=== PATIENT | female | born 1940 | race Caucasian/White ===

== ENCOUNTER → 2017-11-20 06:56 | Outpatient (CLI) | payer OTHER, SELFPAY ==
[2017-11-20 07:53] LABS: Add Manual Diff / Slide Review NO; Basophils Percent Auto 0.9 % (0-2); Eosinophils Percent Auto 5.5 % (2-4); Hematocrit 45.1 % (36-46); Hemoglobin 15.2 g/dL (12.0-16.0); Lymphocytes Percent Auto 35.7 % (25-40); Mean Corpuscular HGB Conc 33.6 % (30-36); Mean Corpuscular Hemoglobin 28.4 PG (26-34); Mean Corpuscular Volume 84.6 fL (80-100); Monocytes Percent Auto 9.7 % (3-14); Neutrophils Absolute Auto 3600 /uL (3000-5900); Neutrophils Percent Auto 48.2 % (50-75); Platelet Count 220 X10^3/uL (150-400); Red Blood Cell Count 5.33 X10^6/uL (4.0-5.2); Red Cell Distribution Width 13.9 % (11.6-14.8); White Blood Cell Count 7.5 X10^3/uL (4.5-11.0)
[2017-11-20 08:12] LABS: Alanine Aminotransferase 26 IU/L (9-52); Albumin 4.2 g/dL (3.5-5.0); Albumin Globulin Ratio 1.3 (1.0-2.8); Alkaline Phosphatase 174 U/L (38-126); Aspartate Aminotransferase 33 IU/L (14-36); BUN Creatinine Ratio 38.6 (6-22); Bilirubin Total 0.6 mg/dL (0.2-1.3); Blood Urea Nitrogen 27 mg/dL (7-17); Calcium 9.4 mg/dL (8.4-10.2); Carbon Dioxide 26 mmol/L (22-32); Chloride 105 mmol/L (98-107); Cholesterol 119 mg/dL (140-199); Estimated Glomerular Filt Rate > 60.0 mL/min (>60); Globulin 3.3 g/dL (1.7-4.1); Glucose 137 mg/dL (80-110); HDL Cholesterol 33 mg/dL (40-60); HEMOLYSIS 21 (0-50); LDL Cholesterol Calculated 50 mg/dL (<100); Potassium 4.1 mmol/L (3.4-5.1); Sodium 144 mmol/L (137-145); Total Protein 7.5 g/dL (6.3-8.2); Triglycerides 178 mg/dL (35-150)
[2017-11-20 08:14] LABS: Creatinine Urine Random 18.3 mg/dL
[2017-11-20 08:20] LABS: Hemoglobin A1C% w Est Avg Glu 8.9 % (4.0-6.0)
[2017-11-20 08:25] LABS: Microalbumi Creatinin Ratio Ur 32.7 ug/mg CR (<30); Microalbumin Urine Random < 0.6 mg/dL (0-1.6)
[2017-11-20 08:49] LABS: TSH w/ Reflex to FT4 0.95 uIU/mL (0.47-4.68)
== END ==
PROVIDERS: PCP Family Medicine; Visit Provider Family Medicine
DX: I10 Essential (primary) hypertension (principal); E11.9 Type 2 diabetes mellitus without complications
CPT/HCPCS: 36415; 80053; 80061; 82043; 82570; 83036; 84443; 85025

== ENCOUNTER 2018-01-28 16:00 | Outpatient (RCR) | payer OTHER, SELFPAY ==
--- NOTE | 2017-11-02 12:21 | PT.OIE ---
Current Diagnoses Pain in left shoulder (10/29/17) Past Medical History (Last Updated 10/06/17 @ 11:29 by Live Castro MD) Essential hypertension (Chronic 09/20/10) Systolic congestive heart failure (Chronic 09/20/10) Controlled type 2 diabetes mellitus (Chronic 09/20/10) Atrial fibrillation (Chronic 09/20/10) Renal artery stenosis (Chronic 09/20/10) Chronic diarrhea (Chronic 06/10/16) History of partial surgical removal of colon (Chronic 06/10/16) Past Surgical History Status post dilation and curettage Provider Visit Care Team Role Provider Type Live Castro MD Attending Provider Physician Family Provider Primary Care Provider Specialty: Family Practice Address: [address] [place] [address] Email: [email or web address] Physical Therapy Initial Evaluation PT-OP-A Visit Information Start: 11/02/17 11:54 Freq: Status: Active Protocol: Document 10/29/17 09:00 [facility] (Rec: 11/02/17 12:12 [facility] [email or web address]) Out-Patient Physical Therapy Visit Information Visit Information Visit Type Initial Evaluation Visit Start Time 09:00 Visit Stop Time 09:50 Total Visit Minutes 50 Visit Number 1 Evaluation Information Evaluation Date 10/29/17 PT-OP-B Current Condition Start: 11/02/17 11:54 Freq: Status: Active Protocol: Document 11/02/17 12:12 [facility] (Rec: 11/02/17 12:21 [facility] [email or web address]) Current Condition History of Current Condition Onset Date 3 months ago Current Complaints left sided shoulder pain rated 7/10, frequent falls, urinary incontinence History of Current Condition Batsheva Weber reports she fell 3 months ago landing on her left shoulder. She reports she falls often due to neuropathy in her feet. She has a walker but was not currently using it as she was in her daughters kitchen. She reports having frequent falls and reports she was exercising at the pool but has not been able to continue due to urinary incontinence. Batsheva Weber reports she was recently started on Oxybutynin from her urologist and thinks this may be helping. She has a history of hypertension, type II diabetes, neuropathy bilateral feet, hip and knee replacement Prior Treatments and Tests negative X-ray of the shoulder Treatment Goals Patient/Caregiver Goals The patients goals include decreasing pain and improving shoulder function Prior Functional Status Baseline Function- ADL's Independent Baseline Function- Mobility Modified Independent Current Functional Impairments (Reported) Functional Limitations- ADL's The patient is limited in ADL' s that require lifting or reaching over head Functional Limitations- Mobility/Gait The patient requires a walker for community ambulation due to neuropathy in both feet PT-OP-J Posture/Palpation/Skin Start: 11/02/17 11:54 Freq: Status: Active Protocol: Document 11/02/17 12:12 [facility] (Rec: 11/02/17 12:21 [facility] [email or web address]) Posture Evaluation Position Standing Evaluation View Anterior Head/C-Spine Posture Flexed Forward Head Shoulder Posture (L) Rounded (R) Rounded (L) Forward (R) Forward Palpation Assessment Location One Palpation Location left upper trapezius, lateral deltoid, medial border scapula Palpation Findings Soft Tissue Tightness Muscle Guarding Tenderness PT-OP-K Range of Motion Start: 11/02/17 11:54 Freq: Status: Active Protocol: Document 10/29/17 09:00 [facility] (Rec: 11/02/17 12:12 [facility] [email or web address]) Shoulder Goniometric Range of Motion Shoulder Measured in Degrees Right Shoulder ROM WFL Yes Testing Position Supine Left Shoulder ROM WFL No Testing Position Supine Flexion 90 Abduction 90 External Rotation at 45 degrees 60 Abduction Internal Rotation 70 Internal Rotation Behind Back (text) to sacrum Shoulder ROM Limitations Shoulder ROM Limitations Soft Tissue Tightness Muscle Weakness Pain PT-OP-M Strength Start: 11/02/17 11:54 Freq: Status: Active Protocol: Document 10/29/17 09:00 [facility] (Rec: 11/02/17 12:12 [facility] [email or web address]) Shoulder Strength Shoulder Manual Muscle Testing Left Flexion 2+ Poor+ Extension 3- Fair- Abduction (C5) 2 Poor Adduction 2 Poor External Rotation 2 Poor Internal Rotation 2+ Poor+ Horizontal Abduction 3 Fair Horizontal Adduction 3 Fair Right Flexion 4 Good Extension 4 Good Abduction (C5) 4 Good Adduction 4 Good External Rotation 4 Good Internal Rotation 4 Good Horizontal Abduction 4 Good Horizontal Adduction 4 Good PT-OP-Q Treatments Start: 11/02/17 11:54 Freq: Status: Active Protocol: Document 10/29/17 09:00 [facility] (Rec: 11/02/17 12:12 [facility] [email or web address]) Therapeutic Exercises Supine Exercises 1 Supine Exercise Name AAROM with stick of shoulder flexion and ER in Supine Side bilateral Reps/Minutes 20 reps ea Sitting Exercises 1 Sitting Exercise Name seated shoulder dayanara flexion Side bilateral PT-OP-R Modalities Start: 11/02/17 11:54 Freq: Status: Active Protocol: Document 10/29/17 09:00 [facility] (Rec: 11/02/17 12:12 [facility] [email or web address]) Hot Pack/Cold Pack Treatment Hot Pack Location left shoulder Patient Position Hooklying Patient Tolerance Good Comments 10 minutes prior to AAROM PT-OP-T Assessment and Plan Start: 11/02/17 11:54 Freq: Status: Active Protocol: Document 10/29/17 09:00 [facility] (Rec: 11/02/17 12:12 [facility] [email or web address]) Physical Therapy Assessment Rehab Potential Rehabilitation Potential Good Evaluation Complexity Number of Personal Factors/Comorbidities 0 Number of Body Systems Impaired 1-2 Clinical Presentation at Evaluation Stable Impairments Impairments Functional Activities Pain Posture ROM Soft Tissue Mobility Strength Goals Three Impairment Decreased shoulder strength Gunner Mate Goal (LTG) Improve shoulder strength of both the rotator cuff and scapula stabilizers to promote improved function of the shoulder LTG Duration 8 weeks Two Impairment decreased shoulder ROM Gunner Mate Goal (LTG) Improve Left shoulder ROM to WFL and with out pain at the end range LTG Duration 8 weeks One Impairment Left shoulder pain rated 6-7/ 10 worse at the end of the day Short Term Goal (STG) pain is decreased from 6-7/10 to 1-2/10 and Batsheva has improved tolerance for activities that require use of her shoulder during the day STG Duration 6 weeks Assessment Summary Assessment Batsheva Weber presents to physical therapy with symptoms of left shoulder pain following a fall 3 months ago in which she landed on her shoulder. A X-ray has been taken and is negative for any fractures. Upon talking with Batsheva is it apparent that she frequently falls and she attributes this to her neuropathy from diabetes. She reports she has a walker but was not using it at the time of the fall as she was in her daughters kitchen. She notes that she had been exercising in the pool and doing PT with our aquatic therapist in the past but urinary incontinence has made it so that she is unable to continue with this right now. She may benefit from pelvic floor strengthening as well as balance training to help prevent further falls and injuries. With her examination today Batsheva presented with decreased shoulder ROM but after heat and gentle PROM this did improve some. She has decreased strength and poor postural habits contributing to her shoulder pain. Physical therapy will address these impairments and work toward improved shoulder function with decreased pain Physical Therapy Plan Frequency and Duration Frequency of Treatment 2x/Week Duration of Treatment 8 weeks Plan of Care Start Date 10/29/17 Plan of Care End Date 12/17/17 Therapeutic Interventions Therapeutic Interventions Home Exercise Program Manual Therapy Neuromuscular Re-education Patient/Caregiver Education Self-Care/Home Management Soft Tissue Mobilization Taping Therapeutic Exercises Modalities Hot Packs Ultrasound Next Visit Focus/Plan Next Note Type Treatment Note Next Visit Plan begin postural stabilization exercises Please Sign and Return: I have reviewed this Plan of Care and certify that the skilled therapy services above are required to meet the patient?s needs. Physician Signature Date Printed Name and Credentials Clinical Instructor Signature Printed Name and Credentials
--- NOTE | 2017-11-04 12:41 | PT.OTN ---
Current Diagnoses Pain in left shoulder (11/03/17) Physical Therapy Treatment Note PT-OP-A Visit Information Start: 11/02/17 11:54 Freq: Status: Active Protocol: Document 11/03/17 14:30 [facility] (Rec: 11/04/17 12:40 [facility] [email or web address]) Out-Patient Physical Therapy Visit Information Visit Information Visit Type Treatment Note Visit Start Time 14:30 Visit Stop Time 15:25 Total Visit Minutes 55 Visit Number 2 Number of BLEACHER PULP Visits 0 PT-OP-B Current Condition Start: 11/02/17 11:54 Freq: Status: Active Protocol: Document 11/02/17 12:12 [facility] (Rec: 11/02/17 12:21 [facility] [email or web address]) Current Condition History of Current Condition Onset Date 3 months ago Current Complaints left sided shoulder pain rated 7/10, frequent falls, urinary incontinence History of Current Condition Batsheva Weber reports she fell 3 months ago landing on her left shoulder. She reports she falls often due to neuropathy in her feet. She has a walker but was not currently using it as she was in her daughters kitchen. She reports having frequent falls and reports she was exercising at the pool but has not been able to continue due to urinary incontinence. Batsheva Weber reports she was recently started on Oxybutrin from her urologist and thinks this may be helping. She has a history of hypertension, type II diabetes, neuropathy bilateral feet, hip and knee replacement Prior Treatments and Tests negative X-ray of the shoulder Treatment Goals Patient/Caregiver Goals The patients goals include decreasing pain and improving shoulder function Prior Functional Status Baseline Function- ADL's Independent Baseline Function- Mobility Modified Independent Current Functional Impairments (Reported) Functional Limitations- ADL's The patient is limited in ADL' s that require lifting or reaching over head Functional Limitations- Mobility/Gait The patient requires a walker for community ambulation due to neuropathy in both feet PT-OP-C Subjective Start: 11/02/17 11:54 Freq: Status: Active Protocol: Document 11/03/17 14:30 [facility] (Rec: 11/04/17 12:40 [facility] [email or web address]) OP-PT Subjective Patient Comments Patient Comments Batsheva reports she tolerated last treatment well and ordered a shoulder dayanara for home PT-OP-J Posture/Palpation/Skin Start: 11/02/17 11:54 Freq: Status: Active Protocol: Document 11/02/17 12:12 [facility] (Rec: 11/02/17 12:21 [facility] [email or web address]) Posture Evaluation Position Standing Evaluation View Anterior Head/C-Spine Posture Flexed Forward Head Shoulder Posture (L) Rounded (R) Rounded (L) Forward (R) Forward Palpation Assessment Location One Palpation Location left upper trapezius, lateral deltoid, medial border scapula Palpation Findings Soft Tissue Tightness Muscle Guarding Tenderness PT-OP-K Range of Motion Start: 11/02/17 11:54 Freq: Status: Active Protocol: Document 10/29/17 09:00 [facility] (Rec: 11/02/17 12:12 [facility] [email or web address]) Shoulder Goniometric Range of Motion Shoulder Measured in Degrees Right Shoulder ROM WFL Yes Testing Position Supine Left Shoulder ROM WFL No Testing Position Supine Flexion 90 Abduction 90 External Rotation at 45 degrees 60 Abduction Internal Rotation 70 Internal Rotation Behind Back (text) to sacrum Shoulder ROM Limitations Shoulder ROM Limitations Soft Tissue Tightness Muscle Weakness Pain PT-OP-M Strength Start: 11/02/17 11:54 Freq: Status: Active Protocol: Document 10/29/17 09:00 [facility] (Rec: 11/02/17 12:12 [facility] [email or web address]) Shoulder Strength Shoulder Manual Muscle Testing Left Flexion 2+ Poor+ Extension 3- Fair- Abduction (C5) 2 Poor Adduction 2 Poor External Rotation 2 Poor Internal Rotation 2+ Poor+ Horizontal Abduction 3 Fair Horizontal Adduction 3 Fair Right Flexion 4 Good Extension 4 Good Abduction (C5) 4 Good Adduction 4 Good External Rotation 4 Good Internal Rotation 4 Good Horizontal Abduction 4 Good Horizontal Adduction 4 Good PT-OP-Q Treatments Start: 11/02/17 11:54 Freq: Status: Active Protocol: Document 11/03/17 14:30 [facility] (Rec: 11/04/17 12:40 [facility] [email or web address]) Therapeutic Exercises Supine Exercises 1 Supine Exercise Name AAROM with stick of shoulder flexion and ER in Supine Side bilateral Reps/Minutes 20 reps ea Sitting Exercises 3 Sitting Exercise Name seated shoulder IR and abduction Reps/Minutes 10 reps each 2 Sitting Exercise Name seated rows Equipment Used level 1 theraband Reps/Minutes 2 sets of 10 reps 1 Sitting Exercise Name seated shoulder dayanara flexion Side bilateral Manual Therapy Treatment Manual Techniques 1 Type manual ROM of the left shoulder with end range stretch Comments flexion, abduction, IR/ER PT-OP-R Modalities Start: 11/02/17 11:54 Freq: Status: Active Protocol: Document 11/03/17 14:30 [facility] (Rec: 11/04/17 12:40 [facility] [email or web address]) Hot Pack/Cold Pack Treatment Hot Pack Location left shoulder Patient Position Hooklying Patient Tolerance Good Comments 10 minutes prior to AAROM PT-OP-T Assessment and Plan Start: 11/02/17 11:54 Freq: Status: Active Protocol: Document 11/03/17 14:30 [facility] (Rec: 11/04/17 12:40 [facility] [email or web address]) Physical Therapy Assessment Assessment Summary Assessment good tolerance today for shoulder AAROM, manual stretching and seated rows wtih resistance. Continue to progress exercises as tolerated Physical Therapy Plan Frequency and Duration Frequency of Treatment 2x/Week Duration of Treatment 8 weeks Plan of Care Start Date 10/29/17 Plan of Care End Date 12/17/17 Therapeutic Interventions Therapeutic Interventions Home Exercise Program Manual Therapy Neuromuscular Re-education Patient/Caregiver Education Self-Care/Home Management Soft Tissue Mobilization Taping Therapeutic Exercises Modalities Hot Packs Ultrasound Next Visit Focus/Plan Next Note Type Treatment Note Next Visit Plan progress postural stabilization exercises Please Sign and Return: I have reviewed this Plan of Care and certify that the skilled therapy services above are required to meet the patient?s needs. Physician Signature Date Printed Name and Credentials Clinical Instructor Signature Printed Name and Credentials
--- NOTE | 2017-11-05 11:04 | PT.OTN ---
Current Diagnoses Pain in left shoulder (11/05/17) Physical Therapy Treatment Note PT-OP-A Visit Information Start: 11/02/17 11:54 Freq: Status: Active Protocol: Document 11/03/17 14:30 [facility] (Rec: 11/04/17 12:40 [facility] [email or web address]) Out-Patient Physical Therapy Visit Information Visit Information Visit Type Treatment Note Visit Start Time 14:30 Visit Stop Time 15:25 Total Visit Minutes 55 Visit Number 2 Number of DEVELOPMENT MGR Visits 0 PT-OP-B Current Condition Start: 11/02/17 11:54 Freq: Status: Active Protocol: Document 11/02/17 12:12 [facility] (Rec: 11/02/17 12:21 [facility] [email or web address]) Current Condition History of Current Condition Onset Date 3 months ago Current Complaints left sided shoulder pain rated 7/10, frequent falls, urinary incontinence History of Current Condition Batsheva Weber reports she fell 3 months ago landing on her left shoulder. She reports she falls often due to neuropathy in her feet. She has a walker but was not currently using it as she was in her daughters kitchen. She reports having frequent falls and reports she was exercising at the pool but has not been able to continue due to urinary incontinence. Batsheva Weber reports she was recently started on Oxybutrin from her urologist and thinks this may be helping. She has a history of hypertension, type II diabetes, neuropathy bilateral feet, hip and knee replacement Prior Treatments and Tests negative X-ray of the shoulder Treatment Goals Patient/Caregiver Goals The patients goals include decreasing pain and improving shoulder function Prior Functional Status Baseline Function- ADL's Independent Baseline Function- Mobility Modified Independent Current Functional Impairments (Reported) Functional Limitations- ADL's The patient is limited in ADL' s that require lifting or reaching over head Functional Limitations- Mobility/Gait The patient requires a walker for community ambulation due to neuropathy in both feet PT-OP-C Subjective Start: 11/02/17 11:54 Freq: Status: Active Protocol: Document 11/05/17 10:59 [facility] (Rec: 11/05/17 11:04 [facility] [email or web address]) OP-PT Subjective Patient Comments Patient Comments Batsheva reports her shoulder is doing better but she is experiencing some right sided shoulder pain. PT-OP-J Posture/Palpation/Skin Start: 11/02/17 11:54 Freq: Status: Active Protocol: Document 11/02/17 12:12 [facility] (Rec: 11/02/17 12:21 [facility] [email or web address]) Posture Evaluation Position Standing Evaluation View Anterior Head/C-Spine Posture Flexed Forward Head Shoulder Posture (L) Rounded (R) Rounded (L) Forward (R) Forward Palpation Assessment Location One Palpation Location left upper trapezius, lateral deltoid, medial border scapula Palpation Findings Soft Tissue Tightness Muscle Guarding Tenderness PT-OP-K Range of Motion Start: 11/02/17 11:54 Freq: Status: Active Protocol: Document 10/29/17 09:00 [facility] (Rec: 11/02/17 12:12 [facility] [email or web address]) Shoulder Goniometric Range of Motion Shoulder Measured in Degrees Right Shoulder ROM WFL Yes Testing Position Supine Left Shoulder ROM WFL No Testing Position Supine Flexion 90 Abduction 90 External Rotation at 45 degrees 60 Abduction Internal Rotation 70 Internal Rotation Behind Back (text) to sacrum Shoulder ROM Limitations Shoulder ROM Limitations Soft Tissue Tightness Muscle Weakness Pain PT-OP-M Strength Start: 11/02/17 11:54 Freq: Status: Active Protocol: Document 10/29/17 09:00 [facility] (Rec: 11/02/17 12:12 [facility] [email or web address]) Shoulder Strength Shoulder Manual Muscle Testing Left Flexion 2+ Poor+ Extension 3- Fair- Abduction (C5) 2 Poor Adduction 2 Poor External Rotation 2 Poor Internal Rotation 2+ Poor+ Horizontal Abduction 3 Fair Horizontal Adduction 3 Fair Right Flexion 4 Good Extension 4 Good Abduction (C5) 4 Good Adduction 4 Good External Rotation 4 Good Internal Rotation 4 Good Horizontal Abduction 4 Good Horizontal Adduction 4 Good PT-OP-Q Treatments Start: 11/02/17 11:54 Freq: Status: Active Protocol: Document 11/05/17 10:59 [facility] (Rec: 11/05/17 11:04 [facility] [email or web address]) Therapeutic Exercises Supine Exercises 1 Supine Exercise Name AAROM with stick of shoulder flexion and ER in Supine Side bilateral Reps/Minutes 20 reps ea Sitting Exercises 3 Sitting Exercise Name seated shoulder IR and abduction Reps/Minutes 10 reps each 2 Sitting Exercise Name seated rows Equipment Used level 1 theraband Reps/Minutes 2 sets of 10 reps 1 Sitting Exercise Name seated shoulder dayanara flexion Side bilateral Standing Exercises 1 Standing Exercise Name standing shoulder extension AAROM Reps/Minutes 20 reps PT-OP-R Modalities Start: 11/02/17 11:54 Freq: Status: Active Protocol: Document 11/05/17 10:59 [facility] (Rec: 11/05/17 11:04 [facility] [email or web address]) Hot Pack/Cold Pack Treatment Hot Pack Location left shoulder Patient Position Hooklying Patient Tolerance Good Comments 10 minutes prior to AAROM PT-OP-T Assessment and Plan Start: 11/02/17 11:54 Freq: Status: Active Protocol: Document 11/05/17 10:59 [facility] (Rec: 11/05/17 11:04 [facility] [email or web address]) Physical Therapy Assessment Assessment Summary Assessment great improvement of shoulder ROM to 140 deg flexion today AAROM on the left. Physical Therapy Plan Frequency and Duration Frequency of Treatment 2x/Week Duration of Treatment 8 weeks Plan of Care Start Date 10/29/17 Plan of Care End Date 12/17/17 Therapeutic Interventions Therapeutic Interventions Home Exercise Program Manual Therapy Neuromuscular Re-education Patient/Caregiver Education Self-Care/Home Management Soft Tissue Mobilization Taping Therapeutic Exercises Modalities Hot Packs Ultrasound Next Visit Focus/Plan Next Visit Plan continue to add postural exercises to Glenn[place] program Please Sign and Return: I have reviewed this Plan of Care and certify that the skilled therapy services above are required to meet the patient?s needs. Physician Signature Date Printed Name and Credentials Clinical Instructor Signature Printed Name and Credentials
--- NOTE | 2017-11-12 13:22 | PT.OTN ---
Current Diagnoses Pain in left shoulder (11/12/17) Physical Therapy Treatment Note PT-OP-A Visit Information Start: 11/02/17 11:54 Freq: Status: Active Protocol: Document 11/03/17 14:30 [facility] (Rec: 11/04/17 12:40 [facility] [email or web address]) Out-Patient Physical Therapy Visit Information Visit Information Visit Type Treatment Note Visit Start Time 14:30 Visit Stop Time 15:25 Total Visit Minutes 55 Visit Number 2 Number of BASEBALL SEWER HAND Visits 0 PT-OP-B Current Condition Start: 11/02/17 11:54 Freq: Status: Active Protocol: Document 11/02/17 12:12 [facility] (Rec: 11/02/17 12:21 [facility] [email or web address]) Current Condition History of Current Condition Onset Date 3 months ago Current Complaints left sided shoulder pain rated 7/10, frequent falls, urinary incontinence History of Current Condition Batsheva Weber reports she fell 3 months ago landing on her left shoulder. She reports she falls often due to neuropathy in her feet. She has a walker but was not currently using it as she was in her daughters kitchen. She reports having frequent falls and reports she was exercising at the pool but has not been able to continue due to urinary incontinence. Batsheva Weber reports she was recently started on Oxybutrin from her urologist and thinks this may be helping. She has a history of hypertension, type II diabetes, neuropathy bilateral feet, hip and knee replacement Prior Treatments and Tests negative X-ray of the shoulder Treatment Goals Patient/Caregiver Goals The patients goals include decreasing pain and improving shoulder function Prior Functional Status Baseline Function- ADL's Independent Baseline Function- Mobility Modified Independent Current Functional Impairments (Reported) Functional Limitations- ADL's The patient is limited in ADL' s that require lifting or reaching over head Functional Limitations- Mobility/Gait The patient requires a walker for community ambulation due to neuropathy in both feet PT-OP-C Subjective Start: 11/02/17 11:54 Freq: Status: Active Protocol: Document 11/12/17 09:00 [facility] (Rec: 11/12/17 13:22 [facility] [email or web address]) OP-PT Subjective Patient Comments Patient Comments Batsheva reports improvements of symptoms and has been able to sleep through the night now. She also returned to water walking and exercise Patient Reported Progress Improving PT-OP-J Posture/Palpation/Skin Start: 11/02/17 11:54 Freq: Status: Active Protocol: Document 11/02/17 12:12 [facility] (Rec: 11/02/17 12:21 [facility] [email or web address]) Posture Evaluation Position Standing Evaluation View Anterior Head/C-Spine Posture Flexed Forward Head Shoulder Posture (L) Rounded (R) Rounded (L) Forward (R) Forward Palpation Assessment Location One Palpation Location left upper trapezius, lateral deltoid, medial border scapula Palpation Findings Soft Tissue Tightness Muscle Guarding Tenderness PT-OP-K Range of Motion Start: 11/02/17 11:54 Freq: Status: Active Protocol: Document 10/29/17 09:00 [facility] (Rec: 11/02/17 12:12 [facility] [email or web address]) Shoulder Goniometric Range of Motion Shoulder Measured in Degrees Right Shoulder ROM WFL Yes Testing Position Supine Left Shoulder ROM WFL No Testing Position Supine Flexion 90 Abduction 90 External Rotation at 45 degrees 60 Abduction Internal Rotation 70 Internal Rotation Behind Back (text) to sacrum Shoulder ROM Limitations Shoulder ROM Limitations Soft Tissue Tightness Muscle Weakness Pain PT-OP-M Strength Start: 11/02/17 11:54 Freq: Status: Active Protocol: Document 10/29/17 09:00 [facility] (Rec: 11/02/17 12:12 [facility] [email or web address]) Shoulder Strength Shoulder Manual Muscle Testing Left Flexion 2+ Poor+ Extension 3- Fair- Abduction (C5) 2 Poor Adduction 2 Poor External Rotation 2 Poor Internal Rotation 2+ Poor+ Horizontal Abduction 3 Fair Horizontal Adduction 3 Fair Right Flexion 4 Good Extension 4 Good Abduction (C5) 4 Good Adduction 4 Good External Rotation 4 Good Internal Rotation 4 Good Horizontal Abduction 4 Good Horizontal Adduction 4 Good PT-OP-Q Treatments Start: 11/02/17 11:54 Freq: Status: Active Protocol: Document 11/12/17 09:00 [facility] (Rec: 11/12/17 13:22 [facility] [email or web address]) Therapeutic Exercises Supine Exercises 1 Supine Exercise Name AAROM with stick of shoulder flexion and ER in Supine Side bilateral Reps/Minutes 20 reps ea Sitting Exercises 3 Sitting Exercise Name seated shoulder IR and abduction Reps/Minutes 10 reps each Standing Exercises 4 Standing Exercise Name ARMAND calf stretch 3 Standing Exercise Name standing balance exercises Comments single leg stance, tandem stance, balance board 2 Standing Exercise Name standing rows and lat pull down Reps/Minutes 2 sets of 10 each 1 Standing Exercise Name standing shoulder extension AAROM Reps/Minutes 20 reps Manual Therapy Treatment Manual Techniques 1 Type manual ROM of the left shoulder with end range stretch Comments flexion, abduction, IR/ER with end range stretch PT-OP-R Modalities Start: 11/02/17 11:54 Freq: Status: Active Protocol: Document 11/12/17 09:00 [facility] (Rec: 11/12/17 13:22 [facility] [email or web address]) Hot Pack/Cold Pack Treatment Hot Pack Location left shoulder Patient Position Hooklying Patient Tolerance Good Comments 10 minutes prior to AAROM PT-OP-T Assessment and Plan Start: 11/02/17 11:54 Freq: Status: Active Protocol: Document 11/12/17 09:00 [facility] (Rec: 11/12/17 13:22 [facility] [email or web address]) Physical Therapy Assessment Progress Towards Goals Progress Towards Goals Progressing Toward Goals Assessment Summary Assessment shoulder flexion 150 today and Batsheva tolerated standing for rows and lat pull down. She was also able to begin her water exercises as well Physical Therapy Plan Frequency and Duration Frequency of Treatment 2x/Week Duration of Treatment 8 weeks Plan of Care Start Date 10/29/17 Plan of Care End Date 12/17/17 Therapeutic Interventions Therapeutic Interventions Home Exercise Program Manual Therapy Neuromuscular Re-education Patient/Caregiver Education Self-Care/Home Management Soft Tissue Mobilization Taping Therapeutic Exercises Modalities Hot Packs Ultrasound Next Visit Focus/Plan Next Visit Plan begin biodex for warm up and continue to progress exercises and balance exercises
--- NOTE | 2017-11-19 10:47 | PT.OTN ---
Current Diagnoses Pain in left shoulder (11/19/17) Physical Therapy Treatment Note PT-OP-A Visit Information Start: 11/02/17 11:54 Freq: Status: Active Protocol: Document 11/19/17 09:00 [facility] (Rec: 11/19/17 10:47 [facility] [email or web address]) Out-Patient Physical Therapy Visit Information Visit Information Visit Type Treatment Note Visit Start Time 09:00 Visit Stop Time 09:45 Total Visit Minutes 45 Visit Number 6 Number of SUPERVISOR ENGINE [employer]SEMBLY Visits 0 PT-OP-B Current Condition Start: 11/02/17 11:54 Freq: Status: Active Protocol: Document 11/02/17 12:12 [facility] (Rec: 11/02/17 12:21 [facility] [email or web address]) Current Condition History of Current Condition Onset Date 3 months ago Current Complaints left sided shoulder pain rated 7/10, frequent falls, urinary incontinence History of Current Condition Batsheva Weber reports she fell 3 months ago landing on her left shoulder. She reports she falls often due to neuropathy in her feet. She has a walker but was not currently using it as she was in her daughters kitchen. She reports having frequent falls and reports she was exercising at the pool but has not been able to continue due to urinary incontinence. Batsheva Weber reports she was recently started on Oxybutrin from her urologist and thinks this may be helping. She has a history of hypertension, type II diabetes, neuropathy bilateral feet, hip and knee replacement Prior Treatments and Tests negative X-ray of the shoulder Treatment Goals Patient/Caregiver Goals The patients goals include decreasing pain and improving shoulder function Prior Functional Status Baseline Function- ADL's Independent Baseline Function- Mobility Modified Independent Current Functional Impairments (Reported) Functional Limitations- ADL's The patient is limited in ADL' s that require lifting or reaching over head Functional Limitations- Mobility/Gait The patient requires a walker for community ambulation due to neuropathy in both feet PT-OP-C Subjective Start: 11/02/17 11:54 Freq: Status: Active Protocol: Document 11/19/17 09:00 [facility] (Rec: 11/19/17 10:47 [facility] [email or web address]) OP-PT Subjective Patient Comments Patient Comments Batsheva states she has her home shoulder pully now and has been using it. She is noting the change in weather with her shoulder but overall she is doing better. PT-OP-J Posture/Palpation/Skin Start: 11/02/17 11:54 Freq: Status: Active Protocol: Document 11/02/17 12:12 [facility] (Rec: 11/02/17 12:21 [facility] [email or web address]) Posture Evaluation Position Standing Evaluation View Anterior Head/C-Spine Posture Flexed Forward Head Shoulder Posture (L) Rounded (R) Rounded (L) Forward (R) Forward Palpation Assessment Location One Palpation Location left upper trapezius, lateral deltoid, medial border scapula Palpation Findings Soft Tissue Tightness Muscle Guarding Tenderness PT-OP-K Range of Motion Start: 11/02/17 11:54 Freq: Status: Active Protocol: Document 10/29/17 09:00 [facility] (Rec: 11/02/17 12:12 [facility] [email or web address]) Shoulder Goniometric Range of Motion Shoulder Measured in Degrees Right Shoulder ROM WFL Yes Testing Position Supine Left Shoulder ROM WFL No Testing Position Supine Flexion 90 Abduction 90 External Rotation at 45 degrees 60 Abduction Internal Rotation 70 Internal Rotation Behind Back (text) to sacrum Shoulder ROM Limitations Shoulder ROM Limitations Soft Tissue Tightness Muscle Weakness Pain PT-OP-M Strength Start: 11/02/17 11:54 Freq: Status: Active Protocol: Document 10/29/17 09:00 [facility] (Rec: 11/02/17 12:12 [facility] [email or web address]) Shoulder Strength Shoulder Manual Muscle Testing Left Flexion 2+ Poor+ Extension 3- Fair- Abduction (C5) 2 Poor Adduction 2 Poor External Rotation 2 Poor Internal Rotation 2+ Poor+ Horizontal Abduction 3 Fair Horizontal Adduction 3 Fair Right Flexion 4 Good Extension 4 Good Abduction (C5) 4 Good Adduction 4 Good External Rotation 4 Good Internal Rotation 4 Good Horizontal Abduction 4 Good Horizontal Adduction 4 Good PT-OP-Q Treatments Start: 11/02/17 11:54 Freq: Status: Active Protocol: Document 11/19/17 09:00 [facility] (Rec: 11/19/17 10:47 [facility] [email or web address]) Cardio Equipment Recumbent Elliptical (Biodex) Duration (Minutes) 5 Resistance level 3 Therapeutic Exercises Supine Exercises 1 Supine Exercise Name AAROM with stick of shoulder flexion and ER in Supine Side bilateral Reps/Minutes 20 reps ea Sitting Exercises 3 Sitting Exercise Name seated shoulder IR and abduction Reps/Minutes 10 reps each 1 Sitting Exercise Name seated shoulder dayanara flexion Side bilateral Standing Exercises 4 Standing Exercise Name ARMAND calf stretch 3 Standing Exercise Name standing balance exercises Comments single leg stance, tandem stance, balance board 2 Standing Exercise Name standing rows and lat pull down Reps/Minutes 2 sets of 10 each 1 Standing Exercise Name standing shoulder extension AAROM Reps/Minutes 20 reps Manual Therapy Treatment Manual Techniques 1 Type manual ROM of the left shoulder with end range stretch Comments flexion, abduction, IR/ER with end range stretch PT-OP-R Modalities Start: 11/02/17 11:54 Freq: Status: Active Protocol: Document 11/12/17 09:00 [facility] (Rec: 11/12/17 13:22 [facility] [email or web address]) Hot Pack/Cold Pack Treatment Hot Pack Location left shoulder Patient Position Hooklying Patient Tolerance Good Comments 10 minutes prior to AAROM PT-OP-T Assessment and Plan Start: 11/02/17 11:54 Freq: Status: Active Protocol: Document 11/19/17 09:00 [facility] (Rec: 11/19/17 10:47 [facility] [email or web address]) Physical Therapy Assessment Progress Towards Goals Progress Towards Goals Progressing Toward Goals Progress Comments continued increase in shoulder ROM and improving shoulder strength Assessment Summary Assessment good tolerance for ther ex and the addition of the biodex today. Physical Therapy Plan Frequency and Duration Frequency of Treatment 2x/Week Duration of Treatment 8 weeks Plan of Care Start Date 10/29/17 Plan of Care End Date 12/17/17 Therapeutic Interventions Therapeutic Interventions Home Exercise Program Manual Therapy Neuromuscular Re-education Patient/Caregiver Education Self-Care/Home Management Soft Tissue Mobilization Taping Therapeutic Exercises Modalities Hot Packs Ultrasound Next Visit Focus/Plan Next Visit Plan progress exercises as Batsheva is able to tolerate
--- NOTE | 2017-11-26 15:04 | PT.OTN ---
Current Diagnoses Pain in left shoulder (11/26/17) Physical Therapy Treatment Note PT-OP-A Visit Information Start: 11/02/17 11:54 Freq: Status: Active Protocol: Document 11/26/17 13:00 [facility] (Rec: 11/26/17 15:04 [facility] [email or web address]) Out-Patient Physical Therapy Visit Information Visit Information Visit Type Treatment Note Visit Start Time 13:00 Visit Stop Time 13:45 Total Visit Minutes 45 Visit Number 7 Number of AEROLOGIST Visits 0 PT-OP-B Current Condition Start: 11/02/17 11:54 Freq: Status: Active Protocol: Document 11/02/17 12:12 [facility] (Rec: 11/02/17 12:21 [facility] [email or web address]) Current Condition History of Current Condition Onset Date 3 months ago Current Complaints left sided shoulder pain rated 7/10, frequent falls, urinary incontinence History of Current Condition Batsheva Weber reports she fell 3 months ago landing on her left shoulder. She reports she falls often due to neuropathy in her feet. She has a walker but was not currently using it as she was in her daughters kitchen. She reports having frequent falls and reports she was exercising at the pool but has not been able to continue due to urinary incontinence. Batsheva Weber reports she was recently started on Oxybutrin from her urologist and thinks this may be helping. She has a history of hypertension, type II diabetes, neuropathy bilateral feet, hip and knee replacement Prior Treatments and Tests negative X-ray of the shoulder Treatment Goals Patient/Caregiver Goals The patients goals include decreasing pain and improving shoulder function Prior Functional Status Baseline Function- ADL's Independent Baseline Function- Mobility Modified Independent Current Functional Impairments (Reported) Functional Limitations- ADL's The patient is limited in ADL' s that require lifting or reaching over head Functional Limitations- Mobility/Gait The patient requires a walker for community ambulation due to neuropathy in both feet PT-OP-C Subjective Start: 11/02/17 11:54 Freq: Status: Active Protocol: Document 11/26/17 13:00 [facility] (Rec: 11/26/17 15:04 [facility] [email or web address]) OP-PT Subjective Patient Comments Patient Comments Trying to work on shoulder stretches at home PT-OP-J Posture/Palpation/Skin Start: 11/02/17 11:54 Freq: Status: Active Protocol: Document 11/02/17 12:12 [facility] (Rec: 11/02/17 12:21 [facility] [email or web address]) Posture Evaluation Position Standing Evaluation View Anterior Head/C-Spine Posture Flexed Forward Head Shoulder Posture (L) Rounded (R) Rounded (L) Forward (R) Forward Palpation Assessment Location One Palpation Location left upper trapezius, lateral deltoid, medial border scapula Palpation Findings Soft Tissue Tightness Muscle Guarding Tenderness PT-OP-K Range of Motion Start: 11/02/17 11:54 Freq: Status: Active Protocol: Document 10/29/17 09:00 [facility] (Rec: 11/02/17 12:12 [facility] [email or web address]) Shoulder Goniometric Range of Motion Shoulder Measured in Degrees Right Shoulder ROM WFL Yes Testing Position Supine Left Shoulder ROM WFL No Testing Position Supine Flexion 90 Abduction 90 External Rotation at 45 degrees 60 Abduction Internal Rotation 70 Internal Rotation Behind Back (text) to sacrum Shoulder ROM Limitations Shoulder ROM Limitations Soft Tissue Tightness Muscle Weakness Pain PT-OP-M Strength Start: 11/02/17 11:54 Freq: Status: Active Protocol: Document 10/29/17 09:00 [facility] (Rec: 11/02/17 12:12 [facility] [email or web address]) Shoulder Strength Shoulder Manual Muscle Testing Left Flexion 2+ Poor+ Extension 3- Fair- Abduction (C5) 2 Poor Adduction 2 Poor External Rotation 2 Poor Internal Rotation 2+ Poor+ Horizontal Abduction 3 Fair Horizontal Adduction 3 Fair Right Flexion 4 Good Extension 4 Good Abduction (C5) 4 Good Adduction 4 Good External Rotation 4 Good Internal Rotation 4 Good Horizontal Abduction 4 Good Horizontal Adduction 4 Good PT-OP-Q Treatments Start: 11/02/17 11:54 Freq: Status: Active Protocol: Document 11/26/17 13:00 [facility] (Rec: 11/26/17 15:04 [facility] [email or web address]) Cardio Equipment Recumbent Elliptical (Biodex) Duration (Minutes) 5 Resistance level 3 Therapeutic Exercises Supine Exercises 1 Supine Exercise Name AAROM with stick of shoulder flexion and ER in Supine Side bilateral Reps/Minutes 20 reps ea Sitting Exercises 3 Sitting Exercise Name seated shoulder IR and abduction Reps/Minutes 10 reps each 1 Sitting Exercise Name seated shoulder dayanara flexion Side bilateral Standing Exercises 3 Standing Exercise Name standing balance exercises Comments single leg stance, tandem stance, balance board 2 Standing Exercise Name standing rows and lat pull down Reps/Minutes 2 sets of 10 each 1 Standing Exercise Name standing shoulder extension AAROM Reps/Minutes 20 reps Manual Therapy Treatment Manual Techniques 1 Type manual ROM of the left shoulder with end range stretch Comments flexion, abduction, IR/ER with end range stretch PT-OP-R Modalities Start: 11/02/17 11:54 Freq: Status: Active Protocol: Document 11/12/17 09:00 [facility] (Rec: 11/12/17 13:22 [facility] [email or web address]) Hot Pack/Cold Pack Treatment Hot Pack Location left shoulder Patient Position Hooklying Patient Tolerance Good Comments 10 minutes prior to AAROM PT-OP-T Assessment and Plan Start: 11/02/17 11:54 Freq: Status: Active Protocol: Document 11/26/17 13:00 [facility] (Rec: 11/26/17 15:04 [facility] [email or web address]) Physical Therapy Assessment Progress Towards Goals Progress Towards Goals Progressing Toward Goals Assessment Summary Assessment good tolerance for ther ex and strength is improving Physical Therapy Plan Frequency and Duration Frequency of Treatment 2x/Week Duration of Treatment 8 weeks Plan of Care Start Date 10/29/17 Plan of Care End Date 12/17/17 Therapeutic Interventions Therapeutic Interventions Home Exercise Program Manual Therapy Neuromuscular Re-education Patient/Caregiver Education Self-Care/Home Management Soft Tissue Mobilization Taping Therapeutic Exercises Modalities Hot Packs Ultrasound Next Visit Focus/Plan Next Note Type Progress Note Next Visit Plan progress exercises asd Batsheva is able to tolerate
--- NOTE | 2017-12-08 16:58 | PT.OTN ---
Current Diagnoses Pain in left shoulder (12/08/17) Physical Therapy Treatment Note PT-OP-A Visit Information Start: 11/02/17 11:54 Freq: Status: Active Protocol: Document 12/08/17 16:52 ON LICENSE OF [facility] (Rec: 12/08/17 16:57 ON LICENSE OF [facility] [email or web address]) Out-Patient Physical Therapy Visit Information Visit Information Visit Type Treatment Note Visit Start Time 16:00 Visit Stop Time 16:45 Total Visit Minutes 45 Visit Number 8 Number of EMBROIDERY PATTERNMAKER Visits 0 PT-OP-B Current Condition Start: 11/02/17 11:54 Freq: Status: Active Protocol: Document 11/02/17 12:12 [facility] (Rec: 11/02/17 12:21 ON LICENSE OF [facility] [email or web address]) Current Condition History of Current Condition Onset Date 3 months ago Current Complaints left sided shoulder pain rated 7/10, frequent falls, urinary incontinence History of Current Condition Batsheva Weber reports she fell 3 months ago landing on her left shoulder. She reports she falls often due to neuropathy in her feet. She has a walker but was not currently using it as she was in her daughters kitchen. She reports having frequent falls and reports she was exercising at the pool but has not been able to continue due to urinary incontinence. Batsheva Weber reports she was recently started on Oxybutrin from her urologist and thinks this may be helping. She has a history of hypertension, type II diabetes, neuropathy bilateral feet, hip and knee replacement Prior Treatments and Tests negative X-ray of the shoulder Treatment Goals Patient/Caregiver Goals The patients goals include decreasing pain and improving shoulder function Prior Functional Status Baseline Function- ADL's Independent Baseline Function- Mobility Modified Independent Current Functional Impairments (Reported) Functional Limitations- ADL's The patient is limited in ADL' s that require lifting or reaching over head Functional Limitations- Mobility/Gait The patient requires a walker for community ambulation due to neuropathy in both feet PT-OP-C Subjective Start: 11/02/17 11:54 Freq: Status: Active Protocol: Document 12/08/17 16:52 ON LICENSE OF [facility] (Rec: 12/08/17 16:57 ON LICENSE OF [facility] [email or web address]) OP-PT Subjective Patient Comments Patient Comments Batsheva reports she is very tight in her upper neck and shoulders today as she has been sitting at a retreat for 8 hours per day PT-OP-J Posture/Palpation/Skin Start: 11/02/17 11:54 Freq: Status: Active Protocol: Document 11/02/17 12:12 [facility] (Rec: 11/02/17 12:21 [facility] [email or web address]) Posture Evaluation Position Standing Evaluation View Anterior Head/C-Spine Posture Flexed Forward Head Shoulder Posture (L) Rounded (R) Rounded (L) Forward (R) Forward Palpation Assessment Location One Palpation Location left upper trapezius, lateral deltoid, medial border scapula Palpation Findings Soft Tissue Tightness Muscle Guarding Tenderness PT-OP-K Range of Motion Start: 11/02/17 11:54 Freq: Status: Active Protocol: Document 10/29/17 09:00 [facility] (Rec: 11/02/17 12:12 [facility] [email or web address]) Shoulder Goniometric Range of Motion Shoulder Measured in Degrees Right Shoulder ROM WFL Yes Testing Position Supine Left Shoulder ROM WFL No Testing Position Supine Flexion 90 Abduction 90 External Rotation at 45 degrees 60 Abduction Internal Rotation 70 Internal Rotation Behind Back (text) to sacrum Shoulder ROM Limitations Shoulder ROM Limitations Soft Tissue Tightness Muscle Weakness Pain PT-OP-M Strength Start: 11/02/17 11:54 Freq: Status: Active Protocol: Document 10/29/17 09:00 [facility] (Rec: 11/02/17 12:12 [facility] [email or web address]) Shoulder Strength Shoulder Manual Muscle Testing Left Flexion 2+ Poor+ Extension 3- Fair- Abduction (C5) 2 Poor Adduction 2 Poor External Rotation 2 Poor Internal Rotation 2+ Poor+ Horizontal Abduction 3 Fair Horizontal Adduction 3 Fair Right Flexion 4 Good Extension 4 Good Abduction (C5) 4 Good Adduction 4 Good External Rotation 4 Good Internal Rotation 4 Good Horizontal Abduction 4 Good Horizontal Adduction 4 Good PT-OP-Q Treatments Start: 11/02/17 11:54 Freq: Status: Active Protocol: Document 12/08/17 16:52 [facility] (Rec: 12/08/17 16:57 [facility] [email or web address]) Therapeutic Exercises Supine Exercises 1 Supine Exercise Name AAROM with stick of shoulder flexion and ER in Supine Side bilateral Reps/Minutes 20 reps ea Sitting Exercises 3 Sitting Exercise Name seated shoulder IR and abduction Reps/Minutes 10 reps each 1 Sitting Exercise Name seated shoulder dayanara flexion Side bilateral Standing Exercises 5 Standing Exercise Name standing shoulder abduction with dayanara 4 Standing Exercise Name ARMAND calf stretch 2 Standing Exercise Name standing rows and lat pull down Reps/Minutes 2 sets of 10 each 1 Standing Exercise Name standing shoulder extension AAROM Reps/Minutes 20 reps Manual Therapy Treatment Manual Techniques 2 Type manual stretches for the upper trapezius and scalenes bilaterally 1 Type manual ROM of the left shoulder with end range stretch Comments flexion, abduction, IR/ER with end range stretch PT-OP-R Modalities Start: 11/02/17 11:54 Freq: Status: Active Protocol: Document 11/12/17 09:00 [facility] (Rec: 11/12/17 13:22 [facility] [email or web address]) Hot Pack/Cold Pack Treatment Hot Pack Location left shoulder Patient Position Hooklying Patient Tolerance Good Comments 10 minutes prior to AAROM PT-OP-T Assessment and Plan Start: 11/02/17 11:54 Freq: Status: Active Protocol: Document 12/08/17 16:52 [facility] (Rec: 12/08/17 16:57 [facility] [email or web address]) Physical Therapy Assessment Assessment Summary Assessment needs reminders to do home exercise program Physical Therapy Plan Frequency and Duration Frequency of Treatment 2x/Week Duration of Treatment 8 weeks Plan of Care Start Date 12/08/17 Plan of Care End Date 02/02/18 Therapeutic Interventions Therapeutic Interventions Home Exercise Program Manual Therapy Neuromuscular Re-education Patient/Caregiver Education Self-Care/Home Management Soft Tissue Mobilization Taping Therapeutic Exercises Modalities Hot Packs Ultrasound Next Visit Focus/Plan Next Note Type Treatment Note Next Visit Plan continue to progress exercises as the patient can tolerate
--- NOTE | 2017-12-17 15:37 | PT.OTN ---
Current Diagnoses Pain in left shoulder (12/17/17) Physical Therapy Treatment Note PT-OP-A Visit Information Start: 11/02/17 11:54 Freq: Status: Active Protocol: Document 12/17/17 13:00 [facility] (Rec: 12/17/17 15:36 [facility] [email or web address]) Out-Patient Physical Therapy Visit Information Visit Information Visit Type Treatment Note Visit Start Time 13:00 Visit Stop Time 13:45 Total Visit Minutes 45 Visit Number 9 Number of REMEDIATION PROJECT ENGINEER Visits 0 PT-OP-B Current Condition Start: 11/02/17 11:54 Freq: Status: Active Protocol: Document 11/02/17 12:12 [facility] (Rec: 11/02/17 12:21 [facility] [email or web address]) Current Condition History of Current Condition Onset Date 3 months ago Current Complaints left sided shoulder pain rated 7/10, frequent falls, urinary incontinence History of Current Condition Batsheva Weber reports she fell 3 months ago landing on her left shoulder. She reports she falls often due to neuropathy in her feet. She has a walker but was not currently using it as she was in her daughters kitchen. She reports having frequent falls and reports she was exercising at the pool but has not been able to continue due to urinary incontinence. Batsheva Weber reports she was recently started on Oxybutrin from her urologist and thinks this may be helping. She has a history of hypertension, type II diabetes, neuropathy bilateral feet, hip and knee replacement Prior Treatments and Tests negative X-ray of the shoulder Treatment Goals Patient/Caregiver Goals The patients goals include decreasing pain and improving shoulder function Prior Functional Status Baseline Function- ADL's Independent Baseline Function- Mobility Modified Independent Current Functional Impairments (Reported) Functional Limitations- ADL's The patient is limited in ADL' s that require lifting or reaching over head Functional Limitations- Mobility/Gait The patient requires a walker for community ambulation due to neuropathy in both feet PT-OP-C Subjective Start: 11/02/17 11:54 Freq: Status: Active Protocol: Document 12/17/17 13:00 [facility] (Rec: 12/17/17 15:36 [facility] [email or web address]) OP-PT Subjective Patient Comments Patient Comments Batsheva states she has been back at the pool exercising again and was able to go 5 days this past week. She reports being a little tired today PT-OP-J Posture/Palpation/Skin Start: 11/02/17 11:54 Freq: Status: Active Protocol: Document 11/02/17 12:12 [facility] (Rec: 11/02/17 12:21 [facility] [email or web address]) Posture Evaluation Position Standing Evaluation View Anterior Head/C-Spine Posture Flexed Forward Head Shoulder Posture (L) Rounded (R) Rounded (L) Forward (R) Forward Palpation Assessment Location One Palpation Location left upper trapezius, lateral deltoid, medial border scapula Palpation Findings Soft Tissue Tightness Muscle Guarding Tenderness PT-OP-K Range of Motion Start: 11/02/17 11:54 Freq: Status: Active Protocol: Document 10/29/17 09:00 [facility] (Rec: 11/02/17 12:12 [facility] [email or web address]) Shoulder Goniometric Range of Motion Shoulder Measured in Degrees Right Shoulder ROM WFL Yes Testing Position Supine Left Shoulder ROM WFL No Testing Position Supine Flexion 90 Abduction 90 External Rotation at 45 degrees 60 Abduction Internal Rotation 70 Internal Rotation Behind Back (text) to sacrum Shoulder ROM Limitations Shoulder ROM Limitations Soft Tissue Tightness Muscle Weakness Pain PT-OP-M Strength Start: 11/02/17 11:54 Freq: Status: Active Protocol: Document 10/29/17 09:00 [facility] (Rec: 11/02/17 12:12 [facility] [email or web address]) Shoulder Strength Shoulder Manual Muscle Testing Left Flexion 2+ Poor+ Extension 3- Fair- Abduction (C5) 2 Poor Adduction 2 Poor External Rotation 2 Poor Internal Rotation 2+ Poor+ Horizontal Abduction 3 Fair Horizontal Adduction 3 Fair Right Flexion 4 Good Extension 4 Good Abduction (C5) 4 Good Adduction 4 Good External Rotation 4 Good Internal Rotation 4 Good Horizontal Abduction 4 Good Horizontal Adduction 4 Good PT-OP-Q Treatments Start: 11/02/17 11:54 Freq: Status: Active Protocol: Document 12/17/17 13:00 [facility] (Rec: 12/17/17 15:36 [facility] [email or web address]) Therapeutic Exercises Supine Exercises 1 Supine Exercise Name AAROM with stick of shoulder flexion and ER in Supine Side bilateral Reps/Minutes 20 reps ea Sitting Exercises 3 Sitting Exercise Name seated shoulder IR and abduction Reps/Minutes 10 reps each 1 Sitting Exercise Name seated shoulder dayanara flexion Side bilateral Standing Exercises 7 Standing Exercise Name standing bicep curls Equipment Used 2# Reps/Minutes 2x 10 reps 6 Standing Exercise Name standing shoulder ER Reps/Minutes 3 x 10 reps 5 Standing Exercise Name standing shoulder abduction with dayanara 4 Standing Exercise Name ARMAND calf stretch 2 Standing Exercise Name standing rows and lat pull down Reps/Minutes 2 sets of 10 each 1 Standing Exercise Name standing shoulder extension AAROM Reps/Minutes 20 reps Manual Therapy Treatment Manual Techniques 2 Type manual stretches for the upper trapezius and scalenes bilaterally 1 Type manual ROM of the left shoulder with end range stretch Comments flexion, abduction, IR/ER with end range stretch PT-OP-R Modalities Start: 11/02/17 11:54 Freq: Status: Active Protocol: Document 11/12/17 09:00 [facility] (Rec: 11/12/17 13:22 [facility] [email or web address]) Hot Pack/Cold Pack Treatment Hot Pack Location left shoulder Patient Position Hooklying Patient Tolerance Good Comments 10 minutes prior to AAROM PT-OP-T Assessment and Plan Start: 11/02/17 11:54 Freq: Status: Active Protocol: Document 12/17/17 13:00 [facility] (Rec: 12/17/17 15:36 [facility] [email or web address]) Physical Therapy Assessment Assessment Summary Assessment Shoulder ROM is much improved. Working on improving strength and postural modification Physical Therapy Plan Frequency and Duration Frequency of Treatment 2x/Week Duration of Treatment 8 weeks Plan of Care Start Date 12/08/17 Plan of Care End Date 02/02/18 Therapeutic Interventions Therapeutic Interventions Home Exercise Program Manual Therapy Neuromuscular Re-education Patient/Caregiver Education Self-Care/Home Management Soft Tissue Mobilization Taping Therapeutic Exercises Modalities Hot Packs Ultrasound Next Visit Focus/Plan Next Note Type Treatment Note Next Visit Plan continue to progress exercises as the patient can tolerate
--- NOTE | 2017-12-22 15:44 | PT.OTN ---
Current Diagnoses Pain in left shoulder (12/22/17) Physical Therapy Treatment Note PT-OP-A Visit Information Start: 11/02/17 11:54 Freq: Status: Active Protocol: Document 12/22/17 15:29 [facility] (Rec: 12/22/17 15:43 [facility] [email or web address]) Out-Patient Physical Therapy Visit Information Visit Information Visit Type Progress Note Visit Start Time 11:15 Visit Stop Time 12:00 Total Visit Minutes 45 Visit Number 10 Number of BLOCK BREAKER OPERATOR Visits 0 PT-OP-B Current Condition Start: 11/02/17 11:54 Freq: Status: Active Protocol: Document 11/02/17 12:12 [facility] (Rec: 11/02/17 12:21 [facility] [email or web address] Current Condition History of Current Condition Onset Date 3 months ago Current Complaints left sided shoulder pain rated 7/10, frequent falls, urinary incontinence History of Current Condition Batsheva Weber reports she fell 3 months ago landing on her left shoulder. She reports she falls often due to neuropathy in her feet. She has a walker but was not currently using it as she was in her daughters kitchen. She reports having frequent falls and reports she was exercising at the pool but has not been able to continue due to urinary incontinence. Batsheva Weber reports she was recently started on Oxybutrin from her urologist and thinks this may be helping. She has a history of hypertension, type II diabetes, neuropathy bilateral feet, hip and knee replacement Prior Treatments and Tests negative X-ray of the shoulder Treatment Goals Patient/Caregiver Goals The patients goals include decreasing pain and improving shoulder function Prior Functional Status Baseline Function- ADL's Independent Baseline Function- Mobility Modified Independent Current Functional Impairments (Reported) Functional Limitations- ADL's The patient is limited in ADL' s that require lifting or reaching over head Functional Limitations- Mobility/Gait The patient requires a walker for community ambulation due to neuropathy in both feet PT-OP-C Subjective Start: 11/02/17 11:54 Freq: Status: Active Protocol: Document 12/22/17 15:29 [facility] (Rec: 12/22/17 15:43 [facility] [email or web address]) OP-PT Subjective Patient Comments Patient Comments Batsheva reports she has been able to go to the pool on average 4-5 days in a row. She is still feeling shoulder discomfort. PT-OP-J Posture/Palpation/Skin Start: 11/02/17 11:54 Freq: Status: Active Protocol: Document 11/02/17 12:12 [facility] (Rec: 11/02/17 12:21 [facility] [email or web address]) Posture Evaluation Position Standing Evaluation View Anterior Head/C-Spine Posture Flexed Forward Head Shoulder Posture (L) Rounded (R) Rounded (L) Forward (R) Forward Palpation Assessment Location One Palpation Location left upper trapezius, lateral deltoid, medial border scapula Palpation Findings Soft Tissue Tightness Muscle Guarding Tenderness PT-OP-K Range of Motion Start: 11/02/17 11:54 Freq: Status: Active Protocol: Document 12/22/17 15:29 [facility] (Rec: 12/22/17 15:43 [facility] [email or web address]) Shoulder Goniometric Range of Motion Shoulder Measured in Degrees Right Shoulder ROM WFL Yes Testing Position Sitting Flexion 110 Left Shoulder ROM WFL No Testing Position Sitting Flexion 110 Abduction 110 External Rotation at 45 degrees 70 Abduction Internal Rotation 75 Internal Rotation Behind Back (text) to mid back PT-OP-M Strength Start: 11/02/17 11:54 Freq: Status: Active Protocol: Document 12/22/17 15:29 [facility] (Rec: 12/22/17 15:43 [facility] [email or web address]) Shoulder Strength Shoulder Manual Muscle Testing Left Flexion 3+ Fair+ Extension 3 Fair Abduction (C5) 3+ Fair+ Adduction 3+ Fair+ External Rotation 3+ Fair+ Internal Rotation 3 Fair Horizontal Abduction 3 Fair Horizontal Adduction 3 Fair PT-OP-Q Treatments Start: 11/02/17 11:54 Freq: Status: Active Protocol: Document 12/22/17 15:29 [facility] (Rec: 12/22/17 15:43 [facility] [email or web address]) Manual Therapy Treatment Manual Techniques 2 Type manual stretches for the upper trapezius and scalenes bilaterally 1 Type manual ROM of the left shoulder with end range stretch Comments flexion, abduction, IR/ER with end range stretch PT-OP-R Modalities Start: 11/02/17 11:54 Freq: Status: Active Protocol: Document 11/12/17 09:00 [facility] (Rec: 11/12/17 13:22 [facility] [email or web address]) Hot Pack/Cold Pack Treatment Hot Pack Location left shoulder Patient Position Hooklying Patient Tolerance Good Comments 10 minutes prior to AAROM PT-OP-T Assessment and Plan Start: 11/02/17 11:54 Freq: Status: Active Protocol: Document 12/22/17 15:29 [facility] (Rec: 12/22/17 15:43 [facility] [email or web address]) Physical Therapy Assessment Progress Towards Goals Progress Towards Goals Progressing Toward Goals Progress Comments Batsheva is showing good progress of both shoulder ROM and strength. She has been able to return to her aquatic therapy program as well. She would benefit from continued PT Assessment Summary Assessment Overall Batsheva is making steady progress and is showing improvement with both shoulder ROM and improved strength Physical Therapy Plan Frequency and Duration Frequency of Treatment 2x/Week Duration of Treatment 8 weeks Plan of Care Start Date 12/08/17 Plan of Care End Date 02/02/18 Therapeutic Interventions Therapeutic Interventions Home Exercise Program Manual Therapy Neuromuscular Re-education Patient/Caregiver Education Self-Care/Home Management Soft Tissue Mobilization Taping Therapeutic Exercises Modalities Hot Packs Ultrasound Next Visit Focus/Plan Next Note Type Treatment Note Next Visit Plan continue to progress exercises for shoulder stabilization as the patient can tolerate
--- NOTE | 2018-01-07 13:44 | PT.OTN ---
Current Diagnoses Pain in left shoulder (01/07/18) Physical Therapy Treatment Note PT-OP-A Visit Information Start: 11/02/17 11:54 Freq: Status: Active Protocol: Document 01/05/18 17:19 [facility] (Rec: 01/05/18 17:35 [facility] [email or web address] Out-Patient Physical Therapy Visit Information Visit Information Visit Type Treatment Note Visit Start Time 13:45 Visit Stop Time 14:30 Total Visit Minutes 45 Visit Number 11 Number of BOTTLE PACKING MACHINE CLEANER Visits 0 PT-OP-B Current Condition Start: 11/02/17 11:54 Freq: Status: Active Protocol: Document 11/02/17 12:12 [facility] (Rec: 11/02/17 12:21 [facility] [email or web address][facility] Current Condition History of Current Condition Onset Date 3 months ago Current Complaints left sided shoulder pain rated 7/10, frequent falls, urinary incontinence History of Current Condition Batsheva Weber reports she fell 3 months ago landing on her left shoulder. She reports she falls often due to neuropathy in her feet. She has a walker but was not currently using it as she was in her daughters kitchen. She reports having frequent falls and reports she was exercising at the pool but has not been able to continue due to urinary incontinence. Batsheva Weber reports she was recently started on Oxybutrin from her urologist and thinks this may be helping. She has a history of hypertension, type II diabetes, neuropathy bilateral feet, hip and knee replacement Prior Treatments and Tests negative X-ray of the shoulder Treatment Goals Patient/Caregiver Goals The patients goals include decreasing pain and improving shoulder function Prior Functional Status Baseline Function- ADL's Independent Baseline Function- Mobility Modified Independent Current Functional Impairments (Reported) Functional Limitations- ADL's The patient is limited in ADL' s that require lifting or reaching over head Functional Limitations- Mobility/Gait The patient requires a walker for community ambulation due to neuropathy in both feet PT-OP-C Subjective Start: 11/02/17 11:54 Freq: Status: Active Protocol: Document 01/05/18 17:19 [facility] (Rec: 01/05/18 17:35 [facility] [email or web address]) OP-PT Subjective Patient Comments Patient Comments Batsheva reports that she feels her shoulder is doing better but she has missed 2 weeks at the pool PT-OP-J Posture/Palpation/Skin Start: 11/02/17 11:54 Freq: Status: Active Protocol: Document 11/02/17 12:12 [facility] (Rec: 11/02/17 12:21 [facility] [email or web address]) Posture Evaluation Position Standing Evaluation View Anterior Head/C-Spine Posture Flexed Forward Head Shoulder Posture (L) Rounded (R) Rounded (L) Forward (R) Forward Palpation Assessment Location One Palpation Location left upper trapezius, lateral deltoid, medial border scapula Palpation Findings Soft Tissue Tightness Muscle Guarding Tenderness PT-OP-K Range of Motion Start: 11/02/17 11:54 Freq: Status: Active Protocol: Document 12/22/17 15:29 [facility] (Rec: 12/22/17 15:43 [facility] [email or web address]) Shoulder Goniometric Range of Motion Shoulder Measured in Degrees Right Shoulder ROM WFL Yes Testing Position Sitting Flexion 110 Left Shoulder ROM WFL No Testing Position Sitting Flexion 110 Abduction 110 External Rotation at 45 degrees 70 Abduction Internal Rotation 75 Internal Rotation Behind Back (text) to mid back PT-OP-M Strength Start: 11/02/17 11:54 Freq: Status: Active Protocol: Document 12/22/17 15:29 [facility] (Rec: 12/22/17 15:43 [facility] [email or web address]) Shoulder Strength Shoulder Manual Muscle Testing Left Flexion 3+ Fair+ Extension 3 Fair Abduction (C5) 3+ Fair+ Adduction 3+ Fair+ External Rotation 3+ Fair+ Internal Rotation 3 Fair Horizontal Abduction 3 Fair Horizontal Adduction 3 Fair PT-OP-Q Treatments Start: 11/02/17 11:54 Freq: Status: Active Protocol: Document 01/05/18 17:19 [facility] (Rec: 01/05/18 17:35 [facility] [email or web address]) Cardio Equipment Recumbent Elliptical ([employer]) Duration (Minutes) 5 Resistance level 3 Therapeutic Exercises Sitting Exercises 3 Sitting Exercise Name seated shoulder IR and abduction Reps/Minutes 10 reps each 1 Sitting Exercise Name seated shoulder dayanara flexion Side bilateral Standing Exercises 6 Standing Exercise Name standing shoulder ER Reps/Minutes 3 x 10 reps 2 Standing Exercise Name standing rows and lat pull down Reps/Minutes 2 sets of 10 each 1 Standing Exercise Name standing shoulder extension AAROM Reps/Minutes 20 reps Manual Therapy Treatment Manual Techniques 2 Type manual stretches for the upper trapezius and scalenes bilaterally 1 Type manual ROM of the left shoulder with end range stretch Comments flexion, abduction, IR/ER with end range stretch PT-OP-R Modalities Start: 11/02/17 11:54 Freq: Status: Active Protocol: Document 01/05/18 17:19 [facility] (Rec: 01/05/18 17:35 [facility] [email or web address] Hot Pack/Cold Pack Treatment Hot Pack Location hot pack to the left shoulder Treatment Duration (minutes) 10 Comments end of treatment PT-OP-T Assessment and Plan Start: 11/02/17 11:54 Freq: Status: Active Protocol: Document 01/05/18 17:19 [facility] (Rec: 01/05/18 17:35 [facility] [email or web address]) Physical Therapy Assessment Assessment Summary Assessment Overall Batsheva is making steady progress and is showing improvement with both shoulder ROM and improved strength Physical Therapy Plan Frequency and Duration Frequency of Treatment 2x/Week Duration of Treatment 8 weeks Plan of Care Start Date 12/08/17 Plan of Care End Date 02/02/18 Therapeutic Interventions Therapeutic Interventions Home Exercise Program Manual Therapy Neuromuscular Re-education Patient/Caregiver Education Self-Care/Home Management Soft Tissue Mobilization Taping Therapeutic Exercises Modalities Hot Packs Ultrasound Next Visit Focus/Plan Next Note Type Treatment Note Next Visit Plan continue to progress exercises for shoulder stabilization as the patient can tolerate
--- NOTE | 2018-01-07 16:46 | PT.OTN ---
Current Diagnoses Pain in left shoulder (01/07/18) Physical Therapy Treatment Note PT-OP-A Visit Information Start: 11/02/17 11:54 Freq: Status: Active Protocol: Document 01/07/18 16:18 [facility] (Rec: 01/07/18 16:46 [facility] [email or web address]) Out-Patient Physical Therapy Visit Information Visit Information Visit Type Treatment Note Visit Start Time 13:45 Visit Stop Time 14:30 Total Visit Minutes 45 Visit Number 12 Number of TRANSPORTATION WORKER Visits 0 Evaluation Information Evaluation Date 10/29/17 PT-OP-B Current Condition Start: 11/02/17 11:54 Freq: Status: Active Protocol: Document 11/02/17 12:12 [facility] (Rec: 11/02/17 12:21 [facility] [email or web address]) Current Condition History of Current Condition Onset Date 3 months ago Current Complaints left sided shoulder pain rated 7/10, frequent falls, urinary incontinence History of Current Condition Batsheva Weber reports she fell 3 months ago landing on her left shoulder. She reports she falls often due to neuropathy in her feet. She has a walker but was not currently using it as she was in her daughters kitchen. She reports having frequent falls and reports she was exercising at the pool but has not been able to continue due to urinary incontinence. Batsheva Weber reports she was recently started on Oxybutrin from her urologist and thinks this may be helping. She has a history of hypertension, type II diabetes, neuropathy bilateral feet, hip and knee replacement Prior Treatments and Tests negative X-ray of the shoulder Treatment Goals Patient/Caregiver Goals The patients goals include decreasing pain and improving shoulder function Prior Functional Status Baseline Function- ADL's Independent Baseline Function- Mobility Modified Independent Current Functional Impairments (Reported) Functional Limitations- ADL's The patient is limited in ADL' s that require lifting or reaching over head Functional Limitations- Mobility/Gait The patient requires a walker for community ambulation due to neuropathy in both feet PT-OP-C Subjective Start: 11/02/17 11:54 Freq: Status: Active Protocol: Document 01/07/18 16:18 [facility] (Rec: 01/07/18 16:46 [facility] [email or web address]) OP-PT Subjective Patient Comments Patient Comments Overall decreased complaints of shoulder pain PT-OP-J Posture/Palpation/Skin Start: 11/02/17 11:54 Freq: Status: Active Protocol: Document 11/02/17 12:12 [facility] (Rec: 06/11/18 12:21 [facility] [email or web address]) Posture Evaluation Position Standing Evaluation View Anterior Head/C-Spine Posture Flexed Forward Head Shoulder Posture (L) Rounded (R) Rounded (L) Forward (R) Forward Palpation Assessment Location One Palpation Location left upper trapezius, lateral deltoid, medial border scapula Palpation Findings Soft Tissue Tightness Muscle Guarding Tenderness PT-OP-K Range of Motion Start: 11/02/17 11:54 Freq: Status: Active Protocol: Document 12/22/17 15:29 [facility] (Rec: 12/22/17 15:43 [facility] [email or web address]) Shoulder Goniometric Range of Motion Shoulder Measured in Degrees Right Shoulder ROM WFL Yes Testing Position Sitting Flexion 110 Left Shoulder ROM WFL No Testing Position Sitting Flexion 110 Abduction 110 External Rotation at 45 degrees 70 Abduction Internal Rotation 75 Internal Rotation Behind Back (text) to mid back PT-OP-M Strength Start: 11/02/17 11:54 Freq: Status: Active Protocol: Document 12/22/17 15:29 [facility] (Rec: 12/22/17 15:43 [facility] [email or web address]) Shoulder Strength Shoulder Manual Muscle Testing Left Flexion 3+ Fair+ Extension 3 Fair Abduction (C5) 3+ Fair+ Adduction 3+ Fair+ External Rotation 3+ Fair+ Internal Rotation 3 Fair Horizontal Abduction 3 Fair Horizontal Adduction 3 Fair PT-OP-Q Treatments Start: 11/02/17 11:54 Freq: Status: Active Protocol: Document 01/07/18 16:18 [facility] (Rec: 01/07/18 16:46 [facility] [email or web address]) Cardio Equipment Recumbent Elliptical ([email or web address]) Duration (Minutes) 5 Resistance level 3 Therapeutic Exercises Supine Exercises 1 Supine Exercise Name AAROM with stick of shoulder flexion and ER in Supine Side bilateral Reps/Minutes 20 reps ea Sitting Exercises 3 Sitting Exercise Name seated shoulder IR and abduction Reps/Minutes 10 reps each 1 Sitting Exercise Name seated shoulder dayanara flexion Side bilateral Standing Exercises 7 Standing Exercise Name standing bicep curls Equipment Used 2# Reps/Minutes 2x 10 reps 6 Standing Exercise Name standing shoulder ER Equipment Used theraband Reps/Minutes 3 x 10 reps 5 Standing Exercise Name standing shoulder abduction with dayanara Comments wand 4 Standing Exercise Name ARMAND calf stretch 2 Standing Exercise Name standing rows and lat pull down Reps/Minutes 2 sets of 10 each 1 Standing Exercise Name standing shoulder extension AAROM Reps/Minutes 20 reps Manual Therapy Treatment Manual Techniques 2 Type manual stretches for the upper trapezius and scalenes bilaterally 1 Type manual ROM of the left shoulder with end range stretch Comments flexion, abduction, IR/ER with end range stretch PT-OP-R Modalities Start: 11/02/17 11:54 Freq: Status: Active Protocol: Document 01/07/18 16:18 [facility] (Rec: 01/07/18 16:46 [facility] [email or web address]) Hot Pack/Cold Pack Treatment Hot Pack Location hot pack to the left shoulder Treatment Duration (minutes) 10 Comments end of treatment with manual ROM PT-OP-T Assessment and Plan Start: 11/02/17 11:54 Freq: Status: Active Protocol: Document 01/07/18 16:18 [facility] (Rec: 01/07/18 16:46 [facility] [email or web address]) Physical Therapy Assessment Assessment Summary Assessment improved form with paz BURNETT and Batsheva is showing improved awareness of her HEP. She is missing her pool exercise program as the pool is closed for 3 weeks Physical Therapy Plan Frequency and Duration Frequency of Treatment 2x/Week Duration of Treatment 8 weeks Plan of Care Start Date 12/08/17 Plan of Care End Date 02/02/18
--- NOTE | 2018-01-12 17:14 | PT.OTN ---
Current Diagnoses Pain in left shoulder (01/12/18) Physical Therapy Treatment Note PT-OP-A Visit Information Start: 11/02/17 11:54 Freq: Status: Active Protocol: Document 01/12/18 17:03 [facility] (Rec: 01/12/18 17:13 [facility] [email or web address]) Out-Patient Physical Therapy Visit Information Visit Information Visit Type Treatment Note Visit Start Time 15:15 Visit Stop Time 16:00 Total Visit Minutes 45 Visit Number 13 Number of ASSOCIATE ENGINEER Visits 0 PT-OP-B Current Condition Start: 11/02/17 11:54 Freq: Status: Active Protocol: Document 11/02/17 12:12 [facility] (Rec: 11/02/17 12:21 [facility] [email or web address]) Current Condition History of Current Condition Onset Date 3 months ago Current Complaints left sided shoulder pain rated 7/10, frequent falls, urinary incontinence History of Current Condition Batsheva Weber reports she fell 3 months ago landing on her left shoulder. She reports she falls often due to neuropathy in her feet. She has a walker but was not currently using it as she was in her daughters kitchen. She reports having frequent falls and reports she was exercising at the pool but has not been able to continue due to urinary incontinence. Batsheva Weber reports she was recently started on Oxybutrin from her urologist and thinks this may be helping. She has a history of hypertension, type II diabetes, neuropathy bilateral feet, hip and knee replacement Prior Treatments and Tests negative X-ray of the shoulder Treatment Goals Patient/Caregiver Goals The patients goals include decreasing pain and improving shoulder function Prior Functional Status Baseline Function- ADL's Independent Baseline Function- Mobility Modified Independent Current Functional Impairments (Reported) Functional Limitations- ADL's The patient is limited in ADL' s that require lifting or reaching over head Functional Limitations- Mobility/Gait The patient requires a walker for community ambulation due to neuropathy in both feet PT-OP-C Subjective Start: 11/02/17 11:54 Freq: Status: Active Protocol: Document 01/12/18 17:03 [facility] (Rec: 01/12/18 17:13 [facility] [email or web address]) OP-PT Subjective Patient Comments Patient Comments Batsheva reports the air quality today is really bothering her and her balance is off PT-OP-J Posture/Palpation/Skin Start: 11/02/17 11:54 Freq: Status: Active Protocol: Document 11/02/17 12:12 [facility] (Rec: 11/02/17 12:21 [facility] [email or web address]) Posture Evaluation Position Standing Evaluation View Anterior Head/C-Spine Posture Flexed Forward Head Shoulder Posture (L) Rounded (R) Rounded (L) Forward (R) Forward Palpation Assessment Location One Palpation Location left upper trapezius, lateral deltoid, medial border scapula Palpation Findings Soft Tissue Tightness Muscle Guarding Tenderness PT-OP-K Range of Motion Start: 11/02/17 11:54 Freq: Status: Active Protocol: Document 12/22/17 15:29 [facility] (Rec: 12/22/17 15:43 [facility] [email or web address]) Shoulder Goniometric Range of Motion Shoulder Measured in Degrees Right Shoulder ROM WFL Yes Testing Position Sitting Flexion 110 Left Shoulder ROM WFL No Testing Position Sitting Flexion 110 Abduction 110 External Rotation at 45 degrees 70 Abduction Internal Rotation 75 Internal Rotation Behind Back (text) to mid back PT-OP-M Strength Start: 11/02/17 11:54 Freq: Status: Active Protocol: Document 12/22/17 15:29 [facility] (Rec: 12/22/17 15:43 [facility] [email or web address]) Shoulder Strength Shoulder Manual Muscle Testing Left Flexion 3+ Fair+ Extension 3 Fair Abduction (C5) 3+ Fair+ Adduction 3+ Fair+ External Rotation 3+ Fair+ Internal Rotation 3 Fair Horizontal Abduction 3 Fair Horizontal Adduction 3 Fair PT-OP-Q Treatments Start: 11/02/17 11:54 Freq: Status: Active Protocol: Document 01/12/18 17:03 [facility] (Rec: 01/12/18 17:13 [facility] [email or web address]) Therapeutic Exercises Sitting Exercises 3 Sitting Exercise Name seated shoulder IR and abduction Reps/Minutes 10 reps each 1 Sitting Exercise Name seated shoulder dayanara flexion Side bilateral Standing Exercises 7 Standing Exercise Name standing bicep curls Equipment Used 2# Reps/Minutes 2x 10 reps 6 Standing Exercise Name standing shoulder ER Equipment Used theraband Reps/Minutes 3 x 10 reps 5 Standing Exercise Name standing shoulder abduction with dayanara 4 Standing Exercise Name ARMAND calf stretch 2 Standing Exercise Name standing rows and lat pull down Reps/Minutes 2 sets of 10 each 1 Standing Exercise Name standing shoulder extension AAROM Reps/Minutes 20 reps PT-OP-R Modalities Start: 11/02/17 11:54 Freq: Status: Active Protocol: Document 01/07/18 16:18 [facility] (Rec: 01/07/18 16:46 [facility] [email or web address]) Hot Pack/Cold Pack Treatment Hot Pack Location hot pack to the left shoulder Treatment Duration (minutes) 10 Comments end of treatment with manual ROM PT-OP-T Assessment and Plan Start: 11/02/17 11:54 Freq: Status: Active Protocol: Document 01/12/18 17:03 [facility] (Rec: 01/12/18 17:13 [facility] [email or web address]) Physical Therapy Assessment Assessment Summary Assessment improved form with paz BURNETT and Batsheva is showing improved awareness of her HEP. She is missing her pool exercise program as the pool is closed for 3 weeks Physical Therapy Plan Frequency and Duration Frequency of Treatment 2x/Week Duration of Treatment 8 weeks Plan of Care Start Date 12/08/17 Plan of Care End Date 02/02/18 Therapeutic Interventions Therapeutic Interventions Home Exercise Program Manual Therapy Neuromuscular Re-education Patient/Caregiver Education Self-Care/Home Management Soft Tissue Mobilization Taping Therapeutic Exercises Modalities Hot Packs Ultrasound Next Visit Focus/Plan Next Note Type Treatment Note Next Visit Plan continue to progress exercises for shoulder stabilization as the patient can tolerate
--- NOTE | 2018-01-14 17:50 | PT.OTN ---
Current Diagnoses Pain in left shoulder (01/14/18) Physical Therapy Treatment Note PT-OP-A Visit Information Start: 11/02/17 11:54 Freq: Status: Active Protocol: Document 01/14/18 17:44 [facility] (Rec: 01/14/18 17:48 [facility] [email or web address]) Out-Patient Physical Therapy Visit Information Visit Information Visit Type Treatment Note Visit Start Time 13:45 Visit Stop Time 14:30 Total Visit Minutes 45 Visit Number 14 Number of SUBMARINE CABLE EQUIPMENT TECHNICIAN Visits 0 PT-OP-B Current Condition Start: 11/02/17 11:54 Freq: Status: Active Protocol: Document 11/02/17 12:12 [facility] (Rec: 11/02/17 12:21 [facility] [email or web address]) Current Condition History of Current Condition Onset Date 3 months ago Current Complaints left sided shoulder pain rated 7/10, frequent falls, urinary incontinence History of Current Condition Batsheva Weber reports she fell 3 months ago landing on her left shoulder. She reports she falls often due to neuropathy in her feet. She has a walker but was not currently using it as she was in her daughters kitchen. She reports having frequent falls and reports she was exercising at the pool but has not been able to continue due to urinary incontinence. Batsheva Weber reports she was recently started on Oxybutrin from her urologist and thinks this may be helping. She has a history of hypertension, type II diabetes, neuropathy bilateral feet, hip and knee replacement Prior Treatments and Tests negative X-ray of the shoulder Treatment Goals Patient/Caregiver Goals The patients goals include decreasing pain and improving shoulder function Prior Functional Status Baseline Function- ADL's Independent Baseline Function- Mobility Modified Independent Current Functional Impairments (Reported) Functional Limitations- ADL's The patient is limited in ADL' s that require lifting or reaching over head Functional Limitations- Mobility/Gait The patient requires a walker for community ambulation due to neuropathy in both feet PT-OP-C Subjective Start: 11/02/17 11:54 Freq: Status: Active Protocol: Document 01/14/18 17:44 [facility] (Rec: 01/14/18 17:48 [facility] [email or web address]) OP-PT Subjective Patient Comments Patient Comments Doing better overall and was able to get back in the pool this past week PT-OP-J Posture/Palpation/Skin Start: 11/02/17 11:54 Freq: Status: Active Protocol: Document 11/02/17 12:12 [facility] (Rec: 11/02/17 12:21 [facility] [email or web address]) Posture Evaluation Position Standing Evaluation View Anterior Head/C-Spine Posture Flexed Forward Head Shoulder Posture (L) Rounded (R) Rounded (L) Forward (R) Forward Palpation Assessment Location One Palpation Location left upper trapezius, lateral deltoid, medial border scapula Palpation Findings Soft Tissue Tightness Muscle Guarding Tenderness PT-OP-K Range of Motion Start: 11/02/17 11:54 Freq: Status: Active Protocol: Document 12/22/17 15:29 [facility] (Rec: 12/22/17 15:43 [facility] [email or web address]) Shoulder Goniometric Range of Motion Shoulder Measured in Degrees Right Shoulder ROM WFL Yes Testing Position Sitting Flexion 110 Left Shoulder ROM WFL No Testing Position Sitting Flexion 110 Abduction 110 External Rotation at 45 degrees 70 Abduction Internal Rotation 75 Internal Rotation Behind Back (text) to mid back PT-OP-M Strength Start: 11/02/17 11:54 Freq: Status: Active Protocol: Document 12/22/17 15:29 [facility] (Rec: 12/22/17 15:43 [facility] [email or web address]) Shoulder Strength Shoulder Manual Muscle Testing Left Flexion 3+ Fair+ Extension 3 Fair Abduction (C5) 3+ Fair+ Adduction 3+ Fair+ External Rotation 3+ Fair+ Internal Rotation 3 Fair Horizontal Abduction 3 Fair Horizontal Adduction 3 Fair PT-OP-Q Treatments Start: 11/02/17 11:54 Freq: Status: Active Protocol: Document 01/14/18 17:44 [facility] (Rec: 01/14/18 17:48 [facility] [email or web address]) Cardio Equipment Recumbent Elliptical ([employer]) Duration (Minutes) 5 Resistance level 3 Therapeutic Exercises Sitting Exercises 3 Sitting Exercise Name seated shoulder IR and abduction Reps/Minutes 10 reps each 2 Sitting Exercise Name seated rows Equipment Used level 1 theraband Reps/Minutes 2 sets of 10 reps 1 Sitting Exercise Name seated shoulder dayanara flexion Side bilateral Standing Exercises 7 Standing Exercise Name standing bicep curls Equipment Used 2# Reps/Minutes 2x 10 reps 6 Standing Exercise Name standing shoulder ER Equipment Used theraband Reps/Minutes 3 x 10 reps 5 Standing Exercise Name standing shoulder abduction with dayanara 4 Standing Exercise Name ARMAND calf stretch 3 Standing Exercise Name standing balance exercises Comments single leg stance, tandem stance, balance board 2 Standing Exercise Name standing rows and lat pull down Reps/Minutes 2 sets of 10 each 1 Standing Exercise Name standing shoulder extension AAROM Reps/Minutes 20 reps Manual Therapy Treatment Manual Techniques 1 Type manual ROM of the left shoulder with end range stretch Comments flexion, abduction, IR/ER with end range stretch PT-OP-R Modalities Start: 11/02/17 11:54 Freq: Status: Active Protocol: Document 01/07/18 16:18 [facility] (Rec: 01/07/18 16:46 [facility] [email or web address]) Hot Pack/Cold Pack Treatment Hot Pack Location hot pack to the left shoulder Treatment Duration (minutes) 10 Comments end of treatment with manual ROM PT-OP-T Assessment and Plan Start: 11/02/17 11:54 Freq: Status: Active Protocol: Document 01/14/18 17:44 [facility] (Rec: 01/14/18 17:48 [facility] [email or web address]) Physical Therapy Assessment Assessment Summary Assessment good increase in both shoulder ROM and strength. Continue for 2 visits to ensure independence in his HEP then DC PT Physical Therapy Plan Frequency and Duration Frequency of Treatment 2x/Week Duration of Treatment 8 weeks Plan of Care Start Date 12/08/17 Plan of Care End Date 02/02/18 Therapeutic Interventions Therapeutic Interventions Home Exercise Program Manual Therapy Neuromuscular Re-education Patient/Caregiver Education Self-Care/Home Management Soft Tissue Mobilization Taping Therapeutic Exercises Modalities Hot Packs Ultrasound Next Visit Focus/Plan Next Note Type Treatment Note Next Visit Plan continue to progress exercises for shoulder stabilization as the patient can tolerate
--- NOTE | 2018-01-19 16:50 | PT.OTN ---
Current Diagnoses Pain in left shoulder (01/19/18) Physical Therapy Treatment Note PT-OP-A Visit Information Start: 11/02/17 11:54 Freq: Status: Active Protocol: Document 01/19/18 16:46 [facility] (Rec: 01/19/18 16:50 [facility] [email or web address]) Out-Patient Physical Therapy Visit Information Visit Information Visit Type Treatment Note Visit Start Time 13:45 Visit Stop Time 14:30 Total Visit Minutes 45 Visit Number 15 Number of CRATE REPAIRER Visits 0 Evaluation Information Evaluation Date 10/29/17 PT-OP-B Current Condition Start: 11/02/17 11:54 Freq: Status: Active Protocol: Document 11/02/17 12:12 [facility] (Rec: 11/02/17 12:21 [facility] [email or web address]) Current Condition History of Current Condition Onset Date 3 months ago Current Complaints left sided shoulder pain rated 7/10, frequent falls, urinary incontinence History of Current Condition Batsheva Weber reports she fell 3 months ago landing on her left shoulder. She reports she falls often due to neuropathy in her feet. She has a walker but was not currently using it as she was in her daughters kitchen. She reports having frequent falls and reports she was exercising at the pool but has not been able to continue due to urinary incontinence. Batsheva Weber reports she was recently started on Oxybutrin from her urologist and thinks this may be helping. She has a history of hypertension, type II diabetes, neuropathy bilateral feet, hip and knee replacement Prior Treatments and Tests negative X-ray of the shoulder Treatment Goals Patient/Caregiver Goals The patients goals include decreasing pain and improving shoulder function Prior Functional Status Baseline Function- ADL's Independent Baseline Function- Mobility Modified Independent Current Functional Impairments (Reported) Functional Limitations- ADL's The patient is limited in ADL' s that require lifting or reaching over head Functional Limitations- Mobility/Gait The patient requires a walker for community ambulation due to neuropathy in both feet PT-OP-C Subjective Start: 11/02/17 11:54 Freq: Status: Active Protocol: Document 01/19/18 16:46 [facility] (Rec: 01/19/18 16:50 [facility] [email or web address]) OP-PT Subjective Patient Comments Patient Comments Overall feeling better and is happy to be back in the pool exercising PT-OP-J Posture/Palpation/Skin Start: 11/02/17 11:54 Freq: Status: Active Protocol: Document 11/02/17 12:12 [facility] (Rec: 11/02/17 12:21 [facility] [email or web address]) Posture Evaluation Position Standing Evaluation View Anterior Head/C-Spine Posture Flexed Forward Head Shoulder Posture (L) Rounded (R) Rounded (L) Forward (R) Forward Palpation Assessment Location One Palpation Location left upper trapezius, lateral deltoid, medial border scapula Palpation Findings Soft Tissue Tightness Muscle Guarding Tenderness PT-OP-K Range of Motion Start: 11/02/17 11:54 Freq: Status: Active Protocol: Document 12/22/17 15:29 [facility] (Rec: 12/22/17 15:43 [facility] [email or web address]) Shoulder Goniometric Range of Motion Shoulder Measured in Degrees Right Shoulder ROM WFL Yes Testing Position Sitting Flexion 110 Left Shoulder ROM WFL No Testing Position Sitting Flexion 110 Abduction 110 External Rotation at 45 degrees 70 Abduction Internal Rotation 75 Internal Rotation Behind Back (text) to mid back PT-OP-M Strength Start: 11/02/17 11:54 Freq: Status: Active Protocol: Document 12/22/17 15:29 [facility] (Rec: 12/22/17 15:43 [facility] [email or web address]) Shoulder Strength Shoulder Manual Muscle Testing Left Flexion 3+ Fair+ Extension 3 Fair Abduction (C5) 3+ Fair+ Adduction 3+ Fair+ External Rotation 3+ Fair+ Internal Rotation 3 Fair Horizontal Abduction 3 Fair Horizontal Adduction 3 Fair PT-OP-Q Treatments Start: 11/02/17 11:54 Freq: Status: Active Protocol: Document 01/19/18 16:46 [facility] (Rec: 01/19/18 16:50 [facility] [email or web address]) Therapeutic Exercises Sitting Exercises 3 Sitting Exercise Name seated shoulder IR and abduction Reps/Minutes 10 reps each 1 Sitting Exercise Name seated shoulder dayanara flexion Side bilateral Standing Exercises 7 Standing Exercise Name standing bicep curls Equipment Used 2# Reps/Minutes 2x 10 reps 6 Standing Exercise Name standing shoulder ER Equipment Used theraband Reps/Minutes 3 x 10 reps 5 Standing Exercise Name standing shoulder abduction with dayanara 4 Standing Exercise Name ARMAND calf stretch 3 Standing Exercise Name standing balance exercises Comments single leg stance, tandem stance, balance board 2 Standing Exercise Name standing rows and lat pull down Reps/Minutes 2 sets of 10 each 1 Standing Exercise Name standing shoulder extension AAROM Reps/Minutes 20 reps Manual Therapy Treatment Soft Tissue Mobilization 1 Body Location seated STM to the left lateral neck and upper trapezius Body Position seated Manual Techniques 2 Type manual stretches for the upper trapezius and scalenes bilaterally 1 Type manual ROM of the left shoulder with end range stretch Comments flexion, abduction, IR/ER with end range stretch PT-OP-R Modalities Start: 11/02/17 11:54 Freq: Status: Active Protocol: Document 01/07/18 16:18 [facility] (Rec: 01/07/18 16:46 [facility] [email or web address]) Hot Pack/Cold Pack Treatment Hot Pack Location hot pack to the left shoulder Treatment Duration (minutes) 10 Comments end of treatment with manual ROM PT-OP-T Assessment and Plan Start: 11/02/17 11:54 Freq: Status: Active Protocol: Document 01/19/18 16:46 [facility] (Rec: 01/19/18 16:50 [facility] [email or web address]) Physical Therapy Assessment Assessment Summary Assessment Batsheva is showing good awareness with all exercises except her shoulder ER. This one needs to be reviewed again next visit. She has one visit left prior to DC Physical Therapy Plan Frequency and Duration Frequency of Treatment 2x/Week Duration of Treatment 8 weeks Plan of Care Start Date 12/08/17 Plan of Care End Date 02/02/18 Therapeutic Interventions Therapeutic Interventions Home Exercise Program Manual Therapy Neuromuscular Re-education Patient/Caregiver Education Self-Care/Home Management Soft Tissue Mobilization Taping Therapeutic Exercises Modalities Hot Packs Ultrasound Next Visit Focus/Plan Next Note Type Treatment Note Next Visit Plan continue to progress exercises for shoulder stabilization as the patient can tolerate
--- NOTE | 2018-01-28 16:58 | PT.OTN ---
Current Diagnoses Pain in left shoulder (01/28/18) Physical Therapy Treatment Note PT-OP-A Visit Information Start: 11/02/17 11:54 Freq: Status: Active Protocol: Document 01/28/18 16:52 [facility] (Rec: 01/28/18 16:58 [facility] [email or web address]) Out-Patient Physical Therapy Visit Information Visit Information Visit Type Treatment Note Visit Start Time 16:00 Visit Stop Time 16:45 Total Visit Minutes 45 Visit Number 16 Number of SYSTEM DEVELOPER ASSOCIATE MANAGER Visits 0 PT-OP-B Current Condition Start: 11/02/17 11:54 Freq: Status: Active Protocol: Document 11/02/17 12:12 [facility] (Rec: 11/02/17 12:21 [facility] [email or web address]) Current Condition History of Current Condition Onset Date 3 months ago Current Complaints left sided shoulder pain rated 7/10, frequent falls, urinary incontinence History of Current Condition Batsheva Weber reports she fell 3 months ago landing on her left shoulder. She reports she falls often due to neuropathy in her feet. She has a walker but was not currently using it as she was in her daughters kitchen. She reports having frequent falls and reports she was exercising at the pool but has not been able to continue due to urinary incontinence. Batsheva Weber reports she was recently started on Oxybutrin from her urologist and thinks this may be helping. She has a history of hypertension, type II diabetes, neuropathy bilateral feet, hip and knee replacement Prior Treatments and Tests negative X-ray of the shoulder Treatment Goals Patient/Caregiver Goals The patients goals include decreasing pain and improving shoulder function Prior Functional Status Baseline Function- ADL's Independent Baseline Function- Mobility Modified Independent Current Functional Impairments (Reported) Functional Limitations- ADL's The patient is limited in ADL' s that require lifting or reaching over head Functional Limitations- Mobility/Gait The patient requires a walker for community ambulation due to neuropathy in both feet PT-OP-C Subjective Start: 11/02/17 11:54 Freq: Status: Active Protocol: Document 01/28/18 16:52 [facility] (Rec: 01/28/18 16:58 [facility] [email or web address]) OP-PT Subjective Patient Comments Patient Comments Batsheva reports overall she is feeling much improvement with her shoulder. Her pain is decreased and she has improved shoulder mobility. She feels good about discharging today. PT-OP-J Posture/Palpation/Skin Start: 11/02/17 11:54 Freq: Status: Active Protocol: Document 11/02/17 12:12 [facility] (Rec: 11/02/17 12:21 [facility] [email or web address]) Posture Evaluation Position Standing Evaluation View Anterior Head/C-Spine Posture Flexed Forward Head Shoulder Posture (L) Rounded (R) Rounded (L) Forward (R) Forward Palpation Assessment Location One Palpation Location left upper trapezius, lateral deltoid, medial border scapula Palpation Findings Soft Tissue Tightness Muscle Guarding Tenderness PT-OP-K Range of Motion Start: 11/02/17 11:54 Freq: Status: Active Protocol: Document 01/28/18 16:52 [facility] (Rec: 01/28/18 16:58 [facility] [email or web address]) Shoulder Goniometric Range of Motion Shoulder Measured in Degrees Right Shoulder ROM WFL Yes Left Shoulder ROM WFL Yes PT-OP-M Strength Start: 11/02/17 11:54 Freq: Status: Active Protocol: Document 12/22/17 15:29 [facility] (Rec: 12/22/17 15:43 [facility] [email or web address]) Shoulder Strength Shoulder Manual Muscle Testing Left Flexion 3+ Fair+ Extension 3 Fair Abduction (C5) 3+ Fair+ Adduction 3+ Fair+ External Rotation 3+ Fair+ Internal Rotation 3 Fair Horizontal Abduction 3 Fair Horizontal Adduction 3 Fair PT-OP-Q Treatments Start: 11/02/17 11:54 Freq: Status: Active Protocol: Document 01/19/18 16:46 [facility] (Rec: 01/19/18 16:50 [facility] [email or web address]) Therapeutic Exercises Sitting Exercises 3 Sitting Exercise Name seated shoulder IR and abduction Reps/Minutes 10 reps each 1 Sitting Exercise Name seated shoulder dayanara flexion Side bilateral Standing Exercises 7 Standing Exercise Name standing bicep curls Equipment Used 2# Reps/Minutes 2x 10 reps 6 Standing Exercise Name standing shoulder ER Equipment Used theraband Reps/Minutes 3 x 10 reps 5 Standing Exercise Name standing shoulder abduction with dayanara 4 Standing Exercise Name ARMAND calf stretch 3 Standing Exercise Name standing balance exercises Comments single leg stance, tandem stance, balance board 2 Standing Exercise Name standing rows and lat pull down Reps/Minutes 2 sets of 10 each 1 Standing Exercise Name standing shoulder extension AAROM Reps/Minutes 20 reps Manual Therapy Treatment Soft Tissue Mobilization 1 Body Location seated STM to the left lateral neck and upper trapezius Body Position seated Manual Techniques 2 Type manual stretches for the upper trapezius and scalenes bilaterally 1 Type manual ROM of the left shoulder with end range stretch Comments flexion, abduction, IR/ER with end range stretch PT-OP-R Modalities Start: 11/02/17 11:54 Freq: Status: Active Protocol: Document 01/07/18 16:18 [facility] (Rec: 01/07/18 16:46 [facility] [email or web address]) Hot Pack/Cold Pack Treatment Hot Pack Location hot pack to the left shoulder Treatment Duration (minutes) 10 Comments end of treatment with manual ROM PT-OP-T Assessment and Plan Start: 11/02/17 11:54 Freq: Status: Active Protocol: Document 01/28/18 16:52 [facility] (Rec: 01/28/18 16:58 [facility] [email or web address]) Physical Therapy Assessment Progress Towards Goals Progress Towards Goals Goals Met Assessment Summary Assessment Batsheva has made great overall progress with physical therapy . At this point all her goals have been met and she is independent with a home program. Physical Therapy Plan Discharge Physical Therapy Discharge Reasons Goals Met
== END 2018-05-31 16:03 ==
LOC: PHYS 16:00
PROVIDERS: Family Provider Family Medicine; PCP Family Medicine; Visit Provider Family Medicine
DX: M25.512 Pain in left shoulder (principal)
CPT/HCPCS: 97010; 97110; 97140; 97161

== ENCOUNTER → 2018-03-09 12:21 | Outpatient (CLI) | payer OTHER, SELFPAY ==
[2018-03-09 14:53] LABS: BUN Creatinine Ratio 37.8 (6-22); Blood Urea Nitrogen 34 mg/dL (7-17); Calcium 9.6 mg/dL (8.4-10.2); Carbon Dioxide 29 mmol/L (22-32); Chloride 103 mmol/L (98-107); Estimated Glomerular Filt Rate > 60.0 mL/min (>60); Glucose 162 mg/dL (80-110); HEMOLYSIS < 15 (0-50); Potassium 3.9 mmol/L (3.4-5.1); Sodium 143 mmol/L (137-145)
[2018-03-09 16:51] LABS: Hemoglobin A1C% w Est Avg Glu 8.1 % (4.0-6.0)
== END ==
PROVIDERS: PCP Family Medicine; Visit Provider Family Medicine
DX: E11.9 Type 2 diabetes mellitus without complications (principal)
CPT/HCPCS: 36415; 80048; 83036

== ENCOUNTER → 2018-07-01 09:30 | Outpatient (CLI) | payer OTHER, SELFPAY ==
[2018-07-01 13:41] LABS: Hemoglobin A1C% w Est Avg Glu 8.1 % (4.0-6.0)
== END ==
PROVIDERS: PCP Family Medicine; Visit Provider Family Medicine
DX: E11.9 Type 2 diabetes mellitus without complications (principal)
CPT/HCPCS: 36415; 83036

== ENCOUNTER → 2018-08-17 14:49 | Outpatient (CLI) | payer OTHER, SELFPAY ==
[2018-08-17 15:12] LABS: Hematocrit 43.4 % (36-46); Hemoglobin 14.8 g/dL (12.0-16.0); Mean Corpuscular HGB Conc 34.1 % (30-36); Mean Corpuscular Hemoglobin 29.1 PG (26-34); Mean Corpuscular Volume 85.4 fL (80-100); Platelet Count 212 X10^3/uL (150-400); Red Blood Cell Count 5.08 X10^6/uL (4.0-5.2); Red Cell Distribution Width 14.2 % (11.6-14.8); White Blood Cell Count 7.9 X10^3/uL (4.5-11.0)
[2018-08-17 16:27] LABS: Alanine Aminotransferase 33 IU/L (9-52); Albumin 4.1 g/dL (3.5-5.0); Albumin Globulin Ratio 1.4 (1.0-2.8); Alkaline Phosphatase 177 U/L (38-126); Aspartate Aminotransferase 32 IU/L (14-36); Bilirubin Total 0.4 mg/dL (0.2-1.3); Bilirubin Unconjugated 0.3 mg/dL (0.0-1.1); Globulin 2.9 g/dL (1.7-4.1); HEMOLYSIS < 15 (0-50)
== END ==
PROVIDERS: PCP Family Medicine; Visit Provider Podiatrist
DX: B35.1 Tinea unguium (principal)
CPT/HCPCS: 36415; 80076; 85027

== ENCOUNTER 2018-08-20 16:03 | Emergency (ER) | payer OTHER, SELFPAY ==
--- NOTE | 2018-08-20 | DI.RAD.S_ITS ---
PROCEDURE: XR HIP W PEL IF DONE RT 2V INDICATIONS: Right HIP PAIN AFTER FALL TECHNIQUE: AP pelvis and lateral view of the right hip acquired. COMPARISON: [facility], , HIP 2V RIGHT, 07/31/2010, 8:12. FINDINGS: Bones: Patient is status post previous right total hip arthroplasty, with hardware components in expected positions. The hip joint appears congruent. No gross hardware loosening or failure is seen. Moderate left hip joint osteoarthritis is noted. The visualized bony structures appear intact. Soft tissues: No suspicious soft tissue densities. IMPRESSION: Prior right total hip arthroplasty with anatomic right hip alignment. No acute fracture or dislocation. No gross hardware complication. Dictated by: Carlos Hartley M.D. on 08/20/2018 at 17:27 Approved by: Carlos Hartley M.D. on 08/20/2018 at 17:28
[2018-08-20 16:14] VITALS: BP 175/81; PULSE 80; RESP 17; TEMP 37.2; O2SAT 95; BMI 28.3
--- NOTE | 2018-08-20 16:31 | DI.RAD.S_ITS ---
PROCEDURE: XR RIBS RT MIN 3V W CXR 1V INDICATIONS: fall w/ multiple complaints. TECHNIQUE: 2 views of the right ribs were acquired, along with a single view chest. COMPARISON: None. FINDINGS: Surgical changes and devices: None. Bones and chest wall: No fractures or dislocations. No suspicious bony lesions. Overlying soft tissues appear unremarkable. Lungs and pleura: No pleural effusions or pneumothorax. Lungs appear clear. Mediastinum: Mediastinal contours appear normal. Aortic arch ossification is seen. Heart size is enlarged. IMPRESSION: No definite displaced rib fracture. No acute cardiopulmonary pathology. Dictated by: Carlos Hartley M.D. on 08/20/2018 at 17:21 Approved by: Carlos Hartley M.D. on 08/20/2018 at 17:26
--- NOTE | 2018-08-20 16:31 | DI.CT.S_ITS ---
PROCEDURE: CT HEAD/BRAIN WO CON INDICATIONS: fall w/ multiple complaints. TECHNIQUE: Noncontrast 4.5 mm thick angled axial sections acquired from the foramen magnum to the vertex, with coronal and sagittal reformats. For radiation dose reduction, the following was used: automated exposure control, adjustment of mA and/or kV according to patient size. COMPARISON: [facility], CT, HEAD WITHOUT CONTRAST, 07/01/2017, 16:03. FINDINGS: Image quality: Excellent. CSF spaces: Basal cisterns are patent. No extra-axial fluid collections. Ventricles are normal in size and shape. Brain: No midline shift. No intracranial masses or hemorrhage. Hansen-white matter interface is normal. There is diffuse cerebral volume loss. There is moderate periventricular and subcortical white matter hypoattenuation, compatible with chronic microvascular ischemic changes. There is calcified plaque of the intracranial vasculature. There is a 4 mm hypoattenuating focus within the right caudate nucleus on axial image 16 of series 2, which is new from comparison exam of 07/01/17. Skull and face: Calvarium and visualized facial bones are intact, without suspicious lesions. Sinuses: Visualized sinuses and mastoids are clear. IMPRESSION: 1. 4 mm hypoattenuating focus within the right caudate nucleus, which is new from comparison exam of 07/01/17. This may represent an age-indeterminate lacunar infarct versus dilated perivascular space. Clinical correlation recommended. 2. No acute intracranial hemorrhage. Findings discussed with referring provider Dr. Belen Anton at 5:20 PM on 08/20/[address] Schafer. Dictated by: Ace Schafer M.D. on 08/20/2018 at 17:00 Approved by: Ace Schafer M.D. on 08/20/2018 at 17:32
--- NOTE | 2018-08-20 16:31 | DI.RAD.S_ITS ---
PROCEDURE: XR KNEE LT 3V INDICATIONS: fall w/ multiple complaints. TECHNIQUE: 3 views of the knee were acquired. COMPARISON: [facility], CR, KNEE 3V RIGHT, 08/12/2015, 18:21. FINDINGS: Bones: Patient is status post prior left total knee arthroplasty. Alignment of left knee is anatomic. No fractures or dislocations. No gross hardware loosening or failure. No significant patellar subluxation. No suspicious bony lesions. Soft tissues: No joint effusion. No suspicious soft tissue calcifications. IMPRESSION: No acute left knee fracture or dislocation. No gross hardware complication. Dictated by: Carlos Hartley M.D. on 08/20/2018 at 17:28 Approved by: Carlos Hartley M.D. on 08/20/2018 at 17:30
--- NOTE | 2018-08-20 16:31 | DI.RAD.S_ITS ---
PROCEDURE: XR WRIST LT MIN 3V INDICATIONS: fall w/ multiple complaints. TECHNIQUE: 3 views of the wrist were acquired. COMPARISON: [facility], , WRIST MINIMUM 3 VIEWS LEFT, 08/12/2015, 18:17. FINDINGS: Bones: No fractures or dislocations. No suspicious bony lesions. Moderate to severe osteophytic changes along radial aspect of left wrist is seen more prominent at first CMC joint and scaphotrapezial joint. Scaphoid view: Scaphoid is grossly intact. Soft tissues: No suspicious soft tissue calcifications. IMPRESSION: No gross acute left wrist fracture or dislocation. 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 Dictated by: Carlos Hartley M.D. on 08/20/2018 at 17:14 Approved by: Carlos Hartley M.D. on 08/20/2018 at 17:16
--- NOTE | 2018-08-20 16:31 | DI.CT.S_ITS ---
PROCEDURE: CT CERVICAL SPINE WO CON INDICATIONS: fall w/ multiple complaints. TECHNIQUE: Noncontrast 3 mm thick sections acquired from the skull base to the T4 level. Sagittal and coronal reformats were then constructed. For radiation dose reduction, the following was used: automated exposure control, adjustment of mA and/or kV according to patient size. COMPARISON: [facility], CT, C-SPINE WITHOUT CONTRAST, 07/01/2017, 16:03. FINDINGS: Image quality: Excellent. Bones: No fractures or acute dislocations. Visualized superior ribs are intact. There is severe multilevel degenerative changes of the cervical spine with similar multilevel trace anterolisthesis. There is an inferior endplate Schmorl's node of the T1 vertebral body. There is chronic fusion of the posterior elements of C7 and T1. Soft tissues: Prevertebral soft tissues are normal in thickness. No paravertebral hematomas. No apical pneumothoraces. IMPRESSION: No acute cervical spine fracture. Severe multilevel degenerative changes of the cervical spine as described above. Findings discussed with the referring provider Dr. Belen Anton at 5:20 PM on 08/20/[address] Schafer. Dictated by: Ace Schafer M.D. on 08/20/2018 at 17:32 Approved by: Ace Schafer M.D. on 08/20/2018 at 17:40
--- NOTE | 2018-08-20 18:00 | PC.NURSE ---
c-spine cleared by Dr. Anton, c-collar removed.
[2018-08-20 19:04] VITALS: BP 163/86; PULSE 89; RESP 17; O2SAT 100
--- NOTE | 2018-08-20 19:08 | PC.NURSE ---
Pt very upset at wait. upset that patient was told it would be 15-20 min and it has been 30 min. Explained that a patient became high acuity needing emergent MD intervention which she verbalized understanding. Still wanted to leave. I explained that there were findings on the CT that the doctor wanted to speak w/ her about. Dr. Pompa came in during this conversation to complete eval and patient agreed to stay.
--- NOTE | 2018-09-03 15:58 | ED.FALL ---
HPI - Fall General Chief Complaint: Fall Stated Complaint: FALL HARD TIME BREATHING LT RIBS HURT LEG KNEE Time Seen by Provider: 08/20/18 17:15 Source: patient and family Mode of arrival: wheelchair Limitations: no limitations History of Present Illness HPI Narrative: 77F former smoker with history of HTN, she tripped and fell, striking her head on the ground. She denies loss of consciousness nor nausea or vomiting. She does take a baby aspirin. She denies any current neck pain. The primary complaints are of right-sided ribs and left knee. Her ribs hurt worse with motion and improve with rest. She denies cough, or hemoptysis. She has L knee pain, worse with motion and improved with rest. She tripped on the sidewalk. She denies dizziness, weakness, or chest pain. Related Data Home Medications Medication Instructions Recorded Confirmed Disabled Parking Permit 1 ea MISCELLANEOUS DIRECTED 08/20/18 08/20/18 Lantus U-100 Insulin 40 unit SUBCUT DAILY 08/20/18 08/20/18 [place] 1 ea TOPICAL DIRECTED 08/20/18 08/20/18 Syringes: 1cc Insulin Syringes 1 syr SQ QDAY 08/20/18 08/20/18 with [place] losartan 50 mg PO DAILY 08/20/18 08/20/18 simvastatin [Zocor] 40 mg PO BEDTIME 08/20/18 08/20/18 Previous Rx's Medication Instructions Recorded Prevalite 4 gm PO QDAY #14 packet 07/04/16 oxybutynin chloride ER 5 mg 5 mg PO DAILY #90 tab 12/14/17 tablet,extended release 24 hr furosemide 40 mg tablet 40 mg PO BID #180 tab 02/08/18 levothyroxine 100 mcg tablet 100 mcg PO QAM #90 tab 04/19/18 potassium chloride ER 20 mEq 20 meq PO BID #180 tab 04/20/18 tablet,extended release carvedilol [Coreg] 6.25 mg PO BID #180 tab 07/19/18 Allergies Allergy/AdvReac Type Severity Reaction Status Date / Time Anesthetics - Amide Type Allergy Unknown Verified 07/06/18 13:43 [ANESTHETICS - AMIDE TYPE] codeine [CODEINE] Allergy Unknown Verified 07/06/18 13:43 lidocaine [From XYLOCAINE] Allergy Unknown WHEN HAD Verified 07/06/18 13:43 TEETH WORKED ON lisinopril [LISINOPRIL] Allergy Unknown Verified 07/06/18 13:43 milk [MILK] Allergy Unknown Verified 07/06/18 13:43 morphine [MORPHINE] Allergy Unknown Verified 07/06/18 13:43 oxycodone [OXYCODONE] Allergy Unknown Verified 07/06/18 13:43 Penicillins [PENICILLINS] Allergy Unknown Verified 07/06/18 13:43 Review of Systems Constitutional Denies chills, Denies fever(s), Denies lethargy and Denies weakness Eyes Denies change in vision, Denies eye discharge, Denies irritation and Denies loss of vision ENT Ears, Nose, Mouth, and Throat: Denies change in voice, Denies neck pain and Denies sore throat Cardiovascular Denies chest pain, Denies irregular heart rhythm, Denies lightheadedness, Denies palpitations, Denies dyspnea, Denies dyspnea on exertion and Denies orthopnea Respiratory Denies cough, Denies dyspnea, Denies dyspnea on exertion and Denies wheezing Gastrointestinal Gastrointestinal: Denies abdominal pain, Denies change in bowel habits, Denies diarrhea, Denies nausea and Denies vomiting Genitourinary Denies hematuria, Denies flank pain, Denies urinary incontinence and Denies urinary urgency Musculoskeletal Reports limited range of motion and Denies neck pain Integumentary/Breasts Denies pruritus, Denies erythema, Denies rash and Denies wounds Neurologic Denies confusion, Denies loss of vision and Denies weakness Psychiatric Denies anxiety, Denies confusion, Denies depression, Denies homicidal ideation and Denies suicidal ideation Endocrine Denies palpitations Hematologic/Lymphatic Denies easy bruising Allergic/Immunologic Denies wheezing Exam Narrative Exam Narrative: GENERAL: Pleasant 77F in no obvious severe distress. GCS 15 HEAD: Mild contusion frontal, no depressed skull fracture. EYES: Pupils equal round and reactive. Extraocular motions intact. No scleral icterus. No injection or drainage. ENT: Nose without bleeding, purulent drainage or septal hematoma. Throat without erythema, tonsillar hypertrophy or exudate. Uvula midline. Airway patent. NECK: Trachea midline. No JVD or lymphadenopathy. Supple, nontender, no meningeal signs. CARDIOVASCULAR: Regular rate and rhythm without murmurs, gallops, or rubs. R sided lateral ribs are tender to palpation RESPIRATORY: Clear to auscultation. Breath sounds equal bilaterally. No wheezes, rales, or rhonchi. GASTROINTESTINAL: Abdomen soft, non-tender, nondistended. No hepato-splenomegaly, or palpable masses. No guarding. EXTREMITIES: No clubbing, cyanosis, or edema. Mild L knee tenderness to palp. No effusion, crepitance. TTP of R hip. No shortening or external rotation. Pain to palp of R distal radius. No deformity. No anatomic snuff box pain. No pain with axial load BACK: Nontender without deformity or crepitance. No flank tenderness. NEURO: AOx3. SKIN: No rash or erythema. Initial Vital Signs Initial Vital Signs: Vital Signs Temperature 99.0 F 08/20/18 16:14 Pulse Rate 80 08/20/18 16:14 Respiratory Rate 17 08/20/18 16:14 Blood Pressure 175/81 H 08/20/18 16:14 Pulse Oximetry 95 08/20/18 16:14 [facility] Medical History Essential hypertension (Chronic 09/20/10) Systolic congestive heart failure (Chronic 09/20/10) Controlled type 2 diabetes mellitus (Chronic 09/20/10) Atrial fibrillation (Chronic 09/20/10) Renal artery stenosis (Chronic 09/20/10) Chronic diarrhea (Chronic 06/10/16) Bipolar disorder (Chronic) Cardiomyopathy (Chronic) History of Graves' disease (Chronic) Neuropathy of both feet (Chronic) Retinal scar (Chronic) Rheumatoid arthritis (Chronic) Thyroid nodule (Chronic) Vision disorder (Chronic) Chicken pox (Resolved) History of placenta previa (Resolved) Stroke (Resolved) Surgical History History of partial surgical removal of colon (Resolved 06/10/16) Anesthesia (Resolved) History of hip replacement (Resolved) History of knee replacement (Resolved) Status post dilation and curettage Social History Smoking Status: Former smoker Social History Smoking Status: Former smoker MDM - Fall Imaging Data CT scan - head: Radiologist's impression: [address] [address] [address] Scan Report Signed Patient: Batsheva Burgess [facility]#: [id number] : 9Acct:[id number] Age/Sex: 77 / FDate of Service: 08/20/18 Loc: ED Accession Number: [id number] Procedure: CT head/brain wo con Ordering Provider: Belen Anton D.O. PROCEDURE: CT HEAD/BRAIN WO CON INDICATIONS: fall w/ multiple complaints. TECHNIQUE: Noncontrast 4.5 mm thick angled axial sections acquired from the foramen magnum to the vertex, with coronal and sagittal reformats. For radiation dose reduction, the following was used: automated exposure control, adjustment of mA and/or kV according to patient size. COMPARISON: [facility], CT, HEAD WITHOUT CONTRAST, 07/01/2017, 16:03. FINDINGS: Image quality: Excellent. CSF spaces: Basal cisterns are patent. No extra-axial fluid collections. Ventricles are normal in size and shape. Brain: No midline shift. No intracranial masses or hemorrhage. Hansen-white matter interface is normal. There is diffuse cerebral volume loss. There is moderate periventricular and subcortical white matter hypoattenuation, compatible with chronic microvascular ischemic changes. There is calcified plaque of the intracranial vasculature. There is a 4 mm hypoattenuating focus within the right caudate nucleus on axial image 16 of series 2, which is new from comparison exam of 07/01/17. Skull and face: Calvarium and visualized facial bones are intact, without suspicious lesions. Sinuses: Visualized sinuses and mastoids are clear. IMPRESSION: 1. 4 mm hypoattenuating focus within the right caudate nucleus, which is new from comparison exam of 07/01/17. This may represent an age-indeterminate lacunar infarct versus dilated perivascular space. Clinical correlation recommended. 2. No acute intracranial hemorrhage. Findings discussed with referring provider Dr. Belen Anton at 5:20 PM on 08/20/[address] Schafer. Dictated by: Ace Schafer M.D. on 08/20/2018 at 17:00 Approved by: Ace Schafer M.D. on 08/20/2018 at 17:32 [place] [address] CT Scan Report Signed Patient: Batsheva Burgess [facility]#: [id number] : 9Acct:[id number] Age/Sex: 77 / FDate of Service: 08/20/18 Loc: ED Accession Number: [id number] Procedure: CT cervical spine wo con Ordering Provider: Belen Anton D.O. PROCEDURE: CT CERVICAL SPINE WO CON INDICATIONS: fall w/ multiple complaints. TECHNIQUE: Noncontrast 3 mm thick sections acquired from the skull base to the T4 level. Sagittal and coronal reformats were then constructed. For radiation dose reduction, the following was used: automated exposure control, adjustment of mA and/or kV according to patient size. COMPARISON: [facility], CT, C-SPINE WITHOUT CONTRAST, 07/01/2017, 16:03. FINDINGS: Image quality: Excellent. Bones: No fractures or acute dislocations. Visualized superior ribs are intact. There is severe multilevel degenerative changes of the cervical spine with similar multilevel trace anterolisthesis. There is an inferior endplate Schmorl's node of the T1 vertebral body. There is chronic fusion of the posterior elements of C7 and T1. Soft tissues: Prevertebral soft tissues are normal in thickness. No paravertebral hematomas. No apical pneumothoraces. IMPRESSION: No acute cervical spine fracture. Severe multilevel degenerative changes of the cervical spine as described above. Findings discussed with the referring provider Dr. Belen Anton at 5:20 PM on 08/20/[address] Schafer. Dictated by: Ace Schafer M.D. on 08/20/2018 at 17:32 Approved by: Ace Schafer M.D. on 08/20/2018 at 17:40 [place] [address] XRay Report Signed Patient: Batsheva Burgess [facility]#: [id number] : 9Acct:[id number] Age/Sex: 77 / FDate of Service: 08/20/18 Loc: ED Accession Number: [id number] Procedure: XR ribs RT min 3V w CXR1V Ordering Provider: Belen Anton D.O. PROCEDURE: XR RIBS RT MIN 3V W CXR 1V INDICATIONS: fall w/ multiple complaints. TECHNIQUE: 2 views of the right ribs were acquired, along with a single view chest. COMPARISON: None. FINDINGS: Surgical changes and devices: None. Bones and chest wall: No fractures or dislocations. No suspicious bony lesions. Overlying soft tissues appear unremarkable. Lungs and pleura: No pleural effusions or pneumothorax. Lungs appear clear. Mediastinum: Mediastinal contours appear normal. Aortic arch ossification is seen. Heart size is enlarged. IMPRESSION: No definite displaced rib fracture. No acute cardiopulmonary pathology. Dictated by: Carlos Hartley M.D. on 08/20/2018 at 17:21 Approved by: Carlos Hartley M.D. on 08/20/2018 at 17:[address] [address] XRay Report Signed Patient: Batsheva Burgess [facility]#: [id number] : 9Acct:[id number] Age/Sex: 77 / FDate of Service: 08/20/18 Loc: ED Accession Number: [id number] Procedure: XR wrist LT min 3V Ordering Provider: Belen Anton D.O. PROCEDURE: XR WRIST LT MIN 3V INDICATIONS: fall w/ multiple complaints. TECHNIQUE: 3 views of the wrist were acquired. COMPARISON: [facility], , WRIST MINIMUM 3 VIEWS LEFT, 08/12/2015, 18:17. FINDINGS: Bones: No fractures or dislocations. No suspicious bony lesions. Moderate to severe osteophytic changes along radial aspect of left wrist is seen more prominent at first CMC joint and scaphotrapezial joint. Scaphoid view: Scaphoid is grossly intact. Soft tissues: No suspicious soft tissue calcifications. IMPRESSION: No gross acute left wrist fracture or dislocation. 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 Dictated by: Carlos Hartley M.D. on 08/20/2018 at 17:[address] [address] XRay Report Signed Patient: Batsheva Burgess [facility]#: [id number] : 9Acct:[id number] Age/Sex: 77 / FDate of Service: 08/20/18 Loc: ED Accession Number: [id number] Procedure: XR hip w pel if done RT 2V Ordering Provider: Belen Anton D.O. PROCEDURE: XR HIP W PEL IF DONE RT 2V INDICATIONS: Right HIP PAIN AFTER FALL TECHNIQUE: AP pelvis and lateral view of the right hip acquired. COMPARISON: [facility], , HIP 2V RIGHT, 07/31/2010, 8:12. FINDINGS: Bones: Patient is status post previous right total hip arthroplasty, with hardware components in expected positions. The hip joint appears congruent. No gross hardware loosening or failure is seen. Moderate left hip joint osteoarthritis is noted. The visualized bony structures appear intact. Soft tissues: No suspicious soft tissue densities. IMPRESSION: Prior right total hip arthroplasty with anatomic right hip alignment. No acute fracture or dislocation. No gross hardware complication. Dictated by: Carlos Hartley M.D. on 08/20/2018 at 17:27 Approved by: Carlos Hartley M.D. on 08/20/2018 at 17:28 Discharge Plan Departure Patient Disposition: Home Clinical Impression: Contusion of rib on right side Qualifiers: Encounter type: initial encounter Qualified Code(s): S20.211A - Contusion of right front wall of thorax, initial encounter Contusion of right wrist Qualifiers: Encounter type: initial encounter Qualified Code(s): S60.211A - Contusion of right wrist, initial encounter Discharge Date/Time: 08/20/18 19:38 Interventions: ED Discharge Assessment Last Done: 08/20/18 19:37 Instructions: DI for Contusion Activity Restrictions/Additional Instructions: *You have been diagnosed with [ mechanicalfall with multiple contusions ] *What to do: *Take medications as directed *Follow up with your primary care provider in 2-3 days, call for an appointment. Let them know you were seen in the Emergency Department and that we ask that you be seen in follow up *Return to ER if you should have any new, worsening or concerning symptoms, such as [increasing pain, shortness of breath, or other bothersome symptoms ] Prescriptions: No Action Prevalite 4 GM powder in packet 4 gm PO QDAY Qty: 14 RF: 0 oxybutynin chloride 5 mg tablet extended release 24hr 5 mg PO DAILY Qty: 90 RF: 1 furosemide 40 mg tablet 40 mg PO BID Qty: 180 RF: 3 levothyroxine 100 mcg tablet 100 mcg PO QAM Qty: 90 RF: 2 potassium chloride [K-Tab] 20 mEq tablet extended release 20 meq PO BID Qty: 180 RF: 3 carvedilol [Coreg] 6.25 mg tablet 6.25 mg PO BID Qty: 180 RF: 3 losartan 50 mg tablet 50 mg PO DAILY RF: 0 Lantus U-100 Insulin 100 unit/mL solution 40 unit SUBCUT DAILY RF: 0 simvastatin [Zocor] 40 mg tablet 40 mg PO BEDTIME RF: 0 Disabled Parking Permit 1 ea miscellaneous DIRECTED RF: 0 [place] 1 ea topical DIRECTED RF: 0 Syringes: 1cc Insulin Syringes with [place] 1 syr SQ QDAY RF: 0 Referrals: Live Castro MD [Primary Care Provider] -
== END 2018-08-20 19:38 | disposition home or self-care (01) ==
PROVIDERS: Emergency Provider Emergency Medicine; PCP Family Medicine
DX: S20.211A Contusion of right front wall of thorax, initial encounter (principal); S60.211A Contusion of right wrist, initial encounter; M25.562 Pain in left knee; W19.XXXA Unspecified fall, initial encounter
CPT/HCPCS: 70450; 71101; 72125; 73110; 73502; 73562; 99283; 99284

== ENCOUNTER → 2019-01-03 13:27 | Outpatient (CLI) | payer OTHER, SELFPAY ==
[2019-01-03 14:06] LABS: Hemoglobin A1C% w Est Avg Glu 7.4 % (4.0-6.0)
== END ==
PROVIDERS: PCP Family Medicine; Visit Provider Family Medicine
DX: E11.9 Type 2 diabetes mellitus without complications (principal)
CPT/HCPCS: 36415; 83036

== ENCOUNTER → 2019-05-09 14:17 | Outpatient (CLI) | payer OTHER, SELFPAY ==
[2019-05-09 15:40] LABS: Add Manual Diff / Slide Review NO; Basophils Absolute Auto 100 /uL (0-100); Basophils Percent Auto 0.8 % (0-2); Eosinophils Absolute Auto 300 /uL (0-450); Eosinophils Percent Auto 3.3 % (2-4); Hematocrit 42.7 % (36-46); Hemoglobin 14.7 g/dL (12.0-16.0); Lymphocytes Absolute Auto 2800 /uL (1100-4500); Lymphocytes Percent Auto 32.5 % (25-40); Mean Corpuscular HGB Conc 34.4 % (30-36); Mean Corpuscular Hemoglobin 29.5 PG (26-34); Mean Corpuscular Volume 85.7 fL (80-100); Monocytes Absolute Auto 800 /uL (0-900); Monocytes Percent Auto 9.4 % (3-14); Neutrophils Absolute Auto 4600 /uL (1500-7000); Platelet Count 219 X10^3/uL (150-400); Red Blood Cell Count 4.98 X10^6/uL (4.0-5.2); Red Cell Distribution Width 14.3 % (11.6-14.8); White Blood Cell Count 8.5 X10^3/uL (4.5-11.0)
[2019-05-09 15:58] LABS: Alanine Aminotransferase 21 IU/L (<35); Albumin Globulin Ratio 1.3 (1.0-2.8); Alkaline Phosphatase 229 U/L (38-126); Aspartate Aminotransferase 36 IU/L (14-36); Bilirubin Total 0.5 mg/dL (0.2-1.3); Blood Urea Nitrogen 28 mg/dL (7-17); Calcium 9.8 mg/dL (8.4-10.2); Carbon Dioxide 28 mmol/L (22-32); Chloride 103 mmol/L (98-107); Cholesterol 167 mg/dL (140-199); Estimated Glomerular Filt Rate > 60.0 mL/min (>60); Globulin 3.1 g/dL (1.7-4.1); Glucose 190 mg/dL (80-110); HDL Cholesterol 24 mg/dL (40-60); HEMOLYSIS 24 (0-50); Potassium 3.9 mmol/L (3.4-5.1); Sodium 140 mmol/L (137-145); Total Protein 7.1 g/dL (6.3-8.2); Triglycerides 467 mg/dL (35-150)
[2019-05-09 16:03] LABS: Hemoglobin A1C% w Est Avg Glu 7.6 % (4.0-6.0)
[2019-05-09 16:54] LABS: TSH w/ Reflex to FT4 2.87 uIU/mL (0.47-4.68)
[2019-05-09 17:32] LABS: Creatinine Urine Random 99.6 mg/dL
[2019-05-09 17:37] LABS: Microalbumin Urine Random 1.9 mg/dL (0-1.6)
== END ==
PROVIDERS: PCP Family Medicine; Visit Provider Family Medicine
DX: E11.9 Type 2 diabetes mellitus without complications (principal); I10 Essential (primary) hypertension; I50.20 Unspecified systolic (congestive) heart failure
CPT/HCPCS: 36415; 80053; 80061; 82043; 82570; 83036; 84443; 85025

== ENCOUNTER → 2019-05-23 09:20 | Outpatient (CLI) | payer OTHER, SELFPAY ==
--- NOTE | 2019-06-10 14:54 | PM.CARDMON.1 ---
Inbound Customer Service Representative Report Referral & Results Date Patient Seen: 05/23/19 Requesting provider: Live Castro Indication: Atrial fibrillation Duration of monitoring (days): 2 Diary information: There are no patient triggered events or diary entries Data: Minimum heart rate identified was 56 beats per minute at 13:22 on 05/24/2019 Maximum sinus heart rate was 125 beats per minute at 01:50 on 05/25/2019 Maximum overall heart rate was 144 beats per minute at 14:28 on 05/23/2019 during a 4 beat run of supraventricular tachycardia/atrial tachycardia Less than 1% of identified beats were supraventricular ectopic in origin Approximately 3.4% of identified beats were ventricular ectopic in origin No atrial fibrillation was identified Impression: Primarily ventricular ectopic beats as above. No other serious dysrhythmias identified. Specifically no atrial fibrillation identified
== END ==
PROVIDERS: PCP Family Medicine; Visit Provider Family Medicine
DX: I48.91 Unspecified atrial fibrillation (principal)
CPT/HCPCS: 0296T; 0298T

== ENCOUNTER 2019-05-25 01:49 | Inpatient (IN) | payer MEDICARE, SELFPAY ==
[2019-05-25] VITALS (31 sets, daily range): BP systolic 106–200; BP diastolic 55–107; PULSE 63–128; RESP 10–49; TEMP 36–37.6; O2SAT 73–99; BMI 31.6
[2019-05-25] MEDS: FUROSEMIDE 40 MG/4 ML VIAL IV ×4 (01:59→23:36)
[2019-05-25] MEDS: NITROGLYCERIN 0.4 MG SL TAB SL (02:00)
--- NOTE | 2019-05-25 02:00 | DI.RAD.S_ITS ---
PROCEDURE: XR CHEST 1V INDICATIONS: shortness of breath TECHNIQUE: One view of the chest was acquired. COMPARISON: [facility], CHEST 2 VIEW, 04/28/2014, 17:03. [facility], CHEST 1 VIEW, 06/29/2017, 14:53. FINDINGS: Surgical changes and devices: Upper lumbar vertebroplasty cement can be seen. Lungs and pleura: There is poorly defined infiltrate seen involving the right lower lung. Interstitial prominence is seen throughout, which is increased compared to the prior chest radiograph. No pneumothorax is seen. Small bilateral pleural effusions are suspected. Mediastinum: The cardiac contours are within normal limits. The aorta demonstrates calcification and tortuosity. Bones and chest wall: No suspicious bony lesions. Age-appropriate bony degenerative changes are seen. Overlying soft tissues appear unremarkable. IMPRESSION: Right lower lung infiltrate. Interstitial prominence is seen, which is suggestive of fluid overload. Note: No significant discrepancy from the preliminary report. Dictated by: Zaire Quiroz M.D. on 05/25/2019 at 9:02 Approved by: Zaire Quiroz M.D. on 05/25/2019 at 9:03
--- NOTE | 2019-05-25 02:08 | ED_ITS ---
HPI - SOB/Dyspnea General Chief Complaint: Shortness of Breath/Dyspnea Stated Complaint: difficulty breathing Time Seen by Provider: 05/25/19 01:58 Source: patient, family and old records reviewed Limitations: physical limitation History of Present Illness HPI Narrative: Patient is an 78-year-old female history of cardiomyopathy, recent Zio patch placed presenting with sudden-onset shortness of breath. She actually was seen evaluated walk-in clinic for upper respiratory like symptoms given albuterol azithromycin. states that this evening she woke him up with increased difficulty breathing. He says that it started a couple weeks ago he had cold-like symptoms he thinks he passed it on to her. He says that she was having some trouble breathing today as well but it got significantly worse this evening. The patient is unable to speak in full sentences and in obvious respiratory distress MD Complaint: shortness of breath Context: recent illness Related Data Home Medications Medication Instructions Recorded Confirmed Disabled Parking Permit 1 ea MISCELLANEOUS DIRECTED 08/20/18 05/25/19 losartan 50 mg PO DAILY 08/20/18 05/25/19 Previous Rx's Medication Instructions Recorded oxybutynin chloride 5 mg 5 mg PO DAILY #90 tab 12/14/17 tablet,extended release 24 hr carvedilol [Coreg] 6.25 mg PO BID #180 tab 07/19/18 insulin glargine 100 unit/mL 40 unit SUBCUT DAILY #10 ml 09/20/18 subcutaneous solution levothyroxine 100 mcg tablet See Rx Instructions .ROUTE 02/02/19 .COMPLEX #90 tablet Syringes: 1cc Insulin Syringes #100 each 03/14/19 with [place] furosemide 40 mg tablet See Rx Instructions .ROUTE 03/14/19 .COMPLEX #180 tablet potassium chloride 20 mEq 20 meq PO BID #180 tab 03/21/19 tablet,extended release albuterol sulfate 90 mcg/actuation 2 puff INHALATION Q4-6H PRN #8.5 05/23/19 aerosol inhaler gram azithromycin 250 mg tablet See Rx Instructions PO .COMPLEX #6 05/23/19 tab benzonatate 100 mg capsule 100 mg PO BID PRN #20 cap 05/23/19 Allergies Allergy/AdvReac Type Severity Reaction Status Date / Time egg Allergy Severe weakness Verified 05/25/19 02:31 on the right side of body after vaccine Anesthetics - Amide Type Allergy Unknown Verified 05/25/19 02:31 [ANESTHETICS - AMIDE TYPE] codeine [CODEINE] Allergy Unknown Verified 05/25/19 02:31 lidocaine [From XYLOCAINE] Allergy Unknown WHEN HAD Verified 05/25/19 02:31 TEETH WORKED ON lisinopril [LISINOPRIL] Allergy Unknown Verified 05/25/19 02:31 milk [MILK] Allergy Unknown Verified 05/25/19 02:31 morphine [MORPHINE] Allergy Unknown Verified 05/25/19 02:31 oxycodone [OXYCODONE] Allergy Unknown Verified 05/25/19 02:31 Penicillins [PENICILLINS] Allergy Unknown Verified 05/25/19 02:31 influenza virus vaccine, Allergy weakness Verified 05/25/19 02:31 specific on the right side of body after vaccine Review of Systems Review of Systems ROS Unobtainable: Unobtainable due to medical condition Patient History Medical History Atrial fibrillation (Chronic 09/20/10) Bilateral shoulder pain (Inactive) Bipolar disorder (Chronic) Cardiomyopathy (Chronic) Chicken pox (Resolved) Chronic diarrhea (Chronic 06/10/16) Controlled type 2 diabetes mellitus (Chronic 09/20/10) Diarrhea (Acute) Essential hypertension (Chronic 09/20/10) History of Graves' disease (Chronic) History of placenta previa (Resolved) Irritable bowel syndrome (Acute) Minor head injury without loss of consciousness (Resolved) Neuropathy of both feet (Chronic) Renal artery stenosis (Chronic 09/20/10) Retinal scar (Chronic) Rheumatoid arthritis (Chronic) Right leg pain (Resolved) Sprain of left shoulder (Inactive) Stroke (Resolved) Systolic congestive heart failure (Chronic 09/20/10) Thyroid nodule (Chronic) Vision disorder (Chronic) Surgical History Anesthesia (Resolved) History of hip replacement (Resolved) History of knee replacement (Resolved) History of partial surgical removal of colon (Resolved 06/10/16) Status post dilation and curettage Social History Smoking Status: Former smoker Smoking Status: Former smoker Exam Initial Vital Signs Initial Vital Signs: Vital Signs Temperature 96.8 F L 05/25/19 01:50 Pulse Rate 93 H 05/25/19 01:50 Respiratory Rate 46 H 05/25/19 01:50 Blood Pressure 200/100 H 05/25/19 01:50 Pulse Oximetry 95 05/25/19 01:50 GENERAL: Alert female in severe respiratory distress HEENT: Head atraumatic,EOMI, pupils reactive CARDIOVASCULAR: Regular rate and rhythm without murmurs, rubs or gallops. RESPIRATORY: Coarse breath sounds bilaterally unable to speak in full sentences tachypneic ABDOMEN: Soft, nontender. Normoactive bowel sounds all 4 quadrants. No guarding or rebound. EXTREMITIES: Normal range of motion, no clubbing or edema. Neurovascularly intact NEUROLOGICAL: Moving all extremities no gross deficits SKIN: Warm, dry, no laceration, no petechiae, no rashes or lesions. Course Orders Ordered: ED Orders 05/25/19 EKG-12 Lead Stat 05/25/19 01:59 Consult to Respiratory Therapy Evaluate & Treat EKG-12 Lead Stat 05/25/19 02:00 XR chest 1V Stat 05/25/19 02:01 B Type Natriuretic Peptide Stat Complete Blood Count AUTO DIFF Stat Comprehensive Metabolic Panel Stat Magnesium Stat Partial Thromboplastin Time Stat Procalcitonin Stat Prothrombin Time INR Stat Troponin & CK Cardiac Panel Stat 05/25/19 02:10 Lactate (Lactic Acid) Stat 05/25/19 02:12 Urinalysis and Microscopic Stat 05/25/19 02:27 Blood Culture Stat Influenza A & B (PCR) Stat Albuterol (Ventolin Hfa) 2 puff INH Q4H PRN PRN Reason: bronchospasm Carvedilol (Coreg) 6.25 mg PO BIDWM KIKO Dextrose (D50w) 25 gm IV PRN PRN PRN Reason: Hypoglycemia Enoxaparin Sodium (Lovenox) 40 mg SUBCUT DAILY KIKO Furosemide (Lasix) 40 mg IV Q12HR KIKO Azithromycin 250 mg/ Dextrose 250 mls @ 250 mls/hr IV Q24H KIKO Ceftriaxone Sodium/Dextrose (Rocephin) 1 gm in 50 mls @ 100 mls/hr IV Q12H KIKO Insulin Aspart (Novolog Flexpen) 0 unit SUBCUT ACHS KIKO; Protocol Insulin Glargine (Lantus Solostar (Pen)) 20 unit SUBCUT DAILYCC KIKO Levothyroxine Sodium (Synthroid) 100 mcg PO .COMPLEX KIKO Losartan Potassium (Cozaar) 50 mg PO DAILY KIKO Naloxone HCl (Narcan) 0.2 mg IV Q2MIN PRN PRN Reason: Opiate Reversal Oxybutynin Chloride (Ditropan Xl) 5 mg PO DAILY KIKO Discontinued Medications Furosemide (Lasix) 40 mg IV NOW ONE Stop: 05/25/19 02:00 Last Admin: 05/25/19 01:59 Dose: 40 mg Documented by: AIMEE Furosemide (Lasix) 20 mg IV NOW ONE Stop: 05/25/19 02:05 Last Admin: 05/25/19 02:17 Dose: Not Given Documented by: AIMEE Ceftriaxone Sodium/Dextrose (Rocephin) 1 gm in 50 mls @ 100 mls/hr IV NOW ONE Stop: 05/25/19 03:20 Last Infusion: 05/25/19 03:37 Dose: 0 mls/hr Documented by: Admin: 05/25/19 03:02 Dose: 100 mls/hr Documented by: AIMEE Azithromycin 500 mg/ Dextrose 250 mls @ 250 mls/hr IV NOW ONE Stop: 05/25/19 02:52 Last Infusion: 05/25/19 04:54 Dose: 0 mls/hr Documented by: Admin: 05/25/19 03:37 Dose: 250 mls/hr Documented by: AIMEE Nitroglycerin (Nitrostat) 0.4 mg SL NOW ONE Stop: 05/25/19 02:00 Last Admin: 05/25/19 02:00 Dose: 0.4 mg Documented by: AIMEE Consultations Consultation #1: Dr. Walter, updated patient's symptoms test results in ED to see and evaluate patient Time: 03:37 Vital Signs Vital signs: Vital Signs - 8 hr 05/25/19 01:50 05/25/19 02:00 05/25/19 02:05 Temperature 96.8 F L 96.8 F L Pulse Rate 93 H 128 H 97 H Respiratory Rate 46 H 45 H 41 H Blood Pressure 200/100 H 200/100 H Blood Pressure [Left Arm] 200/102 H 189/90 H Pulse Oximetry 95 73 L 99 05/25/19 02:10 05/25/19 02:20 05/25/19 02:30 Temperature Pulse Rate 93 H 96 H 98 H Respiratory Rate 46 H 37 H 49 H Blood Pressure Blood Pressure [Left Arm] 193/94 H 190/107 H 182/99 H Pulse Oximetry 95 96 97 05/25/19 02:40 05/25/19 02:50 05/25/19 03:02 Temperature Pulse Rate 105 H 98 H 96 H Respiratory Rate 38 H 37 H Blood Pressure Blood Pressure [Left Arm] 164/80 H 142/72 H Pulse Oximetry 98 98 97 05/25/19 03:10 05/25/19 03:20 05/25/19 03:32 Temperature Pulse Rate 96 H 93 H 92 H Respiratory Rate 36 H 39 H 30 H Blood Pressure Blood Pressure [Left Arm] 143/68 H 137/63 136/65 Pulse Oximetry 97 97 98 05/25/19 03:47 Temperature Pulse Rate 96 H Respiratory Rate 33 H Blood Pressure Blood Pressure [Left Arm] 141/66 H Pulse Oximetry 98 MDM - SOB/Dyspnea Lab Data Result diagrams: 05/25/19 02:01 05/25/19 02:01 Labs: Lab Results 05/25/19 05/25/19 05/25/19 Range/Units 02:01 02:01 02:01 WBC 24.5 H (4.5-11.0) X10^3/uL RBC 5.06 (4.0-5.2) X10^6/uL Hgb 14.5 (12.0-16.0) g/dL Hct 44.3 (36-46) % MCV 87.5 (80-100) fL MCH 28.6 (26-34) PG MCHC 32.7 (30-36) % RDW 14.1 (11.6-14.8) % Plt Count 330 (150-400) X10^3/uL Neut % (Auto) 52.5 (50-75) % Lymph % (Auto) 38.2 (25-40) % [place] % (Auto) 6.7 (3-14) % Eos % (Auto) 1.8 L (2-4) % Baso % (Auto) 0.8 (0-2) % Neut # (Auto) 51813 H (7103-2646) /uL Lymph # (Auto) 9400 H (7050-8241) /uL [place] # (Auto) 1600 H (0-900) /uL Eos # (Auto) 500 H (0-450) /uL Baso # (Auto) 200 H (0-100) /uL PT 12.3 (10.1-12.7) SECONDS INR 1.1 (0.9-1.3) APTT 26 L (26.4-36.2) SECONDS Sodium 139 (137-145) mmol/L Potassium 4.0 (3.4-5.1) mmol/L Chloride 102 (98-107) mmol/L Carbon Dioxide 20 L (22-32) mmol/L BUN 16 (7-17) mg/dL Creatinine 0.80 (0.52-1.04) mg/dL Estimated GFR > 60.0 (>60) mL/min BUN/Creatinine Ratio 20.0 (6-22) Glucose 286 H (80-110) mg/dL Lactate (0.7-2.1) mmol/L Calcium 9.7 (8.4-10.2) mg/dL Magnesium 2.2 (1.6-2.3) mg/dL Total Bilirubin 0.8 (0.2-1.3) mg/dL AST 62 H (14-36) IU/L ALT 27 (<35) IU/L Alkaline Phosphatase 188 H (38-126) U/L Total Creatine Kinase 899 H (30-135) U/L CK-MB (CK-2) 2.92 H (<2.37) ng/mL CK-MB (CK-2) Rel Index 0.3 L (1.5-5.0) % Troponin I 0.036 H (0.01-0.034) ng/mL B-Natriuretic Peptide 1150 H (<100) Total Protein 7.6 (6.3-8.2) g/dL Albumin 4.0 (3.5-5.0) g/dL Globulin 3.6 (1.7-4.1) g/dL Albumin/Globulin Ratio 1.1 (1.0-2.8) Procalcitonin (<0.5) ng/mL Urine Color Urine Appearance Urine pH (4.5-8.0) Ur Specific [place] (1.000-1.035) Urine Protein (Negative) Urine Glucose (UA) (Negative) g/dL Urine Ketones (NEGATIVE) Urine Occult Blood (Negative) Urine Nitrate (Negative) Urine Bilirubin (NEGATIVE) Urine Urobilinogen (0.2) E.U./dL Ur Leukocyte Esterase (NEGATIVE) Urine RBC (0-5/HPF) Urine WBC (0-5/HPF) Ur Squamous Epith Cells (0-5/HPF) Amorphous Sediment Urine Bacteria (None) Ur Culture Indicated? Influenza A (RT-PCR) (NEGATIVE) Influenza B (RT-PCR) (NEGATIVE) 05/25/19 05/25/19 05/25/19 Range/Units 02:01 02:10 02:12 WBC (4.5-11.0) X10^3/uL RBC (4.0-5.2) X10^6/uL Hgb (12.0-16.0) g/dL Hct (36-46) % MCV (80-100) fL MCH (26-34) PG MCHC (30-36) % RDW (11.6-14.8) % Plt Count (150-400) X10^3/uL Neut % (Auto) (50-75) % Lymph % (Auto) (25-40) % [place] % (Auto) (3-14) % Eos % (Auto) (2-4) % Baso % (Auto) (0-2) % Neut # (Auto) (1192-9433) /uL Lymph # (Auto) (9132-3274) /uL [place] # (Auto) (0-900) /uL Eos # (Auto) (0-450) /uL Baso # (Auto) (0-100) /uL PT (10.1-12.7) SECONDS INR (0.9-1.3) APTT (26.4-36.2) SECONDS Sodium (137-145) mmol/L Potassium (3.4-5.1) mmol/L Chloride (98-107) mmol/L Carbon Dioxide (22-32) mmol/L BUN (7-17) mg/dL Creatinine (0.52-1.04) mg/dL Estimated GFR (>60) mL/min BUN/Creatinine Ratio (6-22) Glucose (80-110) mg/dL Lactate 3.3 H (0.7-2.1) mmol/L Calcium (8.4-10.2) mg/dL Magnesium (1.6-2.3) mg/dL Total Bilirubin (0.2-1.3) mg/dL AST (14-36) IU/L ALT (<35) IU/L Alkaline Phosphatase (38-126) U/L Total Creatine Kinase (30-135) U/L CK-MB (CK-2) (<2.37) ng/mL CK-MB (CK-2) Rel Index (1.5-5.0) % Troponin I (0.01-0.034) ng/mL B-Natriuretic Peptide (<100) Total Protein (6.3-8.2) g/dL Albumin (3.5-5.0) g/dL Globulin (1.7-4.1) g/dL Albumin/Globulin Ratio (1.0-2.8) Procalcitonin < 0.05 (<0.5) ng/mL Urine Color Yellow Urine Appearance Clear Urine pH 5.0 (4.5-8.0) Ur Specific [place] 1.015 (1.000-1.035) Urine Protein 2+ H (Negative) Urine Glucose (UA) Negative (Negative) g/dL Urine Ketones Negative (NEGATIVE) Urine Occult Blood Trace-intact (Negative) Urine Nitrate Negative (Negative) Urine Bilirubin Negative (NEGATIVE) Urine Urobilinogen 0.2 (0.2) E.U./dL Ur Leukocyte Esterase Negative (NEGATIVE) Urine RBC 0-1/hpf (0-5/HPF) Urine WBC None seen (0-5/HPF) Ur Squamous Epith Cells 0-1 /hpf (0-5/HPF) Amorphous Sediment 2+ Urine Bacteria Occasional (0-1) (None) Ur Culture Indicated? Cult not indicated Influenza A (RT-PCR) (NEGATIVE) Influenza B (RT-PCR) (NEGATIVE) 05/25/19 Range/Units 02:27 WBC (4.5-11.0) X10^3/uL RBC (4.0-5.2) X10^6/uL Hgb (12.0-16.0) g/dL Hct (36-46) % MCV (80-100) fL MCH (26-34) PG MCHC (30-36) % RDW (11.6-14.8) % Plt Count (150-400) X10^3/uL Neut % (Auto) (50-75) % Lymph % (Auto) (25-40) % [place] % (Auto) (3-14) % Eos % (Auto) (2-4) % Baso % (Auto) (0-2) % Neut # (Auto) (4629-9419) /uL Lymph # (Auto) (6274-4704) /uL [place] # (Auto) (0-900) /uL Eos # (Auto) (0-450) /uL Baso # (Auto) (0-100) /uL PT (10.1-12.7) SECONDS INR (0.9-1.3) APTT (26.4-36.2) SECONDS Sodium (137-145) mmol/L Potassium (3.4-5.1) mmol/L Chloride (98-107) mmol/L Carbon Dioxide (22-32) mmol/L BUN (7-17) mg/dL Creatinine (0.52-1.04) mg/dL Estimated GFR (>60) mL/min BUN/Creatinine Ratio (6-22) Glucose (80-110) mg/dL Lactate (0.7-2.1) mmol/L Calcium (8.4-10.2) mg/dL Magnesium (1.6-2.3) mg/dL Total Bilirubin (0.2-1.3) mg/dL AST (14-36) IU/L ALT (<35) IU/L Alkaline Phosphatase (38-126) U/L Total Creatine Kinase (30-135) U/L CK-MB (CK-2) (<2.37) ng/mL CK-MB (CK-2) Rel Index (1.5-5.0) % Troponin I (0.01-0.034) ng/mL B-Natriuretic Peptide (<100) Total Protein (6.3-8.2) g/dL Albumin (3.5-5.0) g/dL Globulin (1.7-4.1) g/dL Albumin/Globulin Ratio (1.0-2.8) Procalcitonin (<0.5) ng/mL Urine Color Urine Appearance Urine pH (4.5-8.0) Ur Specific [place] (1.000-1.035) Urine Protein (Negative) Urine Glucose (UA) (Negative) g/dL Urine Ketones (NEGATIVE) Urine Occult Blood (Negative) Urine Nitrate (Negative) Urine Bilirubin (NEGATIVE) Urine Urobilinogen (0.2) E.U./dL Ur Leukocyte Esterase (NEGATIVE) Urine RBC (0-5/HPF) Urine WBC (0-5/HPF) Ur Squamous Epith Cells (0-5/HPF) Amorphous Sediment Urine Bacteria (None) Ur Culture Indicated? Influenza A (RT-PCR) Flu a negative (NEGATIVE) Influenza B (RT-PCR) Flu b negative (NEGATIVE) ECG Data Attestation: I personally reviewed and interpreted this ECG as follows: Prior ECG tracings: available for review Interpretation: EKG left bundle branch block noted sinus rhythm rate 100 similar prior EKG some artifact noted as EKG 2. Left bundle branch block rate 87 sinus rhythm no changes from prior MDM Narrative Medical decision making narrative: Patient in severe respiratory distress immediately placed on BiPAP. She was given nitroglycerin and Lasix in order to help diurese. No known prior history of congestive heart failure or COPD according the or notes. X-ray and elevation of BNP does confirm CHF. However she does have leukocytosis of 24,000 and lactic acid 3.3. Lactic acid may be due to severe respiratory distress versus sepsis. Will cover her with antibiotics for pneumonia as well based on her symptoms. Patient tolerated BiPAP and his had urine output she overall improved significantly. Critical Care Time Critical Care Time Critical Care Time: Yes Total Critical Care Time: 45 Attestation: The high probability of a clinically significant, sudden or life threatening deterioration of the [cardiovascular] system(s) required my full and direct attention, intervention and personal management. The aggregate critical care time was [45] minutes. This time is in addition to time spent performing reported procedures but includes the following: [x] Data Review and interpretation [x] Patient assessment and monitoring of vital signs [x] Documentation [x] Medication orders and management Discharge Plan Departure Patient Disposition: Admitted As Inpatient Clinical Impression: Systolic congestive heart failure Qualifiers: Heart failure chronicity: acute Qualified Code(s): I50.21 - Acute systolic (congestive) heart failure Respiratory failure Qualifiers: Chronicity: acute Respiratory failure complication: unspecified whether with hypoxia or hypercapnia Qualified Code(s): J96.00 - Acute respiratory failure, unspecified whether with hypoxia or hypercapnia Discharge Date/Time: 05/25/19 05:00 Admit Date/Time: 05/25/19 04:02 Admit Provider: Neel Walter
[2019-05-25 02:13] LABS: Add Manual Diff / Slide Review NO; Basophils Absolute Auto 200 /uL (0-100); Basophils Percent Auto 0.8 % (0-2); Eosinophils Absolute Auto 500 /uL (0-450); Eosinophils Percent Auto 1.8 % (2-4); Hematocrit 44.3 % (36-46); Hemoglobin 14.5 g/dL (12.0-16.0); Lymphocytes Absolute Auto 9400 /uL (1100-4500); Lymphocytes Percent Auto 38.2 % (25-40); Mean Corpuscular HGB Conc 32.7 % (30-36); Mean Corpuscular Hemoglobin 28.6 PG (26-34); Mean Corpuscular Volume 87.5 fL (80-100); Monocytes Absolute Auto 1600 /uL (0-900); Monocytes Percent Auto 6.7 % (3-14); Neutrophils Absolute Auto 12900 /uL (1500-7000); Neutrophils Percent Auto 52.5 % (50-75); Platelet Count 330 X10^3/uL (150-400); Red Blood Cell Count 5.06 X10^6/uL (4.0-5.2); Red Cell Distribution Width 14.1 % (11.6-14.8); White Blood Cell Count 24.5 X10^3/uL (4.5-11.0)
[2019-05-25 02:19] LABS: INR 1.1 (0.9-1.3); Prothrombin Time 12.3 SECONDS (10.1-12.7)
[2019-05-25 02:22] LABS: Alanine Aminotransferase 27 IU/L (<35); Albumin Globulin Ratio 1.1 (1.0-2.8); Alkaline Phosphatase 188 U/L (38-126); Aspartate Aminotransferase 62 IU/L (14-36); Bilirubin Total 0.8 mg/dL (0.2-1.3); Blood Urea Nitrogen 16 mg/dL (7-17); Calcium 9.7 mg/dL (8.4-10.2); Carbon Dioxide 20 mmol/L (22-32); Chloride 102 mmol/L (98-107); Creatine Kinase 899 U/L (30-135); Estimated Glomerular Filt Rate > 60.0 mL/min (>60); Globulin 3.6 g/dL (1.7-4.1); Glucose 286 mg/dL (80-110); Magnesium 2.2 mg/dL (1.6-2.3); PTT Partial Thromboplastin Tim 26 SECONDS (26.4-36.2); Sodium 139 mmol/L (137-145); Total Protein 7.6 g/dL (6.3-8.2)
[2019-05-25 02:32] LABS: Troponin I 0.036 ng/mL (0.01-0.034)
[2019-05-25 02:37] LABS: CKMB % Relative Index 0.3 % (1.5-5.0); Creatine Kinase MB 2.92 ng/mL (<2.37)
[2019-05-25 02:38] LABS: Procalcitonin < 0.05 ng/mL (<0.5)
[2019-05-25 02:38] LABS: Lactate (Lactic Acid) 3.3 mmol/L (0.7-2.1)
[2019-05-25 02:39] LABS: B Type Natriuretic Peptide 1150 (<100)
[2019-05-25 02:41] LABS: HEMOLYSIS 104 (0-50)
[2019-05-25 02:44] LABS: Appearance Urine UA CLEAR; Bilirubin Urine UA NEGATIVE (NEGATIVE); Color Urine UA YELLOW; Glucose Urine UA NEGATIVE (Negative); Ketones Urine UA NEGATIVE (NEGATIVE); Leukocyte Esterase Urine UA NEGATIVE (NEGATIVE); Nitrite Urine UA NEGATIVE (Negative); Occult Blood Urine UA TRACE-INTACT (Negative); Protein Urine UA 2+ (Negative); Specific Gravity Urine UA 1.015 (1.000-1.035); Urobilinogen Urine UA 0.2 E.U./dL (0.2); WBC Urine None Seen (0-5/HPF)
[2019-05-25 02:45] LABS: Amorphous Sediment Urine 2+; Bacteria Urine Occasional (0-1); Culture Indicated Urine Cult Not Indicated; RBC Urine 0-1/HPF (0-5/HPF); Squamous Epithelial Cell Urine 0-1 /HPF (0-5/HPF)
[2019-05-25] MEDS: CEFTRIAXONE 1 GM/50 ML FROZ.PIGGY IV ×2 (03:02→16:38)
[2019-05-25 03:05] LABS: Influenza A - CEPHEID Flu A NEGATIVE (NEGATIVE); Influenza B - CEPHEID Flu B NEGATIVE (NEGATIVE)
[2019-05-25] MEDS: AZITHROMYCIN 500 MG in DEXTROSE 5% IN WATER 250 ML IV (03:37)
[2019-05-25 04:21] LABS: Reflexed Lactate in 2 Hours Y
[2019-05-25 04:50] LABS: PCO2 ABG 34.7 mmHg (35-45); PO2 ABG 172 mmHg (80-100); pH ABG 7.39 (7.35-7.45)
[2019-05-25 04:51] LABS: HCO3 ABG 21 mmol/L (22-26); Oxygen Saturation ABG 100 % (95-100); TCO2 ABG 22 mmol/L (21-31)
--- NOTE | 2019-05-25 04:53 | DI.ECHO.S_ITS ---
[facility] +---------+ [facility] +---------+ : : [address] : : : : [id number] : : : : Phone: [phone] Echocardiogram Report + + :Name: ABRAN BETANCOURT Study Date: 05/25/2019 Height: 63 in : :[facility] Weight: 173 lb : : Gender: Female BSA: 1.8 m2 : :: 1940 Age: 78 yrs BP: 132/82 mmHg: :Reason For Study: CHF : :Ordering Physician: Dr. Shaikh : :Jose Angel Performed By: Daryl Juárez : :Referring: CAROLYNE KENNEDY : + + Interpretation Summary 1) Normal left ventricular wall size with mildly increased thickness (concentric) and severely reduced systolic function (EF 20-25%). 2) There is severe global hypokinesis of the left ventricle that appears worse at the apex. 3) Normal right ventricular size and function. 4) There is mild to moderate mitral regurgitation. 5) Right ventricular systolic pressure is estimated to be 45 mmHg plus the clinically estimated CVP which cannot be estimated on this exam. 6) Compared to the Echo done 03/09/2009, LVEF has decreased from about 50% visually to 20-25% on this study. Procedure: A two-dimensional transthoracic echocardiogram with color flow and Doppler was performed. The study quality was technically adequate. A contrast injection of Definity was performed to improve assessment of LV function. Prior echo performed on 03/09/09. The patient was in normal sinus rhythm during the exam. Left Ventricle: The left ventricle is normal in size. Left ventricular wall thickness is mildly increased. Left ventricular systolic function is severely reduced. The ejection fraction is estimated to be 20-25%. There is severe global hypokinesis of the left ventricle. Right Ventricle: The right ventricle is normal in size and function. Atria: The left atrium is severely dilated. Right atrial size is normal. The interatrial septum is intact with no evidence for an atrial septal defect. Mitral Valve: The mitral valve leaflets appear mildly thickened, but open well. There is mild to moderate mitral annular calcification. There is mild to moderate mitral regurgitation. Aortic Valve: The aortic valve is not well visualized. The aortic valve opens well. There is no aortic valve stenosis. There is trace aortic regurgitation. Tricuspid Valve: The tricuspid valve leaflets are thin and pliable. There is mild tricuspid regurgitation. Right ventricular systolic pressure is estimated to be 45 mmHg plus the clinically estimated CVP which cannot be estimated on this exam. Pulmonic Valve: The pulmonic valve is not well visualized. There is trace pulmonic regurgitation. Great Vessels: The aortic root is normal size. The ascending aorta could not be visualized. The pulmonary artery is normal size. The inferior vena cava was not visualized. Pericardium/ Pleura There is no pericardial effusion. There is no pleural effusion. MMode/2D Measurements & Calculations LVIDd: 4.6 cm LVOT diam: 2.2 cm LVIDs: 4.4 cm Ao root diam: 2.9 cm FS: 5.0 % IVSd: 1.5 cm LVPWd: 1.2 cm LV garcia. diameter/BSA (cm/m^2): 2.5 LV sys. diameter/BSA (cm/m^2): 2.4 LA A2 area: 21.8 cm2 RA long axis: 4.8 cm LA A4 area: 24.3 cm2 RA area: 11.4 cm2 LA length (vol): 5.1 cm RA vol: 22.8 ml LA vol: 87.5 ml RA : 12.5 ml/m2 LA vol index: 48.1 ml/m2 TAPSE: 2.2 cm Doppler Measurements & Calculations Ao V2 max: 168.7 cm/sec LVOT Max Oneil: 89.0 cm/sec Ao V2 mean: 111.8 cm/sec LV V1 max P.2 mmHg Ao max P.4 mmHg LV V1 VTI: 15.3 cm Ao mean P.9 mmHg WALDO(I,D): 1.6 cm2 Ao V2 VTI: 35.3 cm WALDO(V,D): 1.9 cm2 sev ratio: 0.43 WALDO indexed to BSA (cm^2/m^2): 0.88 MV E max oneil: 131.0 cm/sec TR max oneil: 305.1 cm/sec MV A max oneil: 155.6 cm/sec TR max P.4 mmHg MV E/A: 0.84 PA V2 max: 101.4 cm/sec Med Peak E' Oneil: 2.7 cm/sec PA V2 mean: 72.1 cm/sec E/E' med: 48.8 PA mean P.3 mmHg Lat Peak E' Oneil: 6.8 cm/sec PA Accel Time: 0.09 sec E/E' lat: 19.2 E/e' average: 34.0 MV dec time: 0.17 sec SV(LVOT): 56.4 ml Reading Physician:12:04 PM
--- NOTE | 2019-05-25 05:04 | P.HP_ITS ---
History of Present Illness History of Present Illness Date Patient Seen: 05/25/19 Time Patient Seen: 05:04 Chief complaint: difficulty breathing Narrative: Shortness of breath. Patient admitted early this morning through the emergency room for shortness of breath. History primarily from as patient currently has BiPAP mask and is difficult to understand. relates patient has been ill with a respiratory of his for approximately 10 days primarily with cough and minimal production no head congestion. Denies any fevers or chills. Has had frequent loose stools which apparently is her normal. No chest pain no palpitations no dizziness. During the course of the some days patient's respiratory status worsened she was seen in the walk-in clinic on Thursday felt to have acute pneumonia placed on azithromycin given at inhalation therapy treated with seemed to help. Today however patient's respiratory status worsened she was having more more difficult breathing. Events clearly this morning was felt that she is needing further evaluation was brought to the emergency room. She was seen here and felt to have a combination of acute congestive heart failure and pneumonia was placed on intravenous antibiotics and given 60 mg of I V Lasix with significant diuresis and improvement of her respiratory status. She currently is on BiPAP. Patient has no history of any rate pulmonary disorder. She does have history in the chart of congestive heart failure but none recently. Also there is a comment about acute atrial fibrillation but is no evidence of that. Patient indeed had a ZIO patch placed for evaluation atrial fibrillation but unclear why that was done at this time. Other medical problems include insulin-dependent diabetes. Patient takes 40 units of Lantus every morning does not monitor blood sugars at home. History of hypertension. Cough hypothyroidism stable patient relates her last hemoglobin A1c was 7.4 Patient History Medical History Atrial fibrillation (Chronic 09/20/10) Bilateral shoulder pain (Inactive) Bipolar disorder (Chronic) Cardiomyopathy (Chronic) Chicken pox (Resolved) Chronic diarrhea (Chronic 06/10/16) Controlled type 2 diabetes mellitus (Chronic 09/20/10) Diarrhea (Acute) Essential hypertension (Chronic 09/20/10) History of Graves' disease (Chronic) History of placenta previa (Resolved) Irritable bowel syndrome (Acute) Minor head injury without loss of consciousness (Resolved) Neuropathy of both feet (Chronic) Renal artery stenosis (Chronic 09/20/10) Retinal scar (Chronic) Rheumatoid arthritis (Chronic) Right leg pain (Resolved) Sprain of left shoulder (Inactive) Stroke (Resolved) Systolic congestive heart failure (Chronic 09/20/10) Thyroid nodule (Chronic) Vision disorder (Chronic) Surgical History Anesthesia (Resolved) History of hip replacement (Resolved) History of knee replacement (Resolved) History of partial surgical removal of colon (Resolved 06/10/16) Status post dilation and curettage Family & Social History Safety & Behavioral: Feels Safe in Current Yes Environment Been Physically Hurt or No Threatened By a Person Tobacco & Substance use: Smoking Status Former smoker alcohol intake frequency 0-2 drinks per day Substance Use Type does not use Meds Home Medications and Allergies Home Medications Medication Instructions Recorded Confirmed Type oxybutynin chloride 5 mg 5 mg PO DAILY #90 tab 12/14/17 05/25/19 Rx tablet,extended release 24 hr carvedilol [Coreg] 6.25 mg PO BID #180 tab 07/19/18 05/25/19 Rx Disabled Parking Permit 1 ea MISCELLANEOUS DIRECTED 08/20/18 05/25/19 History losartan 50 mg PO DAILY 08/20/18 05/25/19 History insulin glargine 100 unit/mL 40 unit SUBCUT DAILY #10 ml 09/20/18 05/25/19 Rx subcutaneous solution levothyroxine 100 mcg tablet See Rx Instructions .ROUTE 02/02/19 05/25/19 Rx .COMPLEX #90 tablet Syringes: 1cc Insulin Syringes #100 each 03/14/19 05/25/19 Rx with Maynard furosemide 40 mg tablet See Rx Instructions .ROUTE 03/14/19 05/25/19 Rx .COMPLEX #180 tablet potassium chloride 20 mEq 20 meq PO BID #180 tab 03/21/19 05/25/19 Rx tablet,extended release albuterol sulfate 90 mcg/actuation 2 puff INHALATION Q4-6H PRN #8.5 05/23/19 05/25/19 Rx aerosol inhaler gram azithromycin 250 mg tablet See Rx Instructions PO .COMPLEX #6 05/23/19 05/25/19 Rx tab benzonatate 100 mg capsule 100 mg PO BID PRN #20 cap 05/23/19 05/25/19 Rx Allergies Allergy/AdvReac Type Severity Reaction Status Date / Time egg Allergy Severe weakness Verified 05/25/19 02:31 on the right side of body after vaccine Anesthetics - Amide Type Allergy Unknown Verified 05/25/19 02:31 [ANESTHETICS - AMIDE TYPE] codeine [CODEINE] Allergy Unknown Verified 05/25/19 02:31 lidocaine [From XYLOCAINE] Allergy Unknown WHEN HAD Verified 05/25/19 02:31 TEETH WORKED ON lisinopril [LISINOPRIL] Allergy Unknown Verified 05/25/19 02:31 milk [MILK] Allergy Unknown Verified 05/25/19 02:31 morphine [MORPHINE] Allergy Unknown Verified 05/25/19 02:31 oxycodone [OXYCODONE] Allergy Unknown Verified 05/25/19 02:31 Penicillins [PENICILLINS] Allergy Unknown Verified 05/25/19 02:31 influenza virus vaccine, Allergy weakness Verified 05/25/19 02:31 specific on the right side of body after vaccine Review of Systems Review of Systems ROS Unobtainable: All systems reviewed & are unremarkable except as noted in HPI and below Exam Vital Signs (past 8 hours): - 05/25/19 01:50 05/25/19 02:00 05/25/19 02:05 Temperature 96.8 F L 96.8 F L Pulse Rate 93 H 128 H 97 H Respiratory Rate 46 H 45 H 41 H Blood Pressure 200/100 H 200/100 H Blood Pressure [Left Arm] 200/102 H 189/90 H Pulse Oximetry 95 73 L 99 05/25/19 02:10 05/25/19 02:20 05/25/19 02:30 Temperature Pulse Rate 93 H 96 H 98 H Respiratory Rate 46 H 37 H 49 H Blood Pressure Blood Pressure [Left Arm] 193/94 H 190/107 H 182/99 H Pulse Oximetry 95 96 97 05/25/19 02:40 05/25/19 02:50 05/25/19 03:02 Temperature Pulse Rate 105 H 98 H 96 H Respiratory Rate 38 H 37 H Blood Pressure Blood Pressure [Left Arm] 164/80 H 142/72 H Pulse Oximetry 98 98 97 05/25/19 03:10 05/25/19 03:20 05/25/19 03:32 Temperature Pulse Rate 96 H 93 H 92 H Respiratory Rate 36 H 39 H 30 H Blood Pressure Blood Pressure [Left Arm] 143/68 H 137/63 136/65 Pulse Oximetry 97 97 98 05/25/19 03:47 05/25/19 04:04 05/25/19 04:30 Temperature Pulse Rate 96 H 90 96 H Respiratory Rate 33 H 32 H 24 Blood Pressure Blood Pressure [Left Arm] 141/66 H 128/80 142/73 H Pulse Oximetry 98 98 99 Fraction of Inspired Oxygen 0.60 Oxygen Delivery Method BiPAP Narrative Exam Narrative: the patient is examined in the [facility] in the emergency room with BiPAP mask on. She appears to be resting quietly does not appear to be in significant respiratory distress at this time. HEENT unremarkable. Neck is supple. She has no enlarged cervical lymph nodes. Chest exam decreased breath sounds throughout has rales at both bases. Neck veins are flat at 30?. Cardiac exam regular rhythm with no murmur gallop. Abdominal exam slightly distended no masses normal bowel sounds no tenderness. Calves are nontender. She does have +1 pedal edema. Neuro exam is physiologic Objective Labs Result Diagrams: 05/25/19 02:01 05/25/19 02:01 Labs: Laboratory Results - last 24 hr 05/25/19 05/25/19 05/25/19 02:01 02:01 02:01 WBC 24.5 H RBC 5.06 Hgb 14.5 Hct 44.3 MCV 87.5 MCH 28.6 MCHC 32.7 RDW 14.1 Plt Count 330 Neut % (Auto) 52.5 Lymph % (Auto) 38.2 [place] % (Auto) 6.7 Eos % (Auto) 1.8 L Baso % (Auto) 0.8 Neut # (Auto) 00286 H Lymph # (Auto) 9400 H [place] # (Auto) 1600 H Eos # (Auto) 500 H Baso # (Auto) 200 H PT 12.3 INR 1.1 APTT 26 L ABG pH ABG pCO2 ABG pO2 ABG HCO3 ABG Total CO2 ABG O2 Saturation ABG Base Excess FiO2 Sodium 139 Potassium 4.0 Chloride 102 Carbon Dioxide 20 L BUN 16 Creatinine 0.80 Estimated GFR > 60.0 BUN/Creatinine Ratio 20.0 Glucose 286 H Lactate Calcium 9.7 Magnesium 2.2 Total Bilirubin 0.8 AST 62 H ALT 27 Alkaline Phosphatase 188 H Total Creatine Kinase 899 H CK-MB (CK-2) 2.92 H CK-MB (CK-2) Rel Index 0.3 L Troponin I 0.036 H B-Natriuretic Peptide 1150 H Total Protein 7.6 Albumin 4.0 Globulin 3.6 Albumin/Globulin Ratio 1.1 Procalcitonin Urine Color Urine Appearance Urine pH Ur Specific Penrose Urine Protein Urine Glucose (UA) Urine Ketones Urine Occult Blood Urine Nitrate Urine Bilirubin Urine Urobilinogen Ur Leukocyte Esterase Urine RBC Urine WBC Ur Squamous Epith Cells Amorphous Sediment Urine Bacteria Ur Culture Indicated? Influenza A (RT-PCR) Influenza B (RT-PCR) 05/25/19 05/25/19 05/25/19 02:01 02:10 02:12 WBC RBC Hgb Hct MCV MCH MCHC RDW Plt Count Neut % (Auto) Lymph % (Auto) [place] % (Auto) Eos % (Auto) Baso % (Auto) Neut # (Auto) Lymph # (Auto) [place] # (Auto) Eos # (Auto) Baso # (Auto) PT INR APTT ABG pH ABG pCO2 ABG pO2 ABG HCO3 ABG Total CO2 ABG O2 Saturation ABG Base Excess FiO2 Sodium Potassium Chloride Carbon Dioxide BUN Creatinine Estimated GFR BUN/Creatinine Ratio Glucose Lactate 3.3 H Calcium Magnesium Total Bilirubin AST ALT Alkaline Phosphatase Total Creatine Kinase CK-MB (CK-2) CK-MB (CK-2) Rel Index Troponin I B-Natriuretic Peptide Total Protein Albumin Globulin Albumin/Globulin Ratio Procalcitonin < 0.05 Urine Color Yellow Urine Appearance Clear Urine pH 5.0 Ur Specific Penrose 1.015 Urine Protein 2+ H Urine Glucose (UA) Negative Urine Ketones Negative Urine Occult Blood Trace-intact Urine Nitrate Negative Urine Bilirubin Negative Urine Urobilinogen 0.2 Ur Leukocyte Esterase Negative Urine RBC 0-1/hpf Urine WBC None seen Ur Squamous Epith Cells 0-1 /hpf Amorphous Sediment 2+ Urine Bacteria Occasional (0-1) Ur Culture Indicated? Cult not indicated Influenza A (RT-PCR) Influenza B (RT-PCR) 05/25/19 05/25/19 02:27 04:38 WBC RBC Hgb Hct MCV MCH MCHC RDW Plt Count Neut % (Auto) Lymph % (Auto) [place] % (Auto) Eos % (Auto) Baso % (Auto) Neut # (Auto) Lymph # (Auto) [place] # (Auto) Eos # (Auto) Baso # (Auto) PT INR APTT ABG pH 7.39 ABG pCO2 34.7 L ABG pO2 172 H ABG HCO3 21 L ABG Total CO2 22 ABG O2 Saturation 100 ABG Base Excess -4.0 L FiO2 0.60 Sodium Potassium Chloride Carbon Dioxide BUN Creatinine Estimated GFR BUN/Creatinine Ratio Glucose Lactate Calcium Magnesium Total Bilirubin AST ALT Alkaline Phosphatase Total Creatine Kinase CK-MB (CK-2) CK-MB (CK-2) Rel Index Troponin I B-Natriuretic Peptide Total Protein Albumin Globulin Albumin/Globulin Ratio Procalcitonin Urine Color Urine Appearance Urine pH Ur Specific Penrose Urine Protein Urine Glucose (UA) Urine Ketones Urine Occult Blood Urine Nitrate Urine Bilirubin Urine Urobilinogen Ur Leukocyte Esterase Urine RBC Urine WBC Ur Squamous Epith Cells Amorphous Sediment Urine Bacteria Ur Culture Indicated? Influenza A (RT-PCR) Flu a negative Influenza B (RT-PCR) Flu b negative labs as above is noted. Of significance of the following elevated white blood cell count count an elevated lactic acid level, troponin is intermediate BNP 150 chest x-ray consistent with the bilateral pneumonia and CHF Assessment & Plan Assessment & Plan narrative: 1. Acute on chronic respiratory failure. Placed is on BiPAP now her arterial blood gases seem reasonable at the current status. He the BiPAP will when she be titrated down to nasal cannula as per respiratory therapy. 2. acute on chronic systolic congestive heart failure. Patient will is on baseline Lasix but will switch her to IV Lasix 40 mg twice a day. 3. bilateral infiltrates consistent with bilateral pneumonia. Patient receiving IV azithromycin and Rocephin for same. 4. insulin dependent diabetes historically reasonably well controlled. Will decrease her basal insulin to 20 units today and perhaps tomorrow with the sliding scale for coverage. 5. Unclear history of atrial fibrillation in sinus rhythm now. 6 Lactate elevated to be repeated as per protocol. 7. elevated troponin to be followed up on echocardiogram ordered. . 8. History of hypothyroidism on maintenance therapy 9. Dr. Grubbs to assume care today
--- NOTE | 2019-05-25 07:28 | PC.ADMIT ---
[facility] 2123 Admission Note: The patient,Batsheva Burgess,78 y/o, was given written information regarding hospital policies, unit procedures and contact persons. Patient's smoking status: Former smoker. Vital Signs - 8 hr 05/25/19 01:50 05/25/19 02:00 05/25/19 02:05 Temperature 96.8 F L 96.8 F L Pulse Rate 93 H 128 H 97 H Respiratory Rate 46 H 45 H 41 H Blood Pressure 200/100 H 200/100 H Blood Pressure [Left Arm] 200/102 H 189/90 H Pulse Oximetry 95 73 L 99 05/25/19 02:10 05/25/19 02:20 05/25/19 02:30 Temperature Pulse Rate 93 H 96 H 98 H Respiratory Rate 46 H 37 H 49 H Blood Pressure Blood Pressure [Left Arm] 193/94 H 190/107 H 182/99 H Pulse Oximetry 95 96 97 05/25/19 02:40 05/25/19 02:50 05/25/19 03:02 Temperature Pulse Rate 105 H 98 H 96 H Respiratory Rate 38 H 37 H Blood Pressure Blood Pressure [Left Arm] 164/80 H 142/72 H Pulse Oximetry 98 98 97 05/25/19 03:10 05/25/19 03:20 05/25/19 03:32 Temperature Pulse Rate 96 H 93 H 92 H Respiratory Rate 36 H 39 H 30 H Blood Pressure Blood Pressure [Left Arm] 143/68 H 137/63 136/65 Pulse Oximetry 97 97 98 05/25/19 03:47 05/25/19 04:04 05/25/19 04:30 Temperature Pulse Rate 96 H 90 96 H Respiratory Rate 33 H 32 H 24 Blood Pressure Blood Pressure [Left Arm] 141/66 H 128/80 142/73 H Pulse Oximetry 98 98 99 05/25/19 05:05 05/25/19 05:36 05/25/19 06:45 Temperature 97.8 F Pulse Rate 85 79 Respiratory Rate 19 30 H Blood Pressure 152/76 H 152/76 H 144/70 H Blood Pressure [Left Arm] Pulse Oximetry 94 95 Patient admitted to ICU at 0505, oriented and conversant, mild shortness of breath, denies dyspnea, RR 30s, SpO2 >94% on 3L. Staff attempt to place Bi-pap on x2, but patient begins coughing and refuses to wear it. She says I will tell the doctor myself why I don't want it. Resting calmly with HOB elevated. SR, BBB. Antoine putting out large amount of pale yellow urine. See assessment notes.
[2019-05-25 07:36] LABS: BUN Creatinine Ratio 21.4 (6-22); Blood Urea Nitrogen 15 mg/dL (7-17); Calcium 8.9 mg/dL (8.4-10.2); Carbon Dioxide 25 mmol/L (22-32); Chloride 102 mmol/L (98-107); Estimated Glomerular Filt Rate > 60.0 mL/min (>60); Glucose 278 mg/dL (80-110); HEMOLYSIS < 15 (0-50); Magnesium 1.8 mg/dL (1.6-2.3); Potassium 3.2 mmol/L (3.4-5.1); Sodium 137 mmol/L (137-145)
[2019-05-25 08:14] LABS: Troponin I 0.139 ng/mL (0.01-0.034)
[2019-05-25] MEDS: OXYBUTYNIN 5 MG ER TAB PO (09:33)
[2019-05-25] MEDS: carvediloL 6.25 MG TABLET PO ×2 (09:33→17:30)
[2019-05-25] MEDS: INSULIN ASPART 100 UNIT/ML INSULN PEN SUBCUT ×3 (09:35→16:38)
[2019-05-25] MEDS: SODIUM CHLORIDE 0.9% FLUSH 10 ML IV ×2 (09:46→21:25)
--- NOTE | 2019-05-25 09:51 | PC.NURSE ---
Addendum entered by Caitlin Lopez R.N. 05/25/19 15:57: 1300-Lengthy discusssion about Pt POC, education provided verbally and written, Pt is reflective after visit from close friend, oriental orthodox elder. I don't think I need to worry about what is to come, I know I will be ok, even if it is in the afterlife. Pt declines transfer to [facility] for cardiac work up with EF of 20% Pt declines to have heparin started, education for risks and benefits. Discussed code status, after update of critical trop to Dr grubbs @ 2285. Pt would like to remain a full code at this time, verbalizes understanding that withholding treatment, heparin gtt, ect, may result in poor outcomes, and Pt continues to verbalize no blood products per belief. Addendum entered by Caitlin Lopez R.N. 05/25/19 11:24: Echo completed at bedside, tech reports significantly decreased EF, passed along to Dr Grubbs Original Note: Am shift Pt A/o x3, talkative, expressing frustration with held breakfast. Call into Dr Grubbs with request for orders and critical trop level. Ekg order obtained, done at bedside. IV SL, SBA to BSC, stooling, per usual. Antoine cath in place, Tele in place. Pt denies CP at present. Echo this AM. [id number]-Dr Grubbs into see Pt.
[2019-05-25] MEDS: ONDANSETRON 4 MG/2 ML INJ (10:00)
[2019-05-25 11:07] LABS: Lactate (Lactic Acid) 1.2 mmol/L (0.7-2.1)
[2019-05-25 11:28] LABS: Troponin I 0.162 ng/mL (0.01-0.034)
[2019-05-25] MEDS: INSULIN GLARGINE 100 UNIT/ML 3ML PEN 20 UNIT SUBCUT ×2 (12:45→15:51)
[2019-05-25] MEDS: LOSARTAN 50 MG TABLET PO (13:00)
--- NOTE | 2019-05-25 13:38 | PM.PN.1 ---
Subjective Subjective Date Patient Seen: 05/25/19 Time Patient Seen: 09:45 Interval history: Pt reports that her breathing is significantly improved, she is now off BiPAP and on 4L of oxygen. She states that she had no significant chest pain prior to her hospitalization, just pain that she associated with coughing. In talking with her and her , they report that she had an episode of CHF approximately 10 years ago, when she was transferred to [facility]. She had a heart cath at that time that did not show any occlusions. She does not recall being told what her EF was at that time. She takes 2 different heart supplements currently, and her prescribed medications. She sometimes has a hard time keeping track of her pills. Exam Vital Signs (past 8 hours): - 05/25/19 06:45 05/25/19 07:00 05/25/19 08:00 Temperature 98.1 F Pulse Rate 79 81 81 Respiratory Rate 30 H 23 26 H Blood Pressure 144/70 H 149/68 H 136/73 Pulse Oximetry 95 95 96 05/25/19 09:00 05/25/19 10:00 05/25/19 11:00 Temperature 98.7 F Pulse Rate 77 78 92 H Respiratory Rate 20 18 27 H Blood Pressure 148/65 H 132/82 145/82 H Pulse Oximetry 96 97 97 05/25/19 12:00 05/25/19 13:00 Temperature Pulse Rate 76 83 Respiratory Rate 24 25 H Blood Pressure 106/77 106/77 Pulse Oximetry 96 94 Fraction of Inspired Oxygen 0.50 Oxygen Delivery Method Room Air Oxygen Flow Rate 4 Narrative Exam Narrative: Gen: NAD, sitting comfortably in bed, speaking easily in complete sentences CV: distant heart sounds, RRR, grade 2/6 systolic murmur Resp: decreased breath sounds throughout, crackles right lower lobe, no wheezing Ext: no edema Objective Labs Result Diagrams: 05/25/19 02:01 05/25/19 07:20 Labs: Laboratory Results - last 24 hr 05/25/19 05/25/19 05/25/19 02:01 02:01 02:01 WBC 24.5 H RBC 5.06 Hgb 14.5 Hct 44.3 MCV 87.5 MCH 28.6 MCHC 32.7 RDW 14.1 Plt Count 330 Neut % (Auto) 52.5 Lymph % (Auto) 38.2 [place] % (Auto) 6.7 Eos % (Auto) 1.8 L Baso % (Auto) 0.8 Neut # (Auto) 90631 H Lymph # (Auto) 9400 H [place] # (Auto) 1600 H Eos # (Auto) 500 H Baso # (Auto) 200 H PT 12.3 INR 1.1 APTT 26 L ABG pH ABG pCO2 ABG pO2 ABG HCO3 ABG Total CO2 ABG O2 Saturation ABG Base Excess FiO2 Sodium 139 Potassium 4.0 Chloride 102 Carbon Dioxide 20 L BUN 16 Creatinine 0.80 Estimated GFR > 60.0 BUN/Creatinine Ratio 20.0 Glucose 286 H Lactate Calcium 9.7 Magnesium 2.2 Total Bilirubin 0.8 AST 62 H ALT 27 Alkaline Phosphatase 188 H Total Creatine Kinase 899 H CK-MB (CK-2) 2.92 H CK-MB (CK-2) Rel Index 0.3 L Troponin I 0.036 H B-Natriuretic Peptide 1150 H Total Protein 7.6 Albumin 4.0 Globulin 3.6 Albumin/Globulin Ratio 1.1 Procalcitonin Urine Color Urine Appearance Urine pH Ur Specific [place] Urine Protein Urine Glucose (UA) Urine Ketones Urine Occult Blood Urine Nitrate Urine Bilirubin Urine Urobilinogen Ur Leukocyte Esterase Urine RBC Urine WBC Ur Squamous Epith Cells Amorphous Sediment Urine Bacteria Ur Culture Indicated? Nasal Screen MRSA (PCR) Influenza A (RT-PCR) Influenza B (RT-PCR) 05/25/19 05/25/19 05/25/19 02:01 02:10 02:12 WBC RBC Hgb Hct MCV MCH MCHC RDW Plt Count Neut % (Auto) Lymph % (Auto) [place] % (Auto) Eos % (Auto) Baso % (Auto) Neut # (Auto) Lymph # (Auto) [place] # (Auto) Eos # (Auto) Baso # (Auto) PT INR APTT ABG pH ABG pCO2 ABG pO2 ABG HCO3 ABG Total CO2 ABG O2 Saturation ABG Base Excess FiO2 Sodium Potassium Chloride Carbon Dioxide BUN Creatinine Estimated GFR BUN/Creatinine Ratio Glucose Lactate 3.3 H Calcium Magnesium Total Bilirubin AST ALT Alkaline Phosphatase Total Creatine Kinase CK-MB (CK-2) CK-MB (CK-2) Rel Index Troponin I B-Natriuretic Peptide Total Protein Albumin Globulin Albumin/Globulin Ratio Procalcitonin < 0.05 Urine Color Yellow Urine Appearance Clear Urine pH 5.0 Ur Specific [place] 1.015 Urine Protein 2+ H Urine Glucose (UA) Negative Urine Ketones Negative Urine Occult Blood Trace-intact Urine Nitrate Negative Urine Bilirubin Negative Urine Urobilinogen 0.2 Ur Leukocyte Esterase Negative Urine RBC 0-1/hpf Urine WBC None seen Ur Squamous Epith Cells 0-1 /hpf Amorphous Sediment 2+ Urine Bacteria Occasional (0-1) Ur Culture Indicated? Cult not indicated Nasal Screen MRSA (PCR) Influenza A (RT-PCR) Influenza B (RT-PCR) 05/25/19 05/25/19 05/25/19 02:27 04:38 05:03 WBC RBC Hgb Hct MCV MCH MCHC RDW Plt Count Neut % (Auto) Lymph % (Auto) [place] % (Auto) Eos % (Auto) Baso % (Auto) Neut # (Auto) Lymph # (Auto) [place] # (Auto) Eos # (Auto) Baso # (Auto) PT INR APTT ABG pH 7.39 ABG pCO2 34.7 L ABG pO2 172 H ABG HCO3 21 L ABG Total CO2 22 ABG O2 Saturation 100 ABG Base Excess -4.0 L FiO2 0.60 Sodium Potassium Chloride Carbon Dioxide BUN Creatinine Estimated GFR BUN/Creatinine Ratio Glucose Lactate 3.0 H Calcium Magnesium Total Bilirubin AST ALT Alkaline Phosphatase Total Creatine Kinase CK-MB (CK-2) CK-MB (CK-2) Rel Index Troponin I B-Natriuretic Peptide Total Protein Albumin Globulin Albumin/Globulin Ratio Procalcitonin Urine Color Urine Appearance Urine pH Ur Specific [place] Urine Protein Urine Glucose (UA) Urine Ketones Urine Occult Blood Urine Nitrate Urine Bilirubin Urine Urobilinogen Ur Leukocyte Esterase Urine RBC Urine WBC Ur Squamous Epith Cells Amorphous Sediment Urine Bacteria Ur Culture Indicated? Nasal Screen MRSA (PCR) Influenza A (RT-PCR) Flu a negative Influenza B (RT-PCR) Flu b negative 05/25/19 05/25/19 05/25/19 05:45 07:20 10:50 WBC RBC Hgb Hct MCV MCH MCHC RDW Plt Count Neut % (Auto) Lymph % (Auto) [place] % (Auto) Eos % (Auto) Baso % (Auto) Neut # (Auto) Lymph # (Auto) [place] # (Auto) Eos # (Auto) Baso # (Auto) PT INR APTT ABG pH ABG pCO2 ABG pO2 ABG HCO3 ABG Total CO2 ABG O2 Saturation ABG Base Excess FiO2 Sodium 137 Potassium 3.2 L Chloride 102 Carbon Dioxide 25 BUN 15 Creatinine 0.70 Estimated GFR > 60.0 BUN/Creatinine Ratio 21.4 Glucose 278 H Lactate Calcium 8.9 Magnesium 1.8 Total Bilirubin AST ALT Alkaline Phosphatase Total Creatine Kinase CK-MB (CK-2) CK-MB (CK-2) Rel Index Troponin I 0.139 H* 0.162 H* B-Natriuretic Peptide Total Protein Albumin Globulin Albumin/Globulin Ratio Procalcitonin Urine Color Urine Appearance Urine pH Ur Specific [place] Urine Protein Urine Glucose (UA) Urine Ketones Urine Occult Blood Urine Nitrate Urine Bilirubin Urine Urobilinogen Ur Leukocyte Esterase Urine RBC Urine WBC Ur Squamous Epith Cells Amorphous Sediment Urine Bacteria Ur Culture Indicated? Nasal Screen MRSA (PCR) Negative for mrsa Influenza A (RT-PCR) Influenza B (RT-PCR) 05/25/19 10:50 WBC RBC Hgb Hct MCV MCH MCHC RDW Plt Count Neut % (Auto) Lymph % (Auto) [place] % (Auto) Eos % (Auto) Baso % (Auto) Neut # (Auto) Lymph # (Auto) [place] # (Auto) Eos # (Auto) Baso # (Auto) PT INR APTT ABG pH ABG pCO2 ABG pO2 ABG HCO3 ABG Total CO2 ABG O2 Saturation ABG Base Excess FiO2 Sodium Potassium Chloride Carbon Dioxide BUN Creatinine Estimated GFR BUN/Creatinine Ratio Glucose Lactate 1.2 Calcium Magnesium Total Bilirubin AST ALT Alkaline Phosphatase Total Creatine Kinase CK-MB (CK-2) CK-MB (CK-2) Rel Index Troponin I B-Natriuretic Peptide Total Protein Albumin Globulin Albumin/Globulin Ratio Procalcitonin Urine Color Urine Appearance Urine pH Ur Specific [place] Urine Protein Urine Glucose (UA) Urine Ketones Urine Occult Blood Urine Nitrate Urine Bilirubin Urine Urobilinogen Ur Leukocyte Esterase Urine RBC Urine WBC Ur Squamous Epith Cells Amorphous Sediment Urine Bacteria Ur Culture Indicated? Nasal Screen MRSA (PCR) Influenza A (RT-PCR) Influenza B (RT-PCR) Assessment & Plan Assessment & Plan narrative: 78 year old woman with insulin-dependent type 2 DM, HTN, hypothyroidism, and reported hx of CHF who presented with acute respiratory failure due to pneumonia and CHF exacerbation. Respiratory status significantly improved, now on NC from BiPAP. Troponin noted to be rising significantly. Cardiology contacted, who recommended Heparin drip. Echo completed showed severely reduced EF of 20-25% with global hypokinesis, down from 50% EF in 2008. After discussion with Dr Dickey, recommendation for transfer to [facility] for possible angio vs other interventions in light of severe EF reduction, hypokinesis, and rising troponin. Discussed with the pt in detail, who declined transfer. She is aware of the risks of medical management, but is not currently interested in pursuing more aggressive forms of treatment. The pt will stay at [facility], and we will attempt to optimize medical management, with the guidance of Cardiology. Appreciate recommendations from Dr Dickey, who also recommended discussion with [employer] present in [place] tomorrow to see if they can see the pt in the hospital. - Continue Heparin for 24-48hrs - 10mg Hydralazine TID with goal SBP < 120, and MAP 70-80 - Can increase dose Losartan at d/c and hopefully d/c Hydralazine at that time - 25mg Spirinolactone daily - Continue Carvedilol, Losartan - Continue aggressive diuresis until euvolemic - Will plan to repeat BNP in the AM, potentially CXR dependent on respiratory status Time Spent With Patient Time with patient: Greater than 35 minutes Quality VTE Deep Vein Thrombosis/Pulmonary Embolism Present on Admission: No
[2019-05-25] MEDS: ONDANSETRON 4 MG/2 ML INJ IV (13:42)
[2019-05-25] MEDS: SPIRONOLACTONE 25 MG TABLET PO (15:33)
[2019-05-25] MEDS: BENZONATATE 100 MG CAPSULE PO (15:47)
--- NOTE | 2019-05-25 15:57 | CM.DANOTE ---
Patient is an 78 year old female who was admitted today 05/25/19 for SOB. Pt has [employer] MCR for insurance and her PCP is Dr. Castro. EMR was reviewed. Per MD, pt's Echo results came back poorly and MD discussed hospital transfer with pt and spouse but pt currently declines Stent and hospital transfer. Pt weak and PT/OT ordered and pending. SW met bedside with pt and spouse and explained role and they confirm that they live by [facility] in their [place] and are on a fixed income. Pt has two adult Dtrs who provide some assist regularly with washing their laundry and helping when needed. Pt has a remote hx of SNF rehab at [facility] when they did rehab and denies any hx of HH. SW discussed possible need for SNF pending progress and PT eval and pt states she feels that she needs SNF at d/c as spouse is her primary CG and pt has increased needs over the past few months. Discussed need for SNF auth from insurance and provided SNF Choice List and that [facility] no longer provides rehab and pt agreeable to referral made to [facility]. SW also provided spouse with the Medicaid application as they discussed likely higher care needs in the near future and limited income. Spouse appreciative of the information and application. SW called [facility] admissions and left msg requesting review and need for insurance auth and faxed clinicals to review. Plan: SW to follow closely after PT eval and further discussion with pt and spouse regarding recommendation for hospital transfer to determine rehab vs maybe comfort if needed at this time. SW to follow for return call from [facility]elfinaParud[facility]. JEMAL Bean Discharge Planning/Care Management CM Discharge Assessment Start: 05/25/19 15:55 Freq: Status: Active Protocol: Document 05/25/19 15:55 BF (Rec: 05/25/19 15:57 BF [id number]) Discharge Planning Assessment Assigned Management Department Chair RYAN Lamb DPOA/Assigned Designee Name Spouse and adult children Advance Directives? Yes Advance Directives on File Yes History Provided By Patient,Significant Other, Medical Record Has Patient been admitted in last 30 No days? Prior Living Arrangements RV Household Members spouse Type of transporation used prior to Relies on Others admit Independent with ADL's No Is patient alert and oriented? Yes Needs Assistance With Bathing,Meal Prep,Managing Medications,Home Chores / Shopping Caregiver for Another No Patient/Family Preference Alf Facility Discharge Plan Alf Facility Transportation Arrangement Facility van if SNF at d/c Referrals Initiated Alf Medicare Choice List Provided Yes SNF/HH Preference [facility] as they are contracted with [facility] Has Agency SNF been contacted Yes Whiteboard Updated in Patient Room with Yes name and ext. # of Management Department Chair Review Status In Process Please Provide Date Initial DC 05/25/19 Assessment Was Performed Next Review Type Continued Stay Review
[2019-05-25] MEDS: ACETAMINOPHEN 325 MG TABLET 650 MG PO (19:32)
[2019-05-25 21:19] LABS: Troponin I 0.138 ng/mL (0.01-0.034)
[2019-05-25] MEDS: HYDRALAZINE 10 MG TABLET PO (21:24)
[2019-05-26] VITALS (14 sets, daily range): BP systolic 90–144; BP diastolic 49–86; PULSE 63–147; RESP 14–26; TEMP 36.8–37.4; O2SAT 91–98
[2019-05-26] MEDS: dilTIAZem 5 MG/ML SDV 10 MG IV (00:30)
[2019-05-26] MEDS: POTASSIUM CHLORIDE 20 MEQ TAB 40 MEQ PO (00:47)
[2019-05-26 00:53] LABS: Phosphorous 3.2 mg/dL (2.8-4.1)
[2019-05-26] MEDS: DILTIAZEM 125 MG/125 ML PIGGYBACK IV (00:57)
[2019-05-26] MEDS: POTASSIUM CHLORIDE 40 MEQ in SODIUM CHLORIDE 0.9% 500 ML 130 ML IV (01:09)
--- NOTE | 2019-05-26 01:26 | PC.NURSE ---
Addendum entered by Diana Garner R.N. 05/26/19 02:32: *Amendment: Rapid Response Called at 00:20 Original Note: @00:30: RAPID RESPONSE Pt became confused and removed IV; HR 130s, Tele monitor looked like V-tach but EKG taken showing Afib RVR; Pt denies chest pain; BP stable. Rapid Response Called. Dr. Houser came to assess patient and Dr. Grubbs was called and notified and spoke on phone to Dr. Houser; 2 New IVs inserted. Blood sugar taken 143; Oxygen increased from 4L NC to 6L NC. Potassium PO and IV ordered and given. IVP Cardizem given; Diltiazem drip started; Care of patient transferred over to [facility]
--- NOTE | 2019-05-26 02:32 | P.PN_ITS ---
Subjective Subjective Date Patient Seen: 05/26/19 Time Patient Seen: 02:00 Interval history: Contacted by nursing due to the pt having a rapid response called for tachycardia. Found to be in atrial fibrillation with RVR, HR in the 150s. Dr Houser from the ED was present. Given 10mg IV Diltiazem, with decrease in HR to the 110-120s. Then was started on IV Diltiazem drip, currently at 5mg/hr. The pt was then very altered. She was shown to be hypotensive with BP down to 88/58 with MAP of 71, then 90/51 with MAP 62. The pt then refused further blood pressure checks. She was trying to get out of bed, pulling at IV lines, and removing her NC oxygen. Her HR was in the 120- 130s up to 140s when more agitated. The pts , Ryan, was contacted, and arrived at the hospital, in addition to her daughters who are her DPOA. We discussed treatment options, including attempted continued medical management, cardioversion, or comfort care (which was not recommended at this time). Discussed that the pts confusion was likely due to poor cerebral perfusion from hypotension as a result of her tachycardia and EF of 20-25%. The pts daughters elected to have the pt undergo cardioversion. We also discussed the pts code status, and poor prognosis if CPR were to be performed due to her baseline poor heart function. They elected to transition the pt to DNR status. Exam Vital Signs (past 8 hours): - 05/25/19 19:46 05/25/19 21:24 05/25/19 23:40 Temperature 99.2 F 99.7 F H Pulse Rate 75 63 70 Respiratory Rate 22 11 L Blood Pressure 143/55 H 126/65 Pulse Oximetry 96 05/26/19 00:30 05/26/19 01:11 05/26/19 01:18 Temperature Pulse Rate 147 H 124 H 124 H Respiratory Rate 22 26 H Blood Pressure 144/86 H 90/51 L Pulse Oximetry 92 94 Fraction of Inspired Oxygen 0.50 Oxygen Delivery Method Nasal Cannula Oxygen Flow Rate 6 Objective Labs Result Diagrams: 05/25/19 02:01 05/25/19 07:20 Labs: Laboratory Results - last 24 hr 05/25/19 05/25/19 05/25/19 02:01 02:01 02:01 ABG pH ABG pCO2 ABG pO2 ABG HCO3 ABG Total CO2 ABG O2 Saturation ABG Base Excess FiO2 Sodium Potassium Chloride Carbon Dioxide BUN Creatinine Estimated GFR BUN/Creatinine Ratio Glucose Lactate Calcium Phosphorus Magnesium CK-MB (CK-2) 2.92 H CK-MB (CK-2) Rel Index 0.3 L Troponin I 0.036 H B-Natriuretic Peptide 1150 H Procalcitonin < 0.05 Urine Color Urine Appearance Urine pH Ur Specific [place] Urine Protein Urine Glucose (UA) Urine Ketones Urine Occult Blood Urine Nitrate Urine Bilirubin Urine Urobilinogen Ur Leukocyte Esterase Urine RBC Urine WBC Ur Squamous Epith Cells Amorphous Sediment Urine Bacteria Ur Culture Indicated? Nasal Screen MRSA (PCR) Influenza A (RT-PCR) Influenza B (RT-PCR) 05/25/19 05/25/19 05/25/19 02:10 02:12 02:27 ABG pH ABG pCO2 ABG pO2 ABG HCO3 ABG Total CO2 ABG O2 Saturation ABG Base Excess FiO2 Sodium Potassium Chloride Carbon Dioxide BUN Creatinine Estimated GFR BUN/Creatinine Ratio Glucose Lactate 3.3 H Calcium Phosphorus Magnesium CK-MB (CK-2) CK-MB (CK-2) Rel Index Troponin I B-Natriuretic Peptide Procalcitonin Urine Color Yellow Urine Appearance Clear Urine pH 5.0 Ur Specific [place] 1.015 Urine Protein 2+ H Urine Glucose (UA) Negative Urine Ketones Negative Urine Occult Blood Trace-intact Urine Nitrate Negative Urine Bilirubin Negative Urine Urobilinogen 0.2 Ur Leukocyte Esterase Negative Urine RBC 0-1/hpf Urine WBC None seen Ur Squamous Epith Cells 0-1 /hpf Amorphous Sediment 2+ Urine Bacteria Occasional (0-1) Ur Culture Indicated? Cult not indicated Nasal Screen MRSA (PCR) Influenza A (RT-PCR) Flu a negative Influenza B (RT-PCR) Flu b negative 05/25/19 05/25/19 05/25/19 04:37 05:03 05:45 ABG pH 7.39 ABG pCO2 34.7 L ABG pO2 172 H ABG HCO3 21 L ABG Total CO2 22 ABG O2 Saturation 100 ABG Base Excess -4.0 L FiO2 0.60 Sodium Potassium Chloride Carbon Dioxide BUN Creatinine Estimated GFR BUN/Creatinine Ratio Glucose Lactate 3.0 H Calcium Phosphorus Magnesium CK-MB (CK-2) CK-MB (CK-2) Rel Index Troponin I B-Natriuretic Peptide Procalcitonin Urine Color Urine Appearance Urine pH Ur Specific [place] Urine Protein Urine Glucose (UA) Urine Ketones Urine Occult Blood Urine Nitrate Urine Bilirubin Urine Urobilinogen Ur Leukocyte Esterase Urine RBC Urine WBC Ur Squamous Epith Cells Amorphous Sediment Urine Bacteria Ur Culture Indicated? Nasal Screen MRSA (PCR) Negative for mrsa Influenza A (RT-PCR) Influenza B (RT-PCR) 05/25/19 05/25/19 05/25/19 07:20 10:50 10:50 ABG pH ABG pCO2 ABG pO2 ABG HCO3 ABG Total CO2 ABG O2 Saturation ABG Base Excess FiO2 Sodium 137 Potassium 3.2 L Chloride 102 Carbon Dioxide 25 BUN 15 Creatinine 0.70 Estimated GFR > 60.0 BUN/Creatinine Ratio 21.4 Glucose 278 H Lactate 1.2 Calcium 8.9 Phosphorus Magnesium 1.8 CK-MB (CK-2) CK-MB (CK-2) Rel Index Troponin I 0.139 H* 0.162 H* B-Natriuretic Peptide Procalcitonin Urine Color Urine Appearance Urine pH Ur Specific [place] Urine Protein Urine Glucose (UA) Urine Ketones Urine Occult Blood Urine Nitrate Urine Bilirubin Urine Urobilinogen Ur Leukocyte Esterase Urine RBC Urine WBC Ur Squamous Epith Cells Amorphous Sediment Urine Bacteria Ur Culture Indicated? Nasal Screen MRSA (PCR) Influenza A (RT-PCR) Influenza B (RT-PCR) 05/25/19 05/25/19 20:37 20:37 ABG pH ABG pCO2 ABG pO2 ABG HCO3 ABG Total CO2 ABG O2 Saturation ABG Base Excess FiO2 Sodium Potassium Chloride Carbon Dioxide BUN Creatinine Estimated GFR BUN/Creatinine Ratio Glucose Lactate Calcium Phosphorus 3.2 Magnesium CK-MB (CK-2) CK-MB (CK-2) Rel Index Troponin I 0.138 H* B-Natriuretic Peptide Procalcitonin Urine Color Urine Appearance Urine pH Ur Specific [place] Urine Protein Urine Glucose (UA) Urine Ketones Urine Occult Blood Urine Nitrate Urine Bilirubin Urine Urobilinogen Ur Leukocyte Esterase Urine RBC Urine WBC Ur Squamous Epith Cells Amorphous Sediment Urine Bacteria Ur Culture Indicated? Nasal Screen MRSA (PCR) Influenza A (RT-PCR) Influenza B (RT-PCR) Quality VTE Deep Vein Thrombosis/Pulmonary Embolism Present on Admission: No
--- NOTE | 2019-05-26 02:43 | PC.NURSE ---
Addendum entered by Caitlin Lopez R.N. 05/26/19 12:52: Pt wakes from nap and removes O2, Spo2 monitor and very agitated with staff intervention. Denies pain at present. Dr Grubbs at bedside, orders obtained for Ativan. Given 1 dose with good effect. Pt wakes in good spirits towards this RN. Forgetful. Able to make needs known, resting comfortably after Ativan dosing. Sleeping with monitors and O2 in place. Addendum entered by Caitlin Lopez R.N. 05/26/19 07:27: 0715-IV Dilt stopped, HR of 57 at rest. Pt has been restless, cooperative and redirectable. Antoine patent. Addendum entered by Caitlin Lopez R.N. 05/26/19 04:16: Assumed care of Pt, 0200, Pt remembers this RN from previous shift and is agreeable with care with husbands encouragement. HR 130's, denies CP. able to monitor infrequent BP with Pt frequently refusing. EKG confirmed NSR 70's Dilt @ 5mg/hr Addendum entered by Carlota Le R.N. 05/26/19 03:24: Preparation for cardioversion underway when patient spontaneously converted to SR with a HR in the 70's. BP 128/49 (83). Patient sitting up in bed in NAD. Remains confused but somewhat cooperative at this time. Dr. Grubbs remains in the unit and updated on changes. Original Note: Care assumed at 0020 after rapid response was called and patient was deemed in a rapid afib with acute confusion. Diltiazem IVP 10 mg given by NGUYEN Valladares from ER per verbal orders. Diltiazem GTT inititiated per orders at 5 mg/hour. BP stable at the time (see flowsheet). Patient has gradually become increasingly more confused and agitated. She will not allow oxygen administration nor BP monitoring. She attempts to kick at staff as well as attempting to get OOB and to leave. Security called to bedside at one point for assistance. Dr. Grubbs notified of changes and inability to properly care for patient in her current state. Dr. Grubbs at the bedside at 0155 to speak with patient and notify Ryan (patient's ). and daughters joined at bedside at 0235. Family conference regarding code status and possibility of cardioversion being had at this time. Care turned over to NGUYEN Tucker.
--- NOTE | 2019-05-26 03:34 | P.EN_ITS ---
Event Note Date Patient Seen: 05/26/19 Time Patient Seen: 02:00 Event Note: Contacted by nursing due to the pt having a rapid response called for tachycardia. Found to be in atrial fibrillation with RVR, HR in the 150s. Dr Houser from the ED was present. Given 10mg IV Diltiazem, with decrease in HR to the 110-120s. Then was started on IV Diltiazem drip, currently at 5mg/hr. The pt was then very altered. She was shown to be hypotensive with BP down to 88/58 with MAP of 71, then 90/51 with MAP 62. The pt then refused further blood pressure checks. She was trying to get out of bed, pulling at IV lines, and removing her NC oxygen. Her HR was in the 120-130s up to 140s when more agitated. The pts , Ryan, was contacted, and arrived at the hospital, in addition to her daughters who are her DPOA. We discussed treatment options, including attempted continued medical management, cardioversion, or comfort care (which was not recommended at this time). Discussed that the pts confusion was likely due to poor cerebral perfusion from hypotension as a result of her tach ycardia and EF of 20-25%. The pts daughters elected to have the pt undergo cardioversion. We also discussed the pts code status, and poor prognosis if CPR were to be performed due to her baseline poor heart function. They elected to transition the pt to DNR status. Prior to the cardioversion, the pt self- converted to sinus rhythm on her own, with a rate in the 70s. BP in the 120/40- 50s. EKG confirmed sinus rhythm, and otherwise no changes from prior EKG with a LBBB. The pt will continue to be monitored for arrhythmia, with plan for cardioversion if she enters into atrial fibrillation with RVR again.
[2019-05-26] MEDS: ACETAMINOPHEN 325 MG TABLET 650 MG PO ×3 (03:46→21:45)
[2019-05-26 05:18] LABS: Alanine Aminotransferase 23 IU/L (<35); Albumin 3.2 g/dL (3.5-5.0); Albumin Globulin Ratio 1.1 (1.0-2.8); Alkaline Phosphatase 133 U/L (38-126); Aspartate Aminotransferase 39 IU/L (14-36); BUN Creatinine Ratio 23.8 (6-22); Bilirubin Total 0.6 mg/dL (0.2-1.3); Blood Urea Nitrogen 19 mg/dL (7-17); Calcium 8.6 mg/dL (8.4-10.2); Carbon Dioxide 26 mmol/L (22-32); Chloride 104 mmol/L (98-107); Estimated Glomerular Filt Rate > 60.0 mL/min (>60); Glucose 162 mg/dL (80-110); HEMOLYSIS < 15 (0-50); Potassium 4.8 mmol/L (3.4-5.1); Sodium 139 mmol/L (137-145); Total Protein 6.2 g/dL (6.3-8.2)
[2019-05-26 05:27] LABS: Add Manual Diff / Slide Review NO; Basophils Absolute Auto 100 /uL (0-100); Basophils Percent Auto 0.7 % (0-2); Eosinophils Absolute Auto 200 /uL (0-450); Eosinophils Percent Auto 1.6 % (2-4); Hematocrit 38.2 % (36-46); Hemoglobin 12.8 g/dL (12.0-16.0); Lymphocytes Absolute Auto 1900 /uL (1100-4500); Lymphocytes Percent Auto 15.5 % (25-40); Mean Corpuscular HGB Conc 33.5 % (30-36); Mean Corpuscular Hemoglobin 28.6 PG (26-34); Mean Corpuscular Volume 85.4 fL (80-100); Monocytes Absolute Auto 1100 /uL (0-900); Neutrophils Absolute Auto 8800 /uL (1500-7000); Neutrophils Percent Auto 73.2 % (50-75); Platelet Count 252 X10^3/uL (150-400); Red Blood Cell Count 4.48 X10^6/uL (4.0-5.2); Red Cell Distribution Width 13.6 % (11.6-14.8)
[2019-05-26 06:00] LABS: B Type Natriuretic Peptide 571 (<100)
--- NOTE | 2019-05-26 06:05 | ED.CONSULT ---
ED Provider Consult/Code Note General Date Patient Seen: 05/26/19 Reason for Admission: difficulty breathing Events leading to Consult/Code: Patient has been admitted for heart failure. Is in the ICU. Was contacted to come to the ICU for rapid response for a new onset AFib with RVR and confusion. Cardiac Rhythm: Atrial fibrillation Additional: Rapid ventricular response Respiratory Auscultation: clear to auscultation bilaterally Lines Placed Other Lines: Patient did not have an IV at the time of my initial evaluation Care Provided Description of care provided: Arrive to evaluate patient. She was alert and oriented per my exam. She was in atrial fibrillation with a heart rate in the 140s to 160s. She did not have a line placed. I was told that this is because she pulled the line out. I asked that a line be placed. I reviewed her history and physical. Does appear that she does not have a history of atrial fibrillation. Is only on Coreg no other beta blockers are antiarrhythmic agents. GARLAND Edgar the hospitalist also arrived for evaluation. Nursing staff attempting to contact the patient's covering provider. Patient was not hypotensive. I did have a discussion with the patient's provider Dr. Mccall. We discussed the patient's condition. Patient was given 10 mg of Cardizem which potentially decreased her heart rate a small amount. She was then started on a Cardizem drip. The decision was made to initially rate control the patient. Her potassium and magnesium were replaced. I left further care to Dr mccall. Outcome Outcome: Care turned over to admitting provider
[2019-05-26] MEDS: CEFTRIAXONE 1 GM/50 ML FROZ.PIGGY IV ×2 (06:20→16:19)
[2019-05-26] MEDS: AZITHROMYCIN 250 MG in DEXTROSE 5% IN WATER 250 ML IV (07:22)
--- NOTE | 2019-05-26 09:02 | CM.DPC ---
Addendum entered by Lanie Butterfield LPN 05/27/19 16:55: Continuation of last 05/26 note: a check in today shows that pt remained in ICU but then this afternoon did move to acute care floor and is now in room 210. Meeting with pt's Ryan yesterday revealed that pt is far from her mental baseline and the family is unsure what the plan will be going forward. He says that his wanted their daughers to be POA and he does defer to them although he is the primary caregiver for her at the home setting. They live in an park and he does some work for the park and gets a bit off of the site rent. POA daughters are: Rina William: [phone] and Niya Miller: . Both live in [place]. Ryan did say that he is unsure why the local snf [facility] had not been considered (and have confirmed with that they contract with [employer]) but he planned to discuss this later with his daughters. Cardiology did consult 05/26 in afternoon and his note was reviewed today in Team Rounds. DCP: at this point is unclear. Pt has been quite agitated and combative. PT and OT have not yet been able o work with her. CM/DCP team will continue to follow and look to the physician team for direction going forward. Addendum entered by Lanie Butterfield LPN 05/26/19 16:08: Met at length with after brief meeting with POA Daughter Rina. Due to lateness of hour will continue this note in the morning. Pt is expected to move up to the acute care floor this evening, per pt's . Addendum entered by Lanie Butterfield LPN 05/26/19 15:29: Confirmed pt's family is currently with pt in ICU. Will meet them now. Addendum entered by Lanie Butterfield LPN 05/26/19 15:27: Have reviewed Dr. Grubbs's progress note from today and note that pt continues to be very confused and agitated and POC going forward is a bit unclear. Pt currently is not able to speak for herself. Original Note: DCP: continued: case received, EMR reviewed including CM/DCP assessment note. Followed up with a call to [facility]. She reports she is just looking at the referral now, will give it to her admission nurse to review and then if acceptable the team will start working on the insurance auth. She notes that she is unsure if Kerry, the admission discharge rn will be in today but she will talk with her when she is available. Event note of last night from Dr. Grubbs is reviewed and [facility] will fax this to [facility] to add to their information. Do not see that PT and OT have been ordered and it would also appear that pt has not been medically stable for this. P: will discuss in Team Rounds and follow as POC unfolds. It is noted that pt code status has now been changed to DNAR and that she will accept medical management including cardioversion. Will also look into a Plan B snf: have confirmed now in general discussion with [facility] that they do have beds, are contracted with [employer] (managed by [facility]) and that the snf auth is a simple and rapid process.
[2019-05-26] MEDS: LORazepam 2 MG/ML INJ 0.25 MG IV (09:32)
--- NOTE | 2019-05-26 09:43 | PM.PN.1 ---
Subjective Subjective Date Patient Seen: 05/26/19 Time Patient Seen: 08:30 Interval history: The pt this morning is quite combative and did not wish to speak with me. As per her , after the events of last night she was able to rest comfortably for much of the remainder of the night. She did not complain of any pain. She continued to cough frequently overnight. As per nursing, the pt was much more cooperative last night after her heart rate improved to the 60-70s. She was able to be talked with in a logical manner, although still resistant to some things (which her states is not unusual for her). They were able to wean her from the Diltiazem drip early this morning. This morning, the pt removed her oxygen and refused to put it back on. Within minutes, she was much more altered again, refusing a majority of her care. She was refusing to put her oxygen back on, get back into bed from the commode after BM. Exam Vital Signs (past 8 hours): - 05/26/19 03:26 Pulse Rate 80 Respiratory Rate 24 Blood Pressure 128/49 L Pulse Oximetry 93 Fraction of Inspired Oxygen 0.50 Oxygen Delivery Method Nasal Cannula Oxygen Flow Rate 6 Narrative Exam Narrative: Gen: laying in bed sleeping, intermittent wet-sounding cough, breathing comfortably CV: distant heart sounds, RRR, grade 2/6 systolic murmur Resp: coarse breath sounds throughout, crackles bilateral bases, no wheezing Abd: soft, nontender, nondistended Ext: no edema Neuro: unable to fully assess due to pt being unwilling to talk with me but moving all extremities, CN grossly intact, oriented to person and place but unable to assess situation or time Objective Labs Result Diagrams: 05/26/19 04:45 05/26/19 04:45 Labs: Laboratory Results - last 24 hr 05/25/19 05/25/19 05/25/19 04:37 10:50 10:50 WBC RBC Hgb Hct MCV MCH MCHC RDW Plt Count Neut % (Auto) Lymph % (Auto) Posey % (Auto) Eos % (Auto) Baso % (Auto) Neut # (Auto) Lymph # (Auto) Posey # (Auto) Eos # (Auto) Baso # (Auto) ABG pH 7.39 ABG pCO2 34.7 L ABG pO2 172 H ABG HCO3 21 L ABG Total CO2 22 ABG O2 Saturation 100 ABG Base Excess -4.0 L FiO2 0.60 Sodium Potassium Chloride Carbon Dioxide BUN Creatinine Estimated GFR BUN/Creatinine Ratio Glucose Lactate 1.2 Calcium Phosphorus Total Bilirubin AST ALT Alkaline Phosphatase Troponin I 0.162 H* B-Natriuretic Peptide Total Protein Albumin Globulin Albumin/Globulin Ratio 05/25/19 05/25/19 05/26/19 20:37 20:37 04:45 WBC 12.0 H D RBC 4.48 Hgb 12.8 Hct 38.2 MCV 85.4 MCH 28.6 MCHC 33.5 RDW 13.6 Plt Count 252 Neut % (Auto) 73.2 D Lymph % (Auto) 15.5 L D Posey % (Auto) 9.0 Eos % (Auto) 1.6 L Baso % (Auto) 0.7 Neut # (Auto) 8800 H Lymph # (Auto) 1900 Posey # (Auto) 1100 H Eos # (Auto) 200 Baso # (Auto) 100 ABG pH ABG pCO2 ABG pO2 ABG HCO3 ABG Total CO2 ABG O2 Saturation ABG Base Excess FiO2 Sodium Potassium Chloride Carbon Dioxide BUN Creatinine Estimated GFR BUN/Creatinine Ratio Glucose Lactate Calcium Phosphorus 3.2 Total Bilirubin AST ALT Alkaline Phosphatase Troponin I 0.138 H* B-Natriuretic Peptide 571 H Total Protein Albumin Globulin Albumin/Globulin Ratio 05/26/19 04:45 WBC RBC Hgb Hct MCV MCH MCHC RDW Plt Count Neut % (Auto) Lymph % (Auto) Posey % (Auto) Eos % (Auto) Baso % (Auto) Neut # (Auto) Lymph # (Auto) Posey # (Auto) Eos # (Auto) Baso # (Auto) ABG pH ABG pCO2 ABG pO2 ABG HCO3 ABG Total CO2 ABG O2 Saturation ABG Base Excess FiO2 Sodium 139 Potassium 4.8 D Chloride 104 Carbon Dioxide 26 BUN 19 H Creatinine 0.80 Estimated GFR > 60.0 BUN/Creatinine Ratio 23.8 H Glucose 162 H D Lactate Calcium 8.6 Phosphorus Total Bilirubin 0.6 AST 39 H ALT 23 Alkaline Phosphatase 133 H Troponin I B-Natriuretic Peptide Total Protein 6.2 L Albumin 3.2 L Globulin 3.0 Albumin/Globulin Ratio 1.1 Assessment & Plan Assessment & Plan narrative: 78 year old woman with insulin-dependent type 2 DM, HTN, hypothyroidism, and reported hx of CHF who presented with acute respiratory failure due to pneumonia and CHF exacerbation. Respiratory status improved after diuresis with Lasix and initiation of antibiotics, now on nasal canula. WBC count improved from 24 to 12. Due to Troponin rising yesterday, the pt was started on Heparin drip. Echo then showed EF 20-25% with global hypokinesis, down from 50% in 2008. Dr Dickey recommended transfer to [facility] for further care and possible intervention, but the pt declined transfer. After discussion with family and friends, the pt then decided to discontinue the Heparin drip. She did desire medical management of her CHF to maximize her life expectancy. Overnight, the pt went into atrial fibrillation with RVR. She developed hypotension and confusion. She was started on a Diltiazem drip. Cardioversion was discussed, but the pt converted to sinus rhythm prior to it being completed. Her confusion improved somewhat after her BP improved and HR remained in sinus. 1) Altered mental status: Pt does keep removing her oxygen, which has been precipitating confusion episodes. Do question if she could have had a cerebral event as well. - Ativan 0.25mg q2hr PRN for agitation, but will try to avoid - Continue re-orientation by staff - If able later today, consider head CT. Pt would not be able to complete at this point today. 2) Acute respiratory failure: Improved significantly, due to acute on chronic CHF and pneumonia. 3) Pneumonia: - Continue Ceftriaxone and Azithromycin 4) Acute on chronic CHF: With severe reduction in EF, 20-25%. Pt declined transfer to higher level of care. BNP improved today, however lungs still sound wet on auscultation. - Cardiology consulted, Dr Fleming to see the pt later today. Appreciate care and recommendations. - Heparin held due to pts wishes when she was alert and oriented - Continue home Losartan, Carvedilol - 10mg Hydralazine, TID with goal SBP < 120, and MAP 70-80 - Can increase dose Losartan at d/c and hopefully d/c Hydralazine at that time - 25mg Spirinolactone daily - Continue diuresis with IV Lasix until euvolemic. Net loss over 3L thus far. 5) Atrial fibrillation with RVR: Pt converted on IV Diltiazem, now weaned from this. - Continue Telemetry - Appreciate cardiology recommendations - Pt currently significant fall risk, especially with agitation. Would be higher risk with anticoagulation currently. 6) DM Type 2: - Continue home insulin regimen 7) Hypothyroidism: - Continue home Levothyroxine FEN: Diabetic diet DVT prophylaxis: Lovenox Code status: DNR/DNI after discussion with pts daughters, DPOAs, last night. Dispo: Pt with ongoing significant needs. Pending improvement in respiratory and mental status. Currently appropriate for ICU status. Time Spent With Patient Time with patient: Greater than 35 minutes Quality VTE Deep Vein Thrombosis/Pulmonary Embolism Present on Admission: No
[2019-05-26] MEDS: SODIUM CHLORIDE 0.9% FLUSH 10 ML IV ×2 (12:33→21:07)
[2019-05-26] MEDS: INSULIN GLARGINE 100 UNIT/ML 3ML PEN 40 UNIT SUBCUT (13:00)
[2019-05-26] MEDS: FUROSEMIDE 40 MG/4 ML VIAL IV (13:42)
[2019-05-26] MEDS: BENZONATATE 100 MG CAPSULE PO (13:48)
[2019-05-26] MEDS: LEVOTHYROXINE 100 MCG TABLET PO (13:52)
[2019-05-26] MEDS: OXYBUTYNIN 5 MG ER TAB PO (13:52)
[2019-05-26] MEDS: LOSARTAN 50 MG TABLET PO (13:53)
[2019-05-26] MEDS: SPIRONOLACTONE 25 MG TABLET PO (13:54)
[2019-05-26] MEDS: carvediloL 6.25 MG TABLET PO ×2 (13:54→17:46)
[2019-05-26] MEDS: HYDRALAZINE 10 MG TABLET PO ×3 (13:55→21:07)
[2019-05-26 15:54] LABS: BUN Creatinine Ratio 21.3 (6-22); Blood Urea Nitrogen 17 mg/dL (7-17); Calcium 8.9 mg/dL (8.4-10.2); Carbon Dioxide 27 mmol/L (22-32); Chloride 102 mmol/L (98-107); Estimated Glomerular Filt Rate > 60.0 mL/min (>60); Glucose 184 mg/dL (80-110); HEMOLYSIS < 15 (0-50); Magnesium 1.9 mg/dL (1.6-2.3); Potassium 3.7 mmol/L (3.4-5.1); Sodium 135 mmol/L (137-145)
--- NOTE | 2019-05-26 17:10 | P.CONS_ITS ---
History of Present Illness Consult details Date Patient Seen: 05/26/19 Time Patient Seen: 12:15 Chief complaint: difficulty breathing Reason for consult: Dyspnea with cardiomyopathy Narrative: Dr. Shiela Grubbs has asked that I consult on this 78-year-old female admitted with respiratory failure and known cardiomyopathy. She had no documented cardiac history except for hypertension and diabetes although a possible history of atrial fibrillation without specifics until she was evaluated by Dr. Grant at [place] in July 2006 for evaluation of a LBBB and possible renovascular hypertension with suggestion of a 60% left renal artery stenosis on Doppler exam and systolics in the 180s. An adenosine myocardial perfusion study suggested an ejection fraction of 36% with a fixed anteroseptal and apical defect with a question of mild monisha-infarct ischemia. An echocardiogram showed an EF of 40% with global hypokinesis although worse in the anterior septum but no valvular abnormality. On the basis of this, she underwent cardiac catheterization in August 2006 revealing only mild luminal irregularities with a codominant left circumflex and an ejection fraction of 35%. There was a suggestion of an 80% left renal artery stenosis although tortuosity made evaluation difficult. However, the patient refused any intervention. She was felt to have a hypertensive cardiomyopathy and was treated medically with carvedilol, hydralazine, amlodipine, isosorbide, and at her request her own herbal supplements. An echocardiogram in 02/2007 suggested an EF of 40 to 45% with mild LVH and diffuse hypokinesis and was essentially unchanged. She declined MR angiography of the renal artery because of claustrophobia and was noncompliant with many of her medications. She was admitted to [facility] in June 2008 with dyspnea and severe hypertension after stopping all of her medications and had a chest x-ray consistent with pulmonary edema. She was then treated with IV diuresis with significant clinical improvement and was restarted on her cardiac medications. An echocardiogram suggested an EF of around 30% with moderate mitral regurgitation. She was also felt to likely have sleep apnea based on observation. She was discharged and saw Dr. Sheppard in July 2008 and again refused to advance any of her medications in favor of herbal supplements. A repeat echocardiogram in 02/2009 again showed an ejection fraction of 35 to 40% with global hypokinesis with [id number] LVH but normal right ventricular size and function and normal PAP although her blood pressure at that time was 210/98. She subsequently failed cardiology follow-up but has been followed by Dr. Castro with apparent reasonable control of her blood pressures, generally in the 140s although troubled by falls and possible memory loss. She apparently described remote history of atrial fibrillation but none recently. She saw Dr. Castro on 05/23/2019 with a one-week history of cough and dyspnea with congestion and headache, had a BP of 167/91 and was started on antibiotic therapy but presented to [facility] ED on 05/25/2019 with progressive dyspnea and respiratory failure with a BP of 200/100 and a room air oxygen saturation in the 70s. Her troponin was 0.04. While her creatinine kinase was elevated, she had a normal MB %. [place] [address] and a lactate of 3.3. Her ECG showed sinus rhythm with an LBBB. She required BiPAP treatment and was given nitroglycerin and Lasix with fairly prompt clinical improvement. Her troponin subsequently increased to a maximum of 0.16 and chest x-ray was concerning for pneumonia with possible pulmonary edema. Last night, she developed rapid atrial fibrillation in the 150s and was treated with IV diltiazem with blood pressure dropping to 80s but she refused further blood pressure checks. She became confused but spontaneously converted to sinus rhythm in the 70s with blood pressures in the 120s. She has been somewhat uncooperative, refusing oxygen and IV heparin and likewise declined any transfer to [facility] or any invasive evaluation. Her echocardiogram from yesterday showed an EF of around 20 to 25% although on my personal review is likely closer to 25 to 30% with global diffuse hypokinesis but normal right ventricular size and function. She has mild to moderate tricuspid regurgitation and moderate mitral regurgitation with PAP of around 45 mm Hg plus CVP. She is currently a fairly poor historian, quite tangential, frequently require redirecting. She states her primary complaint on admission was her cough over the last several weeks and denied any dyspnea. She has had a fever and noted recent worsening of her pedal edema. She denies any history of atrial fibrillation and has not had any sense of any palpitations recently. She describes a pleuritic chest discomfort over the last several weeks but none otherwise. Her cardiac risk factors include her hypertension and diabetes. Her lipid panel from last month showed a total cholesterol of 167 with an HDL of 24 and triglyceride of 467, pr venting LDL calculation. She smoked 1 pack per day for 10 years but none since 1974. Family history was unobtainable. Meds Home Medications and Allergies Home Medications Medication Instructions Recorded Confirmed Type oxybutynin chloride 5 mg 5 mg PO DAILY #90 tab 12/14/17 05/25/19 Rx tablet,extended release 24 hr carvedilol [Coreg] 6.25 mg PO BID #180 tab 07/19/18 05/25/19 Rx Disabled Parking Permit 1 ea MISCELLANEOUS DIRECTED 08/20/18 05/25/19 History losartan 50 mg PO DAILY 08/20/18 05/25/19 History insulin glargine 100 unit/mL 40 unit SUBCUT DAILY #10 ml 09/20/18 05/25/19 Rx subcutaneous solution levothyroxine 100 mcg tablet See Rx Instructions .ROUTE 02/02/19 05/25/19 Rx .COMPLEX #90 tablet Syringes: 1cc Insulin Syringes #100 each 03/14/19 05/25/19 Rx with Sharon furosemide 40 mg tablet See Rx Instructions .ROUTE 03/14/19 05/25/19 Rx .COMPLEX #180 tablet potassium chloride 20 mEq 20 meq PO BID #180 tab 03/21/19 05/25/19 Rx tablet,extended release albuterol sulfate 90 mcg/actuation 2 puff INHALATION Q4-6H PRN #8.5 05/23/19 05/25/19 Rx aerosol inhaler gram azithromycin 250 mg tablet See Rx Instructions PO .COMPLEX #6 05/23/19 05/25/19 Rx tab benzonatate 100 mg capsule 100 mg PO BID PRN #20 cap 05/23/19 05/25/19 Rx Allergies Allergy/AdvReac Type Severity Reaction Status Date / Time egg Allergy Severe weakness Verified 05/25/19 02:31 on the right side of body after vaccine Anesthetics - Amide Type Allergy Unknown Verified 05/25/19 02:31 [ANESTHETICS - AMIDE TYPE] codeine [CODEINE] Allergy Unknown Verified 05/25/19 02:31 lidocaine [From XYLOCAINE] Allergy Unknown WHEN HAD Verified 05/25/19 02:31 TEETH WORKED ON lisinopril [LISINOPRIL] Allergy Unknown Verified 05/25/19 02:31 milk [MILK] Allergy Unknown Verified 05/25/19 02:31 morphine [MORPHINE] Allergy Unknown Verified 01/01/20 02:31 oxycodone [OXYCODONE] Allergy Unknown Verified 05/25/19 02:31 Penicillins [PENICILLINS] Allergy Unknown Verified 05/25/19 02:31 influenza virus vaccine, Allergy weakness Verified 05/25/19 02:31 specific on the right side of body after vaccine Review of Systems Review of Systems ROS Unobtainable: unobtainable due to mental status Exam Vital Signs (past 8 hours): - 05/26/19 10:00 05/26/19 13:05 05/26/19 13:53 Temperature 98.2 F Pulse Rate 66 72 72 Respiratory Rate 18 25 H Blood Pressure 117/56 L 133/77 133/74 Pulse Oximetry 96 91 05/26/19 13:55 05/26/19 16:55 Temperature 98.5 F Pulse Rate 69 Respiratory Rate 14 Blood Pressure 133/74 124/63 Pulse Oximetry Fraction of Inspired Oxygen 0.50 Oxygen Delivery Method Room Air,Nasal Cannula Oxygen Flow Rate 3 Narrative Exam Narrative: General: Moderately obese confused elderly female who often gives tangential and nonsensical responses. Skin: Warm and dry. HEENT: EOMI with possible mild exophthalmos. Lungs: Coarse rhonchus breath sounds with mild expiratory wheeze. She has a wet loose cough. CV: Nonpalpable PMI with a regular rate and rhythm with a normal S1 and S2. JVP is difficult to assess but is likely 89 cm. Carotid pulses 2+ bilaterally with normal upstroke and no bruit. Dorsalis pedis pulses are 2+ on the right and 1+ on the left. Posterior tibial pulses are nonpalpable. Abdomen: Moderately obese and nondistended although diffuse tenderness to palpation although without any guarding or r ebound. : Antoine catheter in place draining clear urine. Extremities: Warm without any obvious clubbing, cyanosis, or edema. Neuro: Grossly nonfocal, moves all 4 extremities. Psych: Confused Objective Labs Result Diagrams: 05/26/19 04:45 05/26/19 15:10 Labs: Laboratory Results - last 24 hr 05/25/19 05/25/19 05/25/19 04:37 20:37 20:37 WBC RBC Hgb Hct MCV MCH MCHC RDW Plt Count Neut % (Auto) Lymph % (Auto) [place] % (Auto) Eos % (Auto) Baso % (Auto) Neut # (Auto) Lymph # (Auto) [place] # (Auto) Eos # (Auto) Baso # (Auto) ABG pH 7.39 ABG pCO2 34.7 L ABG pO2 172 H ABG HCO3 21 L ABG Total CO2 22 ABG O2 Saturation 100 ABG Base Excess -4.0 L FiO2 0.60 Sodium Potassium Chloride Carbon Dioxide BUN Creatinine Estimated GFR BUN/Creatinine Ratio Glucose Calcium Phosphorus 3.2 Magnesium Total Bilirubin AST ALT Alkaline Phosphatase Troponin I 0.138 H* B-Natriuretic Peptide Total Protein Albumin Globulin Albumin/Globulin Ratio TSH 05/26/19 05/26/19 05/26/19 04:45 04:45 15:10 WBC 12.0 H D RBC 4.48 Hgb 12.8 Hct 38.2 MCV 85.4 MCH 28.6 MCHC 33.5 RDW 13.6 Plt Count 252 Neut % (Auto) 73.2 D Lymph % (Auto) 15.5 L D [place] % (Auto) 9.0 Eos % (Auto) 1.6 L Baso % (Auto) 0.7 Neut # (Auto) 8800 H Lymph # (Auto) 1900 [place] # (Auto) 1100 H Eos # (Auto) 200 Baso # (Auto) 100 ABG pH ABG pCO2 ABG pO2 ABG HCO3 ABG Total CO2 ABG O2 Saturation ABG Base Excess FiO2 Sodium 139 135 L Potassium 4.8 D 3.7 Chloride 104 102 Carbon Dioxide 26 27 BUN 19 H 17 Creatinine 0.80 0.80 Estimated GFR > 60.0 > 60.0 BUN/Creatinine Ratio 23.8 H 21.3 Glucose 162 H D 184 H Calcium 8.6 8.9 Phosphorus Magnesium 1.9 Total Bilirubin 0.6 AST 39 H ALT 23 Alkaline Phosphatase 133 H Troponin I B-Natriuretic Peptide 571 H Total Protein 6.2 L Albumin 3.2 L Globulin 3.0 Albumin/Globulin Ratio 1.1 TSH 05/26/19 15:10 WBC RBC Hgb Hct MCV MCH MCHC RDW Plt Count Neut % (Auto) Lymph % (Auto) [place] % (Auto) Eos % (Auto) Baso % (Auto) Neut # (Auto) Lymph # (Auto) [place] # (Auto) Eos # (Auto) Baso # (Auto) ABG pH ABG pCO2 ABG pO2 ABG HCO3 ABG Total CO2 ABG O2 Saturation ABG Base Excess FiO2 Sodium Potassium Chloride Carbon Dioxide BUN Creatinine Estimated GFR BUN/Creatinine Ratio Glucose Calcium Phosphorus Magnesium Total Bilirubin AST ALT Alkaline Phosphatase Troponin I B-Natriuretic Peptide Total Protein Albumin Globulin Albumin/Globulin Ratio TSH 13.90 H Assessment & Plan Assessment & Plan narrative: 1. Respiratory failure. This is likely multifactorial with the precipitating event likely her pneumonia on the basis of her cough and leukocytosis. I suspect she likely does have some volume overload, likely due to the stress of her pneumonia with associated hypoxemia and mild lactic acidosis which likely has contributed to her elevated troponin. Her left ventricular systolic function is severely depressed but appears reasonably similar to previous and I doubt that she has had an acute coronary syndrome although this cannot be entirely excluded. Yet, her relatively normal cardiac catheterization from 12 years ago is reassuring. Regardless, she refuses any intervention and thus medical therapy is the main mode of therapy. I would continue with IV diuresis with close observation of her electrolytes and renal function, switching to oral furosemide when she appears to approach euvolemia. I agree with the addition of spironolactone and losartan but with close observation of her electrolytes, maintaining a potassium greater than 4.0 and magnesium level greater than 2.0. I would continue with her current dose of carvedilol although this could be slowly advanced over time if she will allow it. If she has more significant hypertension in the short run, her hydralazine can be incrementally increased. I'd recommend repeating an echocardiogram in 3 to 6 months to reassess left ventricular systolic function and degree of mitral regurgitation. If she is amenable to Cardiology recommendations, follow up with me can be pursued following her echocardiogram but if she is recalcitrant in her following Cardiology recommendations, this likely has little value. 2. Atrial fibrillation. While she carries a diagnosis of paroxysmal atrial fibrillation, no details are available. Thus, it's not clear whether she has had recent atrial fibrillation or not. Yet, she again refuses anticoagulation and I think this is reasonable given that she is a Hindu and attempts should be made to avoid any bleeding complications. I suspect that her episode last night was more likely a reflection of the physiologic stress of her respiratory failure and hopefully will not return. If it does, IV amiodarone could be considered in the short run for rate control and rhythm control although I doubt that it would be a good long-term medication given her reluctance to pursue allopathic medications. I would recheck a TSH if she has recurring atrial fibrillation and make sure that her potassium stays greater than 4.0 and magnesium greater than 2.0. 3. Confusion. I'm uncertain of her cognitive baseline but she appears to be significantly confused. With this, I am concerned about her going home to her elderly and disposition should be evaluated but I'll defer this to her primary care team. 4. Hypothyroidism. Per her primary care team. 5. Hypertension. As above. 6. Diabetes. Per her hospital care team. 7. Hyperlipidemia. She has significantly elevated triglycerides. With her diabetes, statin therapy would be indicated if she would be willing to take it. Is again is deferred to her primary care team. 8. Probable sleep apnea. Consideration for a sleep study could be considered if her confusion improved. RECOMMENDATIONS: 1. Continue current medications and IV diuresis, switching to oral furosemide when she is euvolemic. 2. Monitor potassium and magnesium closely, keeping greater than 4.0 and 2.0, respectively. 3. Consider IV amiodarone if she has recurrence atrial fibrillation. 4. Continue current dose of carvedilol with long-term plan to slowly advanced as tolerated. 5. Consider repeat echocardiography in 3 to 6 months with Cardiology follow-up if she is amenable to recommendations. At this point I will sign off. If any further questions, please give us a call, Dr. Gramajo will be available tomorrow. I've spent a total of 2 hours and 5 minutes reviewing old medical records, interviewing and examining the patient, discussing with her family and her care team.
[2019-05-26] MEDS: INSULIN ASPART 100 UNIT/ML INSULN PEN SUBCUT ×2 (17:45→21:06)
[2019-05-26] MEDS: MAGNESIUM OXIDE 400 MG TABLET PO (18:17)
[2019-05-26] MEDS: POTASSIUM CHLORIDE 20 MEQ/15 ML UDC PO (18:18)
[2019-05-27] VITALS (11 sets, daily range): BP systolic 120–158; BP diastolic 53–102; PULSE 66–137; RESP 16–25; TEMP 36.3–37.3; O2SAT 93–96
[2019-05-27] MEDS: FUROSEMIDE 40 MG/4 ML VIAL IV ×2 (00:20→13:18)
[2019-05-27] MEDS: LORazepam 2 MG/ML INJ 0.25 MG IV (03:19)
--- NOTE | 2019-05-27 03:24 | PC.NURSE ---
Addendum entered by Allyssa Owen R.N. 05/27/19 05:45: Patient remained in rapid A-fib, confused, restless, and resistive to care until 446 when she spontaneously converted to NSR. Her was unable to calm patient down so the phoned daughter and son-in-law to assist. When she was back into SR rate 70s, her mentation cleared some and she was more cooperative. NC decreased to 1.5L, sats 95%, she was refusing O2 when confused, sats remained >90% on RA. Took her PO meds with Tylenol this am. Original Note: 299-Dr Cunningham notified patient is back in A-fib RVR, rate 130s, patient is slightly irritable about being woke up, denies chest pain, dyspnea, or dizziness, BP 129/71, says I just want to be left alone at bedside. Received orders from Dr Cunningham to continue monitoring, if HR sustains >140 for >10 minutes, give amiodarone 300mg over 1 hour. 0.25mg IV Ativan given for agitation.
[2019-05-27] MEDS: CEFTRIAXONE 1 GM/50 ML FROZ.PIGGY IV ×2 (04:16→16:26)
[2019-05-27] MEDS: HYDRALAZINE 10 MG TABLET PO ×2 (05:24→13:19)
[2019-05-27] MEDS: LEVOTHYROXINE 100 MCG TABLET PO (05:25)
[2019-05-27] MEDS: ACETAMINOPHEN 325 MG TABLET 650 MG PO ×2 (05:25→16:28)
[2019-05-27 05:27] LABS: Add Manual Diff / Slide Review NO; Basophils Absolute Auto 100 /uL (0-100); Basophils Percent Auto 1.1 % (0-2); Eosinophils Absolute Auto 400 /uL (0-450); Eosinophils Percent Auto 4.2 % (2-4); Hematocrit 38.9 % (36-46); Lymphocytes Absolute Auto 1900 /uL (1100-4500); Mean Corpuscular HGB Conc 33.4 % (30-36); Mean Corpuscular Hemoglobin 28.7 PG (26-34); Mean Corpuscular Volume 85.9 fL (80-100); Monocytes Absolute Auto 800 /uL (0-900); Monocytes Percent Auto 9.6 % (3-14); Neutrophils Absolute Auto 5400 /uL (1500-7000); Neutrophils Percent Auto 63.1 % (50-75); Platelet Count 241 X10^3/uL (150-400); Red Blood Cell Count 4.52 X10^6/uL (4.0-5.2); Red Cell Distribution Width 13.8 % (11.6-14.8); White Blood Cell Count 8.5 X10^3/uL (4.5-11.0)
[2019-05-27 05:33] LABS: BUN Creatinine Ratio 25.7 (6-22); Blood Urea Nitrogen 18 mg/dL (7-17); Calcium 8.9 mg/dL (8.4-10.2); Carbon Dioxide 27 mmol/L (22-32); Chloride 102 mmol/L (98-107); Estimated Glomerular Filt Rate > 60.0 mL/min (>60); Glucose 186 mg/dL (80-110); HEMOLYSIS < 15 (0-50); Potassium 3.4 mmol/L (3.4-5.1); Sodium 138 mmol/L (137-145)
[2019-05-27 05:38] LABS: Magnesium 1.9 mg/dL (1.6-2.3)
[2019-05-27] MEDS: AZITHROMYCIN 250 MG in DEXTROSE 5% IN WATER 250 ML IV (06:14)
[2019-05-27] MEDS: LOSARTAN 50 MG TABLET PO (08:39)
[2019-05-27] MEDS: carvediloL 6.25 MG TABLET PO ×2 (08:39→16:28)
[2019-05-27] MEDS: SPIRONOLACTONE 25 MG TABLET PO (08:39)
[2019-05-27] MEDS: guaiFENesin ER 600 MG TAB 1200 MG PO (08:39)
[2019-05-27] MEDS: OXYBUTYNIN 5 MG ER TAB PO (08:40)
[2019-05-27] MEDS: INSULIN ASPART 100 UNIT/ML INSULN PEN SUBCUT ×3 (08:40→17:09)
[2019-05-27] MEDS: INSULIN GLARGINE 100 UNIT/ML 3ML PEN 40 UNIT SUBCUT (08:40)
[2019-05-27] MEDS: SODIUM CHLORIDE 0.9% FLUSH 10 ML IV ×4 (08:43→21:54)
[2019-05-27] MEDS: MAGNESIUM OXIDE 400 MG TABLET PO (08:43)
--- NOTE | 2019-05-27 10:08 | PM.PN.1 ---
Subjective Subjective Date Patient Seen: 05/27/19 Time Patient Seen: 07:45 Interval history: This morning, the pt was pleasantly conversant. She reported that she continues to have a frequent cough that is quite bothersome. She feels unable to clear the mucus from her throat. She denies any recent chest pain. She states that she is feeling much better than yesterday. Exam Vital Signs (past 8 hours): - 05/27/19 02:50 05/27/19 04:40 05/27/19 05:24 Temperature 97.3 F L 97.3 F L Pulse Rate 122 H 137 H 73 Respiratory Rate 20 16 Blood Pressure 129/71 133/59 L 133/59 L Pulse Oximetry 96 94 05/27/19 08:00 05/27/19 09:42 05/27/19 09:58 Temperature 98.5 F Pulse Rate 68 72 70 Respiratory Rate 22 25 H 18 Blood Pressure 141/102 H 142/69 H Pulse Oximetry 96 96 94 Fraction of Inspired Oxygen 0.50 Oxygen Delivery Method Room Air Oxygen Flow Rate 2 Narrative Exam Narrative: Gen: sitting up in bed, pleasantly conversant in complete sentences, appears improved from yesterday, breathing comfortably with NC for oxygen in place CV: distant heart sounds, RRR, grade 2/6 systolic murmur Resp: coarse breath sounds throughout, crackles bilateral bases right > left, no wheezing Abd: soft, nontender, nondistended Ext: no edema Neuro: oriented to person, place, and situation but not time, CN grossly intact Objective Labs Result Diagrams: 05/27/19 04:43 05/27/19 04:43 Labs: Laboratory Results - last 24 hr 05/26/19 05/26/19 05/27/19 15:10 15:10 04:43 WBC 8.5 RBC 4.52 Hgb 13.0 Hct 38.9 MCV 85.9 MCH 28.7 MCHC 33.4 RDW 13.8 Plt Count 241 Neut % (Auto) 63.1 Lymph % (Auto) 22.0 L [place] % (Auto) 9.6 Eos % (Auto) 4.2 H Baso % (Auto) 1.1 Neut # (Auto) 5400 Lymph # (Auto) 1900 [place] # (Auto) 800 Eos # (Auto) 400 Baso # (Auto) 100 Sodium 135 L Potassium 3.7 Chloride 102 Carbon Dioxide 27 BUN 17 Creatinine 0.80 Estimated GFR > 60.0 BUN/Creatinine Ratio 21.3 Glucose 184 H Calcium 8.9 Magnesium 1.9 TSH 13.90 H 05/27/19 05/27/19 04:43 04:43 WBC RBC Hgb Hct MCV MCH MCHC RDW Plt Count Neut % (Auto) Lymph % (Auto) [place] % (Auto) Eos % (Auto) Baso % (Auto) Neut # (Auto) Lymph # (Auto) [place] # (Auto) Eos # (Auto) Baso # (Auto) Sodium 138 Potassium 3.4 Chloride 102 Carbon Dioxide 27 BUN 18 H Creatinine 0.70 Estimated GFR > 60.0 BUN/Creatinine Ratio 25.7 H Glucose 186 H Calcium 8.9 Magnesium 1.9 TSH Assessment & Plan Assessment & Plan narrative: 78 year old woman with insulin-dependent type 2 DM, HTN, hypothyroidism, and CHF who presented with acute respiratory failure due to pneumonia and CHF exacerbation. Respiratory status improved after diuresis with Lasix and initiation of antibiotics, now on nasal canula. WBC count improved from 24 to 8. Due to Troponin rising after admission, the pt was started on Heparin drip. Echo then showed EF 20-25% (25-30% on repeat read) with global hypokinesis. Dr Dickey recommended transfer to [facility] for further care and possible intervention, but the pt declined transfer. After discussion with family and friends, the pt then decided to discontinue the Heparin drip. She did desire medical management of her CHF to maximize her life expectancy. 2 nights ago, the pt went into atrial fibrillation with RVR. She developed hypotension and confusion. She was started on a Diltiazem drip. Cardioversion was discussed, but the pt converted to sinus rhythm prior to it being completed. Her confusion improved somewhat after her BP improved and HR remained in sinus. Last night the pt again went in the atrial fibrillation, HR remaining 120-130 range. She was again very agitated, however was awoken from her sleep. She converted to sinus without medications. Pt evaluated by Dr Fleming, Cardiology, yesterday. After review of much older medical records, determined EF not significantly changed from prior. 1) Altered mental status: Seem to be precipitated by removal of oxygen, atrial fibrillation, and waking from sleep. Question baseline status. - Ativan 0.25mg q2hr PRN for agitation, but will try to avoid - Continue re-orientation by staff 2) Acute respiratory failure: Improving gradually, due to pneumonia and acute on chronic CHF 3) Pneumonia: - Continue Ceftriaxone and Azithromycin 4) Acute on chronic CHF with hypertension: With severe reduction in EF, 25-30%. Pt declined transfer to higher level of care. Still evidence of fluid overload on lung exam. BPs remain elevated above goal. - Cardiology consulted, Dr Fleming recommendations appreciated - Increase Losartan to 75mg daily - Continue home Carvedilol. Increase Carvedilol in the future as tolerated. - 10mg Hydralazine, TID with goal SBP < 120, and MAP 70-80. Consider increase later today/tomorrow. - 25mg Spirinolactone daily - Continue diuresis with IV Lasix until euvolemic. Net loss over 3L thus far - Repeat Echo in 3-6 months 5) Atrial fibrillation with RVR: Pt converted on IV Diltiazem 2 nights ago, converted to sinus. Repeat atrial fibrillation last night, converted without intervention. - Continue Telemetry - Do not recommend anticoagulation due to Zoroastrianism and high fall risk - IV Amiodarone if persistent and hemodynamic compromise - Keep potassium > 4.0 and Mg > 2.0. Repleted today. Continue to trend BMP. 6) DM Type 2: Blood sugars labile - Continue home insulin regimen 7) Hypothyroidism: TSH elevated. Question if taking medication at home. - Increase Levothyroxine to 125mcg daily FEN: Diabetic diet DVT prophylaxis: SCDs Code status: DNR/DNI after discussion with pts daughters, DPOAs, during this hospitalization Dispo: Pt with ongoing significant needs. Pending improvement in respiratory and mental status. Quality VTE Deep Vein Thrombosis/Pulmonary Embolism Present on Admission: No
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
[2019-05-27] MEDS: POTASSIUM CHLORIDE 20 MEQ TAB 40 MEQ PO (16:28)
--- NOTE | 2019-05-27 16:45 | PT.IPTN ---
Current Diagnoses Pneumonia, unspecified organism (05/25/19) Physical Therapy Treatment Note M2 PT-IP Current Condition Start: 05/27/19 15:54 Freq: NEEDED Status: Active Protocol: Document 05/27/19 11:15 LRN (Rec: 05/27/19 17:07 LRN [id number]) Physical Therapy Current Condition Current Condition Evaluation Date 05/27/19 Treatment Diagnosis difficulty breathing Onset Date 12 days ago Weight Bearing Status Allowed Weight Bearing Amount (enter % Ambulate as tolerated or #) (%) M3 PT-IP Subjective Start: 05/27/19 15:54 Freq: NEEDED Status: Active Protocol: Document 05/27/19 16:45 AB (Rec: 05/27/19 17:58 AB [id number]) Subjective Physical Therapy Visit Type Type Treatment Note Visit Start Time 16:45 Visit Stop Time 17:17 Total Visit Minutes 32 Number of [facility] Visits 0 Physical Therapy Visit Comments Patient Comments pt agreeable to do PT but with confusion; family in room M4 PT-IP Mobility and Gait Start: 05/27/19 15:54 Freq: NEEDED Status: Active Protocol: Document 05/27/19 16:45 AB (Rec: 05/27/19 17:58 AB [id number]) PT-Bed Mobility Assessment Rolling Level of Assist Maximal Assistance,2 Person Assistance Supine to Sit Supine to Sit Maximum Assistance,2 Person Assistance,Head of Bed Elevated,Bedrails Scooting Scooting to Edge of Bed Dependent PT-Transfer Assessment Sit to and From Stand Sit to and from Stand Maximum Assistance,2 Person Assistance,Use of Upper Extremities Equipment Transfer Assistive Device Gait Belt Orthotic/Prosthetic Devices or Brace: No Transfers Transfer Destination Chair Transfer Technique Stand Pivot Transfer Ability Level of Assist Maximum Assistance,2 Person Assistance,Use of Upper Extremities Comments Mobility Comments pt completed supine to sit max A x 2 and max cues. pt initially requires mod to max A to maintain sitting balance on EOB but repositioning requires min to mod A. pt with (+) R sided neglect with head rotated to the L and L sided disassociation with pt pertaining L side body parts to other objects . pt able to turn head to the R after some cueing but returns her head back to the L after 1-2 secs later. pt completed sit to stand x 2 attempts max A x 2 and max cues using FWW. pt was able to stand but with increase leaning against the bed and pt instructed to sit back down. completed 2 person max A stand pivot transfer with max cues. pt requires max A x 2 to total Ax 2 for scooting and repositioning on the chair. Left pt with nurse. PT-Balance Assessment Sitting Balance and Reactions Static Sitting Balance Ability Poor Dynamic Sitting Balance Ability Poor Standing Balance and Reactions Static Standing Balance Ability Poor Dynamic Standing Balance Ability Poor Device Used FWW M5 PT-IP Objective Assessments Start: 05/27/19 15:54 Freq: NEEDED Status: Active Protocol: Document 05/27/19 11:15 LRN (Rec: 05/27/19 17:07 LRN [id number]) Orientation Orientation/Cognition Level of Alertness Alert Orientation Name,Month,Year,Place Language Function Ability No Deficits Noted Safety Awareness Understands Safety Issues Gross Range of Motion Upper Extremity ROM Assessment Within Functional Limits Impairments AROM Lower Extremity ROM Assessment Right Impaired Impairments Generally RLE strength was 2/5 . Noted foot drop on R. Strength Upper Extremity Strength Assessment Right Impaired Shoulder Generally 4/5 Elbow Biceps 3/5, Triceps 4/5 Hand Slightly less on Right. Lower Extremity Strength Assessment Right Impaired Hip 2-/5 Knee 2-/5 Ankle 2-/5 Comments Strength Comments Weakness noted in RLE, dominant side. Sensation Assessment Sensation Gross Sensation Right UE Impaired,Left LE Impaired Sensation Description Hyperesthesia,Pain Comments Sensation Comments Pt extremely sensative to light touch and pressure. Muscle Tone Muscle Tone WNL No Comments Muscle Tone Comments Weakness of RLE. Other Assessments Other Other Assessments Nursing was monitoring cardiac care. M6 PT-IP Treatment Start: 05/27/19 15:54 Freq: NEEDED Status: Active Protocol: Document 05/27/19 16:45 AB (Rec: 05/27/19 17:58 AB [id number]) Physical Therapy Treatment Education Education Provided Safety M7 PT-IP Assessment and Plan Start: 05/27/19 15:54 Freq: NEEDED Status: Active Protocol: Document 05/27/19 16:45 AB (Rec: 05/27/19 17:58 AB [id number]) PT Summary Assessment and Plan Potential Rehabilitation Potential Fair Summary Impairments Pain,ROM,Strength,Balance, Coordination,Sensation,Tone, Cognition,Bed Mobility, Transfers,Gait,Activity Tolerance Progress Towards Goals Slow Progress due to Medical Issues Assessment Summary pt requires max A x 2 and max cues with all tasks; has R sided neglect and L side disassociation. Informed the nurse and doctor of the assessment, suggestive of possible neurological involvement. At this time, pt will require SNF rehab to iimprove strength and mobility . Goals Bed Mobility Goal Moderate Assistance Transfer Goal Moderate Assistance Gait Goal Moderate Assistance,Front Wheel Walker Gait Distance 25' Days to Meet Goals 2 Frequency of Treatment Frequency Of Treatment Twice a Day Treatment Plan Physical Therapy Treatment Plan Bed Mobility Training,Transfer Training,Gait Training, Therapeutic Exercise,Balance Retraining,Neuromuscular Re-ed Other Recommendations and Next Treatment transfers, sitting/standing Focus balance/tolerance; activities to increase R side awareness Recommendations To Nursing Amount of Assist Needed 2 Person Assist,Mechanical Lift Discharge Recommendations PT Discharge Recommendations SNF Rehab
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
--- NOTE | 2019-05-27 18:46 | DI.CT.S_ITS ---
PROCEDURE: CT HEAD/BRAIN W CON INDICATIONS: Right sided weakness/neglect. TECHNIQUE: 4.5 mm thick angled axial sections acquired from the foramen magnum to the vertex after the administration of intravenous contrast, with coronal and sagittal reformats. For radiation dose reduction, the following was used: automated exposure control, adjustment of mA and/or kV according to patient size. COMPARISON: None. FINDINGS: Image quality: Motion degraded examination. CSF Spaces: Basal cisterns are patent. No extra-axial fluid collections. Ventricles are normal in size and shape. Brain: No midline shift. No intracranial bleeds or masses. No abnormal intracranial enhancement. Hansen-white interface appears normal. Skull and face: Calvarium and visualized facial bones appear intact, without suspicious lesions. Sinuses: Visualized sinuses and mastoids are clear. IMPRESSION: No acute intracranial process. Dictated by: Kevan Tomlin M.D. on 05/27/2019 at 20:12 Approved by: Kevan Tomlin M.D. on 05/27/2019 at 20:14
[2019-05-27] MEDS: LORazepam 2 MG/ML INJ 0.5 MG IV (19:15)
[2019-05-27] MEDS: HALOPERIDOL 5 MG/ML VIAL 1 MG IV (22:09)
--- NOTE | 2019-05-27 22:22 | PC.NURSE ---
Assumed care of pt at 1500. Pt resting in bed during bedside hand-off. Pleasant and cooperative with care until P.T. trans pt to chair for dinner. Pt became angry telling staff they are not to touch her. R. side weakness noted to R. eye and RLE. MD notified. CT ordered. after CT pt refusing all care/medications. MD notified. Haldol ordered and 1 mg given at 2220. Supportive family visiting/reading scriptures helping to calm pt. Will attempt HS medications and vitals when pt is more calm.
[2019-05-27] MEDS: HYDRALAZINE 20 MG/ML VIAL 5 MG IV (22:41)
[2019-05-28] VITALS (10 sets, daily range): BP systolic 113–166; BP diastolic 65–84; PULSE 66–77; RESP 16–23; TEMP 36.3–37.6; O2SAT 93–97
[2019-05-28] MEDS: FUROSEMIDE 40 MG/4 ML VIAL IV ×3 (00:17→23:36)
[2019-05-28] MEDS: HALOPERIDOL 5 MG/ML VIAL 1 MG IV (01:01)
--- NOTE | 2019-05-28 01:15 | PC.NURSE ---
Addendum entered by Elzbieta Stevenson R.N. 05/28/19 07:23: Blanchable redness to coccyx. Allyvn and cream applied Addendum entered by Elzbieta Stevenson R.N. 05/28/19 06:35: Pt resting now without complaints. No hallucinations or delusions at this time. Pt oriented to self, does not remember daughter who is at the bedside. No complaints or signs of pain via FLACC scale. Addendum entered by Elzbieta Stevenson R.N. 05/28/19 03:39: 0320 - Pt sitting up in bed very restless and anxious. Pulling at IV site, tele and monroe again. Pt re-directable. Pt reports that she cannot sleep. PRN ativan given. 0340 - Pt now resting in bed with eyes closed. O2 running at 95% on RA. WCTM Addendum entered by Elzbieta Stevenson R.N. 05/28/19 01:50: Pt now resting in bed with eyes closed without complaints. O2 running at 94% on RA. Bed alarm set. Family at bedside. Original Note: Pt getting agitated and anxious. Pulling at lines. Reports bugs in bed. Pt re-directable and pleasant. Haldol given. WCTM
[2019-05-28] MEDS: ACETAMINOPHEN 325 MG TABLET 650 MG PO ×2 (02:17→15:01)
[2019-05-28] MEDS: LORazepam 2 MG/ML INJ 1 MG IV ×2 (03:16→22:05)
[2019-05-28] MEDS: BENZONATATE 100 MG CAPSULE PO ×2 (03:16→17:52)
[2019-05-28] MEDS: CEFTRIAXONE 1 GM/50 ML FROZ.PIGGY IV ×2 (03:30→16:28)
[2019-05-28] MEDS: AZITHROMYCIN 250 MG in DEXTROSE 5% IN WATER 250 ML IV (05:17)
[2019-05-28] MEDS: HYDRALAZINE 10 MG TABLET PO ×3 (06:04→21:13)
[2019-05-28] MEDS: LEVOTHYROXINE 125 MCG TABLET PO (06:04)
[2019-05-28] MEDS: INSULIN GLARGINE 100 UNIT/ML 3ML PEN 40 UNIT SUBCUT (08:19)
[2019-05-28] MEDS: INSULIN ASPART 100 UNIT/ML INSULN PEN SUBCUT ×3 (08:20→16:46)
[2019-05-28] MEDS: SPIRONOLACTONE 25 MG TABLET PO (08:30)
[2019-05-28] MEDS: POTASSIUM CHLORIDE 20 MEQ TAB 40 MEQ PO ×2 (08:30→16:28)
[2019-05-28] MEDS: MAGNESIUM OXIDE 400 MG TABLET PO ×2 (08:30→20:42)
[2019-05-28] MEDS: carvediloL 6.25 MG TABLET PO ×2 (08:30→16:28)
[2019-05-28] MEDS: guaiFENesin ER 600 MG TAB 1200 MG PO ×2 (08:30→20:41)
[2019-05-28] MEDS: LOSARTAN 25 MG TABLET 75 MG PO (08:31)
[2019-05-28] MEDS: OXYBUTYNIN 5 MG ER TAB PO (08:31)
[2019-05-28 08:56] LABS: Add Manual Diff / Slide Review NO; Basophils Absolute Auto 100 /uL (0-100); Basophils Percent Auto 1.3 % (0-2); Eosinophils Absolute Auto 200 /uL (0-450); Eosinophils Percent Auto 1.8 % (2-4); Hematocrit 41.3 % (36-46); Hemoglobin 13.9 g/dL (12.0-16.0); Lymphocytes Absolute Auto 2200 /uL (1100-4500); Lymphocytes Percent Auto 22.3 % (25-40); Mean Corpuscular HGB Conc 33.6 % (30-36); Mean Corpuscular Hemoglobin 28.9 PG (26-34); Mean Corpuscular Volume 85.8 fL (80-100); Monocytes Absolute Auto 900 /uL (0-900); Neutrophils Absolute Auto 6600 /uL (1500-7000); Neutrophils Percent Auto 65.6 % (50-75); Platelet Count 285 X10^3/uL (150-400); Red Blood Cell Count 4.82 X10^6/uL (4.0-5.2); Red Cell Distribution Width 14.2 % (11.6-14.8); White Blood Cell Count 10.1 X10^3/uL (4.5-11.0)
[2019-05-28 09:05] LABS: Alanine Aminotransferase 27 IU/L (<35); Albumin 3.7 g/dL (3.5-5.0); Albumin Globulin Ratio 1.1 (1.0-2.8); Alkaline Phosphatase 148 U/L (38-126); Aspartate Aminotransferase 40 IU/L (14-36); Bilirubin Total 0.5 mg/dL (0.2-1.3); Blood Urea Nitrogen 16 mg/dL (7-17); Calcium 9.6 mg/dL (8.4-10.2); Carbon Dioxide 33 mmol/L (22-32); Chloride 98 mmol/L (98-107); Estimated Glomerular Filt Rate > 60.0 mL/min (>60); Globulin 3.4 g/dL (1.7-4.1); Glucose 222 mg/dL (80-110); HEMOLYSIS < 15 (0-50); Magnesium 2.1 mg/dL (1.6-2.3); Potassium 4.1 mmol/L (3.4-5.1); Sodium 138 mmol/L (137-145); Total Protein 7.1 g/dL (6.3-8.2)
--- NOTE | 2019-05-28 10:00 | DI.RAD.S_ITS ---
PROCEDURE: XR CHEST 1V INDICATIONS: f/u pneumonia, chf exacerbation TECHNIQUE: One view of the chest was acquired. COMPARISON: [facility], [place], CHEST 1 VIEW, 06/29/2017, 14:53. [facility], [place], XR CHEST 1V, 05/25/2019, 2:04. FINDINGS: Surgical changes and devices: Upper lumbar vertebroplasty cement is seen. Lungs and pleura: Mild interstitial prominence is seen, which is improved compared to the prior examination. No pleural effusions or pneumothorax. Mediastinum: The cardiac contours are within normal limits. The aorta demonstrates calcification and tortuosity. Bones and chest wall: Age-appropriate bony degenerative changes are seen, particularly affecting the right shoulder. No suspicious bony lesions. Overlying soft tissues appear unremarkable. IMPRESSION: Improving interstitial prominence, which is consistent with resolving CHF. Dictated by: Zaire Quiroz M.D. on 05/28/2019 at 9:39 Approved by: Zaire Quiroz M.D. on 05/28/2019 at 9:40
--- NOTE | 2019-05-28 10:44 | CM.DPC ---
Addendum entered by Mikaela Kirk R.N. 05/28/19 14:29: Met with patient's , Ryan, in room. Introduced self and role. felt that she was improving, and didn't seem as confused today. Patient was sleeping when this assortment planner entered room. Discussed referrals between [facility] and [facility]. is hopeful for [facility] so she wouldn't need to leave town. also mentioned patient potentially staying with his daughter. Let know that this director of casework department is available should he have any questions. Have not yet heard back from patient's daughter. Addendum entered by Mikaela Kirk R.N. 05/28/19 11:25: Was able to get in contact with Taylor in admissions at [facility]. She stated that they are working on insurance authorization, and should have answer today or tomorrow. She will continue to update this assortment planner. Let her know that patient at this time is having some confusion. Original Note: DCP Cont: Spoke Jen, in admissions at [facility] to follow up with authorization process, and acceptance. Stated that due to patient's behaviors, would have to be evaluated by a nurse at [facility] on Thursday. Left a message with [facility] as well. Patient had been confused last night. Spoke to Dr. Grubbs, attending physician today. Stated that her mental status is far from baseline. Mentioned that patient is getting more medically stable, but is noting altered mental status. Stated, memory care may be a good option for patient. Let her know that this could be discussed with family. Left a message with patient's daughter, Rina, to call this director of casework department. Spoke to , Ryan, and he is in the room trying to sleep. Let him know that this director of casework department is available to discuss options. P: DCP to continue to follow closely, and offer resources that could be available for patient. Mikaela Kirk RN/Deliverer Outside
--- NOTE | 2019-05-28 10:56 | PC.NURSE ---
Addendum entered by Jennifer Baca R.N. 05/28/19 15:21: PAIN - when pt woke up, states some generalized discomfort, given 650mg po tylenol, family is at bedside and prefers to stay in chair at this time. Addendum entered by Jennifer Baca R.N. 05/28/19 12:49: MS - phys and occup therapy in, pt slowly mobilized to dangle position, able to follow basic directions, reassurance provided as pt is fearful of standing, using fww, PT and OT stood and pivoted to chair, family at bedside and assisting with meal. Original Note: AM NOTE - pt was asleep during bedside shift report, spouse at bedside, awakened for cbg and breakfast, pt initially could not remember her name, able with prompting to state Lian and then recited birthdate, not oriented to situation or place, reoriented to hospital, mildly restless at times, repositioned upright and spouse assisted with breakfast, able to take medications w/o coughing of difficulty, does have an an occass congested, non productive cough, portable cxr completed, discussed mri w/ and she spoke to spouse and test cancelled, pt does lean to right side some when sitting up, on command her die repairer trimmer dies are strong and able to push cesar le against resistance.
--- NOTE | 2019-05-28 12:07 | OT.IP.TRT ---
Current Diagnoses Pneumonia, unspecified organism (05/25/19) Occupational Therapy Treatment Note M2 OT-IP Current Condition Start: 05/27/19 17:37 Freq: Status: Active Protocol: Document 05/27/19 16:45 [facility] (Rec: 05/27/19 18:14 [facility] [id number]) Occupational Therapy Current Condition Current Condition Evaluation Date 05/27/19 Treatment Diagnosis Right sided weakness, CHF exacerbation, altered mental status Diagnosis Onset Date 05/25/19 Weight Bearing Status Weight Bearing Status Weight Bear as Tolerated M3 OT- IP Subjective and Pain Start: 05/27/19 17:37 Freq: Status: Active Protocol: Document 05/28/19 12:49 [facility] (Rec: 05/28/19 13:15 [facility] [id number]) OT- Subjective Occupational Therapy Visit Type Type Treatment Note Visit Start Time 12:07 Visit Stop Time 12:47 Total Visit Minutes 40 Occupational Therapy Visit Comments Patient Comments Pt's grand daughter and present for OT /PT joint session due to extensive assist for mobility needs. Patient/Caregiver Goals Pt wanting to get better. OT Pain Assessment Pain When Pain Assessed During Mobility Pain Present Pain Present Pain Reported M4 OT- IP ADL's Start: 05/27/19 17:37 Freq: Status: Active Protocol: Document 05/27/19 16:45 [facility] (Rec: 05/27/19 18:14 [facility] [id number]) OT [id number] Comments OT Self-Feeding Comments Not at meal time. Due to neglect would recommend initial 1:1 supervision and assist. OT ADL-Grooming Comments OT Grooming Comments Not able to perform as pt just tolerated doing transfer only at this time. OT ADL-Dressing Comments OT Dressing Comments At this time pt will require MAX A x2 for LB dressing needs due to poor balance, right neglect , and weakness and ataxia to move right side of her body. OT ADL-Toileting General Evaluation Toileting Ability Total Assistance Comments OT Toileting Comments Pt has [place] in. OT ADL-Bathing Comments OT Bathing Comments Sponge bathing more appropriate at this time. M5 OT- IP IADL's Start: 05/27/19 17:37 Freq: Status: Active Protocol: Document 05/27/19 16:45 [facility] (Rec: 05/27/19 18:14 [facility] [id number]) OT-Instrumental Activities of Daily Living Home Safety Awareness Awareness of Need for Assistance at Home Decreased Awareness Ability to Problem Solve Emergency Unable to Problem Solve Situations Home Safety Comments At this time pt not cognitively or physically capable to be able to care for herself for any ADL's and IADL needs. M6 OT- IP Functional Cognition Start: 05/27/19 17:37 Freq: Status: Active Protocol: Document 05/28/19 12:49 [facility] (Rec: 05/28/19 13:15 [facility] [id number]) Cognitive Factors Limiting Selfcare Function Cognitive Ability Level of Alertness Alert Patient Orientation Name Attention Span Ability Capable of Focused Attention, Unable to Sustain Attention Ability to Follow Commands Able to Follow One Step Commands with Increased Time, Able to Follow One Step Commands with Repetition Memory Description Short Term Impaired Safety Awareness Underestimates Need for Assistance Problem Solving Ability Unable to Identify Errors, Needs Assist to Identify Solutions Executive Function Ability Unable to Switch Focus,Unable to Filter Distractions,Unable to Organize Plans,Unable to Remember Details Cognitive Comments Cognitive Assessment Comments Pt needing concrete step by step instructions in order to follow bed mobility and transfers sequencing. Pt easily distracted and confused and having to explain what is going on so pt understands what to do. Pt is frustrated that she is not able to do what she has done before. OT- Vision and Hearing OT- Vision Assessment Visual Attentiveness Impaired Occular Pursuits Impaired Horizontal Visual Mancuso WFL Visual Spacial Neglect Right Vision Assessment Comments Right field cut. Pt having difficulty to scan to the right as unable to read name tag. Educated pt's family to talk to her on her right and be able to find items for herself instead of assisting her. M7 OT- IP Mobility and Balance Start: 05/27/19 17:37 Freq: Status: Active Protocol: Document 05/28/19 12:49 [facility] (Rec: 05/28/19 13:15 [facility] [id number]) OT- Bed Mobility Assessment Rolling Type of Rolling Roll to Left Level of Assistance Moderate Assistance,1 Person Assistance Supine to Sit Supine to Sit Assist Moderate Assistance,1 Person Assistance Scooting Scooting to Edge of Bed Moderate Assistance,1 Person Assistance OT-Transfer Assessment Sit to and From Stand Sit to and from Stand Maximum Assistance,2 Person Assistance Transfers Transfer Ability Maximum Assistance,2 Person Assistance Technique Transfer Destination Bed,Chair Transfer Technique Squat Pivot Devices Transfer Assistive Devices Gait Belt Comments Mobility Comments Pt able to initiate more movement to RUE and RLE. Pt needing assist to help move RLE and assist to get trunk upright with HOB up. Attempted to stand and not able to stand as right knee jing. Therefore able to do squat pivot transfer MAX A X 2. OT- Balance Assessment Sitting Balance and Reactions Static Sitting Balance Ability Fair Dynamic Sitting Balance Ability Poor Standing Balance and Reactions Static Standing Balance Ability Poor Dynamic Standing Balance Ability Poor Comments Other Balance Tests/Deviations/Treatment Pt better at sitting balance : today and mostly able to sit at edge of the bed with SBA. However when pt trying to reach out needing CGA to JACQUI for support. M8 OT- IP Objective Assessments Start: 05/27/19 17:37 Freq: Status: Active Protocol: Document 05/28/19 12:49 [facility] (Rec: 05/28/19 13:15 [facility] [id number]) OT Gross Range of Motion Upper Extremity Range of Motion Assessment Right Impaired ROM Impairments RUE 0-50 shoulder flexion. M9 OT- IP Assessment and Plan Start: 05/27/19 17:37 Freq: Status: Active Protocol: Document 05/28/19 12:49 [facility] (Rec: 05/28/19 13:15 [id number] OT Summary Assessment and Plan Potential Rehabilitation Potential Fair Analytic Complexity at Evaluation Moderate Summary OT Impairments Pain,Range of Motion,Strength, Balance,Coordination, Functional Cognition, Functional Mobility,Self- Feeding,Grooming,Dressing, Toileting,Bathing,Toilet Transfers,Shower Transfers Progress Towards Goals Slow Progress due to Medical Issues,Slow Progress due to Activity Tolerance,Slow Progress due to Cognition Assessment Summary Pt still needing extensive assist for all ADl, functional mobility, and having visual neglect and possible right field cut as well. Pt will need extensive rehab prior to going home as current level to great for to provide. Goals Self-Feeding Goal Standby Assistance Grooming Goal Standby Assistance Dressing Goal Minimal Assistance Toileting Goal Minimal Assistance Bathing Goal Moderate Assistance Toilet Transfer Goal Minimal Assistance Shower Transfer Goal Moderate Assistance Patient/Caregiver Education Goal Caregiver Independent Assisting Patient OT-Other Goals Grooming goal while seated. Days to Meet Goals 19 Frequency of Treatment Frequency Of Treatment Once a Day Treatment Plan OT Treatment Plan ADL Training,Functional Cognition Training,Functional Mobility,Neuromuscular Re- education,Vision Retraining, Patient/Family Education, Discharge Planning Other Treatment Recommendations and Next Self-care/eating while seated. Treatment Focus Discharge Recommendations OT Discharge Recommendations SNF Rehab Home Equipment Needs To be determined.
--- NOTE | 2019-05-28 12:07 | PT.IPTN ---
Current Diagnoses Pneumonia, unspecified organism (05/25/19) Physical Therapy Treatment Note M2 PT-IP Current Condition Start: 05/27/19 15:54 Freq: NEEDED Status: Active Protocol: Document 05/27/19 11:15 LRN (Rec: 05/27/19 17:07 LRN [id number]) Physical Therapy Current Condition Current Condition Evaluation Date 05/27/19 Treatment Diagnosis difficulty breathing Onset Date 12 days ago Weight Bearing Status Allowed Weight Bearing Amount (enter % Ambulate as tolerated or #) (%) M3 PT-IP Subjective Start: 05/27/19 15:54 Freq: NEEDED Status: Active Protocol: Document 05/28/19 12:07 AB (Rec: 05/28/19 13:54 AB [id number]) Subjective Physical Therapy Visit Type Type Treatment Note Visit Start Time 12:07 Visit Stop Time 12:46 Total Visit Minutes 39 Number of AGRICULTURAL RESEARCH ENGINEER Visits 0 Physical Therapy Visit Comments Patient Comments pt agreeable to get out of bed ; family in room with pt Therapy Pain Assessment Pain Present Pain Present Denied Pain M4 PT-IP Mobility and Gait Start: 05/27/19 15:54 Freq: NEEDED Status: Active Protocol: Document 05/28/19 12:07 AB (Rec: 05/28/19 13:54 AB [id number]) PT-Bed Mobility Assessment Supine to Sit Supine to Sit Minimal Assistance,Head of Bed Elevated,Bedrails Scooting Scooting to Edge of Bed Contact Guard Assistance PT-Transfer Assessment Sit to and From Stand Sit to and from Stand Maximum Assistance,2 Person Assistance,Use of Upper Extremities Equipment Transfer Assistive Device Gait Belt Orthotic/Prosthetic Devices or Brace: No Transfers Transfer Destination Chair Transfer Technique Squat Pivot Transfer Ability Level of Assist Maximum Assistance,2 Person Assistance,Use of Upper Extremities Comments Mobility Comments pt completed supine to sit min A with HOB elevated and pulled on armrest of chair to assist and cues provided. pt was able to sit on EOB SBA to CGA and cues. pt can be impulsive. pt completed sit to stand from EOB max A x 2 and max cues. R knee buckling requiring max A x 2 to support and instructed to sit back on bed. attempted stand step pivot transfer with PT on R front side and OT on L front side of pt to assist pt required max A x 2 to stand but unable to take steps. assisted pt back down to the bed. completed squat pivot transfer bed to chair max A x 2 and max cues. positioned pt on the chair. call light and table placed within reach. Left pt with family in room. pt also stated that she has chronic issues on R knee and usually give out on her. spouse stated that R knee needs a knee replacement. M5 PT-IP Objective Assessments Start: 05/27/19 15:54 Freq: NEEDED Status: Active Protocol: Document 05/27/19 11:15 LRN (Rec: 05/27/19 17:07 LRN [id number]) Orientation Orientation/Cognition Level of Alertness Alert Orientation Name,Month,Year,Place Language Function Ability No Deficits Noted Safety Awareness Understands Safety Issues Gross Range of Motion Upper Extremity ROM Assessment Within Functional Limits Impairments AROM Lower Extremity ROM Assessment Right Impaired Impairments Generally RLE strength was 2/5 . Noted foot drop on R. Strength Upper Extremity Strength Assessment Right Impaired Shoulder Generally 4/5 Elbow Biceps 3/5, Triceps 4/5 Hand Slightly less on Right. Lower Extremity Strength Assessment Right Impaired Hip 2-/5 Knee 2-/5 Ankle 2-/5 Comments Strength Comments Weakness noted in RLE, dominant side. Sensation Assessment Sensation Gross Sensation Right UE Impaired,Left LE Impaired Sensation Description Hyperesthesia,Pain Comments Sensation Comments Pt extremely sensative to light touch and pressure. Muscle Tone Muscle Tone WNL No Comments Muscle Tone Comments Weakness of RLE. Other Assessments Other Other Assessments Nursing was monitoring cardiac care. M6 PT-IP Treatment Start: 05/27/19 15:54 Freq: NEEDED Status: Active Protocol: Document 05/28/19 12:07 AB (Rec: 05/28/19 13:54 AB [id number]) Physical Therapy Treatment Education Education Provided Safety M7 PT-IP Assessment and Plan Start: 05/27/19 15:54 Freq: NEEDED Status: Active Protocol: Document 05/28/19 12:07 AB (Rec: 05/28/19 13:54 AB [id number]) PT Summary Assessment and Plan Potential Rehabilitation Potential Good Summary Impairments Pain,ROM,Strength,Balance, Coordination,Sensation, Cognition,Bed Mobility, Transfers,Gait,Activity Tolerance Progress Towards Goals Slow Progress due to Medical Issues,Slow Progress due to Activity Tolerance Assessment Summary pt requires max A x 2 and max cues; (+) R knee buckling despite max A x 2 provided. pt will require SNF rehab to improve strength and mobility. Goals Bed Mobility Goal Moderate Assistance Transfer Goal Moderate Assistance Gait Goal Moderate Assistance,Front Wheel Walker Gait Distance 25' Days to Meet Goals 2 Frequency of Treatment Frequency Of Treatment Twice a Day Treatment Plan Physical Therapy Treatment Plan Bed Mobility Training,Transfer Training,Gait Training, Therapeutic Exercise,Balance Retraining,Neuromuscular Re-ed Other Recommendations and Next Treatment transfers, sitting/standing Focus balance/tolerance; activities to increase R side awareness Recommendations To Nursing Amount of Assist Needed 2 Person Assist,Mechanical Lift Discharge Recommendations PT Discharge Recommendations SNF Rehab
--- NOTE | 2019-05-28 13:21 | P.PN_ITS ---
Subjective Subjective Date Patient Seen: 05/28/19 Time Patient Seen: 09:00 Interval history: The pts main concern this morning was her persistent cough. She otherwise has no specific complaints. She is concerned that she does not remember many of the events from earlier in the hospitalization. As per the pts and granddaughter, she was able to get more sleep last night. She was intermittently agitated, and did receive both Haldol and Ativan overnight. They report that the Haldol made her feel like she had bugs crawling all over her, which the pt did not like. As per nursing, the pt had good response to both the Ativan and Haldol in terms of her agitation overnight. She received one dose of each during the night. Exam Vital Signs (past 8 hours): - 05/28/19 06:00 05/28/19 06:04 05/28/19 08:00 Temperature 98.2 F 97.8 F Pulse Rate 70 77 74 Respiratory Rate 18 23 Blood Pressure 145/73 H 145/73 H 113/68 Pulse Oximetry 97 96 05/28/19 12:00 Temperature 99.6 F Pulse Rate 67 Respiratory Rate 17 Blood Pressure 139/73 Pulse Oximetry 95 Fraction of Inspired Oxygen 0.50 Oxygen Delivery Method Room Air Oxygen Flow Rate 0 Narrative Exam Narrative: Gen: sitting up in bed, pleasantly conversant in complete sentences, breathing comfortably on room air CV: distant heart sounds, RRR, grade 2/6 systolic murmur Resp: coarse breath sounds throughout, crackles bilateral bases right > left, no wheezing Abd: soft, nontender, nondistended Ext: no edema Neuro: oriented to person, and time but not situation or place, CN II-XII intact, sensation intact bilaterally, 5/5 strength UE and LE bilaterally with some overall weakness but no focal deficit Objective Labs Result Diagrams: 05/28/19 08:48 05/28/19 08:48 Labs: Laboratory Results - last 24 hr 05/28/19 05/28/19 08:48 08:48 WBC 10.1 RBC 4.82 Hgb 13.9 Hct 41.3 MCV 85.8 MCH 28.9 MCHC 33.6 RDW 14.2 Plt Count 285 Neut % (Auto) 65.6 Lymph % (Auto) 22.3 L Nash % (Auto) 9.0 Eos % (Auto) 1.8 L Baso % (Auto) 1.3 Neut # (Auto) 6600 Lymph # (Auto) 2200 Nash # (Auto) 900 Eos # (Auto) 200 Baso # (Auto) 100 Sodium 138 Potassium 4.1 Chloride 98 Carbon Dioxide 33 H BUN 16 Creatinine 0.80 Estimated GFR > 60.0 BUN/Creatinine Ratio 20.0 Glucose 222 H Calcium 9.6 Magnesium 2.1 Total Bilirubin 0.5 AST 40 H ALT 27 Alkaline Phosphatase 148 H Total Protein 7.1 Albumin 3.7 Globulin 3.4 Albumin/Globulin Ratio 1.1 Assessment & Plan Assessment & Plan narrative: 78 year old woman with insulin-dependent type 2 DM, HTN, hypothyroidism, and CHF who presented with acute respiratory failure due to pneumonia and CHF exacerbation. Respiratory status improved after diuresis with Lasix and initiation of antibiotics, now on nasal canula. WBC count improved from 24 to 8. Due to Troponin rising after admission, the pt was started on Heparin drip. Echo then showed EF 20-25% (25-30% on repeat read) with global hypokinesis. Dr Dickey recommended transfer to [facility] for further care and possible intervention, but the pt declined transfer. After discussion with family and friends, the pt then decided to discontinue the Heparin drip. She did desire medical management of her CHF to maximize her life expectancy. 3 nights ago, the pt went into atrial fibrillation with RVR. She developed hypo tension and confusion. She was started on a Diltiazem drip. Cardioversion was discussed, but the pt converted to sinus rhythm prior to it being completed. Her confusion improved somewhat after her BP improved and HR remained in sinus. 2 nights ago the pt again went in the atrial fibrillation, HR remaining 120-130 range. She was again very agitated, however was awoken from her sleep. She converted to sinus without medications. Pt evaluated by Dr Fleming, Cardiology, yesterday. After review of much older medical records, determined EF not significantly changed from prior. 1) Altered mental status: Most consistent with delirium. Question baseline status. - Ativan 1mg q2hr PRN for agitation - Haldol 1mg q1hr PRN, however will try to avoid if possible - Seroquel 50mg qPM - Continue re-orientation by staff 2) Acute respiratory failure: Improving gradually, due to pneumonia and acute on chronic CHF. Now off oxygen. Repeat CXR today showing improving CHF. 3) Pneumonia: Persistent cough - Continue Ceftriaxone and Azithromycin, currently day 4 4) Acute on chronic CHF with hypertension: With severe reduction in EF, 25- 30%. Pt declined transfer to higher level of care, however now pt and family are reconsidering this. Still evidence of fluid overload on lung exam. BPs labile. - Cardiology consulted, Dr Fleming recommendations appreciated - Increase Losartan to 100mg daily - Continue home Carvedilol. Increase Carvedilol in the future as tolerated. - 10mg Hydralazine, TID with goal SBP < 120, and MAP 70-80. May need to increase. - 25mg Spirinolactone daily - Continue diuresis with IV Lasix. May be able to transition to PO Lasix tomorrow. Net loss over 5L thus far - Repeat Echo in 3-6 months 5) Atrial fibrillation with RVR, paroxysmal: Pt converted on IV Diltiazem 3 nights ago, another occurrence self-converted. - Continue Telemetry - Do not recommend anticoagulation due to Rastafarian and high fall risk - IV Amiodarone if persistent and hemodynamic compromise - Keep potassium > 4.0 and Mg > 2.0. Continue with scheduled repletion. Serena nue to trend BMP. 6) DM Type 2: Blood sugars stabiliing in acceptable range - Continue home insulin regimen 7) Hypothyroidism: TSH elevated. Question if taking medication at home. - Levothyroxine to 125mcg daily 8) Weakness/Neglect: Noted to have right side neglect by PT yesterday, leaning to the right when seated by nursing. Negative head CT last night. Appropriate and equal strength on exam today. Question if CVA/TIA. - MRI ordered for today, however pts does not wish to put her through the stress of this today, and cancelled - Recommend starting statin, family prefers to not start additional medications today. Will readdress tomorrow. - Could consider Aspirin, however risk of bleed as above FEN: Diabetic diet DVT prophylaxis: SCDs Code status: DNR/DNI after discussion with pts daughters, DPOAs, during this hospitalization Dispo: Pt with ongoing significant needs. Pending improvement delirium and continued diuresis. Pt will need longterm at d/c, question if she may end up needing memory care type unit due to delirium/cognitive decline. Quality VTE Deep Vein Thrombosis/Pulmonary Embolism Present on Admission: No
--- NOTE | 2019-05-28 16:15 | OT.IP.TRT ---
Current Diagnoses Pneumonia, unspecified organism (05/25/19) Occupational Therapy Treatment Note M2 OT-IP Current Condition Start: 05/27/19 17:37 Freq: Status: Active Protocol: Document 05/27/19 16:45 [facility] (Rec: 05/27/19 18:14 [facility] [id number]) Occupational Therapy Current Condition Current Condition Evaluation Date 05/27/19 Treatment Diagnosis Right sided weakness, CHF exacerbation, altered mental status Diagnosis Onset Date 05/25/19 Weight Bearing Status Weight Bearing Status Weight Bear as Tolerated M3 OT- IP Subjective and Pain Start: 05/27/19 17:37 Freq: Status: Active Protocol: Document 05/28/19 16:49 [facility] (Rec: 05/28/19 17:07 [facility] [id number]) OT- Subjective Occupational Therapy Visit Type Type Treatment Note Visit Start Time 16:15 Visit Stop Time 16:40 Total Visit Minutes 25 Notes Noted small skin tear when arriving to see pt. Notified nursing. Spoke to pt an hour prior to seeing pt again to see if pt willing to see therapy again. Pt states wanting to try. Occupational Therapy Visit Comments Patient Comments Pt's present for second session. Pt seen for second session today to help assess with PT for sliding board transfers and also to work on her sitting balance and trunk control. OT Pain Assessment Pain When Pain Assessed During Mobility Pain Present Pain Present Pain Reported M4 OT- IP ADL's Start: 05/27/19 17:37 Freq: Status: Active Protocol: Document 05/27/19 16:45 [facility] (Rec: 05/27/19 18:14 [facility] [id number]) OT [id number] Comments OT Self-Feeding Comments Not at meal time. OT ADL-Grooming Comments OT Grooming Comments Not able to perform as pt just tolerated doing transfer only at this time. OT ADL-Dressing Comments OT Dressing Comments At this time pt will require MAX A x2 for LB dressing needs due to poor balance, right neglect , and weakness and ataxia to move right side of her body. At this time not appropriate to stand for LB dressing needs due to weakness, poor balance and safety. For safety to do brief changes in the bed at this time. OT ADL-Toileting General Evaluation Toileting Ability Total Assistance Comments OT Toileting Comments Pt has monroe in. OT ADL-Bathing Comments OT Bathing Comments Sponge bathing more appropriate at this time. M5 OT- IP IADL's Start: 05/27/19 17:37 Freq: Status: Active Protocol: Document 05/27/19 16:45 [facility] (Rec: 05/27/19 18:14 [facility] [id number]) OT-Instrumental Activities of Daily Living Home Safety Awareness Awareness of Need for Assistance at Home Decreased Awareness Ability to Problem Solve Emergency Unable to Problem Solve Situations Home Safety Comments At this time pt not cognitively or physically capable to be able to care for herself for any ADL's and IADL needs. M6 OT- IP Functional Cognition Start: 05/27/19 17:37 Freq: Status: Active Protocol: Document 05/28/19 16:49 [facility] (Rec: 05/28/19 17:07 [facility] [id number]) Cognitive Factors Limiting Selfcare Function Cognitive Ability Level of Alertness Alert,Confusional State Patient Orientation Name Attention Span Ability Capable of Focused Attention, Unable to Sustain Attention Ability to Follow Commands Able to Follow One Step Commands with Increased Time, Able to Follow One Step Commands with Repetition Memory Description Immediate Impaired,Short Term Impaired Safety Awareness Underestimates Need for Assistance Problem Solving Ability Unable to Identify Errors, Needs Assist to Identify Solutions Executive Function Ability Unable to Switch Focus,Unable to Filter Distractions,Unable to Organize Plans,Unable to Remember Details Cognitive Comments Cognitive Assessment Comments Pt easily getting confused and not comprehending information well. When asking pt to scoot forwards in the recliner , pt pointing to the bed and states, this is not moving. Pt still having difficulty dissociating her movements. Pt however now able to states her needs and preferences, wanting to sit up in the chair for dinner and wanting the head of the bed up more due to pt coughing. Pt also tends to be impulsive and wanting to try to move, however not aware that she is safe to move without assistance. Pt continues to have poor safety awareness. M7 OT- IP Mobility and Balance Start: 05/27/19 17:37 Freq: Status: Active Protocol: Document 05/28/19 16:49 [facility] (Rec: 05/28/19 17:07 [facility] [id number]) OT- Bed Mobility Assessment Scooting Scooting to Edge of Bed MAX,2 Person Assistance OT-Transfer Assessment Transfers Transfer Ability Maximum Assistance,2 Person Assistance Technique Transfer Destination Bed,Chair Transfer Technique Lateral Scoot Devices Transfer Assistive Devices Gait Belt,Sliding Board Comments Mobility Comments Pt MAXA x2 to help scoot forwards and needing MAX A vc, visual and tactile cues to follow commands. Pt dependent for sliding board placement and MAX A X 2 , one person to help block her legs and another to assist to slide pt over with use of green pad, pt able to minimally assist with transfer. In addition bed rotated 5 degrees to help lower it for sliding board transfer to increase ease for pt to help use her legs to push. At this time for nursing, a matilde lift is recommended. Pt needing assist for dynamic balance for sliding board transfer. OT- Balance Assessment Sitting Balance and Reactions Static Sitting Balance Ability Fair Dynamic Sitting Balance Ability Poor Standing Balance and Reactions Static Standing Balance Ability Poor Dynamic Standing Balance Ability Poor Comments Other Balance Tests/Deviations/Treatment Pt still has the tendency to : keep head turned to the left which causes her to lean to the left as well due to decreased vision on the right. M8 OT- IP Objective Assessments Start: 05/27/19 17:37 Freq: Status: Active Protocol: Document 05/28/19 12:49 [facility] (Rec: 05/28/19 13:15 [facility] [id number]) OT Gross Range of Motion Upper Extremity Range of Motion Assessment Right Impaired ROM Impairments RUE 0-50 shoulder flexion. M9 OT- IP Assessment and Plan Start: 05/27/19 17:37 Freq: Status: Active Protocol: Document 05/28/19 16:49 [facility] (Rec: 05/28/19 17:07 [facility] [id number]) OT Summary Assessment and Plan Potential Rehabilitation Potential Fair Analytic Complexity at Evaluation Moderate Summary OT Impairments Pain,Range of Motion,Strength, Balance,Coordination, Functional Cognition, Functional Mobility,Self- Feeding,Grooming,Dressing, Toileting,Bathing,Toilet Transfers,Shower Transfers Progress Towards Goals Slow Progress due to Medical Issues,Slow Progress due to Activity Tolerance,Slow Progress due to Cognition Assessment Summary Pt appeared more alert but still confused of how to move her body and ability to fully understand how to move her body especially for the right side. Pt will benefit from skilled rehab as still needing extensive assist for all needs. Goals Self-Feeding Goal Standby Assistance Grooming Goal Standby Assistance Dressing Goal Minimal Assistance Toileting Goal Minimal Assistance Bathing Goal Moderate Assistance Toilet Transfer Goal Minimal Assistance Shower Transfer Goal Moderate Assistance Patient/Caregiver Education Goal Caregiver Independent Assisting Patient OT-Other Goals Grooming goal while seated. Days to Meet Goals 18 Frequency of Treatment Frequency Of Treatment Once a Day Treatment Plan OT Treatment Plan ADL Training,Functional Cognition Training,Functional Mobility,Neuromuscular Re- education,Vision Retraining, Patient/Family Education, Discharge Planning Discharge Recommendations OT Discharge Recommendations SNF Rehab Home Equipment Needs To be determined.
--- NOTE | 2019-05-28 16:15 | PT.IPTN ---
Current Diagnoses Pneumonia, unspecified organism (05/25/19) Physical Therapy Treatment Note M2 PT-IP Current Condition Start: 05/27/19 15:54 Freq: NEEDED Status: Active Protocol: Document 05/27/19 11:15 [facility] (Rec: 05/27/19 17:07 [facility] [id number]) Physical Therapy Current Condition Current Condition Evaluation Date 05/27/19 Treatment Diagnosis difficulty breathing Onset Date 12 days ago Weight Bearing Status Allowed Weight Bearing Amount (enter % Ambulate as tolerated or #) (%) M3 PT-IP Subjective Start: 05/27/19 15:54 Freq: NEEDED Status: Active Protocol: Document 05/28/19 16:15 [facility] (Rec: 05/28/19 17:25 [facility] [id number]) Subjective Physical Therapy Visit Type Type Treatment Note Visit Start Time 16:15 Visit Stop Time 16:40 Total Visit Minutes 25 Number of BEATER OUT Visits 0 Physical Therapy Visit Comments Patient Comments pt agreeable to do PT M4 PT-IP Mobility and Gait Start: 05/27/19 15:54 Freq: NEEDED Status: Active Protocol: Document 05/28/19 16:15 [facility] (Rec: 05/28/19 17:25 [facility] [id number]) PT-Bed Mobility Assessment Sit to Supine Sit to Supine Maximum Assistance,2 Person Assistance Scooting Scooting to Edge of Bed Maximum Assistance,Dependent Scooting Up and Down in Bed Dependent PT-Transfer Assessment Equipment Transfer Assistive Device Gait Belt Orthotic/Prosthetic Devices or Brace: No Transfers Transfer Destination Bed Transfer Technique slide board Transfer Ability Level of Assist Maximum Assistance,2 Person Assistance,Use of Upper Extremities Comments Mobility Comments Pt's granddaughter this morning stated that pt does not like using the mechanical lift for transfers. pt agreed for PT to come back for an afternoon PT session and possible transfer back to bed so that she will not use the mechanical lift. checked on pt and pt sitting on chair and agreed to do PT. education pt on slide board transfer and pt agreed to do slide board transfer. instructed to scoot forward on the chair and pt required max A x 2 and max cues. pt says she is so confused. positioned slide board on pt and required max A x 2 and max cues to complete transfer to the bed. pt completed sit to supine max A x 2 and max cues. positioned pt on the bed. pt then stated that she does not want to be on the bed and wants to get back to the chair. informed pt that the nurse will transfer her to the chair but will use the mechanical lift and pt agreed. Left pt with NAC and nurse. M5 PT-IP Objective Assessments Start: 05/27/19 15:54 Freq: NEEDED Status: Active Protocol: Document 05/27/19 11:15 [facility] (Rec: 05/27/19 17:07 [facility] [id number]) Orientation Orientation/Cognition Level of Alertness Alert Orientation Name,Month,Year,Place Language Function Ability No Deficits Noted Safety Awareness Understands Safety Issues Gross Range of Motion Upper Extremity ROM Assessment Within Functional Limits Impairments AROM Lower Extremity ROM Assessment Right Impaired Impairments Generally RLE strength was 2/5 . Noted foot drop on R. Strength Upper Extremity Strength Assessment Right Impaired Shoulder Generally 4/5 Elbow Biceps 3/5, Triceps 4/5 Hand Slightly less on Right. Lower Extremity Strength Assessment Right Impaired Hip 2-/5 Knee 2-/5 Ankle 2-/5 Comments Strength Comments Weakness noted in RLE, dominant side. Sensation Assessment Sensation Gross Sensation Right UE Impaired,Left LE Impaired Sensation Description Hyperesthesia,Pain Comments Sensation Comments Pt extremely sensative to light touch and pressure. Muscle Tone Muscle Tone WNL No Comments Muscle Tone Comments Weakness of RLE. Other Assessments Other Other Assessments Nursing was monitoring cardiac care. M6 PT-IP Treatment Start: 05/27/19 15:54 Freq: NEEDED Status: Active Protocol: Document 05/28/19 16:15 [facility] (Rec: 05/28/19 17:25 [facility] [id number]) Physical Therapy Treatment Education Education Provided Safety M7 PT-IP Assessment and Plan Start: 05/27/19 15:54 Freq: NEEDED Status: Active Protocol: Document 05/28/19 16:15 [facility] (Rec: 05/28/19 17:25 AB [id number]) PT Summary Assessment and Plan Potential Rehabilitation Potential Fair Summary Impairments Pain,ROM,Strength,Balance, Coordination,Sensation,Tone, Cognition,Bed Mobility, Transfers,Gait,Activity Tolerance Assessment Summary pt continues to require 2 person max A with all tasks and max cues for techniques and safety. pt also has confusion and requires repeated cues and instructions . pt will require SNF rehab to improve strength and functional mobility. Goals Bed Mobility Goal Moderate Assistance Transfer Goal Moderate Assistance Gait Goal Moderate Assistance,Front Wheel Walker Gait Distance 25' Days to Meet Goals 2 Frequency of Treatment Frequency Of Treatment Twice a Day Treatment Plan Physical Therapy Treatment Plan Bed Mobility Training,Transfer Training,Gait Training, Therapeutic Exercise,Balance Retraining,Neuromuscular Re-ed Other Recommendations and Next Treatment transfers, sitting/standing Focus balance/tolerance; activities to increase R side awareness Recommendations To Nursing Amount of Assist Needed 2 Person Assist,Mechanical Lift Discharge Recommendations PT Discharge Recommendations SNF Rehab
[2019-05-28] MEDS: SODIUM CHLORIDE 0.9% FLUSH 10 ML IV (20:42)
[2019-05-28] MEDS: QUETIAPINE 25 MG TABLET 50 MG PO (20:42)
--- NOTE | 2019-05-28 23:26 | PC.NURSE ---
Evening Shift Note- Patient alert with forgetfullness and confusion. Patient pleasent, calm, and cooperative most of the evening. Patient toojk all evening medications without issue. patient became restless and aggitated at 2200. Patient appeared to be asleep while flinging legs over side of bed and trying to get up, twitching legs and arms, and pulling at monroe. PRN IV ativan given as ordered. Patient remains restless and fidgiting. Safety measures in place. Patients granddaugher in room at this time. bed alarm activate. call mejia and phone within reach. Will continue to monitor.
--- NOTE | 2019-05-29 03:36 | PC.NURSE ---
Patient sleeps approximately an hour at a time and after awakening is confused, combative, restless and pulling at multiple lines ie. IV line, monroe catheter and telemetry leads. The OFF TRACK BETTING MANAGER, Taylor Alvarez and Michael attempted to reorient and reduce the environmental stimuli by repositioning, applying warm blankets and pillows and lowering the lights in the room.
[2019-05-29] MEDS: CEFTRIAXONE 1 GM/50 ML FROZ.PIGGY IV ×2 (04:40→16:53)
[2019-05-29 05:06] VITALS: BP 161/76; PULSE 94; RESP 20; TEMP 36.3; O2SAT 93
[2019-05-29] MEDS: AZITHROMYCIN 250 MG in DEXTROSE 5% IN WATER 250 ML IV (05:17)
[2019-05-29 06:02] VITALS: BP 161/76; PULSE 76
[2019-05-29] MEDS: HYDRALAZINE 10 MG TABLET PO ×2 (06:02→20:08)
[2019-05-29] MEDS: LEVOTHYROXINE 125 MCG TABLET PO (06:02)
[2019-05-29] MEDS: guaiFENesin ER 600 MG TAB 1200 MG PO ×2 (09:14→20:07)
[2019-05-29] MEDS: POTASSIUM CHLORIDE 20 MEQ TAB 40 MEQ PO (09:15)
[2019-05-29] MEDS: MAGNESIUM OXIDE 400 MG TABLET PO (09:16)
[2019-05-29] MEDS: SPIRONOLACTONE 25 MG TABLET PO (09:16)
[2019-05-29] MEDS: LOSARTAN 50 MG TABLET 100 MG PO (09:16)
[2019-05-29] MEDS: carvediloL 6.25 MG TABLET PO (09:16)
[2019-05-29] MEDS: OXYBUTYNIN 5 MG ER TAB PO (09:17)
[2019-05-29] MEDS: SODIUM CHLORIDE 0.9% FLUSH 10 ML IV ×2 (09:17→20:08)
--- NOTE | 2019-05-29 09:18 | CM.DPC ---
DCP Cont: Left a message with Taylor in admissions at [facility] regarding insurance authorization. According to nursing notes, patient was having some periods of agitation through the night. Have not yet heard back from daughter, Rina, left a message for her to call this assistant case manager yesterday. Will attempt to reach out to family again today. At this time, plan is still for care home, but [facility] nurse will need to see patient tomorrow, due to her agitation that she has been having at night. Awaiting to hear back from [facility] today as well. P: DCP to continue to follow and be available for resources. Will attempt to reach out again with family today. Mikaela Kirk RN/Sdv Pilot/Navigator/Dds Operator
[2019-05-29] MEDS: INSULIN ASPART 100 UNIT/ML INSULN PEN SUBCUT ×2 (09:20→12:10)
[2019-05-29] MEDS: INSULIN GLARGINE 100 UNIT/ML 3ML PEN 40 UNIT SUBCUT (09:20)
[2019-05-29 10:16] VITALS: BP 142/75; PULSE 80; RESP 16; O2SAT 91
--- NOTE | 2019-05-29 10:18 | PT.IPTN ---
Current Diagnoses Pneumonia, unspecified organism (05/25/19) Physical Therapy Treatment Note M2 PT-IP Current Condition Start: 05/27/19 15:54 Freq: NEEDED Status: Active Protocol: Document 05/27/19 11:15 [facility] (Rec: 05/27/19 17:07 [facility] [id number]) Physical Therapy Current Condition Current Condition Evaluation Date 05/27/19 Treatment Diagnosis difficulty breathing Onset Date 12 days ago Weight Bearing Status Allowed Weight Bearing Amount (enter % Ambulate as tolerated or #) (%) M3 PT-IP Subjective Start: 05/27/19 15:54 Freq: NEEDED Status: Active Protocol: Document 05/29/19 10:18 [facility] (Rec: 05/29/19 13:38 [facility] [id number]) Subjective Physical Therapy Visit Type Type Treatment Note Visit Start Time 10:18 Visit Stop Time 10:46 Total Visit Minutes 28 Number of CODING FILE CLERK Visits 1 Physical Therapy Visit Comments Patient Comments Pt requesting to go to [facility] for BM. M4 PT-IP Mobility and Gait Start: 05/27/19 15:54 Freq: NEEDED Status: Active Protocol: Document 05/29/19 10:18 [facility] (Rec: 05/29/19 13:38 [facility] [id number]) PT-Bed Mobility Assessment Supine to Sit Supine to Sit Moderate Assistance,1 Person Assistance,Head of Bed Elevated,Bedrails Scooting Scooting to Edge of Bed Maximum Assistance,Dependent PT-Transfer Assessment Sit to and From Stand Sit to and from Stand Maximum Assistance,2 Person Assistance,Use of Upper Extremities Equipment Transfer Assistive Device None,Gait Belt,Front Wheeled Walker Orthotic/Prosthetic Devices or Brace: No Transfers Transfer Destination Chair,Bedside Commode Transfer Technique Squat Pivot Transfer Ability Level of Assist Maximum Assistance,2 Person Assistance,Use of Upper Extremities Comments Mobility Comments Pt required Max A x2 for transfer to BSC with FWW, pt required max cues for step sequencing and wt shifting. Pt required Max A x2 to stand with FWW as RN performed pericare. Pt then sat to rest on BSC, once pt had adequate rest time, pt performed squat pivot transfer with RN assisting with guiding hips into chair. Left pt in chair with chair alarm on, call light within reach and all needs within reach. M5 PT-IP Objective Assessments Start: 05/27/19 15:54 Freq: NEEDED Status: Active Protocol: Document 05/27/19 11:15 [facility] (Rec: 05/27/19 17:07 [facility] [id number]) Orientation Orientation/Cognition Level of Alertness Alert Orientation Name,Month,Year,Place Language Function Ability No Deficits Noted Safety Awareness Understands Safety Issues Gross Range of Motion Upper Extremity ROM Assessment Within Functional Limits Impairments AROM Lower Extremity ROM Assessment Right Impaired Impairments Generally RLE strength was 2/5 . Noted foot drop on R. Strength Upper Extremity Strength Assessment Right Impaired Shoulder Generally 4/5 Elbow Biceps 3/5, Triceps 4/5 Hand Slightly less on Right. Lower Extremity Strength Assessment Right Impaired Hip 2-/5 Knee 2-/5 Ankle 2-/5 Comments Strength Comments Weakness noted in RLE, dominant side. Sensation Assessment Sensation Gross Sensation Right UE Impaired,Left LE Impaired Sensation Description Hyperesthesia,Pain Comments Sensation Comments Pt extremely sensative to light touch and pressure. Muscle Tone Muscle Tone WNL No Comments Muscle Tone Comments Weakness of RLE. Other Assessments Other Other Assessments Nursing was monitoring cardiac care. M6 PT-IP Treatment Start: 05/27/19 15:54 Freq: NEEDED Status: Active Protocol: Document 05/28/19 16:15 [facility] (Rec: 05/28/19 17:25 AB [id number]) Physical Therapy Treatment Education Education Provided Safety M7 PT-IP Assessment and Plan Start: 05/27/19 15:54 Freq: NEEDED Status: Active Protocol: Document 05/29/19 10:18 [facility] (Rec: 05/29/19 13:38 [facility] [id number]) PT Summary Assessment and Plan Summary Progress Towards Goals Slow Progress due to Medical Issues,Slow Progress due to Activity Tolerance Assessment Summary Pt requires Max A x2 for all mobility and transfers at this time. Pt with increased fatigue required Max A x2 for transfer to BSC and in standing during pericare, then Max A/dependent for squat pivot transfer to chair. Pt will require SNF rehab to improve strength and functional mobility. Goals Bed Mobility Goal Moderate Assistance Transfer Goal Moderate Assistance Gait Goal Moderate Assistance,Front Wheel Walker Gait Distance 25' Days to Meet Goals 2 Frequency of Treatment Frequency Of Treatment Twice a Day Treatment Plan Physical Therapy Treatment Plan Bed Mobility Training,Transfer Training,Gait Training, Therapeutic Exercise,Balance Retraining,Neuromuscular Re-ed Other Recommendations and Next Treatment transfers, sitting/standing Focus balance/tolerance; activities to increase R side awareness Recommendations To Nursing Amount of Assist Needed 2 Person Assist,Mechanical Lift Discharge Recommendations PT Discharge Recommendations SNF Rehab
[2019-05-29] MEDS: ACETAMINOPHEN 325 MG TABLET 650 MG PO ×2 (12:09→22:12)
[2019-05-29] MEDS: FUROSEMIDE 40 MG/4 ML VIAL IV (12:14)
--- NOTE | 2019-05-29 12:17 | PM.PN.1 ---
Subjective Subjective Date Patient Seen: 05/29/19 Time Patient Seen: 09:00 Interval history: The pt was resting peacefully when entered the room, and her requested that I not wake her this morning. He reports that overall she had a better night last night than previous evenings. She did not start to become more agitated until around 10pm. She was more redirectable than previous nights. She did receive one dose of Ativan overnight. Her cough is still bothering her frequently. Nursing has noticed a faint wheeze occasionally. Exam Vital Signs (past 8 hours): - 05/29/19 05:06 05/29/19 06:02 05/29/19 10:16 Temperature 97.4 F L Pulse Rate 94 H 76 80 Respiratory Rate 20 16 Blood Pressure 161/76 H 161/76 H 142/75 H Pulse Oximetry 93 91 Fraction of Inspired Oxygen 0.50 Oxygen Delivery Method Room Air Oxygen Flow Rate 0 Narrative Exam Narrative: Gen: sitting up in bed, sleeping peacefully, breathing comfortably on room air CV: distant heart sounds, RRR, grade 2/6 systolic murmur Resp: coarse breath sounds throughout but significantly improved from prior, no crackles, very faint end expiratory wheeze Abd: soft, nontender, nondistended Ext: no edema Neuro: not assessed today Objective Labs Result Diagrams: 05/28/19 08:48 05/28/19 08:48 Assessment & Plan Assessment & Plan narrative: 78 year old woman with insulin-dependent type 2 DM, HTN, hypothyroidism, and CHF who presented with acute respiratory failure due to pneumonia and CHF exacerbation. Respiratory status improved after diuresis with Lasix and initiation of antibiotics. Due to Troponin rising after admission, the pt was started on Heparin drip. Echo then showed EF 20-25% (25-30% on repeat read) with global hypokinesis. Dr Dickey recommended transfer to [facility] for further care and possible intervention, but the pt declined transfer. After discussion with family and friends, the pt then decided to discontinue the Heparin drip. She did desire medical management of her CHF to maximize her life expectancy. 4 nights ago, the pt went into atrial fibrillation with RVR. She developed hypotension and confusion. She was started on a Diltiazem drip. Cardioversion was discussed, but the pt converted to sinus rhythm prior to it being completed. Her confusion improved somewhat after her BP improved and HR remained in sinus. 3 nights ago the pt again went in the atrial fibrillation, HR remaining 120-130 range. She was again very agitated, however was awoken from her sleep. She converted to sinus without medications. Pt evaluated by Dr Fleming, Cardiology. After review of much older medical records, determined EF not significantly changed from prior. Overall respiratory status now stabilized. No episode of a-fib in the last 2 days. Main issues is pts delirium. 1) Altered mental status: Most consistent with delirium. Question baseline status. - Ativan 1mg q2hr PRN for agitation - Haldol 1mg q1hr PRN, however will try to avoid if possible - Increase to Seroquel 100mg qPM - Continue re-orientation by staff - Repeat U/A today 2) Acute respiratory failure: Resolved, due to pneumonia and acute on chronic CHF. Continues off oxygen. Repeat CXR yesterday showing improving CHF. 3) Pneumonia: Persistent cough - Continue Ceftriaxone, currently day 5 - D/C Azithromycin, completed treatment - RT to evaluate due to wheezing, okay for treatments if appropriate 4) Acute on chronic CHF with hypertension: With severe reduction in EF, 25-30%. Pt declined transfer to higher level of care, however now pt and family are reconsidering this. Lung exam considerably improved, believe more euvolemic at this point. BPs remain elevated above goal. - Cardiology consulted, Dr Fleming recommendations appreciated - Losartan to 100mg daily - Increase Carvedilol to 12.5mg daily - 10mg Hydralazine, TID with goal SBP < 120, and MAP 70-80. May need to increase. - 25mg Spirinolactone daily - Transition to PO Lasix 40mg BID. Net loss 8L thus far - Repeat Echo in 3-6 months 5) Atrial fibrillation with RVR, paroxysmal: Pt converted on IV Diltiazem 4 nights ago, another occurrence self-converted. - Continue Telemetry - Do not recommend anticoagulation due to [facility] and high fall risk - IV Amiodarone if persistent and hemodynamic compromise - Keep potassium > 4.0 and Mg > 2.0. Continue with scheduled repletion. Continue to trend BMP. 6) DM Type 2: Blood sugars stabiliing in acceptable range - Continue home insulin regimen 7) Hypothyroidism: TSH elevated. Question if taking medication at home. - Levothyroxine to 125mcg daily 8) Weakness/Neglect: Noted to have right side neglect by PT yesterday, leaning to the right when seated by nursing. Negative head CT. Question if CVA. - MRI ordered, however pts did not wish to put her through the stress of this today, and cancelled - Recommend starting statin, family prefers to not start additional medications at this point. Will continue to address. - Could consider Aspirin, however risk of bleed as above FEN: Diabetic diet DVT prophylaxis: SCDs Code status: DNR/DNI after discussion with pts daughters, DPOAs, during this hospitalization Dispo: Pt with ongoing significant needs. Pending improvement delirium. Pt reaching stability from medical point of view, aside from delirium. Pt will need long term at d/c, question if she may end up needing memory care type unit due to delirium/cognitive decline. [facility] coming to evaluate tomorrow. Delfina Mcclelland also a possibility. Appreciate ongoing work from Care Management to arrange. Quality VTE Deep Vein Thrombosis/Pulmonary Embolism Present on Admission: No
[2019-05-29 12:29] LABS: Appearance Urine UA CLEAR; Bilirubin Urine UA NEGATIVE (NEGATIVE); Color Urine UA YELLOW; Glucose Urine UA NEGATIVE (Negative); Ketones Urine UA NEGATIVE (NEGATIVE); Leukocyte Esterase Urine UA 1+ (NEGATIVE); Nitrite Urine UA NEGATIVE (Negative); Occult Blood Urine UA 1+ (Negative); Protein Urine UA NEGATIVE (Negative); Specific Gravity Urine UA <=1.005 (1.000-1.035); Urobilinogen Urine UA 0.2 E.U./dL (0.2)
[2019-05-29 12:31] LABS: Blood Urea Nitrogen 20 mg/dL (7-17); Calcium 9.9 mg/dL (8.4-10.2); Carbon Dioxide 31 mmol/L (22-32); Chloride 99 mmol/L (98-107); Estimated Glomerular Filt Rate 53.3 mL/min (>60); Glucose 194 mg/dL (80-110); HEMOLYSIS < 15 (0-50); Magnesium 2.4 mg/dL (1.6-2.3); Potassium 4.6 mmol/L (3.4-5.1); Sodium 137 mmol/L (137-145)
[2019-05-29 12:43] LABS: RBC Urine 5-10/HPF (0-5/HPF); Renal Epithelial Cells Urine 0-1/HPF (0-1/HPF); Squamous Epithelial Cell Urine 0-1 /HPF (0-5/HPF); WBC Urine 5-10/HPF (0-5/HPF)
[2019-05-29 12:44] LABS: Amorphous Sediment Urine 1+; Bacteria Urine Few (2-10); Culture Indicated Urine Specimen Cultured; Mucus Urine 1+ (Negative)
--- NOTE | 2019-05-29 13:01 | PT.IPTN ---
Current Diagnoses Pneumonia, unspecified organism (05/25/19) Physical Therapy Treatment Note M2 PT-IP Current Condition Start: 05/27/19 15:54 Freq: NEEDED Status: Active Protocol: Document 05/27/19 11:15 LRN (Rec: 05/27/19 17:07 LRN [id number]) Physical Therapy Current Condition Current Condition Evaluation Date 05/27/19 Treatment Diagnosis difficulty breathing Onset Date 12 days ago Weight Bearing Status Allowed Weight Bearing Amount (enter % Ambulate as tolerated or #) (%) M3 PT-IP Subjective Start: 05/27/19 15:54 Freq: NEEDED Status: Active Protocol: Document 05/29/19 13:01 CLB (Rec: 05/29/19 13:57 CLB [id number]) Subjective Physical Therapy Visit Type Type Treatment Note Visit Start Time 13:01 Visit Stop Time 13:17 Total Visit Minutes 16 Number of [employer] Visits 1 Physical Therapy Visit Comments Patient Comments Pt requesting to return to bed . M4 PT-IP Mobility and Gait Start: 05/27/19 15:54 Freq: NEEDED Status: Active Protocol: Document 05/29/19 13:01 CLB (Rec: 05/29/19 13:57 CLB [id number]) PT-Bed Mobility Assessment Sit to Supine Sit to Supine Total Assistance PT-Transfer Assessment Comments Mobility Comments Pt with increased fatigue after sitting in chair for two hours requesting to return to bed. Pt and family agreeable to use mechanical lift for safety as pt was very tired. Pt able to transfer from chair to bed with mechanical lift, pt tolerated this transfer well. Pt's daughter and granddaughter were present and agreeable. Pt left in bed with alarm on, call light within reach and family present. M5 PT-IP Objective Assessments Start: 05/27/19 15:54 Freq: NEEDED Status: Active Protocol: Document 05/27/19 11:15 LRN (Rec: 05/27/19 17:07 LRN [id number]) Orientation Orientation/Cognition Level of Alertness Alert Orientation Name,Month,Year,Place Language Function Ability No Deficits Noted Safety Awareness Understands Safety Issues Gross Range of Motion Upper Extremity ROM Assessment Within Functional Limits Impairments AROM Lower Extremity ROM Assessment Right Impaired Impairments Generally RLE strength was 2/5 . Noted foot drop on R. Strength Upper Extremity Strength Assessment Right Impaired Shoulder Generally 4/5 Elbow Biceps 3/5, Triceps 4/5 Hand Slightly less on Right. Lower Extremity Strength Assessment Right Impaired Hip 2-/5 Knee 2-/5 Ankle 2-/5 Comments Strength Comments Weakness noted in RLE, dominant side. Sensation Assessment Sensation Gross Sensation Right UE Impaired,Left LE Impaired Sensation Description Hyperesthesia,Pain Comments Sensation Comments Pt extremely sensative to light touch and pressure. Muscle Tone Muscle Tone WNL No Comments Muscle Tone Comments Weakness of RLE. Other Assessments Other Other Assessments Nursing was monitoring cardiac care. M6 PT-IP Treatment Start: 05/27/19 15:54 Freq: NEEDED Status: Active Protocol: Document 05/28/19 16:15 AB (Rec: 05/28/19 17:25 AB [id number]) Physical Therapy Treatment Education Education Provided Safety M7 PT-IP Assessment and Plan Start: 05/27/19 15:54 Freq: NEEDED Status: Active Protocol: Document 05/29/19 13:01 CLB (Rec: 05/29/19 13:57 CLB [id number]) PT Summary Assessment and Plan Summary Progress Towards Goals Slow Progress due to Medical Issues,Slow Progress due to Activity Tolerance Assessment Summary Pt with increased fatigue required mechanical lift to bed. Spoke with PT Lorrie and pt will be seen one time a day . Pt's daughter was informed and daughter agreeable. Pt will require SNF rehab to improve strength and functional mobility. Goals Bed Mobility Goal Moderate Assistance Transfer Goal Moderate Assistance Gait Goal Moderate Assistance,Front Wheel Walker Gait Distance 25' Days to Meet Goals 2 Frequency of Treatment Frequency Of Treatment Once a Day Recommendations To Nursing Amount of Assist Needed 2 Person Assist,Mechanical Lift Discharge Recommendations PT Discharge Recommendations SNF Rehab
[2019-05-29 14:00] VITALS: BP 93/60; PULSE 82; RESP 17; TEMP 36.8; O2SAT 91
--- NOTE | 2019-05-29 14:21 | PC.NURSE ---
AM NOTE - pt restlessly moving during bedside shift report, gown removed, pulling at [place], repositioned for distraction and replaced gown, pt is oriented self and knows she is in hospital, spouse is at bedside and when more awake and ready for breakfast, pt interaction was angry, when staff at bedside laughed, pt responded angrily why are you laughing at me, explained we were attempting humor and not at her, she did calm and when set up able to feed self w/some assistance, pt does respond angrily if her l foot is touched, spouse explained that he did accidently step on that foot prior to admission, no bruising or opening to skin noted, after meal pt felt need for bm and with assistance from physical therapy, slowly assisted to dangle position and x2 person w/PT, gait belt, transferred to bsc w/med brown formed stool, pericare performed, barrier cream to buttock area w/blanchable pink, waffle cushion placed in chair and pt stood and pivoted to chair, discussed pt congested cough, no sputum, bs coarse w/Dr. Grubbs and RT eval ordered, after small qty po at lunch, pt appeared tired and restless, given 650mg po tylenol and with help seamer elastic band and phys therapy, slowly hoyered back bed, pt lena well w/reassurance from family and assistance to maintain comfort and reduce anxiety.
[2019-05-29 16:44] VITALS: BP 134/75; PULSE 72; RESP 18; TEMP 36.5; O2SAT 93
[2019-05-29] MEDS: carvediloL 6.25 MG TABLET 12.5 MG PO (16:53)
[2019-05-29] MEDS: FUROSEMIDE 40 MG TABLET PO (16:53)
[2019-05-29] MEDS: QUETIAPINE 25 MG TABLET 100 MG PO (20:07)
[2019-05-29 20:15] VITALS: BP 135/70; PULSE 73; RESP 16; TEMP 36.6; O2SAT 92
[2019-05-30] VITALS (15 sets, daily range): BP systolic 93–133; BP diastolic 45–75; PULSE 58–82; RESP 16–20; TEMP 36.4–37.1; O2SAT 91–95
--- NOTE | 2019-05-30 02:26 | PC.NURSE ---
Addendum entered by Hillary Santos R.N. 05/30/19 22:44: 0730 Weight down > 2kg so requested day shift rezero bed when patient up and then reweigh patient. Addendum entered by Hillary Santos R.N. 05/30/19 06:04: O2 sat this morning when just awakened was 89% so placed back on oxygen at 1L/min with sat increasing to 94%. Original Note: Patient is alert but oriented only to self, birthdate, age and year. Breath sounds diminished but CTA although has an occasional moist sounding cough. RA sat is 92%. HR irregular but on 0000 telemetry reading was SR w/BBB. Denies nausea. Incontinent of stool. Indwelling catheter is patent. Is able to turn self; assisted if noted to not reposition self q2h. Has bruising with small abrasions on left UE and bruise on left LE. Complains of left foot discomfort when pressure applied but otherwise denies pain; spouse reports he stepped on patient's foot prior to admission. No bruising or swelling noted. Wearing bilateral SCD's. Very calm and conversing pleasantly with staff at this time. Fall risk score is high and bed alarm is activated. Spouse rooming in.
[2019-05-30] MEDS: SODIUM CHLORIDE 0.9% 250 ML 21 ML IV (03:57)
[2019-05-30] MEDS: CEFTRIAXONE 1 GM/50 ML FROZ.PIGGY IV ×2 (03:57→15:46)
[2019-05-30] MEDS: SODIUM CHLORIDE 0.9% FLUSH 10 ML IV ×3 (03:57→21:15)
[2019-05-30] MEDS: HYDRALAZINE 10 MG TABLET PO ×2 (05:55→13:50)
[2019-05-30] MEDS: LEVOTHYROXINE 125 MCG TABLET PO (05:55)
--- NOTE | 2019-05-30 07:22 | PM.PN.1 ---
Subjective Subjective Date Patient Seen: 05/30/19 Time Patient Seen: 07:22 Interval history: Patient seen and evaluated. She says she is doing well feeling fine wants to get up and walk be mobile and active but she is complaining of right great toe pain and discomfort she feels like some he may have stepped on her toe. Although she has lots of motivation to get up and move. She is very weak and has a difficult time even working with physical therapy. Her confusion is resolving improving today. Although definitely not back at baseline sterile has some agitation and some anger. Medications have helped of course. Do have their side effects so family is on board with this and aware of that. Heart rates been great overnight still on telemetry no new AFib. Volume status appears to be stable intermittent mild cough. Still on antibiotics. Urinalysis done yesterday. Other than the toe pain patient really has no describe a bowl concerns Exam Vital Signs (past 8 hours): - 05/30/19 01:00 05/30/19 05:55 05/30/19 06:00 Temperature 97.8 F 97.6 F Pulse Rate 66 72 72 Respiratory Rate 16 18 Blood Pressure 125/69 125/73 125/73 Pulse Oximetry 92 94 Fraction of Inspired Oxygen 0.50 Oxygen Delivery Method Room Air Oxygen Flow Rate 1 Narrative Exam Narrative: Gen.: Alert disoriented to place time knows person and recognizes me today. Has a hard time with history but this is always case HEENT: Pupils equal round and reactive or mucosa is moist neck is supple no appreciable facial muscle weakness Cardio: S1-S2 systolic murmur no significant irregularity of the heart rate Respiratory: Decreased breath sounds at right lung base some scant expiratory wheezes Abdomen: [Soft nontender no rebound or guarding no liver spleen enlargement no appreciable hernias] Extremities: Painful to palpation of her right great toe. No significant edema. Warm dry perfused Objective Labs Result Diagrams: 05/28/19 08:48 05/29/19 11:57 Labs: Laboratory Results - last 24 hr 05/29/19 05/29/19 11:57 12:25 Sodium 137 Potassium 4.6 Chloride 99 Carbon Dioxide 31 BUN 20 H Creatinine 1.00 Estimated GFR 53.3 L BUN/Creatinine Ratio 20.0 Glucose 194 H Calcium 9.9 Magnesium 2.4 H Urine Color Yellow Urine Appearance Clear Urine pH 8.0 Ur Specific [place] <=1.005 Urine Protein Negative Urine Glucose (UA) Negative Urine Ketones Negative Urine Occult Blood 1+ H Urine Nitrate Negative Urine Bilirubin Negative Urine Urobilinogen 0.2 Ur Leukocyte Esterase 1+ H Urine RBC 5-10/hpf H Urine WBC 5-10/hpf H Ur Squamous Epith Cells 0-1 /hpf Ur Renal Epithelial Cell 0-1/hpf Amorphous Sediment 1+ Urine Bacteria Few (2-10) H Urine Mucus 1+ H Ur Culture Indicated? Specimen cultured Assessment & Plan Assessment & Plan narrative: Pneumonia with acute respiratory failure. Patient's respiratory status is improved. She is on nasal cannula oxygen at times has been on room air. Respiratory drive and status is normal respiratory rate looks good. Recent x-ray shows no significant change in improvement which would make sense to me have. She has stopped her course of Zithromax and still on ceftriaxone her white blood cell count stable she is afebrile and blood pressure is well controlled. We will continue complete 10 day course of ceftriaxone and then she will stop this antibiotic. Congestive heart failure systolic with acute exacerbation with an ejection fraction of 25-30%. She is on a beta-mary angiotensin receptor mary spironolactone. Her blood pressure is being managed as needed with hydralazine. She is currently on Lasix transferred from IV to oral 40 mg twice a day. Seems to be euvolemic and good urine output with the good volume volume loss. Will continue with Lasix probably have to be cut down to once a day. Will monitor closely her potassium currently her potassium level is okay but due to her angiotensin receptor mary spironolactone will have to monitor closely her potassium and kidney function. Currently appears to be euvolemic. We will go ahead and make changes from her twice a day Lasix to once a day here in a few days. Atrial fibrillation with rapid ventricular response paroxysmal. No recent episodes. She has had intermittent doses of detail is am. She is on a beta-mary. One point she became hemodynamically unstable with this. May consider amiodarone but that would be used as a last resort. Currently she is out of AFib. Ongoing discussion in regards to concern about anticoagulation long-term which I think would be something that would be beneficial for this patient. Generalized weakness with concerns about right-sided specific weakness. Due to patient's atrial fibrillation lack of anticoagulation patient high risk for cerebrovascular accident. CT scan showed no acute findings. She has some underlying confusion. Weakness is chronic and stable. Will continue with current beta-mary ongoing discussion about long-term anticoagulation in this patient which needs to be taken into consideration because of her age weakness falls in [employer] and concerns about bleeding. Cannot discolored underlying TIA versus CVA. Delirium with acute encephalopathy. Due to underlying history of multiple things including infection hospitalization significant heart failure and underlying mental health disorder with history of bipolar disorder. Certainly improved. But not back to baseline. Continue with Seroquel 100 mg at night. DC as needed Haldol. Decreased dose of Ativan. Patient had much better night and I think she has had transitioning back to baseline which may take a number of weeks. Diabetes currently on insulin continue to manage and monitor and prevent hypoglycemic episodes. Hypothyroidism. Continue with thyroid replacement. Disposition and plan. Patient is medically stabilizing and doing well. May need another day or 2 to sort that all out. Underlying issues current delirium and encephalopathy which is clearing. Continue with Seroquel at night. Reducing doses of as needed Haldol and Ativan as I think this is not currently helpful and could be contributing to her delirium. Definitely benefit from a penitentiary stay as she is significantly weak and not able to go home and take care of herself. Quality VTE Deep Vein Thrombosis/Pulmonary Embolism Present on Admission: No
--- NOTE | 2019-05-30 08:10 | DI.RAD.S_ITS ---
PROCEDURE: XR FOOT LT MIN 3V INDICATIONS: rt 1st digit pain TECHNIQUE: 3 views of the foot were acquired. COMPARISON: None. FINDINGS: Bones: No fractures or dislocations. No suspicious bony lesions that would indicate likelihood of osteomyelitis. 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 Soft tissues: No tibiotalar joint effusion. Achilles tendon appears normal. IMPRESSION: Suspect gout as cause of the periarticular erosions at the first interphalangeal joint, no osteomyelitis or trauma found. Dictated by: Herve Judge M.D. on 05/30/2019 at 9:47 Approved by: Herve Judge M.D. on 05/30/2019 at 9:49
[2019-05-30] MEDS: ENOXAPARIN 40 MG/0.4 ML SYRINGE SUBCUT (10:55)
[2019-05-30] MEDS: guaiFENesin ER 600 MG TAB 1200 MG PO ×2 (10:55→21:15)
[2019-05-30] MEDS: carvediloL 6.25 MG TABLET 12.5 MG PO ×2 (10:56→17:00)
[2019-05-30] MEDS: FUROSEMIDE 40 MG TABLET PO ×2 (10:57→17:00)
[2019-05-30] MEDS: MAGNESIUM OXIDE 400 MG TABLET PO (10:57)
[2019-05-30] MEDS: SPIRONOLACTONE 25 MG TABLET PO (10:57)
[2019-05-30] MEDS: LOSARTAN 50 MG TABLET 100 MG PO (10:57)
--- NOTE | 2019-05-30 11:50 | PT-IP ANOTE ---
Pt refused stating it was a bad day. OT and RN present to reposition pt and [facility] waiting to see pt.
--- NOTE | 2019-05-30 11:51 | OT.IP.TRT ---
Current Diagnoses Pneumonia, unspecified organism (05/25/19) Occupational Therapy Treatment Note M2 OT-IP Current Condition Start: 05/27/19 17:37 Freq: Status: Active Protocol: Document 05/27/19 16:45 [facility] (Rec: 05/27/19 18:14 [facility] [id number]) Occupational Therapy Current Condition Current Condition Evaluation Date 05/27/19 Treatment Diagnosis Right sided weakness, CHF exacerbation, altered mental status Diagnosis Onset Date 05/25/19 Weight Bearing Status Weight Bearing Status Weight Bear as Tolerated M3 OT- IP Subjective and Pain Start: 05/27/19 17:37 Freq: Status: Active Protocol: Document 05/30/19 12:14 [facility] (Rec: 05/30/19 12:20 [facility] [id number]) OT- Subjective Occupational Therapy Visit Type Type Treatment Note Visit Start Time 11:43 Visit Stop Time 11:51 Total Visit Minutes 8 Occupational Therapy Visit Comments Patient Comments Pt stating not having a good day and would rather not do therapy at this time but wanting to have assist to repositioned in bed. M4 OT- IP ADL's Start: 05/27/19 17:37 Freq: Status: Active Protocol: Document 05/30/19 12:14 [facility] (Rec: 05/30/19 12:20 [facility] [id number]) OT ADL-Dressing General Eval Lower Body Dressing Ability Maximum Assistance Comments OT Dressing Comments Pt needing assist for hygiene and brief change in the bed. OT ADL-Toileting General Evaluation Toileting Ability Total Assistance Comments OT Toileting Comments Brief change in the bed. M6 OT- IP Functional Cognition Start: 05/27/19 17:37 Freq: Status: Active Protocol: Document 05/30/19 12:14 [facility] (Rec: 05/30/19 12:20 [facility] [id number]) Cognitive Factors Limiting Selfcare Function Cognitive Ability Level of Alertness Alert Patient Orientation Name Attention Span Ability Capable of Focused Attention, Capable of Sustained Attention Ability to Follow Commands Able to Follow One Step Commands Cognitive Comments Cognitive Assessment Comments Pt able to state her needs today and follow commands better during bed mobility and brief change. Protocol: Document 05/30/19 12:14 [facility] (Rec: 05/30/19 12:20 [facility] [id number]) OT Summary Assessment and Plan Potential Rehabilitation Potential Fair Analytic Complexity at Evaluation Moderate Summary OT Impairments Pain,Range of Motion,Strength, Balance,Coordination, Functional Cognition, Functional Mobility,Self- Feeding,Grooming,Dressing, Toileting,Bathing,Toilet Transfers,Shower Transfers Progress Towards Goals Slow Progress due to Activity Tolerance,Slow Progress due to Cognition Assessment Summary Pt not having a good day per pt and agreed just to allow therapist to help reposition and and change out her brief with nursing. Pt able to roll today with MODA x1. To recheck on pt in the PM. Goals Days to Meet Goals 8 Frequency of Treatment Frequency Of Treatment Twice a Day Treatment Plan OT Treatment Plan ADL Training,Functional Cognition Training,Functional Mobility,Neuromuscular Re- education,Vision Retraining, Patient/Family Education, Discharge Planning Discharge Recommendations OT Discharge Recommendations SNF Rehab Home Equipment Needs To be determined.
[2019-05-30] MEDS: INSULIN GLARGINE 100 UNIT/ML 3ML PEN 45 UNIT SUBCUT (13:16)
--- NOTE | 2019-05-30 13:30 | OT.IP.TRT ---
Current Diagnoses Pneumonia, unspecified organism (05/25/19) Occupational Therapy Treatment Note M2 OT-IP Current Condition Start: 05/27/19 17:37 Freq: Status: Active Protocol: Document 05/27/19 16:45 [facility] (Rec: 05/27/19 18:14 [facility] [id number]) Occupational Therapy Current Condition Current Condition Evaluation Date 05/27/19 Treatment Diagnosis Right sided weakness, CHF exacerbation, altered mental status Diagnosis Onset Date 05/25/19 Weight Bearing Status Weight Bearing Status Weight Bear as Tolerated M3 OT- IP Subjective and Pain Start: 05/27/19 17:37 Freq: Status: Active Protocol: Document 05/30/19 13:29 [facility] (Rec: 05/30/19 13:30 [facility] [id number]) OT- Subjective Occupational Therapy Visit Type Type Patient Unavailable Notes Per nursing, pt sleeping and best to wait until tomorrow to see pt for OT teatment.
--- NOTE | 2019-05-30 13:31 | PT-IP ANOTE ---
Per RN pt is fatigued and is sleeping.
[2019-05-30] MEDS: ACETAMINOPHEN 325 MG TABLET 650 MG PO ×2 (13:49→23:59)
--- NOTE | 2019-05-30 15:48 | PC.NURSE ---
Shift summary: Patient was alert to self/age/birthdate, family, month and year. Confused at times. No anxiety or agitation this shift. Lungs CTA, diminished throughout. Intermittent wet-sounding cough, denied shortness of breath. Sats on 2L 92%. HRR to auscultation, tele monitoring ongoing. Antoine in place, urine clear yellow. Medicated with Tylenol for generalized discomfort, swallowed pills fine whole with water . Q2H assist with repositioning. Patient refused PT/OT this morning, and was sleeping when they tried again (family wanted to let patient sleep). Able to make needs known and has been using call light appropriately. Call light and belongings within reach, bed alarm on.
--- NOTE | 2019-05-30 16:09 | ST.IPIE ---
Visit Care Team Role Provider Type Wilma Mallory DO Emergency Provider Physician Specialty: Emergency Medicine Address: [address] [place] [id number] Email: [email or web address] Attending Provider Physician Primary Care Provider Specialty: Family Practice Address: [address] [place] [address] Email: [email or web address] Neel Walter MD Admit Provider Physician Other Providers Specialty: Family Practice Address: [address] [place] [address], [id number] Email: [email or web address] Current Diagnoses Pneumonia, unspecified organism (05/25/19) Past Medical History (Last Reviewed 05/25/19 @ 05:07 by Neel Walter MD) Atrial fibrillation (Chronic Medical 09/20/10) Bilateral shoulder pain (Inactive Medical) Bipolar disorder (Chronic Medical) Do acupuncture Cardiomyopathy (Chronic Medical) Chicken pox (Resolved Medical) Chronic diarrhea (Chronic Medical 06/10/16) Controlled type 2 diabetes mellitus (Chronic Medical 09/20/10) Diarrhea (Acute Medical) Essential hypertension (Chronic Medical 09/20/10) History of Graves' disease (Chronic Medical) History of placenta previa (Resolved Medical) Irritable bowel syndrome (Acute Medical) Minor head injury without loss of consciousness (Resolved Medical) Neuropathy of both feet (Chronic Medical) Renal artery stenosis (Chronic Medical 09/20/10) Retinal scar (Chronic Medical) Rheumatoid arthritis (Chronic Medical) Right leg pain (Resolved Medical) Sprain of left shoulder (Inactive Medical) Stroke (Resolved Medical) ?? Systolic congestive heart failure (Chronic Medical 09/20/10) Thyroid nodule (Chronic Medical) Removed? 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 relates patient has been ill with a respiratory illness for approximately 10 days primarily with cough and minimal production, no head congestion. Pt and reported that some days patient's respiratory status worsened. She was seen in the walk-in clinic on Thursday felt to have acute pneumonia placed on azithromycin given at inhalation therapy treated with seemed to help. Today however patient's respiratory status worsened she was having more more difficult breathing . Events clearly this morning was felt that she is needing further evaluation was brought to the emergency room. Subjective Observations Pt was in her bed with family present. She was agreeable to have swallowing assessment. Pt requested toast. Evaluation Liquids Trialed Thin Solids Trialed Regular Administration Type Self-Feeding Oral Impairment WFL Oral Phase Comments Pt wears upper and lower dentures that are reported to fit well enough. OM exam noted mild-minimal left side facial droop. Pt's daughter reported that pt has had the left weakness since her CVA 10 years ago. Pt reported she did not have any f/u therapies following her CVA. OM structures and function were observed to be WFL. No oral residue following trial of toast. Pharyngeal Impairment WFL Pharyngeal Phase Comments Pharyngeal phase of swallowing WFL. Hyolaryngeal elevation WFL. No cough/choke observed. No wet voicing observed. Pt safely tolerated PO intake. 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
[2019-05-30] MEDS: INSULIN ASPART 100 UNIT/ML INSULN PEN SUBCUT (17:01)
[2019-05-30] MEDS: QUETIAPINE 25 MG TABLET 100 MG PO (21:15)
[2019-05-31] VITALS (9 sets, daily range): BP systolic 106–150; BP diastolic 56–85; PULSE 63–75; RESP 16–20; TEMP 36.7–37.2; O2SAT 91–96
--- NOTE | 2019-05-31 00:35 | PC.NURSE ---
Addendum entered by Hillary Santos R.N. 05/31/19 06:48: Slept well most of night although states she has been awake since 0200. Denies pain this morning. Remains very pleasant and calm. Questioning what she has to do to get out of hospital so discussed importance of working with PT to help improve her strength. Had O2 off this morning and sat was 95% so left on RA. Agreeable to having SCD's put back on. Original Note: Patient is oriented only to self and place tonight but getting irritated with questions as states her head hurts. Breath sounds diminished but CTA; oxygen at 2L/min per NC with sat of 94%. HRR; telemetry reading was SR w/BBB and occasional PVC's. Denies nausea. BT hyperactive and complaining of abdominal discomfort; has been incontinent of stool. Indwelling catheter is patent; urine is light yellow. Able to move self in bed. Abrasions/bruises on left extremities. Still complains of pain in left foot whenever moved/touched. Requested Tylenol for headache, abd/foot pain but unable to provide number for severity. Given Tylenol and ice pack provided for comfort. Refusing SCD's at this time. Daughter present in room. Fall risk score is high and bed alarm is activated.
[2019-05-31] MEDS: CEFTRIAXONE 1 GM/50 ML FROZ.PIGGY IV ×2 (04:41→17:41)
[2019-05-31] MEDS: SODIUM CHLORIDE 0.9% FLUSH 10 ML IV ×3 (04:42→21:09)
[2019-05-31] MEDS: SODIUM CHLORIDE 0.9% 250 ML 21 ML IV (04:42)
[2019-05-31] MEDS: HYDRALAZINE 10 MG TABLET PO (05:33)
[2019-05-31] MEDS: LEVOTHYROXINE 125 MCG TABLET PO (05:33)
--- NOTE | 2019-05-31 06:39 | P.PN_ITS ---
Exam Vital Signs (past 8 hours): - 05/31/19 00:40 05/31/19 05:33 05/31/19 05:45 Temperature 98.5 F 98.3 F Pulse Rate 64 67 63 Respiratory Rate 20 16 Blood Pressure 106/68 124/60 124/60 Pulse Oximetry 94 95 Fraction of Inspired Oxygen 0.50 Oxygen Delivery Method Nasal Cannula Oxygen Flow Rate 0 Narrative Exam Narrative: Gen.: Alert oriented to person and place not time HEENT: [NCAT PERRLA tympanic membranes are clear nares are patent oral mucosa is moist no tonsillar hypertrophy neck is supple without lymphadenopathy no thyroid enlargement.] Cardio: [S1-S2 regular rate and rhythm no murmurs appreciated.] Respiratory: [Lungs are clear to auscultation no wheezes or crackles normal respiratory effort.] Abdomen: [Soft nontender no rebound or guarding no liver spleen enlargement no appreciable hernias] Extremities: [Full range of motion no appreciable weakness no cyanosis or edema.] Neurologic: [Grossly intact.] Objective Labs Result Diagrams: 05/28/19 08:48 05/29/19 11:57 Assessment & Plan Assessment & Plan narrative: Pneumonia with acute respiratory failure. Patient's respiratory status is improved. Off oxygen now. Continue with ceftriaxone transition to oral antibiotics tomorrow. We would continue with Omnicef for another 3-5 days orally. Congestive heart failure systolic with acute exacerbation with an ejection fraction of 25-30%. She is on a beta-mary angiotensin receptor mary spironolactone. Blood pressure is doing well. Stop her hydralazine. Decrease the amount of diuresis she is getting. Reduce Lasix to 40 mg orally a day and remove Antoine catheter. Atrial fibrillation with rapid ventricular response paroxysmal. No recent episodes. Possibly due to strain stress of heart failure underlying pneumonia and illness. She is not a strong candidate for anticoagulation due to age delirium we will continue to monitor this an outpatient.. Her telemetry monitoring. Generalized weakness with concerns about right-sided specific weakness. CT of head normal. Still very weak. Unable to get out of bed. Will continue to work with physical therapy and strengthening. Encouraged chair use. And DC Antoine catheter. Work with physical therapy Delirium with acute encephalopathy. Due to underlying history of multiple things including infection hospitalization significant heart failure and underlying mental health disorder with history of bipolar disorder. Certainly improved. Continued clinical improvement. DC lorazepam continue with Seroquel at night. Daughter and family states yesterday was much better no nursing night concerns as well. Diabetes currently on insulin continue to manage and monitor and prevent hypoglycemic episodes. Hypothyroidism. Continue with thyroid replacement. Disposition and plan. BRAEDEN Antoine. Decrease Lasix. Out of bed to chair ambulation. [facility] when able to participate in physical therapy. Quality VTE Deep Vein Thrombosis/Pulmonary Embolism Present on Admission: No
[2019-05-31 06:44] LABS: BUN Creatinine Ratio 23.6 (6-22); Blood Urea Nitrogen 26 mg/dL (7-17); Calcium 9.8 mg/dL (8.4-10.2); Carbon Dioxide 30 mmol/L (22-32); Chloride 100 mmol/L (98-107); Estimated Glomerular Filt Rate 47.8 mL/min (>60); Glucose 109 mg/dL (80-110); HEMOLYSIS < 15 (0-50); Potassium 3.9 mmol/L (3.4-5.1); Sodium 137 mmol/L (137-145)
[2019-05-31] MEDS: carvediloL 6.25 MG TABLET 12.5 MG PO ×2 (09:53→18:13)
[2019-05-31] MEDS: MAGNESIUM OXIDE 400 MG TABLET PO (09:57)
[2019-05-31] MEDS: ENOXAPARIN 40 MG/0.4 ML SYRINGE SUBCUT (09:57)
[2019-05-31] MEDS: guaiFENesin ER 600 MG TAB 1200 MG PO ×2 (09:57→21:04)
[2019-05-31] MEDS: SPIRONOLACTONE 25 MG TABLET PO (09:57)
[2019-05-31] MEDS: FUROSEMIDE 40 MG TABLET PO (09:57)
[2019-05-31] MEDS: ACETAMINOPHEN 325 MG TABLET 650 MG PO (09:58)
[2019-05-31] MEDS: INSULIN GLARGINE 100 UNIT/ML 3ML PEN 45 UNIT SUBCUT (10:00)
--- NOTE | 2019-05-31 10:02 | PT.IPTN ---
Current Diagnoses Pneumonia, unspecified organism (05/25/19) Physical Therapy Treatment Note M2 PT-IP Current Condition Start: 05/27/19 15:54 Freq: NEEDED Status: Active Protocol: Document 05/27/19 11:15 LRN (Rec: 05/27/19 17:07 LRN [id number]) Physical Therapy Current Condition Current Condition Evaluation Date 05/27/19 Treatment Diagnosis difficulty breathing Onset Date 12 days ago Weight Bearing Status Allowed Weight Bearing Amount (enter % Ambulate as tolerated or #) (%) M3 PT-IP Subjective Start: 05/27/19 15:54 Freq: NEEDED Status: Active Protocol: Document 05/31/19 10:02 CLB (Rec: 05/31/19 15:02 CLB [id number]) Subjective Physical Therapy Visit Type Type Treatment Note Visit Start Time 10:02 Visit Stop Time 11:10 Total Visit Minutes 42 Notes Pt seen for split treatment [id number] Co-treat with OT Number of CHIEF RESERVOIR ENGINEERING Visits 3 Physical Therapy Visit Comments Patient Comments Pt agreeable to transfer to shower and then back to bed. M4 PT-IP Mobility and Gait Start: 05/27/19 15:54 Freq: NEEDED Status: Active Protocol: Document 05/31/19 10:02 CLB (Rec: 05/31/19 15:02 CLB [id number]) PT-Bed Mobility Assessment Supine to Sit Supine to Sit Maximum Assistance,1 Person Assistance,Head of Bed Elevated Sit to Supine Sit to Supine Maximum Assistance,2 Person Assistance Scooting Scooting to Edge of Bed Maximum Assistance,Dependent Scooting Up and Down in Bed Dependent PT-Transfer Assessment Sit to and From Stand Sit to and from Stand Maximum Assistance,2 Person Assistance,Use of Upper Extremities Equipment Transfer Assistive Device None,Gait Belt,Front Wheeled Walker Orthotic/Prosthetic Devices or Brace: No Transfers Transfer Destination Bed,Wheelchair,Bedside Commode Transfer Technique Squat Pivot Transfer Ability Level of Assist Maximum Assistance,2 Person Assistance,Use of Upper Extremities Comments Mobility Comments Pt required Max A x1 supine- sit and to EOB, pt then required Max A x2 to transferring to left with arm off WC. Pt was then transferred to [facility] Max A x2 to [facility] in shower. When shower was comeplete therapist returned to room to assist OT to transfer pt back to WC with squat pivot Max A x2. Pt rested and brushed her hair then agreed to stand with FWW to attempt a stand pivot from WC to bed. Pt required Max A x2 for stand step pivot and had difficulty advanceing RLE. Pt was able to bridge in bed to move toward center of bed. Gait Assessment Comments Gait Comments unable M5 PT-IP Objective Assessments Start: 05/27/19 15:54 Freq: NEEDED Status: Active Protocol: Document 05/27/19 11:15 LRN (Rec: 05/27/19 17:07 LRN [id number]) Orientation Orientation/Cognition Level of Alertness Alert Orientation Name,Month,Year,Place Language Function Ability No Deficits Noted Safety Awareness Understands Safety Issues Gross Range of Motion Upper Extremity ROM Assessment Within Functional Limits Impairments AROM Lower Extremity ROM Assessment Right Impaired Impairments Generally RLE strength was 2/5 . Noted foot drop on R. Strength Upper Extremity Strength Assessment Right Impaired Shoulder Generally 4/5 Elbow Biceps 3/5, Triceps 4/5 Hand Slightly less on Right. Lower Extremity Strength Assessment Right Impaired Hip 2-/5 Knee 2-/5 Ankle 2-/5 Comments Strength Comments Weakness noted in RLE, dominant side. Sensation Assessment Sensation Gross Sensation Right UE Impaired,Left LE Impaired Sensation Description Hyperesthesia,Pain Comments Sensation Comments Pt extremely sensative to light touch and pressure. Muscle Tone Muscle Tone WNL No Comments Muscle Tone Comments Weakness of RLE. Other Assessments Other Other Assessments Nursing was monitoring cardiac care. M6 PT-IP Treatment Start: 05/27/19 15:54 Freq: NEEDED Status: Active Protocol: Document 05/28/19 16:15 AB (Rec: 05/28/19 17:25 AB [id number]) Physical Therapy Treatment Education Education Provided Safety M7 PT-IP Assessment and Plan Start: 05/27/19 15:54 Freq: NEEDED Status: Active Protocol: Document 05/31/19 10:02 CLB (Rec: 05/31/19 15:02 CLB [id number]) PT Summary Assessment and Plan Summary Progress Towards Goals Slow Progress due to Medical Issues,Slow Progress due to Activity Tolerance Assessment Summary Pt continues to require Max A x2 for all bed mobilty and transfers. Pt is improving with sit-stand but has difficulty with advancing RLE due to weakness. Pt will require SNF rehab to improve strength and functional mobility. Goals Bed Mobility Goal Moderate Assistance Transfer Goal Moderate Assistance Gait Goal Moderate Assistance,Front Wheel Walker Gait Distance 25' Days to Meet Goals 2 Frequency of Treatment Frequency Of Treatment Once a Day Treatment Plan Physical Therapy Treatment Plan Bed Mobility Training,Transfer Training,Gait Training, Therapeutic Exercise,Balance Retraining,Neuromuscular Re-ed Other Recommendations and Next Treatment transfers, sitting/standing Focus balance/tolerance; activities to increase R side awareness Recommendations To Nursing Amount of Assist Needed 2 Person Assist,Mechanical Lift Discharge Recommendations PT Discharge Recommendations SNF Rehab
--- NOTE | 2019-05-31 10:05 | OT.IP.TRT ---
Current Diagnoses Pneumonia, unspecified organism (05/25/19) Occupational Therapy Treatment Note M2 OT-IP Current Condition Start: 05/27/19 17:37 Freq: Status: Active Protocol: Document 05/27/19 16:45 [facility] (Rec: 05/27/19 18:14 [facility] [id number]) Occupational Therapy Current Condition Current Condition Evaluation Date 05/27/19 Treatment Diagnosis Right sided weakness, CHF exacerbation, altered mental status Diagnosis Onset Date 05/25/19 Weight Bearing Status Weight Bearing Status Weight Bear as Tolerated M3 OT- IP Subjective and Pain Start: 05/27/19 17:37 Freq: Status: Active Protocol: Document 05/31/19 11:27 [facility] (Rec: 05/31/19 11:57 [facility] [id number]) OT- Subjective Occupational Therapy Visit Type Type Treatment Note Visit Start Time 10:05 Visit Stop Time 11:13 Total Visit Minutes 68 Occupational Therapy Visit Comments Patient Comments Pt agreeable to take a shower, ADJUNCT ENGLISH INSTRUCTOR and nursing aid also present due to pt needing extensive assist for transfer and ADL's. Patient/Caregiver Goals Pt realizing that she has to get stronger and participate in therapy. OT Pain Assessment Pain When Pain Assessed At Rest Pain Present Pain Present Denied Pain M4 OT- IP ADL's Start: 05/27/19 17:37 Freq: Status: Active Protocol: Document 05/31/19 11:27 [facility] (Rec: 05/31/19 11:57 [facility] [id number]) OT [id number] Comments OT Self-Feeding Comments Not at meal time. OT ADL-Grooming General Evaluation Grooming Ability Standby Assistance Areas Needing Assistance Retrieving/Set-up of Grooming Items Comments OT Grooming Comments Pt able to wash her face , hands, and comb her hair from seated position. OT ADL-Dressing General Eval Lower Body Dressing Ability Maximum Assistance Comments OT Dressing Comments Pt able to lift her legs up and needing assist to joshua/ doff socks and brief. Pt needing two person assist to stand to FWW and nursing aid able to help pull up the brief. OT ADL-Toileting General Evaluation Toileting Ability Total Assistance OT ADL-Bathing Bathing Type Bathing Type Shower General Evaluation Bathing Ability Maximal Assistance Areas Needing Assistance Wash/Dry Back,Wash/Dry Perineal Area,Wash/Dry Lower Extremities Devices Bathing Equipment Hand Held Shower Sprayer, Shower Chair with Arms,Grab Bars Comments OT Bathing Comments Pt able to assist to wash her face, body, and top of legs. M6 OT- IP Functional Cognition Start: 05/27/19 17:37 Freq: Status: Active Protocol: Document 05/31/19 11:27 [facility] (Rec: 05/31/19 11:57 [facility] [id number]) Cognitive Factors Limiting Selfcare Function Cognitive Ability Level of Alertness Alert,Confusional State Patient Orientation Name Attention Span Ability Capable of Focused Attention, Unable to Sustain Attention Ability to Follow Commands Able to Follow One Step Commands with Increased Time, Able to Follow One Step Commands with Repetition Memory Description Short Term Impaired Safety Awareness Underestimates Need for Assistance Problem Solving Ability Unable to Identify Errors, Needs Assist to Identify Solutions Executive Function Ability Unable to Filter Distractions, Unable to Make Plans,Unable to Remember Details Abstract Thinking Ability Unable to Use Concepts,Unable to Make Generalizations,Unable to Understand Generalizations ,Unable to Draw Logical Conclusions Cognitive Comments Cognitive Assessment Comments Pt able to state needs. Pt very structured and wanting to do the same things as she does at home and not able to generalize that she is at the hospital . For example pt use of Kotek in brief at home and insistent that uses a Kotek. Had to explain to the pt that we do not have the her items that she has a home and other option is use of a brief. After explanation and showing pt the brief pt agreed , okay that will do. Pt insisting on using a shampoo cap to wash her hair as her friend had given it to her. Pt not wanting to wash her hair while in the shower and perseverating on use of shower cap as she has do so before on Thursday. Pt benefits from step by step concrete explanations before starting a task with pt. Had to explain to pt since her gown was soiled would have to wear the hospital gown, initially pt resisted but after further explanation that it would not be good to wear a soiled gown, pt then agreed. M7 OT- IP Mobility and Balance Start: 05/27/19 17:37 Freq: Status: Active Protocol: Document 05/31/19 11:27 [facility] (Rec: 05/31/19 11:57 [facility] [id number]) OT- Bed Mobility Assessment Rolling Level of Assistance Maximum Assistance,1 Person Assistance,Head of Bed Elevated Sit to Supine Sit to Supine Assist Maximum Assistance,2 Person Assistance Scooting Scooting to Edge of Bed Moderate Assistance,2 Person Assistance OT-Transfer Assessment Sit to and From Stand Sit to and from Stand Maximum Assistance,2 Person Assistance Transfers Transfer Ability Maximum Assistance,2 Person Assistance Technique Transfer Destination Bed,Bedside Commode,Chair Transfer Technique Squat Pivot Devices Transfer Assistive Devices Gait Belt,Front Wheeled Walker Comments Mobility Comments Pt still having difficulty to coordinate movement of her right leg and needing assist to get to the edge of the bed and MAX A to sit upright. MAX A X 2 for squat pivot to wc and then drop arm BSC and then back to WC. Pt able to stand with MAX A X 2 to FWW and able to transfer back to the bed however needing assist for weight shifting, balance, and then to want to kick out her LLE during the transfer. Noted pt able to bear more weight on RLE versus on OT eval. pt needing step by step instructions for the transfers. OT- Gait Assessment Comments Gait Ability Comments Just transfers at this time. OT- Balance Assessment Sitting Balance and Reactions Static Sitting Balance Ability Good Dynamic Sitting Balance Ability Fair Standing Balance and Reactions Static Standing Balance Ability Poor Dynamic Standing Balance Ability Poor M8 OT- IP Objective Assessments Start: 05/27/19 17:37 Freq: Status: Active Protocol: Document 05/28/19 12:49 [facility] (Rec: 05/28/19 13:15 [facility] [id number]) OT Gross Range of Motion Upper Extremity Range of Motion Assessment Right Impaired ROM Impairments RUE 0-50 shoulder flexion. M9 OT- IP Assessment and Plan Start: 05/27/19 17:37 Freq: Status: Active Protocol: Document 05/31/19 11:27 [facility] (Rec: 05/31/19 11:57 [facility] [id number]) OT Summary Assessment and Plan Potential Rehabilitation Potential Good Analytic Complexity at Evaluation Moderate Summary OT Impairments Range of Motion,Strength, Balance,Functional Cognition, Functional Mobility,Grooming, Dressing,Toileting,Bathing, Toilet Transfers,Shower Transfers Progress Towards Goals Slow Progress due to Pain,Slow Progress due to Cognition Assessment Summary Pt able to tolerate multiple transfers today in addition to showering. Pt at times easily gets confused and needs step by step directions and explanations of what to expect . Pt would benefit from a structured environment and set schedule or at least to touch base with pt prior to seeing the pt. Pt still needing extensive assist for mobility needs, however able to tolerate stand pivot transfer today with FWW and MAX A X2. Pt has decreased safety awareness as insistent that she can just get up and walk but also does realize that she has been in bed for awhile and not weaker , especially with her RLE. At times Pt has fair incite to her disability and other times seems to forget. pt will benefit form skilled rehab prior to going home. Goals Self-Feeding Goal Standby Assistance Grooming Goal Standby Assistance Dressing Goal Minimal Assistance Toileting Goal Standby Assistance Bathing Goal Moderate Assistance Toilet Transfer Goal Minimal Assistance Shower Transfer Goal Moderate Assistance Patient/Caregiver Education Goal Caregiver Independent Assisting Patient Days to Meet Goals 15 Frequency of Treatment Frequency Of Treatment Once a Day Treatment Plan Other Treatment Recommendations and Next MODA X 2 transfer with FWW to Treatment Focus BSC. Discharge Recommendations OT Discharge Recommendations SNF Rehab Home Equipment Needs Defer to SNF
--- NOTE | 2019-05-31 11:40 | CM.DPC ---
Met with family (Rina - daughter and Dione- /father are present). I wxplained that insurance gave the authorization to [facility] and Lanie is talking to that SNF about where they are about accepting. Family's first choice remains [facility]
--- NOTE | 2019-05-31 12:10 | CM.DPC ---
Addendum entered by Lanie Butterfield LPN 05/31/19 16:23: Followed up with Kerry/[facility] and Yue/[facility] after Jordan had assessed pt and ok'd her for admission. The referral from [facility] [place] has now been released. October has the pending new auth number from [facility] and expects all to be finalized tomorrow morning. Staff Mine Warfare Officer Crista has left a message for Dr. Castro re this updated d/c plan and she agrees to also inform the ryan RN as Dr. Castro plans to see pt this evening. Have left a vm for Rina now with update. P: expect d/c to [facility] tomorrow once the final auth is in place. Please follow up with October tomorrow morning. Addendum entered by Lanie Butterfield LPN 05/31/19 12:44: Have left another vm with [facility] [place] admissions with request to discuss this case. Addendum entered by Lanie Butterfield LPN 05/31/19 12:21: Present for conversation are pt, her Ryan, and daughters: Rina and Niya (and Niya's . They are updated on the expected d/c for either later today or, more likely, tomorrow. They note surprise but at this point are very agreeable to accepting this and discussing specifics of the d/c plan. They express their collective relief that pt is calm and much clearer today. Rina says that her mother is agreeable to going to snf for rehab/recovery but she thinks she is going across the street (to [facility]). Discussed the auth in place at [facility] and the process that would be needed IF [facility] accepted pt. Per verbal report for the DCPlanners working this case yesterday the team from [facility] including linux security administrator Jordan did come to hospital to see pt yesterday but the family told Jordan that she was not yet stable enough to be seen and that d/c was a few days away. Rina and Niya both say they understand this, would like to see if [facility] can accept pt but understand that if all is not in place for this by tomorrow we will just have to accept [facility]. The primary concern by family is NOT that [facility] is not good facility but we all think it would be best if she is close to us so that in case of any confusion or outbursts from her one of us can be right there to calm her or orient her.. Have now spoken with Yue/[facility]. She has talked with Jordan, he will be here by 1300 to see pt and, if he ok's acceptance, Yue will begin work on the auth. She says she would expect to have this by tomorrow. Will keep pt and family updated. P: [facility] or [facility] tomorrow: pending outcome of events today and/c order. PASRR: needed. Original Note: DCP: continued: case received, EMR reviewed for the last few days and spoke at length with meat inspector Crista who noted that she assisted DCPlanfelicia Adamaris on this case yesterday. Discussed also in Team Rounds with the UR RN noting that pt was stable for d/c from the hospital setting in terms of the UR criteria. Noted also that Dr. Castro was in very early this morning (before 0700) and said that pt would be stable for d/c to snf setting once she was able to work with PT. PT Director in Rounds noted that, thus far, pt was requiring a matilde lift although care team also stated that pt's overall cognition seemed to be stabilizing and PT was to work again with pt today. Have now hear verbally from the Care team that pt was able to mobilize a bit with PT today (those notes are still pending.) Received a vm from [facility] on acute care floor that a message had come in from [facility] stating that pt had been authorized for an admission to [facility]. Have called [facility] on admissions line and left a vm requesting a call back to discuss. Met then with pt and her family, all gathered at bedside. Reintroduced self and role.
[2019-05-31] MEDS: INSULIN ASPART 100 UNIT/ML INSULN PEN SUBCUT ×2 (13:26→17:28)
--- NOTE | 2019-05-31 15:35 | PC.NURSE ---
Addendum entered by Gail Le R.N. 05/31/19 16:33: Elina/UOP: Elina was dc'd at 0945. Patient voided 100 ml measured urine, plus a large void that was unmeasured because it was mixed with stool. Denied any post-void urgency. Original Note: Patient requested to speak with Dr Castro regarding some medical questions. This verse writer spoke with Dr Castro's nurse and let her know the same. She was going to get message to Dr Castro and hopefully he can come up to see her after clinic hours. Relayed same info to the patient.
[2019-05-31] MEDS: QUETIAPINE 25 MG TABLET 100 MG PO (21:03)
[2019-06-01 00:50] VITALS: BP 134/95; PULSE 73; RESP 16; TEMP 36.9; O2SAT 94
[2019-06-01 03:36] VITALS: BP 159/78; PULSE 72; RESP 16; TEMP 37.3; O2SAT 92
[2019-06-01] MEDS: SODIUM CHLORIDE 0.9% FLUSH 10 ML IV (03:41)
[2019-06-01] MEDS: CEFTRIAXONE 1 GM/50 ML FROZ.PIGGY IV (03:41)
[2019-06-01] MEDS: LEVOTHYROXINE 125 MCG TABLET PO (06:10)
[2019-06-01 06:22] LABS: BUN Creatinine Ratio 26.7 (6-22); Blood Urea Nitrogen 24 mg/dL (7-17); Calcium 9.6 mg/dL (8.4-10.2); Carbon Dioxide 26 mmol/L (22-32); Chloride 102 mmol/L (98-107); Estimated Glomerular Filt Rate > 60.0 mL/min (>60); Glucose 137 mg/dL (80-110); HEMOLYSIS 16 (0-50); Potassium 3.9 mmol/L (3.4-5.1); Sodium 136 mmol/L (137-145)
--- NOTE | 2019-06-01 06:46 | PM.DS.1 ---
History of Present Illness History of Present Illness Chief complaint: difficulty breathing Discharge Providers Provider Date of admission: 05/25/19 04:02 Discharge Date: 05/31/19 Primary care physician: Live Castro MD Consults: 05/25/19 01:59 Consult to Respiratory Therapy Evaluate & Treat Comment: Physician Instructions: Evaluate and treat 05/27/19 08:16 Consult to Occupational Therapy Evaluate & Treat Comment: Physician Instructions: Evaluate and treat Consult to Physical Therapy Evaluate & Treat Comment: Physician Instructions: Evaluate and Treat 05/27/19 21:04 Consult to Speech Therapy Evaluate & Treat Comment: Physician Instructions: Evaluate and treat 05/29/19 10:52 Consult to Respiratory Therapy Evaluate & Treat Comment: Physician Instructions: Evaluate and treat Discharge provider: Live Castro MD Summary Hospital Course Hospital Course: Pneumonia with acute respiratory failure. Patient admitted to the hospital in respiratory failure requiring BiPAP oxygen. Treated with appropriate antibiotics. Patient on initial presentation was quite lot on respiratory distress is improved with treatment of her underlying pneumonia. Of the time of discharge she will be on oral Omnicef. Congestive heart failure systolic with acute exacerbation with an ejection fraction of 25-30%. Patient had fluid overload also at the time of admission due to her underlying pneumonia. She had a cardiac evaluation because of elevated cardiac enzymes. Thought there was mild demand ischemia and pulmonary congestion due to systolic heart failure. This was treated with appropriate medications beta-blockers angiotensin receptor blockers diuretics patient had improvement of her pulmonary congestion heart failure and respiratory status. Atrial fibrillation with rapid ventricular response paroxysmal. To the above conditions. Patient had episode of atrial fibrillation. History of atrial fibrillation previously. It's not chronic and has not been sustained during hospital stay. There is discussion about anticoagulation since being better patient has had normal sinus rhythm. There's concerned about her age fall risk and Scientologist about placing her on anticoagulation. This will need to be sorted out further as an outpatient. Generalized weakness with concerns about right-sided specific weakness. Initial concerns with right-sided weakness. CT scan of the brain was unfounded. Patient continued to improve with physical therapy. Delirium with acute encephalopathy. Multifactorial due to infection fluid overload basic cognitive delay has a normal status for her. Improved over hospital stay as acute illness resolved. At the time of discharge. Almost back to baseline. Diabetes currently on insulin on home insulin therapy. Will be a sliding scale insulin at the group home. Hypothyroidism. Continue with thyroid replacement. TSH was low on admission she was on replacement question whether not she was even taking medication. Exam Vital Signs (past 8 hours): - 06/01/19 00:50 06/01/19 03:36 Temperature 98.4 F 99.1 F Pulse Rate 73 72 Respiratory Rate 16 16 Blood Pressure 134/95 H 159/78 H Pulse Oximetry 94 92 Fraction of Inspired Oxygen 0.50 Oxygen Delivery Method Room Air Oxygen Flow Rate 0 Narrative Exam Narrative: Gen.: Alert improved historian. Still disoriented to time HEENT: Pupils equal round and reactive or mucosa is dry Cardio: S1-S2 systolic murmur Respiratory: Normal respiratory effort lungs are clear Abdomen: Soft nontender no rebound or guarding no liver spleen enlargement no appreciable hernias Extremities: Trace lower extremity edema Neurologic: Generalized weakness Objective Labs Result Diagrams: 05/28/19 08:48 06/01/19 05:50 Labs: Laboratory Results - last 24 hr 05/31/19 06/01/19 06:05 05:50 Sodium 137 136 L Potassium 3.9 3.9 Chloride 100 102 Carbon Dioxide 30 26 BUN 26 H 24 H Creatinine 1.10 H 0.90 Estimated GFR 47.8 L > 60.0 BUN/Creatinine Ratio 23.6 H 26.7 H Glucose 109 137 H Calcium 9.8 9.6 Discharge Plan Discharge Plan Patient Disposition: SNF Transfer to: [facility] Discharge orders & Medications Prescriptions: New losartan 50 mg Tablet 100 mg PO DAILY 30 Days RF: 0 quetiapine 25 mg Tablet 100 mg PO BEDTIME Qty: 30 RF: 0 acetaminophen 325 mg Tablet 650 mg PO Q6HR PRN (Reason: Fever/Mild Pain (1-3)) Qty: 30 RF: 0 spironolactone 25 mg Tablet 25 mg PO DAILY 30 Days RF: 0 Novolog Flexpen U-100 Insulin 100 unit/mL (3 mL) Insulin Pen 0 unit subcut ACHS 30 Days RF: 0 cefdinir 300 mg capsule 300 mg PO BID Qty: 10 RF: 0 Continued albuterol sulfate 90 mcg/actuation HFA aerosol inhaler 2 puff INHALATION Q4-6H PRN (Reason: bronchospasm) Qty: 8.5 RF: 0 carvedilol [Coreg] 6.25 mg tablet 6.25 mg PO BID Qty: 180 RF: 3 Lantus U-100 Insulin 100 unit/mL solution 40 unit SUBCUT DAILY Qty: 10 RF: 11 levothyroxine 100 mcg tablet See Rx Instructions .ROUTE .COMPLEX Qty: 90 RF: 1 furosemide 40 mg tablet See Rx Instructions .ROUTE .COMPLEX Qty: 180 RF: 3 potassium chloride [K-Tab] 20 mEq tablet extended release 20 meq PO BID Qty: 180 RF: 3 Disabled Parking Permit 1 ea miscellaneous DIRECTED RF: 0 Discontinued benzonatate [Tessalon Perles] 100 mg capsule 100 mg PO BID PRN (Reason: cough) Qty: 20 RF: 0 azithromycin 250 mg tablet See Rx Instructions PO .COMPLEX Qty: 6 RF: 0 oxybutynin chloride 5 mg tablet extended release 24hr 5 mg PO DAILY Qty: 90 RF: 1 losartan 50 mg tablet 50 mg PO DAILY RF: 0 No Action (DME) Syringes: 1cc Insulin Syringes with Sherman 0 .Route .MEDSUPPLY Qty: 100 RF: 3 Follow up/Referrals: Live Castro MD [Primary Care Provider] - (SNF TO CALL TO SCHEDULE A FOLLOW UP APPOINTMENT) Discharge Health Status Multidrug resistant organism: No MDRO Precautions: [place] Diet/Activity/Treatments Diet: Diet as Tolerated Liquid consistency: Normal/Thin Food texture: Regular [facility] Rehabilitation [facility] Reason for rehabilitation: Recovery r/t decondition Rehab type: Physical therapy and Occupational therapy Visit Report/Discharge Packet Instructions: Congestive Heart Failure (Alternative Therapy), DI for Heart Failure, DI for Shortness of Breath, How to Prevent Falls, How to Manage Shortness of Breath, Spironolactone (By mouth) Discharge Data Primary Care Provider: Live Castro Discharges patient from system. Discharge Date/Time: 06/01/19 11:50 Quality VTE Deep Vein Thrombosis/Pulmonary Embolism Present on Admission: No
[2019-06-01 08:58] VITALS: BP 136/74; PULSE 70; RESP 16; TEMP 36.7; O2SAT 94
--- NOTE | 2019-06-01 09:01 | CM.DPC ---
DCP Cont: Received discharge orders on patient. Went ahead and completed PASSR, added on PASSR that patient did note some confusion at night, but stable at this time. Patient is also on Seroquel for sleep, added this information as well, and has history of chronic bi-polar, stable as well. Yue at [facility] admissions clarified insurance authorization, and garbage pick up worker time is planned for 11:30. Faxed signed med sheet, PASSR, and discharge summary to [facility]. White board updated, nurse, Yue, is aware. P: Patient is discharging today to [facility]. Mikaela Kirk RN/Photographic Process Attendant
[2019-06-01] MEDS: ENOXAPARIN 40 MG/0.4 ML SYRINGE SUBCUT (09:40)
[2019-06-01] MEDS: carvediloL 6.25 MG TABLET 12.5 MG PO (09:40)
[2019-06-01] MEDS: guaiFENesin ER 600 MG TAB 1200 MG PO (09:40)
[2019-06-01] MEDS: FUROSEMIDE 40 MG TABLET PO (09:40)
[2019-06-01] MEDS: LOSARTAN 50 MG TABLET 100 MG PO (09:41)
[2019-06-01] MEDS: SPIRONOLACTONE 25 MG TABLET PO (09:41)
[2019-06-01] MEDS: INSULIN GLARGINE 100 UNIT/ML 3ML PEN 45 UNIT SUBCUT (09:41)
[2019-06-01] MEDS: MAGNESIUM OXIDE 400 MG TABLET PO (09:41)
--- NOTE | 2019-06-01 11:30 | PT.IPTN ---
Current Diagnoses Pneumonia, unspecified organism (05/25/19) Physical Therapy Treatment Note M2 PT-IP Current Condition Start: 05/27/19 15:54 Freq: NEEDED Status: Discharge Protocol: Document 05/27/19 11:15 LRN (Rec: 05/27/19 17:07 LRN [id number]) Physical Therapy Current Condition Current Condition Evaluation Date 05/27/19 Treatment Diagnosis difficulty breathing Onset Date 12 days ago Weight Bearing Status Allowed Weight Bearing Amount (enter % Ambulate as tolerated or #) (%) M3 PT-IP Subjective Start: 05/27/19 15:54 Freq: NEEDED Status: Discharge Protocol: Document 06/01/19 11:30 AB (Rec: 06/01/19 12:45 AB [id number]) Subjective Physical Therapy Visit Type Type Treatment Note Visit Start Time 11:30 Visit Stop Time 11:42 Total Visit Minutes 12 Number of DIVISION CHIEF Visits 0 M4 PT-IP Mobility and Gait Start: 05/27/19 15:54 Freq: NEEDED Status: Discharge Protocol: Document 06/01/19 11:30 AB (Rec: 06/01/19 12:45 AB [id number]) PT-Bed Mobility Assessment Supine to Sit Supine to Sit Maximum Assistance,1 Person Assistance Scooting Scooting to Edge of Bed Maximum Assistance PT-Transfer Assessment Sit to and From Stand Sit to and from Stand Maximum Assistance,1 Person Assistance,2 Person Assistance ,Use of Upper Extremities Equipment Transfer Assistive Device Gait Belt Orthotic/Prosthetic Devices or Brace: No Transfers Transfer Destination Wheelchair Transfer Technique Squat Pivot Transfer Ability Level of Assist Maximum Assistance,1 Person Assistance,2 Person Assistance ,Use of Upper Extremities Comments Mobility Comments Pt discharging to SNF and nurse requested assistance to transfer pt on w/c pt. pt completed supine to sit with HOB elevated max A and max cues. completed squat pivot transfer max A x 2 with PT in front of pt and NAC behing to assist to the w/c positioned pt on w/c. Left pt with NAC. M5 PT-IP Objective Assessments Start: 05/27/19 15:54 Freq: NEEDED Status: Discharge Protocol: Document 05/27/19 11:15 LRN (Rec: 05/27/19 17:07 LRN [id number]) Orientation Orientation/Cognition Level of Alertness Alert Orientation Name,Month,Year,Place Language Function Ability No Deficits Noted Safety Awareness Understands Safety Issues Gross Range of Motion Upper Extremity ROM Assessment Within Functional Limits Impairments AROM Lower Extremity ROM Assessment Right Impaired Impairments Generally RLE strength was 2/5 . Noted foot drop on R. Strength Upper Extremity Strength Assessment Right Impaired Shoulder Generally 4/5 Elbow Biceps 3/5, Triceps 4/5 Hand Slightly less on Right. Lower Extremity Strength Assessment Right Impaired Hip 2-/5 Knee 2-/5 Ankle 2-/5 Comments Strength Comments Weakness noted in RLE, dominant side. Sensation Assessment Sensation Gross Sensation Right UE Impaired,Left LE Impaired Sensation Description Hyperesthesia,Pain Comments Sensation Comments Pt extremely sensative to light touch and pressure. Muscle Tone Muscle Tone WNL No Comments Muscle Tone Comments Weakness of RLE. Other Assessments Other Other Assessments Nursing was monitoring cardiac care. M6 PT-IP Treatment Start: 05/27/19 15:54 Freq: NEEDED Status: Discharge Protocol: Document 06/01/19 11:30 AB (Rec: 06/01/19 12:45 AB [id number]) Physical Therapy Treatment Education Education Provided Safety M7 PT-IP Assessment and Plan Start: 05/27/19 15:54 Freq: NEEDED Status: Discharge Protocol: Document 06/01/19 11:30 AB (Rec: 06/01/19 12:45 AB [id number]) PT Summary Assessment and Plan Potential Rehabilitation Potential Fair Summary Impairments Pain,ROM,Strength,Balance, Coordination,Sensation,Tone, Cognition,Bed Mobility, Transfers,Gait,Activity Tolerance Progress Towards Goals Slow Progress due to Medical Issues,Slow Progress due to Activity Tolerance Assessment Summary pt continues to require 2 person assist with transfers. will be discharging to SNF today. Goals Bed Mobility Goal Moderate Assistance Transfer Goal Moderate Assistance Gait Goal Moderate Assistance,Front Wheel Walker Gait Distance 25' Days to Meet Goals 2 Frequency of Treatment Frequency Of Treatment Once a Day Treatment Plan Physical Therapy Treatment Plan Bed Mobility Training,Transfer Training,Gait Training, Therapeutic Exercise,Balance Retraining,Neuromuscular Re-ed Other Recommendations and Next Treatment transfers, sitting/standing Focus balance/tolerance; activities to increase R side awareness Recommendations To Nursing Amount of Assist Needed 2 Person Assist,Mechanical Lift Discharge Recommendations PT Discharge Recommendations SNF Rehab
--- NOTE | 2019-06-01 12:01 | PC.NURSE ---
Pt has recieved discharge orders to transfer to the [facility] to further her rehabilitation. Report has been called and provided to the admitting nurse. Pt has been assisted into her wheelchair with three person assist and was transported out of the hospital at approx. 1150.
== END 2019-06-01 11:50 | DRG 291 ==
LOC: ED 03:42 → ICU 04:02 → AC 05-27 14:45
PROVIDERS: Family Medicine; Admitting Provider Family Medicine; Emergency Provider Emergency Medicine; PCP Family Medicine; Visit Provider Family Medicine
DX: I11.0 Hypertensive heart disease with heart failure (principal); J18.9 Pneumonia, unspecified organism; J96.20 Acute and chronic respiratory failure, unspecified whether with hypoxia or hypercapnia; G93.41 Metabolic encephalopathy; E87.2 Acidosis; I50.23 Acute on chronic systolic (congestive) heart failure; I95.9 Hypotension, unspecified; I48.0 Paroxysmal atrial fibrillation; E03.9 Hypothyroidism, unspecified; E11.9 Type 2 diabetes mellitus without complications; Z79.4 Long term (current) use of insulin; Z66 Do not resuscitate
CPT/HCPCS: 36415; 36600; 51701; 70460; 70551; 71045; 73630; 80048; 80053; 81001; 82550; 82553; 82805; 82962; 83605; 83735; 83880; 84100; 84145; 84443; 84484; 85025; 85610; 85730; 87040; 87086; 87502; 87797; 92610; 93005; 93306; 94660; 94762; 96365; 96367; 96375; 97162; 97166; 97530; 97535; 99222; 99232; 99233; 99238; 99285; 99291; A9579; J0360; J1630; J1650; J1940; J2060; J2405; J3480

== ENCOUNTER → 2019-07-08 11:18 | Outpatient (CLI) | payer MEDICARE, SELFPAY ==
[2019-05-25 05:15] VITALS: BMI 31.6
[2019-05-25 05:36] VITALS: PULSE 81; RESP 22; O2SAT 98
[2019-07-08 12:39] LABS: BUN Creatinine Ratio 46.4 (6-22); Blood Urea Nitrogen 51 mg/dL (7-17); Calcium 10.2 mg/dL (8.4-10.2); Carbon Dioxide 27 mmol/L (22-32); Chloride 100 mmol/L (98-107); Estimated Glomerular Filt Rate 47.8 mL/min (>60); Glucose 246 mg/dL (80-110); HEMOLYSIS < 15 (0-50); Potassium 4.3 mmol/L (3.4-5.1); Sodium 139 mmol/L (137-145)
== END ==
PROVIDERS: PCP Family Medicine; Referring Provider Family Medicine; Visit Provider Family Medicine
DX: I50.20 Unspecified systolic (congestive) heart failure (principal); I50.9 Heart failure, unspecified
CPT/HCPCS: 36415; 80048

== ENCOUNTER → 2019-07-29 13:35 | Outpatient (CLI) | payer MEDICARE, SELFPAY ==
[2019-05-25 05:15] VITALS: BMI 31.6
[2019-05-25 05:36] VITALS: PULSE 81; RESP 22; O2SAT 98
== END ==
PROVIDERS: PCP Family Medicine; Referring Provider Family Medicine; Visit Provider Family Medicine
DX: E11.9 Type 2 diabetes mellitus without complications (principal)
CPT/HCPCS: 36415; 83036

== ENCOUNTER → 2019-11-01 12:17 | Outpatient (CLI) | payer MEDICARE, SELFPAY ==
[2019-05-25 05:15] VITALS: BMI 31.6
[2019-05-25 05:36] VITALS: PULSE 81; RESP 22; O2SAT 98
[2019-11-01 14:05] LABS: Hemoglobin A1C% w Est Avg Glu 6.9 % (4.0-6.0)
[2019-11-01 14:57] LABS: Thyroid Stimulating Hormone 0.18 uIU/mL (0.47-4.68)
== END ==
PROVIDERS: PCP Family Medicine; Referring Provider Family Medicine; Visit Provider Family Medicine
DX: E03.9 Hypothyroidism, unspecified (principal); E11.9 Type 2 diabetes mellitus without complications
CPT/HCPCS: 36415; 83036; 84443

== ENCOUNTER → 2019-11-04 16:15 | Outpatient (CLI) | payer MEDICARE, SELFPAY ==
[2019-05-25 05:15] VITALS: BMI 31.6
[2019-05-25 05:36] VITALS: PULSE 81; RESP 22; O2SAT 98
--- NOTE | 2019-11-04 16:17 | DI.RAD.S_ITS ---
PROCEDURE: XR CLAVICLE RT INDICATIONS: Fall TECHNIQUE: 2 views of the clavicle were acquired. COMPARISON: None. FINDINGS: Bones: No fractures or dislocations. No suspicious bony lesions. Severe joint degeneration with [id number] appearance, and marked sclerosis and spurring. Soft tissues: No suspicious soft tissue calcifications. IMPRESSION: Study sensitivity limited by severe arthritis. Clavicle appears intact. Elsewhere, no definite fracture. If the patient's symptoms do not improve recommend followup radiographs in 10 days to assess for healing sclerosis/occult injury. Dictated by: Kevan Tomlin M.D. on 11/04/2019 at 16:44 Approved by: Kevan Tomlin M.D. on 11/04/2019 at 16:48
--- NOTE | 2019-11-04 16:17 | DI.RAD.S_ITS ---
PROCEDURE: XR HUMERUS RT 2V INDICATIONS: Fall TECHNIQUE: 2 views of the humerus were acquired. COMPARISON: [facility], , HUMERUS 2V LEFT, 07/01/2017, 15:40. FINDINGS: Bones: No fractures or dislocations. No suspicious bony lesions. Soft tissues: No suspicious soft tissue calcifications. IMPRESSION: No fracture identified Dictated by: Kevan Tomlin M.D. on 11/04/2019 at 16:48 Approved by: Kevan Tomlin M.D. on 11/04/2019 at 16:54
--- NOTE | 2019-11-04 16:17 | DI.RAD.S_ITS ---
PROCEDURE: XR SHOULDER RT MIN 2V INDICATIONS: Fall TECHNIQUE: 3 views of the shoulder were acquired. COMPARISON: Located [facility], CR, XR CHEST 1V, 05/28/2019, 10:09. FINDINGS: Bones: No fractures or dislocations. Humeral head is superiorly subluxed consistent with chronic rotator cuff tear. No suspicious bony lesions. Visualized ribs appear intact. Soft tissues: No suspicious soft tissue calcifications. IMPRESSION: No fracture. No acute osseous lesion. If symptoms and/or clinical suspicion for pathology persists, further assessment with repeat radiographs (7-10 days) or advanced imaging (e.g. CT, MRI or bone scan) may be helpful. Dictated by: Romina Edward MD, PhD on 11/04/2019 at 16:44 Approved by: Romina Edward MD, PhD on 11/04/2019 at 16:48
== END ==
PROVIDERS: PCP Family Medicine; Referring Provider Student in an Organized Health Care Education/Training Program; Visit Provider Student in an Organized Health Care Education/Training Program
DX: R51 Headache (principal); M54.2 Cervicalgia; M25.511 Pain in right shoulder; M19.011 Primary osteoarthritis, right shoulder
CPT/HCPCS: 73000; 73030; 73060

== ENCOUNTER 2019-12-25 14:32 | Emergency (ER) | payer MEDICARE, SELFPAY ==
[2019-05-25 05:15] VITALS: BMI 31.6
[2019-05-25 05:36] VITALS: PULSE 81; RESP 22; O2SAT 98
[2019-12-25] VITALS (13 sets, daily range): BP systolic 141–185; BP diastolic 67–106; PULSE 51–61; RESP 11–18; TEMP 37; O2SAT 96–99; BMI 24.7
[2019-12-25 15:53] LABS: Add Manual Diff / Slide Review NO; Basophils Absolute Auto 100 /uL (0-100); Basophils Percent Auto 0.9 % (0-2); Eosinophils Absolute Auto 300 /uL (0-450); Eosinophils Percent Auto 3.3 % (2-4); Hematocrit 39.9 % (36-46); Hemoglobin 13.5 g/dL (12.0-16.0); Lymphocytes Absolute Auto 3100 /uL (1100-4500); Lymphocytes Percent Auto 32.4 % (25-40); Mean Corpuscular HGB Conc 33.8 % (30-36); Mean Corpuscular Hemoglobin 29.2 PG (26-34); Mean Corpuscular Volume 86.5 fL (80-100); Monocytes Absolute Auto 800 /uL (0-900); Monocytes Percent Auto 8.1 % (3-14); Neutrophils Absolute Auto 5300 /uL (1500-7000); Neutrophils Percent Auto 55.3 % (50-75); Platelet Count 224 X10^3/uL (150-400); Red Blood Cell Count 4.62 X10^6/uL (4.0-5.2); Red Cell Distribution Width 13.8 % (11.6-14.8); White Blood Cell Count 9.6 X10^3/uL (4.5-11.0)
[2019-12-25 15:59] LABS: Prothrombin Time 11.8 SECONDS (10.1-12.7)
[2019-12-25 16:01] LABS: PTT Partial Thromboplastin Tim 29 SECONDS (26.4-36.2)
[2019-12-25 16:02] LABS: Alanine Aminotransferase 17 IU/L (<35); Albumin 3.8 g/dL (3.5-5.0); Albumin Globulin Ratio 1.2 (1.0-2.8); Alkaline Phosphatase 157 U/L (38-126); Aspartate Aminotransferase 32 IU/L (14-36); Bilirubin Total 0.5 mg/dL (0.2-1.3); Blood Urea Nitrogen 47 mg/dL (7-17); Calcium 9.8 mg/dL (8.4-10.2); Carbon Dioxide 22 mmol/L (22-32); Chloride 108 mmol/L (98-107); Estimated Glomerular Filt Rate > 60.0 mL/min (>60); Globulin 3.2 g/dL (1.7-4.1); Glucose 98 mg/dL (80-110); HEMOLYSIS 23 (0-50); Lipase 81 U/L (23-300); Potassium 4.3 mmol/L (3.4-5.1); Sodium 137 mmol/L (137-145)
--- NOTE | 2019-12-25 16:15 | ED_ITS ---
HPI - Abdominal Pain General Chief Complaint: Abdominal Pain Stated Complaint: stomache aches Time Seen by Provider: 12/25/19 15:38 Source: patient Mode of arrival: Family Vehicle Limitations: no limitations History of Present Illness HPI narrative: CC: LLQ abdominal Pain HPI: The patient is an 79-year-old female who states that she developed abdominal pain 1 week ago which has gotten progressively worse. The pain is located in the left lower quadrant. She stated that her pain developed after she fell inside their motor home. She does not remember falling on any. She states that she has had a mildly distended abdomen without diarrhea but has frequent bowel movements. She states that her stools are soft and there is no blood or melena. She denies a past history of ever being told that she had diverticulosis diverticulitis Crohn's disease or ulcerative colitis irritable bowel syndrome kidney stones. She denies a history of hepatitis HIV or TB. She denies injuring her head neck or back. Later when I was asking her a question about the pain and discomfort she stated that she was having diarrhea. This went made me think that the patient may have an element of dementia. She denied having any headache fever chills or sweats. She has had no numbness tingling loss of sensation change in vision loss of vision. She denies any chest pain cough or shortness of breath more than usual. She has felt nauseous but has not vomited. She has had no melena or hematochezia and no urinary symptoms. She states that she has been having left lower quadrant abdominal pain but then she states that she does not feel pain and discomfort. The patient has some inconsistencies in her responses to the questions asked. Related Data Home Medications Medication Instructions Recorded Confirmed Disabled Parking Permit 1 ea MISCELLANEOUS DIRECTED 08/20/18 11/04/19 loperamide 2 mg tablet 2 mg PO Q1-2H PRN tab 07/04/19 11/04/19 Previous Rx's Medication Instructions Recorded Syringes: 1cc Insulin Syringes #100 each 03/14/19 with Causey furosemide 40 mg tablet See Rx Instructions .ROUTE 03/14/19 .COMPLEX #180 tablet acetaminophen 650 mg PO Q6HR PRN #30 tab 05/31/19 spironolactone 25 mg tablet 25 mg PO DAILY #30 tab 07/06/19 losartan 50 mg tablet 25 mg PO DAILY 90 Days #90 tab 07/20/19 escitalopram oxalate 10 mg tablet 10 mg PO .HS #90 tab 08/04/19 carvedilol 6.25 mg tablet 6.25 mg PO BID #180 tab 08/29/19 insulin glargine 100 unit/mL 40 unit SUBCUT DAILY #10 ml 10/10/19 subcutaneous solution levothyroxine 100 mcg tablet 100 mcg PO DAILY #90 tab 11/03/19 potassium chloride 20 mEq 20 meq PO BID #180 tab 11/07/19 tablet,extended release ciprofloxacin HCl 500 mg PO BID #20 tab 12/25/19 dicyclomine 20 mg PO BID PRN #15 tab 12/25/19 metronidazole [Flagyl] 500 mg PO BID #20 tab 12/25/19 Allergies Allergy/AdvReac Type Severity Reaction Status Date / Time egg Allergy Severe weakness Verified 12/25/19 15:05 on the right side of body after vaccine Anesthetics - Amide Type Allergy Unknown Verified 12/25/19 15:05 [ANESTHETICS - AMIDE TYPE] codeine [CODEINE] Allergy Unknown Verified 12/25/19 15:05 lidocaine [From XYLOCAINE] Allergy Unknown WHEN HAD Verified 12/25/19 15:05 TEETH WORKED ON lisinopril [LISINOPRIL] Allergy Unknown Verified 12/25/19 15:05 milk [MILK] Allergy Unknown Verified 12/25/19 15:05 morphine [MORPHINE] Allergy Unknown Verified 12/25/19 15:05 oxycodone [OXYCODONE] Allergy Unknown Verified 12/25/19 15:05 Penicillins [PENICILLINS] Allergy Unknown Verified 12/25/19 15:05 influenza virus vaccine, Allergy weakness Verified 12/25/19 15:05 specific on the right side of body after vaccine Review of Systems Review of Systems Narrative: Review of systems were negative except for those mentioned in the h istory of present illness. Patient History Medical History Atrial fibrillation (Chronic 09/20/10) Bilateral shoulder pain (Inactive) Bipolar disorder (Chronic) Cardiomyopathy (Chronic) Chicken pox (Resolved) Chronic diarrhea (Chronic 06/10/16) Controlled type 2 diabetes mellitus (Chronic 09/20/10) Diarrhea (Acute) Essential hypertension (Chronic 09/20/10) Fall (Acute) Head contusion (Acute) History of Graves' disease (Chronic) History of placenta previa (Resolved) Irritable bowel syndrome (Acute) Minor head injury without loss of consciousness (Resolved) Neck strain (Acute) Neuropathy of both feet (Chronic) Renal artery stenosis (Chronic 09/20/10) Retinal scar (Chronic) Rheumatoid arthritis (Chronic) Right leg pain (Resolved) Sprain of left shoulder (Inactive) Stroke (Resolved) Systolic congestive heart failure (Chronic 09/20/10) Thyroid nodule (Chronic) Vision disorder (Chronic) Surgical History Anesthesia (Resolved) History of hip replacement (Resolved) History of knee replacement (Resolved) History of partial surgical removal of colon (Resolved 06/10/16) Status post dilation and curettage Social History details: She is living with her in a trailer. She is a [employer] household members: spouse Smoking Status: Former smoker Smoking Status: Former smoker alcohol intake frequency: 0-2 drinks per day Substance Use Type: does not use Exam Narrative Exam Narrative: PHYSICAL EXAM: CONSTITUTIONAL: Awake, Alert, Oriented, Coherent, Cooperative in NAD. Does not appear toxic or ill.. Clinically I question some of the patient's responses as though she may have an element of dementia. HEAD: AT/NC EENT: PERRL, FROM of eyes, no discharge, no nystagmus, no conjunctival pallor NOSE:No epistaxis or nasal drainage MOUTH:Oral mucosa is moist and pink, posterior pharynx is without erythema or exudate. NECK: Supple, no obvious JVD, Trachea is midline without stridor, no palpable LN. THORAX: No deformity, retractions, chest wall tenderness. LUNGS: Clear, symmetrical breath sounds without respiratory distress. HEART: Normal heart tones, regular rhythm and rate without murmur. Heart rate is slow ABDOMEN: Soft, exquisitely tender jumping when the left lower quadrant is palpated. There is mild guarding afterwards. EXTREMITIES: No edema, deformity, tenderness or cyanosis. SKIN: No rash, bruising, petechiae or purpura. NEURO: Awake, alert, oriented, conversive, cranial nerves II-XII are symmetrical , moves all 4 extremities and is ambulatory. MENTAL HEALTH: Does not appear anxious or depressed. Initial Vital Signs Initial Vital Signs: Vital Signs Temperature 98.6 F 12/25/19 15:00 Pulse Rate 53 L 12/25/19 15:00 Respiratory Rate 18 12/25/19 15:00 Blood Pressure 146/67 H 12/25/19 15:00 Pulse Oximetry 96 12/25/19 15:00 Course Course Course Narrative: 1745: CT of the patient's abdomen reveals; MPRESSION: Generalized mild to moderate wall thickening and enhancement can be seen involving the sigmoid and the rectum. This is attributed to nonspecific colitis. Please correlate with potential infectious and inflammatory causes. Ischemia is considered to be less likely, given the distribution. Periumbilical hernia, which contains 1 loop of nondilated small bowel. This is new compared to the prior examination. Incidental note is made of: Small hiatal hernia Stable calcified lesion exophytic along the inferolateral aspect of the left kidney. L1 vertebroplasty cement Right hip arthroplasty Dictated by: Zaire Quiroz M.D. on 12/25/2019 at 16:25 Approved by: Zaire Quiroz M.D. on 12/25/2019 at 16:30 1822: The patient is nontender to palpation over her umbilicus or the umbilical hernia. The patient remains very tender in the left lower quadrant. However when asking if she has any pain or discomfort she denies any pain and discomfort. The patient will be discharged home and instructed to follow-up with her primary care physician and be re-evaluated in 48-72 hours. She will be placed on Cipro 500 mg b.i.d. and Flagyl 500 mg b.i.d. for acute colitis. For pain and discomfort she will be given Bentyl/dicyclomine 20 mg 3 times a day as needed. The patient will probably need to be referred to a material coordinator for a possible colonoscopy and biopsy of her colon Orders Ordered: ED Orders 12/25/19 15:40 Complete Blood Count AUTO DIFF Stat Comprehensive Metabolic Panel Stat Lactate (Lactic Acid) Stat Lipase Stat Partial Thromboplastin Time Stat Prothrombin Time INR Stat 12/25/19 15:44 EKG-12 Lead Stat 12/25/19 16:17 CT abdomen pelvis w con Stat Discontinued Medications Ciprofloxacin (Cipro) 500 mg PO NOW ONE Stop: 12/25/19 18:02 Last Admin: 12/25/19 18:31 Dose: 500 mg Documented by: KDWIGHT Diphenhydramine HCl (Benadryl) 25 mg IV NOW ONE Stop: 12/25/19 16:21 Last Admin: 12/25/19 16:25 Dose: 25 mg Documented by: SUHAS Hydromorphone HCl (Dilaudid) 0.5 mg IV NOW ONE Stop: 12/25/19 16:20 Last Admin: 12/25/19 16:26 Dose: 0.5 mg Documented by: SUHAS Sodium Chloride (Normal Saline 0.9%) 1,000 mls @ 1,000 mls/hr IV BOLUS ONE Stop: 12/25/19 17:17 Last Infusion: 12/25/19 18:44 Dose: 0 mls/hr Documented by: Admin: 12/25/19 16:25 Dose: 1,000 mls/hr Documented by: SUHAS Metronidazole (Metronidazole) 500 mg PO NOW ONE Stop: 12/25/19 18:02 Last Admin: 12/25/19 18:32 Dose: 500 mg Documented by: SUHAS Ondansetron HCl (Zofran) 4 mg IV NOW ONE Stop: 12/25/19 16:19 Last Admin: 12/25/19 16:25 Dose: 4 mg Documented by: SUHAS Vital Signs Vital signs: Vital Signs - 8 hr 12/25/19 15:00 12/25/19 15:40 12/25/19 15:41 Temperature 98.6 F Pulse Rate 53 L 51 L 51 L Respiratory Rate 18 Blood Pressure 146/67 H 155/73 H Pulse Oximetry 96 97 97 12/25/19 16:00 12/25/19 16:01 12/25/19 16:30 Temperature Pulse Rate 55 L 57 L 58 L Respiratory Rate 18 17 16 Blood Pressure 141/91 H Pulse Oximetry 97 96 98 12/25/19 17:07 12/25/19 17:18 12/25/19 17:20 Temperature Pulse Rate 61 58 L 61 Respiratory Rate 15 15 Blood Pressure 163/74 H 163/74 H Pulse Oximetry 96 99 97 12/25/19 17:30 12/25/19 18:00 12/25/19 18:21 Temperature Pulse Rate 61 59 L 59 L Respiratory Rate 15 16 13 Blood Pressure 177/77 H 151/106 H Pulse Oximetry 97 98 97 12/25/19 18:23 Temperature Pulse Rate 58 L Respiratory Rate 11 L Blood Pressure 185/79 H Pulse Oximetry 98 MDM - Abdominal Pain Medical Records Attestation: I reviewed the patient's medical records. Lab Data Attestation: I reviewed the patient's lab results. Result diagrams: 12/25/19 15:40 12/25/19 15:40 Labs: Lab Results 12/25/19 12/25/19 12/25/19 Range/Units 15:40 15:40 15:40 WBC 9.6 (4.5-11.0) X10^3/uL RBC 4.62 (4.0-5.2) X10^6/uL Hgb 13.5 (12.0-16.0) g/dL Hct 39.9 (36-46) % MCV 86.5 (80-100) fL MCH 29.2 (26-34) PG MCHC 33.8 (30-36) % RDW 13.8 (11.6-14.8) % Plt Count 224 (150-400) X10^3/uL Neut % (Auto) 55.3 (50-75) % Lymph % (Auto) 32.4 (25-40) % [place] % (Auto) 8.1 (3-14) % Eos % (Auto) 3.3 (2-4) % Baso % (Auto) 0.9 (0-2) % Neut # (Auto) 5300 (1113-5616) /uL Lymph # (Auto) 3100 (7943-0846) /uL [place] # (Auto) 800 (0-900) /uL Eos # (Auto) 300 (0-450) /uL Baso # (Auto) 100 (0-100) /uL PT 11.8 (10.1-12.7) SECONDS INR 1.0 (0.9-1.3) APTT 29 D (26.4-36.2) SECONDS Sodium 137 (137-145) mmol/L Potassium 4.3 (3.4-5.1) mmol/L Chloride 108 H (98-107) mmol/L Carbon Dioxide 22 (22-32) mmol/L BUN 47 H (7-17) mg/dL Creatinine 0.84 (0.52-1.04) mg/dL Estimated GFR > 60.0 (>60) mL/min BUN/Creatinine Ratio 56.0 H (6-22) Glucose 98 (80-110) mg/dL Lactate (0.7-2.1) mmol/L Calcium 9.8 (8.4-10.2) mg/dL Total Bilirubin 0.5 (0.2-1.3) mg/dL AST 32 (14-36) IU/L ALT 17 (<35) IU/L Alkaline Phosphatase 157 H (38-126) U/L Total Protein 7.0 (6.3-8.2) g/dL Albumin 3.8 (3.5-5.0) g/dL Globulin 3.2 (1.7-4.1) g/dL Albumin/Globulin Ratio 1.2 (1.0-2.8) Lipase 81 (23-300) U/L 12/25/19 Range/Units 15:40 WBC (4.5-11.0) X10^3/uL RBC (4.0-5.2) X10^6/uL Hgb (12.0-16.0) g/dL Hct (36-46) % MCV (80-100) fL MCH (26-34) PG MCHC (30-36) % RDW (11.6-14.8) % Plt Count (150-400) X10^3/uL Neut % (Auto) (50-75) % Lymph % (Auto) (25-40) % [place] % (Auto) (3-14) % Eos % (Auto) (2-4) % Baso % (Auto) (0-2) % Neut # (Auto) (5878-7415) /uL Lymph # (Auto) (5438-1326) /uL [place] # (Auto) (0-900) /uL Eos # (Auto) (0-450) /uL Baso # (Auto) (0-100) /uL PT (10.1-12.7) SECONDS INR (0.9-1.3) APTT (26.4-36.2) SECONDS Sodium (137-145) mmol/L Potassium (3.4-5.1) mmol/L Chloride (98-107) mmol/L Carbon Dioxide (22-32) mmol/L BUN (7-17) mg/dL Creatinine (0.52-1.04) mg/dL Estimated GFR (>60) mL/min BUN/Creatinine Ratio (6-22) Glucose (80-110) mg/dL Lactate 0.7 (0.7-2.1) mmol/L Calcium (8.4-10.2) mg/dL Total Bilirubin (0.2-1.3) mg/dL AST (14-36) IU/L ALT (<35) IU/L Alkaline Phosphatase (38-126) U/L Total Protein (6.3-8.2) g/dL Albumin (3.5-5.0) g/dL Globulin (1.7-4.1) g/dL Albumin/Globulin Ratio (1.0-2.8) Lipase (23-300) U/L Point of care testing: Point of Care Testing Stool Occult Blood Negative Urine Dip Bedside Urine Glucose Negative Bedside Urine Bilirubin - Negative Bedside Urine Ketone - Negative Urine Specific [place] 1.015 Bedside Urine Occult Blood - Negative Bedside Urine pH 6.0 Bedside Urine Protein - Negative Bedside Urine Urobilinogen - Negative Bedside Urine Nitrite - Negative Bedside Urine Leukocytes - Negative Esterase ECG Data Attestation: I personally reviewed and interpreted this ECG as follows: Interpretation: The patient's EKG is a sinus bradycardia with a ventricular rate of 57. Her intervals reveal a p.r. interval of 140 milliseconds QRS is prolonged at 178 milliseconds and is consistent with a left bundle branch block her QTC is borderline prolonged at 449 milliseconds with a left axis deviation. The patient has an occasional PVC. The patient's ST segments and T-wave changes are secondary to the left bundle branch block. Discharge Plan Departure Patient Disposition: Home Clinical Impression: Abdominal pain, LLQ, Colitis Hernia, umbilical Qualifiers: Obstruction and gangrene presence: without obstruction or gangrene Qualified Code(s): K42.9 - Umbilical hernia without obstruction or gangrene Dementia Qualifiers: Dementia type: unspecified type Dementia behavioral disturbance: without behavioral disturbance Qualified Code(s): F03.90 - Unspecified dementia without behavioral disturbance Discharge Date/Time: 12/25/19 18:58 Instructions: DI for Abdominal Pain-Adult, DI for Colitis Activity Restrictions/Additional Instructions: 1. Follow-up with your primary care physician to be re-evaluated in 48-72 hours and possibly referred to a material coordinator for occult anoscopy CC of your colon 2. If you develop severe pain and discomfort fever chills or sweats feelings of being faint or passing-out you need to return to the emergency department. 3. For pain and discomfort take dicyclomine 20 mg 3 times a day as needed. 4. Take the Cipro 500 mg twice a day until gone. 5. Take Flagyl 500 mg twice a day until gone. 6. Drink 2-4 L of fluid per day to keep yourself well hydrated. Prescriptions: New dicyclomine 20 mg tablet 20 mg PO BID PRN (Reason: abdominal pain and cramps) Qty: 15 RF: 0 metronidazole [Flagyl] 500 mg tablet 500 mg PO BID Qty: 20 RF: 0 ciprofloxacin HCl 500 mg tablet 500 mg PO BID Qty: 20 RF: 0 No Action escitalopram oxalate 10 mg tablet 10 mg PO .HS Qty: 90 RF: 3 levothyroxine 100 mcg tablet 100 mcg PO DAILY Qty: 90 RF: 3 (DME) Syringes: 1cc Insulin Syringes with Causey 0 .Route .MEDSUPPLY Qty: 100 RF: 3 furosemide 40 mg tablet See Rx Instructions .ROUTE .COMPLEX Qty: 180 RF: 3 loperamide [Imodium A-D] 2 mg tablet 2 mg PO Q1-2H PRNRF: 0 spironolactone 25 mg tablet 25 mg PO DAILY Qty: 30 RF: 5 losartan 50 mg tablet 25 mg PO DAILY 90 Days Qty: 90 RF: 3 carvedilol [Coreg] 6.25 mg tablet 6.25 mg PO BID Qty: 180 RF: 3 Lantus U-100 Insulin 100 unit/mL solution 40 unit SUBCUT DAILY Qty: 10 RF: 11 potassium chloride [K-Tab] 20 mEq tablet extended release 20 meq PO BID Qty: 180 RF: 3 Disabled Parking Permit 1 ea miscellaneous DIRECTED RF: 0 acetaminophen 325 mg Tablet 650 mg PO Q6HR PRN (Reason: Fever/Mild Pain (1-3)) Qty: 30 RF: 0 Referrals: Live Castro MD [Primary Care Provider] -
--- NOTE | 2019-12-25 16:17 | DI.CT.S_ITS ---
PROCEDURE: CT ABDOMEN PELVIS W CON INDICATIONS: left lower quadrant tenderness with guarding TECHNIQUE: After the administration of intravenous contrast, 5 mm thick sections acquired from the diaphragm to the symphysis. 5 mm coronal and sagittal reformats were acquired. For radiation dose reduction, the following was used: automated exposure control, adjustment of mA and/or kV according to patient size. COMPARISON: [facility], CT, ABDOMEN/PELVIS WITH CONTRAST, 09/10/2007, 21:17. FINDINGS: Image quality: There is streak artifact seen through the upper abdomen. Mild streak artifact from the right hip arthroplasty hardware is reduced by metal reduction reconstruction algorithm. ABDOMEN: Lung bases: Lung bases are clear. Heart size is normal. A small hiatal hernia is incidentally noted. Solid organs: Liver is normal in size and enhancement. Gallbladder wall is not thickened. Biliary system is non dilated. Pancreas enhances normally. Spleen is normal in size and enhancement. Accessory splenules are seen along the inferior aspect of the primary spleen. No adrenal nodules. Kidneys demonstrate normal size and enhancement, without hydronephrosis. A 1.3 cm calcified lesion is seen exophytic from the inferior pole the left kidney laterally, as before. Peritoneum and bowel: In this patient with this given history, scrutiny is given to the left lower quadrant and the sigmoid colon. Mild diverticulosis is seen. Negative for focal diverticulitis. Minimal to mild wall thickening and increased enhancement can be seen involving the rectum and the sigmoid. Nodes and vessels: No retroperitoneal or mesenteric adenopathy by size criteria. Aorta and inferior vena cava are normal in size. Atherosclerotic calcification is noted. Miscellaneous: There is a periumbilical hernia seen, which contains 1 loop of nondilated small bowel. PELVIS: Genitourinary: Bladder wall thickness is normal. The uterus appears normal for age. No adnexal masses are seen. Miscellaneous: No inguinal hernias or adenopathy. Bones: No suspicious bony lesions. His right hip arthroplasty hardware is seen. There is L1 vertebroplasty cement seen. No vertebral body compression fractures. IMPRESSION: Generalized mild to moderate wall thickening and enhancement can be seen involving the sigmoid and the rectum. This is attributed to nonspecific colitis. Please correlate with potential infectious and inflammatory causes. Ischemia is considered to be less likely, given the distribution. Periumbilical hernia, which contains 1 loop of nondilated small bowel. This is new compared to the prior examination. Incidental note is made of: Small hiatal hernia Stable calcified lesion exophytic along the inferolateral aspect of the left kidney. L1 vertebroplasty cement Right hip arthroplasty Dictated by: Zaire Quiroz M.D. on 12/25/2019 at 16:25 Approved by: Zaire Quiroz M.D. on 12/25/2019 at 16:30
[2019-12-25] MEDS: ONDANSETRON 4 MG/2 ML INJ IV (16:25)
[2019-12-25] MEDS: diphenhydrAMINE 50 MG/ML VIAL 25 MG IV (16:25)
[2019-12-25] MEDS: SODIUM CHLORIDE 0.9% 1,000 ML 1000 ML IV (16:25)
[2019-12-25] MEDS: HYDROMORPHONE 0.5 MG INJ IV (16:26)
[2019-12-25 18:07] LABS: Lactate (Lactic Acid) 0.7 mmol/L (0.7-2.1)
[2019-12-25] MEDS: CIPROFLOXACIN 500 MG TABLET PO (18:31)
[2019-12-25] MEDS: metroNIDAZOLE 250 MG TABLET 500 MG PO (18:32)
== END 2019-12-25 18:58 | disposition home or self-care (01) ==
PROVIDERS: Emergency Provider Emergency Medicine; PCP Family Medicine
DX: K52.9 Noninfective gastroenteritis and colitis, unspecified (principal); K42.9 Umbilical hernia without obstruction or gangrene; F03.90 Unspecified dementia, unspecified severity, without behavioral disturbance, psychotic disturbance, mood disturbance, and anxiety
CPT/HCPCS: 36415; 74177; 80053; 81003; 82272; 83605; 83690; 85025; 85610; 85730; 93005; 96361; 96374; 96375; 99285; J1170; J1200; J2405; Q9967

== ENCOUNTER 2020-01-26 12:09 | Observation (INO) | payer MEDICARE, SELFPAY ==
[2019-05-25 05:15] VITALS: BMI 31.6
[2019-05-25 05:36] VITALS: PULSE 81; RESP 22; O2SAT 98
[2020-01-26] VITALS (14 sets, daily range): BP systolic 130–192; BP diastolic 59–81; PULSE 58–64; RESP 11–18; TEMP 36.2–37.4; O2SAT 95–99; BMI 25.4
--- NOTE | 2020-01-26 12:54 | ED_ITS ---
HPI - Head Injury <Trish WilsonCARLY - Last Filed: 01/26/20 19:01> General Chief complaint: Head Injury Stated complaint: fall on Thu, confussion,dizzy, headache Time Seen by Provider: 01/26/20 12:44 Source: patient Mode of arrival: Wheelchair Limitations: no limitations History of Present Illness HPI Narrative: 79yo female presents to the ED after a fall on 4 days ago Thursday. Patient presents with has been who witness the fall. He states she was walking down the steps of motor home when she slipped on the step and on her right side hitting her head on the door. Patient fell down 2 stairs. No loss of consciousness, vomiting, or unusual behavior reported by . Patient st ates she initially did not have any pain for the 1st 2 days. However, over the past 48 hours she developed she developed RLQ abdominal pain. Patient states she had a few episodes of diarrhea prior to the fall on Thursday, diarrhea has resolved. She also reported that today around 0700 she was walking to the bathroom, she walked past the bathroom and into the bedroom and was confused about why she was in the bedroom. Has been reports in May she was admitted to the ICU and assisted care living facility for over 6 weeks due to CHF exacerbation and hypoxic brain injury. states her behavior has been normal since she has been home. Patient denies any headache at this time, blurry vision, vision loss, dizziness, neck pain, nausea, vomiting, diarrhea, chest pain, fevers, shortness of breath, or any other concerns. Related Data Home Medications Medication Instructions Recorded Confirmed Disabled Parking Permit 1 ea MISCELLANEOUS DIRECTED 08/20/18 01/27/20 loperamide 2 mg tablet 2 mg PO Q1-2H PRN tab 07/04/19 01/27/20 Previous Rx's Medication Instructions Recorded Syringes: 1cc Insulin Syringes #100 each 03/14/19 with [place] furosemide 40 mg tablet See Rx Instructions .ROUTE 03/14/19 .COMPLEX #180 tablet acetaminophen 650 mg PO Q6HR PRN #30 tab 05/31/19 losartan 50 mg tablet 25 mg PO DAILY 90 Days #90 tab 07/20/19 escitalopram oxalate 10 mg tablet 10 mg PO .HS #90 tab 08/04/19 carvedilol 6.25 mg tablet 6.25 mg PO BID #180 tab 08/29/19 insulin glargine 100 unit/mL 40 unit SUBCUT DAILY #10 ml 10/10/19 subcutaneous solution levothyroxine 100 mcg tablet 100 mcg PO DAILY #90 tab 11/03/19 potassium chloride 20 mEq 20 meq PO BID #180 tab 11/07/19 tablet,extended release spironolactone 25 mg tablet 25 mg PO DAILY #30 tab 12/26/19 atorvastatin [Lipitor] 10 mg PO BEDTIME #30 tab 01/27/20 Allergies Allergy/AdvReac Type Severity Reaction Status Date / Time egg Allergy Severe weakness Verified 01/26/20 11:48 on the right side of body after vaccine Anesthetics - Amide Type Allergy Unknown Verified 01/26/20 11:48 [ANESTHETICS - AMIDE TYPE] codeine [CODEINE] Allergy Unknown Verified 01/26/20 11:48 lidocaine [From XYLOCAINE] Allergy Unknown WHEN HAD Verified 01/26/20 11:48 TEETH WORKED ON lisinopril [LISINOPRIL] Allergy Unknown Verified 01/26/20 11:48 milk [MILK] Allergy Unknown Verified 01/26/20 11:48 morphine [MORPHINE] Allergy Unknown Verified 01/26/20 11:48 oxycodone [OXYCODONE] Allergy Unknown Verified 01/26/20 11:48 Penicillins [PENICILLINS] Allergy Unknown Verified 01/26/20 11:48 influenza virus vaccine, Allergy weakness Verified 01/26/20 11:48 specific on the right side of body after vaccine Review of Systems <CARLY Urbina - Last Filed: 01/26/20 19:01> Review of Systems Narrative: REVIEW OF SYSTEMS: GENERAL: Denies fever. HENT: Reports head trauma, see HPI. EYES: No vision changes. CARDIOVASCULAR: No chest pain. RESPIRATORY: No cough. GASTROINTESTINAL: Complains of right lower quadrant abdominal pain, see HPI GENITOURINARY: No flank pain, urinary incontinence, hesitancy, frequency, or dysuria. No vaginal discharge or dyspareunia. Denies concerns for STIs MUSCULOSKELETAL: No pain, weakness, or trauma. INTEGUMENTARY: No rash, lesions, or pruritus. NEURO: No numbness or tingling. Reports an episode of confusion. <Live Castro MD - Last Filed: 01/26/20 16:46> Constitutional Constitutional: Denies chills, Denies fatigue, Denies fever(s), Denies frequent falls, Denies lethargy and Denies weakness Eyes Eyes: Denies change in vision, Denies eye discharge, Denies irritation and Denies loss of vision ENT Ears, Nose, Mouth, and Throat: Denies change in voice, Denies dizziness, Denies neck pain, Denies sore throat and Denies throat swelling Cardiovascular Cardiovascular: Denies chest pain, Denies irregular heart rhythm, Denies lightheadedness, Denies palpitations, Denies dyspnea, Denies dyspnea on exertion and Denies orthopnea Respiratory Respiratory: Denies cough, Denies dyspnea, Denies dyspnea on exertion and Denies wheezing Gastrointestinal Gastrointestinal: Denies abdominal pain, Denies change in bowel habits, Denies diarrhea, Denies nausea and Denies vomiting Musculoskeletal Musculoskeletal: Denies neck pain and Denies numbness Integumentary/Breasts Skin/Breast: Denies pruritus, Denies erythema, Denies rash and Denies wounds Neurologic Neurologic: Denies behavioral changes, Denies confusion, Denies dizziness, Denies frequent falls, Denies loss of vision, Denies numbness and Denies weakness Psychiatric Psychiatric: Denies anxiety, Denies behavioral changes, Denies confusion, Denies depression, Denies homicidal ideation and Denies suicidal ideation Endocrine Endocrine: Denies fatigue, Denies flushing and Denies palpitations Hematologic/Lymphatic Hematologic/Lymphatic: Denies easy bruising Allergic/Immunologic Allergic/Immunologic: Denies urticaria, Denies throat swelling and Denies wheezing Patient History <Trish Wilson PADDING MACHINE OPERATOR - Last Filed: 01/26/20 19:01> Medical History (Updated 01/27/20 @ 07:37 by Eduardo Cordoba MD) Atrial fibrillation (Chronic 09/20/10) Bilateral shoulder pain (Inactive) Bipolar disorder (Chronic) Cardiomyopathy (Chronic) Chronic diarrhea (Chronic 06/10/16) Controlled type 2 diabetes mellitus (Chronic 09/20/10) Essential hypertension (Chronic 09/20/10) Head contusion (Resolved) History of Graves' disease (Chronic) History of placenta previa (Resolved) Irritable bowel syndrome (Chronic) Minor head injury without loss of consciousness (Resolved) Neuropathy of both feet (Chronic) Renal artery stenosis (Chronic 09/20/10) Retinal scar (Chronic) Rheumatoid arthritis (Chronic) Right leg pain (Resolved) Sprain of left shoulder (Inactive) Systolic congestive heart failure (Chronic 09/20/10) Thyroid nodule (Chronic) Vision disorder (Chronic) Surgical History Anesthesia (Resolved) History of hip replacement (Resolved) History of knee replacement (Resolved) History of partial surgical removal of colon (Resolved 06/10/16) Status post dilation and curettage Social History details: She is living with her in a trailer. She is a [employer] household members: spouse Smoking Status: Former smoker alcohol intake: former Smoking Status: Former smoker alcohol intake frequency: 0-2 drinks per day Substance Use Type: does not use Exam <CARLY Urbina - Last Filed: 01/26/20 19:01> Initial Vital Signs Initial Vital Signs: Vital Signs Pulse Rate 64 01/26/20 12:28 Blood Pressure 143/69 H 01/26/20 12:28 Pulse Oximetry 96 01/26/20 12:28 PHYSICAL EXAMINATION: GENERAL: Well groomed, alert, and cooperative. Answers questions promptly and appropriately. Vital signs noted. HENT: Normocephalic, tenderness to right occipital area with palpation. . EYES: PERRLA, EOMIs, conjunctiva pink, sclera white, no periorbital swelling. NECK: Mild lower cervical tenderness with palpation. CHEST: Normal to inspection and without deformities. CARDIOVASCULAR: S1 and S2 sounds normal. Regular rate and rhythm, no murmurs, clicks, or bruits. No pedal edema. RESPIRATORY: Normal respiratory rate, trachea midline, airway patent. No stridor, nasal flaring or accessory muscle use. Lungs are clear in all cavazos without wheeze, rhonchi, or crackles. GASTROINTESTINAL: Bowel sounds normoactive. Abdomen with right lower quadrant tenderness, no rebound tenderness. No organomegaly. MUSCULOSKELETAL: Significant tenderness to palpation of right wrist, abrasions and small amount of ecchymosis noted. No tenderness to palpation of elbow, shoulder, or right clavicle. Normal gait and coordination. Equal tone and mass bilaterally. EXTREMITIES: CMS intact. Moves all extremities. SKIN: Warm, dry, soft, appropriate color for ethnicity. No lesions, rashes, or wounds. NEURO: Alert and Oriented X 3. Good coordination. No ataxia. PSYCH: Appropriate affect and mood. <Live Castro MD - Last Filed: 01/26/20 16:46> Initial Vital Signs Initial Vital Signs: Vital Signs Pulse Rate 64 01/26/20 12:28 Blood Pressure 143/69 H 01/26/20 12:28 Pulse Oximetry 96 01/26/20 12:28 Const General: cooperative and well developed Nutritional Appearance: well nourished [facility] Head: normocephalic and atraumatic Ears: external ears normal and TM's normal bilaterally Nose: external nose normal and No nasal discharge Face and sinus: sinuses nontender, face symmetric, no sinus tenderness and No dr y mucous membranes Mouth: oral mucosae normal and moist mucous membranes Teeth and gingiva: dentition normal Throat: tonsils normal and uvula midline Eyes General: appearance normal, both eyes and all related structures Eyelids: eyelids normal Conjunctivae: conjunctivae normal Sclera: sclerae normal Pupils: PERRL EOM: EOM intact bilaterally Neck Neck: normal visual inspection, trachea midline, No lymphadenopathy, No midline deformity and No JVD Lymphatic: No lymphedema Chest Chest: normal inspection of the chest Resp Effort & Inspection: normal respiratory effort, able to speak in complete sentences, no respiratory distress and no use of accessory muscles Auscultation: clear to auscultation bilaterally, no rales, no rhonchi and no wheezes Cardio Rate: regular rate Rhythm: regular rhythm Heart Sounds: no click, no gallops, no murmurs and no rubs Pulses: normal peripheral pulses GI Inspection: non-distended Palpation: soft, no hepatosplenomegaly, No guarding, No pulsatile mass and No tender Auscultation: normal bowel sounds Back/Spine/Pelvis Back: No CVA tenderness Cervical Spine: cervical ROM normal and No pain with cervical ROM Thoracic/Lumbar Spine: thoracic and lumbar spine normal to inspection Skin General: no rashes or lesions noted, No jaundice and No petechiae Neuro General: patient alert, patient oriented x3, gait normal and no focal motor deficits Speech: speech normal Extrem General: full ROM, no clubbing, cyanosis or edema, no pedal edema and no calf tenderness Psych Appearance: well kempt Mental Status: mental status grossly normal Attitude: cooperative Thought Content: normal and suicidality Judgment: judgment good <Job Davies MD - Last Filed: 01/28/20 07:51> Initial Vital Signs Initial Vital Signs: Vital Signs Pulse Rate 64 01/26/20 12:28 Blood Pressure 143/69 H 01/26/20 12:28 Pulse Oximetry 96 01/26/20 12:28 Scores <CARLY Urbina - Last Filed: 01/26/20 19:01> NIH Stroke Scale Level of Conciousness: Alert, keenly responsive Ask month/age: Answers both questions correctly. Open/close eyes, close hand: Performs both tasks correctly Best gaze horizontal: Normal Visual cavazos: No visual loss Facial palsy: Normal symetrical movement Left arm drift: No drift for full 10 sec Right arm drift: No drift for full 10 sec Left leg drift: No drift for full 10 sec Right leg drift: No drift for full 10 sec Limb ataxia: Absent Sensory on face/arms/legs: Normal, no sensory loss Best language: No aphasia, normal Dysarthria: Normal Extinction or inattention: No abnormality Total NIH Stroke scale score: 0 Course <CARLY Urbina - Last Filed: 01/26/20 19:01> Course Course Narrative: 1500: Discussed plan of care with patient, discussed MRI was suggested by Neurology. Patient consented. at bedside. 1600: Discussed admission with patient and , patient consents. Orders Ordered: Discontinued Medications Acetaminophen (Tylenol) 650 mg PO Q6HR PRN PRN Reason: Fever/Mild Pain (1-3) Aspirin (Aspirin) 325 mg PO DAILY [facility] Last Admin: 01/27/20 08:23 Dose: 325 mg Documented by: CHLOE Atorvastatin Calcium (Lipitor) 10 mg PO BEDTIME [facility] Last Admin: 01/26/20 21:49 Dose: 10 mg Documented by: SERGIO Carvedilol (Coreg) 6.25 mg PO BID [facility] Last Admin: 01/27/20 08:23 Dose: 6.25 mg Documented by: Admin: 01/26/20 21:49 Dose: 6.25 mg Documented by: SERGIO Dextrose (D50w) 25 gm IV PRN PRN PRN Reason: Hypoglycemia Enoxaparin Sodium (Lovenox) 40 mg SUBCUT DAILY [facility] Last Admin: 01/27/20 08:25 Dose: 40 mg Documented by: CHLOE Escitalopram Oxalate (Lexapro) 10 mg PO .[facility] Furosemide (Lasix) 40 mg PO DAILY [facility] Last Admin: 01/27/20 08:23 Dose: 40 mg Documented by: CHLOE Insulin Aspart (Novolog Flexpen) 0 unit SUBCUT ACHS [facility]; Protocol Last Admin: 01/27/20 12:05 Dose: Not Given Documented by: Admin: 01/27/20 08:22 Dose: Not Given Documented by: Admin: 01/26/20 21:48 Dose: 2 unit Documented by: SERGIO Cosigned by: BELL Admin: 01/26/20 18:14 Dose: Not Given Documented by: SERGIO Insulin Glargine (Lantus (Vial)) 40 unit SUBCUT DAILY [facility] Insulin Glargine (Lantus Solostar (Pen)) 40 unit SUBCUT DAILY [facility] Last Admin: 01/27/20 08:42 Dose: 40 unit Documented by: CHLOE Cosigned by: IRENE Levothyroxine Sodium (Synthroid) 100 mcg PO DAILY [facility] Last Admin: 01/27/20 08:24 Dose: 100 mcg Documented by: CHLOE Loperamide HCl (Imodium) 2 mg PO BID [facility] Last Admin: 01/27/20 08:23 Dose: 2 mg Documented by: Admin: 01/26/20 21:49 Dose: 2 mg Documented by: SERGIO Lorazepam (Ativan) 0.5 mg IV NOW ONE Stop: 01/26/20 15:16 Last Admin: 01/26/20 15:24 Dose: 0.5 mg Documented by: PARAS Losartan Potassium (Cozaar) 25 mg PO DAILY [facility] Last Admin: 01/27/20 08:26 Dose: 25 mg Documented by: CHLOE Naloxone HCl (Narcan) 0.2 mg IV Q2MIN PRN PRN Reason: Opiate Reversal Ondansetron HCl (Zofran) 4 mg IV Q8HR PRN PRN Reason: Nausea And Vomiting Sodium Chloride (Normal Saline 0.9% Flush) 10 ml IV PRN PRN PRN Reason: Flush Sodium Chloride (Normal Saline 0.9% Flush) 10 ml IV BID [facility] Last Admin: 01/27/20 08:25 Dose: 10 ml Documented by: CHLOE Spironolactone (Aldactone) 25 mg PO DAILY [facility] Last Admin: 01/27/20 08:24 Dose: 25 mg Documented by: CHLOE Consultations Consultation #1: 1330: Patient staffed with Dr. Davies discussed patient's symptoms, test, test results, plan of care 1450: I spoke with neurologist Dr. Pierre via telestroke line who suggested MRI with and without contrast. Some concerns for infarct versus tumor. Discussed patient is not a candidate for tPA or vascular intervention. 1540: I spoke with Dr. Castro, discussed patient's history, test, and test results. Accepts for admission. Requesting EKG order. Vital Signs Vital signs: Vital Signs - 8 hr 01/26/20 12:28 01/26/20 12:30 01/26/20 12:32 Temperature 99.3 F Pulse Rate 64 61 64 Respiratory Rate 18 Blood Pressure 143/69 H 192/80 H 143/69 H Pulse Oximetry 96 97 97 01/26/20 13:00 01/26/20 13:30 01/26/20 13:31 Temperature Pulse Rate 61 58 L 58 L Respiratory Rate Blood Pressure 160/73 H 178/81 H Pulse Oximetry 97 95 97 01/26/20 14:22 01/26/20 14:30 01/26/20 14:31 Temperature Pulse Rate 58 L 58 L Respiratory Rate Blood Pressure 155/81 H Pulse Oximetry 97 97 98 01/26/20 15:00 01/26/20 15:01 Temperature Pulse Rate 59 L 60 Respiratory Rate 12 11 L Blood Pressure 155/72 H Pulse Oximetry 96 97 <Live Castro MD - Last Filed: 01/26/20 16:46> Orders Ordered: Discontinued Medications Acetaminophen (Tylenol) 650 mg PO Q6HR PRN PRN Reason: Fever/Mild Pain (1-3) Aspirin (Aspirin) 325 mg PO DAILY [facility] Last Admin: 01/27/20 08:23 Dose: 325 mg Documented by: CHLOE Atorvastatin Calcium (Lipitor) 10 mg PO BEDTIME [facility] Last Admin: 01/26/20 21:49 Dose: 10 mg Documented by: SERGIO Carvedilol (Coreg) 6.25 mg PO BID [facility] Last Admin: 01/27/20 08:23 Dose: 6.25 mg Documented by: Admin: 01/26/20 21:49 Dose: 6.25 mg Documented by: SERGIO Dextrose (D50w) 25 gm IV PRN PRN PRN Reason: Hypoglycemia Enoxaparin Sodium (Lovenox) 40 mg SUBCUT DAILY [facility] Last Admin: 01/27/20 08:25 Dose: 40 mg Documented by: CHLOE Escitalopram Oxalate (Lexapro) 10 mg PO .HS [facility] Furosemide (Lasix) 40 mg PO DAILY [facility] Last Admin: 01/27/20 08:23 Dose: 40 mg Documented by: CHLOE Insulin Aspart (Novolog Flexpen) 0 unit SUBCUT ACHS [facility]; Protocol Last Admin: 01/27/20 12:05 Dose: Not Given Documented by: Admin: 01/27/20 08:22 Dose: Not Given Documented by: Admin: 01/26/20 21:48 Dose: 2 unit Documented by: SERGIO Cosigned by: BELL Admin: 01/26/20 18:14 Dose: Not Given Documented by: SERGIO Insulin Glargine (Lantus (Vial)) 40 unit SUBCUT DAILY [facility] Insulin Glargine (Lantus Solostar (Pen)) 40 unit SUBCUT DAILY [facility] Last Admin: 01/27/20 08:42 Dose: 40 unit Documented by: CHLOE Cosigned by: IRENE Levothyroxine Sodium (Synthroid) 100 mcg PO DAILY [facility] Last Admin: 01/27/20 08:24 Dose: 100 mcg Documented by: CHLOE Loperamide HCl (Imodium) 2 mg PO BID [facility] Last Admin: 01/27/20 08:23 Dose: 2 mg Documented by: Admin: 01/26/20 21:49 Dose: 2 mg Documented by: SERGIO Lorazepam (Ativan) 0.5 mg IV NOW ONE Stop: 01/26/20 15:16 Last Admin: 01/26/20 15:24 Dose: 0.5 mg Documented by: PARAS Losartan Potassium (Cozaar) 25 mg PO DAILY [facility] Last Admin: 01/27/20 08:26 Dose: 25 mg Documented by: CHLOE Naloxone HCl (Narcan) 0.2 mg IV Q2MIN PRN PRN Reason: Opiate Reversal Ondansetron HCl (Zofran) 4 mg IV Q8HR PRN PRN Reason: Nausea And Vomiting Sodium Chloride (Normal Saline 0.9% Flush) 10 ml IV PRN PRN PRN Reason: Flush Sodium Chloride (Normal Saline 0.9% Flush) 10 ml IV BID [facility] Last Admin: 01/27/20 08:25 Dose: 10 ml Documented by: CHLOE Spironolactone (Aldactone) 25 mg PO DAILY [facility] Last Admin: 01/27/20 08:24 Dose: 25 mg Documented by: CHLOE Vital Signs Vital signs: Vital Signs - 8 hr 01/26/20 12:28 01/26/20 12:30 01/26/20 12:32 Temperature 99.3 F Pulse Rate 64 61 64 Respiratory Rate 18 Blood Pressure 143/69 H 192/80 H 143/69 H Pulse Oximetry 96 97 97 01/26/20 13:00 01/26/20 13:30 01/26/20 13:31 Temperature Pulse Rate 61 58 L 58 L Respiratory Rate Blood Pressure 160/73 H 178/81 H Pulse Oximetry 97 95 97 01/26/20 14:22 01/26/20 14:30 01/26/20 14:31 Temperature Pulse Rate 58 L 58 L Respiratory Rate Blood Pressure 155/81 H Pulse Oximetry 97 97 98 01/26/20 15:00 01/26/20 15:01 Temperature Pulse Rate 59 L 60 Respiratory Rate 12 11 L Blood Pressure 155/72 H Pulse Oximetry 96 97 <Job Davies MD - Last Filed: 01/28/20 07:51> Orders Ordered: Discontinued Medications Acetaminophen (Tylenol) 650 mg PO Q6HR PRN PRN Reason: Fever/Mild Pain (1-3) Aspirin (Aspirin) 325 mg PO DAILY [facility] Last Admin: 01/27/20 08:23 Dose: 325 mg Documented by: CHLOE Atorvastatin Calcium (Lipitor) 10 mg PO BEDTIME [facility] Last Admin: 01/26/20 21:49 Dose: 10 mg Documented by: SERGIO Carvedilol (Coreg) 6.25 mg PO BID [facility] Last Admin: 01/27/20 08:23 Dose: 6.25 mg Documented by: Admin: 01/26/20 21:49 Dose: 6.25 mg Documented by: SERGIO Dextrose (D50w) 25 gm IV PRN PRN PRN Reason: Hypoglycemia Enoxaparin Sodium (Lovenox) 40 mg SUBCUT DAILY [facility] Last Admin: 01/27/20 08:25 Dose: 40 mg Documented by: CHLOE Escitalopram Oxalate (Lexapro) 10 mg PO .[facility] Furosemide (Lasix) 40 mg PO DAILY [facility] Last Admin: 01/27/20 08:23 Dose: 40 mg Documented by: CHLOE Insulin Aspart (Novolog Flexpen) 0 unit SUBCUT ACHS [facility]; Protocol Last Admin: 01/27/20 12:05 Dose: Not Given Documented by: Admin: 01/27/20 08:22 Dose: Not Given Documented by: Admin: 01/26/20 21:48 Dose: 2 unit Documented by: SERGIO Cosigned by: BELL Admin: 01/26/20 18:14 Dose: Not Given Documented by: SERGIO Insulin Glargine (Lantus (Vial)) 40 unit SUBCUT DAILY [facility] Insulin Glargine (Lantus Solostar (Pen)) 40 unit SUBCUT DAILY [facility] Last Admin: 01/27/20 08:42 Dose: 40 unit Documented by: CHLOE Cosigned by: IRENE Levothyroxine Sodium (Synthroid) 100 mcg PO DAILY [facility] Last Admin: 01/27/20 08:24 Dose: 100 mcg Documented by: CHLOE Loperamide HCl (Imodium) 2 mg PO BID [facility] Last Admin: 01/27/20 08:23 Dose: 2 mg Documented by: Admin: 01/26/20 21:49 Dose: 2 mg Documented by: SERGIO Lorazepam (Ativan) 0.5 mg IV NOW ONE Stop: 01/26/20 15:16 Last Admin: 01/26/20 15:24 Dose: 0.5 mg Documented by: PARAS Losartan Potassium (Cozaar) 25 mg PO DAILY [facility] Last Admin: 01/27/20 08:26 Dose: 25 mg Documented by: CHLOE Naloxone HCl (Narcan) 0.2 mg IV Q2MIN PRN PRN Reason: Opiate Reversal Ondansetron HCl (Zofran) 4 mg IV Q8HR PRN PRN Reason: Nausea And Vomiting Sodium Chloride (Normal Saline 0.9% Flush) 10 ml IV PRN PRN PRN Reason: Flush Sodium Chloride (Normal Saline 0.9% Flush) 10 ml IV BID [facility] Last Admin: 01/27/20 08:25 Dose: 10 ml Documented by: CHLOE Spironolactone (Aldactone) 25 mg PO DAILY [facility] Last Admin: 01/27/20 08:24 Dose: 25 mg Documented by: CHLOE Vital Signs Vital signs: Vital Signs - 8 hr 01/26/20 12:28 01/26/20 12:30 01/26/20 12:32 Temperature 99.3 F Pulse Rate 64 61 64 Respiratory Rate 18 Blood Pressure 143/69 H 192/80 H 143/69 H Pulse Oximetry 96 97 97 01/26/20 13:00 01/26/20 13:30 01/26/20 13:31 Temperature Pulse Rate 61 58 L 58 L Respiratory Rate Blood Pressure 160/73 H 178/81 H Pulse Oximetry 97 95 97 01/26/20 14:22 01/26/20 14:30 01/26/20 14:31 Temperature Pulse Rate 58 L 58 L Respiratory Rate Blood Pressure 155/81 H Pulse Oximetry 97 97 98 01/26/20 15:00 01/26/20 15:01 Temperature Pulse Rate 59 L 60 Respiratory Rate 12 11 L Blood Pressure 155/72 H Pulse Oximetry 96 97 MDM - Head Injury <CARLY Urbina - Last Filed: 01/26/20 19:01> Medical Records Attestation: I reviewed the patient's medical records. Lab Data Attestation: I reviewed the patient's lab results. Result diagrams: 01/27/20 06:05 01/27/20 06:05 Labs: Lab Results 01/26/20 01/26/20 Range/Units 13:40 13:40 WBC 8.0 (4.5-11.0) X10^3/uL RBC 4.67 (4.0-5.2) X10^6/uL Hgb 13.4 (12.0-16.0) g/dL Hct 40.7 (36-46) % MCV 87.0 (80-100) fL MCH 28.6 (26-34) PG MCHC 32.8 (30-36) % RDW 13.6 (11.6-14.8) % Plt Count 223 (150-400) X10^3/uL Neut % (Auto) 53.9 (50-75) % Lymph % (Auto) 31.0 (25-40) % [place] % (Auto) 10.4 (3-14) % Eos % (Auto) 3.6 (2-4) % Baso % (Auto) 1.1 (0-2) % Neut # (Auto) 4300 (0465-7533) /uL Lymph # (Auto) 2500 (6944-0416) /uL [place] # (Auto) 800 (0-900) /uL Eos # (Auto) 300 (0-450) /uL Baso # (Auto) 100 (0-100) /uL Sodium 138 (137-145) mmol/L Potassium 4.5 (3.4-5.1) mmol/L Chloride 105 (98-107) mmol/L Carbon Dioxide 24 (22-32) mmol/L BUN 35 H (7-17) mg/dL Creatinine 0.85 (0.52-1.04) mg/dL Estimated GFR > 60.0 (>60) mL/min BUN/Creatinine Ratio 41.2 H (6-22) Glucose 191 H (80-110) mg/dL Calcium 9.4 (8.4-10.2) mg/dL Total Bilirubin 0.4 (0.2-1.3) mg/dL AST 34 (14-36) IU/L ALT 22 (<35) IU/L Alkaline Phosphatase 129 H (38-126) U/L Total Protein 7.2 (6.3-8.2) g/dL Albumin 3.8 (3.5-5.0) g/dL Globulin 3.4 (1.7-4.1) g/dL Albumin/Globulin Ratio 1.1 (1.0-2.8) Lipase 71 (23-300) U/L Urine Dip Bedside Urine Glucose Negative Bedside Urine Bilirubin - Negative Bedside Urine Ketone - Negative Urine Specific [place] 1.020 Bedside Urine Occult Blood - Negative Bedside Urine pH 6.0 Bedside Urine Protein - Negative Bedside Urine Urobilinogen - Negative Bedside Urine Nitrite - Negative Bedside Urine Leukocytes - Negative Esterase Imaging Data Wrist Xray: Radiologist's Impression: [address] [address] XRay Report Signed Patient: Batsheva Burgess [facility]#: [id number] : 1941Acct:[id number] Age/Sex: 79 / FDate of Service: 01/26/20 Loc: ED Accession Number: [id number] Procedure: XR wrist RT min 3V Ordering Provider: Trish Wilson PROCEDURE: XR WRIST RT MIN 3V INDICATIONS: R wrist pain post fall TECHNIQUE: 4 views of the wrist were acquired. COMPARISON: [facility], CR, XR WRIST LT MIN 3V, 08/20/2018, 16:46. [facility], CR, WRIST MINIMUM 3 VIEWS LEFT, 08/12/2015, 18:17. FINDINGS: Bones: No fractures or dislocations. 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 No suspicious bony lesions. Osteopenia. Scaphoid view: Intact. Soft tissues: No suspicious soft tissue calcifications. IMPRESSION: No acute osseous abnormality. Osteopenia. Follow-up radiographs in 10-14 days could be considered if concern for occult fracture. Dictated by: Josef Willis M.D. on 01/26/2020 at 13:00 Approved by: Josef Willis M.D. on 01/26/2020 at 13:[address]: Radiologist's Impression: [place] [address] CT Scan Report Signed Patient: Batsheva Burgess [facility]#: [id number] : 1941Acct:[id number] Age/Sex: 79 / FDate of Service: 01/26/20 Loc: ED Accession Number: [id number] Procedure: CT cervical spine wo con Ordering Provider: Trish Wilson PROCEDURE: CT CERVICAL SPINE WO CON INDICATIONS: neck pain post fall on right side 4 days ago TECHNIQUE: Noncontrast 3 mm thick sections acquired from the skull base to the T4 level. Sagittal and coronal reformats were then constructed. For radiation dose reduction, the following was used: automated exposure control, adjustment of mA and/or kV according to patient size. COMPARISON: [facility], CT, CT CERVICAL SPINE WO CON, 08/20/2018, 16:38. FINDINGS: Image quality: Excellent. Bones: No fractures or dislocations. There is straightening of normal cervical lordosis. Degenerative endplate changes and bilateral facet hypertrophic changes are noted throughout cervical spine more prominent at C4-5 through C6-7 levels. Minimal anterolisthesis of T1 on T2 is noted unchanged from prior studies. Visualized superior ribs are intact. Soft tissues: Prevertebral soft tissues are normal in thickness. No paravertebral hematomas. No apical pneumothoraces. IMPRESSION: Degenerative disc disease throughout cervical spine. No acute fracture or dislocation. No significant changes from previous study. Dictated by: Carlos Hartley M.D. on 01/26/2020 at 13:55 Approved by: Carlos Hartley M.D. on 01/26/2020 at 13:[address]: Radiologist's Impression: [place] [address] CT Scan Report Signed Patient: Batsheva Burgess [facility]#: [id number] : 9Acct:[id number] Age/Sex: 79 / FDate of Service: 01/26/20 Loc: ED Accession Number: [id number] Procedure: CT head/brain wo con Ordering Provider: Trish Wilson PROCEDURE: CT HEAD/BRAIN WO CON INDICATIONS: Fall, hit head 4 days ago, confusion TECHNIQUE: Noncontrast 4.5 mm thick angled axial sections acquired from the foramen magnum to the vertex, with coronal and sagittal reformats. For radiation dose reduction, the following was used: automated exposure control, adjustment of mA and/or kV according to patient size. COMPARISON: [facility], CT, CT HEAD/BRAIN W CON, 05/27/2019, 19:54. [facility], CT, CT HEAD/BRAIN WO CON, 08/20/2018, 16:38. FINDINGS: Image quality: Excellent. CSF spaces: Basal cisterns are patent. No extra-axial fluid collections. The ventricles are symmetric in size and shape. Brain: No intracranial bleeds or masses. There is cerebral volume loss for age, with resultant ventricular and sulcal prominence. Focal hypodensity in the left occipital region medially with ill definition of the great white matter. This is superimposed on moderate to severe patchy periventricular white matter hypodensities. There are focal lacunar infarcts in the left parietal singh radiata. There is intracranial internal carotid artery atherosclerosis. Skull and face: Calvarium and visualized facial bones appear intact, without suspicious lesions. Sinuses: Visualized sinuses and mastoids are clear. IMPRESSION: 1. There is a new area of hypodensity and poorly defined sanchez-white matter in th e left occipital region suggestive of a subacute infarct. Consider MR imaging to assess for chronicity if this will change clinical management. 2. No CT evidence of acute intracranial trauma. 3. There is a background of moderate to severe chronic small vessel ischemic changes. Dictated by: Katelyn Chen M.D. on 01/26/2020 at 14:04 Approved by: Katelyn Chen M.D. on 01/26/2020 at 14:09 CT scan - abdomen/pelvis: Radiologist's Impression: [address] [address] [address] Scan Report Signed Patient: Batsheva Burgess [facility]#: [id number] : 9Acct:[id number] Age/Sex: 79 / FDate of Service: 01/26/20 Loc: ED Accession Number: [id number] Procedure: CT abdomen pelvis w con Ordering Provider: Trish Wilson PROCEDURE: CT ABDOMEN PELVIS W CON INDICATIONS: RLQ pain with diarrhea post fall on side TECHNIQUE: After the administration of intravenous contrast, 5 mm thick sections acquired from the diaphragm to the symphysis. 5 mm coronal and sagittal reformats were acquired. For radiation dose reduction, the following was used: automated exposure control, adjustment of mA and/or kV according to patient size. COMPARISON: [facility], CT, CT ABDOMEN PELVIS W CON, 12/25/2019, 16:38. [facility], CT, ABDOMEN/PELVIS WITH CONTRAST, 09/10/2007, 21:17. FINDINGS: Image quality: Excellent. ABDOMEN: Lung bases: Lung bases are clear. Heart size is normal. Solid organs: Liver is normal in size and enhancement. Gallbladder appears normal . Biliary system is non dilated. Pancreas enhances normally. Spleen is normal in size and enhancement. No adrenal nodules. Kidneys demonstrate normal size and enhancement, without hydronephrosis. Peritoneum and bowel: Bowel loops demonstrate normal wall thickness and caliber. No free fluid or air. Nodes and vessels: No retroperitoneal or mesenteric adenopathy by size criter ia. Aorta and inferior vena cava are normal in size. Miscellaneous: No ventral hernias. At the upper lumbar spine, L1 level, what appears to be vertebroplasty bone cement is present, also present on prior CT scanning 12/25/19. PELVIS: Genitourinary: Bladder wall thickness is normal. Miscellaneous: No inguinal hernias or adenopathy. A normal or abnormal appendix could not be located at the right lower quadrant. There is no evidence of diverticulitis. No inflammatory free fluid is seen throughout the peritoneal space. Bones: No suspicious bony lesions. No vertebral body compression fractures. IMPRESSION: No trauma found, no sign of diverticulitis or appendicitis. Source of persistent pain and reported diarrhea is not identified. Dictated by: Herve Judge M.D. on 01/26/2020 at 14:15 Approved by: Herve Judge M.D. on 01/26/2020 at 14:18 Brain MRI: Radiologist's Impression: [address] [address] Magnetic Resonance Report Signed Patient: Batsheva Burgess [facility]#: [id number] : 9Acct:[id number] Age/Sex: 79 / FDate of Service: 01/26/20 Loc: HQ76N-6 Accession Number: [id number] Procedure: MR head/brain wo/w con Ordering Provider: Trish Wilson PROCEDURE: MR HEAD/BRAIN WO/W CON INDICATIONS: subacute changes on CT TECHNIQUE: Noncontrast axial T1 spin echo, axial T2 fast spin echo, sagittal and axial FLAI R, coronal T2 fast spin echo, axial gradient echo, axial diffusion and ADC through the brain. After the administration of contrast, axial and coronal 3D VIBE or T1 spin echo with fat saturation through the brain. COMPARISON: [facility], CT, CT HEAD/BRAIN W CON, 05/27/2019, 19:54. [facility], CT, CT HEAD/BRAIN WO CON, 01/26/2020, 13:41. FINDINGS: Image quality: Excellent. The ventricular system and cortical sulci demonstrate atrophy, consistent for the patient's stated age. There are areas of increased T2/FLAIR signal intensity within the periventricular and subcortical white matter. There is no acute intra-or extra axial fluid collection. No acute hemorrhage, mass lesion or midline shift. Brainstem is unremarkable. There are no areas of restricted diffusion. Areas of previous lacunar ischemia noted within the right basal ganglia as well as bilateral thalami. Left medial occipital lobe focus of hyperintensity is present without diffusion changes, likely representing late subacute/early chronic ischemia. Areas of hypointensity are present on diffusion trace images suspected to represent artifact. Globes are symmetrical. Sinuses are aerated. Osseous structures are intact. IMPRESSION: 1. No acute intracranial process. No acute ischemia. 2. Moderate atrophy and chronic microvascular ischemic changes. Dictated by: Sue Monroy M.D. on 01/26/2020 at 16:14 Approved by: Sue Monroy M.D. on 01/26/2020 at 16:52 ECG Data Interpretation: 1616: Sinus rhythm, rate 63, OH interval 180, QTC 495. No ST elevation or ST depression. Multiple PVCs noted. EKG also viewed by Dr. Davies per protocol . MDM Narrative Medical decision making narrative: 79-year-old female presenting to the emergency department for episode of confusion after a fall 4 days ago. History and CT imaging concerning for cerebral infarction. Patient had NIH score of 0, symptoms started at 0700 today and resolved approximately [address]. Discuss[address] CT findings with Neurology Dr. Pierre, they recommended a brain MRI with and without contrast. Less concern for other injuries as CT cervical spine was negative, x-ray was ordered for right wrist given bruising and pain which was negative. Patient also complained of episodes of abdominal pain and diarrhea, given tenderness on palpation, CT abdomen was ordered. No acute abdominal etiology on CT, laboratory work within normal limits. Symptoms may be caused by IBS as in patient has prior history. Less likely severe acute infection given lack of tachycardia or fever, white blood cell count within normal limits. Given CT head findings, Dr. Castro was consulted for admission and accepted. Patient admitted for further workup and evaluation. NIH remained 0 throughout the entire emergency department stay Plan of care was explained numerous times to patient, consented for admission and MRI studies. <Live Castro MD - Last Filed: 01/26/20 16:46> Lab Data Labs: Lab Results 01/26/20 01/26/20 Range/Units 13:40 13:40 WBC 8.0 (4.5-11.0) X10^3/uL RBC 4.67 (4.0-5.2) X10^6/uL Hgb 13.4 (12.0-16.0) g/dL Hct 40.7 (36-46) % MCV 87.0 (80-100) fL MCH 28.6 (26-34) PG MCHC 32.8 (30-36) % RDW 13.6 (11.6-14.8) % Plt Count 223 (150-400) X10^3/uL Neut % (Auto) 53.9 (50-75) % Lymph % (Auto) 31.0 (25-40) % [place] % (Auto) 10.4 (3-14) % Eos % (Auto) 3.6 (2-4) % Baso % (Auto) 1.1 (0-2) % Neut # (Auto) 4300 (0232-3566) /uL Lymph # (Auto) 2500 (3906-7518) /uL [place] # (Auto) 800 (0-900) /uL Eos # (Auto) 300 (0-450) /uL Baso # (Auto) 100 (0-100) /uL Sodium 138 (137-145) mmol/L Potassium 4.5 (3.4-5.1) mmol/L Chloride 105 (98-107) mmol/L Carbon Dioxide 24 (22-32) mmol/L BUN 35 H (7-17) mg/dL Creatinine 0.85 (0.52-1.04) mg/dL Estimated GFR > 60.0 (>60) mL/min BUN/Creatinine Ratio 41.2 H (6-22) Glucose 191 H (80-110) mg/dL Calcium 9.4 (8.4-10.2) mg/dL Total Bilirubin 0.4 (0.2-1.3) mg/dL AST 34 (14-36) IU/L ALT 22 (<35) IU/L Alkaline Phosphatase 129 H (38-126) U/L Total Protein 7.2 (6.3-8.2) g/dL Albumin 3.8 (3.5-5.0) g/dL Globulin 3.4 (1.7-4.1) g/dL Albumin/Globulin Ratio 1.1 (1.0-2.8) Lipase 71 (23-300) U/L Urine Dip Bedside Urine Glucose Negative Bedside Urine Bilirubin - Negative Bedside Urine Ketone - Negative Urine Specific [place] 1.020 Bedside Urine Occult Blood - Negative Bedside Urine pH 6.0 Bedside Urine Protein - Negative Bedside Urine Urobilinogen - Negative Bedside Urine Nitrite - Negative Bedside Urine Leukocytes - Negative Esterase <Job Davies MD - Last Filed: 01/28/20 07:51> Lab Data Labs: Lab Results 01/26/20 01/26/20 Range/Units 13:40 13:40 WBC 8.0 (4.5-11.0) X10^3/uL RBC 4.67 (4.0-5.2) X10^6/uL Hgb 13.4 (12.0-16.0) g/dL Hct 40.7 (36-46) % MCV 87.0 (80-100) fL MCH 28.6 (26-34) PG MCHC 32.8 (30-36) % RDW 13.6 (11.6-14.8) % Plt Count 223 (150-400) X10^3/uL Neut % (Auto) 53.9 (50-75) % Lymph % (Auto) 31.0 (25-40) % [place] % (Auto) 10.4 (3-14) % Eos % (Auto) 3.6 (2-4) % Baso % (Auto) 1.1 (0-2) % Neut # (Auto) 4300 (2266-0662) /uL Lymph # (Auto) 2500 (2935-8569) /uL [place] # (Auto) 800 (0-900) /uL Eos # (Auto) 300 (0-450) /uL Baso # (Auto) 100 (0-100) /uL Sodium 138 (137-145) mmol/L Potassium 4.5 (3.4-5.1) mmol/L Chloride 105 (98-107) mmol/L Carbon Dioxide 24 (22-32) mmol/L BUN 35 H (7-17) mg/dL Creatinine 0.85 (0.52-1.04) mg/dL Estimated GFR > 60.0 (>60) mL/min BUN/Creatinine Ratio 41.2 H (6-22) Glucose 191 H (80-110) mg/dL Calcium 9.4 (8.4-10.2) mg/dL Total Bilirubin 0.4 (0.2-1.3) mg/dL AST 34 (14-36) IU/L ALT 22 (<35) IU/L Alkaline Phosphatase 129 H (38-126) U/L Total Protein 7.2 (6.3-8.2) g/dL Albumin 3.8 (3.5-5.0) g/dL Globulin 3.4 (1.7-4.1) g/dL Albumin/Globulin Ratio 1.1 (1.0-2.8) Lipase 71 (23-300) U/L Urine Dip Bedside Urine Glucose Negative Bedside Urine Bilirubin - Negative Bedside Urine Ketone - Negative Urine Specific [place] 1.020 Bedside Urine Occult Blood - Negative Bedside Urine pH 6.0 Bedside Urine Protein - Negative Bedside Urine Urobilinogen - Negative Bedside Urine Nitrite - Negative Bedside Urine Leukocytes - Negative Esterase Discharge Plan Departure Patient Disposition: Admitted as Observation Clinical Impression: Cerebral infarct Qualifiers: Cerebral infarction mechanism: unspecified mechanism Qualified Code(s): I63.9 - Cerebral infarction, unspecified Fall Qualifiers: Encounter type: initial encounter Qualified Code(s): W19.XXXA - Unspecified fall, initial encounter Discharge Date/Time: 01/26/20 16:36 Instructions: How to Prevent Falls, Atorvastatin Referrals: Live Castro MD [Primary Care Provider] - 1 Week Admit Date/Time: 01/26/20 15:44 Admit Provider: Live Castro <Job Davies MD - Last Filed: 01/28/20 07:51> Cosign ED Attending Cosignature Attestation: I was immediately available in the department for consultation. This documentation has been reviewed and I agree with assessment and plan. Supervised by Job Davies MD
--- NOTE | 2020-01-26 13:02 | DI.CT.S_ITS ---
PROCEDURE: CT CERVICAL SPINE WO CON INDICATIONS: neck pain post fall on right side 4 days ago TECHNIQUE: Noncontrast 3 mm thick sections acquired from the skull base to the T4 level. Sagittal and coronal reformats were then constructed. For radiation dose reduction, the following was used: automated exposure control, adjustment of mA and/or kV according to patient size. COMPARISON: [facility], CT, CT CERVICAL SPINE WO CON, 08/20/2018, 16:38. FINDINGS: Image quality: Excellent. Bones: No fractures or dislocations. There is straightening of normal cervical lordosis. Degenerative endplate changes and bilateral facet hypertrophic changes are noted throughout cervical spine more prominent at C4-5 through C6-7 levels. Minimal anterolisthesis of T1 on T2 is noted unchanged from prior studies. Visualized superior ribs are intact. Soft tissues: Prevertebral soft tissues are normal in thickness. No paravertebral hematomas. No apical pneumothoraces. IMPRESSION: Degenerative disc disease throughout cervical spine. No acute fracture or dislocation. No significant changes from previous study. Dictated by: Carlos Hartley M.D. on 01/26/2020 at 13:55 Approved by: Carlos Hartley M.D. on 01/26/2020 at 13:59
[2020-01-26 13:47] LABS: Add Manual Diff / Slide Review NO; Basophils Absolute Auto 100 /uL (0-100); Basophils Percent Auto 1.1 % (0-2); Eosinophils Absolute Auto 300 /uL (0-450); Eosinophils Percent Auto 3.6 % (2-4); Hematocrit 40.7 % (36-46); Hemoglobin 13.4 g/dL (12.0-16.0); Lymphocytes Absolute Auto 2500 /uL (1100-4500); Mean Corpuscular HGB Conc 32.8 % (30-36); Mean Corpuscular Hemoglobin 28.6 PG (26-34); Monocytes Absolute Auto 800 /uL (0-900); Monocytes Percent Auto 10.4 % (3-14); Neutrophils Absolute Auto 4300 /uL (1500-7000); Neutrophils Percent Auto 53.9 % (50-75); Platelet Count 223 X10^3/uL (150-400); Red Blood Cell Count 4.67 X10^6/uL (4.0-5.2); Red Cell Distribution Width 13.6 % (11.6-14.8)
[2020-01-26 13:59] LABS: Alanine Aminotransferase 22 IU/L (<35); Albumin 3.8 g/dL (3.5-5.0); Albumin Globulin Ratio 1.1 (1.0-2.8); Alkaline Phosphatase 129 U/L (38-126); Aspartate Aminotransferase 34 IU/L (14-36); BUN Creatinine Ratio 41.2 (6-22); Bilirubin Total 0.4 mg/dL (0.2-1.3); Blood Urea Nitrogen 35 mg/dL (7-17); Calcium 9.4 mg/dL (8.4-10.2); Carbon Dioxide 24 mmol/L (22-32); Chloride 105 mmol/L (98-107); Estimated Glomerular Filt Rate > 60.0 mL/min (>60); Globulin 3.4 g/dL (1.7-4.1); Glucose 191 mg/dL (80-110); HEMOLYSIS < 15 (0-50); Lipase 71 U/L (23-300); Potassium 4.5 mmol/L (3.4-5.1); Sodium 138 mmol/L (137-145); Total Protein 7.2 g/dL (6.3-8.2)
--- NOTE | 2020-01-26 15:05 | DI.MRI.S_ITS ---
PROCEDURE: MR HEAD/BRAIN WO/W CON INDICATIONS: subacute changes on CT TECHNIQUE: Noncontrast axial T1 spin echo, axial T2 fast spin echo, sagittal and axial FLAIR, coronal T2 fast spin echo, axial gradient echo, axial diffusion and ADC through the brain. After the administration of contrast, axial and coronal 3D VIBE or T1 spin echo with fat saturation through the brain. COMPARISON: [facility], CT, CT HEAD/BRAIN W CON, 05/27/2019, 19:54. [facility], CT, CT HEAD/BRAIN WO CON, 01/26/2020, 13:41. FINDINGS: Image quality: Excellent. The ventricular system and cortical sulci demonstrate atrophy, consistent for the patient's stated age. There are areas of increased T2/FLAIR signal intensity within the periventricular and subcortical white matter. There is no acute intra-or extra axial fluid collection. No acute hemorrhage, mass lesion or midline shift. Brainstem is unremarkable. There are no areas of restricted diffusion. Areas of previous lacunar ischemia noted within the right basal ganglia as well as bilateral thalami. Left medial occipital lobe focus of hyperintensity is present without diffusion changes, likely representing late subacute/early chronic ischemia. Areas of hypointensity are present on diffusion trace images suspected to represent artifact. Globes are symmetrical. Sinuses are aerated. Osseous structures are intact. IMPRESSION: 1. No acute intracranial process. No acute ischemia. 2. Moderate atrophy and chronic microvascular ischemic changes. Dictated by: Sue Monroy M.D. on 01/26/2020 at 16:14 Approved by: Sue Monroy M.D. on 01/26/2020 at 16:52
[2020-01-26] MEDS: LORazepam 2 MG/ML INJ 0.5 MG IV (15:24)
--- NOTE | 2020-01-26 16:10 | PC.NURSE ---
provided for patient to have MRI, pt tolerated well.
--- NOTE | 2020-01-26 16:46 | PM.HP.1 ---
History of Present Illness History of Present Illness Date Patient Seen: 01/26/20 Time Patient Seen: 16:46 Chief complaint: fall on Mon, confussion,dizzy, headache Narrative: Patient being seen and evaluated in the emergency department as a walk-in to the womb she recognizes me. She says she is here because she has had a fall and she was confused. She is a fairly reliable historian she knows it is January she knows where she is at knows the year. She and her live on a trailer. Earlier this week patient states she was climbing out of the trailer and fell down 2 stairs. She she injured her head. This was witnessed by her in the was no loss of consciousness. The came into the hospital to be evaluated and work with a weighted in the emergency department went home because of the wait time period guess she has been doing pretty well since then but they became concerned today because he had an episode of confusion. This happened twice. Her got concerned about confusion and brought her back to the emergency room for evaluation. She recognized when I was talking to her that she was confused she says she went into the part of the house and thought it was a bathroom and did not know why. She has really no complaints of headache dizziness lightheadedness fevers chills nausea or vomiting. She says she has general aches and pains everywhere. She is not having any chest pain. She has not had any irregular heartbeats. She has not specifically short of breath or not complaining of any swelling or edema. She says her head hurts a little bit. Workup and evaluation done in the emergency department includes multiple laboratory testing and imaging testing. Patient had a CT scan shows a potential subacute occipital hypotensive lesion consistent with possible subacute infarction. MRI was also done this is visualized as well. There is no specific radiology reading. Because of patient's falls mental status changes advanced age and other medical problems I was called to evaluate the patient. Due to her current status without best to admit her to the hospital for further evaluation and workup. Patient History Medical History Atrial fibrillation (Chronic 09/20/10) Bilateral shoulder pain (Inactive) Bipolar disorder (Chronic) Cardiomyopathy (Chronic) Chicken pox (Resolved) Chronic diarrhea (Chronic 06/10/16) Controlled type 2 diabetes mellitus (Chronic 09/20/10) Diarrhea (Acute) Essential hypertension (Chronic 09/20/10) Fall (Acute) Head contusion (Acute) History of Graves' disease (Chronic) History of placenta previa (Resolved) Irritable bowel syndrome (Acute) Minor head injury without loss of consciousness (Resolved) Neck strain (Acute) Neuropathy of both feet (Chronic) Renal artery stenosis (Chronic 09/20/10) Retinal scar (Chronic) Rheumatoid arthritis (Chronic) Right leg pain (Resolved) Sprain of left shoulder (Inactive) Stroke (Resolved) Systolic congestive heart failure (Chronic 09/20/10) Thyroid nodule (Chronic) Vision disorder (Chronic) Surgical History Anesthesia (Resolved) History of hip replacement (Resolved) History of knee replacement (Resolved) History of partial surgical removal of colon (Resolved 06/10/16) Status post dilation and curettage Family & Social History Social History: household members spouse Safety & Behavioral: Feels Safe in Current Yes Environment Been Physically Hurt or No Threatened By a Person Tobacco & Substance use: Smoking Status Former smoker alcohol intake frequency 0-2 drinks per day Substance Use Type does not use Meds Home Medications and Allergies Home Medications Medication Instructions Recorded Confirmed Type Disabled Parking Permit 1 ea MISCELLANEOUS DIRECTED 08/20/18 01/26/20 History Syringes: 1cc Insulin Syringes #100 each 03/14/19 01/26/20 Rx with Trade furosemide 40 mg tablet See Rx Instructions .ROUTE 03/14/19 01/26/20 Rx .COMPLEX #180 tablet acetaminophen 650 mg PO Q6HR PRN #30 tab 05/31/19 01/26/20 Rx loperamide 2 mg tablet 2 mg PO Q1-2H PRN tab 07/04/19 01/26/20 History losartan 50 mg tablet 25 mg PO DAILY 90 Days #90 tab 07/20/19 01/26/20 Rx escitalopram oxalate 10 mg tablet 10 mg PO .HS #90 tab 08/04/19 01/26/20 Rx carvedilol 6.25 mg tablet 6.25 mg PO BID #180 tab 08/29/19 01/26/20 Rx insulin glargine 100 unit/mL 40 unit SUBCUT DAILY #10 ml 10/10/19 01/26/20 Rx subcutaneous solution levothyroxine 100 mcg tablet 100 mcg PO DAILY #90 tab 11/03/19 01/26/20 Rx potassium chloride 20 mEq 20 meq PO BID #180 tab 11/07/19 01/26/20 Rx tablet,extended release ciprofloxacin HCl 500 mg PO BID #20 tab 12/25/19 01/26/20 Rx dicyclomine 20 mg PO BID PRN #15 tab 12/25/19 01/26/20 Rx metronidazole [Flagyl] 500 mg PO BID #20 tab 12/25/19 01/26/20 Rx spironolactone 25 mg tablet 25 mg PO DAILY #30 tab 12/26/19 01/26/20 Rx Allergies Allergy/AdvReac Type Severity Reaction Status Date / Time egg Allergy Severe weakness Verified 01/26/20 11:48 on the right side of body after vaccine Anesthetics - Amide Type Allergy Unknown Verified 01/26/20 11:48 [ANESTHETICS - AMIDE TYPE] codeine [CODEINE] Allergy Unknown Verified 01/26/20 11:48 lidocaine [From XYLOCAINE] Allergy Unknown WHEN HAD Verified 01/26/20 11:48 TEETH WORKED ON lisinopril [LISINOPRIL] Allergy Unknown Verified 01/26/20 11:48 milk [MILK] Allergy Unknown Verified 01/26/20 11:48 morphine [MORPHINE] Allergy Unknown Verified 01/26/20 11:48 oxycodone [OXYCODONE] Allergy Unknown Verified 01/26/20 11:48 Penicillins [PENICILLINS] Allergy Unknown Verified 01/26/20 11:48 influenza virus vaccine, Allergy weakness Verified 01/26/20 11:48 specific on the right side of body after vaccine Exam Vital Signs (past 8 hours): - 01/26/20 12:28 01/26/20 12:30 01/26/20 12:32 Temperature 99.3 F Pulse Rate 64 61 64 Respiratory Rate 18 Blood Pressure 143/69 H 192/80 H 143/69 H Pulse Oximetry 96 97 97 01/26/20 13:00 01/26/20 13:30 01/26/20 13:31 Temperature Pulse Rate 61 58 L 58 L Respiratory Rate Blood Pressure 160/73 H 178/81 H Pulse Oximetry 97 95 97 01/26/20 14:22 01/26/20 14:30 01/26/20 14:31 Temperature Pulse Rate 58 L 58 L Respiratory Rate Blood Pressure 155/81 H Pulse Oximetry 97 97 98 01/26/20 15:00 01/26/20 15:01 Temperature Pulse Rate 59 L 60 Respiratory Rate 12 11 L Blood Pressure 155/72 H Pulse Oximetry 96 97 Oxygen Delivery Method Room Air Objective Labs Result Diagrams: 01/26/20 13:40 01/26/20 13:40 Labs: Laboratory Results - last 24 hr 01/26/20 01/26/20 13:40 13:40 WBC 8.0 RBC 4.67 Hgb 13.4 Hct 40.7 MCV 87.0 MCH 28.6 MCHC 32.8 RDW 13.6 Plt Count 223 Neut % (Auto) 53.9 Lymph % (Auto) 31.0 [place] % (Auto) 10.4 Eos % (Auto) 3.6 Baso % (Auto) 1.1 Neut # (Auto) 4300 Lymph # (Auto) 2500 [place] # (Auto) 800 Eos # (Auto) 300 Baso # (Auto) 100 Sodium 138 Potassium 4.5 Chloride 105 Carbon Dioxide 24 BUN 35 H Creatinine 0.85 Estimated GFR > 60.0 BUN/Creatinine Ratio 41.2 H Glucose 191 H Calcium 9.4 Total Bilirubin 0.4 AST 34 ALT 22 Alkaline Phosphatase 129 H Total Protein 7.2 Albumin 3.8 Globulin 3.4 Albumin/Globulin Ratio 1.1 Lipase 71 Assessment & Plan Assessment & Plan narrative: Acute versus subacute occipital infarct patient with recent fall and altered mental status changes. Patient currently at this time due to the incident injury is unsafe to go home. Will admit her to the hospital for further evaluation workup. Patient will need an MRI of her brain. Patient will have laboratory testing done including CBC comprehensive metabolic profile protime and INR. Add in a lipid panel as well. Patient have occupational therapy speech therapy and physical therapy. Patient will have close monitoring of her blood pressure. Patient has previously been on a statin medication. And will go ahead and add this back in. Add a lipid panel to her blood testing. Depending on what the MRI of her brain shows. She may need a carotid ultrasound so will go ahead and do that as well. To make sure that she has no carotid artery stenosis. She will be placed on telemetry monitoring she has a history of atrial fibrillation but look like on the monitor in the ER she has multiple PVCs. An EKG will also be done. She will have DVT prophylaxis. She will be placed on an aspirin and will monitor closely her blood pressure. Mental status changes. Consistent with metabolic encephalopathy probably due to her underlying brain injury. In all likelihood this is probably due to her cerebral incident or injury. Will monitor closely in her hospital stay for further decline in her mental status. Systolic congestive heart failure chronic without acute exacerbation. Patient appears euvolemic. She has ejection fraction about 20%. Will place her on a beta-mary RAIZA-inhibitor spironolactone and her low dose of Lasix. Will monitor closely her weight we will not place her on IV fluids at this point. She will be on telemetry monitoring because of her heart failure she has a risk of electrical abnormalities and has a history of atrial fibrillation. Atrial fibrillation intermittent patient has reported history of atrial fibrillation. Certainly could be a cause of her stroke she is not on anticoagulation because of frequent falls and previous gastrointestinal bleeding. Will see what her cardiac monitor shows. Diabetes insulin dependent. Patient will be placed on her home insulin regimen with insulin sliding scale coverage. Hypertension blood pressure is a little bit elevated. Will place her on her beta-mary and ARBE-inhibitor. Will let her blood pressure be a little bit high due to concerns about the cerebral ischemia and then lower as needed. Hypothyroidism. Patient is on thyroid replacement will check a TSH In disposition plan she will be admitted as inpatient. Due to cerebral ischemia and infarct. She all PT OT physical therapy. Will monitor and wait for MRI review results with telemetry monitoring she will have a carotid ultrasound. And will see her mental status changes do over the next few days.
--- NOTE | 2020-01-26 17:09 | DI.US.S_ITS ---
PROCEDURE: US CAROTID DOPPLER BI INDICATIONS: cva TECHNIQUE: Color and pulse Doppler interrogation was performed of both carotid systems, with image documentation and velocity measurements. COMPARISON: [facility], MR, MR HEAD/BRAIN WO/W CON, 01/26/2020, 15:29. FINDINGS: Stenosis calculations are based on SRU (Society of Radiologists in Ultrasound) criteria. Right side: Brachial blood pressure: 155/81 mm Hg. Common carotid artery peak systolic velocity: 62 cm/sec. Internal carotid artery peak systolic velocity: 55 cm/sec. Internal carotid artery end diastolic velocity: 15 cm/sec. External carotid artery peak systolic velocity: 93 cm/sec. ICA/CCA peak systolic ratio: 0.9 Hansen scale imaging description: No significant plaque Percent internal carotid artery stenosis: Less than 50% stenosis. Vertebral artery: Flow direction is antegrade. Left side: Brachial blood pressure: 155/72 mm Hg. Common carotid artery peak systolic velocity: 65 cm/sec. Internal carotid artery peak systolic velocity: 80 cm/sec. Internal carotid artery end diastolic velocity: 23 cm/sec. External carotid artery peak systolic velocity: 81 cm/sec. ICA/CCA peak systolic ratio: 1.23 Hansen scale imaging description: Mild atherosclerotic plaque. Percent internal carotid artery stenosis: Less than 50% stenosis. Vertebral artery: Flow direction is antegrade. IMPRESSION: Less than 50% stenosis in the bilateral ICA. Antegrade flow in the vertebral arteries. Dictated by: Josef Willis M.D. on 01/26/2020 at 17:54 Approved by: Josef Willis M.D. on 01/26/2020 at 17:56
[2020-01-26 17:27] LABS: COVID19 -Nasal RAPID Negative (Negative)
[2020-01-26] MEDS: INSULIN ASPART 100 UNIT/ML INSULN PEN SUBCUT (21:48)
[2020-01-26] MEDS: ATORVASTATIN 10 MG TABLET PO (21:49)
[2020-01-26] MEDS: LOPERAMIDE 2 MG CAPSULE PO (21:49)
[2020-01-26] MEDS: carvediloL 6.25 MG TABLET PO (21:49)
--- NOTE | 2020-01-27 03:15 | PC.NURSE ---
0200: pt alert and oriented. no changes. no weakness. no pain. no chest pain. family at bedside. call light reach.
[2020-01-27 05:55] VITALS: BP 123/44; PULSE 56; RESP 16; TEMP 36.2; O2SAT 95
[2020-01-27 06:14] LABS: Add Manual Diff / Slide Review NO; Basophils Absolute Auto 100 /uL (0-100); Basophils Percent Auto 0.8 % (0-2); Eosinophils Absolute Auto 300 /uL (0-450); Hematocrit 38.9 % (36-46); Hemoglobin 12.9 g/dL (12.0-16.0); Lymphocytes Absolute Auto 2900 /uL (1100-4500); Lymphocytes Percent Auto 34.1 % (25-40); Mean Corpuscular HGB Conc 33.2 % (30-36); Mean Corpuscular Hemoglobin 28.8 PG (26-34); Mean Corpuscular Volume 86.7 fL (80-100); Monocytes Absolute Auto 900 /uL (0-900); Neutrophils Absolute Auto 4400 /uL (1500-7000); Neutrophils Percent Auto 51.1 % (50-75); Platelet Count 212 X10^3/uL (150-400); Red Blood Cell Count 4.48 X10^6/uL (4.0-5.2); Red Cell Distribution Width 13.5 % (11.6-14.8); White Blood Cell Count 8.5 X10^3/uL (4.5-11.0)
[2020-01-27 06:17] LABS: INR 1.1 (0.9-1.3); Prothrombin Time 12.5 SECONDS (10.1-12.7)
[2020-01-27 06:22] LABS: Alanine Aminotransferase 19 IU/L (<35); Albumin 3.6 g/dL (3.5-5.0); Albumin Globulin Ratio 1.2 (1.0-2.8); Alkaline Phosphatase 118 U/L (38-126); Aspartate Aminotransferase 30 IU/L (14-36); BUN Creatinine Ratio 39.3 (6-22); Bilirubin Total 0.5 mg/dL (0.2-1.3); Blood Urea Nitrogen 35 mg/dL (7-17); Calcium 9.6 mg/dL (8.4-10.2); Carbon Dioxide 29 mmol/L (22-32); Chloride 104 mmol/L (98-107); Cholesterol 129 mg/dL (140-199); Estimated Glomerular Filt Rate > 60.0 mL/min (>60); Globulin 3.1 g/dL (1.7-4.1); Glucose 98 mg/dL (80-110); HDL Cholesterol 19 mg/dL (40-60); HEMOLYSIS < 15 (0-50); LDL Cholesterol Calculated 42 mg/dL (<100); Potassium 4.5 mmol/L (3.4-5.1); Sodium 137 mmol/L (137-145); Total Protein 6.7 g/dL (6.3-8.2); Triglycerides 338 mg/dL (35-150)
[2020-01-27 07:29] VITALS: BP 147/69; PULSE 55; RESP 16; TEMP 36.4; O2SAT 97
--- NOTE | 2020-01-27 08:03 | PM.PN.1 ---
Subjective Subjective Date Patient Seen: 01/27/20 Time Patient Seen: 08:04 Interval history: Patient seen this morning for Dr. Singh who is on available Had uneventful evening and morning. Been up to the bathroom with assistance that particular difficulty. Spouse is with her in the room says she appears to be at baseline from a cognitive a mental status standpoint Exam Vital Signs (past 8 hours): - 01/27/20 05:55 01/27/20 07:29 Temperature 97.2 F L 97.5 F L Pulse Rate 56 L 55 L Respiratory Rate 16 16 Blood Pressure 123/44 L 147/69 H Pulse Oximetry 95 97 Oxygen Delivery Method Room Air Oxygen Flow Rate 0 Objective Labs Result Diagrams: 01/27/20 06:05 01/27/20 06:05 Labs: Laboratory Results - last 24 hr 01/26/20 01/26/20 01/26/20 13:40 13:40 16:13 WBC 8.0 RBC 4.67 Hgb 13.4 Hct 40.7 MCV 87.0 MCH 28.6 MCHC 32.8 RDW 13.6 Plt Count 223 Neut % (Auto) 53.9 Lymph % (Auto) 31.0 [place] % (Auto) 10.4 Eos % (Auto) 3.6 Baso % (Auto) 1.1 Neut # (Auto) 4300 Lymph # (Auto) 2500 [place] # (Auto) 800 Eos # (Auto) 300 Baso # (Auto) 100 PT INR Sodium 138 Potassium 4.5 Chloride 105 Carbon Dioxide 24 BUN 35 H Creatinine 0.85 Estimated GFR > 60.0 BUN/Creatinine Ratio 41.2 H Glucose 191 H Calcium 9.4 Total Bilirubin 0.4 AST 34 ALT 22 Alkaline Phosphatase 129 H Total Protein 7.2 Albumin 3.8 Globulin 3.4 Albumin/Globulin Ratio 1.1 Triglycerides Cholesterol LDL Cholesterol, Calc HDL Cholesterol Lipase 71 COVID-19 PCR Negative 01/27/20 01/27/20 01/27/20 06:05 06:05 06:05 WBC 8.5 RBC 4.48 Hgb 12.9 Hct 38.9 MCV 86.7 MCH 28.8 MCHC 33.2 RDW 13.5 Plt Count 212 Neut % (Auto) 51.1 Lymph % (Auto) 34.1 [place] % (Auto) 10.0 Eos % (Auto) 4.0 Baso % (Auto) 0.8 Neut # (Auto) 4400 Lymph # (Auto) 2900 [place] # (Auto) 900 Eos # (Auto) 300 Baso # (Auto) 100 PT 12.5 INR 1.1 Sodium 137 Potassium 4.5 Chloride 104 Carbon Dioxide 29 BUN 35 H Creatinine 0.89 Estimated GFR > 60.0 BUN/Creatinine Ratio 39.3 H Glucose 98 Calcium 9.6 Total Bilirubin 0.5 AST 30 ALT 19 Alkaline Phosphatase 118 Total Protein 6.7 Albumin 3.6 Globulin 3.1 Albumin/Globulin Ratio 1.2 Triglycerides 338 H Cholesterol 129 L LDL Cholesterol, Calc 42 HDL Cholesterol 19 L Lipase COVID-19 PCR Assessment & Plan Assessment & Plan narrative: 1. Possible CVA-MRI done of the brain does not show evidence of an acute infarction. Therefore I would assume that she has not had a CVA and her issues yesterday were related to probably closed head injury and other issues such as her mild cognitive decline and generalized weakness had been ongoing for some time. Ultrasound of the carotids was also unremarkable no evidence of significant obstruction At this point she needs skilled therapy evaluation with PT and OT before being able to be discharged to her prior living environment with her spouse. 2. Chronic congestive heart failure-patient appears to be euvolemic at this time no issues. Continue usual medications as outlined by Dr. Castro 3. Atrial fibrillation-no evidence of atrial fibrillation thus far on telemetry. Continues in sinus rhythm with left bundle branch block 4. Diabetes-Blood sugar control has been adequate thus far. Continue with meds as ordered upon admission 5. Hypertension-continue current meds no changes Overall patient is doing well. She may well be able to be discharged later today Note: Greater than 30 minutes was spent evaluating the patient on the floor, including examining the patient, discussing clinical course with clinical and nursing staff, reviewing clinical course in the computer, preparing documentation and writing orders for continued management of care, discussing status with family as appropriate, reviewing plans for the next 24 hours with both patient/family and nursing staff as appropriate. Quality VTE Deep Vein Thrombosis/Pulmonary Embolism Present on Admission: No
[2020-01-27 08:23] VITALS: BP 147/69; PULSE 67
[2020-01-27] MEDS: FUROSEMIDE 40 MG TABLET PO (08:23)
[2020-01-27] MEDS: ASPIRIN 325 MG TABLET PO (08:23)
[2020-01-27] MEDS: carvediloL 6.25 MG TABLET PO (08:23)
[2020-01-27] MEDS: LOPERAMIDE 2 MG CAPSULE PO (08:23)
[2020-01-27] MEDS: SPIRONOLACTONE 25 MG TABLET PO (08:24)
[2020-01-27] MEDS: LEVOTHYROXINE 100 MCG TABLET PO (08:24)
[2020-01-27] MEDS: SODIUM CHLORIDE 0.9% FLUSH 10 ML IV (08:25)
[2020-01-27] MEDS: ENOXAPARIN 40 MG/0.4 ML SYRINGE SUBCUT (08:25)
[2020-01-27 08:26] VITALS: BP 147/69; PULSE 67
[2020-01-27] MEDS: LOSARTAN 50 MG TABLET 25 MG PO (08:26)
[2020-01-27] MEDS: INSULIN GLARGINE 100 UNIT/ML 3ML PEN 40 UNIT SUBCUT (08:42)
--- NOTE | 2020-01-27 10:41 | OT.IP.EVAL ---
Past Medical History (Last Updated 01/27/20 @ 07:37 by Eduardo Cordoba MD) Atrial fibrillation (Chronic 09/20/10) Bilateral shoulder pain (Inactive) Bipolar disorder (Chronic) Cardiomyopathy (Chronic) Chronic diarrhea (Chronic 06/10/16) Controlled type 2 diabetes mellitus (Chronic 09/20/10) Essential hypertension (Chronic 09/20/10) Head contusion (Resolved) History of Graves' disease (Chronic) History of placenta previa (Resolved) Irritable bowel syndrome (Chronic) Minor head injury without loss of consciousness (Resolved) Neuropathy of both feet (Chronic) Renal artery stenosis (Chronic 09/20/10) Retinal scar (Chronic) Rheumatoid arthritis (Chronic) Right leg pain (Resolved) Sprain of left shoulder (Inactive) Systolic congestive heart failure (Chronic 09/20/10) Thyroid nodule (Chronic) Vision disorder (Chronic) Surgical History (Last Reviewed 01/26/20 @ 16:49 by Live Castro MD) Anesthesia (Resolved) History of hip replacement (Resolved) History of knee replacement (Resolved) History of partial surgical removal of colon (Resolved 06/10/16) Status post dilation and curettage Occupational Therapy Inpatient Evaluation/Re-Eval M1 PT/OT-IP Prior Functional Status Start: 01/27/20 08:29 Freq: NEEDED Status: Active Protocol: Document 01/27/20 13:33 CGR (Rec: 01/27/20 13:53 CGR [email or web address]) Medical Review Prior Functional Status Medical History Reviewed Yes Diet/Fluid Consistency Regular Communication Spouse stated pt is somewhat forgetful at baseline. able to make needs known and follow commands. Mobility and Gait Pt had up to 6 falls within the past year as spouse stated . Pt usually walk around in the house by furniture crusing or FWW sometimes. Uses 4 WW for community walking. Activities of Daily Living and IADL's Dtr lives nearby and assisted pt to shower twice a week. Otherwise, independent for ADLs and spouse assisted in IADLs. Pt also sometimes needs assist with bed mobility and pt's is able to assist . Social History Household Members spouse Living Arrangements RV Number of Floors (Floors) One Floor Number of Stairs To Enter/Railing? 2 steps then 2 more with railing on left. Home Environment High Toilet,Walk in Shower Home Equipment Front Wheel Walker,Four Wheel Walker,Straight Cane,Power Wheelchair/Scooter,Shower Seat without Backrest,Hand Held Shower,Grab Bars Near Toilet, Grab Bars In Shower Employment Status Retired Additional Social History Comment Pt does not drive. M2 OT-IP Current Condition Start: 01/27/20 13:33 Freq: Status: Active Protocol: Document 01/27/20 13:33 CGR (Rec: 01/27/20 13:53 CGR [email or web address]) Occupational Therapy Current Condition Current Condition Evaluation Date 01/27/20 Treatment Diagnosis Fall with confusion. Diagnosis Onset Date 01/26/20 M3 OT- IP Subjective and Pain Start: 01/27/20 13:33 Freq: Status: Active Protocol: Document 01/27/20 13:33 CGR (Rec: 01/27/20 13:53 CGR [email or web address]) OT- Subjective Occupational Therapy Visit Type Type Initial Evaluation Visit Start Time 10:02 Visit Stop Time 10:41 Total Visit Minutes 39 OT Pain Assessment Pain When Pain Assessed At Rest Pain Present Pain Present Pain Reported Location Generalized Intensity 5 Scale Used Numeric (0 - 10) Management Techniques Modification of Treatment,Re- positioning,Timing of Activity with Medications M4 OT- IP ADL's Start: 01/27/20 13:33 Freq: Status: Active Protocol: Document 01/27/20 13:33 CGR (Rec: 01/27/20 13:53 CGR [email or web address]) OT [id number] Comments OT Self-Feeding Comments not meal time OT ADL-Grooming General Evaluation Grooming Ability Standby Assistance Areas Needing Assistance Combing/Brushing Hair,Face Washing Comments OT Grooming Comments standing at sink OT ADL-Oral Care General Eval Oral Care Ability Standby Assistance Comments Oral Care Comments standing at sink OT ADL-Dressing General Eval Lower Body Dressing Ability Standby Assistance Areas Needing Assistance Shoes Comments OT Dressing Comments slip on showes seated EOB and doffed socks. OT ADL-Toileting General Evaluation Toileting Ability Standby Assistance Comments OT Toileting Comments seated on toilet for urination OT ADL-Bathing Comments OT Bathing Comments not performed M5 OT- IP IADL's Start: 01/27/20 13:33 Freq: Status: Active Protocol: Document 01/27/20 13:33 CGR (Rec: 01/27/20 13:53 CGR [email or web address]) OT-Instrumental Activities of Daily Living Deficits IADL Deficits Identified Deficits Home Safety Awareness Awareness of Need for Assistance at Home Decreased Awareness Ability to Problem Solve Emergency Unable to Problem Solve Situations Medication Management Medication Management Caregiver Administers Money Management Money Management Caregiver Provides Assistance Meal Preparation Meal Preparation Caregiver Provides Supervision Ornamental Iron Worker Ornamental Iron Worker Caregiver Provides Assist Driving Driving Comments Pt does not drive. M6 OT- IP Functional Cognition Start: 01/27/20 13:33 Freq: Status: Active Protocol: Document 01/27/20 13:33 CGR (Rec: 01/27/20 13:53 CGR [email or web address]) Cognitive Factors Limiting Selfcare Function Cognitive Ability Level of Alertness Alert,Confusional State Patient Orientation Name,Age,Birthday,Month,Place, Situation Attention Span Ability Capable of Focused Attention, Capable of Sustained Attention Ability to Follow Commands Able to Follow Multi-Step Commands Cognitive Comments Cognitive Assessment Comments Pt with noted hx of cognitive deficit. Per , pt appears to be at her baseline. OT- Vision and Hearing OT- Hearing Assessment OT- Hearing Assessment WFL OT- Vision Assessment Visual Acuity Glasses All The Time Visual Attentiveness WFL Occular Pursuits WFL Visual Convergence WFL Vision Assessment Comments pt wears bifocals. M7 OT- IP Mobility and Balance Start: 01/27/20 13:33 Freq: Status: Active Protocol: Document 01/27/20 13:33 CGR (Rec: 01/27/20 13:53 CGR [email or web address]) OT- Bed Mobility Assessment Rolling Type of Rolling Roll to Left Level of Assistance Minimal Assistance,Bedrails Supine to Sit Supine to Sit Assist Minimal Assistance,Bedrails Scooting Scooting to Edge of Bed Standby Assistance OT-Transfer Assessment Sit to and From Stand Sit to and from Stand Contact Guard Assistance Transfers Transfer Ability Contact Guard Assistance Technique Transfer Destination Bed,Chair,Toilet Transfer Technique Stand Step Pivot Devices Transfer Assistive Devices Gait Belt,Front Wheeled Walker Comments Mobility Comments mobility around the room. OT- Balance Assessment Sitting Balance and Reactions Static Sitting Balance Ability Fair Dynamic Sitting Balance Ability Fair M8 OT- IP Objective Assessments Start: 01/27/20 13:33 Freq: Status: Active Protocol: Document 01/27/20 13:33 CGR (Rec: 01/27/20 13:53 CGR [email or web address]) OT Gross Range of Motion Upper Extremity Range of Motion Assessment Right Impaired ROM Impairments Right shld shows limited fx d/ t pain. OT Strength Upper Extremity Strength Assessment Right Impaired Comments Strength Comments L grossly 4/5, R is grossly 4- /5 but with very limited endurance. OT- Coordination Assessment Upper Extremity Finger to Nose Test Right UE Impaired Finger Tapping Test Right UE Impaired OT-Muscle Tone Assessment Muscle Tone WNL Yes OT Sensation Assessment Edema Edema Absent M9 OT- IP Assessment and Plan Start: 01/27/20 13:33 Freq: Status: Active Protocol: Document 01/27/20 13:33 CGR (Rec: 01/27/20 13:53 CGR [email or web address]) OT Summary Assessment and Plan Potential Rehabilitation Potential Good Analytic Complexity at Evaluation Moderate Summary OT Impairments Pain,Range of Motion,Strength, Balance,Coordination, Functional Cognition, Functional Mobility Progress Towards Goals Progressing Toward Goals,Safe For Discharge Assessment Summary Pt presents as a moderate complexity evaluation s/p fall at home with increased confusion. Pt is likely at her baseline per and pt's assessment. Pt may benefit from continued therapy while hospitalized. Recommend d/c home with . No DME needs at this time. Goals Dressing Goal Independent Toileting Goal Independent Bathing Goal Independent Toilet Transfer Goal Independent Shower Transfer Goal Independent Days to Meet Goals 5 Frequency of Treatment Frequency Of Treatment Once a Day Treatment Plan OT Treatment Plan ADL Training,Functional Cognition Training,Functional Mobility,Patient/Family Education,Discharge Planning Other Treatment Recommendations and Next shower Treatment Focus Discharge Recommendations OT Discharge Recommendations Home with 15/12 Assist Transportation Needs at Discharge Private Vehicle
--- NOTE | 2020-01-27 11:27 | PT.IIE ---
Surgical History (Last Reviewed 01/26/20 @ 16:49 by Live Castro MD) Anesthesia (Resolved) History of hip replacement (Resolved) History of knee replacement (Resolved) History of partial surgical removal of colon (Resolved 06/10/16) Status post dilation and curettage Medical History (Last Updated 01/27/20 @ 07:37 by Eduardo Cordoba MD) Atrial fibrillation (Chronic 09/20/10) Bilateral shoulder pain (Inactive) Bipolar disorder (Chronic) Cardiomyopathy (Chronic) Chronic diarrhea (Chronic 06/10/16) Controlled type 2 diabetes mellitus (Chronic 09/20/10) Essential hypertension (Chronic 09/20/10) Head contusion (Resolved) History of Graves' disease (Chronic) History of placenta previa (Resolved) Irritable bowel syndrome (Chronic) Minor head injury without loss of consciousness (Resolved) Neuropathy of both feet (Chronic) Renal artery stenosis (Chronic 09/20/10) Retinal scar (Chronic) Rheumatoid arthritis (Chronic) Right leg pain (Resolved) Sprain of left shoulder (Inactive) Systolic congestive heart failure (Chronic 09/20/10) Thyroid nodule (Chronic) Vision disorder (Chronic) Physical Therapy Inpatient Evaluation/Re-Eval M1 PT/OT-IP Prior Functional Status Start: 01/27/20 08:29 Freq: NEEDED Status: Active Protocol: Document 01/27/20 11:05 (Rec: 01/27/20 11:27 [id number]) Medical Review Prior Functional Status Medical History Reviewed Yes Diet/Fluid Consistency Regular Communication Spouse stated pt is somewhat forgetful at baseline. able to make needs known and follow commands. Mobility and Gait Pt had up to 6 falls within the past year as spouse stated . Pt usually walk around in the house by furniture crusing or FWW sometimes. Uses 4 WW for community walking. Activities of Daily Living and IADL's Dtr lives nearby and assisted pt to shower twice a week. Otherwise, independent for ADLs and spouse assisted in IADLs. Social History Household Members spouse Living Arrangements Mobile home Number of Floors (Floors) One Floor Number of Stairs To Enter/Railing? 4 ANA with L rail Home Environment High Toilet,Walk in Shower Home Equipment Front Wheel Walker,Four Wheel Walker,Straight Cane,Manual Wheelchair,Shower Seat with Backrest,Hand Held Shower,Grab Bars Near Toilet,Grab Bars In Shower Employment Status Retired Additional Social History Comment Pt lives with her spouse Ryan in a mobile home. They both retired and spouse is very active and independent and able to assist as needed. Pt was hospitalized early May for 5 days then went for SNF rehab. M2 PT-IP Current Condition Start: 01/27/20 08:29 Freq: NEEDED Status: Active Protocol: Document 01/27/20 11:05 (Rec: 01/27/20 11:27 [email or web address]) Physical Therapy Current Condition Current Condition Evaluation Date 01/27/20 Treatment Diagnosis fall on thursday, confusion, VILCHIS, generalized weakness. Onset Date 01/23/20 Weight Bearing Status Weight Bearing Status Weight Bear as Tolerated M3 PT-IP Subjective Start: 01/27/20 08:29 Freq: NEEDED Status: Active Protocol: Document 01/27/20 11:05 (Rec: 01/27/20 11:27 [email or web address]) Subjective Physical Therapy Visit Type Type Initial Evaluation Visit Start Time 09:10 Visit Stop Time 09:39 Total Visit Minutes [address] scan were unremarkable for acute stroke. CHF with EF 20% Number of AIRBRUSH ARTIST TECHNICAL Visits 0 Physical Therapy Visit Comments Patient Comments Im better today but im still weak Patient Goals To regain her strength and return to home. Therapy Pain Assessment Pain Present Pain Present Denied Pain M4 PT-IP Mobility and Gait Start: 01/27/20 08:29 Freq: NEEDED Status: Active Protocol: Document 01/27/20 11:05 (Rec: 01/27/20 11:27 [email or web address]) PT-Bed Mobility Assessment Supine to Sit Supine to Sit Minimal Assistance,1 Person Assistance Scooting Scooting to Edge of Bed Standby Assistance PT-Transfer Assessment Sit to and From Stand Sit to and from Stand Standby Assistance,Use of Upper Extremities Equipment Transfer Assistive Device Gait Belt,Front Wheeled Walker Orthotic/Prosthetic Devices or Brace: No Transfers Transfer Destination Bed,Chair,Toilet Transfer Technique Stand Step Pivot Transfer Ability Level of Assist Contact Guard Assistance,Use of Upper Extremities Comments Mobility Comments Pt was up in bed upon PT arrival. Spouse Ryan at bedside assisted providing social hx since pt was somewhat forgetful. She stated she fell from a w/c at home but in fact she was getting out of her home door. Pt agreed to mobilize with PT and she completed supine to sit with spouse BRICK KILN BURNER on L to pull up. She then sat at EOB by scooting herself forward SBA. She was able to stand up with FWW SBA and walked to bathroom . She was able to stand unsupported for 30 secs to doff her brief off and step pivot transferred to toilet by using grab bar to descend. She then stood up indpeendnetly with grab bar and FWW after voiding. Pt walked to hallway afterwards with SBA and she completed stair climbing as well. She then walked back to her room for a total of 160 ft with FWW and safely got back to chair with proper descend using chair armrests. Pt denied discomfort but some residual weakness. Call light placed within reach. Gait Assessment Gait Gait Assistance Required: Standby Assistance Distance (Feet) 160 Able to Maintain Weight Bearing Status Yes During Gait Assistive Devices Assistive Device Gait Belt,Front Wheeled Walker Orthotic/Prosthetic Devices or Brace: No Gait Deviations General Gait Pattern Decreased Stride Length, Decreased Feet Clearance Factors Limiting Gait Function Factors Limiting Gait Function Decreased Activity Tolerance, Decreased Strength,Poor Balance,Poor Safety Awareness, Respiratory Distress Comments Gait Comments see mobility comments Stair Climbing Assessment Evaluation Level of Assist On Stairs Standby Assistance Devices Stair Climbing Assistive Devices Left Railing Technique/Endurance Stair Climbing Direction Ascend and Descend Stair Climbing Technique Step to Step Number of Steps Climbed 3 Query Text: Stair Climbing Set # Repetitions (reps) 2 Comments Stair Climbing Comments pt completed 3 steps x 2 with L rail. She led with L LE to ascend then positioned her sideway leading with LLE to descend. PT-Balance Assessment Sitting Balance and Reactions Static Sitting Balance Ability Normal Dynamic Sitting Balance Ability Normal Standing Balance and Reactions Static Standing Balance Ability Good Dynamic Standing Balance Ability Good M5 PT-IP Objective Assessments Start: 01/27/20 08:29 Freq: NEEDED Status: Active Protocol: Document 01/27/20 11:05 (Rec: 01/27/20 11:27 [email or web address]) Orientation Orientation/Cognition Level of Alertness Alert Orientation Name,Age,Birthday,Month,Date, Year,Day of Week,Place, Situation Language Function Ability Hard of Hearing Safety Awareness Decreased Safety Awareness Memory Description Short Term Impaired Gross Range of Motion Upper Extremity ROM Assessment Right Impaired Impairments shoulder flexion , abd approx 80 degrees d/t her injection shot from April as pt stated Lower Extremity ROM Assessment Within Functional Limits Strength Upper Extremity Strength Assessment Right Impaired Shoulder 3-/5 Elbow 4/5 Wrist 4/5 Hand 4/5 Lower Extremity Strength Assessment Within Functional Limits Hip 4/5 Knee 4/5 Ankle 4/5 Coordination Assessment Gross Coordination Gross Coordination WNL Assessment Finger to Nose Test Normal Performance Pronation/Supination Test Normal Performance Foot Tapping Test Normal Performance Heel on Harkins Test Normal Performance Coordination Comments increased time taken bilaterally Sensation Assessment Sensation Gross Sensation WNL Light Touch Intact Proprioception (Position) Intact Muscle Tone Muscle Tone WNL Yes Other Assessments Other Other Assessments VOR 1, saccade , pursude, finger opposition =intact pain with cervical active motion, TTP at SCM, cervical extensors. M6 PT-IP Treatment Start: 01/27/20 08:29 Freq: NEEDED Status: Active Protocol: Document 01/27/20 11:05 (Rec: 01/27/20 11:27 [email or web address]) Physical Therapy Treatment Education Education Provided Safety M7 PT-IP Assessment and Plan Start: 01/27/20 08:29 Freq: NEEDED Status: Active Protocol: Document 01/27/20 11:05 (Rec: 01/27/20 11:27 [email or web address]) PT Summary Assessment and Plan Potential Rehabilitation Potential Excellent Status of Condition at Evaluation Stable Summary Progress Towards Goals Safe For Discharge Assessment Summary This is a 79yo female admitted to d/t a recent fall on Thursday with confusion and VILCHIS. Spouse stated she hit her head but MRI and CT scan findings are unremarkable. Upon assessment, there's no noticeable neurological deficits but with some cervical pain with movement and to pressure. Pt possibly suffered from a whiplash related cervical strain during the fall. She overall did fairly well but with weakness. She completed amb x 160 ft with stair climbing which is at baseline mobility. She is safe to d/c home with spouse assistance as needed and recommended outpatient PT for cervical strain/ whiplash injury. Frequency of Treatment Frequency Of Treatment Discharge Recommendations To Nursing Amount of Assist Needed Standby Assistance,1 Person Assist Discharge Recommendations PT Discharge Recommendations Home with Assistance, Outpatient PT Transportation Needs at Discharge Private Vehicle
--- NOTE | 2020-01-27 11:39 | CM.DANOTE ---
Discharge Planning/Care Management DCP: assessment: case received, EMR reviewed, dc to home order noted. Met now with pt and her Ryan. Ryan confirms that he is the caregiver for his , PT and OT have worked with pt and cleared her for the home setting. He says he is comfortable with plan to take her home today and only wonders when the d/c paperwork will be completed. Pt admitted yesterday afternoon to care of PCP: Dr. Castro. Dr. Cordoba is seeing pt today, deemed her medically stable with a d/c once cleared by PT/OT. Payer: [facility] Medicare P: home today, likely in about an hour once paperwork completed. Advanced directive, confirm from FAMILY Start: 01/26/20 17:29 Freq: Q24H Status: Active Protocol: Document 01/27/20 03:31 KLP (Rec: 01/27/20 03:31 KL [id number]) Advance Directive, confirm on record Time 03:31 Person contacted Patient Copy received No CM Discharge Assessment Start: 01/27/20 11:37 Freq: Status: Active Protocol: Document 01/27/20 11:37 ITV (Rec: 01/27/20 11:39 ITV [id number]) Discharge Planning Assessment Advance Directives? Yes Advance Directives on File Yes History Provided By Patient,Medical Record Prior Living Arrangements Mobile home Household Members spouse DME Already Rented / Owned FWW / Walker Comment FWW. 4WW when outside with spouse in the yard. Discharge Plan Home Whiteboard Updated in Patient Room with Yes name and ext. # of Rn Camp Review Status In Process
[2020-01-27 11:45] VITALS: BP 119/62; PULSE 61; RESP 16; TEMP 36.8; O2SAT 97
--- NOTE | 2020-01-27 13:14 | SLP.IPNOTE ---
ST received orders and reviewed chart. This ELDER ASSISTANT spoke with PT, OT, nursing, and care management who all reported that patient?s cognitive deficits appear to be at baseline and no other speech, language, or swallowing deficits were evident. Patient?s also reported that her cognition appeared at baseline. ELDER ASSISTANT spoke to patient and about completing a comprehensive speech-language assessment. Patient?s stated that a comprehensive speech-language assessment would not be beneficial to patient?s care and requested to deny this service. is aware of patient?s CLOF and assists her in safely completing ADLs/IADLs. ELDER ASSISTANT observed patient eating regular texture diet with thin liquids (with & without straw) without any overt s/sx of aspiration. Patient?s speech appeared WFL during conversation. Speech-language evaluation not warranted at this time. Patient is planned to discharge today. Shiela London MS, CF-ELDER ASSISTANT
--- NOTE | 2020-01-27 13:39 | PC.NURSE ---
Patient education given regarding new medication, follow up w/ primary doctor instructions given, s/s of stroke, and fall risk education. Patient and verbalized understanding of instructions. Patient to leave hospital via private vehicle and wheelchair w/ .
== END 2020-01-27 13:41 | disposition home or self-care (01) ==
LOC: ED 15:41 → AC 15:48
PROVIDERS: Admitting Provider Family Medicine; Emergency Provider Nurse Practitioner; PCP Family Medicine; Referring Provider Nurse Practitioner; Visit Provider Family Medicine
DX: R51 Headache (principal); W10.8XXA Fall (on) (from) other stairs and steps, initial encounter; Y92.89 Other specified places as the place of occurrence of the external cause; E11.9 Type 2 diabetes mellitus without complications; I48.91 Unspecified atrial fibrillation; R53.1 Weakness; R41.81 Age-related cognitive decline; I11.0 Hypertensive heart disease with heart failure; Z79.4 Long term (current) use of insulin; I50.22 Chronic systolic (congestive) heart failure; Z11.59 Encounter for screening for other viral diseases
CPT/HCPCS: 36415; 70450; 70553; 72125; 73110; 74177; 80053; 80061; 81003; 82962; 83690; 85025; 85610; 87635; 93005; 93880; 96372; 96374; 97116; 97161; 97166; 97535; 99284; G0378; J1650; J2060; Q9967

== ENCOUNTER → 2020-02-24 09:32 | Outpatient (CLI) | payer MEDICARE, SELFPAY ==
[2019-05-25 05:36] VITALS: PULSE 81; RESP 22; O2SAT 98
[2020-01-26 17:09] VITALS: BMI 25.4
[2020-02-26 09:29] LABS: COVID19 Sendout Not Detected (Not Detect)
== END ==
PROVIDERS: PCP Family Medicine; Visit Provider Physician Assistant
DX: Z11.59 Encounter for screening for other viral diseases (principal)
CPT/HCPCS: 87635

== ENCOUNTER → 2020-02-28 10:48 | Outpatient (CLI) | payer MEDICARE, SELFPAY ==
[2019-05-25 05:36] VITALS: PULSE 81; RESP 22; O2SAT 98
[2020-01-26 17:09] VITALS: BMI 25.4
[2020-02-28 12:41] LABS: Hemoglobin A1C% w Est Avg Glu 6.9 % (4.0-6.0)
== END ==
PROVIDERS: PCP Family Medicine; Referring Provider Family Medicine; Visit Provider Family Medicine
DX: E11.9 Type 2 diabetes mellitus without complications (principal)
CPT/HCPCS: 36415; 83036

== ENCOUNTER → 2020-08-09 11:06 | Outpatient (CLI) | payer MEDICARE, SELFPAY ==
[2019-05-25 05:36] VITALS: PULSE 81; RESP 22; O2SAT 98
[2020-01-26 17:09] VITALS: BMI 25.4
--- NOTE | 2020-08-09 11:07 | DI.RAD.S_ITS ---
PROCEDURE: XR LUMBAR SPINE 2-3V INDICATIONS: low back pain possible compression fx TECHNIQUE: 3 views of the lumbar spine were acquired. COMPARISON: [facility], CT, CT ABDOMEN PELVIS W CON, 12/25/2019, 16:38. [facility], CR, L-SPINE MINIMUM 4 VIEWS, 03/14/2011, 18:36. FINDINGS: Bones: Status post L1 vertebroplasty. No acute fracture identified. Diffuse osteopenia. Multilevel degenerative endplate sclerosis and spurring. Diffuse facet arthropathy. Grade 1 anterolisthesis of L4 on L5 and L5 on S1. Diffuse mild to moderate disc space narrowing throughout the lumbar spine. Soft tissues: Overlying bowel gas pattern is normal. No suspicious soft tissue calcifications. Scattered vascular calcifications seen in the aorta. IMPRESSION: Lumbar spondylosis and status post L1 kyphoplasty. No definite progressive vertebral body height loss since 12/25/19. Dictated by: Kevan Tomlin M.D. on 08/09/2020 at 12:26 Approved by: Kevan Tomlin M.D. on 08/09/2020 at 12:29
--- NOTE | 2020-08-09 11:07 | DI.RAD.S_ITS ---
PROCEDURE: XR PELVIS 1-2V INDICATIONS: low back pain possible compression fx TECHNIQUE: Single view(s) of the pelvis acquired. COMPARISON: [facility], , PELVIS W UNILATERAL HIP RIGHT, 01/11/2014, 9:48. FINDINGS: Bones: Motion degraded examination. Expected postop alignment of right hip arthroplasty. Lower lumbar spondylosis. Severe left hip degenerative joint disease which appears unchanged. Soft tissues: Visualized bowel gas pattern is normal. No suspicious soft tissue calcifications. IMPRESSION: Motion degraded examination. No definite fracture seen radiographically. Dictated by: Kevan Tomlin M.D. on 08/09/2020 at 12:36 Approved by: Kevan Tomlin M.D. on 08/09/2020 at 12:37
== END ==
PROVIDERS: PCP Family Medicine; Referring Provider Family Medicine; Visit Provider Family Medicine
DX: M54.5 Low back pain (principal); M47.816 Spondylosis without myelopathy or radiculopathy, lumbar region; M16.12 Unilateral primary osteoarthritis, left hip; Z96.641 Presence of right artificial hip joint
CPT/HCPCS: 72100; 72170

== ENCOUNTER → 2020-10-02 07:51 | Outpatient (CLI) | payer MEDICARE, SELFPAY ==
[2019-05-25 05:36] VITALS: PULSE 81; RESP 22; O2SAT 98
[2020-01-26 17:09] VITALS: BMI 25.4
[2020-10-02 08:39] LABS: Add Manual Diff / Slide Review NO; Basophils Absolute Auto 100 /uL (0-100); Basophils Percent Auto 0.8 % (0-2); Eosinophils Absolute Auto 300 /uL (0-450); Eosinophils Percent Auto 4.2 % (2-4); Hemoglobin 13.2 g/dL (12.0-16.0); Lymphocytes Absolute Auto 2400 /uL (1100-4500); Lymphocytes Percent Auto 32.1 % (25-40); Mean Corpuscular HGB Conc 32.9 % (30-36); Mean Corpuscular Hemoglobin 28.9 PG (26-34); Mean Corpuscular Volume 87.7 fL (80-100); Monocytes Absolute Auto 700 /uL (0-900); Neutrophils Absolute Auto 4100 /uL (1500-7000); Neutrophils Percent Auto 53.9 % (50-75); Platelet Count 209 X10^3/uL (150-400); Red Blood Cell Count 4.56 X10^6/uL (4.0-5.2); Red Cell Distribution Width 14.2 % (11.6-14.8); White Blood Cell Count 7.6 X10^3/uL (4.5-11.0)
[2020-10-02 08:49] LABS: Alanine Aminotransferase 20 IU/L (<35); Albumin 3.9 g/dL (3.5-5.0); Albumin Globulin Ratio 1.2 (1.0-2.8); Alkaline Phosphatase 145 U/L (38-126); Aspartate Aminotransferase 35 IU/L (14-36); BUN Creatinine Ratio 66.1 (6-22); Bilirubin Total 0.4 mg/dL (0.2-1.3); Blood Urea Nitrogen 74 mg/dL (7-17); Calcium 9.3 mg/dL (8.4-10.2); Carbon Dioxide 22 mmol/L (22-32); Chloride 109 mmol/L (98-107); Estimated Glomerular Filt Rate 46.7 mL/min (>60); Globulin 3.2 g/dL (1.7-4.1); Glucose 95 mg/dL (80-110); HEMOLYSIS < 15 (0-50); Potassium 4.6 mmol/L (3.4-5.1); Sodium 139 mmol/L (137-145); Total Protein 7.1 g/dL (6.3-8.2)
[2020-10-02 09:08] LABS: Hemoglobin A1C% w Est Avg Glu 6.9 % (4.0-6.0)
== END ==
PROVIDERS: PCP Family Medicine; Referring Provider Family Medicine; Visit Provider Family Medicine
DX: E11.9 Type 2 diabetes mellitus without complications (principal)
CPT/HCPCS: 36415; 80053; 83036; 85025

== ENCOUNTER 2020-10-07 18:16 | Observation (INO) | payer MEDICARE, SELFPAY ==
[2019-05-25 05:36] VITALS: PULSE 81; RESP 22; O2SAT 98
[2020-01-26 17:09] VITALS: BMI 25.4
[2020-10-07 18:16] VITALS: BP 180/62; PULSE 36
[2020-10-07 18:20] VITALS: PULSE 35; RESP 16; TEMP 36.7; O2SAT 98; BMI 24.7
--- NOTE | 2020-10-07 18:48 | ED.NAVMDI ---
HPI - Nausea/Vomiting/Diarrhea General Chief complaint: Nausea/Vomiting/Diarrhea Stated complaint: diarrhea, lot of pain left side lower abdomen Time Seen by Provider: 10/07/20 18:31 Source: patient Mode of arrival: Ambulatory Limitations: no limitations History of Present Illness HPI Narrative: Patient is an 79-year-old female who is here for evaluation of multiple episodes of diarrhea and fatigue in lower abdominal discomfort. Upon initial evaluation it appears that patient has had chronic diarrhea for approximately 20 years. Her states that she is ?on a pill ?for that. She has also felt very fatigued and tired. This is been going on for at least the past several weeks if not somewhat longer. She states that she decided to come into the emergency department today to see if we could find out why she is having the chronic diarrhea. Related Data Home Medications Medication Instructions Recorded Confirmed Disabled Parking Permit 1 ea MISCELLANEOUS DIRECTED 08/20/18 10/04/20 Previous Rx's Medication Instructions Recorded acetaminophen 650 mg PO Q6HR PRN #30 tab 05/31/19 losartan 50 mg tablet 25 mg PO DAILY 90 Days #90 tab 07/20/19 escitalopram oxalate 10 mg tablet 10 mg PO .HS #90 tab 08/04/19 carvedilol 6.25 mg tablet 6.25 mg PO BID #180 tab 08/29/19 insulin glargine 100 unit/mL 40 unit SUBCUT DAILY #10 ml 10/10/19 subcutaneous solution levothyroxine 100 mcg tablet 100 mcg PO DAILY #90 tab 11/03/19 potassium chloride 20 mEq 20 meq PO BID #180 tab 11/07/19 tablet,extended release spironolactone 25 mg tablet 25 mg PO DAILY #90 tab 02/07/20 loperamide 2 mg tablet 2 mg PO Q1-2H PRN #60 tab 06/04/20 furosemide 40 mg tablet See Rx Instructions .ROUTE 06/11/20 .COMPLEX #180 tablet insulin syringe-needle U-100 1 mL See Rx Instructions .ROUTE 09/10/20 30 gauge x 1/2 .COMPLEX #100 ea Allergies Allergy/AdvReac Type Severity Reaction Status Date / Time egg Allergy Severe weakness Verified 10/04/20 13:43 on the right side of body after vaccine Anesthetics - Amide Type - Allergy Unknown Verified 10/04/20 13:43 Select A [ANESTHETICS - AMIDE TYPE] codeine [CODEINE] Allergy Unknown Verified 10/04/20 13:43 lidocaine [From XYLOCAINE] Allergy Unknown WHEN HAD Verified 10/04/20 13:43 TEETH WORKED ON lisinopril [LISINOPRIL] Allergy Unknown Verified 10/04/20 13:43 milk [MILK] Allergy Unknown Verified 10/04/20 13:43 morphine [MORPHINE] Allergy Unknown Verified 10/04/20 13:43 oxycodone [OXYCODONE] Allergy Unknown Verified 10/04/20 13:43 Penicillins [PENICILLINS] Allergy Unknown Verified 10/04/20 13:43 influenza virus vaccine, Allergy weakness Verified 10/04/20 13:43 specific on the right side of body after vaccine Review of Systems Constitutional Constitutional: Reports fatigue, Reports lethargy and Reports malaise Eyes Eyes: Reports system reviewed and no additional complaints, except as documented ENT Ears, Nose, Mouth, and Throat: Reports system reviewed and no additional complaints, except as documented, Denies vertigo and Denies dizziness Cardiovascular Cardiovascular: Denies chest pain, Denies syncope, Denies dyspnea and Denies dyspnea on exertion Respiratory Respiratory: Denies cough, Denies dyspnea and Denies dyspnea on exertion Gastrointestinal Gastrointestinal: Reports abdominal pain, Denies melena, Denies change in stool character, Reports diarrhea, Denies nausea and Denies vomiting Genitourinary Genitourinary: Denies dysuria Genitourinary: Denies dysuria Musculoskeletal Musculoskeletal: Reports system reviewed and no additional complaints, except as documented Integumentary/Breasts Skin/Breast: Denies rash Neurologic Neurologic: Denies vertigo, Denies dizziness and Denies syncope Psychiatric Psychiatric: Reports system reviewed and no additional complaints, except as documented Endocrine Endocrine: Reports fatigue Hematologic/Lymphatic On Anticoagulants: No Allergic/Immunologic Allergic/Immunologic: Reports system reviewed and no additional complaints, except as documented Patient History Medical History Atrial fibrillation (09/20/10) Bilateral shoulder pain Bipolar disorder Cardiomyopathy Chronic diarrhea (06/10/16) Cognitive decline Controlled type 2 diabetes mellitus (09/20/10) Essential hypertension (09/20/10) Head contusion History of Graves' disease History of placenta previa Irritable bowel syndrome Minor head injury without loss of consciousness Neuropathy of both feet Renal artery stenosis (09/20/10) Retinal scar Rheumatoid arthritis Right leg pain Sprain of left shoulder Stye Systolic congestive heart failure (09/20/10) Thyroid nodule Vision disorder Surgical History Anesthesia History of hip replacement History of knee replacement History of partial surgical removal of colon (06/10/16) Status post dilation and curettage Social History details: She is living with her in a trailer. She is a [employer] household members: spouse Smoking Status: Former smoker alcohol intake: former Smoking Status: Former smoker alcohol intake frequency: 0-2 drinks per day Substance Use Type: does not use Exam Initial Vital Signs Initial Vital Signs: Vital Signs Pulse Rate 36 L 10/07/20 18:16 Blood Pressure 180/62 H 10/07/20 18:16 Const General: cooperative and comfortable Limitations: mental status not altered HENMT Head: normal to inspection and normocephalic Resp Effort & Inspection: normal respiratory effort Auscultation: clear to auscultation bilaterally Cardio Rate: bradycardic Rhythm: regular rhythm Pulses: radial pulses present GI Inspection: non-distended Palpation: soft Skin Lesions: no lesions Rashes: no rashes Neuro General: patient alert, patient awake and patient oriented x3 Cognition: normal cognition Speech: speech normal Extrem General: capillary refill normal Psych Appearance: grossly normal and well kempt Course Orders Ordered: ED Orders 10/07/20 18:50 Complete Blood Count AUTO DIFF Stat Comprehensive Metabolic Panel Stat Lipase Stat Magnesium Stat Thyroid Stimulating Hormone Stat Troponin & CK Cardiac Panel Stat EKG-12 Lead Stat 10/07/20 19:30 Urine Culture Stat Urine Microscopic Stat 10/07/20 20:31 Consult to Physician Stat Consult to Physician Urgent 10/07/20 20:45 COVID19 - ADMIT (POOLROOM/POOLHALL MANAGER swab/PCR) Stat Discontinued Medications Sodium Chloride (Normal Saline 0.9%) 1,000 mls @ 1,000 mls/hr IV BOLUS ONE Stop: 10/07/20 19:48 Last Infusion: 10/07/20 20:27 Dose: 0 mls/hr Documented by: Admin: 10/07/20 19:04 Dose: 1,000 mls/hr Documented by: BTBRITTANY Vital Signs Vital signs: Vital Signs - 8 hr 10/07/20 18:16 05/16/21 18:20 10/07/20 19:56 Temperature 98.1 F Pulse Rate 36 L 35 L 46 L Respiratory Rate 16 Blood Pressure 180/62 H 168/78 H Pulse Oximetry 98 MDM - Nausea/Vomiting/Diarrhea Lab Data Attestation: I reviewed the patient's lab results. Result diagrams: 10/07/20 18:50 10/07/20 18:50 Labs: Lab Results 10/07/20 10/07/20 10/07/20 Range/Units 18:50 18:50 18:50 WBC 9.9 (4.5-11.0) X10^3/uL RBC 4.73 (4.0-5.2) X10^6/uL Hgb 13.6 (12.0-16.0) g/dL Hct 41.2 (36-46) % MCV 87.0 (80-100) fL MCH 28.7 (26-34) PG MCHC 33.0 (30-36) % RDW 14.6 (11.6-14.8) % Plt Count 221 (150-400) X10^3/uL Neut % (Auto) 52.6 (50-75) % Lymph % (Auto) 33.5 (25-40) % [place] % (Auto) 9.2 (3-14) % Eos % (Auto) 3.6 (2-4) % Baso % (Auto) 1.1 (0-2) % Neut # (Auto) 5200 (5952-5813) /uL Lymph # (Auto) 3300 (6968-0624) /uL [place] # (Auto) 900 (0-900) /uL Eos # (Auto) 400 (0-450) /uL Baso # (Auto) 100 (0-100) /uL Sodium 138 (137-145) mmol/L Potassium 4.5 (3.4-5.1) mmol/L Chloride 110 H (98-107) mmol/L Carbon Dioxide 20 L (22-32) mmol/L BUN 72 H (7-17) mg/dL Creatinine 1.15 H (0.52-1.04) mg/dL Estimated GFR 45.3 L (>60) mL/min BUN/Creatinine Ratio 62.6 H (6-22) Glucose 118 H (80-110) mg/dL Calcium 9.5 (8.4-10.2) mg/dL Magnesium (1.6-2.3) mg/dL Total Bilirubin 0.3 (0.2-1.3) mg/dL AST 31 (14-36) IU/L ALT 19 (<35) IU/L Alkaline Phosphatase 173 H (38-126) U/L Total Creatine Kinase 114 (30-135) U/L CK-MB (CK-2) 2.58 H (<2.37) ng/mL CK-MB (CK-2) Rel Index 2.3 (1.5-5.0) % Troponin I 0.027 (0.01-0.034) ng/mL Total Protein 7.2 (6.3-8.2) g/dL Albumin 3.9 (3.5-5.0) g/dL Globulin 3.3 (1.7-4.1) g/dL Albumin/Globulin Ratio 1.2 (1.0-2.8) Lipase 249 (23-300) U/L TSH 2.08 (0.47-4.68) uIU/mL Urine RBC (0-5/HPF) Urine WBC (0-5/HPF) Ur Squamous Epith Cells (0-5/HPF) Amorphous Sediment Urine Bacteria (None) Urine Mucus (Negative) Ur Culture Indicated? SARS-CoV-2 (PCR) (Negative) 10/07/20 10/07/20 10/07/20 Range/Units 18:50 19:30 20:45 WBC (4.5-11.0) X10^3/uL RBC (4.0-5.2) X10^6/uL Hgb (12.0-16.0) g/dL Hct (36-46) % MCV (80-100) fL MCH (26-34) PG MCHC (30-36) % RDW (11.6-14.8) % Plt Count (150-400) X10^3/uL Neut % (Auto) (50-75) % Lymph % (Auto) (25-40) % [place] % (Auto) (3-14) % Eos % (Auto) (2-4) % Baso % (Auto) (0-2) % Neut # (Auto) (4093-3415) /uL Lymph # (Auto) (4940-6479) /uL [place] # (Auto) (0-900) /uL Eos # (Auto) (0-450) /uL Baso # (Auto) (0-100) /uL Sodium (137-145) mmol/L Potassium (3.4-5.1) mmol/L Chloride (98-107) mmol/L Carbon Dioxide (22-32) mmol/L BUN (7-17) mg/dL Creatinine (0.52-1.04) mg/dL Estimated GFR (>60) mL/min BUN/Creatinine Ratio (6-22) Glucose (80-110) mg/dL Calcium (8.4-10.2) mg/dL Magnesium 2.6 H (1.6-2.3) mg/dL Total Bilirubin (0.2-1.3) mg/dL AST (14-36) IU/L ALT (<35) IU/L Alkaline Phosphatase (38-126) U/L Total Creatine Kinase (30-135) U/L CK-MB (CK-2) (<2.37) ng/mL CK-MB (CK-2) Rel Index (1.5-5.0) % Troponin I (0.01-0.034) ng/mL Total Protein (6.3-8.2) g/dL Albumin (3.5-5.0) g/dL Globulin (1.7-4.1) g/dL Albumin/Globulin Ratio (1.0-2.8) Lipase (23-300) U/L TSH (0.47-4.68) uIU/mL Urine RBC None seen (0-5/HPF) Urine WBC 10-30/hpf H (0-5/HPF) Ur Squamous Epith Cells 0-1 /hpf (0-5/HPF) Amorphous Sediment 1+ Urine Bacteria Many (>30) H (None) Urine Mucus 1+ H (Negative) Ur Culture Indicated? Specimen cultured SARS-CoV-2 (PCR) Negative (Negative) Urine Dip Bedside Urine Glucose Negative Bedside Urine Bilirubin - Negative Bedside Urine Ketone - Negative Urine Specific [place] 1.025 Bedside Urine Occult Blood - Negative Bedside Urine pH 6.0 Bedside Urine Protein - Negative Bedside Urine Urobilinogen - Negative Bedside Urine Nitrite + Positive Bedside Urine Leukocytes - Negative Esterase ECG Data Attestation: I personally reviewed and interpreted this ECG as follows: Prior ECG tracings: not available for review Interpretation: Sinus bradycardia Ventricular rate of 45 Left bundle-branch block QRS duration 170 milliseconds Normal QTC No ST T wave changes MDM Narrative Medical decision making narrative: Her diarrhea and her fatigue are not new. The diarrhea is been going on for years in the fatigue at least the past several weeks if not longer than that. Her labs are unremarkable. During her time here in the emergency department the patient was bradycardic. She was sinus bradycardic with a left bundle-branch block on her EKG. She also had periods of time where she was in bigeminy and also other periods of time where she was in a sinus bradycardia. Does not appear to be a heart block. Patient was hypertensive. Do have some suspicion that her fatigue over the past several weeks/months could be related to her bradycardia. She is on carvedilol. I did discuss Roland with [facility] who recommended admitting the patient for observation and holding the car vein along. I then discussed the case with Dr. Pineda was on-call for the patient's primary doctor and will admit for further evaluation treatment. I did discuss the admission with the patient she expressed understanding agreement. Discharge Plan Departure Admit Date/Time: 10/07/20 20:47 Admit Provider: Live Castro
--- NOTE | 2020-10-07 19:00 | PC.NURSE ---
Patient saw PCP on for annual checkup. States today she had an abnormal amount of diarrhea, and wanted to get checked out. Patient states she fell about one month ago and has not been feeling well since. Patient usually has diarrhea but today had more than normal. Reports feeling generally weak and dizzy with activity. Patient bradycardic in triage. Machine not able to palpate blood pressure. Manual blood pressure of 180/62. Patient A&Ox4, reports some dizziness, denies chest pain or SOB. Patient placed on pacer pads. Provider at bedside.
[2020-10-07 19:02] LABS: Add Manual Diff / Slide Review NO; Basophils Absolute Auto 100 /uL (0-100); Basophils Percent Auto 1.1 % (0-2); Eosinophils Absolute Auto 400 /uL (0-450); Eosinophils Percent Auto 3.6 % (2-4); Hematocrit 41.2 % (36-46); Hemoglobin 13.6 g/dL (12.0-16.0); Lymphocytes Absolute Auto 3300 /uL (1100-4500); Lymphocytes Percent Auto 33.5 % (25-40); Mean Corpuscular Hemoglobin 28.7 PG (26-34); Monocytes Absolute Auto 900 /uL (0-900); Monocytes Percent Auto 9.2 % (3-14); Neutrophils Absolute Auto 5200 /uL (1500-7000); Neutrophils Percent Auto 52.6 % (50-75); Platelet Count 221 X10^3/uL (150-400); Red Blood Cell Count 4.73 X10^6/uL (4.0-5.2); Red Cell Distribution Width 14.6 % (11.6-14.8); White Blood Cell Count 9.9 X10^3/uL (4.5-11.0)
[2020-10-07] MEDS: SODIUM CHLORIDE 0.9% 1,000 ML 1000 ML IV (19:04)
[2020-10-07 19:17] LABS: Alanine Aminotransferase 19 IU/L (<35); Albumin 3.9 g/dL (3.5-5.0); Albumin Globulin Ratio 1.2 (1.0-2.8); Alkaline Phosphatase 173 U/L (38-126); Aspartate Aminotransferase 31 IU/L (14-36); BUN Creatinine Ratio 62.6 (6-22); Bilirubin Total 0.3 mg/dL (0.2-1.3); Blood Urea Nitrogen 72 mg/dL (7-17); Calcium 9.5 mg/dL (8.4-10.2); Carbon Dioxide 20 mmol/L (22-32); Chloride 110 mmol/L (98-107); Creatine Kinase 114 U/L (30-135); Estimated Glomerular Filt Rate 45.3 mL/min (>60); Globulin 3.3 g/dL (1.7-4.1); Glucose 118 mg/dL (80-110); HEMOLYSIS < 15 (0-50); Lipase 249 U/L (23-300); Potassium 4.5 mmol/L (3.4-5.1); Sodium 138 mmol/L (137-145); Total Protein 7.2 g/dL (6.3-8.2)
[2020-10-07 19:28] LABS: Troponin I 0.027 ng/mL (0.01-0.034)
[2020-10-07 19:32] LABS: CKMB % Relative Index 2.3 % (1.5-5.0); Creatine Kinase MB 2.58 ng/mL (<2.37)
[2020-10-07 19:48] LABS: Thyroid Stimulating Hormone 2.08 uIU/mL (0.47-4.68)
[2020-10-07 19:48] LABS: RBC Urine None Seen (0-5/HPF)
[2020-10-07 19:56] VITALS: BP 168/78; PULSE 46
[2020-10-07 19:57] LABS: Amorphous Sediment Urine 1+; Bacteria Urine Many (>30); Culture Indicated Urine Specimen Cultured; Mucus Urine 1+ (Negative); Squamous Epithelial Cell Urine 0-1 /HPF (0-5/HPF); WBC Urine 10-30/HPF (0-5/HPF)
[2020-10-07 20:42] LABS: Magnesium 2.6 mg/dL (1.6-2.3)
[2020-10-07 20:55] VITALS: BMI 26.3
[2020-10-07 21:45] VITALS: BP 179/91; PULSE 43; RESP 16; TEMP 36.2
[2020-10-07 21:46] LABS: COVID19 - ADMIT (NP swab/PCR) Negative (Negative)
--- NOTE | 2020-10-07 22:17 | P.HP_ITS ---
History of Present Illness History of Present Illness Date Patient Seen: 10/07/20 Time Patient Seen: 22:20 Date of Onset of Symptoms: 09/24/20 Chief complaint: diarrhea, lot of pain left side lower abdomen Narrative: This is a very pleasant 79-year-old patient of Dr. cerda. She is a difficult historian in terms of specifics and timing. History of detained from the ER physician while her is present and then the patient in the room. She really has a while had a 1 year history of severe fatigue and diarrhea. She came to the ER today because she was just progressively worsening and had 3 large diarrheal stools today. She also has been so tired that she will do start doing the dishes and get care home through this done and then will have to go lay in bed. She has been falling has had a lot of falls though no recent fall and she has had lightheadedness and dizziness associated with these falls. She was seen in the clinic on for similar symptoms and feels that her symptoms have worsened. She is not having any nausea or vomiting she has not had noticing any blood in stool she is not having any fever. She has not any chest pain. She is not having any shortness of breath. Past medical history: 1. AFib not on chronic anticoagulation 2. Bipolar disorder 3. Renal artery stenosis 4. Hypertension 5. History of Graves disease now with hypothyroidism 6. Congestive heart failure, systolic with history of cardiomyopathy 7. Chronic diarrhea 8. Peripheral neuropathy 9. Type 2 diabetes on insulin 10. Rheumatoid arthritis 11. Dementia Medications Lasix 40 mg, insulin she is on Lantus 40 units in the morning, lo sartan 25 mg daily, carvedilol 6.25 mg twice daily, Levoxyl 100 mcg daily, spironolactone 25 mg daily, potassium 20 mEq a day , escitalopram 10 mg daily Allergies she has multiple drug allergies Past surgical history total hip replacement, left total knee replacement, colectomy and partial in May of 2016 Healthier to behavior she is a former smoker but quit over 50 years ago She does not drink alcohol never has and does not use illicit drugs Family history: Mom had bipolar disorder Dad from kidney failure Daughter with bipolar disorder Social history. Patient is and lives with her . She is a practicing [employer]. She has 5 children, 4 daughters and 1 son Patient History Medical History Atrial fibrillation (09/20/10) Bilateral shoulder pain Bipolar disorder Cardiomyopathy Chronic diarrhea (06/10/16) Cognitive decline Controlled type 2 diabetes mellitus (09/20/10) Essential hypertension (09/20/10) Head contusion History of Graves' disease History of placenta previa Irritable bowel syndrome Minor head injury without loss of consciousness Neuropathy of both feet Renal artery stenosis (09/20/10) Retinal scar Rheumatoid arthritis Right leg pain Sprain of left shoulder Stye Systolic congestive heart failure (09/20/10) Thyroid nodule Vision disorder Surgical History Anesthesia History of hip replacement History of knee replacement History of partial surgical removal of colon (06/10/16) Status post dilation and curettage Family & Social History Social History: household members spouse Safety & Behavioral: Feels Safe in Current Yes Environment Been Physically Hurt or No Threatened By a Person Tobacco & Substance use: Smoking Status Former smoker alcohol intake former alcohol intake frequency 0-2 drinks per day Substance Use Type does not use Meds Home Medications and Allergies Home Medications Medication Instructions Recorded Confirmed Type Disabled Parking Permit 1 ea MISCELLANEOUS DIRECTED 08/20/18 10/04/20 History acetaminophen 650 mg PO Q6HR PRN #30 tab 05/31/19 10/04/20 Rx losartan 50 mg tablet 25 mg PO DAILY 90 Days #90 tab 07/20/19 10/04/20 Rx escitalopram oxalate 10 mg tablet 10 mg PO .HS #90 tab 08/04/19 10/04/20 Rx carvedilol 6.25 mg tablet 6.25 mg PO BID #180 tab 08/29/19 10/04/20 Rx insulin glargine 100 unit/mL 40 unit SUBCUT DAILY #10 ml 10/10/19 10/04/20 Rx subcutaneous solution levothyroxine 100 mcg tablet 100 mcg PO DAILY #90 tab 11/03/19 10/04/20 Rx potassium chloride 20 mEq 20 meq PO BID #180 tab 11/07/19 10/04/20 Rx tablet,extended release spironolactone 25 mg tablet 25 mg PO DAILY #90 tab 02/07/20 10/04/20 Rx loperamide 2 mg tablet 2 mg PO Q1-2H PRN #60 tab 06/04/20 10/04/20 Rx furosemide 40 mg tablet See Rx Instructions .ROUTE 06/11/20 10/04/20 Rx .COMPLEX #180 tablet insulin syringe-needle U-100 1 mL See Rx Instructions .ROUTE 09/10/20 10/04/20 Rx 30 gauge x 1/2 .COMPLEX #100 ea Allergies Allergy/AdvReac Type Severity Reaction Status Date / Time egg Allergy Severe weakness Verified 10/04/20 13:43 on the right side of body after vaccine Anesthetics - Amide Type - Allergy Unknown Verified 10/04/20 13:43 Select A [ANESTHETICS - AMIDE TYPE] codeine [CODEINE] Allergy Unknown Verified 10/04/20 13:43 lidocaine [From XYLOCAINE] Allergy Unknown WHEN HAD Verified 10/04/20 13:43 TEETH WORKED ON lisinopril [LISINOPRIL] Allergy Unknown Verified 10/04/20 13:43 milk [MILK] Allergy Unknown Verified 10/04/20 13:43 morphine [MORPHINE] Allergy Unknown Verified 10/04/20 13:43 oxycodone [OXYCODONE] Allergy Unknown Verified 10/04/20 13:43 Penicillins [PENICILLINS] Allergy Unknown Verified 10/04/20 13:43 influenza virus vaccine, Allergy weakness Verified 10/04/20 13:43 specific on the right side of body after vaccine Review of Systems Review of Systems Narrative: Negative other than HPI Exam Vital Signs (past 8 hours): - 10/07/20 18:16 10/07/20 18:20 10/07/20 19:56 Temperature 98.1 F Pulse Rate 36 L 35 L 46 L Respiratory Rate 16 Blood Pressure 180/62 H 168/78 H Pulse Oximetry 98 10/07/20 21:45 Temperature 97.2 F L Pulse Rate 43 L Respiratory Rate 16 Blood Pressure 179/91 H Pulse Oximetry Oxygen Delivery Method Room Air Narrative Exam Narrative: This is a very pleasant and slightly confused patient is alert and oriented no apparent distress She is lying comfortably in hospital bread and vital signs are stable except for blood pressure is slightly elevated and heart rate is ranging in the 40s to 60s and she is completely asymptomatic HEENT is unremarkable Neck: Supple without adenopathy thyromegaly, jugular venous distention or bruit Chest: Clear to auscultation without wheezes rhonchi or crackles Cor: Regular rhythm with bradycardia and distant S1-S2 Abdomen positive bowel sounds, soft, tender left lower quadrant Extremities: No edema, pulses intact Neurologic exam is nonfocal Cranial nerves 2-12 are grossly intact and DTRs are intact and toes are downgoing plantar stimulation and bilateral upper and lower extremities with strength 5/5 all large muscle groups She has lots of scratches on her lower extremities but no definitive rash Objective Labs Result Diagrams: 10/07/20 18:50 10/07/20 18:50 Labs: Laboratory Results - last 24 hr 10/07/20 10/07/20 10/07/20 18:50 18:50 18:50 WBC 9.9 RBC 4.73 Hgb 13.6 Hct 41.2 MCV 87.0 MCH 28.7 MCHC 33.0 RDW 14.6 Plt Count 221 Neut % (Auto) 52.6 Lymph % (Auto) 33.5 [place] % (Auto) 9.2 Eos % (Auto) 3.6 Baso % (Auto) 1.1 Neut # (Auto) 5200 Lymph # (Auto) 3300 [place] # (Auto) 900 Eos # (Auto) 400 Baso # (Auto) 100 Sodium 138 Potassium 4.5 Chloride 110 H Carbon Dioxide 20 L BUN 72 H Creatinine 1.15 H Estimated GFR 45.3 L BUN/Creatinine Ratio 62.6 H Glucose 118 H Calcium 9.5 Magnesium Total Bilirubin 0.3 AST 31 ALT 19 Alkaline Phosphatase 173 H Total Creatine Kinase 114 CK-MB (CK-2) 2.58 H CK-MB (CK-2) Rel Index 2.3 Troponin I 0.027 Total Protein 7.2 Albumin 3.9 Globulin 3.3 Albumin/Globulin Ratio 1.2 Lipase 249 TSH 2.08 Urine RBC Urine WBC Ur Squamous Epith Cells Amorphous Sediment Urine Bacteria Urine Mucus Ur Culture Indicated? SARS-CoV-2 (PCR) 10/07/20 10/07/20 10/07/20 18:50 19:30 20:45 WBC RBC Hgb Hct MCV MCH MCHC RDW Plt Count Neut % (Auto) Lymph % (Auto) [place] % (Auto) Eos % (Auto) Baso % (Auto) Neut # (Auto) Lymph # (Auto) [place] # (Auto) Eos # (Auto) Baso # (Auto) Sodium Potassium Chloride Carbon Dioxide BUN Creatinine Estimated GFR BUN/Creatinine Ratio Glucose Calcium Magnesium 2.6 H Total Bilirubin AST ALT Alkaline Phosphatase Total Creatine Kinase CK-MB (CK-2) CK-MB (CK-2) Rel Index Troponin I Total Protein Albumin Globulin Albumin/Globulin Ratio Lipase TSH Urine RBC None seen Urine WBC 10-30/hpf H Ur Squamous Epith Cells 0-1 /hpf Amorphous Sediment 1+ Urine Bacteria Many (>30) H Urine Mucus 1+ H Ur Culture Indicated? Specimen cultured SARS-CoV-2 (PCR) Negative Assessment & Plan Assessment & Plan narrative: 79-year-old female admitted for bradycardia Assessment 1. Bradycardia. It is unclear if this is the etiology of her fatigue. The case was discussed with Dr. Watkins who was on-call for patient's networks computer consultant at [facility]. He recommended admitting her overnight for observation and stopping the carvedilol. This was done. She will be monitored on telemetry. We will recheck Mag in a.m. as this was slightly high today. Her potassium was good. Will recheck this in the a.m.. Will do an echo if that has not been done recently. Initial CK and troponin negative. Will repeat in a.m.. Assessment 2. Chronic diarrhea with left lower quadrant pain. Plan: We will re-evaluate in the morning with labs. Consider imaging and stool studies depending if these have been done and depending how patient does clinically Assessment 3. Urine suggestive of infection Plan: Culture pending Assessment 4. Type 2 diabetes on Lantus Plan: Continue the same CBG q.a.c. and q.h.s. and sliding scale insulin Assessment 5. Hypothyroidism TSH is normal today. Plan continue with same of ox Assessment 6. Hypertension not well controlled Plan: Will continue losartan. Will continue spironolactone and Lasix and will reassess tomorrow Plan: Assessment 7. Hypokalemia Plan: Continue on potassium supplement daily patient Code status is DNR
--- NOTE | 2020-10-07 22:30 | DI.ECHO.S_ITS ---
[facility] +---------+ : : [address] : : : : [address] : : : : [id number] : : : : Phone: [phone]---------+ Echocardiogram Report + + :Name: ABRAN BETANCOURT Study Date: 10/08/2020 Height: 63 in : :[facility] ReadingLocation: Weight: 148 lb : : Gender: Female BSA: 1.7 m2 : :: 1940 Age: 79 yrs BP: 122/55 mmHg: :Reason For Study: BRADYCARDIA : :Ordering Physician: ASHLEY, : :CATRACHITA Performed By: Shiela Greene : :Referring: CATRACHITA RAMIREZ : + + Interpretation Summary The patient was in sinus bradycardia with heart rates between 41-58 bpm during the exam. The patient had a bundle branch block rhythm during the exam. The patient had frequent PVCs during the exam. The left ventricle is normal in size and wall thickness. There is a severe dyssynchronous contraction pattern, consistent with a conduction abnormality. The ejection fraction is estimated to be 40-45%. The right ventricle is normal in size and function. The aortic valve is not well visualized. There is mild aortic stenosis. The peak aortic velocity is 2.03 m/sec. The aortic valve mean gradient is 9 mmHg. The calculated aortic valve area is 1.5 cm2. Procedure: A two-dimensional transthoracic echocardiogram with color flow and Doppler was performed in limited views only. The study quality was technically difficult. A contrast injection of Definity was performed to improve assessment of LV function. PATIENT HAD SHOOTING BACK PAIN AFTER THE USE OF DEFINITY. The heart rate ranged between 41-58 bpm during the study. The patient was in sinus bradycardia with heart rates between 41-58 bpm during the exam. The patient had a bundle branch block rhythm during the exam. The patient had frequent PVCs during the exam. Left Ventricle: The left ventricle is normal in size and wall thickness. There is no thrombus. The ejection fraction is estimated to be 40-45%. There is a severe dyssynchronous contraction pattern, consistent with a conduction abnormality. MV E/A: 0.60 Med Peak E' Oneil: 3.9 cm/sec E/E' med: 24.2. Right Ventricle: The right ventricle is normal in size and function. Atria: The left atrium is mildly dilated. Right atrial size is normal. There is no Doppler evidence for an interatrial shunt. Mitral Valve: There is mild to moderate mitral annular calcification. No significant mitral valve stenosis. There is trace mitral regurgitation. Aortic Valve: The aortic valve is not well visualized. There is mild aortic valve sclerosis. There is mild aortic stenosis. The peak aortic velocity is 2.03 m/sec. The aortic valve mean gradient is 9 mmHg. The calculated aortic valve area is 1.5 cm2. There is no hemodynamically significant valvular aortic stenosis. No aortic regurgitation is present. Tricuspid Valve: The tricuspid valve is not well visualized, but is grossly normal. There is mild tricuspid regurgitation. Pulmonary artery pressures cannot be estimated because of the lack of a measurable TR jet velocity. Pulmonic Valve: The pulmonic valve is not well visualized. Great Vessels: The aortic root is normal size. The dimensions of the ascending aorta are normal. The IVC is of normal diameter and collapses greater than 50% with a sniff. This suggests a low right atrial pressure of 3 mm Hg. Pericardium/ Pleura There is no pericardial effusion. There is no pleural effusion. MMode/2D Measurements & Calculations LVIDd: 4.8 cm LVOT diam: 1.9 cm LVIDs: 3.1 cm Ao root diam: 2.8 cm FS: 34.7 % asc Aorta Diam: 3.0 cm IVSd: 1.00 cm LVPWd: 0.92 cm LV garcia. diameter/BSA (cm/m^2): 2.8 LV sys. diameter/BSA (cm/m^2): 1.8 LA A2 area: 23.0 cm2 RA long axis: 4.8 cm LA A4 area: 15.0 cm2 RA area: 17.7 cm2 LA length (vol): 4.6 cm RA vol: 55.7 ml LA vol: 63.7 ml RA : 32.8 ml/m2 LA vol index: 37.4 ml/m2 IVC diam: 1.4 cm RVD1 (basal): 4.0 cm TAPSE: 2.3 cm Doppler Measurements & Calculations Ao V2 max: 202.7 cm/sec LVOT Max Oneil: 109.8 cm/sec Ao V2 mean: 140.7 cm/sec LV V1 max P.8 mmHg Ao max P.4 mmHg LV V1 VTI: 27.0 cm Ao mean P.8 mmHg WALDO(I,D): 1.5 cm2 Ao V2 VTI: 50.0 cm WALDO(V,D): 1.5 cm2 sev ratio: 0.54 WALDO indexed to BSA (cm^2/m^2): 0.90 MV E max oneil: 94.2 cm/sec PA pr(Accel): 33.3 mmHg MV A max oenil: 156.2 cm/sec MV E/A: 0.60 Med Peak E' Oneil: 3.9 cm/sec E/E' med: 24.2 Lat Peak E' Oneil: 6.1 cm/sec E/E' lat: 15.4 E/e' average: 19.8 MV dec time: 0.39 sec SV(LVOT): 76.8 ml Reading Physician:03:17 PM
[2020-10-07] MEDS: LORazepam 0.5 MG TABLET PO (22:56)
[2020-10-07] MEDS: ACETAMINOPHEN 325 MG TABLET 650 MG PO (22:56)
[2020-10-08] VITALS (9 sets, daily range): BP systolic 122–178; BP diastolic 55–82; PULSE 35–97; RESP 15–23; TEMP 35.7–36.6; O2SAT 93–99
[2020-10-08 04:50] LABS: Add Manual Diff / Slide Review NO; Basophils Absolute Auto 100 /uL (0-100); Basophils Percent Auto 0.8 % (0-2); Eosinophils Absolute Auto 300 /uL (0-450); Eosinophils Percent Auto 4.2 % (2-4); Hematocrit 37.3 % (36-46); Hemoglobin 12.3 g/dL (12.0-16.0); Lymphocytes Absolute Auto 2600 /uL (1100-4500); Mean Corpuscular Hemoglobin 28.6 PG (26-34); Mean Corpuscular Volume 86.8 fL (80-100); Monocytes Absolute Auto 700 /uL (0-900); Monocytes Percent Auto 9.1 % (3-14); Neutrophils Absolute Auto 4100 /uL (1500-7000); Neutrophils Percent Auto 52.9 % (50-75); Platelet Count 196 X10^3/uL (150-400); Red Cell Distribution Width 14.1 % (11.6-14.8); White Blood Cell Count 7.8 X10^3/uL (4.5-11.0)
[2020-10-08 04:54] LABS: Creatine Kinase 80 U/L (30-135)
[2020-10-08 05:07] LABS: Troponin I 0.045 ng/mL (0.01-0.034)
[2020-10-08 05:18] LABS: Alanine Aminotransferase 15 IU/L (<35); Albumin 3.2 g/dL (3.5-5.0); Albumin Globulin Ratio 1.1 (1.0-2.8); Alkaline Phosphatase 132 U/L (38-126); Aspartate Aminotransferase 28 IU/L (14-36); BUN Creatinine Ratio 58.1 (6-22); Bilirubin Total 0.3 mg/dL (0.2-1.3); Blood Urea Nitrogen 61 mg/dL (7-17); Calcium 9.3 mg/dL (8.4-10.2); Carbon Dioxide 20 mmol/L (22-32); Chloride 116 mmol/L (98-107); Estimated Glomerular Filt Rate 50.3 mL/min (>60); Glucose 104 mg/dL (80-110); HEMOLYSIS < 15 (0-50); Potassium 4.2 mmol/L (3.4-5.1); Sodium 139 mmol/L (137-145); Total Protein 6.2 g/dL (6.3-8.2)
[2020-10-08] MEDS: LEVOTHYROXINE 100 MCG TABLET PO (05:46)
--- NOTE | 2020-10-08 06:40 | PC.NURSE ---
Boilermaker Fitter Note-Patient slept throughout the night after receiving Tylenol and PO Ativan. Her came to visit her for about 1 hour, which calmed her agitation and anxiety, patient has dementia, is oriented to person and sometimes place. SB, 1st degree AVB, BBB, frequent PVCs, and PACs, rate goes as low as 25 briefly, stays in 40s mostly, denies dizziness when OOB to BSC, BP stable, see vital trends, MD aware of low HR.
--- NOTE | 2020-10-08 08:06 | P.PN_ITS ---
Subjective Subjective Date Patient Seen: 10/08/20 Time Patient Seen: 08:06 Interval history: Patient seen and evaluated this morning resting comfortably. A guess had some initial confusion and some anger last night after being admitted the hospital that the since come down. Patient does have some dementia which has been progressing over the last few years. Patient complains of still feeling quite weak this morning which is been an ongoing complaint for her for few years. She has also had some chronic diarrhea. Was taking a significant amount of magnesium supplementation at home this is since been stopped. She says she is just feeling weak. She does recognize me. She is able to tell me what we talked about in our office visit when we saw her a few days ago. Overnight. Patient's heart rate has been into the mid to low 40s. No significant pauses. Frequent PVCs. Exam Vital Signs (past 8 hours): - 10/08/20 01:07 10/08/20 02:08 10/08/20 05:06 Temperature 97.3 F L 97.8 F Pulse Rate 97 H 41 L Respiratory Rate 15 22 Blood Pressure 122/55 L 151/67 H 143/67 H Pulse Oximetry 93 98 Oxygen Delivery Method Room Air Oxygen Flow Rate 0 Narrative Exam Narrative: Gen.: She is alert oriented to person recognizes me know she is in the hospital. Unsure of date and time HEENT: Pupils equal round and reactive or mucosa is moist neck is supple Cardio: S1-S2 systolic murmur present intermittent irregular rhythm Respiratory: Lungs are clear no wheezes or crackles Abdomen: Soft nontender no rebound or guarding no liver spleen enlargement no appreciable hernias Extremities: Full range of motion no appreciable weakness no cyanosis or edema. Neurologic: Grossly intact. Objective Labs Result Diagrams: 10/08/20 04:12 10/08/20 04:12 Labs: Laboratory Results - last 24 hr 10/07/20 10/07/20 10/07/20 18:50 18:50 18:50 WBC 9.9 RBC 4.73 Hgb 13.6 Hct 41.2 MCV 87.0 MCH 28.7 MCHC 33.0 RDW 14.6 Plt Count 221 Neut % (Auto) 52.6 Lymph % (Auto) 33.5 [place] % (Auto) 9.2 Eos % (Auto) 3.6 Baso % (Auto) 1.1 Neut # (Auto) 5200 Lymph # (Auto) 3300 [place] # (Auto) 900 Eos # (Auto) 400 Baso # (Auto) 100 Sodium 138 Potassium 4.5 Chloride 110 H Carbon Dioxide 20 L BUN 72 H Creatinine 1.15 H Estimated GFR 45.3 L BUN/Creatinine Ratio 62.6 H Glucose 118 H Calcium 9.5 Magnesium Total Bilirubin 0.3 AST 31 ALT 19 Alkaline Phosphatase 173 H Total Creatine Kinase 114 CK-MB (CK-2) 2.58 H CK-MB (CK-2) Rel Index 2.3 Troponin I 0.027 Total Protein 7.2 Albumin 3.9 Globulin 3.3 Albumin/Globulin Ratio 1.2 Lipase 249 TSH 2.08 Urine RBC Urine WBC Ur Squamous Epith Cells Amorphous Sediment Urine Bacteria Urine Mucus Ur Culture Indicated? Nasal Screen MRSA (PCR) SARS-CoV-2 (PCR) 10/07/20 10/07/20 10/07/20 18:50 19:30 20:45 WBC RBC Hgb Hct MCV MCH MCHC RDW Plt Count Neut % (Auto) Lymph % (Auto) [place] % (Auto) Eos % (Auto) Baso % (Auto) Neut # (Auto) Lymph # (Auto) [place] # (Auto) Eos # (Auto) Baso # (Auto) Sodium Potassium Chloride Carbon Dioxide BUN Creatinine Estimated GFR BUN/Creatinine Ratio Glucose Calcium Magnesium 2.6 H Total Bilirubin AST ALT Alkaline Phosphatase Total Creatine Kinase CK-MB (CK-2) CK-MB (CK-2) Rel Index Troponin I Total Protein Albumin Globulin Albumin/Globulin Ratio Lipase TSH Urine RBC None seen Urine WBC 10-30/hpf H Ur Squamous Epith Cells 0-1 /hpf Amorphous Sediment 1+ Urine Bacteria Many (>30) H Urine Mucus 1+ H Ur Culture Indicated? Specimen cultured Nasal Screen MRSA (PCR) SARS-CoV-2 (PCR) Negative 10/07/20 10/08/20 10/08/20 21:45 04:12 04:12 WBC 7.8 RBC 4.30 Hgb 12.3 Hct 37.3 MCV 86.8 MCH 28.6 MCHC 33.0 RDW 14.1 Plt Count 196 Neut % (Auto) 52.9 Lymph % (Auto) 33.0 [place] % (Auto) 9.1 Eos % (Auto) 4.2 H Baso % (Auto) 0.8 Neut # (Auto) 4100 Lymph # (Auto) 2600 [place] # (Auto) 700 Eos # (Auto) 300 Baso # (Auto) 100 Sodium Potassium Chloride Carbon Dioxide BUN Creatinine Estimated GFR BUN/Creatinine Ratio Glucose Calcium Magnesium Total Bilirubin AST ALT Alkaline Phosphatase Total Creatine Kinase 80 CK-MB (CK-2) TNP CK-MB (CK-2) Rel Index TNP Troponin I 0.045 H Total Protein Albumin Globulin Albumin/Globulin Ratio Lipase TSH Urine RBC Urine WBC Ur Squamous Epith Cells Amorphous Sediment Urine Bacteria Urine Mucus Ur Culture Indicated? Nasal Screen MRSA (PCR) Negative for mrsa SARS-CoV-2 (PCR) 10/08/20 04:12 WBC RBC Hgb Hct MCV MCH MCHC RDW Plt Count Neut % (Auto) Lymph % (Auto) [place] % (Auto) Eos % (Auto) Baso % (Auto) Neut # (Auto) Lymph # (Auto) [place] # (Auto) Eos # (Auto) Baso # (Auto) Sodium 139 Potassium 4.2 Chloride 116 H Carbon Dioxide 20 L BUN 61 H Creatinine 1.05 H Estimated GFR 50.3 L BUN/Creatinine Ratio 58.1 H Glucose 104 Calcium 9.3 Magnesium Total Bilirubin 0.3 AST 28 ALT 15 Alkaline Phosphatase 132 H Total Creatine Kinase CK-MB (CK-2) CK-MB (CK-2) Rel Index Troponin I Total Protein 6.2 L Albumin 3.2 L Globulin 3.0 Albumin/Globulin Ratio 1.1 Lipase TSH Urine RBC Urine WBC Ur Squamous Epith Cells Amorphous Sediment Urine Bacteria Urine Mucus Ur Culture Indicated? Nasal Screen MRSA (PCR) SARS-CoV-2 (PCR) [facility] Medical History Atrial fibrillation (09/20/10) Bilateral shoulder pain Bipolar disorder Cardiomyopathy Chronic diarrhea (06/10/16) Cognitive decline Controlled type 2 diabetes mellitus (09/20/10) Essential hypertension (09/20/10) Head contusion History of Graves' disease History of placenta previa Irritable bowel syndrome Minor head injury without loss of consciousness Neuropathy of both feet Renal artery stenosis (09/20/10) Retinal scar Rheumatoid arthritis Right leg pain Sprain of left shoulder Stye Systolic congestive heart failure (09/20/10) Thyroid nodule Vision disorder Surgical History Anesthesia History of hip replacement History of knee replacement History of partial surgical removal of colon (06/10/16) Status post dilation and curettage Social History details: She is living with her in a trailer. She is a Jehovah's Wi household members: spouse Smoking Status: Former smoker alcohol intake: former Assessment & Plan Assessment & Plan narrative: Bradycardia patient with the bradycardia. I guess was low as the high 20s. Since she has been on the hospital floor its admit 40s. She is on a beta-mary due to her history of heart failure. Her echo Reg is been held. Her pulse is still low. She is still complaining of weakness although this is not unusual for her. She says she has been up out of bed. She is hungry. Will continue to monitor her with telemetry. Continue to hold her beta-mary and see if her pulse rate will go up. Have to find alternative medications for heart failure prevention. Nonspecific cardiac enzyme elevation. Patient's cardiac enzyme is slightly elevated other than weakness he is not having any significant chest pain. Will go ahead and reorder her cardiac troponin for later this afternoon to make sure it is not trending up. History of atrial fibrillation no atrial fibrillation now she is not on anticoagulation. She has frequent PVCs. Beta-blockers on hold. Monitor for signs symptoms of atrial fibrillation Chronic diarrhea. Patient with ongoing chronic diarrhea. History of irritable bowel syndrome. Encouraged her to stop magnesium supplement his magnesium is slightly high. Continue to monitor symptoms of diarrhea provide Imodium if needed. Chronic renal failure. Patient with the improved renal function this morning probably due to hydration in the emergency department. She is not on IV fluids. Will monitor closely electrolytes and kidney function. Essential hypertension. Monitor closely patient's blood pressure is slightly high. Patient is placed back on her Cozaar and spironolactone. Beta-blockers on hold. Prophylaxis for DVT Disposition and plan. Ambulate today. Work on diet. Monitor for signs symptoms of significant bradycardia. No pauses nose indication for her needing a pacemaker yet. Hopefully as the beta-mary work their way out of her system her pulse will go up and patient will feel little better.
[2020-10-08] MEDS: POTASSIUM CHLORIDE 20 MEQ TAB PO (08:27)
[2020-10-08] MEDS: LOSARTAN 25 MG TABLET PO (08:27)
[2020-10-08] MEDS: FUROSEMIDE 40 MG TABLET PO (08:27)
[2020-10-08] MEDS: SODIUM CHLORIDE 0.9% FLUSH 10 ML IV ×2 (08:28→21:49)
[2020-10-08] MEDS: SPIRONOLACTONE 25 MG TABLET PO (08:28)
--- NOTE | 2020-10-08 09:17 | CM.DANOTE ---
DCP: Case received, EMR reviewed and met with patient. , Ryan, was also at bedside. Introduced self and role. Was able to obtain information regarding patient's baseline activity status prior to hospitalization. DCP assessment completed with information currently available. Patient is an 79 year old female who admitted yesterday evening to the care of the hospitalist team. PCP: Dr. Castro. Payer: confirmed: [facility] Medicare. Patient came to the hospital via private vehicle due to her having abdominal pain and diarrhea. Patient does have history of chronic diarrhea. According to , she has had this off and on for the past 25 years since she had her appendix removed, and they had to remove some bowel with it. He also indicated that she has been taking over the counter medications that help with this. Patient was noted to have bradycardia as well. Met with patient and in the room. She is alert and oriented. She does use a FWW, and does not drive. takes her to appointments, and other errands if needed. She resides in a trailer with her here in [place], and is Jehova's Witness. P: DCP to continue to follow. She will be working with P.T. today. She should be able to go home when she is deemed medically stable. Mikaela Kirk RN/Seismographer
--- NOTE | 2020-10-08 12:25 | PT.IIE ---
Surgical History (Last Reviewed 10/07/20 @ 22:18 by Pia Pineda MD) Anesthesia History of hip replacement History of knee replacement History of partial surgical removal of colon (06/10/16) Status post dilation and curettage Medical History (Last Reviewed 10/07/20 @ 22:18 by Pia Pineda MD) Atrial fibrillation (09/20/10) Bilateral shoulder pain Bipolar disorder Cardiomyopathy Chronic diarrhea (06/10/16) Cognitive decline Controlled type 2 diabetes mellitus (09/20/10) Essential hypertension (09/20/10) Head contusion History of Graves' disease History of placenta previa Irritable bowel syndrome Minor head injury without loss of consciousness Neuropathy of both feet Renal artery stenosis (09/20/10) Retinal scar Rheumatoid arthritis Right leg pain Sprain of left shoulder Stye Systolic congestive heart failure (09/20/10) Thyroid nodule Vision disorder Physical Therapy Inpatient Evaluation/Re-Eval M1 PT/OT-IP Prior Functional Status Start: 10/08/20 09:05 Freq: NEEDED Status: Active Protocol: Document 10/08/20 12:25 AW (Rec: 10/08/20 13:32 AW [id number]) Medical Review Prior Functional Status Medical History Reviewed Yes Communication Per EMR, pt has dementia. She is able to make her needs known Mobility and Gait Pt was hospitalized in January 2020 and reported multiple falls at that time. She denies falling since that admission. She uses a FWW or cruises furniture to walk in her mobile home. She uses a 4WW for walking outside with a limit of ~100 yards (per her ). Activities of Daily Living and IADL's Daughter, Rina, assists with showers and laundry. Daughter, Janelle, and , Ryan do cooking. Ryan drives to appointments. Social History Household Members spouse Living Arrangements Mobile home Number of Floors (Floors) One Floor Number of Stairs To Enter/Railing? 4 ANA with left rail ascending Home Environment High Toilet,Walk in Shower Home Equipment Front Wheel Walker,Four Wheel Walker,Straight Cane,Manual Wheelchair,Shower Seat with Backrest,Hand Held Shower,Grab Bars Near Toilet,Grab Bars In Shower Additional Social History Comment Pt lives with her , Ryan, who assists with IADL's . Their daughters also live nearby and assist as noted above. M2 PT-IP Current Condition Start: 10/08/20 09:05 Freq: NEEDED Status: Active Protocol: Document 10/08/20 12:25 AW (Rec: 10/08/20 13:32 AW [id number]) Physical Therapy Current Condition Current Condition Evaluation Date 10/08/20 Treatment Diagnosis bradycardia; weakness; impaired mobility and gait Onset Date 10/07/20 M3 PT-IP Subjective Start: 10/08/20 09:05 Freq: NEEDED Status: Active Protocol: Document 10/08/20 12:25 AW (Rec: 10/08/20 13:32 AW [id number]) Subjective Physical Therapy Visit Type Type Initial Evaluation Visit Start Time 11:58 Visit Stop Time 12:25 Total Visit Minutes 27 Notes Pt's spouse was present throughout and contributed to history. Number of SUPERVISOR VARNISH Visits 0 Physical Therapy Visit Comments Patient Comments Pt is willing to participate with TP Patient Goals Return home with family support Therapy Pain Assessment Pain When Pain Assessed During Mobility M4 PT-IP Mobility and Gait Start: 10/08/20 09:05 Freq: NEEDED Status: Active Protocol: Document 10/08/20 12:25 AW (Rec: 10/08/20 13:32 AW [id number]) PT-Transfer Assessment Sit to and From Stand Sit to and from Stand Minimal Assistance,1 Person Assistance,Use of Upper Extremities Equipment Transfer Assistive Device Gait Belt,Front Wheeled Walker Orthotic/Prosthetic Devices or Brace: No Transfers Transfer Destination Wheelchair Transfer Technique Stand Step Pivot Transfer Ability Level of Assist Contact Guard Assistance,1 Person Assistance,Use of Upper Extremities Comments Mobility Comments Pt was sitting up in her own wheelchair as PT arrived. BP 182/81. HR was in the 40's. She stood from the chair min assist and walked to the sink with FWW CGA. Standing balance was good as she washed her hands; however, she was leaning her trunk against the counter. HR was steady in the low 50's. She reported fatigue and needed to sit, returning to the wheelchair with FWW CGA . BP was 141/68, HR remained in the 40's. She sat in the w/ c and was set up for lunch, call light and all needs in reach. Gait Assessment Gait Gait Assistance Required: Contact Guard Assist Distance (Feet) 10 Able to Maintain Weight Bearing Status Yes During Gait Assistive Devices Assistive Device Gait Belt,Front Wheeled Walker Gait Deviations General Gait Pattern Antalgic,Decreased Stride Length,Decreased Feet Clearance,Flexed Trunk Factors Limiting Gait Function Factors Limiting Gait Function Decreased Activity Tolerance, Decreased Sensation,Decreased Strength,Pain,Poor Balance, Respiratory Distress Stair Climbing Assessment Comments Stair Climbing Comments Not assessed. PT-Balance Assessment Sitting Balance and Reactions Static Sitting Balance Ability Good Dynamic Sitting Balance Ability Good Standing Balance and Reactions Static Standing Balance Ability Fair Dynamic Standing Balance Ability Fair Device Used FWW Balance Tests Single Limb Standing <2 sec with FWW for support M5 PT-IP Objective Assessments Start: 10/08/20 09:05 Freq: NEEDED Status: Active Protocol: Document 10/08/20 12:25 AW (Rec: 10/08/20 13:32 AW [id number]) Orientation Orientation/Cognition Level of Alertness Alert Orientation Name,Day of Week,Place, Situation Language Function Ability No Deficits Noted Safety Awareness Decreased Safety Awareness Memory Description Short Term Impaired Gross Range of Motion Upper Extremity ROM Assessment Within Functional Limits Lower Extremity ROM Assessment Within Functional Limits Strength Lower Extremity Strength Assessment Bilaterally Impaired Hip 3+/5 Knee 4-/5 Ankle 4-/5 Sensation Assessment Sensation Gross Sensation Right LE Impaired,Left LE Impaired Light Touch Impaired Proprioception (Position) Impaired Comments Sensation Comments neuropathy affecs bilateral feet and lower legs up to knees Muscle Tone Muscle Tone WNL Yes M6 PT-IP Treatment Start: 10/08/20 09:05 Freq: NEEDED Status: Active Protocol: Document 10/08/20 12:25 AW (Rec: 10/08/20 13:32 AW [id number]) Physical Therapy Treatment Education Education Provided Safety M7 PT-IP Assessment and Plan Start: 10/08/20 09:05 Freq: NEEDED Status: Active Protocol: Document 10/08/20 12:25 AW (Rec: 10/08/20 13:32 AW [id number]) PT Summary Assessment and Plan Potential Rehabilitation Potential Good Status of Condition at Evaluation Evolving Summary Impairments Pain,Strength,Balance, Sensation,Cognition,Bed Mobility,Transfers,Gait, Activity Tolerance Assessment Summary Tia is an 79 yo woman with admitting diagnosis of bradycardia worsening diarrhea . She is modified independent at baseline with FWW or 4WW. She lives in a mobile home and generally has something to hold on to as she moves around her home. She required CGA to min assist with mobility during evaluation. She has assist at home and will likely be able to discharge home once medically cleared. She may benefit from home health PT to improve strength and mobility independence. Goals Bed Mobility Goal Independent Transfer Goal Standby Assistance Gait Goal Standby Assistance,Front Wheel Walker Gait Distance 150 Other Goals - up/down 4 steps with left rail ascending SBA Days to Meet Goals 4 Frequency of Treatment Frequency Of Treatment Once a Day Treatment Plan Physical Therapy Treatment Plan Bed Mobility Training,Transfer Training,Gait Training, Therapeutic Exercise,Balance Retraining,Discharge Planning, Hot or Cold Pack,Neuromuscular Re-ed Other Recommendations and Next Treatment progress gait distance; stairs Focus when able Recommendations To Nursing Amount of Assist Needed 1 Person Assist Discharge Recommendations PT Discharge Recommendations Home with Assistance,Home with / Assist Available,Home Health Transportation Needs at Discharge Private Vehicle
[2020-10-08] MEDS: ACETAMINOPHEN 325 MG TABLET 650 MG PO (13:44)
--- NOTE | 2020-10-08 17:26 | PC.NURSE ---
Addendum entered by Sylvia Ackerman R.N. 10/08/20 22:52: 2100 Pt has become agitated and confused, pt is requesting to leave the hospital AMA. Dr. Cordoba notified and order received for IV ativan. 0.5 mg iv given with pt now resting comfortably in bed. Original Note: Evening Shift: Pt is easily arousable and oriented to self, birthdate and season. Does not know exact date and did not know place or situation until she started having discussion. Pt is aware that she has memory loss and discussed her Alzheimer's diagnosis. Denies pain. No focal neuro deficits. Pt is on RA, SPO2 98%, denies SOB. Lungs CTA. Pt remains bradycardic, HR 30's, frequent PVC's. SB at times, also times with possible slow a-fib or heart block. Pt denies SOB, CP or pressure. Pt denies light-headedness. BP 150/65. Pt with chronic diarrhea. Very small pellet of stool with urination. Pt denies nausea, tolerating meals. Good appetite. Good BTs in all quadrants. Call light within reach, chair alarm on and functioning.
[2020-10-08] MEDS: LORazepam 2 MG/ML INJ 0.5 MG IV (21:49)
[2020-10-08] MEDS: ESCITALOPRAM 10 MG TABLET PO (21:49)
[2020-10-09 01:15] VITALS: O2SAT 97
[2020-10-09 01:36] VITALS: BP 177/92; PULSE 47; RESP 17; TEMP 36.2; O2SAT 98
[2020-10-09 05:22] LABS: Add Manual Diff / Slide Review NO; Basophils Absolute Auto 100 /uL (0-100); Basophils Percent Auto 0.8 % (0-2); Eosinophils Absolute Auto 300 /uL (0-450); Eosinophils Percent Auto 3.9 % (2-4); Hematocrit 38.1 % (36-46); Hemoglobin 12.6 g/dL (12.0-16.0); Lymphocytes Absolute Auto 2600 /uL (1100-4500); Lymphocytes Percent Auto 30.5 % (25-40); Monocytes Absolute Auto 800 /uL (0-900); Monocytes Percent Auto 9.7 % (3-14); Neutrophils Absolute Auto 4700 /uL (1500-7000); Neutrophils Percent Auto 55.1 % (50-75); Platelet Count 192 X10^3/uL (150-400); Red Blood Cell Count 4.34 X10^6/uL (4.0-5.2); White Blood Cell Count 8.5 X10^3/uL (4.5-11.0)
[2020-10-09] MEDS: LEVOTHYROXINE 100 MCG TABLET PO (05:29)
[2020-10-09 05:34] VITALS: BP 156/67; PULSE 40; RESP 16; TEMP 36.2; O2SAT 96
[2020-10-09 05:35] LABS: Alanine Aminotransferase 16 IU/L (<35); Albumin 3.3 g/dL (3.5-5.0); Albumin Globulin Ratio 1.1 (1.0-2.8); Alkaline Phosphatase 133 U/L (38-126); Aspartate Aminotransferase 26 IU/L (14-36); Bilirubin Total 0.3 mg/dL (0.2-1.3); Blood Urea Nitrogen 52 mg/dL (7-17); Calcium 9.1 mg/dL (8.4-10.2); Carbon Dioxide 20 mmol/L (22-32); Chloride 114 mmol/L (98-107); Estimated Glomerular Filt Rate 53.2 mL/min (>60); Globulin 2.9 g/dL (1.7-4.1); Glucose 112 mg/dL (80-110); HEMOLYSIS < 15 (0-50); Sodium 139 mmol/L (137-145); Total Protein 6.2 g/dL (6.3-8.2)
--- NOTE | 2020-10-09 06:42 | PC.NURSE ---
Addendum entered by Allyssa Owen R.N. 10/09/20 06:50: HR remains in bradycardia, rate 30-40s at rest, 70s while ambulating, asymptomatic. Original Note: Lubricating Engineer Note-Patient slept most of the night, does not use call light for assist to BSC, bed alarm on. During 1st assessment, she was calm and pleasant, oriented to person and place. When she woke up at 0530, she was angry and suspicious. She says my wants me to have a bath while I'm here, she was showered with assist, now sitting up in chair with chair alarm on, says she is comfortable.
--- NOTE | 2020-10-09 07:18 | P.DS_ITS ---
History of Present Illness History of Present Illness Chief complaint: diarrhea, lot of pain left side lower abdomen Narrative: See in patient note. Discharge Providers Provider Date of admission: 10/07/20 20:47 Discharge Date: 10/09/20 Primary care physician: Live Castro MD Consults: 10/07/20 20:31 Consult to Physician Stat Comment: Consulting Provider: Live Castro Reason for consultation: admission Has provider been notified: No Consult to Physician Urgent Comment: Consulting Provider: Pia Pineda Reason for consultation: Bradycardia Has provider been notified: Yes 10/07/20 22:12 Consult to Discharge Planning Routine Comment: Consult to Physical Therapy Evaluate & Treat Comment: Physician Instructions: Evaluate and Treat Discharge provider: Live Castro MD Summary Hospital Course Discharge Diagnosis: Bradycardia with ventricular escape beats Chronic systolic heart failure Troponin elevation without acute myocardial ischemia Essential hypertension Insulin-dependent diabetes Chronic diarrhea Hospital Course: Patient was admitted the hospital with weakness and bradycardia. Patient has a history of diabetes mild heart failure with coronary artery disease. The last few weeks she has had some increasing bouts of weakness which is not uncommon for her. She was brought into the emergency department by her because she was weak. Her heart rate was found to be as low is a 38-40 at times. Patient was on a beta-mary for her heart failure. As her weakness and. The cardia she was admitted to the hospital for further evaluation and workup Hospital course patient was placed on telemetry monitoring. Her beta-mary was held. Her blood pressure medication was increased including her losartan as well as her spironolactone. During the hospital stay with removing of her beta- mary her heart rate still dips sometimes into the high 30s but maintained itself in the 50s to 60s. The time of discharge she was ambulating. She was eating. And feeling like she was ready to go home. At baseline patient has some cognitive changes and at times becomes quite agitated. Especially in the hospital. During hospital she did receive a couple of the small doses of lorazepam to help with the that. And she did well. Exam Vital Signs (past 8 hours): - 10/09/20 01:15 10/09/20 01:36 10/09/20 05:34 Temperature 97.2 F L 97.1 F L Pulse Rate 47 L 40 L Respiratory Rate 17 16 Blood Pressure 177/92 H 156/67 H Pulse Oximetry 97 98 96 Oxygen Delivery Method Room Air Oxygen Flow Rate 0 Objective Labs Result Diagrams: 10/09/20 04:53 10/09/20 04:53 Labs: Laboratory Results - last 24 hr 10/09/20 10/09/20 04:53 04:53 WBC 8.5 RBC 4.34 Hgb 12.6 Hct 38.1 MCV 88.0 MCH 29.0 MCHC 33.0 RDW 14.0 Plt Count 192 Neut % (Auto) 55.1 Lymph % (Auto) 30.5 [place] % (Auto) 9.7 Eos % (Auto) 3.9 Baso % (Auto) 0.8 Neut # (Auto) 4700 Lymph # (Auto) 2600 [place] # (Auto) 800 Eos # (Auto) 300 Baso # (Auto) 100 Sodium 139 Potassium 5.0 Chloride 114 H Carbon Dioxide 20 L BUN 52 H Creatinine 1.00 Estimated GFR 53.2 L BUN/Creatinine Ratio 52.0 H Glucose 112 H Calcium 9.1 Total Bilirubin 0.3 AST 26 ALT 16 Alkaline Phosphatase 133 H Total Protein 6.2 L Albumin 3.3 L Globulin 2.9 Albumin/Globulin Ratio 1.1 [facility] Medical History Atrial fibrillation (09/20/10) Bilateral shoulder pain Bipolar disorder Cardiomyopathy Chronic diarrhea (06/10/16) Cognitive decline Controlled type 2 diabetes mellitus (09/20/10) Essential hypertension (09/20/10) Head contusion History of Graves' disease History of placenta previa Irritable bowel syndrome Minor head injury without loss of consciousness Neuropathy of both feet Renal artery stenosis (09/20/10) Retinal scar Rheumatoid arthritis Right leg pain Sprain of left shoulder Stye Systolic congestive heart failure (09/20/10) Thyroid nodule Vision disorder Surgical History Anesthesia History of hip replacement History of knee replacement History of partial surgical removal of colon (06/10/16) Status post dilation and curettage Social History details: She is living with her in a trailer. She is a [employer] household members: spouse Smoking Status: Former smoker alcohol intake: former Discharge Plan Discharge Plan Patient Disposition: Home Discharge orders & Medications Prescriptions: Continued escitalopram oxalate 10 mg tablet 10 mg PO .HS Qty: 90 RF: 3 levothyroxine 100 mcg tablet 100 mcg PO DAILY Qty: 90 RF: 3 spironolactone 25 mg tablet 25 mg PO DAILY Qty: 90 RF: 3 Lantus U-100 Insulin 100 unit/mL solution 40 unit SUBCUT DAILY Qty: 10 RF: 11 potassium chloride [K-Tab] 20 mEq tablet extended release 20 meq PO BID Qty: 180 RF: 3 loperamide [Imodium A-D] 2 mg tablet 2 mg PO Q1-2H PRN (Reason: diarrhea) Qty: 60 RF: 1 furosemide 40 mg tablet See Rx Instructions .ROUTE .COMPLEX Qty: 180 RF: 3 insulin syringe-needle U-100 [BD Insulin Syringe Ultra-Fine] 1 mL 30 gauge x 1/2 syringe See Rx Instructions .ROUTE .COMPLEX Qty: 100 RF: 3 Disabled Parking Permit 1 ea miscellaneous DIRECTED RF: 0 acetaminophen 325 mg Tablet 650 mg PO Q6HR PRN (Reason: Fever/Mild Pain (1-3)) Qty: 30 RF: 0 Changed losartan 50 mg tablet 50 mg PO DAILY 90 Days Qty: 90 RF: 3 Discontinued carvedilol [Coreg] 6.25 mg tablet 6.25 mg PO BID Qty: 180 RF: 3 Follow up/Referrals: Live Castro MD [Primary Care Provider] - Discharge Health Status Health Concerns: Patient will be arranged for an outpatient cardiology visit for her bradycardia. Multidrug resistant organism: No MDRO Diet/Activity/Treatments Diet: Diet as Tolerated Visit Report/Discharge Packet Visit Report Forms: Patient Portal/API, Stroke Signs & Symptoms Discharge Data Primary Care Provider: Live Castro Attending Provider: Live Castro Admit Date/Time: 10/07/20 20:47
--- NOTE | 2020-10-09 07:41 | CM.DPC ---
Addendum entered by Mikaela Kirk R.N. 10/09/20 10:21: Spoke to patient regarding home health services. Asked her if she is interested in home health services, stated, she is, as long as its covered by her insurance. Stated that most home health services are covered, in her case, agency would need to get authorization for [employer]. She has no preferences on home health agencies, but is interested. On calendar this week is [facility]. Called Pia at [facility] and gave her update on patient, that she is being discharged. Went ahead and electronically faxed over face sheet, H&P, DC Summary and some P.T. notes. Will fax over orders and face to face separately. Plan is home today with [facility]. Original Note: DCP Cont: Patient has discharge orders for today. P.T. worked with patient yesterday, recommended home health. Dr. Castro was still here, had him sign face to face. Left a list of home health agencies in patient's room, will ask when he arrives, and patient if they have a home health agency choice. Have already completed face to face and have orders. P: Patient is discharging home today. Will discuss home health agencies with patient and . Patient is currently up in her chair sleeping. Mikaela Kirk RN/[employer]
[2020-10-09 08:00] VITALS: BP 179/77; PULSE 60; RESP 15; TEMP 36.2; O2SAT 95; O2SAT 97
[2020-10-09] MEDS: FUROSEMIDE 40 MG TABLET PO (08:09)
[2020-10-09] MEDS: SPIRONOLACTONE 25 MG TABLET PO (08:09)
[2020-10-09] MEDS: LOSARTAN 25 MG TABLET PO (08:09)
[2020-10-09] MEDS: POTASSIUM CHLORIDE 20 MEQ TAB PO (08:12)
[2020-10-09] MEDS: SODIUM CHLORIDE 0.9% FLUSH 10 ML IV (08:12)
== END 2020-10-09 10:05 | disposition home health service (06) | DRG 309 ==
LOC: ED 18:31 → ICU 22:08 → AC 10-15 11:47 → ICU 10-15 11:47
PROVIDERS: Family Medicine; Admitting Provider Family Medicine; Emergency Provider Emergency Medicine; PCP Family Medicine; Referring Provider Emergency Medicine; Visit Provider Family Medicine
DX: R00.1 Bradycardia, unspecified (principal); I13.0 Hypertensive heart and chronic kidney disease with heart failure and stage 1 through stage 4 chronic kidney disease, or unspecified chronic kidney disease; I50.22 Chronic systolic (congestive) heart failure; N39.0 Urinary tract infection, site not specified; B96.20 Unspecified Escherichia coli [E. coli] as the cause of diseases classified elsewhere; N18.9 Chronic kidney disease, unspecified; R79.89 Other specified abnormal findings of blood chemistry; E87.6 Hypokalemia; R41.81 Age-related cognitive decline; R45.1 Restlessness and agitation; E11.22 Type 2 diabetes mellitus with diabetic chronic kidney disease; E03.9 Hypothyroidism, unspecified; I25.10 Atherosclerotic heart disease of native coronary artery without angina pectoris; Z79.4 Long term (current) use of insulin; Z87.891 Personal history of nicotine dependence; Z20.822 Contact with and (suspected) exposure to COVID-19; Z66 Do not resuscitate
CPT/HCPCS: 36415; 80053; 81003; 81015; 82550; 82553; 82962; 83690; 83735; 84443; 84484; 85025; 87077; 87086; 87186; 87635; 87797; 93005; 93010; 96360; 97162; 99217; 99225; 99284; C9803; G0378; C8929; J1815; J2060; Q9957

== ENCOUNTER → 2020-11-08 14:28 | Outpatient (CLI) | payer MEDICARE, SELFPAY ==
[2019-05-25 05:36] VITALS: PULSE 81; RESP 22; O2SAT 98
[2020-11-08 15:57] LABS: BUN Creatinine Ratio 43.1 (6-22); Blood Urea Nitrogen 47 mg/dL (7-17); Calcium 9.4 mg/dL (8.4-10.2); Carbon Dioxide 19 mmol/L (22-32); Chloride 111 mmol/L (98-107); Estimated Glomerular Filt Rate 48.1 mL/min (>60); Glucose 160 mg/dL (80-110); HEMOLYSIS < 15 (0-50); Potassium 4.3 mmol/L (3.4-5.1); Sodium 137 mmol/L (137-145)
== END ==
PROVIDERS: PCP Family Medicine; Referring Provider Internal Medicine Cardiovascular Disease; Visit Provider Internal Medicine Cardiovascular Disease
DX: I44.7 Left bundle-branch block, unspecified (principal)
CPT/HCPCS: 36415; 80048

== ENCOUNTER 2021-01-24 19:26 | Emergency (ER) | payer MEDICARE, SELFPAY ==
[2019-05-25 05:36] VITALS: PULSE 81; RESP 22; O2SAT 98
[2021-01-24 19:35] VITALS: BP 130/58; PULSE 82; RESP 14; TEMP 36.9; O2SAT 98; BMI 24.7
== END 2021-01-24 21:03 | disposition left against medical advice (07) ==
PROVIDERS: Emergency Provider Emergency Medicine; PCP Family Medicine
CPT/HCPCS: 99281

== ENCOUNTER → 2021-03-01 09:39 | Outpatient (CLI) | payer MEDICARE, SELFPAY ==
[2019-05-25 05:36] VITALS: PULSE 81; RESP 22; O2SAT 98
[2021-03-01 10:11] LABS: Hemoglobin A1C% w Est Avg Glu 7.2 % (4.0-6.0)
[2021-03-01 10:21] LABS: BUN Creatinine Ratio 46.9 (6-22); Blood Urea Nitrogen 60 mg/dL (7-17); Calcium 9.7 mg/dL (8.4-10.2); Carbon Dioxide 24 mmol/L (22-32); Chloride 104 mmol/L (98-107); Estimated Glomerular Filt Rate 39.9 mL/min (>60); Glucose 177 mg/dL (80-110); HEMOLYSIS 16 (0-50); Potassium 3.9 mmol/L (3.4-5.1); Sodium 136 mmol/L (137-145)
== END ==
PROVIDERS: PCP Family Medicine; Referring Provider Family Medicine; Visit Provider Family Medicine
DX: E11.9 Type 2 diabetes mellitus without complications (principal)
CPT/HCPCS: 36415; 80048; 83036

== ENCOUNTER → 2021-06-06 10:47 | Outpatient (CLI) | payer MEDICARE, SELFPAY ==
[2021-03-11 12:45] VITALS: PULSE 81; RESP 22; O2SAT 98; BMI 26.3
[2021-06-06 11:36] LABS: Add Manual Diff / Slide Review NO; Basophils Absolute Auto 100 /uL (0-100); Basophils Percent Auto 0.9 % (0-2); Eosinophils Absolute Auto 200 /uL (0-450); Eosinophils Percent Auto 2.7 % (2-4); Hematocrit 42.3 % (36-46); Hemoglobin 13.9 g/dL (12.0-16.0); Lymphocytes Absolute Auto 1800 /uL (1100-4500); Lymphocytes Percent Auto 22.3 % (25-40); Mean Corpuscular HGB Conc 32.9 % (30-36); Mean Corpuscular Volume 84.9 fL (80-100); Monocytes Absolute Auto 500 /uL (0-900); Monocytes Percent Auto 6.2 % (3-14); Neutrophils Absolute Auto 5500 /uL (1500-7000); Neutrophils Percent Auto 67.9 % (50-75); Platelet Count 209 X10^3/uL (150-400); Red Blood Cell Count 4.98 X10^6/uL (4.0-5.2); Red Cell Distribution Width 15.7 % (11.6-14.8); White Blood Cell Count 8.1 X10^3/uL (4.5-11.0)
[2021-06-06 11:40] LABS: Hemoglobin A1C% w Est Avg Glu 7.4 % (4.0-6.0)
[2021-06-06 11:54] LABS: Alanine Aminotransferase 18 IU/L (<35); Albumin 3.9 g/dL (3.5-5.0); Albumin Globulin Ratio 1.3 (1.0-2.8); Alkaline Phosphatase 163 U/L (38-126); Aspartate Aminotransferase 32 IU/L (14-36); BUN Creatinine Ratio 46.5 (6-22); Bilirubin Total 0.5 mg/dL (0.2-1.3); Blood Urea Nitrogen 67 mg/dL (7-17); Calcium 9.3 mg/dL (8.4-10.2); Carbon Dioxide 21 mmol/L (22-32); Chloride 104 mmol/L (98-107); Cholesterol 132 mg/dL (140-199); Estimated Glomerular Filt Rate 34.8 mL/min (>60); Globulin 3.1 g/dL (1.7-4.1); Glucose 235 mg/dL (80-110); HDL Cholesterol 25 mg/dL (40-60); HEMOLYSIS < 15 (0-50); LDL Cholesterol Calculated 58 mg/dL (<100); Potassium 4.6 mmol/L (3.4-5.1); Sodium 135 mmol/L (137-145); Triglycerides 246 mg/dL (35-150)
[2021-06-06 12:34] LABS: Thyroid Stimulating Hormone 1.48 uIU/mL (0.47-4.68)
== END ==
PROVIDERS: PCP Family Medicine; Referring Provider Family Medicine; Visit Provider Family Medicine
DX: E11.9 Type 2 diabetes mellitus without complications (principal); I10 Essential (primary) hypertension
CPT/HCPCS: 36415; 80053; 80061; 83036; 84443; 85025

== ENCOUNTER 2021-07-15 14:18 | Inpatient (IN) | payer MEDICARE, SELFPAY ==
[2021-03-11 12:45] VITALS: PULSE 81; RESP 22; O2SAT 98; BMI 26.3
[2021-07-15] VITALS (22 sets, daily range): BP systolic 105–125; BP diastolic 53–59; PULSE 59–80; RESP 16–26; TEMP 36.4–36.8; O2SAT 76–100; BMI 26.2
--- NOTE | 2021-07-15 15:36 | DI.CT.S_ITS ---
PROCEDURE: CT ABDOMEN PELVIS WO CON INDICATIONS: Abdominal pain TECHNIQUE: Noncontrast 5 mm thick sections acquired from the diaphragms to the symphysis. 5 mm coronal and sagittal reformats were then performed. For radiation dose reduction, the following was used: automated exposure control, adjustment of mA and/or kV according to patient size. COMPARISON: None. FINDINGS: Image quality: Excellent. ABDOMEN: Lung bases: Lung bases are clear. Heart size is normal. Solid organs: Liver is normal in size. Gallbladder is normal . Pancreas is normal in contours. Spleen is normal in size. No adrenal nodules. Kidneys are normal in size, without hydronephrosis or nephrolithiasis. Peritoneum and bowel: Unenhanced bowel loops demonstrate normal wall thickness and caliber. No free fluid or air. No significant diverticula. No diverticulitis. Nodes and vessels: No retroperitoneal or mesenteric adenopathy by size criteria. Aorta and inferior vena cava are normal in caliber. Miscellaneous: No ventral hernias. PELVIS: Genitourinary: Bladder wall thickness is normal. Miscellaneous: No inguinal hernias or adenopathy. Bones: Post kyphoplasty changes are seen at L1. No suspicious bony lesions. No vertebral body compression fractures. IMPRESSION: No acute abdominal or pelvic abnormality. Dictated by: Rayshawn Mari M.D. on 07/15/2021 at 17:45 Approved by: Rayshawn Mari M.D. on 07/15/2021 at 17:50
[2021-07-15 16:39] LABS: Add Manual Diff / Slide Review NO; Basophils Absolute Auto 100 /uL (0-100); Basophils Percent Auto 0.5 % (0-2); Eosinophils Absolute Auto 100 /uL (0-450); Hematocrit 45.1 % (36-46); Hemoglobin 14.6 g/dL (12.0-16.0); Lymphocytes Absolute Auto 1900 /uL (1100-4500); Lymphocytes Percent Auto 17.2 % (25-40); Mean Corpuscular HGB Conc 32.4 % (30-36); Mean Corpuscular Volume 86.7 fL (80-100); Monocytes Absolute Auto 900 /uL (0-900); Monocytes Percent Auto 7.8 % (3-14); Neutrophils Absolute Auto 8200 /uL (1500-7000); Neutrophils Percent Auto 73.5 % (50-75); Platelet Count 320 X10^3/uL (150-400); Red Blood Cell Count 5.21 X10^6/uL (4.0-5.2); Red Cell Distribution Width 15.8 % (11.6-14.8); White Blood Cell Count 11.1 X10^3/uL (4.5-11.0)
[2021-07-15 16:46] LABS: Alanine Aminotransferase 16 IU/L (<35); Albumin 4.7 g/dL (3.5-5.0); Albumin Globulin Ratio 1.1 (1.0-2.8); Alkaline Phosphatase 153 U/L (38-126); Aspartate Aminotransferase 45 IU/L (14-36); Bilirubin Total 0.6 mg/dL (0.2-1.3); Calcium 9.9 mg/dL (8.4-10.2); Carbon Dioxide 15 mmol/L (22-32); Chloride 109 mmol/L (98-107); Estimated Glomerular Filt Rate 20.9 mL/min (>60); Globulin 4.2 g/dL (1.7-4.1); Glucose 97 mg/dL (80-110); Lipase 64 U/L (23-300); Sodium 133 mmol/L (137-145); Total Protein 8.9 g/dL (6.3-8.2)
[2021-07-15 16:52] LABS: BUN Creatinine Ratio 60.7 (6-22)
[2021-07-15] MEDS: ONDANSETRON 4 MG/2 ML INJ IV ×2 (17:02→23:18)
[2021-07-15] MEDS: KETOROLAC 30 MG/ML VIAL 15 MG IV (17:02)
[2021-07-15 17:11] LABS: Blood Urea Nitrogen 136 mg/dL (7-17)
--- NOTE | 2021-07-15 17:20 | ED.ABDPAIN ---
HPI - Abdominal Pain <Can Mac PA-C - Last Filed: 07/15/21 20:03> General Chief Complaint: Abdominal Pain Stated Complaint: Not Feeling Well, Stomach Issues Time Seen by Provider: 07/15/21 14:44 Source: patient and family Mode of arrival: Wheelchair History of Present Illness HPI narrative: 80-year-old female with past medical history hypertension, CHF, type 2 diabetes, AFib, renal artery stenosis, status post pacemaker, dementia presents to the ED with 1 month of worsening abdominal pain. Patient complains of periumbilical abdominal pain, nausea, vomiting. Patient denies fever, chills, chest pain, shortness of breath, diarrhea, hematochezia, melena, dysuria, flank pain, lightheadedness, dizziness, syncope. Patient is accompanied by her who is able to provide good history. Related Data Home Medications Medication Instructions Recorded Confirmed Disabled Parking Permit 1 ea MISCELLANEOUS DIRECTED 08/20/18 03/11/21 Previous Rx's Medication Instructions Recorded acetaminophen 325 mg tablet 650 mg PO Q6HR PRN #30 tab 05/31/19 insulin syringe-needle U-100 1 mL See Rx Instructions .ROUTE 09/10/20 30 gauge x 1/2 (BD Insulin .COMPLEX #100 ea Syringe Ultra-Fine) levothyroxine 100 mcg tablet See Rx Instructions .ROUTE 10/26/20 .COMPLEX #90 tab escitalopram oxalate 10 mg tablet 10 mg PO .HS #90 tab 11/06/20 insulin glargine 100 unit/mL 40 unit (0.4 mL) SUBCUT DAILY #10 11/19/20 subcutaneous solution (Lantus ml U-100 Insulin) DISABLED PARKING PERMIT #1 ea 03/11/21 spironolactone 25 mg tablet 25 mg PO DAILY #90 tab 03/18/21 lisinopril 20 mg tablet 20 mg PO DAILY #90 tab 06/10/21 potassium chloride 20 mEq 20 meq PO BID #180 tab 06/10/21 tablet,extended release (K-Tab) loperamide 2 mg capsule 2 mg PO .EVERY 1-2 HOURS PRN #60 06/19/21 cap memantine 5 mg tablet (Namenda) 5 mg PO .HS #90 tab 06/24/21 furosemide 40 mg tablet See Rx Instructions .ROUTE 07/08/21 .COMPLEX #180 tab Allergies Allergy/AdvReac Type Severity Reaction Status Date / Time egg Allergy Severe weakness Verified 03/11/21 12:11 on the right side of body after vaccine Anesthetics - Amide Type - Allergy Unknown Verified 03/11/21 12:11 Select A [ANESTHETICS - AMIDE TYPE] codeine [CODEINE] Allergy Unknown Verified 03/11/21 12:11 lidocaine [From XYLOCAINE] Allergy Unknown WHEN HAD Verified 03/11/21 12:11 TEETH WORKED ON lisinopril [LISINOPRIL] Allergy Unknown Verified 03/11/21 12:11 milk [MILK] Allergy Unknown Verified 03/11/21 12:11 morphine [MORPHINE] Allergy Unknown Verified 03/11/21 12:11 oxycodone [OXYCODONE] Allergy Unknown Verified 03/11/21 12:11 Penicillins [PENICILLINS] Allergy Unknown Verified 03/11/21 12:11 influenza virus vaccine, Allergy weakness Verified 03/11/21 12:11 specific on the right side of body after vaccine Review of Systems <Can Mac PA-C - Last Filed: 07/15/21 20:03> Review of Systems ROS Unobtainable: All systems reviewed & are unremarkable except as noted in HPI and below Constitutional Constitutional: Denies chills, Denies fatigue, Denies fever(s), Denies frequent falls, Denies lethargy and Denies weakness Eyes Eyes: Denies change in vision, Denies eye discharge, Denies irritation and Denies loss of vision ENT Ears, Nose, Mouth, and Throat: Denies change in voice, Denies dizziness, Denies neck pain, Denies sore throat and Denies throat swelling Cardiovascular Cardiovascular: Denies chest pain, Denies irregular heart rhythm, Denies lightheadedness, Denies palpitations, Denies dyspnea, Denies dyspnea on exertion and Denies orthopnea Respiratory Respiratory: Denies cough, Denies dyspnea, Denies dyspnea on exertion and Denies wheezing Gastrointestinal Gastrointestinal: Reports abdominal pain, Denies change in bowel habits, Denies diarrhea, Reports nausea and Reports vomiting Genitourinary Genitourinary: Denies hematuria, Denies flank pain, Denies urinary incontinence and Denies urinary urgency Musculoskeletal Musculoskeletal: Denies back pain, Denies muscle weakness, Denies neck pain, Denies numbness and Denies tingling Integumentary/Breasts Skin/Breast: Denies pruritus, Denies erythema, Denies rash and Denies wounds Neurologic Neurologic: Denies behavioral changes, Denies confusion, Denies dizziness, Denies frequent falls, Denies loss of vision, Denies numbness, Denies tingling and Denies weakness Psychiatric Psychiatric: Denies anxiety, Denies behavioral changes, Denies confusion, Denies depression, Denies homicidal ideation and Denies suicidal ideation Endocrine Endocrine: Denies fatigue, Denies flushing and Denies palpitations Hematologic/Lymphatic Hematologic/Lymphatic: Denies easy bruising Allergic/Immunologic Allergic/Immunologic: Denies urticaria, Denies throat swelling and Denies wheezing Patient History <Can Mac PA-C - Last Filed: 07/15/21 20:03> Medical History Atrial fibrillation (09/20/10) Bilateral shoulder pain Bipolar disorder Bradycardia Cardiomyopathy Chronic diarrhea (06/10/16) Cognitive decline Controlled type 2 diabetes mellitus (09/20/10) Essential hypertension (09/20/10) Fatigue Head contusion History of Graves' disease History of placenta previa Irritable bowel syndrome Minor head injury without loss of consciousness Neuropathy of both feet Renal artery stenosis (09/20/10) Retinal scar Rheumatoid arthritis Right leg pain Sprain of left shoulder Stye Systolic congestive heart failure (09/20/10) Thyroid nodule Vision disorder Weakness Surgical History Anesthesia History of hip replacement History of knee replacement History of partial surgical removal of colon (06/10/16) Status post dilation and curettage Social History details: She is living with her in a trailer. She is a [employer] household members: spouse Smoking Status: Former smoker alcohol intake: former Smoking Status: Former smoker alcohol intake frequency: 0-2 drinks per day Substance Use Type: does not use Exam <Can Mac PA-C - Last Filed: 07/15/21 20:03> Initial Vital Signs Initial Vital Signs: Vital Signs Temperature 97.6 F 07/15/21 14:31 Pulse Rate 59 L 07/15/21 14:31 Respiratory Rate 22 07/15/21 14:31 Blood Pressure 117/58 L 07/15/21 14:31 Pulse Oximetry 94 07/15/21 14:31 Const General: cooperative and healthy appearing [facility] Head: normal to inspection Eyes General: appearance normal, both eyes and all related structures Neck Neck: normal visual inspection Chest Chest: normal inspection of the chest Resp Effort & Inspection: normal respiratory effort Auscultation: clear to auscultation bilaterally Cardio Rate: regular rate Rhythm: regular rhythm GI Other: Abdomen is soft, nondistended. Abdomen tender to palpation in the left lower quadrant. General: No CVA tenderness Skin General: no rashes or lesions noted Neuro General: patient alert, patient awake and patient oriented x3 Psych Appearance: grossly normal Mental Status: mental status grossly normal <Jelani Houser DO - Last Filed: 07/16/21 07:01> Initial Vital Signs Initial Vital Signs: Vital Signs Temperature 97.6 F 07/15/21 14:31 Pulse Rate 59 L 07/15/21 14:31 Respiratory Rate 22 07/15/21 14:31 Blood Pressure 117/58 L 07/15/21 14:31 Pulse Oximetry 94 07/15/21 14:31 Course <Can Mac PA-C - Last Filed: 07/15/21 20:03> Orders Ordered: Acetaminophen (Acetaminophen 325 Mg Tablet) 650 mg PO Q6HR PRN PRN Reason: Fever/Mild Pain (1-3) Dextrose (Dextrose 50 % In Water 25 Gm/50 Ml Syringe) 25 gm IV PRN PRN PRN Reason: Hypoglycemia Escitalopram Oxalate (Escitalopram 10 Mg Tablet) 10 mg PO BEDTIME [facility] Last Admin: 07/15/21 23:04 Dose: 10 mg Documented by: LADONNA Hydromorphone HCl (Hydromorphone 0.5 Mg Inj) 0.5 mg IV Q6H PRN PRN Reason: Pain, Moderate (4-6) Last Admin: 07/15/21 23:54 Dose: 0.5 mg Documented by: LADONNA Sodium Chloride (Normal Saline 0.9%) 1,000 mls @ 100 mls/hr IV CONT [facility] Last Admin: 07/16/21 06:47 Dose: 250 mls/hr Documented by: Infusion: 07/16/21 06:47 Dose: 250 mls/hr Documented by: Infusion: 07/16/21 05:35 Dose: 250 mls/hr Documented by: Infusion: 07/16/21 05:13 Dose: 100 mls/hr Documented by: Infusion: 07/16/21 04:35 Dose: 999 mls/hr Documented by: Admin: 07/16/21 04:34 Dose: 100 mls/hr Documented by: Infusion: 07/16/21 04:34 Dose: 100 mls/hr Documented by: Admin: 07/15/21 21:54 Dose: 100 mls/hr Documented by: LADONNA Sodium Chloride (Normal Saline 0.9%) 1,000 mls @ 250 mls/hr IV CONT KIKO Stop: 07/16/21 09:44 Last Admin: 07/16/21 06:51 Dose: Not Given Documented by: LADONNA Insulin Glargine (Insulin Glargine 100 Unit/Ml 3ml Pen) 25 unit SUBCUT 2100 KIKO Last Admin: 07/15/21 23:03 Dose: 25 unit Documented by: LADONNA Cosigned by: [email or web address] Insulin Human Lispro (Insulin Lispro 100 Unit/Ml 3ml Vial) 0 unit SUBCUT ACHS [facility]; Protocol Last Admin: 07/15/21 23:01 Dose: 3 unit Documented by: LADONNA Cosigned by: [email or web address] Levothyroxine Sodium (Levothyroxine 100 Mcg Tablet) 100 mcg PO DAILY@0600 [facility] Last Admin: 07/16/21 06:50 Dose: 100 mcg Documented by: LADONNA Memantine (Memantine Hcl 5 Mg Tablet) 5 mg PO BEDTIME [facility] Last Admin: 07/15/21 23:03 Dose: 5 mg Documented by: LADONNA Naloxone HCl (Naloxone 0.4 Mg/Ml Vial) 0.2 mg IV Q2MIN PRN PRN Reason: Opiate Reversal Ondansetron HCl (Ondansetron 4 Mg/2 Ml Inj) 4 mg IV Q6HR PRN PRN Reason: Nausea And Vomiting Last Admin: 07/15/21 23:18 Dose: 4 mg Documented by: LADONNA Discontinued Medications Albuterol (Albuterol 2.5 Mg/3 Ml Neb (Adult)) 20 mg INH NOW ONE Stop: 07/15/21 17:32 Last Admin: 07/15/21 18:06 Dose: 20 mg Documented by: MULU Dextrose (Dextrose 50 % In Water 25 Gm/50 Ml Syringe) 25 gm IV NOW ONE Stop: 07/15/21 17:30 Last Admin: 07/15/21 18:10 Dose: 25 gm Documented by: KIKE Dextrose (Dextrose 50 % In Water 25 Gm/50 Ml Syringe) 25 gm IV NOW ONE Stop: 07/15/21 18:20 Last Admin: 07/15/21 17:30 Dose: 25 gm Documented by: KIKE Sodium Chloride (Normal Saline 0.9%) 1,000 mls @ 1,000 mls/hr IV BOLUS ONE Stop: 07/15/21 18:21 Last Admin: 07/15/21 19:38 Dose: Not Given Documented by: AIMEE Calcium Gluconate 4.65 meq/ (Sodium Chloride) 60 mls @ 180 mls/hr IV NOW ONE Stop: 07/15/21 17:47 Last Infusion: 07/15/21 19:16 Dose: 0 mls/hr Documented by: Admin: 07/15/21 18:09 Dose: 180 mls/hr Documented by: KIKE Ceftriaxone Sodium 1,000 mg/ (Sodium Chloride) 100 mls @ 200 mls/hr IV NOW ONE Stop: 07/15/21 19:55 Last Admin: 07/15/21 21:17 Dose: 200 mls/hr Documented by: LADONNA Sodium Chloride (Normal Saline 0.9%) 500 mls @ 1,000 mls/hr IV BOLUS ONE Stop: 07/16/21 05:47 Last Admin: 07/16/21 05:41 Dose: Not Given Documented by: LADONNA Insulin Human Regular (Insulin Regular 100 Unit/Ml 3 Ml Vial) 5 unit IV NOW ONE Stop: 07/15/21 17:30 Last Admin: 07/15/21 18:11 Dose: 5 unit Documented by: KIKE Cosigned by: PARAS Ketorolac Tromethamine (Ketorolac 30 Mg/Ml Vial) 15 mg IV NOW ONE Stop: 07/15/21 15:37 Last Admin: 07/15/21 17:02 Dose: 15 mg Documented by: PARAS Ondansetron HCl (Ondansetron 4 Mg/2 Ml Inj) 4 mg IV NOW ONE Stop: 07/15/21 15:37 Last Admin: 07/15/21 17:02 Dose: 4 mg Documented by: BTONER Sodium Polystyrene Sulfonate (Sodium Polystyrene Sulfon/Sorb 15 Gm/60 Ml Cup) 30 gm ND NOW ONE Stop: 07/15/21 17:33 Last Admin: 07/15/21 18:10 Dose: 15 gm Documented by: NRHOKM Sodium Polystyrene Sulfonate (Sodium Polystyrene Sulfon/Sorb 15 Gm/60 Ml Cup) 30 gm PO NOW ONE Stop: 07/15/21 22:04 Last Admin: 07/16/21 00:12 Dose: 30 gm Documented by: DFRENCH Vital Signs Vital signs: Vital Signs - 8 hr 07/15/21 14:31 07/15/21 16:00 07/15/21 16:27 Temperature 97.6 F Pulse Rate 59 L 80 77 Respiratory Rate 22 20 19 Blood Pressure 117/58 L 106/54 L Pulse Oximetry 94 98 97 07/15/21 16:30 07/15/21 16:45 07/15/21 17:00 Temperature Pulse Rate 75 78 77 Respiratory Rate 18 17 22 Blood Pressure 110/53 L Pulse Oximetry 98 98 92 07/15/21 17:01 07/15/21 17:25 07/15/21 17:30 Temperature Pulse Rate 79 75 75 Respiratory Rate 26 H 19 20 Blood Pressure 105/55 L Pulse Oximetry 98 76 L 96 07/15/21 17:45 07/15/21 17:46 07/15/21 18:00 Temperature Pulse Rate 77 77 79 Respiratory Rate 26 H 21 19 Blood Pressure 125/59 L Pulse Oximetry 92 92 95 07/15/21 18:15 07/15/21 18:30 07/15/21 18:45 Temperature Pulse Rate 76 78 75 Respiratory Rate 19 20 20 Blood Pressure Pulse Oximetry 92 99 93 07/15/21 19:00 07/15/21 19:15 Temperature Pulse Rate 75 75 Respiratory Rate 18 23 Blood Pressure Pulse Oximetry 99 93 <Jelani Houser DO - Last Filed: 07/16/21 07:01> Orders Ordered: Acetaminophen (Acetaminophen 325 Mg Tablet) 650 mg PO Q6HR PRN PRN Reason: Fever/Mild Pain (1-3) Dextrose (Dextrose 50 % In Water 25 Gm/50 Ml Syringe) 25 gm IV PRN PRN PRN Reason: Hypoglycemia Escitalopram Oxalate (Escitalopram 10 Mg Tablet) 10 mg PO BEDTIME [facility] Last Admin: 07/15/21 23:04 Dose: 10 mg Documented by: LADONNA Hydromorphone HCl (Hydromorphone 0.5 Mg Inj) 0.5 mg IV Q6H PRN PRN Reason: Pain, Moderate (4-6) Last Admin: 07/15/21 23:54 Dose: 0.5 mg Documented by: LADONNA Sodium Chloride (Normal Saline 0.9%) 1,000 mls @ 100 mls/hr IV CONT KIKO Last Admin: 07/16/21 06:47 Dose: 250 mls/hr Documented by: Infusion: 07/16/21 06:47 Dose: 250 mls/hr Documented by: Infusion: 07/16/21 05:35 Dose: 250 mls/hr Documented by: Infusion: 07/16/21 05:13 Dose: 100 mls/hr Documented by: Infusion: 07/16/21 04:35 Dose: 999 mls/hr Documented by: Admin: 07/16/21 04:34 Dose: 100 mls/hr Documented by: Infusion: 07/16/21 04:34 Dose: 100 mls/hr Documented by: Admin: 07/15/21 21:54 Dose: 100 mls/hr Documented by: LADONNA Sodium Chloride (Normal Saline 0.9%) 1,000 mls @ 250 mls/hr IV CONT KIKO Stop: 07/16/21 09:44 Last Admin: 07/16/21 06:51 Dose: Not Given Documented by: LADONNA Insulin Glargine (Insulin Glargine 100 Unit/Ml 3ml Pen) 25 unit SUBCUT 2100 [facility] Last Admin: 07/15/21 23:03 Dose: 25 unit Documented by: LADONNA Cosigned by: [email or web address] Insulin Human Lispro (Insulin Lispro 100 Unit/Ml 3ml Vial) 0 unit SUBCUT ACHS [facility]; Protocol Last Admin: 07/15/21 23:01 Dose: 3 unit Documented by: LADONNA Cosigned by: [email or web address] Levothyroxine Sodium (Levothyroxine 100 Mcg Tablet) 100 mcg PO DAILY@0600 [facility] Last Admin: 07/16/21 06:50 Dose: 100 mcg Documented by: LADONNA Memantine (Memantine Hcl 5 Mg Tablet) 5 mg PO BEDTIME KIKO Last Admin: 07/15/21 23:03 Dose: 5 mg Documented by: LADONNA Naloxone HCl (Naloxone 0.4 Mg/Ml Vial) 0.2 mg IV Q2MIN PRN PRN Reason: Opiate Reversal Ondansetron HCl (Ondansetron 4 Mg/2 Ml Inj) 4 mg IV Q6HR PRN PRN Reason: Nausea And Vomiting Last Admin: 07/15/21 23:18 Dose: 4 mg Documented by: LADONNA Discontinued Medications Albuterol (Albuterol 2.5 Mg/3 Ml Neb (Adult)) 20 mg INH NOW ONE Stop: 07/15/21 17:32 Last Admin: 07/15/21 18:06 Dose: 20 mg Documented by: MULU Dextrose (Dextrose 50 % In Water 25 Gm/50 Ml Syringe) 25 gm IV NOW ONE Stop: 07/15/21 17:30 Last Admin: 07/15/21 18:10 Dose: 25 gm Documented by: KIKE Dextrose (Dextrose 50 % In Water 25 Gm/50 Ml Syringe) 25 gm IV NOW ONE Stop: 07/15/21 18:20 Last Admin: 07/15/21 17:30 Dose: 25 gm Documented by: KIKE Sodium Chloride (Normal Saline 0.9%) 1,000 mls @ 1,000 mls/hr IV BOLUS ONE Stop: 07/15/21 18:21 Last Admin: 07/15/21 19:38 Dose: Not Given Documented by: AIMEE Calcium Gluconate 4.65 meq/ (Sodium Chloride) 60 mls @ 180 mls/hr IV NOW ONE Stop: 07/15/21 17:47 Last Infusion: 07/15/21 19:16 Dose: 0 mls/hr Documented by: Admin: 07/15/21 18:09 Dose: 180 mls/hr Documented by: KIKE Ceftriaxone Sodium 1,000 mg/ (Sodium Chloride) 100 mls @ 200 mls/hr IV NOW ONE Stop: 07/15/21 19:55 Last Admin: 07/15/21 21:17 Dose: 200 mls/hr Documented by: LADONNA Sodium Chloride (Normal Saline 0.9%) 500 mls @ 1,000 mls/hr IV BOLUS ONE Stop: 07/16/21 05:47 Last Admin: 07/16/21 05:41 Dose: Not Given Documented by: LADONNA Insulin Human Regular (Insulin Regular 100 Unit/Ml 3 Ml Vial) 5 unit IV NOW ONE Stop: 07/15/21 17:30 Last Admin: 07/15/21 18:11 Dose: 5 unit Documented by: KIKE Cosigned by: PARAS Ketorolac Tromethamine (Ketorolac 30 Mg/Ml Vial) 15 mg IV NOW ONE Stop: 07/15/21 15:37 Last Admin: 07/15/21 17:02 Dose: 15 mg Documented by: PARAS Ondansetron HCl (Ondansetron 4 Mg/2 Ml Inj) 4 mg IV NOW ONE Stop: 07/15/21 15:37 Last Admin: 07/15/21 17:02 Dose: 4 mg Documented by: PARAS Sodium Polystyrene Sulfonate (Sodium Polystyrene Sulfon/Sorb 15 Gm/60 Ml Cup) 30 gm ND NOW ONE Stop: 07/15/21 17:33 Last Admin: 07/15/21 18:10 Dose: 15 gm Documented by: KIKE Sodium Polystyrene Sulfonate (Sodium Polystyrene Sulfon/Sorb 15 Gm/60 Ml Cup) 30 gm PO NOW ONE Stop: 07/15/21 22:04 Last Admin: 07/16/21 00:12 Dose: 30 gm Documented by: LADONNA Vital Signs Vital signs: Vital Signs - 8 hr 07/15/21 14:31 07/15/21 16:00 07/15/21 16:27 Temperature 97.6 F Pulse Rate 59 L 80 77 Respiratory Rate 22 20 19 Blood Pressure 117/58 L 106/54 L Pulse Oximetry 94 98 97 07/15/21 16:30 07/15/21 16:45 07/15/21 17:00 Temperature Pulse Rate 75 78 77 Respiratory Rate 18 17 22 Blood Pressure 110/53 L Pulse Oximetry 98 98 92 07/15/21 17:01 07/15/21 17:25 07/15/21 17:30 Temperature Pulse Rate 79 75 75 Respiratory Rate 26 H 19 20 Blood Pressure 105/55 L Pulse Oximetry 98 76 L 96 07/15/21 17:45 07/15/21 17:46 07/15/21 18:00 Temperature Pulse Rate 77 77 79 Respiratory Rate 26 H 21 19 Blood Pressure 125/59 L Pulse Oximetry 92 92 95 07/15/21 18:15 07/15/21 18:30 07/15/21 18:45 Temperature Pulse Rate 76 78 75 Respiratory Rate 19 20 20 Blood Pressure Pulse Oximetry 92 99 93 07/15/21 19:00 07/15/21 19:15 Temperature Pulse Rate 75 75 Respiratory Rate 18 23 Blood Pressure Pulse Oximetry 99 93 MDM - Abdominal Pain <Can Mac PA-C - Last Filed: 07/15/21 20:03> Medical Records Attestation: I reviewed the patient's medical records. Lab Data Lab results narrative: BUN 136, creatinine 2.24, potassium 7.4. UA positive for UTI Result diagrams: 07/16/21 04:43 07/16/21 04:43 Labs: Lab Results 07/15/21 07/15/21 07/15/21 Range/Units 16:25 16:25 17:18 WBC 11.1 H (4.5-11.0) X10^3/uL RBC 5.21 H (4.0-5.2) X10^6/uL Hgb 14.6 (12.0-16.0) g/dL Hct 45.1 (36-46) % MCV 86.7 (80-100) fL MCH 28.0 (26-34) PG MCHC 32.4 (30-36) % RDW 15.8 H (11.6-14.8) % Plt Count 320 (150-400) X10^3/uL Neut % (Auto) 73.5 (50-75) % Lymph % (Auto) 17.2 L (25-40) % [place] % (Auto) 7.8 (3-14) % Eos % (Auto) 1.0 L (2-4) % Baso % (Auto) 0.5 (0-2) % Neut # (Auto) 8200 H (9145-1280) /uL Lymph # (Auto) 1900 (7128-6310) /uL [place] # (Auto) 900 (0-900) /uL Eos # (Auto) 100 (0-450) /uL Baso # (Auto) 100 (0-100) /uL Sodium 133 L (137-145) mmol/L Potassium 7.5 H* (3.4-5.1) mmol/L Chloride 109 H (98-107) mmol/L Carbon Dioxide 15 L (22-32) mmol/L BUN 136 H* (7-17) mg/dL Creatinine 2.24 H (0.52-1.04) mg/dL Estimated GFR 20.9 L (>60) mL/min BUN/Creatinine Ratio 60.7 H (6-22) Glucose 97 (80-110) mg/dL Calcium 9.9 (8.4-10.2) mg/dL Total Bilirubin 0.6 (0.2-1.3) mg/dL AST 45 H (14-36) IU/L ALT 16 (<35) IU/L Alkaline Phosphatase 153 H (38-126) U/L Total Protein 8.9 H (6.3-8.2) g/dL Albumin 4.7 (3.5-5.0) g/dL Globulin 4.2 H (1.7-4.1) g/dL Albumin/Globulin Ratio 1.1 (1.0-2.8) Lipase 64 (23-300) U/L Urine RBC None seen (0-5/HPF) Urine WBC >100/hpf H (0-5/HPF) Urine Bacteria Many (>30) H (None) Ur Culture Indicated? Specimen cultured SARS-CoV-2 (PCR) (Negative) 07/15/21 Range/Units 17:30 WBC (4.5-11.0) X10^3/uL RBC (4.0-5.2) X10^6/uL Hgb (12.0-16.0) g/dL Hct (36-46) % MCV (80-100) fL MCH (26-34) PG MCHC (30-36) % RDW (11.6-14.8) % Plt Count (150-400) X10^3/uL Neut % (Auto) (50-75) % Lymph % (Auto) (25-40) % [place] % (Auto) (3-14) % Eos % (Auto) (2-4) % Baso % (Auto) (0-2) % Neut # (Auto) (7224-7759) /uL Lymph # (Auto) (3169-5808) /uL [place] # (Auto) (0-900) /uL Eos # (Auto) (0-450) /uL Baso # (Auto) (0-100) /uL Sodium (137-145) mmol/L Potassium (3.4-5.1) mmol/L Chloride (98-107) mmol/L Carbon Dioxide (22-32) mmol/L BUN (7-17) mg/dL Creatinine (0.52-1.04) mg/dL Estimated GFR (>60) mL/min BUN/Creatinine Ratio (6-22) Glucose (80-110) mg/dL Calcium (8.4-10.2) mg/dL Total Bilirubin (0.2-1.3) mg/dL AST (14-36) IU/L ALT (<35) IU/L Alkaline Phosphatase (38-126) U/L Total Protein (6.3-8.2) g/dL Albumin (3.5-5.0) g/dL Globulin (1.7-4.1) g/dL Albumin/Globulin Ratio (1.0-2.8) Lipase (23-300) U/L Urine RBC (0-5/HPF) Urine WBC (0-5/HPF) Urine Bacteria (None) Ur Culture Indicated? SARS-CoV-2 (PCR) Negative (Negative) Point of care testing: Point of Care Testing Glucose POC 81 Urine Dip Bedside Urine Glucose Negative Bedside Urine Bilirubin - Negative Bedside Urine Ketone - Negative Urine Specific [place] 1.030 Bedside Urine Occult Blood +/- Bedside Urine pH 6.0 Bedside Urine Protein - Negative Bedside Urine Urobilinogen - Negative Bedside Urine Nitrite - Negative Bedside Urine Leukocytes ++ [address] scan - abdomen/pelvis: Radiologist's Impression: PROCEDURE:? CT ABDOMEN PELVIS WO CON ? INDICATIONS:? Abdominal pain ? TECHNIQUE:? Noncontrast 5 mm thick sections acquired from the diaphragms to the symphysis.? 5 mm coronal and sagittal reformats were then performed.? For radiation dose reduction, the following was used:? automated exposure control, adjustment of mA and/or kV according to patient size.? ? COMPARISON:? None. ? FINDINGS:? Image quality:? Excellent.? ? ABDOMEN:? Lung bases:? Lung bases are clear.? Heart size is normal.? ? Solid organs:? Liver is normal in size.? Gallbladder is normal .? Pancreas is normal in contours.? Spleen is normal in size.? No adrenal nodules.? Kidneys are normal in size, without hydronephrosis or nephrolithiasis.? ? Peritoneum and bowel:? Unenhanced bowel loops demonstrate normal wall thickness and caliber.? No free fluid or air.? No significant diverticula.? No diverticulitis. ? Nodes and vessels:? No retroperitoneal or mesenteric adenopathy by size criteria.? Aorta and inferior vena cava are normal in caliber.? ? Miscellaneous:? No ventral hernias.? ? ? PELVIS:? Genitourinary:? Bladder wall thickness is normal.? ? Miscellaneous:? No inguinal hernias or adenopathy.? ? Bones:? Post kyphoplasty changes are seen at L1.? No suspicious bony lesions.? No vertebral body compression fractures.? ? IMPRESSION:? No acute abdominal or pelvic abnormality. ? ? Dictated by: Rayshawn Mari M.D. on 07/15/2021 at 17:45 ? ? Approved by: Rayshawn Mari M.D. on 07/15/2021 at 17:50 ? ECG Data Interpretation: Ventricular paced rhythm with PACs with aberrant conduction MDM Narrative Medical decision making narrative: 80-year-old female with past medical history hypertension, CHF, type 2 diabetes, AFib, renal artery stenosis, status post pacemaker, dementia presents to the ED with 1 month of worsening abdominal pain. Concern for diverticulitis versus other intra-abdominal infection versus small-bowel obstruction versus UTI versus urolithiasis. Will order EKG, chest x-ray, labs, lipase, coags, UA, CT abdomen pelvis. Will reassess. Potassium elevated to 7.5. BUN 136. Creatinine 2.24. Will treat hyperkalemia with calcium gluconate, insulin, D50, albuterol, Kayexalate. Will recheck chemistry in 2 hours. Will reassess. UA positive for UTI. Will treat with ceftriaxone. Consulted hospitalist Dr. Cordoba to admit patient. Patient was accepted as inpatient. <Jelani Houser, - Last Filed: 07/16/21 07:01> Lab Data Labs: Lab Results 07/15/21 07/15/21 07/15/21 Range/Units 16:25 16:25 17:18 WBC 11.1 H (4.5-11.0) X10^3/uL RBC 5.21 H (4.0-5.2) X10^6/uL Hgb 14.6 (12.0-16.0) g/dL Hct 45.1 (36-46) % MCV 86.7 (80-100) fL MCH 28.0 (26-34) PG MCHC 32.4 (30-36) % RDW 15.8 H (11.6-14.8) % Plt Count 320 (150-400) X10^3/uL Neut % (Auto) 73.5 (50-75) % Lymph % (Auto) 17.2 L (25-40) % [place] % (Auto) 7.8 (3-14) % Eos % (Auto) 1.0 L (2-4) % Baso % (Auto) 0.5 (0-2) % Neut # (Auto) 8200 H (7550-3505) /uL Lymph # (Auto) 1900 (9754-3491) /uL [place] # (Auto) 900 (0-900) /uL Eos # (Auto) 100 (0-450) /uL Baso # (Auto) 100 (0-100) /uL Sodium 133 L (137-145) mmol/L Potassium 7.5 H* (3.4-5.1) mmol/L Chloride 109 H (98-107) mmol/L Carbon Dioxide 15 L (22-32) mmol/L BUN 136 H* (7-17) mg/dL Creatinine 2.24 H (0.52-1.04) mg/dL Estimated GFR 20.9 L (>60) mL/min BUN/Creatinine Ratio 60.7 H (6-22) Glucose 97 (80-110) mg/dL Calcium 9.9 (8.4-10.2) mg/dL Total Bilirubin 0.6 (0.2-1.3) mg/dL AST 45 H (14-36) IU/L ALT 16 (<35) IU/L Alkaline Phosphatase 153 H (38-126) U/L Total Protein 8.9 H (6.3-8.2) g/dL Albumin 4.7 (3.5-5.0) g/dL Globulin 4.2 H (1.7-4.1) g/dL Albumin/Globulin Ratio 1.1 (1.0-2.8) Lipase 64 (23-300) U/L Urine RBC None seen (0-5/HPF) Urine WBC >100/hpf H (0-5/HPF) Urine Bacteria Many (>30) H (None) Ur Culture Indicated? Specimen cultured SARS-CoV-2 (PCR) (Negative) 07/15/21 Range/Units 17:30 WBC (4.5-11.0) X10^3/uL RBC (4.0-5.2) X10^6/uL Hgb (12.0-16.0) g/dL Hct (36-46) % MCV (80-100) fL MCH (26-34) PG MCHC (30-36) % RDW (11.6-14.8) % Plt Count (150-400) X10^3/uL Neut % (Auto) (50-75) % Lymph % (Auto) (25-40) % [place] % (Auto) (3-14) % Eos % (Auto) (2-4) % Baso % (Auto) (0-2) % Neut # (Auto) (6822-7822) /uL Lymph # (Auto) (3747-9117) /uL [place] # (Auto) (0-900) /uL Eos # (Auto) (0-450) /uL Baso # (Auto) (0-100) /uL Sodium (137-145) mmol/L Potassium (3.4-5.1) mmol/L Chloride (98-107) mmol/L Carbon Dioxide (22-32) mmol/L BUN (7-17) mg/dL Creatinine (0.52-1.04) mg/dL Estimated GFR (>60) mL/min BUN/Creatinine Ratio (6-22) Glucose (80-110) mg/dL Calcium (8.4-10.2) mg/dL Total Bilirubin (0.2-1.3) mg/dL AST (14-36) IU/L ALT (<35) IU/L Alkaline Phosphatase (38-126) U/L Total Protein (6.3-8.2) g/dL Albumin (3.5-5.0) g/dL Globulin (1.7-4.1) g/dL Albumin/Globulin Ratio (1.0-2.8) Lipase (23-300) U/L Urine RBC (0-5/HPF) Urine WBC (0-5/HPF) Urine Bacteria (None) Ur Culture Indicated? SARS-CoV-2 (PCR) Negative (Negative) Point of care testing: Point of Care Testing Glucose POC 81 Urine Dip Bedside Urine Glucose Negative Bedside Urine Bilirubin - Negative Bedside Urine Ketone - Negative Urine Specific [place] 1.030 Bedside Urine Occult Blood +/- Bedside Urine pH 6.0 Bedside Urine Protein - Negative Bedside Urine Urobilinogen - Negative Bedside Urine Nitrite - Negative Bedside Urine Leukocytes ++ 125 Esterase Discharge Plan Departure Patient Disposition: Admitted As Inpatient Clinical Impression: Acute uremia Admit Date/Time: 07/15/21 19:36 Admit Provider: Eduardo Cordoba <Jelani Houser, DO - Last Filed: 07/16/21 07:01> Cosign ED Attending Cosignature Attestation: Dr Houser Co-Sign Statement: I was available for consultation during this patient's emergency department visit. This chart is signed by myself for administrative purposes only. I did not have direct contact with this patient during this visit. They were seen independently by the APC.
[2021-07-15 17:26] LABS: HEMOLYSIS 32 (0-50)
[2021-07-15 17:27] LABS: Potassium 7.5 mmol/L (3.4-5.1)
[2021-07-15] MEDS: DEXTROSE 50 % IN WATER 25 GM/50 ML SYRINGE IV ×2 (17:30→18:10)
[2021-07-15 18:03] LABS: COVID19 -Nasal RAPID Negative (Negative)
[2021-07-15] MEDS: ALBUTEROL 2.5 MG/3 ML NEB (ADULT) 20 MG INH (18:06)
[2021-07-15] MEDS: CALCIUM GLUCONATE 4.65 MEQ in SODIUM CHLORIDE 0.9% 50 ML 180 ML IV (18:09)
[2021-07-15] MEDS: SODIUM POLYSTYRENE SULFON/SORB 15 GM/60 ML CUP 30 GM PR (18:10)
[2021-07-15] MEDS: INSULIN REGULAR 100 UNIT/ML 3 ML VIAL IV (18:11)
[2021-07-15 19:11] LABS: Bacteria Urine Many (>30); Culture Indicated Urine Specimen Cultured; RBC Urine None Seen (0-5/HPF); WBC Urine >100/HPF (0-5/HPF)
[2021-07-15 20:09] LABS: Calcium 9.9 mg/dL (8.4-10.2); Carbon Dioxide 12 mmol/L (22-32); Chloride 107 mmol/L (98-107); Estimated Glomerular Filt Rate 19.7 mL/min (>60); Glucose 383 mg/dL (80-110); HEMOLYSIS < 15 (0-50); Sodium 130 mmol/L (137-145)
[2021-07-15 20:20] LABS: BUN Creatinine Ratio 55.1 (6-22)
[2021-07-15 20:21] LABS: Potassium 6.4 mmol/L (3.4-5.1)
[2021-07-15 20:22] LABS: Blood Urea Nitrogen 130 mg/dL (7-17)
--- NOTE | 2021-07-15 20:35 | PC.NURSE ---
Assisted patient to bathroom via wheelchair. Patient very weak, one person assistance to and from [facility].
[2021-07-15 20:52] LABS: pH VBG 7.13 (7.33-7.43)
[2021-07-15 20:53] LABS: HCO3 VBG 16 mmol/L (23-28); Oxygen Saturation VBG 12 % (70-75); PCO2 VBG 47.4 mmHg (45-50); PO2 VBG 15 mmHg (35-45); Total CO2 VBG 17 mmol/L (24-29)
[2021-07-15] MEDS: cefTRIAXone 1,000 MG in SODIUM CHLORIDE 0.9% 100 ML 200 ML IV (21:17)
[2021-07-15] MEDS: SODIUM CHLORIDE 0.9% 1,000 ML 100 ML IV (21:54)
[2021-07-15] MEDS: INSULIN LISPRO 100 UNIT/ML 3ML VIAL SUBCUT (23:01)
[2021-07-15] MEDS: MEMANTINE HCL 5 MG TABLET PO (23:03)
[2021-07-15] MEDS: INSULIN GLARGINE 100 UNIT/ML 3ML PEN 25 UNIT SUBCUT (23:03)
[2021-07-15] MEDS: ESCITALOPRAM 10 MG TABLET PO (23:04)
[2021-07-15] MEDS: HYDROMORPHONE 0.5 MG INJ IV (23:54)
[2021-07-16] VITALS (26 sets, daily range): BP systolic 74–104; BP diastolic 40–55; PULSE 74–88; RESP 16–20; TEMP 36.6–36.9; O2SAT 94–98
[2021-07-16] MEDS: SODIUM POLYSTYRENE SULFON/SORB 15 GM/60 ML CUP 30 GM PO (00:12)
--- NOTE | 2021-07-16 02:19 | PC.NURSE ---
Addendum entered by Izabella Holland R.N. 07/16/21 05:44: 0410 Dr Cordoba notified of patient having an extra large, loose BM and BP 74/52 (54). HR 76, Paced Rhythm. 500 ml NS bolus initiated. Dr. Cordoba ordered same. No additional orders received. Patient's IV infiltrated and new IV restarted. Bolus complete with BP 90/50 (65). HR 75. V paced. BP 87/45(61) @ 0540. Dr. Cordoba notified of current BP. Orders received to run IVF @ 250 ml/hr for one liter, and then reduce rate to 125/hr. Patient comfortable and denies pain. Original Note: Patient admitted to Room 227. Patient pleasantly confused. Incontinent of loose stool. Kayla care given and yellow gown placed. Patient cooperative of care and states, This is a very nice hotel with good service. Patient is a 2 person assist to the BSC and needs cueing. Medicated for 5/10 abd pain with Dilaudid and Zofran for nausea per EMAR. Patient able to take meds and sips of water after medicating with Zofran. Patient sleeping after Dilaudid. Daughter, Rina, is in room with patient.
[2021-07-16] MEDS: SODIUM CHLORIDE 0.9% 1,000 ML 100 ML IV (04:34)
[2021-07-16 05:21] LABS: Add Manual Diff / Slide Review NO; Basophils Absolute Auto 0 /uL (0-100); Basophils Percent Auto 0.2 % (0-2); Eosinophils Absolute Auto 100 /uL (0-450); Eosinophils Percent Auto 0.4 % (2-4); Hematocrit 40.5 % (36-46); Hemoglobin 12.8 g/dL (12.0-16.0); Lymphocytes Absolute Auto 1100 /uL (1100-4500); Lymphocytes Percent Auto 8.1 % (25-40); Mean Corpuscular HGB Conc 31.6 % (30-36); Mean Corpuscular Hemoglobin 27.6 PG (26-34); Mean Corpuscular Volume 87.5 fL (80-100); Monocytes Absolute Auto 1500 /uL (0-900); Monocytes Percent Auto 10.7 % (3-14); Neutrophils Absolute Auto 11300 /uL (1500-7000); Neutrophils Percent Auto 80.6 % (50-75); Platelet Count 269 X10^3/uL (150-400); Red Blood Cell Count 4.63 X10^6/uL (4.0-5.2); Red Cell Distribution Width 15.5 % (11.6-14.8)
[2021-07-16 05:27] LABS: Calcium 8.9 mg/dL (8.4-10.2); Carbon Dioxide 15 mmol/L (22-32); Chloride 115 mmol/L (98-107); Estimated Glomerular Filt Rate 17.3 mL/min (>60); Glucose 110 mg/dL (80-110); HEMOLYSIS < 15 (0-50); Sodium 137 mmol/L (137-145)
[2021-07-16 05:36] LABS: BUN Creatinine Ratio 47.7 (6-22); Potassium 5.8 mmol/L (3.4-5.1)
[2021-07-16 05:37] LABS: Blood Urea Nitrogen 126 mg/dL (7-17)
[2021-07-16] MEDS: SODIUM CHLORIDE 0.9% 1,000 ML 250 ML IV (06:47)
[2021-07-16] MEDS: LEVOTHYROXINE 100 MCG TABLET PO (06:50)
--- NOTE | 2021-07-16 08:11 | PM.HP.1 ---
History of Present Illness History of Present Illness Date Patient Seen: 07/16/21 Time Patient Seen: 08:13 Chief complaint: Not Feeling Well, Stomach Issues Narrative: 80-year-old female with dementia who lives at home with her patient has a history of diabetes type 2 insulin dependent systolic heart failure cardiac pacemaker hypertension cerebrovascular accident. Patient lives at home with her . History is obtained from the as well from the daughter who is at the bedside with her. Over the last few days daughter spends every day visiting noticed that her mom became a little bit more tired and sleeping. They recently had an anniversary and she was sleeping 18-20 hours a day. They became acutely concerned over the last 24 hours she began to have some abdominal pain pain which was quite severe at. They did not notice any fevers or chills. Maybe there was some increasing weakness. She did have any shortness of breath and was not complaining of any chest pain. Due to the abdominal pain she was brought to the emergency department for evaluation. Laboratory testing ensued his CT scan was ensued and patient was found to be in acute renal failure with some hyperkalemia as CT scan of her abdomen was done which is fairly unremarkable. She was given appropriate treatment of fluids and medication for her hyperkalemia and we are admit asked to admit the patient to the hospital. On evaluation at the bedtime patient is very sleepy. She answers questions and is arousable. She is disoriented to place and time. Patient History Medical History Atrial fibrillation (09/20/10) Bilateral shoulder pain Bipolar disorder Bradycardia Cardiomyopathy Chronic diarrhea (06/10/16) Cognitive decline Controlled type 2 diabetes mellitus (09/20/10) Essential hypertension (09/20/10) Fatigue Head contusion History of Graves' disease History of placenta previa Irritable bowel syndrome Minor head injury without loss of consciousness Neuropathy of both feet Renal artery stenosis (09/20/10) Retinal scar Rheumatoid arthritis Right leg pain Sprain of left shoulder Stye Systolic congestive heart failure (09/20/10) Thyroid nodule Vision disorder Weakness Surgical History Anesthesia History of hip replacement History of knee replacement History of partial surgical removal of colon (06/10/16) Status post dilation and curettage Family & Social History Social History: household members spouse Prior Living Arrangements RV Safety & Behavioral: Feels Safe in Current Yes Environment Been Physically Hurt or No Threatened By a Person Suicidal Ideation Description None Suicide Plan Description No Plan Tobacco & Substance use: Smoking Status Former smoker alcohol intake former alcohol intake frequency 0-2 drinks per day Substance Use Type does not use Meds Home Medications and Allergies Home Medications Medication Instructions Recorded Confirmed Type acetaminophen 325 mg tablet 650 mg PO Q6HR PRN #30 tab 05/31/19 03/11/21 Rx insulin syringe-needle U-100 1 mL See Rx Instructions .ROUTE 09/10/20 07/16/21 Rx 30 gauge x 1/2 (BD Insulin .COMPLEX #100 ea Syringe Ultra-Fine) levothyroxine 100 mcg tablet See Rx Instructions .ROUTE 10/26/20 03/11/21 Rx .COMPLEX #90 tab escitalopram oxalate 10 mg tablet 10 mg PO .HS #90 tab 11/06/20 03/11/21 Rx insulin glargine 100 unit/mL 40 unit (0.4 mL) SUBCUT DAILY #10 11/19/20 03/11/21 Rx subcutaneous solution (Lantus ml U-100 Insulin) DISABLED P[place]ING [place]MIT #1 ea 03/11/21 07/16/21 Rx spironolactone 25 mg tablet 25 mg PO DAILY #90 tab 03/18/21 Rx lisinopril 20 mg tablet 20 mg PO DAILY #90 tab 06/10/21 06/10/21 Rx potassium chloride 20 mEq 20 meq PO BID #180 tab 06/10/21 06/10/21 Rx tablet,extended release (K-Tab) loperamide 2 mg capsule 2 mg PO .EVERY 1-2 HOURS PRN #60 06/19/21 Rx cap memantine 5 mg tablet (Namenda) 5 mg PO .HS #90 tab 06/24/21 Rx furosemide 40 mg tablet See Rx Instructions .ROUTE 07/08/21 Rx .COMPLEX #180 tab Allergies Allergy/AdvReac Type Severity Reaction Status Date / Time egg Allergy Severe weakness Verified 03/11/21 12:11 on the right side of body after vaccine Anesthetics - Amide Type - Allergy Unknown Verified 03/11/21 12:11 Select A [ANESTHETICS - AMIDE TYPE] codeine [CODEINE] Allergy Unknown Verified 03/11/21 12:11 lidocaine [From XYLOCAINE] Allergy Unknown WHEN HAD Verified 03/11/21 12:11 TEETH WORKED ON lisinopril [LISINOPRIL] Allergy Unknown Verified 03/11/21 12:11 milk [MILK] Allergy Unknown Verified 03/11/21 12:11 morphine [MORPHINE] Allergy Unknown Verified 03/11/21 12:11 oxycodone [OXYCODONE] Allergy Unknown Verified 03/11/21 12:11 Penicillins [PENICILLINS] Allergy Unknown Verified 03/11/21 12:11 influenza virus vaccine, Allergy weakness Verified 03/11/21 12:11 specific on the right side of body after vaccine Exam Vital Signs (past 8 hours): - 07/16/21 01:38 07/16/21 02:25 07/16/21 04:00 Pulse Rate 76 Respiratory Rate 20 Blood Pressure 74/42 L Pulse Oximetry 94 96 94 07/16/21 04:30 07/16/21 05:00 07/16/21 05:20 Pulse Rate 76 76 77 Respiratory Rate 20 20 20 Blood Pressure 77/48 L 87/50 L 81/44 L Pulse Oximetry 94 94 07/16/21 05:40 07/16/21 06:00 07/16/21 06:20 Pulse Rate 75 88 74 Respiratory Rate 20 20 Blood Pressure 81/44 L 88/51 L 88/49 L Pulse Oximetry 07/16/21 07:00 Pulse Rate 78 Respiratory Rate 20 Blood Pressure 88/45 L Pulse Oximetry Oxygen Delivery Method Room Air Oxygen Flow Rate 0 Narrative Exam Narrative: Gen.: Patient is arousable disoriented HEENT: Pupils equal round and reactive or mucosa is moist neck is supple Cardio: S1-S2 some irregular rhythm systolic murmur present Respiratory: Normal respiratory effort some decreased breath sounds at bases Abdomen: Soft nontender obese no organomegaly Extremities: Warm dry perfused moving all extremities Objective Labs Result Diagrams: 07/16/21 04:43 07/16/21 04:43 Labs: Laboratory Results - last 24 hr 07/15/21 07/15/21 07/15/21 16:25 16:25 17:18 WBC 11.1 H RBC 5.21 H Hgb 14.6 Hct 45.1 MCV 86.7 MCH 28.0 MCHC 32.4 RDW 15.8 H Plt Count 320 Neut % (Auto) 73.5 Lymph % (Auto) 17.2 L [place] % (Auto) 7.8 Eos % (Auto) 1.0 L Baso % (Auto) 0.5 Neut # (Auto) 8200 H Lymph # (Auto) 1900 [place] # (Auto) 900 Eos # (Auto) 100 Baso # (Auto) 100 VBG pH VBG pCO2 VBG pO2 VBG HCO3 VBG Total CO2 VBG O2 Saturation VBG Base Excess Sodium 133 L Potassium 7.5 H* Chloride 109 H Carbon Dioxide 15 L BUN 136 H* Creatinine 2.24 H Estimated GFR 20.9 L BUN/Creatinine Ratio 60.7 H Glucose 97 Calcium 9.9 Total Bilirubin 0.6 AST 45 H ALT 16 Alkaline Phosphatase 153 H Total Protein 8.9 H Albumin 4.7 Globulin 4.2 H Albumin/Globulin Ratio 1.1 Lipase 64 Urine RBC None seen Urine WBC >100/hpf H Urine Bacteria Many (>30) H Ur Culture Indicated? Specimen cultured Nasal Screen MRSA (PCR) SARS-CoV-2 (PCR) 07/15/21 07/15/21 07/15/21 17:30 19:50 20:38 WBC RBC Hgb Hct MCV MCH MCHC RDW Plt Count Neut % (Auto) Lymph % (Auto) [place] % (Auto) Eos % (Auto) Baso % (Auto) Neut # (Auto) Lymph # (Auto) [place] # (Auto) Eos # (Auto) Baso # (Auto) VBG pH 7.13 L* VBG pCO2 47.4 VBG pO2 15 L VBG HCO3 16 L VBG Total CO2 17 L VBG O2 Saturation 12 L VBG Base Excess -13.0 L Sodium 130 L Potassium 6.4 H* Chloride 107 Carbon Dioxide 12 L BUN 130 H* Creatinine 2.36 H Estimated GFR 19.7 L BUN/Creatinine Ratio 55.1 H Glucose 383 H D Calcium 9.9 Total Bilirubin AST ALT Alkaline Phosphatase Total Protein Albumin Globulin Albumin/Globulin Ratio Lipase Urine RBC Urine WBC Urine Bacteria Ur Culture Indicated? Nasal Screen MRSA (PCR) SARS-CoV-2 (PCR) Negative 07/15/21 07/16/21 07/16/21 23:22 04:43 04:43 WBC 14.0 H RBC 4.63 Hgb 12.8 Hct 40.5 MCV 87.5 MCH 27.6 MCHC 31.6 RDW 15.5 H Plt Count 269 Neut % (Auto) 80.6 H Lymph % (Auto) 8.1 L [place] % (Auto) 10.7 Eos % (Auto) 0.4 L Baso % (Auto) 0.2 Neut # (Auto) 50480 H Lymph # (Auto) 1100 [place] # (Auto) 1500 H Eos # (Auto) 100 Baso # (Auto) 0 VBG pH VBG pCO2 VBG pO2 VBG HCO3 VBG Total CO2 VBG O2 Saturation VBG Base Excess Sodium 137 Potassium 5.8 H Chloride 115 H Carbon Dioxide 15 L BUN 126 H* Creatinine 2.64 H Estimated GFR 17.3 L BUN/Creatinine Ratio 47.7 H Glucose 110 D Calcium 8.9 Total Bilirubin AST ALT Alkaline Phosphatase Total Protein Albumin Globulin Albumin/Globulin Ratio Lipase Urine RBC Urine WBC Urine Bacteria Ur Culture Indicated? Nasal Screen MRSA (PCR) Negative for mrsa SARS-CoV-2 (PCR) Assessment & Plan Assessment and plan (1) Acute kidney failure: Status: Acute Plan Acute kidney injury on top of chroni stage 3 renal failure patient admitted the hospital with acute kidney injury and electrolyte abnormalities. Combination of potential causes include infection medication and dehydration. Patient was given appropriate treatment for hyperkalemia in the emergency department including dextrose and glucose and Kayexalate and IV fluids. Her potassium is trending down nicely. Patient still has quite a significant elevation of her BUN and creatinine and current BUN and creatinine has continued to go up. We will continue normal saline fluids at 125 cc/hour. She did have a bolus of normal saline in the emergency department. Will closely monitor electrolytes and blood pressure and adjust electrolytes and fluid status is needed for the patient. Will be careful not to over hydrate as patient does have a history of systolic heart failure her last ejection fraction showed she had a this heart ejection fraction of 20-25%. Patient has profound hyperkalemia. Patient's potassium levels come down with Kayexalate glucose and dextrose and IV fluids. Will continue to monitor closely for ongoing hyperkalemia and see if he can positive improvement of this. Acute urinary tract infection. Patient's urinalysis shows she has infection. Will wait for culture. Will treat with broad-spectrum antibiotics and renally dose ceftriaxone. Will follow with culture results. Acute metabolic encephalopathy patient has encephalopathy due to underlying renal failure. Patient is confused disoriented and somewhat sleepy. Will continue to monitor this and hopefully improvement with improved renal function. Class for acute severe systolic heart failure. Patient has a ejection fraction of 20-25%. Patient's fluid status is tenuous due to needing fluids for kidney function. Will monitor closely for fluid overload status. Patient has a pacemaker in place. Monitor closely signs of fluid overloaded renal function. Patient is a no code. Diabetes type 2. Patient will be placed on insulin will have insulin sliding scale coverage as needed monitor closely for signs of hyperglycemia. Hypothyroidism patient is on thyroid replacement Dimension patient with baseline cognitive decline and dementia. Slow progression is worse. She is on memantine and continue that the hospital Code status patient is a no code. Reviewed code status with daughter today. She confirms pulsed form. Disposition and plan. Patient will be admitted the hospital for multiple days. Discharge planning for alf facility. Time Spent With Patient Critical Care time: I spent a total of [] minutes of critical care time on this patient's care today; this time is exclusive of procedural time. Quality VTE Deep Vein Thrombosis/Pulmonary Embolism Present on Admission: No
[2021-07-16] MEDS: cefTRIAXone 500 MG in DEXTROSE 5 % IN WATER 50 ML 100 ML IV (08:57)
--- NOTE | 2021-07-16 11:47 | DI.ECHO.S_ITS ---
[facility] +---------+ [facility] +---------+ : : [address] : : : : [phone] : : : : Phone: [phone] Echocardiogram Report + + :Name: ABRAN BETANCOURT Study Date: 07/16/2021 Height: 61 in : :[facility] ReadingLocation: Weight: 143 lb : : Gender: Female BSA: 1.6 m2 : :: 1940 Age: 80 yrs BP: 104/55 mmHg: :Reason For Study: CONGESTIVE HEART FAILURE : :Ordering Physician: QUINN, : :MO Performed By: Shiela Greene : :Referring: MO BALL : + + Interpretation Summary 1) Normal left ventricular size with mildly reduced systolic function (EF 40- 45%). 2) There is a significant dyssynchronous contraction pattern due to the paced rhythm. 3) Normal right ventricular size and function. 4) There is mild aortic stenosis (valve area 1.6cm2, mean gradient 4mm Hg, severity ratio 0.45). 5) Compared to the Echo done 10/08/2020, no significant change. Procedure: A two-dimensional transthoracic echocardiogram with color flow and Doppler was performed. The study quality was technically adequate. Comparison is made with the echocardiogram of 10/08/2020. The heart rate ranged between 69-80 bpm during the study. Left Ventricle: The left ventricle is normal in size. Left ventricular wall thickness is borderline increased. The ejection fraction is estimated to be 40-45%. Left ventricular systolic function is mild to moderately reduced. There is a significant dyssynchronous contraction pattern due to the paced rhythm. Right Ventricle: The right ventricle is normal in size and function. Atria: The left atrium is moderately dilated. The right atrium is moderately dilated. There is no Doppler evidence for an interatrial shunt. Mitral Valve: The mitral valve leaflets appear mildly thickened, but open well. There is mild to moderate mitral annular calcification. There is trace mitral regurgitation. Aortic Valve: The aortic valve is not well visualized. The aortic valve is slightly calcified. There is mild aortic valve sclerosis. There is mild aortic stenosis. There is trace aortic regurgitation. Tricuspid Valve: The tricuspid valve is normal in structure and function. There is mild tricuspid regurgitation. The right ventricular systolic pressure is estimated to be at least 28 mmHg based on an estimated right atrial pressure of 3 mm Hg. Pulmonic Valve: The pulmonic valve is not well seen, but is grossly normal. There is no pulmonic valvular regurgitation. Great Vessels: The aortic root is normal size. The dimensions of the ascending aorta are normal. The IVC is of normal diameter and collapses greater than 50% with a sniff. This suggests a low right atrial pressure of 3 mm Hg. Pericardium/ Pleura There is no pericardial effusion. There is no pleural effusion. MMode/2D Measurements & Calculations LVIDd: 3.7 cm LVOT diam: 2.0 cm LVIDs: 2.9 cm Ao root diam: 3.0 cm FS: 19.7 % asc Aorta Diam: 2.9 cm IVSd: 1.1 cm Ao Arch Diam (Prox Trans): 2.8 cm LVPWd: 1.1 cm LV garcia. diameter/BSA (cm/m^2): 2.2 LV sys. diameter/BSA (cm/m^2): 1.8 LA A2 area: 21.7 cm2 RA long axis: 4.8 cm LA A4 area: 20.5 cm2 RA area: 18.1 cm2 LA length (vol): 5.7 cm RA vol: 57.9 ml LA vol: 66.1 ml RA : 35.3 ml/m2 LA vol index: 40.3 ml/m2 IVC diam: 1.6 cm RVD1 (basal): 2.9 cm RVD2 (mid): 2.5 cm TAPSE: 1.9 cm Doppler Measurements & Calculations Ao V2 max: 137.3 cm/sec LVOT Max Oneil: 67.6 cm/sec Ao V2 mean: 96.2 cm/sec LV V1 max P.8 mmHg Ao max P.5 mmHg LV V1 VTI: 11.4 cm Ao mean P.1 mmHg WALDO(I,D): 1.4 cm2 Ao V2 VTI: 25.6 cm WALDO(V,D): 1.6 cm2 sev ratio: 0.45 WALDO indexed to BSA (cm^2/m^2): 0.86 MV E max oneil: 131.4 cm/sec TR max oneil: 251.0 cm/sec MV A max oneil: 53.5 cm/sec TR max P.2 mmHg MV E/A: 2.5 PA pr(Accel): 41.3 mmHg Med Peak E' Oneil: 4.2 cm/sec E/E' med: 31.7 Lat Peak E' Oneil: 8.2 cm/sec E/E' lat: 16.1 E/e' average: 23.9 MV dec time: 0.24 sec SV(OT): 36.2 ml Reading Physician:02:37 PM
[2021-07-16] MEDS: SODIUM CHLORIDE 0.9% 500 ML IV (11:53)
[2021-07-16] MEDS: SODIUM CHLORIDE 0.9% 1,000 ML 125 ML IV ×2 (14:58→22:59)
--- NOTE | 2021-07-16 15:45 | CM.DPC ---
DCP/Assessment: Reviewed chart. Patient is a 80yr old female admitted to [facility] with abdominal pain. PCP is Dr. Castro. Primary payor is 1)[facility] Medicare. PERIPHERAL EQUIPMENT OPERATOR met with patient and daughter/Rina at bedside explained role. Daughter reports that patient resides with her spouse [place]. Daughter believes that her dad/Ryan has been worn out lately. At this time d/c needs unknown. Daughter not opposed to short SNF stay if recommended. [facility] is first choice. Daughter also concerned that patient is not used to being alone and since COVID, SNF may not be most appropriate plan. PT/OT evaluations would be helpful in determining recommendations. In addition, daughter interested in community resources for additional care in the residence. Family live nearby. Patient and spouse live in small mobile home. Patient uses walker at baseline and w/c for outings. P: Pending. CM team to follow closely. If SNF recommended will need authorization from [facility]. JER Discharge Planning/Care Management CM Discharge Assessment Start: 07/16/21 15:43 Freq: Status: Active Protocol: Document 07/16/21 15:43 KJS (Rec: 07/16/21 15:45 [id number]) Discharge Planning Assessment Assigned Special Effects Person JEMAL Maria Contact Information Ryan Burgess (spouse) # [phone] Advance Directives? Yes Advance Directives on File Yes History Provided By Patient,Family Member,Medical Record Prior Living Arrangements RV Household Members spouse Type of transporation used prior to Relies on Others admit Independent with ADL's No Is patient alert and oriented? Yes Needs Assistance With Meal Prep,Home Chores / Shopping Caregiver for Another No DME Already Rented / Owned Wheelchair,FWW / Walker Comment FWW. 4WW when outside with spouse in the yard. Uses w/c for outings. Patient/Family Preference Long Term Facility Barriers to Discharge No Discharge Plan Home Transportation Arrangement Pending d/c plan Additional Comment PT/OT evluations expected. Whiteboard Updated in Patient Room with Yes name and ext. # of Special Effects Person Review Status In Process Next Review Type Continued Stay Review
[2021-07-16 15:57] LABS: Calcium 8.5 mg/dL (8.4-10.2); Carbon Dioxide 15 mmol/L (22-32); Chloride 116 mmol/L (98-107); Estimated Glomerular Filt Rate 22.4 mL/min (>60); Glucose 92 mg/dL (80-110); HEMOLYSIS < 15 (0-50); Sodium 138 mmol/L (137-145)
[2021-07-16 16:05] LABS: BUN Creatinine Ratio 52.6 (6-22)
[2021-07-16 16:08] LABS: Potassium 5.7 mmol/L (3.4-5.1)
[2021-07-16 16:10] LABS: Blood Urea Nitrogen 111 mg/dL (7-17)
--- NOTE | 2021-07-16 17:30 | PC.NURSE ---
Day Shift Note Pt alert and oriented to self and often place throughout shift. Follows commands and is appropriate. BP trending down to 78/42 at 1103 (see VS) and Dr. Castro notified. Order received to bolus 500 ml NS over 2 hours which was done, pt tolerated well. BP currently 90s/50s. 2 person assist with FWW to BSC, weakness waxes and wanes. CBG down to 66 at 1630, increased to 77 post-juice. Dr. Castro notified and order received to hold lantus this evening. Call light within reach. Bed alarm on. Daughter (Rina) at bedside.
[2021-07-16] MEDS: SODIUM POLYSTYRENE SULFON/SORB 15 GM/60 ML CUP PO (17:37)
[2021-07-16] MEDS: MEMANTINE HCL 5 MG TABLET PO (21:00)
[2021-07-16] MEDS: ESCITALOPRAM 10 MG TABLET PO (21:00)
[2021-07-17] VITALS (8 sets, daily range): BP systolic 102–122; BP diastolic 54–80; PULSE 60–76; RESP 16–20; TEMP 36.3–37.1; O2SAT 91–98
[2021-07-17 04:53] LABS: Add Manual Diff / Slide Review NO; Basophils Absolute Auto 0 /uL (0-100); Basophils Percent Auto 0.3 % (0-2); Eosinophils Absolute Auto 200 /uL (0-450); Eosinophils Percent Auto 2.2 % (2-4); Hematocrit 35.1 % (36-46); Hemoglobin 11.1 g/dL (12.0-16.0); Lymphocytes Absolute Auto 1400 /uL (1100-4500); Lymphocytes Percent Auto 13.2 % (25-40); Mean Corpuscular HGB Conc 31.7 % (30-36); Mean Corpuscular Hemoglobin 27.8 PG (26-34); Mean Corpuscular Volume 87.8 fL (80-100); Monocytes Absolute Auto 800 /uL (0-900); Monocytes Percent Auto 7.8 % (3-14); Neutrophils Absolute Auto 7900 /uL (1500-7000); Neutrophils Percent Auto 76.5 % (50-75); Platelet Count 209 X10^3/uL (150-400); Red Cell Distribution Width 15.8 % (11.6-14.8); White Blood Cell Count 10.3 X10^3/uL (4.5-11.0)
[2021-07-17 05:08] LABS: Alanine Aminotransferase 13 IU/L (<35); Albumin 2.7 g/dL (3.5-5.0); Alkaline Phosphatase 101 U/L (38-126); Aspartate Aminotransferase 26 IU/L (14-36); BUN Creatinine Ratio 54.7 (6-22); Bilirubin Total 0.2 mg/dL (0.2-1.3); Blood Urea Nitrogen 88 mg/dL (7-17); Calcium 8.1 mg/dL (8.4-10.2); Carbon Dioxide 15 mmol/L (22-32); Chloride 120 mmol/L (98-107); Estimated Glomerular Filt Rate 30.6 mL/min (>60); Globulin 2.8 g/dL (1.7-4.1); Glucose 128 mg/dL (80-110); HEMOLYSIS < 15 (0-50); Magnesium 2.4 mg/dL (1.6-2.3); Potassium 5.2 mmol/L (3.4-5.1); Sodium 139 mmol/L (137-145); Total Protein 5.5 g/dL (6.3-8.2)
[2021-07-17] MEDS: LEVOTHYROXINE 100 MCG TABLET PO (06:03)
[2021-07-17] MEDS: SODIUM CHLORIDE 0.9% 1,000 ML 125 ML IV (07:05)
[2021-07-17] MEDS: cefTRIAXone 500 MG in DEXTROSE 5 % IN WATER 50 ML 100 ML IV (08:28)
--- NOTE | 2021-07-17 09:17 | PM.PN.1 ---
Subjective Subjective Date Patient Seen: 07/17/21 Time Patient Seen: 09:17 Interval history: Patient seen and evaluated this morning. She sitting up in bed having breakfast. She says she does not feel well. She knows she is at the hospital she knows I am a doctor but does not know my name. She really has no major complaints. She wonders how she got to the hospital. Vital signs were stable overnight. Blood pressures improved. Blood sugars have been okay with low blood sugars So Lantus was held last night. She is eating swallowing well. Bowel movements urination stable. Exam Vital Signs (past 8 hours): - 07/17/21 02:26 07/17/21 07:58 07/17/21 08:35 Temperature 97.3 F L 97.5 F L Pulse Rate 76 72 Respiratory Rate 18 16 Blood Pressure 102/57 L 110/54 L Pulse Oximetry 93 94 97 Oxygen Delivery Method Room Air Oxygen Flow Rate 0 Narrative Exam Narrative: Gen.: Patient is alert oriented to place and person unsure of time and does not recognize me. HEENT: Pupils equal round and reactive. Neck is supple. No lymphadenopathy. Patients or mucosa is moist. Cardio: S1-S2 irregular rhythm slight systolic murmur Respiratory: Lungs are clear decreased breath sounds at bases no increased work of breathing. Abdomen: Soft mild tenderness in the abdomen today. No significant organomegaly Extremities: Warm dry perfused. Mild trace edema Objective Imaging Echo: Radiologist's impression: Interpretation Summary 1) Normal left ventricular size with mildly reduced systolic function (EF 40- 45%). 2) There is a significant dyssynchronous contraction pattern due to the paced rhythm. 3) Normal right ventricular size and function. 4) There is mild aortic stenosis (valve area 1.6cm2, mean gradient 4mm Hg, severity ratio 0.45). 5) Compared to the Echo done 10/08/2020, no significant change. Labs Result Diagrams: 07/17/21 04:27 07/17/21 04:27 Labs: Laboratory Results - last 24 hr 07/16/21 07/17/21 07/17/21 15:30 04:27 04:27 WBC 10.3 RBC 4.00 Hgb 11.1 L Hct 35.1 L MCV 87.8 MCH 27.8 MCHC 31.7 RDW 15.8 H Plt Count 209 Neut % (Auto) 76.5 H Lymph % (Auto) 13.2 L Fisher % (Auto) 7.8 Eos % (Auto) 2.2 Baso % (Auto) 0.3 Neut # (Auto) 7900 H Lymph # (Auto) 1400 Fisher # (Auto) 800 Eos # (Auto) 200 Baso # (Auto) 0 Sodium 138 139 Potassium 5.7 H 5.2 H Chloride 116 H 120 H Carbon Dioxide 15 L 15 L BUN 111 H* 88 H Creatinine 2.11 H 1.61 H Estimated GFR 22.4 L 30.6 L BUN/Creatinine Ratio 52.6 H 54.7 H Glucose 92 128 H Calcium 8.5 8.1 L Magnesium 2.4 H Total Bilirubin 0.2 AST 26 ALT 13 Alkaline Phosphatase 101 D Total Protein 5.5 L Albumin 2.7 L Globulin 2.8 Albumin/Globulin Ratio 1.0 PFSH Medical History Atrial fibrillation (09/20/10) Bilateral shoulder pain Bipolar disorder Bradycardia Cardiomyopathy Chronic diarrhea (06/10/16) Cognitive decline Controlled type 2 diabetes mellitus (09/20/10) Essential hypertension (09/20/10) Fatigue Head contusion History of Graves' disease History of placenta previa Irritable bowel syndrome Minor head injury without loss of consciousness Neuropathy of both feet Renal artery stenosis (09/20/10) Retinal scar Rheumatoid arthritis Right leg pain Sprain of left shoulder Stye Systolic congestive heart failure (09/20/10) Thyroid nodule Vision disorder Weakness Surgical History Anesthesia History of hip replacement History of knee replacement History of partial surgical removal of colon (06/10/16) Status post dilation and curettage Social History details: She is living with her in a trailer. She is a [employer] household members: spouse Smoking Status: Former smoker alcohol intake: former Assessment & Plan Assessment and plan (1) Acute kidney failure: Status: Acute Plan Acute kidney injury with chronic renal failure stage 3. Kidney function is improved with response of fluids. BUN is improving as well as creatinine. Patient also has a little bit more awake and alert today and eating. Electrolytes and laboratory tests were reviewed this morning. Will go ahead and stop her IV fluid this morning to prevent fluid overload she has had a number of L in over the last few days. Watch for signs of decompensation may need a dose of Lasix. Acute hyperkalemia. One additional dose of Kayexalate yesterday. Potassium is just about normal range. Will go ahead and continue to monitor. Acute urinary tract infection.? On Rocephin follow culture results. Acute metabolic encephalopathy patient has encephalopathy due to underlying renal failure.? Patient's encephalopathy is improving. She has some baseline cognitive dysfunction. Class for acute severe systolic heart failure.? Repeated echocardiogram in this hospital say ejection fraction is now 40-45%. Which is stable. Previous echocardiogram which was done at an outside source had an ejection fraction of 40% previous echo before that had an ejection fraction of 20%. Less worried that her acute renal failure was due to underlying heart dysfunction. Diabetes type 2.? Long-acting insulin was held last night because of some low blood sugars. She is eating now. Continue with insulin sliding scale and long-acting insulin Hypothyroidism patient is on thyroid replacement Code status patient is a no code.? Reviewed code status with daughter today.? She confirms pulsed form.? Disposition and plan.? PT OT evaluation today. Stop IV fluids continue to monitor electrolytes work with ambulation. Will need discharge to custodial facility Time Spent With Patient Critical Care time: I spent a total of [] minutes of critical care time on this patient's care today; this time is exclusive of procedural time. Quality VTE Deep Vein Thrombosis/Pulmonary Embolism Present on Admission: No
--- NOTE | 2021-07-17 09:17 | CM.DPNOTE ---
Called Yue at [facility] per Marisol to have her review patient information for SNF/insurance. I will look for vaccine information.Rina Schultz CM Assist.
--- NOTE | 2021-07-17 11:20 | OT.IP.EVAL ---
Current Diagnoses Acute kidney failure, unspecified (07/15/21) Past Medical History (Last Reviewed 07/16/21 @ 10:03 by Live Castro MD) Atrial fibrillation (09/20/10) Bilateral shoulder pain Bipolar disorder Bradycardia Cardiomyopathy Chronic diarrhea (06/10/16) Cognitive decline Controlled type 2 diabetes mellitus (09/20/10) Essential hypertension (09/20/10) Fatigue Head contusion History of Graves' disease History of hip replacement History of knee replacement History of placenta previa Irritable bowel syndrome Minor head injury without loss of consciousness Neuropathy of both feet Renal artery stenosis (09/20/10) Retinal scar Rheumatoid arthritis Right leg pain Sprain of left shoulder Stye Systolic congestive heart failure (09/20/10) Thyroid nodule Vision disorder Weakness Surgical History (Last Reviewed 07/16/21 @ 10:03 by Live Castro MD) Anesthesia History of hip replacement History of knee replacement History of partial surgical removal of colon (06/10/16) Status post dilation and curettage Occupational Therapy Inpatient Evaluation/Re-Eval M1 PT/OT-IP Prior Functional Status Start: 07/17/21 12:01 Freq: NEEDED Status: Active Protocol: Document 07/17/21 12:02 [facility] (Rec: 07/17/21 12:22 [facility] [id number]) Medical Review Prior Functional Status Communication Pt at times having difficulty to get the words out. Mobility and Gait Pt states used a FWW inside the house to move. Activities of Daily Living and IADL's Pt states in the past month has gotten very weak and that her was having to assist with dressing, toileting, and bathing needs. Prior pt states was able to most of it on her own. Social History Household Members spouse Living Arrangements RV Number of Floors (Floors) One Floor Number of Stairs To Enter/Railing? 4 step with bilateral rail per pt. Home Environment Standard Height Toilet,Walk in Shower Home Equipment Front Wheel Walker,Four Wheel Walker,Straight Cane,Manual Wheelchair,Shower Seat with Backrest,Hand Held Shower,Grab Bars Near Toilet,Grab Bars In Shower Employment Status Additional Social History Comment Pt's has daughters that assist for showering and recently more with her ADl needs due to her progressively getting weaker. M2 OT-IP Current Condition Start: 07/17/21 12:01 Freq: Status: Active Protocol: Document 07/17/21 12:02 [facility] (Rec: 07/17/21 12:22 [facility] [id number]) Occupational Therapy Current Condition Current Condition Evaluation Date 07/17/21 Treatment Diagnosis Acute renal failure, dehydration, UTI Diagnosis Onset Date 07/17/21 M3 OT- IP Subjective and Pain Start: 07/17/21 12:01 Freq: Status: Active Protocol: Document 07/17/21 12:02 [facility] (Rec: 07/17/21 12:22 [facility] [id number]) OT- Subjective Occupational Therapy Visit Type Type Initial Evaluation Visit Start Time 10:30 Visit Stop Time 11:20 Total Visit Minutes 50 Occupational Therapy Visit Comments Patient Comments Pt agreed to get out of bed to use the BSC. Patient/Caregiver Goals Pt open to going to skilled rehab. However pt not fully not understanding her disposition of being at the hospital. OT Pain Assessment Pain When Pain Assessed At Rest Pain Present Pain Present Pain Reported M4 OT- IP ADL's Start: 07/17/21 12:01 Freq: Status: Active Protocol: Document 07/17/21 12:02 [facility] (Rec: 07/17/21 12:22 [facility] [id number]) OT [id number] Comments OT Self-Feeding Comments Not at meal time. OT ADL-Grooming General Evaluation Grooming Ability Minimal Assistance Areas Needing Assistance Combing/Brushing Hair Comments OT Grooming Comments Due to decreased shoulder AROm , pt needing assist to comb the back of her hair. OT ADL-Oral Care General Eval Oral Care Ability Standby Assistance Areas of Assistance Retrieving/Set-Up of Items OT ADL-Dressing General Eval Lower Body Dressing Ability Maximum Assistance Areas Needing Assistance Underpants/Brief,Socks Comments OT Dressing Comments Due to decreased dynamic balance, pt needing assist for LB dressing needs. OT ADL-Toileting General Evaluation Toileting Ability Maximum Assistance Areas Needing Assistance Manage Clothing,Perform Perineal Hygiene Comments OT Toileting Comments Pt needing physical assist and vc for safety while doing hygiene needs. OT ADL-Bathing Comments OT Bathing Comments Not performed. M5 OT- IP IADL's Start: 07/17/21 12:01 Freq: Status: Active Protocol: Document 07/17/21 12:02 [facility] (Rec: 07/17/21 12:22 [facility] [id number]) OT-Instrumental Activities of Daily Living Deficits IADL Deficits Identified Deficits Home Safety Awareness Awareness of Need for Assistance at Home Decreased Awareness Ability to Problem Solve Emergency Unable to Problem Solve Situations Medication Management Medication Management Caregiver Administers Money Management Money Management Caregiver Provides Assistance Meal Preparation Meal Preparation Caregiver Provides Assist Metal Stamping Machine Operator Metal Stamping Machine Operator Caregiver Provides Assist Driving Driving Caregiver Provides Assist M6 OT- IP Functional Cognition Start: 07/17/21 12:01 Freq: Status: Active Protocol: Document 07/17/21 12:02 [facility] (Rec: 07/17/21 12:22 [facility] [id number]) Cognitive Factors Limiting Selfcare Function Cognitive Ability Level of Alertness Alert,Confusional State Patient Orientation Name Attention Span Ability Capable of Focused Attention, Unable to Sustain Attention Ability to Follow Commands Able to Follow One Step Commands with Increased Time, Able to Follow One Step Commands with Repetition Memory Description Short Term Impaired,Working Impaired Safety Awareness Underestimates Need for Assistance Problem Solving Ability Unable to Identify Errors, Needs Assist to Identify Solutions Cognitive Comments Cognitive Assessment Comments Per chart pt has dementia. Pt is pleasant and able to follow commands and easily redirected as needed. Pt needing safety cues for FWW use, and assist to help sequence through ADL needs. Pt was trying to clean herself after a bowel movement with a wet wipe and then proceeded to try to wipe her face. Therapist had intervene the pt and educated on hygiene needs. At this time as pt a bit confused, best for nursing to assist pt for hygiene needs. OT- Vision and Hearing OT- Vision Assessment Visual Acuity Glasses All The Time M7 OT- IP Mobility and Balance Start: 07/17/21 12:01 Freq: Status: Active Protocol: Document 07/17/21 12:02 [facility] (Rec: 07/17/21 12:22 [facility] [id number]) OT- Bed Mobility Assessment Supine to Sit Supine to Sit Assist Moderate Assistance Sit to Supine Sit to Supine Assist Moderate Assistance OT-Transfer Assessment Sit to and From Stand Sit to and from Stand Minimal Assistance,Moderate Assistance Transfers Transfer Ability Minimal Assistance,Moderate Assistance Technique Transfer Destination Bed,Bedside Commode Transfer Technique Stand Step Pivot Devices Transfer Assistive Devices Gait Belt,Front Wheeled Walker Comments Mobility Comments MODA for bed mobility to get her trunk upright and her legs back onto bed. JACQUI to stand , and will needing MODA from lower surfaces. Assist to balance and when trying assist to guide the FWW. OT- Balance Assessment Sitting Balance and Reactions Static Sitting Balance Ability Good Dynamic Sitting Balance Ability Fair Standing Balance and Reactions Static Standing Balance Ability Poor M8 OT- IP Objective Assessments Start: 07/17/21 12:01 Freq: Status: Active Protocol: Document 07/17/21 12:02 [facility] (Rec: 07/17/21 12:22 [facility] [id number]) OT Gross Range of Motion Upper Extremity Range of Motion Assessment Bilaterally Impaired OT Strength Comments Strength Comments 3-/5 to 4/5 from proximal to distal for BUE OT-Muscle Tone Assessment Muscle Tone WNL Yes M9 OT- IP Assessment and Plan Start: 07/17/21 12:01 Freq: Status: Active Protocol: Document 07/17/21 12:02 [facility] (Rec: 07/17/21 12: [facility] [id number]) OT Summary Assessment and Plan Potential Rehabilitation Potential Good Analytic Complexity at Evaluation Moderate Summary OT Impairments Pain,Range of Motion,Strength, Balance,Coordination, Functional Cognition, Functional Mobility,Grooming, Dressing,Toileting,Bathing, Toilet Transfers,Shower Transfers,Activity Tolerance Progress Towards Goals Slow Progress due to Medical Issues,Slow Progress due to Activity Tolerance,Slow Progress due to Cognition Assessment Summary Pt MOD complexity and main barriers are decreased activity tolerance, dynamic balance, decreased safety awareness and now needing one person assist for ADl and mobility needs. Per pt in the past month has gotten weaker and that he has to assist her more for all needs and prior pt states was able to mostly be able to assist with her needs. Pt would benefit from skilled rehab. Goals Grooming Goal Minimal Assistance Dressing Goal Standby Assistance Toileting Goal Standby Assistance Bathing Goal Standby Assistance Toilet Transfer Goal Independent Shower Transfer Goal Standby Assistance Days to Meet Goals 10 Frequency of Treatment Frequency Of Treatment Once a Day Treatment Plan OT Treatment Plan ADL Training,Functional Cognition Training,Functional Mobility,Patient/Family Education,Discharge Planning Other Treatment Recommendations and Next machine container washer front of sink for Treatment Focus grooming needs with FWW Discharge Recommendations OT Discharge Recommendations SNF Rehab Transportation Needs at Discharge Private Vehicle,Wheelchair/ Cabulance
--- NOTE | 2021-07-17 11:33 | PT.IIE ---
Current Diagnoses Acute kidney failure, unspecified (07/15/21) Surgical History (Last Reviewed 07/16/21 @ 10:03 by Live Castro MD) Anesthesia History of partial surgical removal of colon (06/10/16) Status post dilation and curettage Medical History (Last Reviewed 07/16/21 @ 10:03 by Live Castro MD) Atrial fibrillation (09/20/10) Bilateral shoulder pain Bipolar disorder Bradycardia Cardiomyopathy Chronic diarrhea (06/10/16) Cognitive decline Controlled type 2 diabetes mellitus (09/20/10) Essential hypertension (09/20/10) Fatigue Head contusion History of Graves' disease History of placenta previa Irritable bowel syndrome Minor head injury without loss of consciousness Neuropathy of both feet Renal artery stenosis (09/20/10) Retinal scar Rheumatoid arthritis Right leg pain Sprain of left shoulder Stye Systolic congestive heart failure (09/20/10) Thyroid nodule Vision disorder Weakness Physical Therapy Inpatient Evaluation/Re-Eval M1 PT/OT-IP Prior Functional Status Start: 07/17/21 13:24 Freq: NEEDED Status: Active Protocol: Document 07/17/21 11:33 [facility] (Rec: 07/17/21 13:50 AB [id number]) Medical Review Prior Functional Status Medical History Reviewed Yes Communication Able to make needs known Mobility and Gait Pt stated that she is modified independent with ambulation using FWW indoors but uses a manual w/c for outdoor mobility. Activities of Daily Living and IADL's daughter stated that she comes in 2x/wk to assist pt with showers Social History Household Members spouse Living Arrangements Mobile home Number of Floors (Floors) One Floor Number of Stairs To Enter/Railing? 4 steps L rail to enter the house Home Environment High Toilet,Walk in Shower Home Equipment Front Wheel Walker,Manual Wheelchair,Shower Seat without Backrest,Hand Held Shower, Grab Bars Near Toilet,Grab Bars In Shower Employment Status [employer] Temporary M2 PT-IP Current Condition Start: 07/17/21 13:24 Freq: NEEDED Status: Active Protocol: Document 07/17/21 11:33 [facility] (Rec: 07/17/21 13:50 AB [id number]) Physical Therapy Current Condition Current Condition Evaluation Date 07/17/21 Treatment Diagnosis UTI; difficulty in walking Onset Date 07/15/21 M3 PT-IP Subjective Start: 07/17/21 13:24 Freq: NEEDED Status: Active Protocol: Document 07/17/21 11:33 [facility] (Rec: 07/17/21 13:50 AB [id number]) Subjective Physical Therapy Visit Type Type Initial Evaluation Visit Start Time 11:33 Visit Stop Time 12:00 Total Visit Minutes 27 Number of [employer] CONS[employer] Visits 0 Physical Therapy Visit Comments Patient Comments agreeable to do PT Therapy Pain Assessment Pain When Pain Assessed At Rest Pain Present Pain Present Pain Reported Location Lower Abdomen Intensity 6 Scale Used Numeric (0 - 10) Pain Management Techniques Distraction,Modification of Treatment M4 PT-IP Mobility and Gait Start: 07/17/21 13:24 Freq: NEEDED Status: Active Protocol: Document 07/17/21 11:33 [facility] (Rec: 07/17/21 13:50 [facility] [id number]) PT-Bed Mobility Assessment Supine to Sit Supine to Sit Maximum Assistance PT-Transfer Assessment Sit to and From Stand Sit to and from Stand Moderate Assistance,1 Person Assistance,Use of Upper Extremities Equipment Transfer Assistive Device Gait Belt,Front Wheeled Walker Orthotic/Prosthetic Devices or Brace: No Transfers Transfer Destination Chair Transfer Technique ambulated Transfer Ability Level of Assist Moderate Assistance,1 Person Assistance,Use of Upper Extremities Comments Mobility Comments pt completed supine to sit max A and max cues. required mod A for initial sitting. assisted in repositioning on EOB mod to max A and was able to sit SBA afterwards. completed sit to stand mod A and cues and ambulated ~ 8 ft using FWW mod A. pt unable to walker farther but agreed to sit up on chair for lunch. positioned pt on chair. call light and table placed within reach. Gait Assessment Gait Gait Assistance Required: Moderate Assistance,1 Person Assist Distance (Feet) 8 Able to Maintain Weight Bearing Status Yes During Gait Assistive Devices Assistive Device Gait Belt,Front Wheeled Walker Orthotic/Prosthetic Devices or Brace: Yes Gait Deviations General Gait Pattern Decreased Stride Length, Decreased Feet Clearance,Step- to Gait Factors Limiting Gait Function Factors Limiting Gait Function Decreased Activity Tolerance, Decreased Strength,Pain,Poor Balance,Poor Safety Awareness PT-Balance Assessment Sitting Balance and Reactions Static Sitting Balance Ability Good Dynamic Sitting Balance Ability Fair Standing Balance and Reactions Static Standing Balance Ability Poor Dynamic Standing Balance Ability Poor Device Used FWW M5 PT-IP Objective Assessments Start: 07/17/21 13:24 Freq: NEEDED Status: Active Protocol: Document 07/17/21 11:33 [facility] (Rec: 07/17/21 13:50 [facility] [id number]) Orientation Orientation/Cognition Level of Alertness Alert Orientation Name,Place,Situation Safety Awareness Decreased Safety Awareness Memory Description Short Term Impaired,Carbonation Equipment Operator Impaired Gross Range of Motion Lower Extremity ROM Assessment Within Functional Limits Strength Lower Extremity Strength Assessment Left Impaired Hip 4-/5 Knee 3+/5 Comments Strength Comments (+) L knee clunk during testing Sensation Assessment Sensation Gross Sensation WNL Muscle Tone Muscle Tone WNL Yes M6 PT-IP Treatment Start: 07/17/21 13:24 Freq: NEEDED Status: Active Protocol: Document 07/17/21 11:33 [facility] (Rec: 07/17/21 13:50 AB [id number]) Physical Therapy Treatment Education Education Provided Safety M7 PT-IP Assessment and Plan Start: 07/17/21 13:24 Freq: NEEDED Status: Active Protocol: Document 07/17/21 11:33 [facility] (Rec: 07/17/21 13:50 AB [id number]) PT Summary Assessment and Plan Potential Rehabilitation Potential Fair Status of Condition at Evaluation Evolving Summary Impairments Pain,ROM,Strength,Balance, Coordination,Sensation, Cognition,Bed Mobility, Transfers,Gait,Activity Tolerance Assessment Summary pt requiring mod A to max A with mobility using FWW and has decrease activity tolerance and only able to ambulate ~ 8 ft today. pt has had progressive weakness per pt and daughter. pt will require SNF rehab to improve overall strength and mobility independence to safely d/c home. will continue to assess progress. Goals Bed Mobility Goal Standby Assistance Transfer Goal Standby Assistance,Front Wheeled Walker Gait Goal Standby Assistance,Front Wheel Walker Gait Distance 25 Other Goals improve amublation using FWW 75 ft SBA up/down 4 steps L rail CGA Days to Meet Goals 10 Frequency of Treatment Frequency Of Treatment Once a Day Treatment Plan Physical Therapy Treatment Plan Bed Mobility Training,Transfer Training,Gait Training, Therapeutic Exercise,Balance Retraining,Discharge Planning, Hot or Cold Pack,Neuromuscular Re-ed,Coordination Retraining Precautions Other Precautions falls Recommendations To Nursing Amount of Assist Needed 1 Person Assist Discharge Recommendations PT Discharge Recommendations SNF Rehab Transportation Needs at Discharge Private Vehicle,Wheelchair/ Cabulance
[2021-07-17] MEDS: INSULIN LISPRO 100 UNIT/ML 3ML VIAL SUBCUT (11:39)
[2021-07-17] MEDS: ACETAMINOPHEN 325 MG TABLET 650 MG PO ×2 (12:24→19:57)
--- NOTE | 2021-07-17 12:49 | CM.DPNOTE ---
Addendum entered by JEMAL German 07/17/21 16:18: ADD: [facility] has secured insurance authorization for admission to SNF tomorrow 07.18.21. Dr Castro updated. P/u scheduled for 1100 tomorrow, COVID PCR needs to be updated tomorrow AM. JW Original Note: DCP Note Dr Castro recommending DC to SNF tomorrow 07.18.21. Discussed plan w/patient's dtr Rina and spouse Chanelle [facility] is first choice- both agreeable to plan and will await updates as they become available According to YueChanelle, patient has been clinically accepted for admission but she will need to secure an auth from [facility] Following closely GURMEET
[2021-07-17] MEDS: ONDANSETRON 4 MG/2 ML INJ IV (16:30)
[2021-07-17] MEDS: ESCITALOPRAM 10 MG TABLET PO (20:59)
[2021-07-17] MEDS: MEMANTINE HCL 5 MG TABLET PO (20:59)
[2021-07-17] MEDS: INSULIN GLARGINE 100 UNIT/ML 3ML PEN 25 UNIT SUBCUT (20:59)
[2021-07-18] VITALS: BP 155/75; PULSE 71; RESP 14; TEMP 36.9; O2SAT 98
[2021-07-18 05:00] VITALS: BP 116/73; PULSE 73; RESP 20; TEMP 37.1; O2SAT 99
[2021-07-18 05:02] LABS: Add Manual Diff / Slide Review NO; Basophils Absolute Auto 300 /uL (0-100); Basophils Percent Auto 2.6 % (0-2); Eosinophils Absolute Auto 300 /uL (0-450); Eosinophils Percent Auto 2.7 % (2-4); Hematocrit 35.8 % (36-46); Hemoglobin 11.5 g/dL (12.0-16.0); Lymphocytes Absolute Auto 1700 /uL (1100-4500); Lymphocytes Percent Auto 16.4 % (25-40); Mean Corpuscular HGB Conc 32.2 % (30-36); Mean Corpuscular Hemoglobin 28.1 PG (26-34); Mean Corpuscular Volume 87.2 fL (80-100); Monocytes Absolute Auto 900 /uL (0-900); Monocytes Percent Auto 8.4 % (3-14); Neutrophils Absolute Auto 7200 /uL (1500-7000); Neutrophils Percent Auto 69.9 % (50-75); Platelet Count 213 X10^3/uL (150-400); Red Blood Cell Count 4.11 X10^6/uL (4.0-5.2); Red Cell Distribution Width 15.4 % (11.6-14.8); White Blood Cell Count 10.3 X10^3/uL (4.5-11.0)
[2021-07-18 05:13] LABS: Alanine Aminotransferase 17 IU/L (<35); Albumin 2.9 g/dL (3.5-5.0); Alkaline Phosphatase 112 U/L (38-126); Aspartate Aminotransferase 29 IU/L (14-36); BUN Creatinine Ratio 46.3 (6-22); Bilirubin Total 0.3 mg/dL (0.2-1.3); Blood Urea Nitrogen 56 mg/dL (7-17); Calcium 8.7 mg/dL (8.4-10.2); Carbon Dioxide 19 mmol/L (22-32); Chloride 119 mmol/L (98-107); Estimated Glomerular Filt Rate 42.6 mL/min (>60); Globulin 2.9 g/dL (1.7-4.1); Glucose 81 mg/dL (80-110); HEMOLYSIS < 15 (0-50); Sodium 138 mmol/L (137-145); Total Protein 5.8 g/dL (6.3-8.2)
[2021-07-18 05:31] LABS: Potassium 5.8 mmol/L (3.4-5.1)
--- NOTE | 2021-07-18 06:22 | PC.NURSE ---
0600- Patient having loose watery stools. Am labs noted. Will notify Dr. Warren when the office opens if he doesn't round early. Patient lungs are dim/clear. Mostly VPaced. Daughter remains at bedside. Will monitor.
--- NOTE | 2021-07-18 07:44 | PM.DS.1 ---
History of Present Illness History of Present Illness Chief complaint: Not Feeling Well, Stomach Issues Narrative: 80-year-old female with dementia who lives at home with her patient has a history of diabetes type 2 insulin dependent systolic heart failure cardiac pacemaker hypertension cerebrovascular accident. Patient lives at home with her . History is obtained from the as well from the daughter who is at the bedside with her. Over the last few days daughter spends every day visiting noticed that her mom became a little bit more tired and sleeping. They recently had an anniversary and she was sleeping 18-20 hours a day. They became acutely concerned over the last 24 hours she began to have some abdominal pain pain which was quite severe at. They did not notice any fevers or chills. Maybe there was some increasing weakness. She did have any shortness of breath and was not complaining of any chest pain. Due to the abdominal pain she was brought to the emergency department for evaluation. Laboratory testing ensued his CT scan was ensued and patient was found to be in acute renal failure with some hyperkalemia as CT scan of her abdomen was done which is fairly unremarkable. She was given appropriate treatment of fluids and medication for her hyperkalemia and we are admit asked to admit the patient to the hospital. On evaluation at the bedtime patient is very sleepy. She answers questions and is arousable. She is disoriented to place and time. Discharge Providers Provider Date of admission: 07/15/21 19:36 Discharge Date: 07/18/21 Primary care physician: Live Castro MD Consults: 07/15/21 21:15 Consult to Discharge Planning Routine Comment: 07/17/21 09:13 Consult to Occupational Therapy Evaluate & Treat Comment: Physician Instructions: Evaluate and treat Consult to Physical Therapy Evaluate & Treat Comment: Physician Instructions: Evaluate and Treat 07/17/21 09:22 Consult to Occupational Therapy Evaluate & Treat Comment: Physician Instructions: Evaluate and treat Consult to Physical Therapy Evaluate & Treat Comment: Physician Instructions: Evaluate and Treat Discharge provider: Live Castro MD Summary Hospital Course Discharge Diagnosis: Acute kidney injury with chronic renal failure stage 3 Acute hyperkalemia Acute urinary tract infection Acute metabolic encephalopathy Chronic with acute severe systolic heart failure Diabetes type 2 with insulin use Hypothyroidism Hypertension Dementia unspecified chronic Hospital Course: Patient was admitted to the hospital with acute kidney injury and profound hyperkalemia. She was also found to have a urinary tract infection. Patient was admitted the hospital. She was given insulin dextrose Kayexalate and IV fluids for her hyperkalemia over the ensuing few days. Her potassium came down nicely. She tolerated fluids and Kayexalate. We repeated her echocardiogram while she was here in our hospital to see if there was a contributing factor of heart failure is the underlying cause of her kidney failure. Her echocardiogram read build a low normal ejection fraction she has a pacemaker in place. She was given a little bit of Lasix before discharge from the hospital due to this significant amount of fluids that she received in the hospital for her hyperkalemia to prevent worsening or exacerbation of underlying heart failure. Patient work with physical therapy and occupational therapy. During hospital stay she was quite encephalopathic due to her metabolic changes in kidney failure. That improved and was headed toward baseline by the time of discharge. Her urinary tract infection was treated with ceftriaxone and her urine culture grew E coli which was pansensitive. Patient's discharge plan will be to long term. Exam Vital Signs (past 8 hours): - 07/18/21 00:00 07/18/21 05:00 Temperature 98.4 F 98.7 F Pulse Rate 71 73 Respiratory Rate 14 20 Blood Pressure 155/75 H 116/73 Pulse Oximetry 98 99 Oxygen Delivery Method Room Air Oxygen Flow Rate 0 Objective Labs Result Diagrams: 07/18/21 04:28 07/18/21 04:28 Labs: Laboratory Results - last 24 hr 07/18/21 07/18/21 04:28 04:28 WBC 10.3 RBC 4.11 Hgb 11.5 L Hct 35.8 L MCV 87.2 MCH 28.1 MCHC 32.2 RDW 15.4 H Plt Count 213 Neut % (Auto) 69.9 Lymph % (Auto) 16.4 L [place] % (Auto) 8.4 Eos % (Auto) 2.7 Baso % (Auto) 2.6 H Neut # (Auto) 7200 H Lymph # (Auto) 1700 [place] # (Auto) 900 Eos # (Auto) 300 Baso # (Auto) 300 H Sodium 138 Potassium 5.8 H Chloride 119 H Carbon Dioxide 19 L BUN 56 H Creatinine 1.21 H Estimated GFR 42.6 L BUN/Creatinine Ratio 46.3 H Glucose 81 Calcium 8.7 Total Bilirubin 0.3 AST 29 ALT 17 Alkaline Phosphatase 112 Total Protein 5.8 L Albumin 2.9 L Globulin 2.9 Albumin/Globulin Ratio 1.0 [facility] Medical History Atrial fibrillation (09/20/10) Bilateral shoulder pain Bipolar disorder Bradycardia Cardiomyopathy Chronic diarrhea (06/10/16) Cognitive decline Controlled type 2 diabetes mellitus (09/20/10) Essential hypertension (09/20/10) Fatigue Head contusion History of Graves' disease History of placenta previa Irritable bowel syndrome Minor head injury without loss of consciousness Neuropathy of both feet Renal artery stenosis (09/20/10) Retinal scar Rheumatoid arthritis Right leg pain Sprain of left shoulder Stye Systolic congestive heart failure (09/20/10) Thyroid nodule Vision disorder Weakness Surgical History Anesthesia History of hip replacement History of knee replacement History of partial surgical removal of colon (06/10/16) Status post dilation and curettage Social History details: She is living with her in a trailer. She is a [employer] household members: spouse Smoking Status: Former smoker alcohol intake: former Discharge Plan Discharge Plan Patient Disposition: SNF Transfer to: [facility] Discharge orders & Medications Prescriptions: New cephalexin 750 mg capsule 750 mg PO BID Qty: 7 0RF Continued lisinopril 20 mg tablet 20 mg PO DAILY Qty: 90 3RF insulin syringe-needle U-100 [BD Insulin Syringe Ultra-Fine] 1 mL 30 gauge x 1/2 syringe See Rx Instructions .ROUTE .COMPLEX Qty: 100 3RF Dose Instruction: use as directed for daily insulin injections Rx Instructions: use as directed for daily insulin injections escitalopram oxalate 10 mg tablet 10 mg PO .HS Qty: 90 3RF Lantus U-100 Insulin 100 unit/mL solution 40 unit SUBCUT DAILY Qty: 10 11RF memantine [Namenda] 5 mg tablet 5 mg PO .HS Qty: 90 0RF acetaminophen 325 mg Tablet 650 mg PO Q6HR PRN (Reason: Fever/Mild Pain (1-3)) Qty: 30 0RF levothyroxine 100 mcg tablet 100 mcg PO DAILY 0RF Label Comments: TAKE ONE TABLET BY MOUTH ONE TIME DAILY Changed furosemide 40 mg tablet 40 mg PO DAILY Qty: 0 0RF Label Comments: TAKE ONE TABLET BY MOUTH TWICE DAILY Discontinued potassium chloride [K-Tab] 20 mEq tablet extended release 20 meq PO BID Qty: 180 3RF spironolactone 25 mg tablet 25 mg PO DAILY Qty: 90 3RF loperamide 2 mg capsule 2 mg PO .EVERY 1-2 HOURS PRN (Reason: loose stool) Qty: 60 1RF Rx Instructions: TAKE ONE CAPSULE BY MOUTH EVERY 1-2 HOURS NEEDED FOR LOOSE STOOLS. GIVE ONE CAPSULE AFTER EACH LOOSE STOOL. NTE 8 TABS IN 24 HOURS No Action (DME) DISABLED PARKING PERMIT See Rx Instructions .ROUTE .MEDSUPPLY Qty: 1 0RF Rx Instructions: I find this patient to be medically disabled and qualified for disabled parking as indicated, and signed, on the accompanying Disabled Parking Application for Individuals. Follow up/Referrals: Live Castro MD [Primary Care Provider] - Discharge Health Status Multidrug resistant organism: No MDRO Precautions: [place] Diet/Activity/Treatments Diet: Diet as Tolerated Special Rehabilitation Services Rehab type: Physical therapy, Occupational therapy and Speech therapy Discharge Data Primary Care Provider: Live Castro Quality VTE Deep Vein Thrombosis/Pulmonary Embolism Present on Admission: No
[2021-07-18 08:00] VITALS: BP 130/59; PULSE 75; RESP 16; TEMP 36.4; O2SAT 96
[2021-07-18] MEDS: SODIUM POLYSTYRENE SULFON/SORB 15 GM/60 ML CUP PO (08:17)
[2021-07-18] MEDS: cefTRIAXone 500 MG in DEXTROSE 5 % IN WATER 50 ML 100 ML IV (08:17)
[2021-07-18] MEDS: FUROSEMIDE 40 MG/4 ML VIAL IV (08:17)
[2021-07-18] MEDS: LEVOTHYROXINE 100 MCG TABLET PO (08:26)
[2021-07-18 10:15] LABS: COVID19 -Nasal RAPID Negative (Negative)
--- NOTE | 2021-07-18 11:01 | PT.IPTN ---
Current Diagnoses Acute kidney failure, unspecified (07/15/21) Physical Therapy Treatment Note M2 PT-IP Current Condition Start: 07/17/21 13:24 Freq: NEEDED Status: Active Protocol: Document 07/18/21 11:08 SP (Rec: 07/18/21 11:20 SP [id number]) Physical Therapy Current Condition Current Condition Evaluation Date 07/17/21 Treatment Diagnosis UTI; difficulty in walking Onset Date 07/15/21 M3 PT-IP Subjective Start: 07/17/21 13:24 Freq: NEEDED Status: Active Protocol: Document 07/18/21 11:08 SP (Rec: 07/18/21 11:20 SP [id number]) Subjective Physical Therapy Visit Type Type Treatment Note Visit Start Time 10:46 Visit Stop Time 11:01 Total Visit Minutes 15 Notes Daughter in room, observation only during tx. Nurse in room assisting pt with use of BSC. Number of CHOCOLATE MOLDER Visits 1 Physical Therapy Visit Comments Patient Comments Pt agreeable to do transfers with CHOCOLATE MOLDER. Patient Goals Going to SNF to get stronger. Therapy Pain Assessment Pain When Pain Assessed During Mobility Pain Present Pain Present Pain Reported Location Lower Abdomen Scale Used not quantified Description With Movement Pain Behaviors Facial Grimacing Pain Management Techniques Distraction,Modification of Treatment M4 PT-IP Mobility and Gait Start: 07/17/21 13:24 Freq: NEEDED Status: Active Protocol: Document 07/18/21 11:08 SP (Rec: 07/18/21 11:20 SP [id number]) PT-Transfer Assessment Sit to and From Stand Sit to and from Stand Moderate Assistance,Maximum Assistance,1 Person Assistance ,Use of Upper Extremities Equipment Transfer Assistive Device Gait Belt,Front Wheeled Walker Orthotic/Prosthetic Devices or Brace: Yes Transfers Transfer Destination Chair Transfer Technique Stand Step Pivot w/ FWW Transfer Ability Level of Assist Minimal Assistance,1 Person Assistance,Use of Upper Extremities Comments Mobility Comments Pt was seated on BSC with nursing assisting with gown change when arrived. Pt able complete STS from BSC Mod- Max A for trunk support, cued for pushing from arm rest then transition FWW. Pt ableto stand approx 1.5 min with Min- Mod A using BUE Moderate pressure on FWW while nurse assisted with pericare. Step pivot to chair, Min A for slow descent and cues for proper hand placement. CHOCOLATE MOLDER provide brief donning, pt stated unable to do at this time wanted help. STS Mod A from chair. Mod A for standing support while pt complete brief mgt self. Pt stated unable to doing any walking when recommended, requested sit back in chair to tired and need to rest. Pt had call light, warm blankets and tray in front to eat late breakfast . CHOCOLATE MOLDER unable to find chair alarm, discussed with nursing for safety frequent checks to pt for safety, nurse confirmed . Daughter in room when left. Gait Assessment Gait Gait Assistance Required: Moderate Assistance,1 Person Assist Distance (Feet) 2 Able to Maintain Weight Bearing Status Yes During Gait Assistive Devices Assistive Device Gait Belt,Front Wheeled Walker Orthotic/Prosthetic Devices or Brace: No Gait Deviations General Gait Pattern Decreased Stride Length, Decreased Feet Clearance,Step- to Gait Factors Limiting Gait Function Factors Limiting Gait Function Decreased Activity Tolerance, Decreased Strength,Pain,Poor Balance,Poor Safety Awareness Comments Gait Comments see mobility comments PT-Balance Assessment Sitting Balance and Reactions Static Sitting Balance Ability Good Dynamic Sitting Balance Ability Fair Standing Balance and Reactions Static Standing Balance Ability Fair Dynamic Standing Balance Ability Poor Device Used FWW M5 PT-IP Objective Assessments Start: 07/17/21 13:24 Freq: NEEDED Status: Active Protocol: Document 07/17/21 11:33 AB (Rec: 07/17/21 13:50 AB [id number]) Orientation Orientation/Cognition Level of Alertness Alert Orientation Name,Place,Situation Safety Awareness Decreased Safety Awareness Memory Description Short Term Impaired,Clinical Research Associate Impaired Gross Range of Motion Lower Extremity ROM Assessment Within Functional Limits Strength Lower Extremity Strength Assessment Left Impaired Hip 4-/5 Knee 3+/5 Comments Strength Comments (+) L knee clunk during testing Sensation Assessment Sensation Gross Sensation WNL Muscle Tone Muscle Tone WNL Yes M6 PT-IP Treatment Start: 07/17/21 13:24 Freq: NEEDED Status: Active Protocol: Document 07/18/21 11:08 SP (Rec: 07/18/21 11:20 SP [id number]) Physical Therapy Treatment Education Education Provided Safety M7 PT-IP Assessment and Plan Start: 07/17/21 13:24 Freq: NEEDED Status: Active Protocol: Document 07/18/21 11:08 SP (Rec: 07/18/21 11:20 SP [id number]) PT Summary Assessment and Plan Potential Rehabilitation Potential Fair Status of Condition at Evaluation Evolving Summary Impairments Pain,ROM,Strength,Balance, Coordination,Sensation, Cognition,Bed Mobility, Transfers,Gait,Activity Tolerance Progress Towards Goals Progressing Toward Goals,Slow Progress due to Pain,Slow Progress due to Activity Tolerance Assessment Summary Pt required Mod- Max A during STS and transfers using FWW, only able to tolerate SPT this tx. Will continue to assess progress. Pt would benefit from continued skilled therapy to progress strength, activity tolerance toward functional mobility. Goals Bed Mobility Goal Standby Assistance Transfer Goal Standby Assistance,Front Wheeled Walker Gait Goal Standby Assistance,Front Wheel Walker Gait Distance 25 Other Goals improve amublation using FWW 75 ft SBA up/down 4 steps L rail CGA Days to Meet Goals 10 Frequency of Treatment Frequency Of Treatment Once a Day Treatment Plan Physical Therapy Treatment Plan Bed Mobility Training,Transfer Training,Gait Training, Therapeutic Exercise,Balance Retraining,Discharge Planning, Hot or Cold Pack,Neuromuscular Re-ed,Coordination Retraining Other Recommendations and Next Treatment bed mob, transfers, gait Focus distance w/ FWW Precautions Other Precautions falls Recommendations To Nursing Amount of Assist Needed 1 Person Assist Discharge Recommendations PT Discharge Recommendations SNF Rehab Transportation Needs at Discharge Private Vehicle,Wheelchair/ Cabulance
[2021-07-18 12:17] VITALS: O2SAT 95
[2021-07-18 14:26] LABS: BUN Creatinine Ratio 48.7 (6-22); Blood Urea Nitrogen 56 mg/dL (7-17); Calcium 8.8 mg/dL (8.4-10.2); Carbon Dioxide 16 mmol/L (22-32); Chloride 120 mmol/L (98-107); Estimated Glomerular Filt Rate 45.2 mL/min (>60); Glucose 79 mg/dL (80-110); HEMOLYSIS < 15 (0-50); Sodium 138 mmol/L (137-145)
[2021-07-18 14:28] LABS: Potassium 5.9 mmol/L (3.4-5.1)
--- NOTE | 2021-07-18 14:49 | PC.NURSE ---
1445: 2 PIVs and monitoring equipment removed. Pt and family updated on med changes per Dr Cordoba. Facility rep transported pt via wheelchair to main entrance.
--- NOTE | 2021-07-18 16:22 | CM.DPNOTE ---
DC Note DC today to [facility]; patient's dtr Rina and spouse aware and agreeable to plan. Transport initially arranged for p/u at 1100 and pushed back to 1430 for clinical reasons, lab draw and results were needed before clearance to DC completely W/assistance from KAI Flynn, all DC ppk faxed to [facility] including completed and signed PASRR. COVID PCR was updated. Coordinated this DC w/ October/[facility]. Nurse report called to [place] plan: DC this afternoon to [facility] via w/c JW
== END 2021-07-18 14:55 | DRG 682 ==
LOC: ED 19:35 → AC 19:45 → ICU 07-16 09:06 → AC 07-22 07:56 → ICU 07-22 07:56
PROVIDERS: Emergency Medicine; Admitting Provider Internal Medicine; Emergency Provider Student in an Organized Health Care Education/Training Program; PCP Family Medicine; Referring Provider Student in an Organized Health Care Education/Training Program; Visit Provider Family Medicine
DX: N17.9 Acute kidney failure, unspecified (principal); G93.41 Metabolic encephalopathy; N39.0 Urinary tract infection, site not specified; I13.0 Hypertensive heart and chronic kidney disease with heart failure and stage 1 through stage 4 chronic kidney disease, or unspecified chronic kidney disease; I50.22 Chronic systolic (congestive) heart failure; E87.5 Hyperkalemia; N18.30 Chronic kidney disease, stage 3 unspecified; E03.9 Hypothyroidism, unspecified; B96.20 Unspecified Escherichia coli [E. coli] as the cause of diseases classified elsewhere; E11.649 Type 2 diabetes mellitus with hypoglycemia without coma; Z87.891 Personal history of nicotine dependence; Z20.822 Contact with and (suspected) exposure to COVID-19; Z95.0 Presence of cardiac pacemaker; Z79.4 Long term (current) use of insulin
CPT/HCPCS: 36415; 74176; 80048; 80053; 81003; 81015; 82805; 82962; 83690; 83735; 85025; 87077; 87086; 87186; 87635; 87797; 93005; 93306; 94640; 94760; 96365; 96375; 96376; 97162; 97166; 97530; 97535; 99284; C9803; J0610; J0696; J1170; J1815; J1885; J1940; J2405; J7613

== ENCOUNTER → 2021-07-21 11:27 | Outpatient (ROUT) | payer MEDICARE, SELFPAY ==
[2021-03-11 12:45] VITALS: PULSE 81; RESP 22; O2SAT 98
[2021-07-15 23:26] VITALS: BMI 26.2
[2021-07-21 15:14] LABS: Clostridium Difficile Tox PCR Negative for C. diff (Negative)
== END ==
PROVIDERS: PCP Family Medicine; Visit Provider Emergency Medicine
DX: R19.7 Diarrhea, unspecified (principal)
CPT/HCPCS: 87493

== ENCOUNTER 2021-08-08 13:09 | Emergency (ER) | payer MEDICARE, SELFPAY ==
[2021-03-11 12:45] VITALS: PULSE 81; RESP 22; O2SAT 98
[2021-07-15 23:26] VITALS: BMI 26.2
[2021-08-08] VITALS (8 sets, daily range): BP systolic 142–154; BP diastolic 68–81; PULSE 75–86; RESP 12–30; TEMP 37.1; O2SAT 92–96
--- NOTE | 2021-08-08 13:25 | ED.ABDPAIN ---
HPI - Abdominal Pain General Chief Complaint: Abdominal Pain Stated Complaint: Severe constipation, abd swelling x3 days Time Seen by Provider: 08/08/21 13:20 History of Present Illness HPI narrative: 80F former smoker with extensive medical history list including uremia, pacemaker, IBS, hypertension, CHF, diabetes, AFib presents with her in the chief complaint of swelling of both legs and constipation for the past few days. Her recent medical history is significant for a hospitalization in the end of June for acute kidney injury and hyperkalemia. After few days she has become stabilized and was discharged to [facility] the rehab and was just discharged home from there 4 days ago. It is unclear if she is taking her medications as directed and she does not know she has continued to take her diuretics or not. She does admit to increased swelling in her legs in her lower abdomen, decreased bowel movements and weight gain. She has a very poor historian as is her . She denies any chest pain or shortness of breath. She is not dizzy nor weak lightheaded. She has had no fever chills and denies chest pain or shortness of breath. She has no nausea or vomiting. Related Data Home Medications Medication Instructions Recorded Confirmed levothyroxine 100 mcg tablet 100 mcg PO DAILY 07/16/21 07/16/21 Previous Rx's Medication Instructions Recorded acetaminophen 325 mg tablet 650 mg PO Q6HR PRN #30 tab 05/31/19 insulin syringe-needle U-100 1 mL See Rx Instructions .ROUTE 09/10/20 30 gauge x 1/2 (BD Insulin .COMPLEX #100 ea Syringe Ultra-Fine) escitalopram oxalate 10 mg tablet 10 mg PO .HS #90 tab 11/06/20 insulin glargine 100 unit/mL 40 unit (0.4 mL) SUBCUT DAILY #10 11/19/20 subcutaneous solution (Lantus ml U-100 Insulin) DISABLED PARKING PERMIT #1 ea 03/11/21 memantine 5 mg tablet (Namenda) 5 mg PO .HS #90 tab 06/24/21 cephalexin 750 mg capsule 750 mg PO BID #7 cap 07/18/21 furosemide 40 mg tablet 40 mg PO DAILY #0 tab 07/18/21 Allergies Allergy/AdvReac Type Severity Reaction Status Date / Time egg Allergy Severe weakness Verified 08/08/21 13:29 on the right side of body after vaccine Anesthetics - Amide Type - Allergy Unknown Verified 08/08/21 13:29 Select A [ANESTHETICS - AMIDE TYPE] codeine [CODEINE] Allergy Unknown Verified 08/08/21 13:29 lidocaine [From XYLOCAINE] Allergy Unknown WHEN HAD Verified 08/08/21 13:29 TEETH WORKED ON lisinopril [LISINOPRIL] Allergy Unknown Verified 08/08/21 13:29 morphine [MORPHINE] Allergy Unknown Verified 08/08/21 13:29 oxycodone [OXYCODONE] Allergy Unknown Verified 08/08/21 13:29 Penicillins [PENICILLINS] Allergy Unknown Verified 08/08/21 13:29 influenza virus vaccine, Allergy weakness Verified 08/08/21 13:29 specific on the right side of body after vaccine Review of Systems Review of Systems Narrative: GENERAL: Denies chills, fatigue, malaise, fever, sweats. HEENT: Denies sinus pain, ear pain, sore throat, difficulty swallowing, dizziness. RESPIRATORY: Denies dyspnea, cough, wheezing, hemoptysis, sputum. CARDIOVASCULAR: See HP GASTROINTESTINAL: See HPI : Denies dysuria, frequency, incontinence, hematuria, urinary retention. MUSCULOSKELETAL: denies weakness, joint pain, or bony pain SKIN: Denies rash, skin lesions, or other NEUROLOGIC: Denies weakness, headache, numbness, change in speech, confusion, seizures, incoordination. PSYCHIATRIC: No concerning psychosocial issues. 12 point review of systems is negative except for those stated above Patient History Medical History Atrial fibrillation (09/20/10) Bilateral shoulder pain Bipolar disorder Bradycardia Cardiomyopathy Chronic diarrhea (06/10/16) Cognitive decline Controlled type 2 diabetes mellitus (09/20/10) Essential hypertension (09/20/10) Fatigue Head contusion History of Graves' disease History of placenta previa Irritable bowel syndrome Minor head injury without loss of consciousness Neuropathy of both feet Renal artery stenosis (09/20/10) Retinal scar Rheumatoid arthritis Right leg pain Sprain of left shoulder Stye Systolic congestive heart failure (09/20/10) Thyroid nodule Vision disorder Weakness Surgical History Anesthesia History of hip replacement History of knee replacement History of partial surgical removal of colon (06/10/16) Status post dilation and curettage Social History details: She is living with her in a trailer. She is a [employer] household members: spouse Smoking Status: Former smoker alcohol intake: former Smoking Status: Former smoker alcohol intake frequency: 0-2 drinks per day Substance Use Type: does not use Exam Narrative Exam Narrative: GENERAL: [80 year old patient appears stated age. Well-developed patient, in mild distress. HEAD: Atraumatic. Normocephalic. EYES: Pupils equal round and reactive. Extraocular motions intact. No scleral icterus. No injection or drainage. ENT: Nose without bleeding, purulent drainage. Throat without erythema, tonsillar hypertrophy or exudate. Airway patent. NECK: Trachea midline. Non tender CARDIOVASCULAR: Regular rate and rhythm without murmurs, gallops, or rubs. RESPIRATORY: No significant work of breathing, no use of accessory muscles, hypoxemia. Faint crackles in B/L bases GASTROINTESTINAL: Abdomen soft, non-tender, nondistended. EXTREMITIES: 2+ pitting edema B/L LE BACK: Nontender without deformity or crepitance. No flank tenderness. NEURO: AOx3. SKIN: No rash or erythema of visible areas Initial Vital Signs Initial Vital Signs: Vital Signs Temperature 98.8 F 08/08/21 13:23 Pulse Rate 76 08/08/21 13:23 Respiratory Rate 18 08/08/21 13:23 Blood Pressure 142/68 H 08/08/21 13:23 Pulse Oximetry 96 08/08/21 13:23 Course Orders Ordered: Discontinued Medications Furosemide (Furosemide 40 Mg/4 Ml Vial) 40 mg IV NOW ONE Stop: 08/08/21 15:52 Last Admin: 08/08/21 16:30 Dose: 40 mg Documented by: BTONER Vital Signs Vital signs: Vital Signs - 8 hr 08/08/21 13:23 08/08/21 15:12 08/08/21 15:30 Temperature 98.8 F Pulse Rate 76 75 80 Respiratory Rate 18 Blood Pressure 142/68 H 143/71 H Pulse Oximetry 96 92 93 MDM - Abdominal Pain Lab Data Result diagrams: 08/08/21 14:50 08/08/21 14:50 Labs: Lab Results 03/17/22 03/17/22 03/17/22 Range/Units 14:50 14:50 14:50 WBC 7.5 (4.5-11.0) X10^3/uL RBC 4.25 (4.0-5.2) X10^6/uL Hgb 11.9 L (12.0-16.0) g/dL Hct 36.3 (36-46) % MCV 85.5 (80-100) fL MCH 28.0 (26-34) PG MCHC 32.7 (30-36) % RDW 15.1 H (11.6-14.8) % Plt Count 240 (150-400) X10^3/uL Neut % (Auto) 64.4 (50-75) % Lymph % (Auto) 22.7 L (25-40) % [place] % (Auto) 8.8 (3-14) % Eos % (Auto) 3.0 (2-4) % Baso % (Auto) 1.1 (0-2) % Neut # (Auto) 4800 (6666-0788) /uL Lymph # (Auto) 1700 (7765-2234) /uL [place] # (Auto) 700 (0-900) /uL Eos # (Auto) 200 (0-450) /uL Baso # (Auto) 100 (0-100) /uL Sodium 141 (137-145) mmol/L Potassium 3.5 (3.4-5.1) mmol/L Chloride 106 (98-107) mmol/L Carbon Dioxide 28 (22-32) mmol/L BUN 24 H (7-17) mg/dL Creatinine 0.98 (0.52-1.04) mg/dL Estimated GFR 54.3 L (>60) mL/min BUN/Creatinine Ratio 24.5 H (6-22) Glucose 167 H (80-110) mg/dL Calcium 8.8 (8.4-10.2) mg/dL Total Bilirubin 0.5 (0.2-1.3) mg/dL AST 39 H (14-36) IU/L ALT 18 (<35) IU/L Alkaline Phosphatase 142 H (38-126) U/L Total Creatine Kinase 115 (30-135) U/L CK-MB (CK-2) 2.17 (<2.37) ng/mL CK-MB (CK-2) Rel Index 1.9 (1.5-5.0) % Troponin I 0.028 (0.01-0.034) ng/mL NT-Pro-B Natriuret Pep 6690 H (<450) pg/mL Total Protein 6.5 (6.3-8.2) g/dL Albumin 3.4 L (3.5-5.0) g/dL Globulin 3.1 (1.7-4.1) g/dL Albumin/Globulin Ratio 1.1 (1.0-2.8) Point of care testing: Urine Dip Bedside Urine Glucose Negative Bedside Urine Bilirubin - Negative Bedside Urine Ketone - Negative Urine Specific [place] 1.02 Bedside Urine Occult Blood - Negative Bedside Urine pH 5.5 Bedside Urine Protein - Negative Bedside Urine Urobilinogen - Negative Bedside Urine Nitrite - Negative Bedside Urine Leukocytes + 70 Esterase Imaging Data Abdominal x-ray: Radiologist's Impression: [address] [address] XRay Report Signed Patient: Batsheva Burgess MR#: [id number] : 1940 Acct:[id number] Age/Sex: 80 / F Date of Service: 08/08/21 Loc: ED Accession Number: [id number] ?? Procedure: XR acute abdomen series Ordering Provider: Agustin Pompa D.O. PROCEDURE:? XR ACUTE ABDOMEN SERIES ? INDICATIONS:? Abdominal pain ? TECHNIQUE:? One view chest and two views of the abdomen were acquired.? ? COMPARISON:? [facility], CR, XR CHEST 2 VIEWS, 11/05/2020, 18:22. ? FINDINGS:? ? Surgical changes and devices:? Single lead cardiac pacer is unchanged. ? Chest:? There are diffuse interstitial radiopacities bilaterally.? No focal airspace opacities.? No pleural effusion or pneumothorax. ? Abdomen:? Bowel gas pattern is normal.? No suspicious calcifications.? Visualized solid organ contours appear normal.? ? Bones:? No suspicious bony lesions.? ? IMPRESSION:? ? 1. Pulmonary edema. ? 2. Bowel gas pattern within normal limits.? ? ? Dictated by: Vanessa Nielsen M.D. on 08/08/2021 at 14:49 ? ? Approved by: Vanessa Nielsen M.D. on 08/08/2021 at 14:50 ? MDM Narrative Medical decision making narrative: History and physical exam are very reassuring., history and physical are certainly most consistent with fluid overload given the crackles in her bases and bilateral lower extremity edema. Given her report of constipation we did evaluate for bowel obstruction and this is thought extremely unlikely given her history exam and imaging. She admittedly has stopped taking her diuretic which is likely contributing as she denies any dietary change or significant fluid consumption. She has diuresed here in the department. She feels much better, vitals are stable. I have discussed this with her primary care provider and we sure the opinion she is appropriate for discharge and will have her resume her spironolactone but not her potassium supplementation. Return precautions discussed and questions answered to her apparent satisfaction Discharge Plan Departure Patient Disposition: Home Clinical Impression: Pulmonary edema, Constipation Instructions: Edema Activity Restrictions/Additional Instructions: *You have been diagnosed with [constipation and lower extremity swelling. Thankfully your history, physical exam, labs and imaging are all very reassuring it would seem that you of a slow buildup of fluid. I have discussed her case with Dr. Cardenas and he wants you to get started back on your spironolactone, but do not start your potassium again. *What to do: *Please continue to take your regular medications as directed. [ ] New medication prescriptions sent to your pharmacy: [ ] [ ] New medication written as a paper prescription [x ] No new medications given *Please follow up with your primary care provider in 2-3 days, call for an appointment. Let them know you were seen in the Emergency Department and that we ask that you be seen in follow up. We will electronically transmit a record of today's note if your PCP is in our system *If you do not have a primary care provider please contact the [facility] Resource line at [phone]. They will ask some questions about your medical history and help get you set up with a doctor in the community. *Return to Emergency Department if you should have any new, worsening or concerning symptoms, such as [fever greater than 101 F, shaking chills, worsening pain, persistent vomiting or other bothersome symptoms] Prescriptions: No Action (DME) DISABLED PARKING PERMIT See Rx Instructions .ROUTE .MEDSULY Qty: 1 0RF Rx Instructions: I find this patient to be medically disabled and qualified for disabled parking as indicated, and signed, on the accompanying Disabled Parking Application for Individuals. insulin syringe-needle U-100 [BD Insulin Syringe Ultra-Fine] 1 mL 30 gauge x 1/2 syringe See Rx Instructions .ROUTE .COMPLEX Qty: 100 3RF Dose Instruction: use as directed for daily insulin injections Rx Instructions: use as directed for daily insulin injections escitalopram oxalate 10 mg tablet 10 mg PO .HS Qty: 90 3RF Lantus U-100 Insulin 100 unit/mL solution 40 unit SUBCUT DAILY Qty: 10 11RF memantine [Namenda] 5 mg tablet 5 mg PO .HS Qty: 90 0RF acetaminophen 325 mg Tablet 650 mg PO Q6HR PRN (Reason: Fever/Mild Pain (1-3)) Qty: 30 0RF levothyroxine 100 mcg tablet 100 mcg PO DAILY 0RF Label Comments: TAKE ONE TABLET BY MOUTH ONE TIME DAILY furosemide 40 mg tablet 40 mg PO DAILY Qty: 0 0RF Label Comments: TAKE ONE TABLET BY MOUTH TWICE DAILY cephalexin 750 mg capsule 750 mg PO BID Qty: 7 0RF Referrals: Live Castro MD [Primary Care Provider] -
--- NOTE | 2021-08-08 13:27 | DI.RAD.S_ITS ---
PROCEDURE: XR ACUTE ABDOMEN SERIES INDICATIONS: Abdominal pain TECHNIQUE: One view chest and two views of the abdomen were acquired. COMPARISON: [facility], CR, XR CHEST 2 VIEWS, 11/05/2020, 18:22. FINDINGS: Surgical changes and devices: Single lead cardiac pacer is unchanged. Chest: There are diffuse interstitial radiopacities bilaterally. No focal airspace opacities. No pleural effusion or pneumothorax. Abdomen: Bowel gas pattern is normal. No suspicious calcifications. Visualized solid organ contours appear normal. Bones: No suspicious bony lesions. IMPRESSION: 1. Pulmonary edema. 2. Bowel gas pattern within normal limits. Dictated by: Vanessa Nielsen M.D. on 08/08/2021 at 14:49 Approved by: Vanessa Nielsen M.D. on 08/08/2021 at 14:50
--- NOTE | 2021-08-08 14:28 | PC.NURSE ---
Attempted IV access x2 unsuccessful, another RN attempted IV unsuccessful, lab called for labs, DI nurse called with an ETA 1630.
[2021-08-08 15:05] LABS: Add Manual Diff / Slide Review NO; Basophils Absolute Auto 100 /uL (0-100); Basophils Percent Auto 1.1 % (0-2); Eosinophils Absolute Auto 200 /uL (0-450); Hematocrit 36.3 % (36-46); Hemoglobin 11.9 g/dL (12.0-16.0); Lymphocytes Absolute Auto 1700 /uL (1100-4500); Lymphocytes Percent Auto 22.7 % (25-40); Mean Corpuscular HGB Conc 32.7 % (30-36); Mean Corpuscular Volume 85.5 fL (80-100); Monocytes Absolute Auto 700 /uL (0-900); Monocytes Percent Auto 8.8 % (3-14); Neutrophils Absolute Auto 4800 /uL (1500-7000); Neutrophils Percent Auto 64.4 % (50-75); Platelet Count 240 X10^3/uL (150-400); Red Blood Cell Count 4.25 X10^6/uL (4.0-5.2); Red Cell Distribution Width 15.1 % (11.6-14.8); White Blood Cell Count 7.5 X10^3/uL (4.5-11.0)
[2021-08-08 15:18] LABS: Alanine Aminotransferase 18 IU/L (<35); Albumin 3.4 g/dL (3.5-5.0); Albumin Globulin Ratio 1.1 (1.0-2.8); Alkaline Phosphatase 142 U/L (38-126); Aspartate Aminotransferase 39 IU/L (14-36); BUN Creatinine Ratio 24.5 (6-22); Bilirubin Total 0.5 mg/dL (0.2-1.3); Blood Urea Nitrogen 24 mg/dL (7-17); Calcium 8.8 mg/dL (8.4-10.2); Carbon Dioxide 28 mmol/L (22-32); Chloride 106 mmol/L (98-107); Creatine Kinase 115 U/L (30-135); Estimated Glomerular Filt Rate 54.3 mL/min (>60); Globulin 3.1 g/dL (1.7-4.1); Glucose 167 mg/dL (80-110); HEMOLYSIS < 15 (0-50); Potassium 3.5 mmol/L (3.4-5.1); Sodium 141 mmol/L (137-145); Total Protein 6.5 g/dL (6.3-8.2)
[2021-08-08 15:30] LABS: NT-proBNP (BNP-Adult 18+) 6690 pg/mL (<450); Troponin I 0.028 ng/mL (0.01-0.034)
[2021-08-08 15:33] LABS: CKMB % Relative Index 1.9 % (1.5-5.0); Creatine Kinase MB 2.17 ng/mL (<2.37)
[2021-08-08] MEDS: FUROSEMIDE 40 MG/4 ML VIAL IV (16:30)
== END 2021-08-08 18:08 | disposition home or self-care (01) ==
PROVIDERS: Emergency Provider Emergency Medicine; PCP Family Medicine
DX: J81.1 Chronic pulmonary edema (principal); K59.00 Constipation, unspecified; Z87.891 Personal history of nicotine dependence
CPT/HCPCS: 36415; 51798; 74022; 80053; 81003; 82550; 82553; 83880; 84484; 85025; 96374; 99284; J1940

== ENCOUNTER 2021-08-16 13:10 | Observation (INO) | payer MEDICARE, SELFPAY ==
[2021-03-11 12:45] VITALS: PULSE 81; RESP 22; O2SAT 98
[2021-07-15 23:26] VITALS: BMI 26.2
[2021-08-16] VITALS (18 sets, daily range): BP systolic 99–144; BP diastolic 59–77; PULSE 73–81; RESP 20–26; TEMP 36.6; O2SAT 88–97; BMI 28.3
--- NOTE | 2021-08-16 13:28 | DI.RAD.S_ITS ---
PROCEDURE: XR CHEST 2V INDICATIONS: shortness of breath TECHNIQUE: 2 views of the chest were acquired. COMPARISON: [facility], CT, CT ABDOMEN PELVIS WO CON, 07/15/2021, 17:18. [facility], CR, XR CHEST 1V, 05/28/2019, 10:09. [facility], CR, XR CHEST 1V, 05/25/2019, 2:04. FINDINGS: Surgical changes and devices: Left pacemaker with right ventricular lead. Lungs and pleura: Mild hazy airspace opacity bilaterally. Small bilateral pleural effusions. No pneumothorax.. Mediastinum: Mediastinal contours are unchanged. Heart size is normal. Bones and chest wall: No suspicious bony abnormalities. Soft tissues appear unremarkable. IMPRESSION: Mild fluid overload/CHF. Small bilateral pleural effusions. Dictated by: Josef Willis M.D. on 08/16/2021 at 14:04 Approved by: Josef Willis M.D. on 08/16/2021 at 14:05
[2021-08-16 14:26] LABS: Add Manual Diff / Slide Review NO; Basophils Absolute Auto 100 /uL (0-100); Basophils Percent Auto 0.9 % (0-2); Eosinophils Absolute Auto 100 /uL (0-450); Eosinophils Percent Auto 1.6 % (2-4); Lymphocytes Absolute Auto 1600 /uL (1100-4500); Lymphocytes Percent Auto 18.3 % (25-40); Mean Corpuscular HGB Conc 33.2 % (30-36); Mean Corpuscular Hemoglobin 28.4 PG (26-34); Mean Corpuscular Volume 85.6 fL (80-100); Monocytes Absolute Auto 600 /uL (0-900); Monocytes Percent Auto 7.4 % (3-14); Neutrophils Absolute Auto 6100 /uL (1500-7000); Neutrophils Percent Auto 71.8 % (50-75); Platelet Count 264 X10^3/uL (150-400); Red Blood Cell Count 4.56 X10^6/uL (4.0-5.2); Red Cell Distribution Width 15.7 % (11.6-14.8); White Blood Cell Count 8.6 X10^3/uL (4.5-11.0)
[2021-08-16 14:38] LABS: Lactate (Lactic Acid) 1.7 mmol/L (0.7-2.1)
[2021-08-16 14:39] LABS: Alanine Aminotransferase 27 IU/L (<35); Albumin Globulin Ratio 1.3 (1.0-2.8); Alkaline Phosphatase 164 U/L (38-126); Aspartate Aminotransferase 38 IU/L (14-36); BUN Creatinine Ratio 28.2 (6-22); Bilirubin Total 0.7 mg/dL (0.2-1.3); Blood Urea Nitrogen 33 mg/dL (7-17); Calcium 9.2 mg/dL (8.4-10.2); Carbon Dioxide 24 mmol/L (22-32); Chloride 107 mmol/L (98-107); Estimated Glomerular Filt Rate 44.3 mL/min (>60); Globulin 3.2 g/dL (1.7-4.1); Glucose 161 mg/dL (80-110); HEMOLYSIS < 15 (0-50); Potassium 3.6 mmol/L (3.4-5.1); Sodium 141 mmol/L (137-145); Total Protein 7.2 g/dL (6.3-8.2)
--- NOTE | 2021-08-16 14:45 | ED.SOB ---
HPI - SOB/Dyspnea General Chief Complaint: Shortness of Breath/Dyspnea Stated Complaint: hard time to breath x2days Time Seen by Provider: 08/16/21 14:24 Source: patient Mode of arrival: Family Vehicle Limitations: no limitations History of Present Illness HPI Narrative: This 80-year-old patient with diabetes cardiomyopathy, AFib and CHF presents with shortness of breath. She takes both Lasix and Spironolactone. She was seen by her PCM yesterday, seemed to be doing well. Since she has developed the shortness of breath. She has peripheral edema. She has specially has orthopnea, with dyspnea exacerbated the last 2 nights. She has a chronic cough. She has no fever, chills or sweats. She notes her legs are swollen, that is not uncommon. She cannot indicate if the edema has increased. She has no chest pain. She denies palpitations. She is sitting, currently asymptomatic, during this evaluation. She has multiple recent evaluations, she has a persistently slightly elevated troponin. Echo last week shows normal LV size with EF 40-45%. There is significant dyssynchronous contraction pattern due to paced rhythm. She has normal right ventricular size. There is mild aortic stenosis. Related Data Home Medications Medication Instructions Recorded Confirmed levothyroxine 100 mcg tablet 100 mcg PO DAILY 07/16/21 08/15/21 Previous Rx's Medication Instructions Recorded acetaminophen 325 mg tablet 650 mg PO Q6HR PRN #30 tab 05/31/19 insulin syringe-needle U-100 1 mL See Rx Instructions .ROUTE 09/10/20 30 gauge x 1/2 (BD Insulin .COMPLEX #100 ea Syringe Ultra-Fine) escitalopram oxalate 10 mg tablet 10 mg PO .HS #90 tab 11/06/20 insulin glargine 100 unit/mL 40 unit (0.4 mL) SUBCUT DAILY #10 11/19/20 subcutaneous solution (Lantus ml U-100 Insulin) DISABLED PARKING PERMIT #1 ea 03/11/21 memantine 5 mg tablet (Namenda) 5 mg PO .HS #90 tab 06/24/21 furosemide 40 mg tablet 40 mg PO DAILY #0 tab 07/18/21 spironolactone 25 mg tablet 25 mg PO DAILY #90 tab 08/15/21 Allergies Allergy/AdvReac Type Severity Reaction Status Date / Time egg Allergy Severe weakness Verified 08/15/21 10:01 on the right side of body after vaccine Anesthetics - Amide Type - Allergy Unknown Verified 08/15/21 10:01 Select A [ANESTHETICS - AMIDE TYPE] codeine [CODEINE] Allergy Unknown Verified 08/15/21 10:01 lidocaine [From XYLOCAINE] Allergy Unknown WHEN HAD Verified 08/15/21 10:01 TEETH WORKED ON lisinopril [LISINOPRIL] Allergy Unknown Verified 08/15/21 10:01 morphine [MORPHINE] Allergy Unknown Verified 08/15/21 10:01 oxycodone [OXYCODONE] Allergy Unknown Verified 08/15/21 10:01 Penicillins [PENICILLINS] Allergy Unknown Verified 08/15/21 10:01 influenza virus vaccine, Allergy weakness Verified 08/15/21 10:01 specific on the right side of body after vaccine Review of Systems Constitutional Constitutional: Reports as per HPI, Denies fatigue, Denies fever(s) and Denies headache(s) Eyes Eyes: Denies change in vision ENT Ears, Nose, Mouth, and Throat: Denies headache(s) Cardiovascular Cardiovascular: Denies chest pain, Denies syncope, Denies rapid heart rate, Reports pedal edema, Reports leg edema and Reports dyspnea Respiratory Respiratory: Reports chest congestion, Reports cough, Reports dyspnea and Denies wheezing Gastrointestinal Gastrointestinal: Denies abdominal pain, Denies nausea and Denies vomiting Genitourinary Comments: No urinary complaints. Musculoskeletal Musculoskeletal: Denies back pain and Denies arthralgias Integumentary/Breasts Skin/Breast: Denies new lesions and Denies rash Neurologic Neurologic: Denies syncope and Denies headache(s) Endocrine Endocrine: Denies fatigue Hematologic/Lymphatic On Anticoagulants: No Allergic/Immunologic Allergic/Immunologic: Denies wheezing Patient History Medical History Atrial fibrillation (09/20/10) Bilateral shoulder pain Bipolar disorder Bradycardia Cardiomyopathy Chronic diarrhea (06/10/16) Cognitive decline Controlled type 2 diabetes mellitus (09/20/10) Essential hypertension (09/20/10) Fatigue Head contusion History of Graves' disease History of placenta previa Irritable bowel syndrome Minor head injury without loss of consciousness Neuropathy of both feet Renal artery stenosis (09/20/10) Retinal scar Rheumatoid arthritis Right leg pain Sprain of left shoulder Stye Systolic congestive heart failure (04/29/11) Thyroid nodule Vision disorder Weakness Surgical History Anesthesia History of hip replacement History of knee replacement History of partial surgical removal of colon (06/10/16) Status post dilation and curettage Social History details: She is living with her in a trailer. She is a [employer] household members: spouse Smoking Status: Former smoker alcohol intake: former Smoking Status: Former smoker alcohol intake frequency: 0-2 drinks per day Substance Use Type: does not use Exam Initial Vital Signs Initial Vital Signs: Vital Signs Temperature 97.8 F 08/16/21 13:19 Pulse Rate 75 08/16/21 13:19 Respiratory Rate 20 08/16/21 13:19 Blood Pressure 137/65 08/16/21 13:19 Pulse Oximetry 94 08/16/21 13:19 Const General: cooperative and in distress HENMT Head: normocephalic and atraumatic Mouth: oral mucosae normal Throat: posterior oropharynx normal Eyes General: appearance normal, both eyes and all related structures Conjunctivae: conjunctivae normal Sclera: sclerae normal Pupils: PERRL EOM: EOM intact bilaterally Neck Neck: No JVD Chest Chest: normal inspection of the chest Resp Other: Bilateral rales throughout both lung cavazos. Cardio Rate: regular rate Rhythm: regular rhythm Heart Sounds: S1 normal, S2 normal, no click, no murmurs and no rubs GI Inspection: normal to inspection Palpation: soft and No tender Auscultation: normal bowel sounds Back/Spine/Pelvis Back: normal to inspection Skin General: no rashes or lesions noted Neuro General: patient alert, patient awake and no focal motor deficits Extrem General: full ROM Other: 3+ bilateral lower extremity edema. Negative Homans sign. Dorsalis pedis pulses are present bilaterally. Psych Mental Status: mental status grossly normal Course Course Course Narrative: The patient is in florid CHF on arrival. She is already taking Lasix and spironolactone. She has had significant diuresis after 40 mg of IV Lasix. She subjectively feels better. Bilateral rales persist. O2 sats vary from 86-94%. She does not want to lie down, she sure she still has persistent orthopnea. CXR confirms CHF, small bilateral pleural effusions are present. EKG shows a paced ventricular rhythm. Her situation was discussed with Dr. Pineda, the on-call physician for her PCM. Repeat troponin shows no significant change. Her BNP remains quite elevated. Orders Ordered: ED Orders 08/16/21 13:28 XR chest 2V Stat EKG-12 Lead Stat Measure peak expiratory flow ONCE RT Consult Eval and Treat Now 08/16/21 14:00 BNP [NT-proBNP (BNP-Adult 18+)] Stat COVID19 -Nasal swab/Pre-Proc Stat Complete Blood Count AUTO DIFF Stat Comprehensive Metabolic Panel Stat Lactate (Lactic Acid) Stat Troponin & CK Cardiac Panel Stat 08/16/21 18:45 BNP [NT-proBNP (BNP-Adult 18+)] Stat Trop I [Troponin I] Stat 08/17/21 06:26 CBC Auto Diff [Complete Blood Count AUTO DIFF] Stat 08/17/21 06:32 BMP [Basic Metabolic Panel] Stat Troponin & CK Cardiac Panel Stat 08/17/21 06:34 BNP [NT-proBNP (BNP-Adult 18+)] Stat Discontinued Medications Furosemide (Furosemide 40 Mg/4 Ml Vial) 40 mg IV NOW ONE Stop: 08/16/21 14:52 Last Admin: 08/16/21 15:36 Dose: 40 mg Documented by: FIDELIA Furosemide (Furosemide 40 Mg Tablet) 40 mg PO NOW ONE Stop: 08/16/21 19:24 Potassium Chloride (Potassium Chloride 20 Meq Tab) 40 meq PO NOW ONE Stop: 08/16/21 19:24 Vital Signs Vital signs: Vital Signs - 8 hr 08/16/21 13:19 08/16/21 14:24 08/16/21 14:27 Temperature 97.8 F Pulse Rate 75 75 76 Respiratory Rate 20 26 H Blood Pressure 137/65 126/59 L Pulse Oximetry 94 93 93 08/16/21 14:30 08/16/21 15:00 08/16/21 15:30 Temperature Pulse Rate 75 77 75 Respiratory Rate Blood Pressure Pulse Oximetry 92 92 95 08/16/21 15:38 08/16/21 16:03 08/16/21 16:05 Temperature Pulse Rate 78 77 76 Respiratory Rate Blood Pressure 144/77 H 99/74 Pulse Oximetry 95 88 L 95 08/16/21 16:30 08/16/21 17:00 Temperature Pulse Rate 75 77 Respiratory Rate Blood Pressure 136/70 120/63 Pulse Oximetry 97 92 MDM - SOB/Dyspnea Lab Data Result diagrams: 08/16/21 14:00 08/16/21 14:00 Labs: Lab Results 08/16/21 08/16/21 08/16/21 Range/Units 14:00 14:00 14:00 WBC 8.6 (4.5-11.0) X10^3/uL RBC 4.56 (4.0-5.2) X10^6/uL Hgb 13.0 (12.0-16.0) g/dL Hct 39.0 (36-46) % MCV 85.6 (80-100) fL MCH 28.4 (26-34) PG MCHC 33.2 (30-36) % RDW 15.7 H (11.6-14.8) % Plt Count 264 (150-400) X10^3/uL Neut % (Auto) 71.8 (50-75) % Lymph % (Auto) 18.3 L (25-40) % [place] % (Auto) 7.4 (3-14) % Eos % (Auto) 1.6 L (2-4) % Baso % (Auto) 0.9 (0-2) % Neut # (Auto) 6100 (9454-6489) /uL Lymph # (Auto) 1600 (2203-3006) /uL [place] # (Auto) 600 (0-900) /uL Eos # (Auto) 100 (0-450) /uL Baso # (Auto) 100 (0-100) /uL Sodium 141 (137-145) mmol/L Potassium 3.6 (3.4-5.1) mmol/L Chloride 107 (98-107) mmol/L Carbon Dioxide 24 (22-32) mmol/L BUN 33 H (7-17) mg/dL Creatinine 1.17 H (0.52-1.04) mg/dL Estimated GFR 44.3 L (>60) mL/min BUN/Creatinine Ratio 28.2 H (6-22) Glucose 161 H (80-110) mg/dL Lactate 1.7 (0.7-2.1) mmol/L Calcium 9.2 (8.4-10.2) mg/dL Total Bilirubin 0.7 (0.2-1.3) mg/dL AST 38 H (14-36) IU/L ALT 27 (<35) IU/L Alkaline Phosphatase 164 H (38-126) U/L Total Creatine Kinase (30-135) U/L CK-MB (CK-2) (<2.37) ng/mL CK-MB (CK-2) Rel Index (1.5-5.0) % Troponin I (0.01-0.034) ng/mL NT-Pro-B Natriuret Pep (<450) pg/mL Total Protein 7.2 (6.3-8.2) g/dL Albumin 4.0 (3.5-5.0) g/dL Globulin 3.2 (1.7-4.1) g/dL Albumin/Globulin Ratio 1.3 (1.0-2.8) SARS-CoV-2 (PCR) (Negative) 08/16/21 08/16/21 08/16/21 Range/Units 14:00 14:00 14:00 WBC (4.5-11.0) X10^3/uL RBC (4.0-5.2) X10^6/uL Hgb (12.0-16.0) g/dL Hct (36-46) % MCV (80-100) fL MCH (26-34) PG MCHC (30-36) % RDW (11.6-14.8) % Plt Count (150-400) X10^3/uL Neut % (Auto) (50-75) % Lymph % (Auto) (25-40) % [place] % (Auto) (3-14) % Eos % (Auto) (2-4) % Baso % (Auto) (0-2) % Neut # (Auto) (4775-7758) /uL Lymph # (Auto) (5614-8504) /uL [place] # (Auto) (0-900) /uL Eos # (Auto) (0-450) /uL Baso # (Auto) (0-100) /uL Sodium (137-145) mmol/L Potassium (3.4-5.1) mmol/L Chloride (98-107) mmol/L Carbon Dioxide (22-32) mmol/L BUN (7-17) mg/dL Creatinine (0.52-1.04) mg/dL Estimated GFR (>60) mL/min BUN/Creatinine Ratio (6-22) Glucose (80-110) mg/dL Lactate (0.7-2.1) mmol/L Calcium (8.4-10.2) mg/dL Total Bilirubin (0.2-1.3) mg/dL AST (14-36) IU/L ALT (<35) IU/L Alkaline Phosphatase (38-126) U/L Total Creatine Kinase 115 (30-135) U/L CK-MB (CK-2) 2.30 (<2.37) ng/mL CK-MB (CK-2) Rel Index 2.0 (1.5-5.0) % Troponin I 0.103 H (0.01-0.034) ng/mL NT-Pro-B Natriuret Pep 9150 H (<450) pg/mL Total Protein (6.3-8.2) g/dL Albumin (3.5-5.0) g/dL Globulin (1.7-4.1) g/dL Albumin/Globulin Ratio (1.0-2.8) SARS-CoV-2 (PCR) Negative (Negative) 08/16/21 Range/Units 18:45 WBC (4.5-11.0) X10^3/uL RBC (4.0-5.2) X10^6/uL Hgb (12.0-16.0) g/dL Hct (36-46) % MCV (80-100) fL MCH (26-34) PG MCHC (30-36) % RDW (11.6-14.8) % Plt Count (150-400) X10^3/uL Neut % (Auto) (50-75) % Lymph % (Auto) (25-40) % [place] % (Auto) (3-14) % Eos % (Auto) (2-4) % Baso % (Auto) (0-2) % Neut # (Auto) (2529-4079) /uL Lymph # (Auto) (7202-3607) /uL [place] # (Auto) (0-900) /uL Eos # (Auto) (0-450) /uL Baso # (Auto) (0-100) /uL Sodium (137-145) mmol/L Potassium (3.4-5.1) mmol/L Chloride (98-107) mmol/L Carbon Dioxide (22-32) mmol/L BUN (7-17) mg/dL Creatinine (0.52-1.04) mg/dL Estimated GFR (>60) mL/min BUN/Creatinine Ratio (6-22) Glucose (80-110) mg/dL Lactate (0.7-2.1) mmol/L Calcium (8.4-10.2) mg/dL Total Bilirubin (0.2-1.3) mg/dL AST (14-36) IU/L ALT (<35) IU/L Alkaline Phosphatase (38-126) U/L Total Creatine Kinase (30-135) U/L CK-MB (CK-2) (<2.37) ng/mL CK-MB (CK-2) Rel Index (1.5-5.0) % Troponin I 0.116 H (0.01-0.034) ng/mL NT-Pro-B Natriuret Pep 79716 H (<450) pg/mL Total Protein (6.3-8.2) g/dL Albumin (3.5-5.0) g/dL Globulin (1.7-4.1) g/dL Albumin/Globulin Ratio (1.0-2.8) SARS-CoV-2 (PCR) (Negative) Imaging Data Chest x-ray: Radiologist's Impression: Bilateral pleural effusions. CHF. ECG Data Attestation: I personally reviewed and interpreted this ECG as follows: (Paced rhythm rate 75 beats per minute. No acute ST changes.) Critical Care Time Critical Care Time Critical Care Time: Yes Total Critical Care Time: 50 Attestation: Critical time includes initial patient evaluation, review of past medical records, review of Radiology, EKG and lab data. Multiple clinical decisions were required. Multiple conversations occurred between myself in the mid physician. Discharge Plan Departure Patient Disposition: Admitted as Observation Clinical Impression: Congestive heart failure, Diabetes, Essential hypertension, Acute renal failure Admit Date/Time: 08/16/21 19:37 Admit Provider: Pia Pineda
[2021-08-16 15:00] LABS: COVID19 -Nasal RAPID Negative (Negative)
[2021-08-16 15:23] LABS: Creatine Kinase 115 U/L (30-135)
[2021-08-16 15:34] LABS: NT-proBNP (BNP-Adult 18+) 9150 pg/mL (<450)
[2021-08-16 15:36] LABS: Troponin I 0.103 ng/mL (0.01-0.034)
[2021-08-16] MEDS: FUROSEMIDE 40 MG/4 ML VIAL IV (15:36)
[2021-08-16 19:13] LABS: NT-proBNP (BNP-Adult 18+) 10600 pg/mL (<450); Troponin I 0.116 ng/mL (0.01-0.034)
[2021-08-16] MEDS: FUROSEMIDE 40 MG TABLET PO (20:16)
[2021-08-16] MEDS: POTASSIUM CHLORIDE 20 MEQ TAB 40 MEQ PO (20:16)
[2021-08-16] MEDS: ESCITALOPRAM 10 MG TABLET PO (22:07)
[2021-08-16] MEDS: LORazepam 0.5 MG TABLET PO (22:07)
[2021-08-17 00:30] VITALS: BP 122/64; PULSE 77; RESP 16; O2SAT 95
--- NOTE | 2021-08-17 00:54 | PC.NURSE ---
Pt. was admitted to room 207 by Sj Duran RN. Spouse was staying with the patient. Oriented her room, instructed to call for assistance if she needed to get up to the BR. Reported recent fall at home, chair alarm clipped to her gown. Patient does not want to sleep in bed, states I'm having difficulty breathing if I lay in bed. Sleeping soundly in the recliner, at 0027 BOBBIN DOFFER. called & notified that patient's has a run of 9 beats of V-tach. Checked pt. again she was sound asleep. But roused without any problem, reassessed her she denies any chest pain, no C/O dyspnea. VSS B/P 122/64, HR 77, RR 16 & SPO2 in RA 95%. Pt. & spouse are unhappy that I was in the room to checked patient. Informed pt. & spouse that it's our responsibility to monitor & make ensure patient's status is stable. Will monitor & continue POC.
[2021-08-17] MEDS: LEVOTHYROXINE 100 MCG TABLET PO (05:34)
[2021-08-17 05:36] VITALS: BP 126/62; PULSE 76; RESP 20; TEMP 36.7; O2SAT 96
[2021-08-17 06:00] LABS: Add Manual Diff / Slide Review NO; Basophils Absolute Auto 100 /uL (0-100); Eosinophils Absolute Auto 200 /uL (0-450); Eosinophils Percent Auto 2.3 % (2-4); Hematocrit 38.4 % (36-46); Hemoglobin 12.8 g/dL (12.0-16.0); Lymphocytes Absolute Auto 1900 /uL (1100-4500); Lymphocytes Percent Auto 24.5 % (25-40); Mean Corpuscular HGB Conc 33.2 % (30-36); Mean Corpuscular Hemoglobin 28.3 PG (26-34); Mean Corpuscular Volume 85.2 fL (80-100); Monocytes Absolute Auto 800 /uL (0-900); Monocytes Percent Auto 10.3 % (3-14); Neutrophils Absolute Auto 4900 /uL (1500-7000); Neutrophils Percent Auto 61.9 % (50-75); Platelet Count 261 X10^3/uL (150-400); Red Blood Cell Count 4.51 X10^6/uL (4.0-5.2); Red Cell Distribution Width 15.7 % (11.6-14.8); White Blood Cell Count 7.9 X10^3/uL (4.5-11.0)
[2021-08-17 06:11] LABS: BUN Creatinine Ratio 25.6 (6-22); Blood Urea Nitrogen 30 mg/dL (7-17); Carbon Dioxide 24 mmol/L (22-32); Chloride 110 mmol/L (98-107); Creatine Kinase 77 U/L (30-135); Estimated Glomerular Filt Rate 44.3 mL/min (>60); Glucose 89 mg/dL (80-110); HEMOLYSIS < 15 (0-50); Potassium 3.7 mmol/L (3.4-5.1); Sodium 141 mmol/L (137-145)
[2021-08-17 06:19] LABS: NT-proBNP (BNP-Adult 18+) 6560 pg/mL (<450)
[2021-08-17 06:21] LABS: Troponin I 0.084 ng/mL (0.01-0.034)
[2021-08-17 07:00] VITALS: BP 117/69; PULSE 72; RESP 20; TEMP 36.8; O2SAT 94
[2021-08-17] MEDS: ESCITALOPRAM 10 MG TABLET PO (09:01)
[2021-08-17] MEDS: MEMANTINE HCL 5 MG TABLET PO (09:01)
[2021-08-17] MEDS: SPIRONOLACTONE 25 MG TABLET PO (09:01)
[2021-08-17] MEDS: FUROSEMIDE 40 MG/4 ML VIAL IV (09:01)
[2021-08-17] MEDS: SODIUM CHLORIDE 0.9% FLUSH 10 ML IV (09:02)
[2021-08-17] MEDS: ACETAMINOPHEN 325 MG TABLET 650 MG PO (09:03)
[2021-08-17 11:00] VITALS: BP 109/67; PULSE 70; RESP 19; TEMP 36.8; O2SAT 98
--- NOTE | 2021-08-17 12:13 | PM.HP.1 ---
History of Present Illness History of Present Illness Date Patient Seen: 08/17/21 Time Patient Seen: 12:14 Date of Onset of Symptoms: 08/15/21 Chief complaint: hard time to breath x2days Narrative: 80-year-old female with history of cognitive dysfunction and congestive heart failure as well as history of possible bipolar disorder who presents emergency room with progressive worsening respiratory difficulty. Patient was hospitalized in June with CHF exacerbation and then was in a skilled care facility briefly. She saw her primary care physician the day prior to admission for follow-up from hospital and skilled care facility and there was concern for confusion with the medications and what she was taking. He placed her on furosemide 40 mg a day as well as spironolactone 25 mg a day. Patient lives in a in a [place] with her who is her caregiver who is cognitively intact. She previously had been on Herminio inhibitor and metoprolol but due to acute kidney injury she was taken off at this. She recently had echo which shows ejection fraction 40-45%. She also has a pacemaker and on the echo which shows dyssynchronous rhythm which has not changed from the echo 1 year prior. The patient received IV diuresis overnight and is feeling much better. She is continued on room air throughout her hospital stay. She did require some oxygen when she 1st presented to the ER but not since she was admitted to the floor. She still has some lower extremity edema. Patient feels better than she did last night. Is difficult to get a history from her because she is continually argumentative and complaining that the hospital caused her to have heart failure and that the ER doctor lie to her and said she would be only admitted overnight. She wants to go home immediately. They do not want the insulin that she needs regarding sliding scale. She has received her Lantus this morning Patient denies any chest pain. Patient denies any palpitations. Patient denies any syncope or presyncope. Patient denies any fevers or chills or cough. Patient denies any decreased exercise tolerance. Patient denies any urine symptoms or GI symptoms or headaches. Past medical history: 1. Atrial fibrillation now with pacemaker 2. Bipolar disorder 3. Cognitive dysfunction on Namenda 4. Congestive heart failure with recent echo showing ejection fraction 40-45% 5. Type 2 diabetes, insulin-dependent 6. HTN 7. IBS PSH: Status post hip replacement Status post knee replacement Partial colectomy Multiple drug allergies Family history Negative for congestive heart failure Social history: Patient is and lives in and [facility] with her . He is supportive Patient History Medical History Atrial fibrillation (09/20/10) Bilateral shoulder pain Bipolar disorder Bradycardia Cardiomyopathy Chronic diarrhea (06/10/16) Cognitive decline Controlled type 2 diabetes mellitus (09/20/10) Essential hypertension (09/20/10) Fatigue Head contusion History of Graves' disease History of placenta previa Irritable bowel syndrome Minor head injury without loss of consciousness Neuropathy of both feet Renal artery stenosis (09/20/10) Retinal scar Rheumatoid arthritis Right leg pain Sprain of left shoulder Stye Systolic congestive heart failure (09/20/10) Thyroid nodule Vision disorder Weakness Surgical History Anesthesia History of hip replacement History of knee replacement History of partial surgical removal of colon (06/10/16) Status post dilation and curettage Family & Social History Social History: household members spouse Prior Living Arrangements House Safety & Behavioral: Feels Safe in Current Yes Environment Been Physically Hurt or No Threatened By a Person Suicidal Ideation Description None Suicide Plan Description No Plan Tobacco & Substance use: Tobacco type cigarettes Smoking Status Former smoker alcohol intake former alcohol intake frequency 0-2 drinks per day Substance Use Type does not use Meds Home Medications and Allergies Home Medications Medication Instructions Recorded Confirmed Type acetaminophen 325 mg tablet 650 mg PO Q6HR PRN #30 tab 05/31/19 08/16/21 Rx insulin syringe-needle U-100 1 mL See Rx Instructions .ROUTE 09/10/20 08/16/21 Rx 30 gauge x 1/2 (BD Insulin .COMPLEX #100 ea Syringe Ultra-Fine) escitalopram oxalate 10 mg tablet 10 mg PO .HS #90 tab 11/06/20 08/16/21 Rx insulin glargine 100 unit/mL 40 unit (0.4 mL) SUBCUT DAILY #10 11/19/20 08/16/21 Rx subcutaneous solution (Lantus ml U-100 Insulin) DISABLED PARKING PERMIT #1 ea 03/11/21 08/16/21 Rx memantine 5 mg tablet (Namenda) 5 mg PO .HS #90 tab 06/24/21 08/16/21 Rx levothyroxine 100 mcg tablet 100 mcg PO DAILY 07/16/21 08/16/21 History spironolactone 25 mg tablet 25 mg PO DAILY #90 tab 08/15/21 08/16/21 Rx furosemide 40 mg tablet 40 mg PO BID #0 tab 08/17/21 08/16/21 Rx Allergies Allergy/AdvReac Type Severity Reaction Status Date / Time egg Allergy Severe weakness Verified 08/15/21 10:01 on the right side of body after vaccine Anesthetics - Amide Type - Allergy Unknown Verified 08/15/21 10:01 Select A [ANESTHETICS - AMIDE TYPE] codeine [CODEINE] Allergy Unknown Verified 08/15/21 10:01 lidocaine [From XYLOCAINE] Allergy Unknown WHEN HAD Verified 08/15/21 10:01 TEETH WORKED ON lisinopril [LISINOPRIL] Allergy Unknown Verified 08/15/21 10:01 morphine [MORPHINE] Allergy Unknown Verified 08/15/21 10:01 oxycodone [OXYCODONE] Allergy Unknown Verified 08/15/21 10:01 Penicillins [PENICILLINS] Allergy Unknown Verified 08/15/21 10:01 influenza virus vaccine, Allergy weakness Verified 08/15/21 10:01 specific on the right side of body after vaccine Review of Systems Review of Systems Narrative: negative for black tarry stools, abdominal pain negative for breathing problems, cp Twelve point review of systems is negative other than HPI Exam Vital Signs (past 8 hours): - 08/17/21 05:36 08/17/21 07:00 08/17/21 11:00 Temperature 98.0 F 98.2 F 98.3 F Pulse Rate 76 72 70 Respiratory Rate 20 20 19 Blood Pressure 126/62 117/69 109/67 Pulse Oximetry 96 94 98 Oxygen Delivery Method Room Air Oxygen Flow Rate 0 Narrative Exam Narrative: Patient is a sitting upright in hospital chair. She is in no apparent distress, resting comfortably on room air with O2 sat of 90%. No increased work of breathing HEENT is unremarkable Neck: Supple without jugular venous distention or bruits or lymphadenopathy Chest: Clear to auscultation with bibasilar crackles. No wheezes rhonchi Cor: Distant S1-S2 with 2/6 systolic ejection murmur heard loudest at left upper sternal border Abdomen: Positive bowel sounds, soft, nontender, obese Extremities 1+ pitting edema Neurologic exam nonfocal Patient is a local alert and oriented to person and place Objective Labs Result Diagrams: 08/17/21 05:46 08/17/21 05:46 Labs: Laboratory Results - last 24 hr 08/16/21 08/16/21 08/16/21 14:00 14:00 14:00 WBC 8.6 RBC 4.56 Hgb 13.0 Hct 39.0 MCV 85.6 MCH 28.4 MCHC 33.2 RDW 15.7 H Plt Count 264 Neut % (Auto) 71.8 Lymph % (Auto) 18.3 L [place] % (Auto) 7.4 Eos % (Auto) 1.6 L Baso % (Auto) 0.9 Neut # (Auto) 6100 Lymph # (Auto) 1600 [place] # (Auto) 600 Eos # (Auto) 100 Baso # (Auto) 100 Sodium 141 Potassium 3.6 Chloride 107 Carbon Dioxide 24 BUN 33 H Creatinine 1.17 H Estimated GFR 44.3 L BUN/Creatinine Ratio 28.2 H Glucose 161 H Lactate 1.7 Calcium 9.2 Total Bilirubin 0.7 AST 38 H ALT 27 Alkaline Phosphatase 164 H Total Creatine Kinase CK-MB (CK-2) CK-MB (CK-2) Rel Index Troponin I NT-Pro-B Natriuret Pep Total Protein 7.2 Albumin 4.0 Globulin 3.2 Albumin/Globulin Ratio 1.3 SARS-CoV-2 (PCR) 08/16/21 08/16/21 08/16/21 14:00 14:00 14:00 WBC RBC Hgb Hct MCV MCH MCHC RDW Plt Count Neut % (Auto) Lymph % (Auto) [place] % (Auto) Eos % (Auto) Baso % (Auto) Neut # (Auto) Lymph # (Auto) [place] # (Auto) Eos # (Auto) Baso # (Auto) Sodium Potassium Chloride Carbon Dioxide BUN Creatinine Estimated GFR BUN/Creatinine Ratio Glucose Lactate Calcium Total Bilirubin AST ALT Alkaline Phosphatase Total Creatine Kinase 115 CK-MB (CK-2) 2.30 CK-MB (CK-2) Rel Index 2.0 Troponin I 0.103 H NT-Pro-B Natriuret Pep 9150 H Total Protein Albumin Globulin Albumin/Globulin Ratio SARS-CoV-2 (PCR) Negative 08/16/21 08/17/21 08/17/21 18:45 05:46 05:46 WBC 7.9 RBC 4.51 Hgb 12.8 Hct 38.4 MCV 85.2 MCH 28.3 MCHC 33.2 RDW 15.7 H Plt Count 261 Neut % (Auto) 61.9 Lymph % (Auto) 24.5 L [place] % (Auto) 10.3 Eos % (Auto) 2.3 Baso % (Auto) 1.0 Neut # (Auto) 4900 Lymph # (Auto) 1900 [place] # (Auto) 800 Eos # (Auto) 200 Baso # (Auto) 100 Sodium 141 Potassium 3.7 Chloride 110 H Carbon Dioxide 24 BUN 30 H Creatinine 1.17 H Estimated GFR 44.3 L BUN/Creatinine Ratio 25.6 H Glucose 89 Lactate Calcium 9.0 Total Bilirubin AST ALT Alkaline Phosphatase Total Creatine Kinase 77 CK-MB (CK-2) TNP CK-MB (CK-2) Rel Index TNP Troponin I 0.116 H 0.084 H NT-Pro-B Natriuret Pep 35132 H Total Protein Albumin Globulin Albumin/Globulin Ratio SARS-CoV-2 (PCR) 08/17/21 05:46 WBC RBC Hgb Hct MCV MCH MCHC RDW Plt Count Neut % (Auto) Lymph % (Auto) [place] % (Auto) Eos % (Auto) Baso % (Auto) Neut # (Auto) Lymph # (Auto) [place] # (Auto) Eos # (Auto) Baso # (Auto) Sodium Potassium Chloride Carbon Dioxide BUN Creatinine Estimated GFR BUN/Creatinine Ratio Glucose Lactate Calcium Total Bilirubin AST ALT Alkaline Phosphatase Total Creatine Kinase CK-MB (CK-2) CK-MB (CK-2) Rel Index Troponin I NT-Pro-B Natriuret Pep 6560 H Total Protein Albumin Globulin Albumin/Globulin Ratio SARS-CoV-2 (PCR) Assessment & Plan Assessment & Plan narrative: 80-year-old female admitted as observation patient for overnight diuresis with IV Lasix for acute on chronic systolic heart failure Plan: Patient will be discharged home in improved conditon, Increase Lasix to 40 mg in the morning and 40 mg at noon. Continue spironolactone 25 mg daily Electrolytes are good. She was given oral potassium yesterday She will follow-up with Dr. Castro this week. Discussed the importance of following up with him to reassess her fluid status and her electrolytes. Due to increasing the dose of furosemide and previous acute kidney injury I will not start lisinopril metoprolol but hopefully the lisinopril can be started next week. We discussed the benefits of this medication how it helps with heart failure. Also I recommend she follow-up with her food and beverage assistant. Assessment 2. Hypertension well controlled Plan: Continue to monitor Assessment 3. Insulin-dependent diabetes Plan: Continue with outpatient regimen Assessment number for cognitive dysfunction on Namenda Plan: May benefit from optimizing medications considering an antipsychotic as well for agitation and irritability as well as some delusions. At this point patient is stable and at her baseline per . She will follow-up with Dr. Castro Assessment 5. Diagnosis of bipolar versus depression currently on escitalopram Plan: Will continue same outpatient medication. 65 minutes was spent with patient at bedside in discussing with nursing and formulating plan. Time Spent With Patient Critical Care time: I spent a total of [] minutes of critical care time on this patient's care today; this time is exclusive of procedural time. Quality VTE Deep Vein Thrombosis/Pulmonary Embolism Present on Admission: No
--- NOTE | 2021-08-17 12:37 | P.DS_ITS ---
History of Present Illness History of Present Illness Chief complaint: hard time to breath x2days Narrative: 80-year-old female with history of cognitive dysfunction and congestive heart failure as well as history of possible bipolar disorder who presents emergency room with progressive worsening respiratory difficulty. Patient was hospitalized in June with CHF exacerbation and then was in a skilled care facility briefly. She saw her primary care physician the day prior to admission for follow-up from hospital and skilled care facility and there was concern for confusion with the medications and what she was taking. He placed her on furosemide 40 mg a day as well as spironolactone 25 mg a day. Patient lives in a in a [place] with her who is her caregiver who is cognitively intact. She previously had been on Herminio inhibitor and metoprolol but due to acute kidney injury she was taken off at this. She recently had echo which shows ejection fraction 40-45%. She also has a pacemaker and on the echo which shows dyssynchronous rhythm which has not changed from the echo 1 year prior. The patient received IV diuresis overnight and is feeling much better. She is continued on room air throughout her hospital stay. She did require some oxygen when she 1st presented to the ER but not since she was admitted to the floor. She still has some lower extremity edema. Patient feels better than she did last night. Is difficult to get a history from her because she is continually argumentative and complaining that the hospital caused her to have heart failure and that the ER doctor lie to her and said she would be only admitted overnight. She wants to go home immediately. They do not want the insulin that she needs regarding sliding scale. She has received her Lantus this morning Patient denies any chest pain. Patient denies any palpitations. Patient denies any syncope or presyncope. Patient denies any fevers or chills or cough. Patient denies any decreased exercise tolerance. Patient denies any urine symptoms or GI symptoms or headaches. Past medical history: 1. Atrial fibrillation now with pacemaker 2. Bipolar disorder 3. Cognitive dysfunction on Namenda 4. Congestive heart failure with recent echo showing ejection fraction 40-45% 5. Type 2 diabetes, insulin-dependent 6. HTN 7. IBS PSH: Status post hip replacement Status post knee replacement Partial colectomy Multiple drug allergies Family history Negative for congestive heart failure Social history: Patient is and lives in and [place] with her . He is supportive Discharge Providers Provider Date of admission: 08/16/21 19:37 Discharge Date: 08/17/21 Primary care physician: Live Castro MD Discharge provider: Pia Pineda MD Summary Hospital Course Discharge Diagnosis: Acute on chronic systolic congestive Heart failure exacerbation Hospital Course: Patient admitted overnight and received IV diuresis. Discharge home on oral Lasix but increased by 40 mg daily. Follow-up with PCP next week. Status at Discharge Cognitive/behavioral status at discharge: at baseline, oriented Functional status at discharge: independent ambulation Overall status at discharge: patient is progressing back to baseline Exam Vital Signs (past 8 hours): - 08/17/21 05:36 08/17/21 07:00 08/17/21 11:00 Temperature 98.0 F 98.2 F 98.3 F Pulse Rate 76 72 70 Respiratory Rate 20 20 19 Blood Pressure 126/62 117/69 109/67 Pulse Oximetry 96 94 98 Oxygen Delivery Method Room Air Oxygen Flow Rate 0 Narrative Exam Narrative: Please see H&P exam Objective Labs Result Diagrams: 08/17/21 05:46 08/17/21 05:46 Labs: Laboratory Results - last 24 hr 08/16/21 08/16/21 08/16/21 14:00 14:00 14:00 WBC 8.6 RBC 4.56 Hgb 13.0 Hct 39.0 MCV 85.6 MCH 28.4 MCHC 33.2 RDW 15.7 H Plt Count 264 Neut % (Auto) 71.8 Lymph % (Auto) 18.3 L [place] % (Auto) 7.4 Eos % (Auto) 1.6 L Baso % (Auto) 0.9 Neut # (Auto) 6100 Lymph # (Auto) 1600 [place] # (Auto) 600 Eos # (Auto) 100 Baso # (Auto) 100 Sodium 141 Potassium 3.6 Chloride 107 Carbon Dioxide 24 BUN 33 H Creatinine 1.17 H Estimated GFR 44.3 L BUN/Creatinine Ratio 28.2 H Glucose 161 H Lactate 1.7 Calcium 9.2 Total Bilirubin 0.7 AST 38 H ALT 27 Alkaline Phosphatase 164 H Total Creatine Kinase CK-MB (CK-2) CK-MB (CK-2) Rel Index Troponin I NT-Pro-B Natriuret Pep Total Protein 7.2 Albumin 4.0 Globulin 3.2 Albumin/Globulin Ratio 1.3 SARS-CoV-2 (PCR) 08/16/21 08/16/21 08/16/21 14:00 14:00 14:00 WBC RBC Hgb Hct MCV MCH MCHC RDW Plt Count Neut % (Auto) Lymph % (Auto) [place] % (Auto) Eos % (Auto) Baso % (Auto) Neut # (Auto) Lymph # (Auto) [place] # (Auto) Eos # (Auto) Baso # (Auto) Sodium Potassium Chloride Carbon Dioxide BUN Creatinine Estimated GFR BUN/Creatinine Ratio Glucose Lactate Calcium Total Bilirubin AST ALT Alkaline Phosphatase Total Creatine Kinase 115 CK-MB (CK-2) 2.30 CK-MB (CK-2) Rel Index 2.0 Troponin I 0.103 H NT-Pro-B Natriuret Pep 9150 H Total Protein Albumin Globulin Albumin/Globulin Ratio SARS-CoV-2 (PCR) Negative 08/16/21 08/17/21 08/17/21 18:45 05:46 05:46 WBC 7.9 RBC 4.51 Hgb 12.8 Hct 38.4 MCV 85.2 MCH 28.3 MCHC 33.2 RDW 15.7 H Plt Count 261 Neut % (Auto) 61.9 Lymph % (Auto) 24.5 L [place] % (Auto) 10.3 Eos % (Auto) 2.3 Baso % (Auto) 1.0 Neut # (Auto) 4900 Lymph # (Auto) 1900 [place] # (Auto) 800 Eos # (Auto) 200 Baso # (Auto) 100 Sodium 141 Potassium 3.7 Chloride 110 H Carbon Dioxide 24 BUN 30 H Creatinine 1.17 H Estimated GFR 44.3 L BUN/Creatinine Ratio 25.6 H Glucose 89 Lactate Calcium 9.0 Total Bilirubin AST ALT Alkaline Phosphatase Total Creatine Kinase 77 CK-MB (CK-2) TNP CK-MB (CK-2) Rel Index TNP Troponin I 0.116 H 0.084 H NT-Pro-B Natriuret Pep 32157 H Total Protein Albumin Globulin Albumin/Globulin Ratio SARS-CoV-2 (PCR) 08/17/21 05:46 WBC RBC Hgb Hct MCV MCH MCHC RDW Plt Count Neut % (Auto) Lymph % (Auto) [place] % (Auto) Eos % (Auto) Baso % (Auto) Neut # (Auto) Lymph # (Auto) [place] # (Auto) Eos # (Auto) Baso # (Auto) Sodium Potassium Chloride Carbon Dioxide BUN Creatinine Estimated GFR BUN/Creatinine Ratio Glucose Lactate Calcium Total Bilirubin AST ALT Alkaline Phosphatase Total Creatine Kinase CK-MB (CK-2) CK-MB (CK-2) Rel Index Troponin I NT-Pro-B Natriuret Pep 6560 H Total Protein Albumin Globulin Albumin/Globulin Ratio SARS-CoV-2 (PCR) [facility] Medical History Atrial fibrillation (09/20/10) Bilateral shoulder pain Bipolar disorder Bradycardia Cardiomyopathy Chronic diarrhea (06/10/16) Cognitive decline Controlled type 2 diabetes mellitus (09/20/10) Essential hypertension (09/20/10) Fatigue Head contusion History of Graves' disease History of placenta previa Irritable bowel syndrome Minor head injury without loss of consciousness Neuropathy of both feet Renal artery stenosis (09/20/10) Retinal scar Rheumatoid arthritis Right leg pain Sprain of left shoulder Stye Systolic congestive heart failure (09/20/10) Thyroid nodule Vision disorder Weakness Surgical History Anesthesia History of hip replacement History of knee replacement History of partial surgical removal of colon (06/10/16) Status post dilation and curettage Social History details: She is living with her in a trailer. She is a [employer] household members: spouse Smoking Status: Former smoker alcohol intake: former Discharge Assessment & Plan Assessment and Plan Assessment: 80-year-old female admitted as observation patient for overnight diuresis with IV Lasix for acute on chronic systolic heart failure Plan: Patient will be discharged home in [facility], Increase Lasix to 40 mg in the morning and 40 mg at noon. Continue [place]asta nolactone 25 mg daily Electrolytes are good. She was given oral potassium yesterday She will follow-up with Dr. Castro this week. Discussed the importance of following up with him to reassess her fluid status and her electrolytes. Due to increasing the dose of furosemide and previous acute kidney injury I will not start lisinopril metoprolol but hopefully the lisinopril can be started next week. We discussed the benefits of this medication how it helps with heart failure. Also I recommend she follow-up with her adjunct mathematics instructor. Assessment 2. Hypertension well controlled Plan: Continue to monitor Assessment 3. Insulin-dependent diabetes Plan: Continue with outpatient regimen Assessment number for cognitive dysfunction on Namenda Plan: May benefit from optimizing medications considering an antipsychotic as well for agitation and irritability as well as some delusions. At this point kendrick decker is stable and at her baseline per . She will follow-up with Dr. Castro Assessment 5. Diagnosis of bipolar versus depression currently on escitalopram Plan: Will continue same outpatient medication Discharge Plan Discharge Plan Patient Disposition: Home Discharge orders & Medications Prescriptions: Continued spironolactone 25 mg tablet 25 mg PO DAILY Qty: 90 3RF (DME) DISABLED PARKING PERMIT See Rx Instructions .ROUTE .MEDSUPPLY Qty: 1 0RF Rx Instructions: I find this patient to be medically disabled and qualified for disabled parking as indicated, and signed, on the accompanying Disabled Parking Application for Individuals. insulin syringe-needle U-100 [BD Insulin Syringe Ultra-Fine] 1 mL 30 gauge x 1/2 syringe See Rx Instructions .ROUTE .COMPLEX Qty: 100 3RF Dose Instruction: use as directed for daily insulin injections Rx Instructions: use as directed for daily insulin injections escitalopram oxalate 10 mg tablet 10 mg PO .HS Qty: 90 3RF Lantus U-100 Insulin 100 unit/mL solution 40 unit SUBCUT DAILY Qty: 10 11RF memantine [Namenda] 5 mg tablet 5 mg PO .HS Qty: 90 0RF acetaminophen 325 mg Tablet 650 mg PO Q6HR PRN (Reason: Fever/Mild Pain (1-3)) Qty: 30 0RF levothyroxine 100 mcg tablet 100 mcg PO DAILY 0RF Label Comments: TAKE ONE TABLET BY MOUTH ONE TIME DAILY Changed furosemide 40 mg tablet 40 mg PO BID Qty: 0 0RF Label Comments: TAKE ONE TABLET BY MOUTH TWICE DAILY Follow up/Referrals: Live Castro MD [Primary Care Provider] - Diet/Activity/Treatments Diet: Low-sodium Discharge Data Primary Care Provider: Live Castro Quality VTE Deep Vein Thrombosis/Pulmonary Embolism Present on Admission: No
--- NOTE | 2021-08-17 12:54 | CM.IDA ---
Initial DCP Assessment Note Pt is an 80 yo female, resident of [place], arrives w/difficulty breathing for a few days; admitted observation for IV diuresis and feeling much better according to provider Dr Pineda. Patient has known CHF w/preserved ef of 40-45% PMH Includes: 1. Atrial fibrillation now with pacemaker 2. Bipolar disorder 3. Cognitive dysfunction on Namenda 4. Congestive heart failure with recent echo showing ejection fraction 40-45% 5. Type 2 diabetes, insulin-dependent 6. HTN 7. IBS PCP: Live Castro Payer: [employer] Reviewed chart, patient w/recent DC from to [facility] lives at home in mobile home w/spouse who is patient's primary cg. Dtr Rina lives nearby. Patient very eager to return home and DC Summary completed and signed by Eric Pineda Plan: DC home w/family today, patient eager to return home. Functionally back to baseline. No needs expected from DC planning team JEMAL Wolfe
--- NOTE | 2021-08-17 13:25 | PC.NURSE ---
Pt discharged home by provider. Pt verbalized understanding of discharge instructions. IV removed, tele removed. Pt escorted out with personal w/c to private vehicle. Pt left in stable condition with all personal belongings.
== END 2021-08-17 13:27 | disposition home or self-care (01) ==
LOC: ED 14:24 → AC 19:51
PROVIDERS: Admitting Provider Family Medicine; Emergency Provider Emergency Medicine; PCP Family Medicine; Referring Provider Emergency Medicine; Visit Provider Family Medicine
DX: I11.0 Hypertensive heart disease with heart failure (principal); I50.23 Acute on chronic systolic (congestive) heart failure; E11.9 Type 2 diabetes mellitus without complications; I42.9 Cardiomyopathy, unspecified; I48.91 Unspecified atrial fibrillation; Z79.4 Long term (current) use of insulin; Z95.0 Presence of cardiac pacemaker; K58.9 Irritable bowel syndrome, unspecified; Z20.822 Contact with and (suspected) exposure to COVID-19
CPT/HCPCS: 36415; 71046; 80048; 80053; 82550; 82553; 82962; 83605; 83880; 84484; 85025; 87635; 93005; 96374; 96376; 99284; 99291; C9803; G0378; J1815; J1940

== ENCOUNTER → 2021-08-26 14:03 | Outpatient (CLI) | payer MEDICARE, SELFPAY ==
[2021-03-11 12:45] VITALS: PULSE 81; RESP 22; O2SAT 98
[2021-08-16 20:32] VITALS: BMI 28.3
[2021-08-26 16:53] LABS: BUN Creatinine Ratio 26.4 (6-22); Blood Urea Nitrogen 32 mg/dL (7-17); Carbon Dioxide 23 mmol/L (22-32); Chloride 107 mmol/L (98-107); Estimated Glomerular Filt Rate 42.6 mL/min (>60); Glucose 146 mg/dL (80-110); HEMOLYSIS < 15 (0-50); Potassium 3.7 mmol/L (3.4-5.1); Sodium 139 mmol/L (137-145)
[2021-08-26 17:02] LABS: NT-proBNP (BNP-Adult 18+) 7810 pg/mL (<450)
== END ==
PROVIDERS: PCP Family Medicine; Referring Provider Family Medicine; Visit Provider Family Medicine
DX: N17.9 Acute kidney failure, unspecified (principal); I50.20 Unspecified systolic (congestive) heart failure
CPT/HCPCS: 36415; 80048; 83880

== ENCOUNTER → 2021-09-03 13:03 | Outpatient (CLI) | payer MEDICARE, SELFPAY ==
[2021-03-11 12:45] VITALS: PULSE 81; RESP 22; O2SAT 98
[2021-08-16 20:32] VITALS: BMI 28.3
[2021-09-03 13:27] LABS: Appearance Urine UA CLEAR; Bilirubin Urine UA NEGATIVE (NEGATIVE); Color Urine UA YELLOW; Glucose Urine UA NEGATIVE (Negative); Ketones Urine UA NEGATIVE (NEGATIVE); Leukocyte Esterase Urine UA TRACE (NEGATIVE); Nitrite Urine UA NEGATIVE (Negative); Occult Blood Urine UA NEGATIVE (Negative); Protein Urine UA NEGATIVE (Negative); Specific Gravity Urine UA 1.015 (1.000-1.035); Urobilinogen Urine UA 0.2 E.U./dL (0.2)
[2021-09-03 13:39] LABS: Bacteria Urine None Seen; Culture Indicated Urine Cult Not Indicated; RBC Urine None Seen (0-5/HPF); Squamous Epithelial Cell Urine 5-10 /HPF (0-5/HPF); WBC Urine 1-5/HPF (0-5/HPF)
== END ==
PROVIDERS: PCP Family Medicine; Referring Provider Family Medicine; Visit Provider Family Medicine
DX: R30.0 Dysuria (principal)
CPT/HCPCS: 81003; 81015

== ENCOUNTER 2021-09-03 17:37 | Emergency (ER) | payer MEDICARE, SELFPAY ==
[2021-03-11 12:45] VITALS: PULSE 81; RESP 22; O2SAT 98
[2021-08-16 20:32] VITALS: BMI 28.3
--- NOTE | 2021-09-03 17:45 | DI.RAD.S_ITS ---
PROCEDURE: XR TOE LT MIN 2V INDICATIONS: pain, 5th digit pain TECHNIQUE: 3 views of the 5th toe(s) acquired. COMPARISON: CR, XR FOOT LT MIN 3V, 05/30/2019, 9:10. FINDINGS: Bones: No fractures or dislocations. No suspicious bony lesions. Distal 1st digit proximal phalangeal tibial aspect erosion is more prominent compared to 2020. Soft tissues: No suspicious soft tissue densities. 5th digit bunionette. IMPRESSION: No acute abnormality is identified at the 5th digit. 1st digit proximal phalangeal osseous erosion is more prominent. This could be seen in the setting of gout or osteomyelitis. Dictated by: Josef Willis M.D. on 09/03/2021 at 18:52 Approved by: Josef Willis M.D. on 09/03/2021 at 18:55
--- NOTE | 2021-09-03 19:42 | ED.LOWEXIN ---
HPI - Extremity Injury (Lower) <Jayleen Tsang, [facility] - Last Filed: 09/03/21 19:52> General Chief Complaint: Extremity Injury, Lower Stated Complaint: LEFT FOOT BROKEN TOE THIS MORNING Time Seen by Provider: 09/03/21 19:12 Source: patient Mode of arrival: Wheelchair History of Present Illness HPI Narrative: This is an 80-year-old female with history of dementia, diabetes, AFib, congestive heart failure with a pacemaker, CKD, and neuropathy of bilateral feet who presents to the emergency department today for and new onset 5th toe pain on her left foot. Patient states that it is very painful to touch, she denies any known trauma but does not remember if there was trauma. She came to the emergency department thinking it was broken and wanted an x-ray today. She is able to move her toe, however there is a moderate bunion associated with her 5th metatarsal and included where her 5th toe pain is. She denies any other toe pain, foot pain, or ankle pain. She denies any new sensation changes other than pain. She denies any open wound. Related Data Home Medications Medication Instructions Recorded Confirmed levothyroxine 100 mcg tablet 100 mcg PO DAILY 07/16/21 08/29/21 Previous Rx's Medication Instructions Recorded acetaminophen 325 mg tablet 650 mg PO Q6HR PRN #30 tab 05/31/19 insulin syringe-needle U-100 1 mL See Rx Instructions .ROUTE 09/10/20 30 gauge x 1/2 (BD Insulin .COMPLEX #100 ea Syringe Ultra-Fine) escitalopram oxalate 10 mg tablet 10 mg PO .HS #90 tab 11/06/20 insulin glargine 100 unit/mL 40 unit (0.4 mL) SUBCUT DAILY #10 11/19/20 subcutaneous solution (Lantus ml U-100 Insulin) DISABLED PARKING PERMIT #1 ea 03/11/21 memantine 5 mg tablet (Namenda) 5 mg PO .HS #90 tab 06/24/21 spironolactone 25 mg tablet 25 mg PO DAILY #90 tab 08/15/21 furosemide 40 mg tablet 40 mg PO BID #0 tab 08/17/21 lisinopril 20 mg tablet 20 mg PO DAILY #90 tab 08/29/21 trazodone 50 mg tablet 50 mg PO BEDTIME #30 tab 08/29/21 diclofenac sodium 1 % topical gel 2 g TOPICAL QID PRN #100 g 09/03/21 (Voltaren Arthritis Pain) lidocaine 4 % topical cream 1 applic TOPICAL BID PRN #15 g 09/03/21 Allergies Allergy/AdvReac Type Severity Reaction Status Date / Time egg Allergy Severe weakness Verified 08/29/21 11:50 on the right side of body after vaccine Anesthetics - Amide Type - Allergy Unknown Verified 08/29/21 11:50 Select A [ANESTHETICS - AMIDE TYPE] codeine [CODEINE] Allergy Unknown Verified 08/29/21 11:50 lidocaine [From XYLOCAINE] Allergy Unknown WHEN HAD Verified 08/29/21 11:50 TEETH WORKED ON lisinopril [LISINOPRIL] Allergy Unknown Verified 08/29/21 11:50 morphine [MORPHINE] Allergy Unknown Verified 08/29/21 11:50 oxycodone [OXYCODONE] Allergy Unknown Verified 08/29/21 11:50 Penicillins [PENICILLINS] Allergy Unknown Verified 08/29/21 11:50 influenza virus vaccine, Allergy weakness Verified 08/29/21 11:50 specific on the right side of body after vaccine Review of Systems <CARLY Kumar - Last Filed: 09/03/21 19:52> Review of Systems Narrative: General: denies fever, chills, malaise, sweats, fatigue Head/Neck: denies headache, neck pain, dizziness Eyes: denies visual changes, eye pain Cardio: denies chest pain, palpitations, edema Respiratory: denies dyspnea, cough, orthopnea GI: denies abdominal pain, nausea, vomiting, or diarrhea : denies dysuria, hematuria, urinary retention, frequency or incontinence MSK: denies joint pain, muscle weakness, endorses left 5th toe pain Skin: denies rash, itching, skin lesions or other Neuro: denies numbness, tingling Patient History <CARLY Kumar - Last Filed: 09/03/21 19:52> Medical History Atrial fibrillation (09/20/10) Bilateral shoulder pain Bipolar disorder Bradycardia Cardiomyopathy Chronic diarrhea (06/10/16) Cognitive decline Controlled type 2 diabetes mellitus (09/20/10) Essential hypertension (09/20/10) Fatigue Head contusion History of Graves' disease History of placenta previa Irritable bowel syndrome Minor head injury without loss of consciousness Neuropathy of both feet Renal artery stenosis (09/20/10) Retinal scar Rheumatoid arthritis Right leg pain Sprain of left shoulder Stye Systolic congestive heart failure (09/20/10) Thyroid nodule Vision disorder Weakness Surgical History Anesthesia History of hip replacement History of knee replacement History of partial surgical removal of colon (06/10/16) Status post dilation and curettage Social History details: She is living with her in a trailer. She is a [employer] household members: spouse Smoking Status: Former smoker alcohol intake: former Smoking Status: Former smoker alcohol intake frequency: 0-2 drinks per day Substance Use Type: does not use Exam <CARLY Kumar - Last Filed: 09/03/21 19:52> Narrative Exam Narrative: Independently reviewed vitals signs and nursing notes. General: cooperative, comfortable, in no acute distress, well developed and well groomed Head: atraumatic, symmetrical facial expressions Neck: supple, atraumatic, without lymphadenopathy. Eyes: pupils equal round and reactive, EOMI, conjunctiva normal Nose: nares patent, no rhinorrhea Cardiovascular: Irregular rate and rhythm, no peripheral edema, warm extremities Respiratory: normal effort, able to speak in complete sentences, no audible wheezing, stridor, or rales. No retractions or tachypnea. MSK: moves all extremities, ambulatory w/steady gait, neurovascularly intact with baseline deficits, left 5th metatarsal with a bunionette associated with the 5th toe, tender to palpation the bunion to the distal tip of her 5th toe, neurovascularly intact, no open wound, significant erythema, streaking, signs of infection. No ecchymosis or signs of trauma. Patient able to flex and extend her toe with pain, cap refill less than 2 seconds Skin: brisk capillary refill, no rash, no erythema Neuro: normal speech and cognition, A&O x3, normal tone Psych: mental status is grossly normal, congruent mood, normal affect, pleasant and cooperative Course <CARLY Kumar - Last Filed: 09/03/21 19:52> Orders Ordered: Discontinued Medications Acetaminophen (Acetaminophen 325 Mg Tablet) 650 mg PO NOW ONE Stop: 09/03/21 19:29 Last Admin: 09/03/21 19:48 Dose: 650 mg Documented by: BRIANNE Diclofenac Sodium (Diclofenac 1% Gel 100 Gm) 1 applic TOP NOW ONE Stop: 09/03/21 19:29 Last Admin: 09/03/21 19:49 Dose: Not Given Documented by: BRIANNE Lidocaine/Prilocaine (Lidocaine/Prilocaine 5 Gm) 5 gm TOP NOW ONE Stop: 09/03/21 19:29 Last Admin: 09/03/21 19:48 Dose: 5 gm Documented by: BRIANNE <Agustin Pompa DO - Last Filed: 09/04/21 10:37> Orders Ordered: Discontinued Medications Acetaminophen (Acetaminophen 325 Mg Tablet) 650 mg PO NOW ONE Stop: 09/03/21 19:29 Last Admin: 09/03/21 19:48 Dose: 650 mg Documented by: BRIANNE Diclofenac Sodium (Diclofenac 1% Gel 100 Gm) 1 applic TOP NOW ONE Stop: 09/03/21 19:29 Last Admin: 09/03/21 19:49 Dose: Not Given Documented by: BRIANNE Lidocaine/Prilocaine (Lidocaine/Prilocaine 5 Gm) 5 gm TOP NOW ONE Stop: 09/03/21 19:29 Last Admin: 09/03/21 19:48 Dose: 5 gm Documented by: BRIANNE MDM - Extremity Injury (Lower) <Jayleen Tsang [facility] - Last Filed: 09/03/21 19:52> Imaging Data Extremity x-ray #1: Radiologist's Impression: PROCEDURE:? XR TOE LT MIN 2V ? INDICATIONS:? pain, 5th digit pain ? TECHNIQUE:? 3 views of the 5th toe(s) acquired.? ? COMPARISON:? CR, XR FOOT LT MIN 3V, 05/30/2019, 9:10. ? FINDINGS:? ? Bones:? No fractures or dislocations.? No suspicious bony lesions.? Distal 1st digit proximal phalangeal tibial aspect erosion is more prominent compared to 2019. ? Soft tissues:? No suspicious soft tissue densities.? 5th digit bunionette.? ? IMPRESSION:? No acute abnormality is identified at the 5th digit. ? 1st digit proximal phalangeal osseous erosion is more prominent.? This could be seen in the setting of gout or osteomyelitis. ? ? Dictated by: Josef Willis M.D. on 09/03/2021 at 18:52 ? ? Approved by: Josef Willis M.D. on 09/03/2021 at 18:55 ? MDM Narrative Medical decision making narrative: This is an 80-year-old female with history significant for dementia, diabetes, AFib, congestive heart failure with a pacemaker, CKD, and neuropathy of bilateral feet who presents to the emergency department today for and new onset 5th toe pain on her left foot. X-ray today of her foot shows no acute abnormality identified in the 5th digit, there is a 5th digit bunionette, 1st digit proximal phalangeal osseous erosion is more prominent, patient does not this area however today. I suspect the patient's bunionette is due continuous pressure from her shoe she is wearing on that bunion. Patient was fitted in a postop shoe today, given a prescription of Voltaren gel, given Tylenol, topical lidocaine on the emergency department since we do not have any Voltaren gel. Patient was given a referral to Ailyn Faria, business services vice president for follow-up and evaluation her bunion. No suspected infection at this time, there is no surrounding erythema or streaking, no edema. Recommend close monitoring for the next couple of days to is for infection. Patient and her understand these directions, and will follow-up with Dr. Castro at their next appointment. Patient is appropriate and amenable to discharge home. Vital signs are stable on repeat examination is unremarkable. Patient has been informed of results. Patient has been given strict return to ER precautions for any new or worsening symptoms. Patient understands to follow up closely with outpatient providers as instructed. Patient understands plan and agrees to discharge home. All questions and concerns answered at this time. Discharge Plan Departure Patient Disposition: Home Clinical Impression: Bunionette of left foot Instructions: Bunion Activity Restrictions/Additional Instructions: *You have been diagnosed with bunion pain of your left foot. Please apply Voltaren gel 2 to 3 times a day to this area as needed. You may also apply the lidocaine cream if it is helpful for your pain. Please take Tylenol every 6 hours as needed, and call and make an appointment with Dr. Faria with Podiatry tomorrow. It may take a few days to get in with her. She has an office in [place]. I hope you start feeling better soon, if your pain is not under control, please follow-up with Dr. Castro. Please wear the postop shoe while walking around, see if it helps improve your pain in that toe over a couple of days. *What to do: *Please continue to take your regular medications as directed. [x ] New medication prescriptions sent to your pharmacy: [[facility] ] [ ] New medication written as a paper prescription [ ] No new medications given *Please follow up with your primary care provider in 2-3 days, call for an appointment. Let them know you were seen in the Emergency Department and that we asked that you be seen for follow-up. We will electronically transmit a record of today's note if your PCP is in our system *If you do not have a primary care provider please contact [phone] to establish care with one of the [facility] primary care providers. *Return to Emergency Department if you should have any new, worsening or concerning symptoms, such as [fever greater than 101F, chills, worsening pain, persistent vomiting or other bothersome symptoms] Prescriptions: New diclofenac sodium [Voltaren Arthritis Pain] 1 % gel 2 g topical QID PRN (Reason: foot pain) Qty: 100 0RF Rx Instructions: apply to single elbow, wrist or hand; for hand includes palm/fingers/back of hand lidocaine 4 % cream 1 applic topical BID PRN (Reason: pain) Qty: 15 0RF No Action spironolactone 25 mg tablet 25 mg PO DAILY Qty: 90 3RF trazodone 50 mg tablet 50 mg PO BEDTIME Qty: 30 1RF lisinopril 20 mg tablet 20 mg PO DAILY Qty: 90 3RF (DME) DISABLED PARKING PERMIT See Rx Instructions .ROUTE .MEDSUPPLY Qty: 1 0RF Rx Instructions: I find this patient to be medically disabled and qualified for disabled parking as indicated, and signed, on the accompanying Disabled Parking Application for Individuals. insulin syringe-needle U-100 [BD Insulin Syringe Ultra-Fine] 1 mL 30 gauge x 1/2 syringe See Rx Instructions .ROUTE .COMPLEX Qty: 100 3RF Dose Instruction: use as directed for daily insulin injections Rx Instructions: use as directed for daily insulin injections escitalopram oxalate 10 mg tablet 10 mg PO .HS Qty: 90 3RF Lantus U-100 Insulin 100 unit/mL solution 40 unit SUBCUT DAILY Qty: 10 11RF memantine [Namenda] 5 mg tablet 5 mg PO .HS Qty: 90 0RF acetaminophen 325 mg Tablet 650 mg PO Q6HR PRN (Reason: Fever/Mild Pain (1-3)) Qty: 30 0RF furosemide 40 mg tablet 40 mg PO BID Qty: 0 0RF Label Comments: TAKE ONE TABLET BY MOUTH TWICE DAILY levothyroxine 100 mcg tablet 100 mcg PO DAILY 0RF Label Comments: TAKE ONE TABLET BY MOUTH ONE TIME DAILY Referrals: Ailyn Faria DPM [Physician] - Live Castro MD [Primary Care Provider] - <Agustin Pompa DO - Last Filed: 09/04/21 10:37> Cosign ED Attending Cosignature Attestation: I was immediately available in the department for consultation. This documentation has been reviewed and I agree with assessment and plan. Supervised by Agustin Pompa DO
[2021-09-03] MEDS: LIDOCAINE/PRILOCAINE 5 GM TOP (19:48)
[2021-09-03] MEDS: ACETAMINOPHEN 325 MG TABLET 650 MG PO (19:48)
== END 2021-09-03 20:05 | disposition home or self-care (01) ==
PROVIDERS: Emergency Provider Nurse Practitioner Critical Care Medicine; PCP Family Medicine
DX: M21.622 Bunionette of left foot (principal); R30.0 Dysuria
CPT/HCPCS: 73660; 81003; 81015; 99283

== ENCOUNTER 2021-10-17 13:29 | Inpatient (IN) | payer MEDICARE, SELFPAY ==
[2021-03-11 12:45] VITALS: PULSE 81; RESP 22; O2SAT 98
[2021-08-16 20:32] VITALS: BMI 28.3
[2021-10-17] VITALS (14 sets, daily range): BP systolic 88–104; BP diastolic 40–74; PULSE 123–126; RESP 18–31; TEMP 36.9–37.1; O2SAT 94–97; BMI 26.2
--- NOTE | 2021-10-17 14:03 | ED_ITS ---
HPI - Abdominal Pain General Chief Complaint: Abdominal Pain Stated Complaint: Abd pain for weeks Time Seen by Provider: 10/17/21 14:03 Source: patient Mode of arrival: Family Vehicle Limitations: no limitations History of Present Illness HPI narrative: This is a 81-year-old female comes emergency department with complaint of dementia, diabetes, AFib, CHF with pacemaker, CKD and neuropathy bilateral feet. Patient does not wish to give me much history. She is frustrated with her care. Her states that she can get quite frustrated and has dementia that can be very severe at times per and daughter. States that she had a fall about a month ago she had back pain but has been ambulating without issue he notes that she started having abdominal pain which is new over the last several days. She did have some diarrhea, she has not had any black or bloody stools. No nausea or vomiting. No fevers. No chest pain or shortness of breath that has been shared. Patient has any new vaginal bleeding or discharge. She lives independently with her . Her daughter helps make medical decisions. Related Data Home Medications Medication Instructions Recorded Confirmed levothyroxine 100 mcg tablet 100 mcg PO DAILY 07/16/21 10/17/21 loperamide 2 mg capsule 1 mg PO PRN PRN MDD 16MG/24HR 10/17/21 10/17/21 Previous Rx's Medication Instructions Recorded acetaminophen 325 mg tablet 650 mg PO Q6HR PRN #30 tab 05/31/19 insulin syringe-needle U-100 1 mL See Rx Instructions .ROUTE 09/10/20 30 gauge x 1/2 (BD Insulin .COMPLEX #100 ea Syringe Ultra-Fine) escitalopram oxalate 10 mg tablet 10 mg PO .HS #90 tab 11/06/20 insulin glargine 100 unit/mL 40 unit (0.4 mL) SUBCUT DAILY #10 11/19/20 subcutaneous solution (Lantus ml U-100 Insulin) DISABLED PARKING PERMIT #1 ea 03/11/21 spironolactone 25 mg tablet 25 mg PO DAILY #90 tab 08/15/21 furosemide 40 mg tablet 40 mg PO BID #0 tab 08/17/21 lisinopril 20 mg tablet 20 mg PO DAILY #90 tab 08/29/21 diclofenac sodium 1 % topical gel 2 g TOPICAL QID PRN #100 g 09/03/21 (Voltaren Arthritis Pain) lidocaine 4 % topical cream 1 applic TOPICAL BID PRN #15 g 09/03/21 memantine 5 mg tablet See Rx Instructions .ROUTE 10/07/21 .COMPLEX #90 tab trazodone 50 mg tablet See Rx Instructions .ROUTE 10/07/21 .COMPLEX #90 tab Allergies Allergy/AdvReac Type Severity Reaction Status Date / Time egg Allergy Severe weakness Verified 10/17/21 13:53 on the right side of body after vaccine Anesthetics - Amide Type - Allergy Unknown Verified 10/17/21 13:53 Select A [ANESTHETICS - AMIDE TYPE] codeine [CODEINE] Allergy Unknown Verified 10/17/21 13:53 lidocaine [From XYLOCAINE] Allergy Unknown WHEN HAD Verified 10/17/21 13:53 TEETH WORKED ON lisinopril [LISINOPRIL] Allergy Unknown Verified 10/17/21 13:53 morphine [MORPHINE] Allergy Unknown Verified 10/17/21 13:53 oxycodone [OXYCODONE] Allergy Unknown Verified 10/17/21 13:53 Penicillins [PENICILLINS] Allergy Unknown Verified 10/17/21 13:53 influenza virus vaccine, Allergy weakness Verified 10/17/21 13:53 specific on the right side of body after vaccine Review of Systems Review of Systems ROS Unobtainable: All systems reviewed & are unremarkable except as noted in HPI and below Patient History Medical History Atrial fibrillation (09/20/10) Bilateral shoulder pain Bipolar disorder Bradycardia Cardiomyopathy Chronic diarrhea (06/10/16) Cognitive decline Controlled type 2 diabetes mellitus (09/20/10) Essential hypertension (09/20/10) Fatigue Head contusion History of Graves' disease History of placenta previa Irritable bowel syndrome Minor head injury without loss of consciousness Neuropathy of both feet Renal artery stenosis (09/20/10) Retinal scar Rheumatoid arthritis Right leg pain Sprain of left shoulder Stye Systolic congestive heart failure (09/20/10) Thyroid nodule Vision disorder Weakness Surgical History Anesthesia History of hip replacement History of knee replacement History of partial surgical removal of colon (06/10/16) Status post dilation and curettage Social History details: She is living with her in a trailer. She is a [employer] household members: spouse Smoking Status: Former smoker alcohol intake: former Smoking Status: Former smoker alcohol intake frequency: 0-2 drinks per day Substance Use Type: does not use Exam Narrative Exam Narrative: GENERAL: Alert and oriented to self and location, patient is in mild distress. Patient is cooperative at times but states she does wish to review her case with myself. HEENT: Head normocephalic, atraumatic, EOMI, pupils reactive, face symmetric, moist mucous membranes NECK: Supple, full range of motion CARDIOVASCULAR: Regular rate and rhythm without murmurs, rubs or gallops. RESPIRATORY: Breath sounds equal bilaterally, no wheezes rales or rhonchi. ABDOMEN: Soft, nontender. Normoactive bowel sounds all 4 quadrants. No guarding or rebound, rigidity, no mass : No CVA tenderness BACK: No cervical, thoracic or lumbar vertebral point tenderness. Patient does have tenderness in the left lower lumbar region. Patient has decreased range of motion. Patient's gait is [antalgic/normal]. Rectal exam is deferred. Patient is able to lift legs but does have difficulty boosting or moving herself in the bed. She is not cooperative with exam for muscle strength testing or DTRs. And refuses to allow me to touch her legs. EXTREMITIES: No clubbing or edema. Neurovascularly intact NEUROLOGICAL: Cranial nerves II through XII grossly intact. Moving all extremities SKIN: Warm, dry, no petechiae, no rashes or lesions. Initial Vital Signs Initial Vital Signs: Vital Signs Temperature 98.8 F 10/17/21 13:30 Pulse Rate 124 H 10/17/21 13:30 Respiratory Rate 20 10/17/21 13:30 Blood Pressure 104/61 10/17/21 13:30 Pulse Oximetry 95 10/17/21 13:30 Course Orders Ordered: Acetaminophen (Acetaminophen 325 Mg Tablet) 650 mg PO Q6HR PRN PRN Reason: Fever/Mild Pain (1-3) Last Admin: 10/18/21 20:20 Dose: 650 mg Documented by: Admin: 10/18/21 08:49 Dose: 650 mg Documented by: Admin: 10/18/21 00:46 Dose: 650 mg Documented by: ARTUR Dextrose (Dextrose 50 % In Water 25 Gm/50 Ml Syringe) 25 gm IV PRN PRN PRN Reason: Hypoglycemia Enoxaparin Sodium (Enoxaparin 30 Mg/0.3 Ml Syringe) 30 mg SUBCUT DAILY [facility] Last Admin: 10/18/21 08:50 Dose: 30 mg Documented by: CECILE Escitalopram Oxalate (Escitalopram 10 Mg Tablet) 10 mg PO BEDTIME [facility] Last Admin: 10/18/21 20:21 Dose: 10 mg Documented by: Admin: 10/17/21 23:00 Dose: 10 mg Documented by: ARTUR Amiodarone HCl/Dextrose (Nexterone) 360 mg in 200 mls @ 16.7 mls/hr IV CONT [facility]; Protocol Stop: 10/19/21 10:59 Last Titration: 10/19/21 00:03 Dose: 0 mls/hr, 0 mls/hr Documented by: Admin: 10/18/21 23:10 Dose: 16.7 mls/hr, 16.7 mls/hr Documented by: LADONNA Insulin Glargine (Insulin Glargine 100 Unit/Ml 3ml Pen) 40 unit SUBCUT DAILY [facility] Last Admin: 10/18/21 08:27 Dose: Not Given Documented by: CECILE Insulin Human Lispro (Insulin Lispro 100 Unit/Ml 3ml Vial) 0 unit SUBCUT ACHS [facility]; Protocol Last Admin: 10/18/21 21:10 Dose: Not Given Documented by: Admin: 10/18/21 17:45 Dose: Not Given Documented by: Admin: 10/18/21 12:42 Dose: Not Given Documented by: Admin: 10/18/21 08:26 Dose: Not Given Documented by: Admin: 10/17/21 21:21 Dose: Not Given Documented by: ARTUR Levothyroxine Sodium (Levothyroxine 100 Mcg Tablet) 100 mcg PO DAILY [facility] Last Admin: 10/18/21 08:50 Dose: 100 mcg Documented by: CECILE Loperamide HCl (Loperamide 2 Mg Capsule) 2 mg PO PRN PRN PRN Reason: Diarrhea Melatonin (Melatonin 3 Mg Tablet) 6 mg PO BEDTIME [facility] Last Admin: 10/18/21 21:07 Dose: 6 mg Documented by: LADONNA Naloxone HCl (Naloxone 0.4 Mg/Ml Vial) 0.2 mg IV Q2MIN PRN PRN Reason: Opiate Reversal Trazodone HCl (Trazodone 50 Mg Tablet) 50 mg PO BEDTIME [facility] Last Admin: 10/18/21 20:20 Dose: 50 mg Documented by: Admin: 10/17/21 23:00 Dose: 50 mg Documented by: ARTUR Discontinued Medications Acetaminophen (Acetaminophen 325 Mg Tablet) 975 mg PO NOW ONE Stop: 10/17/21 15:01 Last Admin: 10/17/21 15:36 Dose: 975 mg Documented by: MICHELET Digoxin (Digoxin 500 Mcg/2 Ml Ampul) 125 mcg IV NOW ONE Stop: 10/18/21 11:58 Last Admin: 10/18/21 12:15 Dose: 125 mcg Documented by: GARETH Digoxin (Digoxin 500 Mcg/2 Ml Ampul) 125 mcg IV NOW ONE Stop: 10/19/21 09:21 Furosemide (Furosemide 40 Mg/4 Ml Vial) 40 mg IV Q12HR STA Stop: 10/18/21 11:46 Last Admin: 10/18/21 12:15 Dose: 40 mg Documented by: GARETH Sodium Chloride (Normal Saline 0.9%) 1,000 mls @ 1,000 mls/hr IV BOLUS ONE Stop: 10/17/21 15:23 Last Admin: 10/17/21 14:53 Dose: Not Given Documented by: MICHELET Lactated Ringer's (Lactated Ringers) 2,013.96 mls @ 671.32 mls/hr 30 ml/kg infuse over 3 hr (2013.96 ml) IV NOW ONE Stop: 10/17/21 17:46 Last Infusion: 10/17/21 18:21 Dose: 0 mls/hr Documented by: Admin: 10/17/21 15:00 Dose: 671.32 mls/hr Documented by: MICHELET Sodium Chloride (Normal Saline 0.9%) 1,000 mls @ 60 mls/hr IV CONT [facility] Last Admin: 10/17/21 21:06 Dose: 60 mls/hr Documented by: ARTUR Lactated Ringer's (Lactated Ringers) 1,000 mls @ 60 mls/hr IV CONT [facility] Last Admin: 10/17/21 23:01 Dose: Not Given Documented by: ARTUR Amiodarone HCl/Dextrose (Nexterone) 150 mg in 100 mls @ 33 mls/hr IV NOW ONE; Protocol Stop: 10/18/21 16:06 Last Infusion: 10/18/21 14:00 Dose: 200 mls/hr Documented by: Admin: 10/18/21 13:51 Dose: 33 mls/hr Documented by: GARETH Amiodarone HCl/Dextrose (Nexterone) 360 mg in 200 mls @ 33.333 mls/hr IV NOW ONE; Protocol Stop: 10/18/21 21:51 Last Titration: 10/19/21 09:24 Dose: 0 ml/hr, 0 mls/hr Documented by: Admin: 10/18/21 17:06 Dose: 33.3 ml/hr, 33.3 mls/hr Documented by: GARETH Metoprolol Tartrate (Metoprolol Ir 25 Mg Tablet) 12.5 mg PO Q6HR [facility] Last Admin: 10/18/21 06:53 Dose: Not Given Documented by: Admin: 10/18/21 00:07 Dose: Not Given Documented by: Admin: 10/17/21 21:56 Dose: 12.5 mg Documented by: ARTUR Reevaluation(s) Reevaluation #1: Spoke with patient and daughter. Time: 16:59 Consultations Consultation #1: Dr. Gramajo, discussed on patient's EKG not clear atrial flutter but unable to clearly visualize P waves either. Patient has been very persistently tachyc ardic at 1:25 a.m. and quite regular. Troponin is indeterminate but appears stable from priors and through today, no other clear source of infection although she is dehydrated with acute kidney injury and electrolyte changes. Dr. Emy chaudhary recommends full fluid resuscitation and patient still ta chycardic can give 2.5 mg Lopressor IV to slow down the heart rate evaluate the patient's rhythm a little bit more effectively. Time: 16:45 Consultation #2: Dr. Castro, accepts for inpatient admission for acute kidney injury, dehydration, persistent tachycardia which may be atrial flutter, or discussed recommendations from Cardiology. Patient is way through her 2 L is at this time so has not received Lopressor so far. No clear source of infection although was being evaluated for sepsis. Cultures and lactate were obtained. CT imaging shows potential cause for discomfort but no acute pathology intra-abdominally. Time: 16:55 Vital Signs Vital signs: Vital Signs - 8 hr 10/17/21 13:30 10/17/21 13:40 10/17/21 14:00 Temperature 98.8 F Pulse Rate 124 H 124 H 126 H Respiratory Rate 20 24 Blood Pressure 104/61 104/61 94/57 L Pulse Oximetry 95 97 94 10/17/21 14:30 10/17/21 15:00 10/17/21 15:31 Temperature Pulse Rate 126 H 125 H 124 H Respiratory Rate 24 21 28 H Blood Pressure 96/65 94/58 L Pulse Oximetry 10/17/21 16:00 10/17/21 16:30 Temperature Pulse Rate 124 H 124 H Respiratory Rate 26 H 23 Blood Pressure Pulse Oximetry 95 95 MDM - Abdominal Pain Lab Data Result diagrams: 10/17/21 13:59 10/19/21 09:55 Labs: Lab Results 10/17/21 10/17/21 10/17/21 Range/Units 13:59 13:59 13:59 WBC 6.4 (4.5-11.0) X10^3/uL RBC 4.44 (4.0-5.2) X10^6/uL Hgb 12.0 (12.0-16.0) g/dL Hct 36.8 (36-46) % MCV 82.8 (80-100) fL MCH 27.0 (26-34) PG MCHC 32.6 (30-36) % RDW 16.6 H (11.6-14.8) % Plt Count 218 (150-400) X10^3/uL Neut % (Auto) 73.8 (50-75) % Lymph % (Auto) 15.4 L (25-40) % [place] % (Auto) 7.0 (3-14) % Eos % (Auto) 2.9 (2-4) % Baso % (Auto) 0.9 (0-2) % Neut # (Auto) 4800 (9065-8123) /uL Lymph # (Auto) 1000 L (3217-7851) /uL [place] # (Auto) 500 (0-900) /uL Eos # (Auto) 200 (0-450) /uL Baso # (Auto) 100 (0-100) /uL Sodium 135 L (137-145) mmol/L Potassium 5.4 H (3.4-5.1) mmol/L Chloride 109 H (98-107) mmol/L Carbon Dioxide 16 L (22-32) mmol/L BUN 79 H (7-17) mg/dL Creatinine 1.67 H (0.52-1.04) mg/dL Estimated GFR 30 L (>60) mL/min BUN/Creatinine Ratio 47.3 H (6-22) Glucose 172 H (80-110) mg/dL Lactate 1.2 (0.7-2.1) mmol/L Calcium 9.1 (8.4-10.2) mg/dL Total Bilirubin 0.9 (0.2-1.3) mg/dL AST 40 H (14-36) IU/L ALT 27 (<35) IU/L Alkaline Phosphatase 123 (38-126) U/L Total Creatine Kinase (30-135) U/L CK-MB (CK-2) CK-MB (CK-2) Rel Index Troponin I (0.01-0.034) ng/mL NT-Pro-B Natriuret Pep (<450) pg/mL Total Protein 7.2 (6.3-8.2) g/dL Albumin 3.8 (3.5-5.0) g/dL Globulin 3.4 (1.7-4.1) g/dL Albumin/Globulin Ratio 1.1 (1.0-2.8) Lipase 32 (23-300) U/L SARS-CoV-2 (PCR) (Negative) 10/17/21 10/17/21 10/17/21 Range/Units 13:59 15:30 16:00 WBC (4.5-11.0) X10^3/uL RBC (4.0-5.2) X10^6/uL Hgb (12.0-16.0) g/dL Hct (36-46) % MCV (80-100) fL MCH (26-34) PG MCHC (30-36) % RDW (11.6-14.8) % Plt Count (150-400) X10^3/uL Neut % (Auto) (50-75) % Lymph % (Auto) (25-40) % [place] % (Auto) (3-14) % Eos % (Auto) (2-4) % Baso % (Auto) (0-2) % Neut # (Auto) (0272-3332) /uL Lymph # (Auto) (1187-0543) /uL [place] # (Auto) (0-900) /uL Eos # (Auto) (0-450) /uL Baso # (Auto) (0-100) /uL Sodium (137-145) mmol/L Potassium (3.4-5.1) mmol/L Chloride (98-107) mmol/L Carbon Dioxide (22-32) mmol/L BUN (7-17) mg/dL Creatinine (0.52-1.04) mg/dL Estimated GFR (>60) mL/min BUN/Creatinine Ratio (6-22) Glucose (80-110) mg/dL Lactate (0.7-2.1) mmol/L Calcium (8.4-10.2) mg/dL Total Bilirubin (0.2-1.3) mg/dL AST (14-36) IU/L ALT (<35) IU/L Alkaline Phosphatase (38-126) U/L Total Creatine Kinase 66 (30-135) U/L CK-MB (CK-2) TNP CK-MB (CK-2) Rel Index TNP Troponin I 0.043 H 0.044 H (0.01-0.034) ng/mL NT-Pro-B Natriuret Pep 7940 H (<450) pg/mL Total Protein (6.3-8.2) g/dL Albumin (3.5-5.0) g/dL Globulin (1.7-4.1) g/dL Albumin/Globulin Ratio (1.0-2.8) Lipase (23-300) U/L SARS-CoV-2 (PCR) Negative (Negative) Point of care testing: Urine Dip Bedside Urine Glucose Negative Bedside Urine Bilirubin - Negative Bedside Urine Ketone - Negative Urine Specific [place] 1.015 Bedside Urine Occult Blood - Negative Bedside Urine pH 5.5 Bedside Urine Protein - Negative Bedside Urine Urobilinogen - Negative Bedside Urine Nitrite - Negative Bedside Urine Leukocytes - Negative Esterase Imaging Data CT scan - abdomen/pelvis: Radiologist's Impression: Batsheva Burgess?(Tia)??81??F??1940 ? Allergy/Adv: egg, Anesthetics - Amide Type - Select A, codeine, lidocaine, lisinopril, morphine, oxycodone, Penicillins, influenza virus vaccine, specific (More??) Close Abdomen/Pelvis CT (Signed) Clarke Oliver - 10/17/21 Toe X-Ray (Signed) Call,Josef - 09/03/21 Telemetry Strips 08/16/21 Chest X-Ray (Signed) Call,Josef - 08/16/21 Chest X-Ray (Cancelled) 08/16/21 Chest/Abdomen X-ray (Signed) GiaVanessa - 08/08/21 Echocardiogram Ultrasound (Signed) Naila Dickey - 07/16/21 Telemetry Strips 07/15/21 Telemetry Strips 07/15/21 Abdomen/Pelvis CT (Signed) KamaljitRayshawn - 07/15/21 Telemetry Strips 10/07/20 Pelvis X-Ray (Signed) Kevan Tomlin - 08/09/20 Lumbar Spine X-Ray (Signed) Kevan Tomlin - 08/09/20 Carotid Doppler Study (Signed) Call,Josef - 01/26/20 Telemetry Strips 01/26/20 Brain MRI (Signed) Sue Monroy - 01/26/[address] (Signed) Carlos Hartley - 01/26/20 Wrist X-Ray (Signed) Call,Josef - 01/26/[address] (Signed) Katelyn Chen - 01/26/20 Abdomen/Pelvis CT (Signed) Herve Judge - 01/26/20 Abdomen/Pelvis CT (Signed) Zaire Quiroz - 12/25/19 Shoulder X-Ray (Signed) Romina Edward - 11/04/19 Humerus X-Ray (Signed) Kevan Tomlin - 11/04/19 Clavicle X-Ray (Signed) Kevan Tomlin - 11/04/19 Foot X-Ray (Signed) Herve Judge - 05/30/19 Chest X-Ray (Signed) Zaire Quiroz - 05/28/[address] (Signed) Kevan Tomlin - 05/27/19 Echocardiogram Ultrasound (Signed) Naila Dickey - 05/25/19 Telemetry Strips 05/25/19 Telemetry Strips 05/25/19 Launch?Image [address] [address] [address] Scan Report Signed Patient: Batsheva Burgess MR#: [id number] : 1940 Acct:[id number] Age/Sex: 81 / F Date of Service: 10/17/21 Loc: ED Accession Number: [id number] ?? Procedure: CT abdomen pelvis wo con Ordering Provider: Belen Anton D.O. PROCEDURE:? CT ABDOMEN PELVIS WO CON ? INDICATIONS:? Abdominal pain, back pain ? TECHNIQUE:? Noncontrast 5 mm thick sections acquired from the diaphragms to the symphysis.? 5 mm coronal and sagittal reformats were then performed.? For radiation dose reduction, the following was used:? automated exposure control, adjustment of mA and/or kV according to patient size.? ? COMPARISON:? [facility], CT, CT ABDOMEN PELVIS W CON, 01/26/2020, 13:41.? [facility], CR, XR CHEST 2V, 08/16/2021, 13:28.? [facility], CT, CT ABDOMEN PELVIS WO CON, 07/15/2021, 17:18. ? FINDINGS:? Image quality:? Excellent.? ? ABDOMEN:? Lung bases:? Bilateral small pleural effusions.? Bibasilar atelectasis..? Heart size is moderately increased.? There is a cardiac pacemaker.? Small hiatal hernia. ? Solid organs:? Liver is normal in size.? Gallbladder is normal .? Pancreas is normal in contours.? Spleen is normal in size.? No adrenal nodules.? Kidneys are normal in size, without hydronephrosis.? There are nonobstructive left renal calculi.? ? Peritoneum and bowel:? Unenhanced bowel loops demonstrate normal wall thickness and caliber.? Diverticulosis without diverticulitis.? Pelvis is partially obscured by strong metallic artifacts from the right hip prosthesis.? No free fluid or free air.? ? Nodes and vessels:? No retroperitoneal or mesenteric adenopathy by size criteria.? Aorta and inferior vena cava are normal in caliber.? Severe atherosclerosis. ? Miscellaneous:? No ventral hernias.? ? ? PELVIS:? Genitourinary:? Bladder wall thickness is normal.? Uterus and ovaries are unremarkable.? No pathological free-fluid in the cul-de-sac or adnexa. ? Miscellaneous:? No inguinal hernias or adenopathy.? ? Bones:? Mild compression fracture of L1 with vertebroplasty.? There is grade 1 anterolisthesis of L4 on L5.? Multilevel degenerative disc and facet disease in lumbar spine.? No suspicious bony lesions.? There is osteopenia. ? IMPRESSION:? ? 1. No acute inflammatory process is identified in abdomen or pelvis. 2. Nephrolithiasis with nonobstructive obstructive stones in left kidney. 3. Diverticulosis without acute diverticulitis. 4. Moderate cardiomegaly with cardiac pacemaker. 5. Small bilateral pleural effusions and bibasilar atelectasis. 6. Mild L1 compression fracture with vertebroplasty. 7. Severe atherosclerosis. ? ? Dictated by: Shoshana Oliver M.D. on 10/17/2021 at 16:08 ? ? Approved by: Shoshana Oliver M.D. on 10/17/2021 at 16:25?? ECG Data Attestation: I personally reviewed and interpreted this ECG as follows: Interpretation: Sinus tachycardia. Left bundle-branch block. No acute ST changes appreciated. Patient has prior from 08/16/2021 which appears similar. MDM Narrative Medical decision making narrative: This is an 81-year-old female comes emergency department unclear for pain is back or abdomen. She states her back or states she has been lying abdominal pain. She is demented and not particularly cooperative with evaluation. She does have some pain on her left back with palpation. Patient's labs show acute kidney injury with dehydration with mild elevation of her potassium, low CO2. Patient's hemoglobin appears stable, no elevation in white count, patient's urine does not show any clear signs of infection. CT abdomen pelvis shows degenerative changes, compression fracture at L1, nephrolithiasis but no ureteral lithiasis, moderate cardiomegaly, and small bilateral pleural effusions and bibasilar atelectasis. Patient does have severe atherosclerosis. Case was discussed with cardiology for suspected atrial flutter as she has persistently elevated tachycardia that is very regular on EKG there are not clear flutter waves but there is quite a bit of motion artifact. They recommend fluid resuscitation as patient is dehydrated and if pressures will tolerate giving a dose of IV Lopressor to further evaluate the rhythm and procede from there. Also discussed with her physician Dr. Davison who accepts for inpatient admission with recommendations from Cardiology. Patient was started on sepsis fluids but IV antibiotics were held as no clear source of infection is appreciated at this time. Discharge Plan Departure Patient Disposition: Admitted As Inpatient Clinical Impression: Acute kidney injury, Dehydration, Tachycardia Admit Date/Time: 10/17/21 17:16 Admit Provider: Live Castro
--- NOTE | 2021-10-17 14:26 | DI.CT.S_ITS ---
PROCEDURE: CT ABDOMEN PELVIS WO CON INDICATIONS: Abdominal pain, back pain TECHNIQUE: Noncontrast 5 mm thick sections acquired from the diaphragms to the symphysis. 5 mm coronal and sagittal reformats were then performed. For radiation dose reduction, the following was used: automated exposure control, adjustment of mA and/or kV according to patient size. COMPARISON: [facility], CT, CT ABDOMEN PELVIS W CON, 01/26/2020, 13:41. [facility], CR, XR CHEST 2V, 08/16/2021, 13:28. [facility], CT, CT ABDOMEN PELVIS WO CON, 07/15/2021, 17:18. FINDINGS: Image quality: Excellent. ABDOMEN: Lung bases: Bilateral small pleural effusions. Bibasilar atelectasis.. Heart size is moderately increased. There is a cardiac pacemaker. Small hiatal hernia. Solid organs: Liver is normal in size. Gallbladder is normal . Pancreas is normal in contours. Spleen is normal in size. No adrenal nodules. Kidneys are normal in size, without hydronephrosis. There are nonobstructive left renal calculi. Peritoneum and bowel: Unenhanced bowel loops demonstrate normal wall thickness and caliber. Diverticulosis without diverticulitis. Pelvis is partially obscured by strong metallic artifacts from the right hip prosthesis. No free fluid or free air. Nodes and vessels: No retroperitoneal or mesenteric adenopathy by size criteria. Aorta and inferior vena cava are normal in caliber. Severe atherosclerosis. Miscellaneous: No ventral hernias. PELVIS: Genitourinary: Bladder wall thickness is normal. Uterus and ovaries are unremarkable. No pathological free-fluid in the cul-de-sac or adnexa. Miscellaneous: No inguinal hernias or adenopathy. Bones: Mild compression fracture of L1 with vertebroplasty. There is grade 1 anterolisthesis of L4 on L5. Multilevel degenerative disc and facet disease in lumbar spine. No suspicious bony lesions. There is osteopenia. IMPRESSION: 1. No acute inflammatory process is identified in abdomen or pelvis. 2. Nephrolithiasis with nonobstructive obstructive stones in left kidney. 3. Diverticulosis without acute diverticulitis. 4. Moderate cardiomegaly with cardiac pacemaker. 5. Small bilateral pleural effusions and bibasilar atelectasis. 6. Mild L1 compression fracture with vertebroplasty. 7. Severe atherosclerosis. Dictated by: Shoshana Oliver M.D. on 10/17/2021 at 16:08 Approved by: Shoshana Oliver M.D. on 10/17/2021 at 16:25
--- NOTE | 2021-10-17 14:34 | PC.NURSE ---
Assisted pt to use bed nuñez, provided [id number] education and questions answered, pt repeated verbally abrasive, repeatedly stated you don't understand, I come here and nobody does anything for me, pt educated on process, therapeutic communication utilized. Pt previous complaint per is abdominal pain, Dr. Anton entered room and pt states she is here for a fall yesterday and back pain. Pt declines assessment, states keep your hands off me, educated on assessment limits, pt wishes respected. When asked about mobility, pt states I walked in here today sarcastically, pt not cooperative with verbal assessment. Pt states I just want to go home, pt attempted to reorient pt, states fall and back pain occurred 3 weeks to 1 month ago.
[2021-10-17 14:48] LABS: Add Manual Diff / Slide Review NO; Basophils Absolute Auto 100 /uL (0-100); Basophils Percent Auto 0.9 % (0-2); Eosinophils Absolute Auto 200 /uL (0-450); Eosinophils Percent Auto 2.9 % (2-4); Hematocrit 36.8 % (36-46); Lymphocytes Absolute Auto 1000 /uL (1100-4500); Lymphocytes Percent Auto 15.4 % (25-40); Mean Corpuscular HGB Conc 32.6 % (30-36); Mean Corpuscular Volume 82.8 fL (80-100); Monocytes Absolute Auto 500 /uL (0-900); Neutrophils Absolute Auto 4800 /uL (1500-7000); Neutrophils Percent Auto 73.8 % (50-75); Platelet Count 218 X10^3/uL (150-400); Red Blood Cell Count 4.44 X10^6/uL (4.0-5.2); Red Cell Distribution Width 16.6 % (11.6-14.8); White Blood Cell Count 6.4 X10^3/uL (4.5-11.0)
[2021-10-17 14:59] LABS: Alanine Aminotransferase 27 IU/L (<35); Albumin 3.8 g/dL (3.5-5.0); Albumin Globulin Ratio 1.1 (1.0-2.8); Alkaline Phosphatase 123 U/L (38-126); Aspartate Aminotransferase 40 IU/L (14-36); BUN Creatinine Ratio 47.3 (6-22); Bilirubin Total 0.9 mg/dL (0.2-1.3); Blood Urea Nitrogen 79 mg/dL (7-17); Calcium 9.1 mg/dL (8.4-10.2); Carbon Dioxide 16 mmol/L (22-32); Chloride 109 mmol/L (98-107); Estimated Glomerular Filt Rate 30 mL/min (>60); Globulin 3.4 g/dL (1.7-4.1); Glucose 172 mg/dL (80-110); Lactate (Lactic Acid) 1.2 mmol/L (0.7-2.1); Lipase 32 U/L (23-300); Sodium 135 mmol/L (137-145); Total Protein 7.2 g/dL (6.3-8.2)
[2021-10-17] MEDS: LACTATED RINGERS 671.32 ML IV (15:00)
[2021-10-17 15:03] LABS: HEMOLYSIS 64 (0-50); Potassium 5.4 mmol/L (3.4-5.1)
[2021-10-17 15:19] LABS: Creatine Kinase 66 U/L (30-135)
[2021-10-17] MEDS: ACETAMINOPHEN 325 MG TABLET 975 MG PO (15:36)
[2021-10-17 15:37] LABS: NT-proBNP (BNP-Adult 18+) 7940 pg/mL (<450); Troponin I 0.043 ng/mL (0.01-0.034)
[2021-10-17 16:28] LABS: COVID19 -Nasal RAPID Negative (Negative)
[2021-10-17 16:35] LABS: Troponin I 0.044 ng/mL (0.01-0.034)
--- NOTE | 2021-10-17 17:31 | P.HP_ITS ---
History of Present Illness History of Present Illness Date Patient Seen: 10/17/21 Time Patient Seen: 17:32 Chief complaint: Abd pain for weeks Narrative: 81-year-old female with a past medical history of chronic kidney disease moderate cognitive impairment with fluctuation of memory with cerebrovascular accident history hypertension class 4 systolic congestive heart failure intermittent atrial fibrillation insulin-dependent diabetes presents to the emergency department with her . They presented to the emergency department with concerns of back and abdominal pain she said that that she fell about a month ago. She has been having pain and discomfort since then. His gotten worse over the last few days. She does have diarrhea but she has intermittent chronic diarrhea. She has not had any issues as far as shortness of breath. Her was not aware that she was having a rapid heart pay. She was not have any issues palpitations. Her has not noticed that she has been dizzy although she spends a lot of time in the chair and walker and relies on assistance with walking in general. On my evaluation the Emergency department she is frustrated. She says she wants to go home. After talking with her about the situation and her she calms down a little bit. Patient states she is willing to go up stairs and get of bed as long as she can sit. She says she is also hungry. We reviewed her laboratory tests and her CT scan with her at this time. We discussed the potential possibilities and length of stay in the hospital. Patient's main main complaint is that she wants to sit up in bed in that she has some mild abdominal pain she is currently not complaining of headache chest pain shortness of breath she has burning and discomfort in her feet. She does recognize me. She knows she is in [place] at [facility] otherwise she is unsure of the date. Patient History Medical History Atrial fibrillation (09/20/10) Bilateral shoulder pain Bipolar disorder Bradycardia Cardiomyopathy Chronic diarrhea (06/10/16) Cognitive decline Controlled type 2 diabetes mellitus (09/20/10) Essential hypertension (09/20/10) Fatigue Head contusion History of Graves' disease History of placenta previa Irritable bowel syndrome Minor head injury without loss of consciousness Neuropathy of both feet Renal artery stenosis (09/20/10) Retinal scar Rheumatoid arthritis Right leg pain Sprain of left shoulder Stye Systolic congestive heart failure (09/20/10) Thyroid nodule Vision disorder Weakness Surgical History Anesthesia History of hip replacement History of knee replacement History of partial surgical removal of colon (06/10/16) Status post dilation and curettage Family & Social History Social History: household members spouse Safety & Behavioral: Feels Safe in Current Yes Environment Been Physically Hurt or No Threatened By a Person Tobacco & Substance use: Tobacco type cigarettes Smoking Status Former smoker alcohol intake former alcohol intake frequency 0-2 drinks per day Substance Use Type does not use Meds Home Medications and Allergies Home Medications Medication Instructions Recorded Confirmed Type acetaminophen 325 mg tablet 650 mg PO Q6HR PRN #30 tab 05/31/19 10/17/21 Rx insulin syringe-needle U-100 1 mL See Rx Instructions .ROUTE 09/10/20 10/17/21 Rx 30 gauge x 1/2 (BD Insulin .COMPLEX #100 ea Syringe Ultra-Fine) escitalopram oxalate 10 mg tablet 10 mg PO .HS #90 tab 11/06/20 10/17/21 Rx insulin glargine 100 unit/mL 40 unit (0.4 mL) SUBCUT DAILY #10 11/19/20 10/17/21 Rx subcutaneous solution (Lantus ml U-100 Insulin) DISABLED PARKING PERMIT #1 ea 03/11/21 10/17/21 Rx levothyroxine 100 mcg tablet 100 mcg PO DAILY 07/16/21 10/17/21 History spironolactone 25 mg tablet 25 mg PO DAILY #90 tab 08/15/21 10/17/21 Rx furosemide 40 mg tablet 40 mg PO BID #0 tab 08/17/21 10/17/21 Rx lisinopril 20 mg tablet 20 mg PO DAILY #90 tab 08/29/21 10/17/21 Rx diclofenac sodium 1 % topical gel 2 g TOPICAL QID PRN #100 g 09/03/21 10/17/21 Rx (Voltaren Arthritis Pain) lidocaine 4 % topical cream 1 applic TOPICAL BID PRN #15 g 09/03/21 10/17/21 Rx memantine 5 mg tablet See Rx Instructions .ROUTE 10/07/21 10/17/21 Rx .COMPLEX #90 tab trazodone 50 mg tablet See Rx Instructions .ROUTE 10/07/21 10/17/21 Rx .COMPLEX #90 tab loperamide 2 mg capsule 1 mg PO PRN PRN MDD 16MG/24HR 10/17/21 10/17/21 History Allergies Allergy/AdvReac Type Severity Reaction Status Date / Time egg Allergy Severe weakness Verified 10/17/21 13:53 on the right side of body after vaccine Anesthetics - Amide Type - Allergy Unknown Verified 10/17/21 13:53 Select A [ANESTHETICS - AMIDE TYPE] codeine [CODEINE] Allergy Unknown Verified 10/17/21 13:53 lidocaine [From XYLOCAINE] Allergy Unknown WHEN HAD Verified 10/17/21 13:53 TEETH WORKED ON lisinopril [LISINOPRIL] Allergy Unknown Verified 10/17/21 13:53 morphine [MORPHINE] Allergy Unknown Verified 10/17/21 13:53 oxycodone [OXYCODONE] Allergy Unknown Verified 10/17/21 13:53 Penicillins [PENICILLINS] Allergy Unknown Verified 10/17/21 13:53 influenza virus vaccine, Allergy weakness Verified 10/17/21 13:53 specific on the right side of body after vaccine Exam Vital Signs (past 8 hours): - 10/17/21 13:30 10/17/21 13:40 10/17/21 14:00 Temperature 98.8 F Pulse Rate 124 H 124 H 126 H Respiratory Rate 20 24 Blood Pressure 104/61 104/61 94/57 L Pulse Oximetry 95 97 94 10/17/21 14:30 10/17/21 15:00 10/17/21 15:31 Temperature Pulse Rate 126 H 125 H 124 H Respiratory Rate 24 21 28 H Blood Pressure 96/65 94/58 L Pulse Oximetry 10/17/21 16:00 10/17/21 16:30 Temperature Pulse Rate 124 H 124 H Respiratory Rate 26 H 23 Blood Pressure Pulse Oximetry 95 95 Oxygen Delivery Method Room Air Narrative Exam Narrative: Gen.: She is alert disoriented to time complaining of abdominal pain but otherwise a poor historian HEENT: Pupils equal round and reactive or mucosa is dry neck is supple Cardio: S1-S2 tachycardic with systolic murmur present Respiratory: Lungs are clear no wheezes or crackles Abdomen: Soft nontender obese no rebound or guarding Extremities: Warm dry perfused Neurologic: Grossly intact. Objective Labs Result Diagrams: 10/17/21 13:59 10/18/21 06:28 Labs: Laboratory Results - last 24 hr 10/17/21 10/17/21 10/17/21 13:59 13:59 13:59 WBC 6.4 RBC 4.44 Hgb 12.0 Hct 36.8 MCV 82.8 MCH 27.0 MCHC 32.6 RDW 16.6 H Plt Count 218 Neut % (Auto) 73.8 Lymph % (Auto) 15.4 L [place] % (Auto) 7.0 Eos % (Auto) 2.9 Baso % (Auto) 0.9 Neut # (Auto) 4800 Lymph # (Auto) 1000 L [place] # (Auto) 500 Eos # (Auto) 200 Baso # (Auto) 100 Sodium 135 L Potassium 5.4 H Chloride 109 H Carbon Dioxide 16 L BUN 79 H Creatinine 1.67 H Estimated GFR 30 L BUN/Creatinine Ratio 47.3 H Glucose 172 H Lactate 1.2 Calcium 9.1 Total Bilirubin 0.9 AST 40 H ALT 27 Alkaline Phosphatase 123 Total Creatine Kinase CK-MB (CK-2) CK-MB (CK-2) Rel Index Troponin I NT-Pro-B Natriuret Pep Total Protein 7.2 Albumin 3.8 Globulin 3.4 Albumin/Globulin Ratio 1.1 Lipase 32 SARS-CoV-2 (PCR) 10/17/21 10/17/21 10/17/21 13:59 15:30 16:00 WBC RBC Hgb Hct MCV MCH MCHC RDW Plt Count Neut % (Auto) Lymph % (Auto) [place] % (Auto) Eos % (Auto) Baso % (Auto) Neut # (Auto) Lymph # (Auto) [place] # (Auto) Eos # (Auto) Baso # (Auto) Sodium Potassium Chloride Carbon Dioxide BUN Creatinine Estimated GFR BUN/Creatinine Ratio Glucose Lactate Calcium Total Bilirubin AST ALT Alkaline Phosphatase Total Creatine Kinase 66 CK-MB (CK-2) TNP CK-MB (CK-2) Rel Index TNP Troponin I 0.043 H 0.044 H NT-Pro-B Natriuret Pep 7940 H Total Protein Albumin Globulin Albumin/Globulin Ratio Lipase SARS-CoV-2 (PCR) Negative Assessment & Plan Assessment and plan (1) Acute kidney injury: Status: Acute (2) Tachycardia: Status: Acute Plan Sinus tachycardia versus atrial flutter patient has significant sinus tachycardia with a pulse rate in the 125-130 range. Based on her EKG it looks more like sinus tachycardia but is very hard to tell she also has a bundle branch block. Her blood pressures is mildly low and has been getting some IV fluids in the emergency department. She is relatively asymptomatic from discomfort or pain standpoint. Will go ahead and continue with IV fluids and try to slow her down with the beta-mary. Once her blood pressure is stabilized. Hopefully as we slow her down we can better associated whether this is sinus tachycardia or atrial flutter. Acute kidney injury. Patient with acute kidney injury with a creatinine significantly above baseline. Patient is also has hyperkalemia which is consis tent with acute kidney injury she will be rehydrated gently with IV fluids to help improve kidney function and monitor closely her electrolytes. Hypotension patient is hypotensive and tachycardic. I do not see any signs of infection she has a normal white blood cell count. Patient is getting some IV fluids. A this is artery started approve her blood pressure. I think it is probably more dehydrated than anything else. Will see if the fluids help her hypotension and tachycardia and continue to monitor for other signs symptoms and causes such as infection. Abdominal pain subacute patient with subacute abdominal pain after a fall. CT scan was reviewed that was done in the emergency room shows no acute fracture injury trauma based on radiologist report will continue to monitor and provide Tylenol with pain relief. Elevated cardiac enzymes. Due to patient's chronic renal disease patient passes had elevated cardiac enzymes. Is slightly elevated above baseline today. Will monitor closely her cardiac enzymes and trend make sure that they are not continuing up. Chronic systolic congestive Heart failure patient had an echocardiogram last 1 showed an ejection fraction at 40% at times has been at 20% depending on where she is in her illness cycle and up appropriate treatment with RAIZA-inhibitor and beta blockers. Will monitor closely her fluid status and gently work on hydration without trying to put her in acute heart failure. Diabetes type 2. Patient will be placed on insulin and insulin sliding scale per protocol. Will monitor blood sugars closely and for hyper or hypoglycemia. Moderate cognitive impairment. Patient has fluctuation of mental staff this. No signs of acute decompensation at this time. Hypothyroidism patient will be placed on her thyroid replacement therapy. Depression patient will be continued on her antidepressant Disposition and plan. Patient will be admitted the hospital as an inpatient anticipated length of stay greater than 48 hours Time Spent With Patient Critical Care time: I spent a total of [] minutes of critical care time on this patient's care today; this time is exclusive of procedural time.
[2021-10-17] MEDS: SODIUM CHLORIDE 0.9% 1,000 ML 60 ML IV (21:06)
[2021-10-17] MEDS: METOPROLOL IR 25 MG TABLET 12.5 MG PO (21:56)
[2021-10-17] MEDS: TRAZODONE 50 MG TABLET PO (23:00)
[2021-10-17] MEDS: ESCITALOPRAM 10 MG TABLET PO (23:00)
[2021-10-18] VITALS (7 sets, daily range): BP systolic 83–109; BP diastolic 56–70; PULSE 102–122; RESP 18–29; TEMP 36.4–36.6; O2SAT 95–99
[2021-10-18] MEDS: ACETAMINOPHEN 325 MG TABLET 650 MG PO ×3 (00:46→20:20)
[2021-10-18 07:08] LABS: Creatine Kinase 65 U/L (30-135)
[2021-10-18 07:19] LABS: Troponin I 0.043 ng/mL (0.01-0.034)
[2021-10-18 07:20] LABS: BUN Creatinine Ratio 46.5 (6-22); Blood Urea Nitrogen 73 mg/dL (7-17); Calcium 8.9 mg/dL (8.4-10.2); Carbon Dioxide 17 mmol/L (22-32); Chloride 111 mmol/L (98-107); Estimated Glomerular Filt Rate 33 mL/min (>60); Glucose 83 mg/dL (80-110); HEMOLYSIS < 15 (0-50); Potassium 4.8 mmol/L (3.4-5.1); Sodium 136 mmol/L (137-145)
--- NOTE | 2021-10-18 07:49 | P.PN_ITS ---
Subjective Subjective Date Patient Seen: 10/18/21 Time Patient Seen: 07:49 Interval history: Patient seen and evaluated this morning. Patient had a christopher night. Had some confusion. Pulled out her IV a couple of times. Difficult IV start. A little bit better this morning daughter is at bedside. Patient recognizes me. She still little bit agitated but comprehensively aware that she does not feel well. She appears to be mildly short of breath which I did not appreciate last night. Care conference with family today. Patient with known congestive heart failure history. Blood pressures have been soft and quite tachycardic. Discussed with daughter family today about care plans. Whether patient needs to be transferred to the ICU for blood pressure support to be able to provide medication to improved tachycardia. Will meet with them a little bit later this morning to review their advanced wishes. Patient is a no code and no advanced aggressive m easures. Depending on their care plan we will then decide to get Cardiology involved to provide some help with the cardiac issues. Exam Vital Signs (past 8 hours): - 10/18/21 00:40 10/18/21 05:30 Temperature 97.7 F Pulse Rate 122 H Respiratory Rate 18 Blood Pressure 92/56 L 92/64 Pulse Oximetry 99 Oxygen Delivery Method Room Air Oxygen Flow Rate 0 Narrative Exam Narrative: Gen.: Alert little bit of agitation HEENT: Pupils equal round and reactive or mucosa is moist neck is supple tympanic membranes are clear Cardio: S1-S2 systolic murmur present tachycardic Respiratory: Lungs mild increased work of breathing some fine crackles Abdomen: Soft nontender obese hard to distinguish organomegaly Extremities: Lower extremity edema 1+ Objective Labs Result Diagrams: 10/17/21 13:59 10/18/21 06:28 Labs: Laboratory Results - last 24 hr 10/17/21 10/17/21 10/17/21 13:59 13:59 13:59 WBC 6.4 RBC 4.44 Hgb 12.0 Hct 36.8 MCV 82.8 MCH 27.0 MCHC 32.6 RDW 16.6 H Plt Count 218 Neut % (Auto) 73.8 Lymph % (Auto) 15.4 L [place] % (Auto) 7.0 Eos % (Auto) 2.9 Baso % (Auto) 0.9 Neut # (Auto) 4800 Lymph # (Auto) 1000 L [place] # (Auto) 500 Eos # (Auto) 200 Baso # (Auto) 100 Sodium 135 L Potassium 5.4 H Chloride 109 H Carbon Dioxide 16 L BUN 79 H Creatinine 1.67 H Estimated GFR 30 L BUN/Creatinine Ratio 47.3 H Glucose 172 H Lactate 1.2 Calcium 9.1 Total Bilirubin 0.9 AST 40 H ALT 27 Alkaline Phosphatase 123 Total Creatine Kinase CK-MB (CK-2) CK-MB (CK-2) Rel Index Troponin I NT-Pro-B Natriuret Pep Total Protein 7.2 Albumin 3.8 Globulin 3.4 Albumin/Globulin Ratio 1.1 Lipase 32 SARS-CoV-2 (PCR) 10/17/21 10/17/21 10/17/21 13:59 15:30 16:00 WBC RBC Hgb Hct MCV MCH MCHC RDW Plt Count Neut % (Auto) Lymph % (Auto) [place] % (Auto) Eos % (Auto) Baso % (Auto) Neut # (Auto) Lymph # (Auto) [place] # (Auto) Eos # (Auto) Baso # (Auto) Sodium Potassium Chloride Carbon Dioxide BUN Creatinine Estimated GFR BUN/Creatinine Ratio Glucose Lactate Calcium Total Bilirubin AST ALT Alkaline Phosphatase Total Creatine Kinase 66 CK-MB (CK-2) TNP CK-MB (CK-2) Rel Index TNP Troponin I 0.043 H 0.044 H NT-Pro-B Natriuret Pep 7940 H Total Protein Albumin Globulin Albumin/Globulin Ratio Lipase SARS-CoV-2 (PCR) Negative 10/18/21 10/18/21 06:28 06:28 WBC RBC Hgb Hct MCV MCH MCHC RDW Plt Count Neut % (Auto) Lymph % (Auto) [place] % (Auto) Eos % (Auto) Baso % (Auto) Neut # (Auto) Lymph # (Auto) [place] # (Auto) Eos # (Auto) Baso # (Auto) Sodium 136 L Potassium 4.8 Chloride 111 H Carbon Dioxide 17 L BUN 73 H Creatinine 1.57 H Estimated GFR 33 L BUN/Creatinine Ratio 46.5 H Glucose 83 Lactate Calcium 8.9 Total Bilirubin AST ALT Alkaline Phosphatase Total Creatine Kinase 65 CK-MB (CK-2) TNP CK-MB (CK-2) Rel Index TNP Troponin I 0.043 H NT-Pro-B Natriuret Pep Total Protein Albumin Globulin Albumin/Globulin Ratio Lipase SARS-CoV-2 (PCR) [facility] Medical History Atrial fibrillation (09/20/10) Bilateral shoulder pain Bipolar disorder Bradycardia Cardiomyopathy Chronic diarrhea (06/10/16) Cognitive decline Controlled type 2 diabetes mellitus (09/20/10) Essential hypertension (09/20/10) Fatigue Head contusion History of Graves' disease History of placenta previa Irritable bowel syndrome Minor head injury without loss of consciousness Neuropathy of both feet Renal artery stenosis (09/20/10) Retinal scar Rheumatoid arthritis Right leg pain Sprain of left shoulder Stye Systolic congestive heart failure (09/20/10) Thyroid nodule Vision disorder Weakness Surgical History Anesthesia History of hip replacement History of knee replacement History of partial surgical removal of colon (06/10/16) Status post dilation and curettage Social History details: She is living with her in a trailer. She is a [employer] household members: spouse Smoking Status: Former smoker alcohol intake: former Assessment & Plan Assessment and plan (1) Acute kidney injury: Status: Acute (2) Tachycardia: Status: Acute (3) Systolic congestive heart failure: Problem details: LVEF 20% Qualifiers: Heart failure chronicity: acute Qualified Code(s): I50.21 - Acute systolic (congestive) heart failure Status: Chronic Plan Sinus tachycardia less likely atrial flutter pulse rate 125-130 consistent. EKG was reviewed this morning. Has not budged. Low-dose metoprolol provided. Blo od pressures been quite soft. Care conference with family this morning to discuss next steps and plans. If blood pressure remains low and does not tolerate beta-blockers calcium channel blockers will discuss and consult with Cardiology may need to be transferred to the ICU for pressors and cardiac management. Hypotension. Patient with hypotension she lost her IV a couple of times last night. Place a midline today. Blood pressure is still quite soft. She is getting IV fluids unfortunately I think she has a little bit of heart failure going on as well as she is now a little bit more short of breath and crackles. Can be hard to treat her hypotension with just regular fluids because of her congestive heart failure. And may need pressure support again discussion with family this morning Acute kidney injury. Patient with kidney injury due to hypotension and tachycardic. Stable this morning electrolyte looks okay. Acute metabolic encephalopathy. Patient with the type symptoms of agitation anxiety pulling out IV last night. Better this morning. Patient has moderate cognitive impairment. Better with daughter at bedside. Elevated cardiac enzymes. Cardiac troponin is stable that at this point it is not increasing. Will continue to trend this. Acute systolic congestive heart failure. Patient has signs and symptoms this morning of heart failure she got some fluid in the emergency department to help with the blood pressure support yesterday. She has a little bit tachypneic and has some crackles. Because of her soft blood pressure. Concerned about the a dding diuretics. Will again discuss with family about next steps in care plan. Type 2 diabetes on insulin. Patient's blood sugars are stable at this point continue with insulin regiment. Hypothyroidism continue with thyroid replacement. Depression. Patient with the depression and will continue with her antidepressant Disposition and plan family care conference here in a few minutes. Discussed next level of care. Patient may need admission to the ICU for blood pressure support and to help with the heart failure as well as tachycardia. And would potentially need a cardiac consult. Patient and family discussed. Patient's pulse former know her RhoGAM measures and we will see where to go from there. Time Spent With Patient Critical Care time: I spent a total of [] minutes of critical care time on this patient's care today; this time is exclusive of procedural time. Quality VTE Deep Vein Thrombosis/Pulmonary Embolism Present on Admission: No
[2021-10-18] MEDS: LEVOTHYROXINE 100 MCG TABLET PO (08:50)
[2021-10-18] MEDS: ENOXAPARIN 30 MG/0.3 ML SYRINGE SUBCUT (08:50)
--- NOTE | 2021-10-18 11:14 | DI.ECHO.S_ITS ---
[facility] +---------+ : : [address] : : : : [id number] : : : : Phone: [phone]+ Echocardiogram Report + + :Name: ABRAN BETANCOURT Study Date: 10/18/2021 Height: 63 in : :[facility] ReadingLocation: Weight: 148 lb : : Gender: Female BSA: 1.7 m2 : :: 1940 Age: 81 yrs BP: 109/70 mmHg: :Reason For Study: CHF : :Ordering Physician: QUINN, : :MO Performed By: Jay Jay Haro : :Referring: MO BALL : + + Interpretation Summary Limited Echo: 1) Normal left ventricular size with severely reduced systolic function (EF 15-20%). 2) Mildly enlarged right ventricle with moderately reduced function. 3) There is moderate to severe tricuspid regurgitation. 4) The right ventricular systolic pressure is estimated to be at least 45 mmHg based on an estimated right atrial pressure of 15 mm Hg. 5) Compared to the Echo done 07/16/2021, LVEF has decreased from 40-45% to 15- 20% on this study. Procedure: A two-dimensional transthoracic echocardiogram with color flow and Doppler was performed in limited views only. The study quality was technically adequate. Comparison is made with the echocardiogram of 07/16/2021. Left Ventricle: The left ventricle is normal in size. Left ventricular systolic function is severely reduced. The ejection fraction is estimated to be 15-20%. There is severe global hypokinesis of the left ventricle. Right Ventricle: The right ventricle is mildly dilated. Right ventricular systolic function is moderately reduced. Tricuspid Valve: The tricuspid valve leaflets are thin and pliable. There is moderate to severe tricuspid regurgitation. The right ventricular systolic pressure is estimated to be at least 45 mmHg based on an estimated right atrial pressure of 15 mm Hg. Great Vessels: The IVC is dilated (diameter is greater than 2.1 cm) and it collapses less than 50% with a sniff. This suggests a high right atrial pressure of 15 mm Hg. Pericardium/ Pleura There is no pericardial effusion. There is no pleural effusion. MMode/2D Measurements & Calculations LVIDd: 5.7 cm LA length (vol): 6.2 cm LVIDs: 5.3 cm FS: 6.8 % IVSd: 1.6 cm LVPWd: 0.61 cm LV garcia. diameter/BSA (cm/m^2): 3.3 LV sys. diameter/BSA (cm/m^2): 3.1 RA area: 22.1 cm2 RVD1 (basal): 4.3 cm IVC diam: 2.5 cm TAPSE: 1.4 cm LVAs ap4: 28.8 cm2 LVAs ap2: 25.1 cm2 LVLs ap4: 6.6 cm LVLs ap2: 6.3 cm LA A2C-A/L_phl: 25.1 cm2 LA A4C-A/L_phl: 28.8 cm2 Doppler Measurements & Calculations TR max william: 302.3 cm/sec TR max P.5 mmHg Reading Physician:02:08 PM
--- NOTE | 2021-10-18 11:30 | PC.NURSE ---
Day shift: Pt moved to ICU at approx 1130. Report given to residential electrician Tory t this time also. Pt's Daughter aware. Moved all Pt's belongings to room 228 as well.
--- NOTE | 2021-10-18 11:30 | PT-IP ANOTE ---
Hold PT today per nsng due to medical status change; ICU transfer. Reassess tomorrow 10/19/2021.
--- NOTE | 2021-10-18 11:38 | P.TELICUCN_ITS ---
History of Present Illness Consult details Chief complaint: Abd pain for weeks Narrative: Patient is a 81 year old female with history of dementia, CVA, HTN, atrial fibrillation not on AC, and CHF admitted for abdominal pain and shortness of breath. CT abdomen/pelvis showed nephrolithiasis and bilateral pleural effusion. She was started on IVF. Hospital course complicated with radpid A fib w/ RVR and hypotension. Tele director of perioperative services consulted for further management. Review of TTE 06/2021 showed EF 40-45% and moderately dilated LA. Labs notable for BUN 73 and Cr 1.57. Per discussion with hospitalist, patient is a DNR/DNI but okay to vasopressor support. [facility] Medical History Atrial fibrillation (09/20/10) Bilateral shoulder pain Bipolar disorder Bradycardia Cardiomyopathy Chronic diarrhea (06/10/16) Cognitive decline Controlled type 2 diabetes mellitus (09/20/10) Essential hypertension (09/20/10) Fatigue Head contusion History of Graves' disease History of placenta previa Irritable bowel syndrome Minor head injury without loss of consciousness Neuropathy of both feet Renal artery stenosis (09/20/10) Retinal scar Rheumatoid arthritis Right leg pain Sprain of left shoulder Stye Systolic congestive heart failure (09/20/10) Thyroid nodule Vision disorder Weakness Surgical History Anesthesia History of hip replacement History of knee replacement History of partial surgical removal of colon (06/10/16) Status post dilation and curettage Social History details: She is living with her in a trailer. She is a [employer] household members: spouse Smoking Status: Former smoker alcohol intake: former Current Medications Current Medications Medications: Home Medications acetaminophen 325 mg tablet 650 mg PO Q6HR PRN #30 tab 05/31/19 [Rx Confirmed 10/17/21] insulin syringe-needle U-100 1 mL 30 gauge x 1/2 (BD Insulin Syringe Ultra- Fine) See Rx Instructions .ROUTE .COMPLEX #100 ea 09/10/20 [Rx Confirmed 10/17/21] escitalopram oxalate 10 mg tablet 10 mg PO .HS #90 tab 06/15/21 [Rx Confirmed 10/17/21] insulin glargine 100 unit/mL subcutaneous solution (Lantus U-100 Insulin) 40 unit (0.4 mL) SUBCUT DAILY #10 ml 11/19/20 [Rx Confirmed 10/17/21] DISABLED PARKING PERMIT #1 ea 03/11/21 [Rx Confirmed 10/17/21] levothyroxine 100 mcg tablet 100 mcg PO DAILY 07/16/21 [History Confirmed 10/17/21] spironolactone 25 mg tablet 25 mg PO DAILY #90 tab 08/15/21 [Rx Confirmed 10/17/21] furosemide 40 mg tablet 40 mg PO BID #0 tab 08/17/21 [Rx Confirmed 10/17/21] lisinopril 20 mg tablet 20 mg PO DAILY #90 tab 08/29/21 [Rx Confirmed 10/17/21] diclofenac sodium 1 % topical gel (Voltaren Arthritis Pain) 2 g TOPICAL QID PRN #100 g 09/03/21 [Rx Confirmed 10/17/21] lidocaine 4 % topical cream 1 applic TOPICAL BID PRN #15 g 09/03/21 [Rx Confirmed 10/17/21] memantine 5 mg tablet See Rx Instructions .ROUTE .COMPLEX #90 tab 10/07/21 [Rx Confirmed 10/17/21] trazodone 50 mg tablet See Rx Instructions .ROUTE .COMPLEX #90 tab 10/07/21 [Rx Confirmed 10/17/21] loperamide 2 mg capsule 1 mg PO PRN PRN MDD 16MG/24HR 10/17/21 [History Confir med 10/17/21] Visit Medications (administered) Generic Name Dose Route Start Last Admin Trade Name Nima PRN Reason Stop Dose Admin Acetaminophen 650 mg 10/17/21 20:03 10/18/21 08:49 Acetaminophen 325 Mg Tablet PO 650 mg Q6HR PRN Administration Fever/Mild Pain (1-3) Enoxaparin Sodium 30 mg 10/18/21 09:00 10/18/21 08:50 Enoxaparin 30 Mg/0.3 Ml Syringe SUBCUT 30 mg DAILY KIKO Administration Escitalopram Oxalate 10 mg 10/17/21 21:00 10/17/21 23:00 Escitalopram 10 Mg Tablet PO 10 mg BEDTIME KIKO Administration Sodium Chloride 1,000 mls @ 60 mls/hr 10/17/21 20:03 10/17/21 21:06 Normal Saline 0.9% IV 60 mls/hr CONT KIKO Administration Insulin Glargine 40 unit 10/18/21 09:00 10/18/21 08:27 Insulin Glargine 100 Unit/Ml 3ml Pen SUBCUT Not Given DAILY KIKO Insulin Human Lispro 0 unit 10/17/21 21:00 10/18/21 08:26 Insulin Lispro 100 Unit/Ml 3ml Vial SUBCUT Not Given ACHS [facility] Protocol Levothyroxine Sodium 100 mcg 10/18/21 09:00 10/18/21 08:50 Levothyroxine 100 Mcg Tablet PO 100 mcg DAILY KIKO Administration Trazodone HCl 50 mg 10/17/21 21:00 10/17/21 23:00 Trazodone 50 Mg Tablet PO 50 mg BEDTIME KIKO Administration Exam Vital Signs (past 8 hours): - 10/18/21 05:30 Temperature 97.7 F Pulse Rate 122 H Respiratory Rate 18 Blood Pressure 92/64 Pulse Oximetry 99 Oxygen Delivery Method Room Air Oxygen Flow Rate 0 Objective Labs Result Diagrams: 10/17/21 13:59 10/18/21 06:28 Labs: Laboratory Results - last 24 hr 10/17/21 10/17/21 10/17/21 13:59 13:59 13:59 WBC 6.4 RBC 4.44 Hgb 12.0 Hct 36.8 MCV 82.8 MCH 27.0 MCHC 32.6 RDW 16.6 H Plt Count 218 Neut % (Auto) 73.8 Lymph % (Auto) 15.4 L [place] % (Auto) 7.0 Eos % (Auto) 2.9 Baso % (Auto) 0.9 Neut # (Auto) 4800 Lymph # (Auto) 1000 L [place] # (Auto) 500 Eos # (Auto) 200 Baso # (Auto) 100 Sodium 135 L Potassium 5.4 H Chloride 109 H Carbon Dioxide 16 L BUN 79 H Creatinine 1.67 H Estimated GFR 30 L BUN/Creatinine Ratio 47.3 H Glucose 172 H Lactate 1.2 Calcium 9.1 Total Bilirubin 0.9 AST 40 H ALT 27 Alkaline Phosphatase 123 Total Creatine Kinase CK-MB (CK-2) CK-MB (CK-2) Rel Index Troponin I NT-Pro-B Natriuret Pep Total Protein 7.2 Albumin 3.8 Globulin 3.4 Albumin/Globulin Ratio 1.1 Lipase 32 SARS-CoV-2 (PCR) 10/17/21 10/17/21 10/17/21 13:59 15:30 16:00 WBC RBC Hgb Hct MCV MCH MCHC RDW Plt Count Neut % (Auto) Lymph % (Auto) [place] % (Auto) Eos % (Auto) Baso % (Auto) Neut # (Auto) Lymph # (Auto) [place] # (Auto) Eos # (Auto) Baso # (Auto) Sodium Potassium Chloride Carbon Dioxide BUN Creatinine Estimated GFR BUN/Creatinine Ratio Glucose Lactate Calcium Total Bilirubin AST ALT Alkaline Phosphatase Total Creatine Kinase 66 CK-MB (CK-2) TNP CK-MB (CK-2) Rel Index TNP Troponin I 0.043 H 0.044 H NT-Pro-B Natriuret Pep 7940 H Total Protein Albumin Globulin Albumin/Globulin Ratio Lipase SARS-CoV-2 (PCR) Negative 10/18/21 10/18/21 06:28 06:28 WBC RBC Hgb Hct MCV MCH MCHC RDW Plt Count Neut % (Auto) Lymph % (Auto) [place] % (Auto) Eos % (Auto) Baso % (Auto) Neut # (Auto) Lymph # (Auto) [place] # (Auto) Eos # (Auto) Baso # (Auto) Sodium 136 L Potassium 4.8 Chloride 111 H Carbon Dioxide 17 L BUN 73 H Creatinine 1.57 H Estimated GFR 33 L BUN/Creatinine Ratio 46.5 H Glucose 83 Lactate Calcium 8.9 Total Bilirubin AST ALT Alkaline Phosphatase Total Creatine Kinase 65 CK-MB (CK-2) TNP CK-MB (CK-2) Rel Index TNP Troponin I 0.043 H NT-Pro-B Natriuret Pep Total Protein Albumin Globulin Albumin/Globulin Ratio Lipase SARS-CoV-2 (PCR) Assessment & Plan Assessment & Plan narrative: NEURO: # Decondition -- Seek PT/OT and OOB as tolerated RESP: -- On room air -- Enocurage IS and OOB as tolerated CVS: # Acute on chronic CHF exacerbation -- Start lasix 40 mg IV BID to seek net negative fluid balance -- No Herminio-I or BB due to hypotension -- Strict I/O -- Awaiting for cardiology evaluation # Hypotension -- Secondarion to cardiogenic from volume overload -- Start diuresis as above -- Will need PICC line placement for potential levphed support -- MAP goal > 65 # A. fib w/ RVR -- Currently hypotensive and not a candidate for diltiazem -- Ordered digoxin 125 mcg IV once -- Start diuresis as above -- Check TSH -- High lytes goal -- Goal HR < 110 : # DAHIANA on CKD -- Secondary to renal venous congestion -- Cont diuresis as above -- Avoid nephrotoxin agents -- Daily BMP -- Monitor UOP GI: # Abdomina pain -- Secondary to functional gastritis vs nephrotlithiasis -- Pain control -- Start bowel regimen to seek 1-2 BM daily ENDO: -- Goal BS < 180 Code status DNR/DNI. D/w Dr. Castro and RN Caitlin. Time Spent With Patient Critical Care time: I spent a total of [] minutes of critical care time on this patient's care today; this time is exclusive of procedural time.
[2021-10-18] MEDS: DIGOXIN 500 MCG/2 ML AMPUL 125 MCG IV (12:15)
[2021-10-18] MEDS: FUROSEMIDE 40 MG/4 ML VIAL IV (12:15)
--- NOTE | 2021-10-18 13:00 | PM.CN ---
History of Present Illness Consult details Chief complaint: Abd pain for weeks Narrative: The patient is an elderly woman with mild dementia admitted with abd pain. She was noted to have persistent atrial tachycardia vs atypical flutter on telemetry and ECG and cardiology is consulted for management. Patient states that her abd pain has pretty much resolved. Her chronic intermittent diarrhea is also better today. She has chronic PND. Denies chest pain, heart racing sensations, lightheadedness, or syncope. Meds Home Medications and Allergies Home Medications Medication Instructions Recorded Confirmed Type acetaminophen 325 mg tablet 650 mg PO Q6HR PRN #30 tab 05/31/19 10/17/21 Rx insulin syringe-needle U-100 1 mL See Rx Instructions .ROUTE 09/10/20 10/17/21 Rx 30 gauge x 1/2 (BD Insulin .COMPLEX #100 ea Syringe Ultra-Fine) escitalopram oxalate 10 mg tablet 10 mg PO .HS #90 tab 11/06/20 10/17/21 Rx insulin glargine 100 unit/mL 40 unit (0.4 mL) SUBCUT DAILY #10 11/19/20 10/17/21 Rx subcutaneous solution (Lantus ml U-100 Insulin) DISABLED PARKING PERMIT #1 ea 03/11/21 10/17/21 Rx levothyroxine 100 mcg tablet 100 mcg PO DAILY 07/16/21 10/17/21 History spironolactone 25 mg tablet 25 mg PO DAILY #90 tab 08/15/21 10/17/21 Rx furosemide 40 mg tablet 40 mg PO BID #0 tab 08/17/21 10/17/21 Rx lisinopril 20 mg tablet 20 mg PO DAILY #90 tab 08/29/21 10/17/21 Rx diclofenac sodium 1 % topical gel 2 g TOPICAL QID PRN #100 g 09/03/21 10/17/21 Rx (Voltaren Arthritis Pain) lidocaine 4 % topical cream 1 applic TOPICAL BID PRN #15 g 09/03/21 10/17/21 Rx memantine 5 mg tablet See Rx Instructions .ROUTE 10/07/21 10/17/21 Rx .COMPLEX #90 tab trazodone 50 mg tablet See Rx Instructions .ROUTE 10/07/21 10/17/21 Rx .COMPLEX #90 tab loperamide 2 mg capsule 1 mg PO PRN PRN MDD 16MG/24HR 10/17/21 10/17/21 History Allergies Allergy/AdvReac Type Severity Reaction Status Date / Time egg Allergy Severe weakness Verified 10/17/21 13:53 on the right side of body after vaccine Anesthetics - Amide Type - Allergy Unknown Verified 10/17/21 13:53 Select A [ANESTHETICS - AMIDE TYPE] codeine [CODEINE] Allergy Unknown Verified 10/17/21 13:53 lidocaine [From XYLOCAINE] Allergy Unknown WHEN HAD Verified 10/17/21 13:53 TEETH WORKED ON lisinopril [LISINOPRIL] Allergy Unknown Verified 10/17/21 13:53 morphine [MORPHINE] Allergy Unknown Verified 10/17/21 13:53 oxycodone [OXYCODONE] Allergy Unknown Verified 10/17/21 13:53 Penicillins [PENICILLINS] Allergy Unknown Verified 10/17/21 13:53 influenza virus vaccine, Allergy weakness Verified 10/17/21 13:53 specific on the right side of body after vaccine Review of Systems Review of Systems Narrative: per hpi and otherwise unremarkable Exam Vital Signs (past 8 hours): - 10/18/21 05:30 10/18/21 12:15 Temperature 97.7 F Pulse Rate 122 H 122 H Respiratory Rate 18 Blood Pressure 92/64 99/56 L Pulse Oximetry 99 Oxygen Delivery Method Room Air Oxygen Flow Rate 0 Narrative Exam Narrative: Gen eugenio: NAD, elderly, pleasant, cooperative HEENT: NCAT, no sclerus icterus CV: tachycardia, no m/r/g Resp: Good aeration, coarse b/l Abd: soft, +BS Neuro: alert, moving all four extremities symmetrically Psych: appropriate affect Skin: no rash Objective ECG Impression: ECG 10/17/2021: atrial tachycardia or atypical flutter with LBBB Labs Result Diagrams: 10/17/21 13:59 10/18/21 06:28 Labs: Laboratory Results - last 24 hr 10/17/21 10/17/21 10/17/21 13:59 13:59 13:59 WBC 6.4 RBC 4.44 Hgb 12.0 Hct 36.8 MCV 82.8 MCH 27.0 MCHC 32.6 RDW 16.6 H Plt Count 218 Neut % (Auto) 73.8 Lymph % (Auto) 15.4 L [place] % (Auto) 7.0 Eos % (Auto) 2.9 Baso % (Auto) 0.9 Neut # (Auto) 4800 Lymph # (Auto) 1000 L [place] # (Auto) 500 Eos # (Auto) 200 Baso # (Auto) 100 Sodium 135 L Potassium 5.4 H Chloride 109 H Carbon Dioxide 16 L BUN 79 H Creatinine 1.67 H Estimated GFR 30 L BUN/Creatinine Ratio 47.3 H Glucose 172 H Lactate 1.2 Calcium 9.1 Total Bilirubin 0.9 AST 40 H ALT 27 Alkaline Phosphatase 123 Total Creatine Kinase CK-MB (CK-2) CK-MB (CK-2) Rel Index Troponin I NT-Pro-B Natriuret Pep Total Protein 7.2 Albumin 3.8 Globulin 3.4 Albumin/Globulin Ratio 1.1 Lipase 32 SARS-CoV-2 (PCR) 10/17/21 10/17/21 10/17/21 13:59 15:30 16:00 WBC RBC Hgb Hct MCV MCH MCHC RDW Plt Count Neut % (Auto) Lymph % (Auto) [place] % (Auto) Eos % (Auto) Baso % (Auto) Neut # (Auto) Lymph # (Auto) [place] # (Auto) Eos # (Auto) Baso # (Auto) Sodium Potassium Chloride Carbon Dioxide BUN Creatinine Estimated GFR BUN/Creatinine Ratio Glucose Lactate Calcium Total Bilirubin AST ALT Alkaline Phosphatase Total Creatine Kinase 66 CK-MB (CK-2) TNP CK-MB (CK-2) Rel Index TNP Troponin I 0.043 H 0.044 H NT-Pro-B Natriuret Pep 7940 H Total Protein Albumin Globulin Albumin/Globulin Ratio Lipase SARS-CoV-2 (PCR) Negative 10/18/21 10/18/21 06:28 06:28 WBC RBC Hgb Hct MCV MCH MCHC RDW Plt Count Neut % (Auto) Lymph % (Auto) [place] % (Auto) Eos % (Auto) Baso % (Auto) Neut # (Auto) Lymph # (Auto) [place] # (Auto) Eos # (Auto) Baso # (Auto) Sodium 136 L Potassium 4.8 Chloride 111 H Carbon Dioxide 17 L BUN 73 H Creatinine 1.57 H Estimated GFR 33 L BUN/Creatinine Ratio 46.5 H Glucose 83 Lactate Calcium 8.9 Total Bilirubin AST ALT Alkaline Phosphatase Total Creatine Kinase 65 CK-MB (CK-2) TNP CK-MB (CK-2) Rel Index TNP Troponin I 0.043 H NT-Pro-B Natriuret Pep Total Protein Albumin Globulin Albumin/Globulin Ratio Lipase SARS-CoV-2 (PCR) PFSH Medical History Atrial fibrillation (09/20/10) Bilateral shoulder pain Bipolar disorder Bradycardia Cardiomyopathy Chronic diarrhea (06/10/16) Cognitive decline Controlled type 2 diabetes mellitus (09/20/10) Essential hypertension (09/20/10) Fatigue Head contusion History of Graves' disease History of placenta previa Irritable bowel syndrome Minor head injury without loss of consciousness Neuropathy of both feet Renal artery stenosis (09/20/10) Retinal scar Rheumatoid arthritis Right leg pain Sprain of left shoulder Stye Systolic congestive heart failure (09/20/10) Thyroid nodule Vision disorder Weakness Surgical History Anesthesia History of hip replacement History of knee replacement History of partial surgical removal of colon (06/10/16) Status post dilation and curettage Social History details: She is living with her in a trailer. She is a [employer] household members: spouse Tobacco & Substance Use Smoking Status: Former smoker alcohol intake: former Assessment & Plan Assessment & Plan narrative: # Atrial tachycardia vs atrial flutter with RVR: no symptoms. I am concerned that she may get tachycardia mediated cardiomyopathy from it. Plan: - Start amiodarone IV 150mg bolus over 30 minutes and then drip - Start eliquis 2.5mg bid (renal and age dosing) - If the rhythm doesn't convert within 48 hrs of IV amiodarone, she would need to be transferred to [facility] for FITO guided DCCV - Agree with limited Echo # Chronic LBBB # Mild dementia Thank you for the interesting consultation. Cardiology is available if there are further questions. Time Spent With Patient Critical Care time: I spent a total of [] minutes of critical care time on this patient's care today; this time is exclusive of procedural time.
--- NOTE | 2021-10-18 13:01 | PC.NURSE ---
Transferred from 206 to ICU 228, HR 120 sustained, even with activity. Tele ICU consult, stop IVF, Lasix given, monitor for Soft BP. Echo pending, Cardiology consult, Dr Dickey at bedside, discussion about POC and potential transfer to [facility] for cardioversion. would like to to try amioderone gtt here initially, if unsuccessful, plan to send her to [facility] Thursday.
[2021-10-18 13:02] LABS: TSH w/ Reflex to FT4 2.05 uIU/mL (0.47-4.68)
--- NOTE | 2021-10-18 13:36 | PT-IP ANOTE ---
Pt continues to have a high HR ~ 120 + and is not appropriate for PT eval today. nurse stated that pt started on medication right now and hopefully more stable tomorrow. will f/u tomorrow.
[2021-10-18] MEDS: AMIODARONE 150 MG/100 ML PIGGYBACK 33 MG IV (13:51)
[2021-10-18] MEDS: AMIODARONE 360 MG/200 ML PIGGYBACK 33.3 MG IV (17:06)
[2021-10-18] MEDS: TRAZODONE 50 MG TABLET PO (20:20)
[2021-10-18] MEDS: ESCITALOPRAM 10 MG TABLET PO (20:21)
--- NOTE | 2021-10-18 20:48 | PM.ICURNDS ---
- :: This patient was seen via real time interactive two-way audiovisual telecommunication. Note: patietn remains in afib and amio gtt. hemodynamics are adequate, diuresing well after lasix. - contiue amio protocol for now, f/u AM labs and trend lft
[2021-10-18] MEDS: MELATONIN 3 MG TABLET 6 MG PO (21:07)
[2021-10-18] MEDS: AMIODARONE 360 MG/200 ML PIGGYBACK 16.7 MG IV (23:10)
[2021-10-19] VITALS (11 sets, daily range): BP systolic 76–104; BP diastolic 50–73; PULSE 83–119; RESP 14–32; TEMP 36.2–37.2; O2SAT 26–100
--- NOTE | 2021-10-19 00:42 | PC.NURSE ---
Addendum entered by Izabella Holland R.N. 10/19/21 06:20: Patient requesting to get OOB to chair after use of BSC. Daughter notes improvement with patient's sleep after Melatonin administration, but noted patient more restless upon awakening. Patient dozing in chair with warm blankets. HR 110-115, Aflutter, BBB. BP 94/59 MAP 71. Amiodarone drip remains off. Original Note: 2245 Amiodarone drip infusing at 33.3ml/hr BP at 82/68 with MAP 68. HR 102 Remains in Aflutter. Amiodarone drip reduced to 16.7 mls/hr per protocol. BP rechecked at 2330 91/57 MAP 67, HR 82. Amiodarone at 16.7 ml/hr. Answering Service paged to notify of BP. 0000 BP 76/55 MAP 60, HR 95 Dr. Paiz texted at personal cell phone. Amiodarone drip paused. Spoke to Dr. Paiz at 0020 regarding hypotension and suspension of Amiodarone drip. Orders received to leave Amiodarone off unless HR exceeds 120 and if BP MAP is greater than or equal to 65. HR currently 80s to 102, Aflutter with occasional Paced Beats.
--- NOTE | 2021-10-19 09:02 | P.TELICUPN_ITS ---
Subjective Subjective Interval history: Patient summary: 81 year old woman with PMH of dementia, CVA, HTN, atrial fibrillation not on AC, and CHF admitted for abdominal pain and shortness of breath. CT abdomen/pelvis showed nephrolithiasis and bilateral pleural effusion. Hospital course complicated with delirium, radpid A fib w/ RVR and hypotension. TTE 10/18/21 showed worsened EF to 15-20% compared to 40-45% 07/16/21. Patient is a DNR/DNI but okay to vasopressor support. Recent events: -Mma Fighter recommended Amio yesterday (and if no conversion to NSR within 48 hours then transfer to another hospital for FITO guided DCCV) -Amio drip was held last night because of hypotension -patient remains in Afib with HR 100-110s - Echo yesterday: 1) Normal left ventricular size with severely reduced systolic function (EF 15-20%). 2) Mildly enlarged right ventricle with moderately reduced function. 3) There is moderate to severe tricuspid regurgitation. 4) The right ventricular systolic pressure is estimated to be at least 45 mmHg based on an estimated right atrial pressure of 15 mm Hg. 5) Compared to the Echo done 07/16/2021, LVEF has decreased from 40-45% to 15- 20% on this study. Current Medications Current Medications Medications: Home Medications acetaminophen 325 mg tablet 650 mg PO Q6HR PRN #30 tab 05/31/19 [Rx Confirmed 10/17/21] insulin syringe-needle U-100 1 mL 30 gauge x 1/2 (BD Insulin Syringe Ultra- Fine) See Rx Instructions .ROUTE .COMPLEX #100 ea 09/10/20 [Rx Confirmed 10/17/21] escitalopram oxalate 10 mg tablet 10 mg PO .HS #90 tab 11/06/20 [Rx Confirmed 10/17/21] insulin glargine 100 unit/mL subcutaneous solution (Lantus U-100 Insulin) 40 unit (0.4 mL) SUBCUT DAILY #10 ml 11/19/20 [Rx Confirmed 10/17/21] DISABLED PARKING PERMIT #1 ea 03/11/21 [Rx Confirmed 10/17/21] levothyroxine 100 mcg tablet 100 mcg PO DAILY 07/16/21 [History Confirmed 10/17/21] spironolactone 25 mg tablet 25 mg PO DAILY #90 tab 08/15/21 [Rx Confirmed 10/17/21] furosemide 40 mg tablet 40 mg PO BID #0 tab 08/17/21 [Rx Confirmed 10/17/21] lisinopril 20 mg tablet 20 mg PO DAILY #90 tab 08/29/21 [Rx Confirmed 10/17/21] diclofenac sodium 1 % topical gel (Voltaren Arthritis Pain) 2 g TOPICAL QID PRN #100 g 09/03/21 [Rx Confirmed 10/17/21] lidocaine 4 % topical cream 1 applic TOPICAL BID PRN #15 g 09/03/21 [Rx Confirmed 10/17/21] memantine 5 mg tablet See Rx Instructions .ROUTE .COMPLEX #90 tab 10/07/21 [Rx Confirmed 10/17/21] trazodone 50 mg tablet See Rx Instructions .ROUTE .COMPLEX #90 tab 10/07/21 [Rx Confirmed 10/17/21] loperamide 2 mg capsule 1 mg PO PRN PRN MDD 16MG/24HR 10/17/21 [History Confirmed 10/17/21] Visit Medications (administered) Generic Name Dose Route Start Last Admin Trade Name Freq PRN Reason Stop Dose Admin Acetaminophen 650 mg 10/17/21 20:03 10/18/21 20:20 Acetaminophen 325 Mg Tablet PO 650 mg Q6HR PRN Administration Fever/Mild Pain (1-3) Enoxaparin Sodium 30 mg 10/18/21 09:00 10/18/21 08:50 Enoxaparin 30 Mg/0.3 Ml Syringe SUBCUT 30 mg DAILY KIKO Administration Escitalopram Oxalate 10 mg 10/17/21 21:00 10/18/21 20:21 Escitalopram 10 Mg Tablet PO 10 mg BEDTIME KIKO Administration Amiodarone HCl/Dextrose 360 mg in 200 mls @ 16.7 mls/hr 10/18/21 23:00 10/19/21 00:03 Nexterone IV 10/19/21 10:59 0 mls/hr CONT KIKO 0 mls/hr Titration Protocol Insulin Glargine 40 unit 10/18/21 09:00 10/18/21 08:27 Insulin Glargine 100 Unit/Ml 3ml Pen SUBCUT Not Given DAILY KIKO Insulin Human Lispro 0 unit 10/17/21 21:00 10/18/21 21:10 Insulin Lispro 100 Unit/Ml 3ml Vial SUBCUT Not Given ACHS KIKO Protocol Levothyroxine Sodium 100 mcg 10/18/21 09:00 10/18/21 08:50 Levothyroxine 100 Mcg Tablet PO 100 mcg DAILY KIKO Administration Melatonin 6 mg 10/18/21 21:00 10/18/21 21:07 Melatonin 3 Mg Tablet PO 6 mg BEDTIME KIKO Administration Trazodone HCl 50 mg 10/17/21 21:00 10/18/21 20:20 Trazodone 50 Mg Tablet PO 50 mg BEDTIME KIKO Administration Objective Labs Result Diagrams: 10/17/21 13:59 10/18/21 06:28 Labs: Laboratory Results - last 24 hr 10/18/21 12:12 TSH 2.05 Exam Vital Signs (past 8 hours): - 10/19/21 02:00 10/19/21 04:00 10/19/21 06:00 Temperature 97.8 F Pulse Rate 109 H 105 H 113 H Respiratory Rate 27 H 22 18 Blood Pressure 94/64 87/50 L 94/59 L Pulse Oximetry 96 98 99 10/19/21 08:00 Temperature 99.0 F Pulse Rate 83 Respiratory Rate 17 Blood Pressure 96/62 Pulse Oximetry 100 Oxygen Delivery Method Room Air Oxygen Flow Rate 0 Quality TeleICU VTE Deep Vein Thrombosis/Pulmonary Embolism Present on Admission: No Assessment & Plan Assessment & Plan narrative: Assessment Afib with RVR Cardiomyopathy EF 15-20% [place] [address] Teleintensivist Consult Note Patient: Batsheva Burgess MR#: [id number] : 1940 Acct:[id number] Age/Sex: 81 / F ? Date of Service: 10/17/21 Provider:?Thang Castro MD History of Present Illness Consult details Chief complaint: Abd pain for weeks Narrative: Patient is a 81 year old female with history of dementia, CVA, HTN, atrial fibrillation not on AC, and CHF admitted for abdominal pain and shortness of breath. CT abdomen/pelvis showed nephrolithiasis and bilateral pleural effusion. She was started on IVF. Hospital course complicated with radpid A fib w/ RVR and hypotension. Tele slide forming machine tender consulted for further management.? Review of TTE 06/2021 showed EF 40-45% and moderately dilated LA. Labs notable for BUN 73 and Cr 1.57. Per discussion with hospitalist, patient is a DNR/DNI but okay to vasopressor support. [facility] Medical History? Atrial fibrillation (09/20/10) Bilateral shoulder pain Bipolar disorder Bradycardia Cardiomyopathy Chronic diarrhea (06/10/16) Cognitive decline Controlled type 2 diabetes mellitus (09/20/10) Essential hypertension (09/20/10) Fatigue Head contusion History of Graves' disease History of placenta previa Irritable bowel syndrome Minor head injury without loss of consciousness Neuropathy of both feet Renal artery stenosis (09/20/10) Retinal scar Rheumatoid arthritis Right leg pain Sprain of left shoulder Stye Systolic congestive heart failure (09/20/10) Thyroid nodule Vision disorder Weakness Surgical History? Anesthesia History of hip replacement History of knee replacement History of partial surgical removal of colon (06/10/16) Status post dilation and curettage Social History? details:? She is living with her in a trailer.? She is a [employer] household members:? spouse Smoking Status:? Former smoker alcohol intake:? former Current Medications Current Medications Medications: Home Medications acetaminophen 325 mg tablet 650 mg PO Q6HR PRN #30 tab 05/31/19 [Rx Confirmed 10/17/21] insulin syringe-needle U-100 1 mL 30 gauge x 1/2 (BD Insulin Syringe Ultra- Fine) See Rx Instructions .ROUTE .COMPLEX #100 ea 09/10/20 [Rx Confirmed 10/17/21] escitalopram oxalate 10 mg tablet 10 mg PO .HS #90 tab 11/06/20 [Rx Confirmed 10/17/21] insulin glargine 100 unit/mL subcutaneous solution (Lantus U-100 Insulin) 40 unit (0.4 mL) SUBCUT DAILY #10 ml 11/19/20 [Rx Confirmed 10/17/21] DISABLED PARKING PERMIT #1 ea 03/11/21 [Rx Confirmed 10/17/21] levothyroxine 100 mcg tablet 100 mcg PO DAILY 07/16/21 [History Confirmed 10/17/21] spironolactone 25 mg tablet 25 mg PO DAILY #90 tab 08/15/21 [Rx Confirmed 10/17/21] furosemide 40 mg tablet 40 mg PO BID #0 tab 08/17/21 [Rx Confirmed 10/17/21] lisinopril 20 mg tablet 20 mg PO DAILY #90 tab 08/29/21 [Rx Confirmed 10/17/21] diclofenac sodium 1 % topical gel (Voltaren Arthritis Pain) 2 g TOPICAL QID PRN #100 g 09/03/21 [Rx Confirmed 10/17/21] lidocaine 4 % topical cream 1 applic TOPICAL BID PRN #15 g 09/03/21 [Rx Confirmed 10/17/21] memantine 5 mg tablet See Rx Instructions .ROUTE .COMPLEX #90 tab 10/07/21 [Rx Confirmed 10/17/21] trazodone 50 mg tablet See Rx Instructions .ROUTE .COMPLEX #90 tab 10/07/21 [Rx Confirmed 10/17/21] loperamide 2 mg capsule 1 mg PO PRN PRN MDD 16MG/24HR 10/17/21 [History Confirmed 10/17/21] Visit Medications (administered) Generic Name Dose Route Start Last Admin ? Trade Name Freq? PRN Reason Stop Dose Admin Acetaminophen ?650 mg ?10/17/21 20:03 ?10/18/21 08:49 ? Acetaminophen 325 Mg Tablet ?PO ?B ?650 mg ? ?Q6HR PRN ? ?Administration ? ?Fever/Mild Pain (1-3) ? ? Enoxaparin Sodium ?30 mg ?10/18/21 09:00 ?10/18/21 08:50 ? Enoxaparin 30 Mg/0.3 Ml Syringe ?SUBCUT ? ?30 mg ? ?DAILY KIKO ? ?Administration Escitalopram Oxalate ?10 mg ?10/17/21 21:00 ?10/17/21 23:00 ? Escitalopram 10 Mg Tablet ?PO ? ?10 mg ? ?BEDTIME KIKO ? ?Administration Sodium Chloride ?1,000 mls @ 60 mls/hr ?10/17/21 20:03 ?10/17/21 21:06 ? Normal Saline 0.9% ?IV ? ?60 mls/hr ? ?CONT KIKO ? ?Administration Insulin Glargine ?40 unit ?05/27/22 09:00 ?10/18/21 08:27 ? Insulin Glargine 100 Unit/Ml 3ml Pen ?SUBCUT ? ?Not Given ? ?DAILY KIKO ? ? Insulin Human Lispro ?0 unit ?10/17/21 21:00 ?10/18/21 08:26 ? Insulin Lispro 100 Unit/Ml 3ml Vial ?SUBCUT ? ?Not Given ? ?ACHS KIKO ?Protocol ? ? Levothyroxine Sodium ?100 mcg ?10/18/21 09:00 ?10/18/21 08:50 ? Levothyroxine 100 Mcg Tablet ?PO ? ?100 mcg ? ?DAILY KIKO ? ?Administration Trazodone HCl ?50 mg ?10/17/21 21:00 ?10/17/21 23:00 ? Trazodone 50 Mg Tablet ?PO ? ?50 mg ? ?BEDTIME KIKO ? ?Administration Exam Vital Signs (past 8 hours): - ? 10/18/21 05:30 Temperature 97.7 F Pulse Rate 122 H Respiratory Rate 18 Blood Pressure 92/64 Pulse Oximetry 99 Oxygen Delivery Method? Room Air? Oxygen Flow Rate? 0 ? Objective Labs Result Diagrams: 10/17/21 13:59? 10/18/21 06:28? Labs: Laboratory Results - last 24 hr ? 10/17/21 10/17/21 10/17/21 ? 13:59 13:59 13:59 WBC ?6.4 ? ? RBC ?4.44 ? ? Hgb ?12.0 ? ? Hct ?36.8 ? ? MCV ?82.8 ? ? MCH ?27.0 ? ? MCHC ?32.6 ? ? RDW ?16.6 H ? ? Plt Count ?218 ? ? Neut % (Auto) ?73.8 ? ? Lymph % (Auto) ?15.4 L ? ? Prentiss % (Auto) ?7.0 ? ? Eos % (Auto) ?2.9 ? ? Baso % (Auto) ?0.9 ? ? Neut # (Auto) ?4800 ? ? Lymph # (Auto) ?1000 L ? ? Prentiss # (Auto) ?500 ? ? Eos # (Auto) ?200 ? ? Baso # (Auto) ?100 ? ? Sodium ? ?135 L ? Potassium ? ?5.4 H ? Chloride ? ?109 H ? Carbon Dioxide ? ?16 L ? BUN ? ?79 H ? Creatinine ? ?1.67 H ? Estimated GFR ? ?30 L ? BUN/Creatinine Ratio ? ?47.3 H ? Glucose ? ?172 H ? Lactate ? ? ?1.2 Calcium ? ?9.1 ? Total Bilirubin ? ?0.9 ? ASTB ? ?40 H ? ALT ? ?27 ? Alkaline Phosphatase ? ?123 ? Total Creatine Kinase ? ? ? CK-MB (CK-2) ? ? ? CK-MB (CK-2) Rel Index ? ? ? Troponin I ? ? ? NT-Pro-B Natriuret Pep ? ? ? Total Protein ? ?7.2 ? Albumin ? ?3.8 ? Globulin ? ?3.4 ? Albumin/Globulin Ratio ? ?1.1 ? Lipase ? ?32 ? SARS-CoV-2 (PCR) ? 10/17/21 10/17/21 10/17/21 ? 13:59 15:30 16:00 WBC ? ? ? RBC ? ? ? Hgb ? ? ? Hct ? ? ? MCV ? ? ? MCH ? ? ? MCHC ? ? ? RDW ?B ? ? Plt Count ? ? ? Neut % (Auto) ? ? ? Lymph % (Auto) ? ? ? Prentiss % (Auto) ? ? ? Eos % (Auto) ? ? ? Baso % (Auto) ? ? ? Neut # (Auto) ? ? ? Lymph # (Auto) ? ? ? Prentiss # (Auto) ? ? ? Eos # (Auto) ? ? ? Baso # (Auto) ? ? ? D Sodium ? ? ? Potassium ? ? ? Chloride ? ? ? Carbon Dioxide ? ? ? BUN ? ? ? Creatinine ? ? ? Estimated GFR ? ? ? BUN/Creatinine Ratio ? ? ? Glucose ? ? ? Lactate ? ? ? Calcium ? ? ? Total Bilirubin ? ? ? AST ? ? ? ALT ? ? ? Alkaline Phosphatase ? ? ? Total Creatine Kinase ?66 ? ? CK-MB (CK-2) ?TNP ? ? CK-MB (CK-2) Rel Index ?TNP ? ? Troponin I ?0.043 H ?0.044 H ? NT-Pro-B Natriuret Pep ?7940 H ? ? Total Protein ? ? ? Albumin ? ? ? Globulin ? ? ? Albumin/Globulin Ratio ? ? ? Lipase ? ? ? SARS-CoV-2 (PCR) ? ? ?Negative ? 10/18/21 10/18/21 ? 06:28 06:28 WBC ? ? RBC ? ? Hgb ?B ? Hct ? ? MCV ? ? MCH ? ? MCHC ? ? RDW ? ? Plt Count ? ? Neut % (Auto) ? ? Lymph % (Auto) ? ? Prentiss % (Auto) ? ? Eos % (Auto) ? ? Baso % (Auto) ? ? Neut # (Auto) ? ? Lymph # (Auto) ? ? Prentiss # (Auto) ? ? Eos # (Auto) ? ? Baso # (Auto) ? ? Sodium ? ?136 L Potassium ? ?4.8 Chloride ? ?111 H Carbon Dioxide ? ?17 L BUN ? ?73 H Creatinine ? ?1.57 H Estimated GFR ? ?33 L BUN/Creatinine Ratio ? ?46.5 H Glucose ? ?83 Lactate ? ? Calcium ? ?8.9 Total Bilirubin ? ? AST ? ? ALT ? ? Alkaline Phosphatase ? ? Total Creatine Kinase ?65 ? CK-MB (CK-2) ?TNP ? CK-MB (CK-2) Rel Index ?TNP ? Troponin I ?0.043 H ? NT-Pro-B Natriuret Pep ? ? Total Protein ? ? Albumin ? ? Globulin ? ? Albumin/Globulin Ratio ? ? Lipase ? ? SARS-CoV-2 (PCR) ? ? Assessment & Plan Assessment: Afib with RVR EF 15-20%, moderate RV dysfunction, moder to severe TR CHF DAHIANA Hypotension Dementia Delirium Discussion: treatment of patient's Afib with RVR and CHF is limited by hypotension. Plan: NEURO: -- PT/OT RESP: -- On room air? -- Encourage IS CVS: # Acute on chronic CHF exacerbation? -- diurese as tolerated # Hypotension -- start Levophed if MAP < 65 # A. fib w/ RVR -- Currently hypotensive and not a candidate for diltiazem or B mary -- Amiodarone drip held last night because of hypotension --will give another dose of digoxine 125 mcg IVP nowto see if we can control HR better --if HR still not controlled then will consider restart Amio dip --consider transfer to another hospital for FITO directed DCCV (per computational theory scientist's recommendation) if patient remains in Afib with RVR and family wants to pursue aggressive management : # DAHIANA on CKD -- diurese as tolerated -- if BP cannot tolerate diurese with lasix IV, consider lasix drip --monitor and correct any electrolyte abnormalities GI: # Abdomina pain -- Secondary to functional gastritis vs nephrotlithiasis -- Pain control? -- Start bowel regimen to seek 1-2 BM daily ENDO: -- Goal BS < 180 Goals of Care: Pt. is currently DNR/DNI. Given patient's multiple comorb idities including severe cardiomyopathy, valvular heart disease, Renal failure, dementia, and delirium and the fact that management of patient's CHF and Afib with RVR is so far limited by her hypotension comfort care is a reasonable option at this point. Family medicine attending to have goals of care discussion with family. If family wishes to pursue aggressive care, then plan to place PICC line to start Levophed drip (for BP support for more aggressive diuresis and heart rate control) and make preparations for transfer to another hospital that has capabilitis for FITO guided DCCV. CCT 50 min Time Spent With Patient Critical Care time: I spent a total of [] minutes of critical care time on this patient's care today ; this time is exclusive of procedural time.
--- NOTE | 2021-10-19 09:36 | PT-IP ANOTE ---
checked with nurse and pt continues to be have low BP and not tolerating meds well. ECHO result of EF of 15-20%. pt remains not appropriate for PT. PT eval on hold.
[2021-10-19 10:38] LABS: BUN Creatinine Ratio 44.9 (6-22); Blood Urea Nitrogen 75 mg/dL (7-17); Calcium 9.1 mg/dL (8.4-10.2); Carbon Dioxide 16 mmol/L (22-32); Chloride 109 mmol/L (98-107); Estimated Glomerular Filt Rate 30 mL/min (>60); Glucose 102 mg/dL (80-110); HEMOLYSIS < 15 (0-50); Magnesium 2.6 mg/dL (1.6-2.3); Sodium 134 mmol/L (137-145)
[2021-10-19] MEDS: LEVOTHYROXINE 100 MCG TABLET PO (10:55)
[2021-10-19] MEDS: DIGOXIN 500 MCG/2 ML AMPUL 125 MCG IV (10:56)
[2021-10-19 11:05] LABS: Hematocrit 38.5 % (36-46); Hemoglobin 12.5 g/dL (12.0-16.0); Mean Corpuscular HGB Conc 32.4 % (30-36); Mean Corpuscular Volume 83.4 fL (80-100); Platelet Count 230 X10^3/uL (150-400); Red Blood Cell Count 4.61 X10^6/uL (4.0-5.2); Red Cell Distribution Width 16.4 % (11.6-14.8); White Blood Cell Count 6.7 X10^3/uL (4.5-11.0)
--- NOTE | 2021-10-19 11:05 | PT.IIE ---
Current Diagnoses Acute systolic (congestive) heart failure (10/17/21) Acute kidney failure, unspecified (10/17/21) Tachycardia, unspecified (10/17/21) Surgical History (Last Reviewed 10/17/21 @ 14:53 by Belen Anton DO) Anesthesia History of partial surgical removal of colon (06/10/16) Status post dilation and curettage Medical History (Last Reviewed 10/17/21 @ 14:53 by Belen Anton DO) Atrial fibrillation (09/20/10) Bilateral shoulder pain Bipolar disorder Bradycardia Cardiomyopathy Chronic diarrhea (06/10/16) Cognitive decline Controlled type 2 diabetes mellitus (09/20/10) Essential hypertension (09/20/10) Fatigue Head contusion History of Graves' disease History of placenta previa Irritable bowel syndrome Minor head injury without loss of consciousness Neuropathy of both feet Renal artery stenosis (09/20/10) Retinal scar Rheumatoid arthritis Right leg pain Sprain of left shoulder Stye Systolic congestive heart failure (09/20/10) Thyroid nodule Vision disorder Weakness Physical Therapy Inpatient Evaluation/Re-Eval M1 PT/OT-IP Prior Functional Status Start: 10/19/21 13:11 Freq: NEEDED Status: Active Protocol: Document 10/19/21 11:05 AB (Rec: 10/19/21 14:01 AB [id number]) Medical Review Prior Functional Status Medical History Reviewed Yes Communication able to answer questions Mobility and Gait spouse in room and provided more information stated that pt is able to do bed mobility, transfers and ambulates using a fWW but spouse provided SBA if needed; able to ambulate from the house to the chair otherwise uses a manual w/c for outdoor mobility Activities of Daily Living and IADL's pt's daughter assists pt with shower needs Social History Household Members spouse Living Arrangements Mobile home Number of Floors (Floors) One Floor Number of Stairs To Enter/Railing? 4 steps L rail ascending to enter Home Environment Standard Height Toilet,Tub/ Shower Home Equipment Front Wheel Walker,Manual Wheelchair,Shower Seat without Backrest,Hand Held Shower, Grab Bars Near Toilet,Grab Bars In Shower Additional Social History Comment pt has an RV tub shower and has to step up a step to get into the tube M2 PT-IP Current Condition Start: 10/19/21 13:11 Freq: NEEDED Status: Active Protocol: Document 10/19/21 11:05 AB (Rec: 10/19/21 14:01 AB [id number]) Physical Therapy Current Condition Current Condition Evaluation Date 10/19/21 Treatment Diagnosis A-fib; CHF; difficulty in walking Onset Date 10/17/21 M3 PT-IP Subjective Start: 10/19/21 13:11 Freq: NEEDED Status: Active Protocol: Document 10/19/21 11:05 AB (Rec: 10/19/21 14:01 AB [email or web address]) Subjective Physical Therapy Visit Type Type Initial Evaluation Visit Start Time 11:05 Visit Stop Time 11:40 Total Visit Minutes 35 Notes checked with nurse this morning and stated that pt is still not appropriate for PT. nurse informed PT after a few hours that pt can be seen by PT. stated that Dr. Woodruff saw the pt this morning and pt is planning to go home. Nurse stated that pt's HR is still on the high side but does not go up too much. Number of EVENTS ASSISTANT Visits 0 M4 PT-IP Mobility and Gait Start: 10/19/21 13:11 Freq: NEEDED Status: Active Protocol: Document 10/19/21 11:05 AB (Rec: 10/19/21 14:01 [email or web address]) PT-Bed Mobility Assessment Supine to Sit Supine to Sit Maximum Assistance PT-Transfer Assessment Sit to and From Stand Sit to and from Stand Maximum Assistance,1 Person Assistance Equipment Transfer Assistive Device Gait Belt,Front Wheeled Walker Orthotic/Prosthetic Devices or Brace: No Transfers Transfer Destination Chair Transfer Technique Stand Step Pivot Transfer Ability Level of Assist Maximum Assistance,1 Person Assistance,Use of Upper Extremities Comments Mobility Comments BP: 99/56 HR: 113 in supine. completed bed mobility supine to sit max A and max cues with HOB elevated. able to sit on EOB CGA to min A. pt has decrease activity tolerance and stated that she cannot do anymore activity. BP in sittin/60. pt agreed to sit up on the chair for lunch. completed sit to stand max A and cues and step transfer to the chair max A and max cues. positioned pt on the chair. BP checked: 97/ 54. O2 sat stable: 97% HR varies: 113-118 bpm. call light and table placed within reach chair alarm on. PT-Balance Assessment Sitting Balance and Reactions Static Sitting Balance Ability Good Dynamic Sitting Balance Ability Fair Standing Balance and Reactions Static Standing Balance Ability Poor Dynamic Standing Balance Ability Poor Device Used FWW M5 PT-IP Objective Assessments Start: 10/19/21 13:11 Freq: NEEDED Status: Active Protocol: Document 10/19/21 11:05 AB (Rec: 10/19/21 14:01 AB [email or web address]) Orientation Orientation/Cognition Level of Alertness Confusional State Orientation Name Language Function Ability Hard of Hearing Safety Awareness Decreased Safety Awareness Memory Description Short Term Impaired,Deskidding Machine Operator Impaired Gross Range of Motion Lower Extremity ROM Assessment Within Functional Limits Strength Lower Extremity Strength Assessment Bilaterally Impaired Hip 3+/5 Knee 3+/5 Sensation Assessment Sensation Gross Sensation WNL Muscle Tone Muscle Tone WNL Yes M6 PT-IP Treatment Start: 10/19/21 13:11 Freq: NEEDED Status: Active Protocol: Document 10/19/21 11:05 AB (Rec: 10/19/21 14:01 AB [email or web address]) Physical Therapy Treatment Education Education Provided Safety M7 PT-IP Assessment and Plan Start: 10/19/21 13:11 Freq: NEEDED Status: Active Protocol: Document 10/19/21 11:05 AB (Rec: 10/19/21 14:01 AB [email or web address]) PT Summary Assessment and Plan Potential Rehabilitation Potential Fair Status of Condition at Evaluation Evolving Summary Impairments ROM,Strength,Balance, Coordination,Cognition,Bed Mobility,Transfers,Gait, Activity Tolerance Assessment Summary pt requiring max A with mobility using FWW and unable to ambulate at this time. pt has decrease activity tolerance affecting mobility. pt has a complex medical condition with only 15-20% EF of L ventricle. PT intervention limited but family wants to take pt home and PT assessment completed for mobility level and safe d/ c plan. pt will require 24/7 assist at home and homehealth services. PT will continue to assess progress and prevent further deconditioning. Goals Bed Mobility Goal Contact Guard Assistance Transfer Goal Contact Guard Assistance,Front Wheeled Walker Gait Goal Contact Guard Assistance,Front Wheel Walker Gait Distance 50 Days to Meet Goals 10 Frequency of Treatment Frequency Of Treatment Once a Day Treatment Plan Physical Therapy Treatment Plan Bed Mobility Training,Transfer Training,Gait Training, Therapeutic Exercise,Balance Retraining,Post Op Education, Discharge Planning,Hot or Cold Pack,Neuromuscular Re-ed, Coordination Retraining,Manual Therapy Precautions Other Precautions HR; BP Recommendations To Nursing Amount of Assist Needed 1 Person Assist Discharge Recommendations PT Discharge Recommendations Home with 24/7 Assist Available,Home Health,SNF Rehab,Home vs SNF Transportation Needs at Discharge Wheelchair/Cabulance,Stretcher /Ambulance
--- NOTE | 2021-10-19 11:54 | PM.PN.1 ---
Subjective Subjective Date Patient Seen: 10/19/21 Time Patient Seen: 10:00 Interval history: Rather active night feeling restful this morning. generally deconditioned and weak. did require some amiodarone drip overnight but is currently off and rate holding steady in 110s. diuresing gently. at bedside. Exam Vital Signs (past 8 hours): - 10/19/21 04:00 10/19/21 06:00 10/19/21 08:00 Temperature 97.8 F 99.0 F Pulse Rate 105 H 113 H 83 Respiratory Rate 22 18 17 Blood Pressure 87/50 L 94/59 L 96/62 Pulse Oximetry 98 99 100 10/19/21 10:00 Temperature 97.9 F Pulse Rate 110 H Respiratory Rate 17 Blood Pressure 99/65 Pulse Oximetry 100 Oxygen Delivery Method Room Air Oxygen Flow Rate 0 Narrative Exam Narrative: dozing in bed with at bedside Const General: cooperative and disheveled Eyes General: appearance normal, both eyes and all related structures Resp Auscultation: clear to auscultation bilaterally Cardio Rate: tachycardic Heart Sounds: S1 normal and S2 normal GI Auscultation: normal bowel sounds Skin General: no rashes or lesions noted Extrem General: full ROM and pedal edema Psych Appearance: grossly normal Speech and Movement: speech and movement normal Objective Labs Result Diagrams: 10/19/21 10:14 10/19/21 09:55 Labs: Laboratory Results - last 24 hr 10/18/21 10/19/21 10/19/21 12:12 09:55 10:14 WBC 6.7 RBC 4.61 Hgb 12.5 Hct 38.5 MCV 83.4 MCH 27.0 MCHC 32.4 RDW 16.4 H Plt Count 230 Sodium 134 L Potassium 5.0 Chloride 109 H Carbon Dioxide 16 L BUN 75 H Creatinine 1.67 H Estimated GFR 30 L BUN/Creatinine Ratio 44.9 H Glucose 102 Calcium 9.1 Magnesium 2.6 H TSH 2.05 PFSH Medical History Atrial fibrillation (09/20/10) Bilateral shoulder pain Bipolar disorder Bradycardia Cardiomyopathy Chronic diarrhea (06/10/16) Cognitive decline Controlled type 2 diabetes mellitus (09/20/10) Essential hypertension (09/20/10) Fatigue Head contusion History of Graves' disease History of placenta previa Irritable bowel syndrome Minor head injury without loss of consciousness Neuropathy of both feet Renal artery stenosis (09/20/10) Retinal scar Rheumatoid arthritis Right leg pain Sprain of left shoulder Stye Systolic congestive heart failure (09/20/10) Thyroid nodule Vision disorder Weakness Surgical History Anesthesia History of hip replacement History of knee replacement History of partial surgical removal of colon (06/10/16) Status post dilation and curettage Social History details: She is living with her in a trailer. She is a [employer] household members: spouse Smoking Status: Former smoker alcohol intake: former Assessment & Plan Assessment & Plan narrative: #Sinus tachycardia less likely atrial flutter HR 110s now off amio drip. Appreciate cardiology and ICU input. Last EF 20% Patient's indicates she would not desire transport to [facility] cardiology. pacer with one wire in place seeing occasional spikes #Hypotension Can be hard to treat her hypotension with just regular fluids because of her congestive heart failure.? hold home antihypertensives May need pressure support again, still cleared to use if needed. #Acute kidney injury.? 2/2 hypotension and tachycardia.? Stable this morning electrolyte looks okay. #Acute metabolic encephalopathy.? Rough nights. Better with family at bedside. #Elevated cardiac enzymes.? Seems like some demand ischemia monitor #Acute on chronic systolic congestive heart failure.? Balancing diuresis vs BP, last EF 20%, lasix 40 iv yesterday and today Improved pulmonary exam today.? Will again discuss with family about next steps in care plan. She is coming to us from living in motor home with which pending PT eval I do not foresee as terrific discharge plan in current state. #Insulin dependent type 2 diabetes Patient's blood sugars are stable at this point, continue with insulin regimen encourge eating. #Hypothyroidism continue with thyroid replacement.? #Depression.? in setting of heart failure continue with her antidepressant Disposition: no longer requiring drip or pressor if she can continue for 24 hours she can drop ICU status. continuing to discuss goals of care with family. Diet: heart healthy carb controlled Time Spent With Patient Critical Care time: I spent a total of [] minutes of critical care time on this patient's care today; this time is exclusive of procedural time. Quality VTE Deep Vein Thrombosis/Pulmonary Embolism Present on Admission: No
[2021-10-19] MEDS: ACETAMINOPHEN 325 MG TABLET 650 MG PO (13:13)
--- NOTE | 2021-10-19 14:55 | PC.NURSE ---
AM shift Pt has been resting this am after very poor sleep overnight. Allowed to sleep in. Updated Spouse on POC and he is appreciative at grouped care. Pt is forgetful, pleasant at this time about care. As shift is progressing, increasingly agitated and frustration expressed, Why don't you care about this? They are forgetting about our children! Reassured Pt and spouse. Significant time spent with , planning on home set up, as Pt currently lives in RV Not tolerating amioderione gtt, BP remains low 90/50's. Discussed with Dr Paiz POC and Home medications not restarted during this stay. Order obtained for Seroquel as Pt continues to have issues with sleep and agitation. Notably worse in the afternoon, going into end of shift.
--- NOTE | 2021-10-19 15:22 | CM.IDA ---
DCP Assessment Patient is 81 y/o female who presents to with admitting dx of Abd pain, acute kidney failure, Tachycardia and acute Sysolic congestive heart failure. Patient has hx of Dementia, CVA, Hypertension, AFib and CHF. Patient is DNR/DNI. Patient's PCP is Dr. Castro, patient has [facility], [facility] insurance. Per Dr. Paiz, RN, and PT, patient is impacted by 15-20% EF of L ventricle and patient cannot manage climbing stairs or walking far. Dr. Paiz indicates ruling out SNF vs. Hospice. Per PT, there is concern that patient will not have strength to rehab in SNF setting. Per PT's conversation with , the mobile home patient and reside has 4 stairs. PT recommends that patient is in need of 24/7 care, patient is able to transfer but too weak for any further movement. It was reported that patient has daughters that can be supports upon d/c. This PACKAGING COORDINATOR was not able to meet with and patient today. It is recommended that DCP have further in depth conversation with regarding appropriate POC upon d/c for patient. Plan: f/u with provider, PT/OT, f/u with spouse to determine appropriate POC upon d/c when patient is medically clear. JEMAL Koo Discharge Planning/Care Management CM Discharge Assessment Start: 10/19/21 15:15 Freq: Status: Active Protocol: Document 10/19/21 15:15 LN (Rec: 10/19/21 15:22 LN [id number]) Discharge Planning Assessment Assigned Lease Attendant JEMAL Sarah DPOA/Assigned Designee Name Rina William Contact Information [phone] Advance Directives? Yes Advance Directives on File Yes History Provided By Medical Record Has Patient been admitted in last 30 No days? Prior Living Arrangements Mobile home Household Members spouse Type of transporation used prior to Relies on Others admit Independent with ADL's No Is patient alert and oriented? No Needs Assistance With Bathing DME Already Rented / Owned Bath Bench,Wheelchair,FWW / Walker Comment FWW. 4WW when outside with spouse in the yard. Uses w/c for outings. Comment SNF vs. Hospice Transportation Arrangement Pending d/c plan Additional Comment further PT/OT evluations needed Please Provide Date Initial DC 10/19/21 Assessment Was Performed
[2021-10-19] MEDS: MEMANTINE HCL 5 MG TABLET PO (19:55)
[2021-10-19] MEDS: MELATONIN 3 MG TABLET 6 MG PO (20:34)
[2021-10-19] MEDS: QUETIAPINE 25 MG TABLET 12.5 MG PO (20:35)
[2021-10-19] MEDS: TRAZODONE 50 MG TABLET PO (20:35)
[2021-10-19] MEDS: ESCITALOPRAM 10 MG TABLET PO (20:35)
[2021-10-20] VITALS: PULSE 119; RESP 23; O2SAT 97
--- NOTE | 2021-10-20 01:32 | PC.NURSE ---
Addendum entered by Izabella Holland R.N. 10/20/21 06:45: Patient slept for long periods and this am stating she needs her clothes so she can get ready for work. Daughter, Rina, at bedside and supportive of patient. Patient C/O headache and requesting Acetaminophen. Same given. Patient currently OOB in chair. Original Note: Patient extremely agitated as [id number]. Patient pulling off telemetry leads and wanting to ambulate around room. Patient accusing daughter and some other people of stealing from her. Patient agreed to replace telemetry cardiac leads after explanation given that MD wanted us to monitor her heart and take pictures of her rhythm. Patient agreed to take hs medication, but declined finger stick for blood sugar and sliding scale. Patient sleeping at 2200. Daughter reports that patient had not slept well for two to three nights.
[2021-10-20 04:00] VITALS: BP 92/71; PULSE 121; RESP 26; TEMP 36.5; O2SAT 98
[2021-10-20] MEDS: ACETAMINOPHEN 325 MG TABLET 650 MG PO ×2 (06:39→23:43)
[2021-10-20] MEDS: QUETIAPINE 25 MG TABLET 12.5 MG PO ×2 (07:31→20:27)
[2021-10-20 08:00] VITALS: BP 93/60; PULSE 124; RESP 23; TEMP 36.5; O2SAT 98
[2021-10-20 08:03] LABS: Hematocrit 38.6 % (36-46); Hemoglobin 12.6 g/dL (12.0-16.0); Mean Corpuscular HGB Conc 32.6 % (30-36); Mean Corpuscular Hemoglobin 27.2 PG (26-34); Mean Corpuscular Volume 83.3 fL (80-100); Platelet Count 232 X10^3/uL (150-400); Red Blood Cell Count 4.64 X10^6/uL (4.0-5.2); Red Cell Distribution Width 17.2 % (11.6-14.8); White Blood Cell Count 7.8 X10^3/uL (4.5-11.0)
[2021-10-20] MEDS: SPIRONOLACTONE 25 MG TABLET PO (08:13)
[2021-10-20 08:14] LABS: BUN Creatinine Ratio 44.9 (6-22); Blood Urea Nitrogen 71 mg/dL (7-17); Calcium 9.2 mg/dL (8.4-10.2); Carbon Dioxide 16 mmol/L (22-32); Chloride 109 mmol/L (98-107); Estimated Glomerular Filt Rate 32 mL/min (>60); Glucose 105 mg/dL (80-110); HEMOLYSIS < 15 (0-50); Magnesium 2.6 mg/dL (1.6-2.3); Potassium 4.8 mmol/L (3.4-5.1); Sodium 134 mmol/L (137-145)
[2021-10-20] MEDS: SODIUM CHLORIDE 0.9% FLUSH 10 ML IV (08:14)
[2021-10-20] MEDS: LEVOTHYROXINE 100 MCG TABLET PO (09:00)
--- NOTE | 2021-10-20 10:40 | P.PN_ITS ---
Subjective Subjective Date Patient Seen: 10/20/21 Time Patient Seen: 09:40 Interval history: CC: I'm sleepy Had uneventful night Pt remains with stable evidently sinus tachycardia in the 120s not eating much is at bedside he is eager to find a way to get her home she is not a good patient at rehab per him and he believes she would really rather be at home daughter coming out soon also We discussed discharge options and my opinion that she does meet hospice status and if goal is to take her home that may be a good way to achieve that CM continuing conversation Exam Vital Signs (past 8 hours): - 10/20/21 04:00 10/20/21 08:00 Temperature 97.7 F 97.7 F Pulse Rate 121 H 124 H Respiratory Rate 26 H 23 Blood Pressure 92/71 93/60 Pulse Oximetry 98 98 Oxygen Delivery Method Room Air Oxygen Flow Rate 0 Narrative Exam Narrative: snoozing in bed HENMT Head: normal to inspection Eyes General: appearance normal, both eyes and all related structures Resp Auscultation: clear to auscultation bilaterally Cardio Rate: tachycardic Rhythm: regular rhythm Heart Sounds: S1 normal and S2 normal GI Palpation: soft Auscultation: normal bowel sounds Neuro General: patient alert, patient awake, moves all extremities and CN's II-XI intact bilaterally Extrem General: normal to inspection, full ROM and no pedal edema Psych Appearance: grossly normal Speech and Movement: speech and movement normal Objective Labs Result Diagrams: 10/20/21 07:58 10/20/21 07:58 Labs: Laboratory Results - last 24 hr 10/19/21 10/19/21 10/20/21 09:55 10:14 07:58 WBC 6.7 RBC 4.61 Hgb 12.5 Hct 38.5 MCV 83.4 MCH 27.0 MCHC 32.4 RDW 16.4 H Plt Count 230 Sodium 134 L 134 L Potassium 5.0 4.8 Chloride 109 H 109 H Carbon Dioxide 16 L 16 L BUN 75 H 71 H Creatinine 1.67 H 1.58 H Estimated GFR 30 L 32 L BUN/Creatinine Ratio 44.9 H 44.9 H Glucose 102 105 Calcium 9.1 9.2 Magnesium 2.6 H 2.6 H 10/20/21 07:58 WBC 7.8 RBC 4.64 Hgb 12.6 Hct 38.6 MCV 83.3 MCH 27.2 MCHC 32.6 RDW 17.2 H Plt Count 232 Sodium Potassium Chloride Carbon Dioxide BUN Creatinine Estimated GFR BUN/Creatinine Ratio Glucose Calcium Magnesium PFSH Medical History Atrial fibrillation (09/20/10) Bilateral shoulder pain Bipolar disorder Bradycardia Cardiomyopathy Chronic diarrhea (06/10/16) Cognitive decline Controlled type 2 diabetes mellitus (09/20/10) Essential hypertension (09/20/10) Fatigue Head contusion History of Graves' disease History of placenta previa Irritable bowel syndrome Minor head injury without loss of consciousness Neuropathy of both feet Renal artery stenosis (09/20/10) Retinal scar Rheumatoid arthritis Right leg pain Sprain of left shoulder Stye Systolic congestive heart failure (09/20/10) Thyroid nodule Vision disorder Weakness Surgical History Anesthesia History of hip replacement History of knee replacement History of partial surgical removal of colon (06/10/16) Status post dilation and curettage Social History details: She is living with her in a trailer. She is a [employer] household members: spouse Smoking Status: Former smoker alcohol intake: former Assessment & Plan Assessment & Plan narrative: #Sinus tachycardia HR 110s-120s off amio drip for 24hours. Appreciate cardiology and ICU input. Last EF 20% this seems to be physiological. Patient's indicates she would not desire transport to [facility] cardiology. pacer with one wire in place. #Hypotension Stable. Can be hard to treat her hypotension with just regular fluids because of her congestive heart failure.? hold home antihypertensives encourage PO intake. May need pressure support again, still cleared to use if needed. #Acute kidney injury.? 2/2 hypotension and tachycardia.? Stable this morning electrolyte looks okay. #Acute metabolic encephalopathy.? Rough nights. Better with family at bedside. seroquel qhs. #Elevated cardiac enzymes.? Seems like some initial demand ischemia monitor #Acute on chronic systolic congestive heart failure.? Balancing diuresis vs BP, last EF 20%, has been getting some iv lasix Improved pulmonary exam today.? Will again discuss with family about next steps in care plan.? She is coming to us from living in motor home with which I do not foresee as terrific discharge plan in current state.? #Insulin dependent type 2 diabetes Patient's blood sugars are stable at this point, continue with insulin regimen encourage eating. #Hypothyroidism continue with thyroid replacement.? #Depression.? in setting of heart failure continue with home antidepressant Disposition: no longer requiring drip or pressor nearing dischargeable status. continuing to discuss goals of care with family appreciate CM input. Diet: heart healthy carb controlled Code: DNR MDM: Time Spent With Patient Critical Care time: I spent a total of [] minutes of critical care time on this patient's care today; this time is exclusive of procedural time. Quality VTE Deep Vein Thrombosis/Pulmonary Embolism Present on Admission: No
--- NOTE | 2021-10-20 11:23 | CM.DPC ---
Addendum entered by Mikaela Kirk R.N. 10/20/21 15:15: Spoke to patient's spouse, Ryan. Asked him if this rehabilitation case coordinator can have his daughter's name and phone number, and if it would be ok to contact. He stated that his daughter's name is Rina. Her number is: [phone]. He gave permission to contact, since patient has dementia. Called patient's daughter, and her stated she is sleeping, she is planning on coming again and spending the night. Gave him this [place] transit planner's phone number, so discharge planning can be discussed. Spouse is still thinking about home versus half-way. She did work with P.T, and spouse stated, she did eat a little something. Will plan on reaching out to daughter as well. Addendum entered by Mikaela Kirk R.N. 10/20/21 13:20: Met with spouse in patient's room, patient still sleeping. He asked about the possibility of patient going to rehab for a couple of weeks. Let spouse know that patient needs to participate with therapy for her insurance to cover. She has worked with P.T. once. Explained the other barrier, are behaviors, for if patient notes increased confusion and agitation, most facilities will not be able to manage. Gave him the Medicare Choice List. Did encourage him to make three choices of rehab. He indicated, he just wanted to pick [facility]. Let him know that the only other choice is home. Did mention the possibility of patient going to [facility] with hospice services, but would have to pay at least $400.00 a day with a significant down payment. He will discuss with daughters. Did go ahead and send information to [facility], and left Daria a message, who is in admissions today. Spouse did indicate that patient has been to [facility] before. At this time, patient is not eating, is sleeping. Will see how she does today. Hospice has received referral as well. Plan will be most likely home, but will have [facility] review. Original Note: DCP Cont: Spoke to Dr. Paiz, he was planning on having conversation with spouse, Ryan, about hospice. Let him know that this [place] transit planner will follow up and have conversation as well. Confirmed that patient and spouse reside in the [facility] outside of [place] in a trailer park. Met with , Ryan. Asked him about discharge planning. Patient was asleep in her bed. Asked him if Dr. Paiz had mentioned hospice, and he stated, he did. Spouse is in favor of hospice. Did discuss with spouse what hospice services entail. Let him know that this service is covered under Medicare, what it covers. Asked spouse if he has room for hospital bed in his trailer, stated, he does not. Asked him if there is a possibility that patient can stay with daughter, and he stated, that may be an option. Patient is supposed to work with P.T. today, for there are 4 stairs to get into the house. [facility] Faxed her over the referral, and she will be the one doing the info visit. Asked patient if he has a physical address, stated, it[place], and does not have a physical address. He will need to provide this if equipment is to be delivered. It is still uncertain, if patient is able to stay with daughter, have not seen daughter today, but was informed that she was at bedside through the night. P: DCP to continue to follow. Plan is home with hospice, will follow up with P.T. as well. Mikaela Kirk RN/Mandrel Puller
[2021-10-20 11:30] VITALS: O2SAT 98
[2021-10-20 12:00] VITALS: BP 94/60; PULSE 121; RESP 24; TEMP 36; O2SAT 98
--- NOTE | 2021-10-20 13:55 | PT.IPTN ---
Current Diagnoses Acute systolic (congestive) heart failure (10/17/21) Acute kidney failure, unspecified (10/17/21) Tachycardia, unspecified (10/17/21) Physical Therapy Treatment Note M2 PT-IP Current Condition Start: 10/19/21 13:11 Freq: NEEDED Status: Active Protocol: Document 10/19/21 11:05 AB (Rec: 10/19/21 14:01 AB [id number]) Physical Therapy Current Condition Current Condition Evaluation Date 10/19/21 Treatment Diagnosis A-fib; CHF; difficulty in walking Onset Date 10/17/21 M3 PT-IP Subjective Start: 10/19/21 13:11 Freq: NEEDED Status: Active Protocol: Document 10/20/21 13:55 AW (Rec: 10/20/21 14:54 AW [id number]) Subjective Physical Therapy Visit Type Type Treatment Note Visit Start Time 13:30 Visit Stop Time 13:55 Total Visit Minutes 25 Number of DOWEL INSERTING MACHINE OPERATOR Visits 0 Physical Therapy Visit Comments Patient Comments Pt nods in agreement to do PT, is able to communicate about pain. Therapy Pain Assessment Pain When Pain Assessed During Mobility Pain Present Pain Present Pain Reported M4 PT-IP Mobility and Gait Start: 10/19/21 13:11 Freq: NEEDED Status: Active Protocol: Document 10/20/21 13:55 AW (Rec: 10/20/21 14:54 AW [id number]) PT-Bed Mobility Assessment Supine to Sit Supine to Sit Maximum Assistance Sit to Supine Sit to Supine Maximum Assistance,2 Person Assistance Scooting Scooting to Edge of Bed Maximum Assistance PT-Transfer Assessment Sit to and From Stand Sit to and from Stand Moderate Assistance,Maximum Assistance,1 Person Assistance Equipment Transfer Assistive Device Gait Belt,Front Wheeled Walker Orthotic/Prosthetic Devices or Brace: No Comments Mobility Comments Pt was in right sidelying as PT arrived. BP 83/58 HR 100. Pt was lethargic but agreed to sit up. She completed SL to sit max A and max cues. She sat EOB using bed cane with left hand and right hand steady on the mattress. Sitting BP was 96/60 HR 85. Pt agreed to stand, needing mod to max A to stand with FWW. She was shaky immediately and needed to sit. On second attempt, pt was able to maintain standing 5 seconds before needing to sit. PT instructed pt in standing weight shifting prior to third attempt. Pt stood max A and with the intention of shifting weight but could not maintain standing long enough to try. On final attempt, pt stood ~10 seconds but could not shift weight in preparation for transfer. BP was 103/66 HR 115 -120. RN assisted with return to supine. Pt was repositioned and left with call light in reach. Pt was requesting food from RN as PT departed. Gait Assessment Comments Gait Comments Unable at this time. PT-Balance Assessment Sitting Balance and Reactions Static Sitting Balance Ability Good Dynamic Sitting Balance Ability Fair Standing Balance and Reactions Static Standing Balance Ability Poor Dynamic Standing Balance Ability Poor Device Used FWW M5 PT-IP Objective Assessments Start: 10/19/21 13:11 Freq: NEEDED Status: Active Protocol: Document 10/19/21 11:05 AB (Rec: 10/19/21 14:01 AB [id number]) Orientation Orientation/Cognition Level of Alertness Confusional State Orientation Name Language Function Ability Hard of Hearing Safety Awareness Decreased Safety Awareness Memory Description Short Term Impaired,Character Actor Impaired Gross Range of Motion Lower Extremity ROM Assessment Within Functional Limits Strength Lower Extremity Strength Assessment Bilaterally Impaired Hip 3+/5 Knee 3+/5 Sensation Assessment Sensation Gross Sensation WNL Muscle Tone Muscle Tone WNL Yes M6 PT-IP Treatment Start: 10/19/21 13:11 Freq: NEEDED Status: Active Protocol: Document 10/20/21 13:55 AW (Rec: 10/20/21 14:54 AW [id number]) Physical Therapy Treatment Education Education Provided Safety M7 PT-IP Assessment and Plan Start: 10/19/21 13:11 Freq: NEEDED Status: Active Protocol: Document 10/20/21 13:55 AW (Rec: 10/20/21 14:54 AW [id number]) PT Summary Assessment and Plan Summary Impairments ROM,Strength,Balance, Coordination,Cognition,Bed Mobility,Transfers,Gait, Activity Tolerance Assessment Summary Pt continues to require max assist with bed mobility and sit to stand. Today, she was unable to shift weight in preparation for transfer and requested return to bed after sit to stand x 4. Pt's spouse states she was able to get up and down stairs 4 days ago. Given significant decline from baseline mobility, pt will require 24/7 assist with all mobility at discharge. Depending on goals of care and pt's ability to participate with therapy, pt would benefit from home health services vs SNF rehab. Goals Bed Mobility Goal Contact Guard Assistance Transfer Goal Contact Guard Assistance,Front Wheeled Walker Gait Goal Contact Guard Assistance,Front Wheel Walker Gait Distance 50 Days to Meet Goals 10 Frequency of Treatment Frequency Of Treatment Once a Day Treatment Plan Physical Therapy Treatment Plan Bed Mobility Training,Transfer Training,Gait Training, Therapeutic Exercise,Balance Retraining,Post Op Education, Discharge Planning,Hot or Cold Pack,Neuromuscular Re-ed, Coordination Retraining,Manual Therapy Precautions Other Precautions HR; BP Recommendations To Nursing Amount of Assist Needed Independent Discharge Recommendations PT Discharge Recommendations Home with 24/ Assist Available,Home Health,SNF Rehab,Home vs SNF Transportation Needs at Discharge Wheelchair/Cabulance,Stretcher /Ambulance
--- NOTE | 2021-10-20 17:15 | PC.NURSE ---
1715 Placed pure wick, wall suction set to 40, pt having a difficult time getting oob to bedside commode, became very SOB, bed low and locked, call light within reach, will continue to treat and monitor.
[2021-10-20 20:00] VITALS: BP 98/55; PULSE 100; RESP 18; TEMP 36.2; O2SAT 96
[2021-10-20] MEDS: TRAZODONE 50 MG TABLET PO (20:27)
[2021-10-21 04:00] VITALS: PULSE 99; O2SAT 94
--- NOTE | 2021-10-21 06:11 | PC.NURSE ---
Shift Note-At beginning of shift patient was confused, has labile mood swings, resistant to care, removed telemetry, Dr Paiz notified by previous RN, ok to leave off, patient removed IV, and refused HS meds. At midnight she requested Tylenol for neck pain, Trazadone and Seroquel also given at that time which was effective for relaxation and sleep. Still on oximeter, SpO2 >95% on RA, HR irregular 80s-125.
[2021-10-21 08:05] VITALS: BP 114/67; PULSE 127; RESP 19; TEMP 36.7; O2SAT 96
[2021-10-21 08:11] LABS: Hematocrit 38.8 % (36-46); Hemoglobin 12.7 g/dL (12.0-16.0); Mean Corpuscular HGB Conc 32.6 % (30-36); Mean Corpuscular Volume 82.9 fL (80-100); Platelet Count 226 X10^3/uL (150-400); Red Blood Cell Count 4.68 X10^6/uL (4.0-5.2); White Blood Cell Count 6.4 X10^3/uL (4.5-11.0)
[2021-10-21 08:23] LABS: BUN Creatinine Ratio 46.8 (6-22); Blood Urea Nitrogen 66 mg/dL (7-17); Calcium 9.3 mg/dL (8.4-10.2); Carbon Dioxide 19 mmol/L (22-32); Chloride 110 mmol/L (98-107); Estimated Glomerular Filt Rate 37 mL/min (>60); Glucose 133 mg/dL (80-110); HEMOLYSIS < 15 (0-50); Magnesium 2.8 mg/dL (1.6-2.3); Potassium 4.8 mmol/L (3.4-5.1); Sodium 136 mmol/L (137-145)
[2021-10-21 08:24] VITALS: BMI 26.2
--- NOTE | 2021-10-21 08:58 | CM.DPC ---
Addendum entered by Mikaela Kirk R.N. 10/21/21 12:10: Spoke to Nen[facility] at [facility] She stated that they can do admission at patient's home tomorrow between [id number]. She did state that she needs patient's physical address. Nurse, Adri, was able to get physical address from spouse. Address is: [address], [place]. [facility] and gave them address. Spoke to patient's daughter, Rina. She plans to be in the home to assist patient into her RV. She is aware that hospice will arrive tomorrow. [facility]ed [facility] DC Summary from today, included physical address on cover sheet. Emailed admission change group with patient's physical address. Patient is discharged at this time, Dr. Paiz has been updated. Original Note: DCP Cont: Spoke to patient's spouse, who is currently in the room, is prepared to take her home. He was able to speak to hospice, had informational visit. Patient was sitting up in bed having her breakfast. Have not yet seen Dr. Paiz, will update him for discharge. P: DCP to continue to follow. Plan at this time is home with hospice. Mikaela Kirk RN/Home Health Care Case Manager
--- NOTE | 2021-10-21 10:18 | PM.DS.1 ---
History of Present Illness History of Present Illness Date Patient Seen: 10/21/21 Time Patient Seen: 09:30 Chief complaint: Abd pain for weeks Narrative: Pt remains stable off drips with stable tachycardia in the 110s. Goals of care discussions yesterday led to decision to go home with home hospice assistance which I certainly agree with. Labs remain stable she is more alert today recognizes me and did eat some breakfast. Still weak to get up and around but denies any pain. Discharge Providers Provider Date of admission: 10/17/21 17:16 Discharge Date: 10/21/21 Primary care physician: Live Castro MD Consults: 10/17/21 20:03 Consult to Discharge Planning Routine Comment: Consult to Physical Therapy Evaluate & Treat Comment: Physician Instructions: Evaluate and Treat Discharge provider: August Paiz MD Summary Hospital Course Discharge Diagnosis: #tachycardia #Hypotension #Acute kidney failure? #Acute metabolic encephalopathy #Elevated cardiac enzymes.? #Acute on chronic systolic congestive heart failure.? #Insulin dependent type 2 diabetes #Hypothyroidism #Major depression disorder Hospital Course: 81-year-old female with a past medical history of chronic kidney disease moderate cognitive impairment with fluctuation of memory with cerebrovascular accident history hypertension class 4 systolic congestive heart failure intermittent atrial fibrillation insulin-dependent diabetes presented to the emergency department with her and concerns of back and abdominal pain she said that that she fell about a month ago.? She has been having pain and discomfort since then which got worse over the last few days.? She was found to be in tachycardia and was admitted for managmeent. She has CHF with last EF 20%. Although she is DNR with extensive conversation family desired we try amiodarone and pressor drips prns so she was admitted to our ICU. Her tachycardia was kept under 120s with amiodarone for a day but she did not require more than momentary pressor support to keep MAP above 65. Appreciate ICU assistance in management. With some gentle diuresis and supportive care she was able to remain off amiodarone drip and her mental status improved with some sleep. We were able to have a goals of care discussion with family with the resolution that she would be more comfortable at home and they would like to initiate hospice care which I think is eminently reasonable given her tenuous cardiac status, deconditioning, and poor PO intake. Her labs remained stable and her kidney function improved. Status at Discharge Cognitive/behavioral status at discharge: calm Functional status at discharge: wheelchair bound Overall status at discharge: patient is not back to baseline Exam Vital Signs (past 8 hours): - 10/21/21 04:00 10/21/21 08:05 Temperature 98.1 F Pulse Rate 99 H 127 H Respiratory Rate 19 Blood Pressure 114/67 Pulse Oximetry 94 96 Oxygen Delivery Method Room Air Oxygen Flow Rate 0 Narrative Exam Narrative: calm laying in bed with at bedside Const General: cooperative and comfortable Eyes General: appearance normal, both eyes and all related structures Resp Auscultation: clear to auscultation bilaterally Cardio Rate: tachycardic GI Palpation: soft Auscultation: normal bowel sounds Neuro General: patient alert, patient awake, moves all extremities and CN's II-XI intact bilaterally Extrem General: full ROM and no pedal edema Psych Appearance: grossly normal Objective Labs Result Diagrams: 10/21/21 08:05 10/21/21 08:05 Labs: Laboratory Results - last 24 hr 10/21/21 10/21/21 08:05 08:05 WBC 6.4 RBC 4.68 Hgb 12.7 Hct 38.8 MCV 82.9 MCH 27.0 MCHC 32.6 RDW 17.0 H Plt Count 226 Sodium 136 L Potassium 4.8 Chloride 110 H Carbon Dioxide 19 L BUN 66 H Creatinine 1.41 H Estimated GFR 37 L BUN/Creatinine Ratio 46.8 H Glucose 133 H Calcium 9.3 Magnesium 2.8 H PFSH Medical History Atrial fibrillation (09/20/10) Bilateral shoulder pain Bipolar disorder Bradycardia Cardiomyopathy Chronic diarrhea (06/10/16) Cognitive decline Controlled type 2 diabetes mellitus (09/20/10) Essential hypertension (09/20/10) Fatigue Head contusion History of Graves' disease History of placenta previa Irritable bowel syndrome Minor head injury without loss of consciousness Neuropathy of both feet Renal artery stenosis (09/20/10) Retinal scar Rheumatoid arthritis Right leg pain Sprain of left shoulder Stye Systolic congestive heart failure (09/20/10) Thyroid nodule Vision disorder Weakness Surgical History Anesthesia History of hip replacement History of knee replacement History of partial surgical removal of colon (01/17/17) Status post dilation and curettage Social History details: She is living with her in a trailer. She is a [employer] household members: spouse Smoking Status: Former smoker alcohol intake: former Discharge Assessment & Plan Assessment and Plan Assessment: #tachycardia HR 110s, off amio drip for 48 hours. Appreciate cardiology and ICU input. Last EF 20% this seems to be physiological. Patient's indicates she would not desire transport to [facility] cardiology. pacer with one wire in place. #Hypotension Stable without requiring pressor support. reevaluate at PCP f/u. hold lisinopril on dc. #Acute kidney injury.? 2/2 hypotension and tachycardia.? Stable this morning electrolyte looks okay. #Acute metabolic encephalopathy.? Rough nights. Better with family at bedside. seroquel qhs. #Elevated cardiac enzymes.? resolving with tenuous baseline cardiac status, does not desire transport to [facility] Cardiology #Acute on chronic systolic congestive heart failure.? Balancing diuresis vs BP, last EF 20%, IV lasix did help function some #Insulin dependent type 2 diabetes Patient's blood sugars are stable at this point, not needing insulin encourage eating. #Hypothyroidism stable continue with thyroid replacement.? #Depression.? in setting of heart failure continue with home antidepressant Disposition: home with home hospice Diet: heart healthy carb controlled Code: DNR MDM: Discharge Plan Discharge Plan Patient Disposition: Hospice - Home Discharge orders & Medications Prescriptions: Continued spironolactone 25 mg tablet 25 mg PO DAILY Qty: 90 3RF lisinopril 20 mg tablet 20 mg PO DAILY Qty: 90 3RF (DME) DISABLED PARKING PERMIT See Rx Instructions .ROUTE .MEDSUPPLY Qty: 1 0RF Rx Instructions: I find this patient to be medically disabled and qualified for disabled parking as indicated, and signed, on the accompanying Disabled Parking Application for Individuals. insulin syringe-needle U-100 [BD Insulin Syringe Ultra-Fine] 1 mL 30 gauge x 1/2 syringe See Rx Instructions .ROUTE .COMPLEX Qty: 100 3RF Dose Instruction: use as directed for daily insulin injections Rx Instructions: use as directed for daily insulin injections escitalopram oxalate 10 mg tablet 10 mg PO .HS Qty: 90 3RF Lantus U-100 Insulin 100 unit/mL solution 40 unit SUBCUT DAILY Qty: 10 11RF trazodone 50 mg tablet See Rx Instructions .ROUTE .COMPLEX Qty: 90 1RF Dose Instruction: TAKE ONE TABLET BY MOUTH AT BEDTIME Rx Instructions: TAKE ONE TABLET BY MOUTH AT BEDTIME memantine 5 mg tablet See Rx Instructions .ROUTE .COMPLEX Qty: 90 1RF Dose Instruction: TAKE ONE TABLET BY MOUTH NIGHTLY AT BEDTIME Rx Instructions: TAKE ONE TABLET BY MOUTH NIGHTLY AT BEDTIME acetaminophen 325 mg Tablet 650 mg PO Q6HR PRN (Reason: Fever/Mild Pain (1-3)) Qty: 30 0RF furosemide 40 mg tablet 40 mg PO BID Qty: 0 0RF Label Comments: TAKE ONE TABLET BY MOUTH TWICE DAILY diclofenac sodium [Voltaren Arthritis Pain] 1 % gel 2 g topical QID PRN (Reason: foot pain) Qty: 100 0RF Rx Instructions: apply to single elbow, wrist or hand; for hand includes palm/fingers/back of hand lidocaine 4 % cream 1 applic topical BID PRN (Reason: pain) Qty: 15 0RF loperamide 2 mg capsule 1 mg PO PRN MDD 16MG/24HR PRN (Reason: Loose Stool) 0RF Label Comments: TAKE 1 CAPSULE BY MOUTH EVERY 1 TO 2 HOURS NEEDED FOR LOOSE STOOLS --GIVE ONE CAPSULE AFTER EACH LOOSE STOOL; NOT TO EXCEED 8 CAPSULES IN 24 HOURS-- levothyroxine 100 mcg tablet 100 mcg PO DAILY 0RF Label Comments: TAKE ONE TABLET BY MOUTH ONE TIME DAILY Follow up/Referrals: Live Castro MD [Primary Care Provider] - Diet/Activity/Treatments Diet: Carb-consistent/Diabetic and Low-sodium Discharge Data Primary Care Provider: Live Castro Quality VTE Deep Vein Thrombosis/Pulmonary Embolism Present on Admission: No
--- NOTE | 2021-10-21 11:17 | PC.NURSE ---
pt discharged to home with /daughter with hospice to open case tomorrow . pt declined any rx or treatments this am- no iv access and madi, spouse has no further questions
== END 2021-10-21 11:15 | disposition hospice, home (50) | DRG 308 ==
LOC: ED 17:04 → AC 17:16 → ICU 10-18 12:08
PROVIDERS: Internal Medicine; Internal Medicine Pulmonary Disease; Admitting Provider Family Medicine; Emergency Provider Emergency Medicine; PCP Family Medicine; Referring Provider Emergency Medicine; Visit Provider Family Medicine
DX: R00.0 Tachycardia, unspecified (principal); I50.23 Acute on chronic systolic (congestive) heart failure; G93.41 Metabolic encephalopathy; N17.9 Acute kidney failure, unspecified; I13.0 Hypertensive heart and chronic kidney disease with heart failure and stage 1 through stage 4 chronic kidney disease, or unspecified chronic kidney disease; I95.9 Hypotension, unspecified; I44.7 Left bundle-branch block, unspecified; N18.9 Chronic kidney disease, unspecified; R77.8 Other specified abnormalities of plasma proteins; E11.22 Type 2 diabetes mellitus with diabetic chronic kidney disease; E03.9 Hypothyroidism, unspecified; F32.9 Major depressive disorder, single episode, unspecified; R10.9 Unspecified abdominal pain; E86.0 Dehydration; F03.90 Unspecified dementia, unspecified severity, without behavioral disturbance, psychotic disturbance, mood disturbance, and anxiety; Z20.822 Contact with and (suspected) exposure to COVID-19; Z79.4 Long term (current) use of insulin; Z66 Do not resuscitate; Z87.891 Personal history of nicotine dependence
CPT/HCPCS: 36415; 74176; 80048; 80053; 81003; 82550; 82962; 83605; 83690; 83735; 83880; 84443; 84484; 85025; 85027; 87040; 87635; 93005; 93307; 94762; 96360; 96361; 97163; 97530; 99285; C9803; J0282; J1160; J1650; J1815; J1940

== ENCOUNTER → 2021-10-31 10:16 | Outpatient (CLI) | payer OTHER, SELFPAY ==
[2021-03-11 12:45] VITALS: PULSE 81; RESP 22; O2SAT 98
[2021-10-21 08:24] VITALS: BMI 26.2
[2021-10-31 11:39] LABS: Calcium 9.3 mg/dL (8.4-10.2); Carbon Dioxide 16 mmol/L (22-32); Chloride 103 mmol/L (98-107); Estimated Glomerular Filt Rate 26 mL/min (>60); Glucose 98 mg/dL (80-110); Potassium 4.6 mmol/L (3.4-5.1); Sodium 136 mmol/L (137-145)
[2021-10-31 11:50] LABS: BUN Creatinine Ratio 61.4 (6-22)
[2021-10-31 11:52] LABS: HEMOLYSIS 61 (0-50)
[2021-10-31 12:00] LABS: Blood Urea Nitrogen 116 mg/dL (7-17)
== END ==
PROVIDERS: PCP Family Medicine; Referring Provider Family Medicine; Visit Provider Family Medicine
DX: N18.9 Chronic kidney disease, unspecified (principal); E11.9 Type 2 diabetes mellitus without complications
CPT/HCPCS: 80048